=== PATIENT | female | born 1950 | race Caucasian/White ===

== ENCOUNTER 2022-03-20 01:58 | Emergency (ER) | payer MEDICARE, OTHER, SELFPAY ==
[2022-03-20 02:02] VITALS: BP 153/103; PULSE 72; RESP 13; TEMP 37.1; O2SAT 98; BMI 39.9
--- NOTE | 2022-03-20 02:19 | EKG12_ITS ---
Test Reason : CP Blood Pressure : / mmHG Vent. Rate : 069 BPM Atrial Rate : 069 BPM P-R Int : 150 ms QRS Dur : 118 ms QT Int : 412 ms P-R-T Axes : 036 -06 018 degrees QTc Int : 441 ms Sinus rhythm with Premature atrial complexes Inferior infarct , age undetermined Abnormal ECG Confirmed by CHINMAY TAO, ISIS ([id number]), subeditor FRANCISCO ROJO ([id number]) on 03/22/2022 10:51:31 AM Referred By: TL Confirmed By:ISIS MOY MD
--- NOTE | 2022-03-20 02:20 | RAD_ITS ---
EXAM: XR CHEST, 1 VIEW CLINICAL INDICATION: chest pain TECHNIQUE: Frontal view of the chest. This report was created using [employer] report generation technology. COMPARISON: June 05, 2013 showing elevated left hemidiaphragm. FINDINGS: LUNGS AND PLEURAL SPACES: Mildly increased appearance of elevated left hemidiaphragm possibly due to scarring, it is difficult to exclude some adjacent atelectasis or infiltrate. No pneumothorax. No effusion. HEART: Unremarkable. Cardiac silhouette not enlarged. MEDIASTINUM: Central airways and mediastinal contour are unremarkable. BONES/JOINTS: Unremarkable. SOFT TISSUES: Unremarkable. RAD/Chest 1 View (Portable) IMPRESSION: Increased elevation of the left hemidiaphragm and left basilar consolidation. Cannot exclude left diaphragmatic hernia, left basilar atelectasis or infiltrate. This could be better evaluated by CT if it is thought to be indicated. Otherwise stable exam. Electronically Signed: Luann Kidd MD at 3:07 EDT ,
[2022-03-20 02:27] LABS: Absolute Lymphocyte Count 1.73 X10^3/uL (0.83-4.51); Basophil# 0.04 X10^3/uL; Basophil% 0.4 % (0-1); Eosinophil# 0.08 X10^3/uL; Eosinophils% 0.7 % (0-5); Hemoglobin 13.5 g/dL (12.0-15.0); Lymphocyte # 1.73 X10^3/ul (0.83-4.51); Lymphocyte % 15.8 % (19-41); Mean Corp Hgb Conc 32.9 g/dL (32-36); Mean Corpuscular Hgb 29.9 pg (27.0-32.0); Mean Corpuscular Volume 90.9 fL (81-99); Mean Platelet Vol. 9.9 fl (6.2-12.0); Monocyte# 0.99 X10^3/uL; Monocyte% 9.1 % (0-10); NRBC Flagged by Analyzer 0 % (0-5); Neutrophil # 8.02 X10^3/uL (2.7-7.7); Neutrophil % 73.5 % (47-70); Platelet Count 261 K/mm3 (150-450); RBC Distribution Width CV 12.7 % (11.6-14.6); RBC Distribution Width SD 41.6 fl (35.1-43.9); Red Blood Count 4.51 M/mm3 (4.2-5.4); White Blood Count 10.9 K/mm3 (4.4-11.0)
[2022-03-20 02:46] LABS: AST(SGOT) 6 U/L (15-37); Alanine Aminotransfer ALT/SGPT 16 U/L (13-56); Albumin, Serum 3.8 g/dL (3.2-5.0); Alkaline Phosphatase 86 U/L (45-117); Anion Gap 6 (5-15); BUN 34 mg/dL (7-18); BUN/Creat Ratio 34.3 RATIO (10-20); Bilirubin, Direct 0.16 mg/dL (0.00-0.30); Calcium,Total 8.9 mg/dL (8.5-10.1); Chloride 103 mmol/L (98-107); Creatinine, Serum 0.99 mg/dL (0.55-1.02); EST Glomerular Filtration Rate 59 mL/min (>60); Est Glom Filt Rate - Afr Amer 71 mL/min (>60); Estimated Creatinine Clearance 46.22 ml/min; Globulin 3.1 g/dL (2.2-4.2); Glucose 122 mg/dL (74-106); Lipase 169 U/L (73-393); Protein, Total 6.9 g/dL (6.4-8.2); Sodium Level 138 mmol/L (136-145); Troponin-I HS (w/2H Reflex) < 3 pg/mL (3.0-54.0)
--- NOTE | 2022-03-20 02:47 | EDS_ITS ---
HPI History of Present Illness Chief Complaint: Chest Pain Informant: patient and spouse/S.O. Narrative Narrative: Presents by private vehicle with spouse sudden onset midsternal chest pain that is sharp in nature while sitting in front of computer 12:30 AM 2 hours prior to arrival. Pain wraps around both sides and upper jaw. States had nausea. Dyspnea with her COPD history on chronic 2 L of oxygen. Baseline cough. Remote tobacco. She had similar symptoms 3 months ago lasting hour did not get evaluated. No cardiac history. History of paroxysmal atrial fibrillation currently on baby aspirin took it this evening. Currently symptoms subsiding. Denies abdominal pain. Prior Similar Symptoms: Yes CVD Risk Factors: Positive for Hypertension, Diabetes and Smoking [facility] Medical History Atrial fibrillation COPD (chronic obstructive pulmonary disease) Diabetes Hypertension Irregular heart beat Home Medications aspirin 81 mg PO DAILY 03/20/22 [History Last Taken Unknown] baclofen 10 mg PO TID 03/20/22 [History Last Taken Unknown] cyanocobalamin (vitamin B-12) 1,000 mcg PO DAILY 03/20/22 [History Last Taken Unknown] diltiazem HCl 30 mg PO TID 03/20/22 [History Last Taken Unknown] ergocalciferol (vitamin D2) [Vitamin D2] 1,250 mcg PO QWEEK 03/20/22 [History Last Taken Unknown] fluticasone propionate 2 spray INTRANASAL DAILY 03/20/22 [History Last Taken Unknown] furosemide 40 mg PO DAILY 03/20/22 [History Last Taken Unknown] gabapentin 600 mg PO TID 03/20/22 [History Last Taken Unknown] insulin aspart U-100 [Novolog U-100 Insulin aspart] unit SUBCUT TID 03/20/22 [History Last Taken Unknown] insulin glargine [Lantus U-100 Insulin] 36 unit SUBCUT QPM 03/20/22 [History Last Taken Unknown] lisinopril 5 mg PO DAILY 03/20/22 [History Last Taken Unknown] loratadine 10 mg PO DAILY 03/20/22 [History Last Taken Unknown] montelukast 10 mg PO QHS 03/20/22 [History Last Taken Unknown] pantoprazole 20 mg PO DAILY 03/20/22 [History Last Taken Unknown] ropinirole 0.5 mg PO BID 03/20/22 [History Last Taken Unknown] sertraline 100 mg PO DAILY 03/20/22 [History Last Taken Unknown] Allergy/AdvReac Type Severity Reaction Status Date / Time meperidine [From Demerol] Allergy Itching Verified 03/20/22 02:00 Penicillins [PCN] Allergy Hives Verified 03/20/22 02:00 Surgical History H/O: hysterectomy S/P hernia repair Social History Smoking Status: Former smoker ROS ROS ED Constitutional Constitutional ED: Denies chills, fever(s) or sweats Eyes Eyes: Denies change in vision ENT ENT ED: Denies dysphagia or sore throat Cardiovascular Cardiovascular: Reports chest pain; Denies leg edema, palpitations or racing heartbeat Respiratory/Chest Respiratory/Chest: Reports cough and dyspnea; Denies dyspnea on exertion Gastrointestinal Gastrointestinal: Reports nausea; Denies abdominal pain, diarrhea or vomiting Genitourinary Genitourinary ED: Denies dysuria, hematuria or urinary frequency Musculoskeletal Musculoskeletal: Denies back pain, extremity pain or neck pain Integumentary Denies rash or wounds Neurologic Neurologic: Denies headache(s), paresthesias or weakness EXAM Physical Exam Const Vital Signs: 03/20/22 02:02 03/20/22 02:06 03/20/22 03:06 Temperature 98.7 F Temperature Source Temporal Pulse Rate 72 65 Respiratory Rate 13 15 Respiratory Effort Normal Respiratory Pattern Normal Blood Pressure 153/103 H 140/69 H Blood Pressure Mean 119 92 Pulse Ox 98 95 Oxygen Delivery Method Nasal Cannula Room Air Oxygen Flow Rate (L/min) 2 03/20/22 04:14 03/20/22 04:58 Temperature Temperature Source Pulse Rate 86 68 Respiratory Rate 18 20 H Respiratory Effort Respiratory Pattern Blood Pressure 133/66 H 121/67 H Blood Pressure Mean 88 Pulse Ox 98 Oxygen Delivery Method Oxygen Flow Rate (L/min) Positive well nourished and well developed Constitutional Narrative: Stable on 2 L nasal cannula. General Appearance ED: well developed and NAD HEENT Reports moist mucous membranes normocephalic and atraumatic Eyes PERRL, EOMs intact bilaterally and conjunctivae normal General Eye ED: Yes normal appearance of both eyes Neck no lymphadenopathy and supple Neck Narrative: Healed orifice base of anterior neck from previous tracheostomy General: Negative for tenderness Chest Wall Chest: Negative for tenderness Resp normal respiratory effort and normal air movement Effort and Inspection: symmetric chest movement; Negative for respiratory distress Cardio regular rate, regular rhythm and no murmurs Peripheral Pulses: pulses 2+ throughout GI normal to inspection, nondistended, normoactive bowel sounds and non-tender Palpation: Negative for guarding or rebound tenderness present Back/Spine no CVA tenderness and no thoracic nor lumbar tenderness Extremity normal to inspection General Extremety ED: Negative for edema or tenderness General Extremity: Negative for edema Neuro oriented x3 and no sensory deficits noted Sensorium / Orientation: awake and alert Skin no rashes or lesions noted and no wounds Heart Score History: Slightly/Non-Suspicious ECG: Nonspecific Repolarization Age: >/= 65 years Risk Factors: 1 or 2 Risk Factors Troponin: </= Normal Limit Score: 4 MDM MDM MDM Narrative Medical decision making narrative: Patient EKG T wave inversions anterior leads however no old for comparison. Cardiac work-up initiated. She took aspirin at home. I also checked abdominal labs with pain that radiates to her back with nausea symptoms. 0330: Chest x-ray 1 view reviewed by myself and read by radiology left elevated hemidiaphragm chronic from previous. Labs all stable troponin initial less than 3 lipase normal. On reevaluation symptom-free. Awaiting delta troponin. 0415: Review Clinisync, obtain nuclear stress test from February 03, 2021 . Results normal perfusion without any evidence of ischemia. Left wall motion greater than 65%. 0445: Repeat troponin negative, patient remains asymptomatic. Patient will follow-up with her PCP, strict return precautions. All questions were answered. Lab Data Attestation: I reviewed the patient's lab results. Labs: Laboratory Results - last 24 hr 03/20/22 03/20/22 03/20/22 02:07 02:07 04:11 WBC 10.9 RBC 4.51 Hgb 13.5 Hct 41.0 MCV 90.9 MCH 29.9 MCHC 32.9 RDW Std Deviation 41.6 RDW Coeff of Gil 12.7 Plt Count 261 MPV 9.9 Immature Gran % (Auto) 0.500 Neut % (Auto) 73.5 H Lymph % (Auto) 15.8 L [place] % (Auto) 9.1 Eos % (Auto) 0.7 Baso % (Auto) 0.4 Absolute Neuts (auto) 8.0 H Absolute Lymphs (auto) 1.73 Nucleated RBC % 0 Sodium 138 Potassium 4.0 Chloride 103 Carbon Dioxide 29.0 Anion Gap 6 BUN 34 H Creatinine 0.99 Estim Creat Clear Calc 46.22 Est GFR (MDRD) Af Amer 71 Est GFR (MDRD) Non-Af 59 L BUN/Creatinine Ratio 34.3 H Glucose 122 H Calcium 8.9 Total Bilirubin 0.40 Direct Bilirubin 0.16 AST 6 L ALT 16 Alkaline Phosphatase 86 Troponin I High Sens < 3 L 3 Total Protein 6.9 Albumin 3.8 Globulin 3.1 Lipase 169 Radiography Chest X-Ray - ED: 1 View and Read by ED Physician Diagnostic Testing: Clinical Impression(s) from Imaging Studies Chest X-Ray 03/20/22 02:20 IMPRESSION: Increased elevation of the left hemidiaphragm and left basilar consolidation. Cannot exclude left diaphragmatic hernia, left basilar atelectasis or infiltrate. This could be better evaluated by CT if it is thought to be indicated. Otherwise stable exam. Electronically Signed: Luann Kidd MD at 3:07 EDT , EKG Initial EKG: Attestation: I personally reviewed and interpreted this EKG as follows: Comments: Sinus rate of 69, no ST changes there is T wave inversions V1 V2. PAC noted. Discharge Plan Triage Chief Complaint: Chest Pain ED Provider: Hans Pearson Dx/Rx/DC Orders Clinical Impression: Chest pain, History of COPD Instructions: ED Chest Pain, Uncertain Cause Prescriptions: No Action furosemide 40 mg Tablet 40 mg PO DAILY RF: 0 gabapentin 600 mg tablet 600 mg PO TID RF: 0 sertraline 100 mg Tablet 100 mg PO DAILY RF: 0 cyanocobalamin (vitamin B-12) 1,000 mcg tablet 1,000 mcg PO DAILY RF: 0 pantoprazole 20 mg Tablet,Delayed Release (Dr/Ec) 20 mg PO DAILY RF: 0 baclofen 10 mg Tablet 10 mg PO TID RF: 0 ropinirole 0.5 mg tablet 0.5 mg PO BID RF: 0 montelukast 10 mg Tablet 10 mg PO QHS RF: 0 lisinopril 5 mg Tablet 5 mg PO DAILY RF: 0 ergocalciferol (vitamin D2) [Vitamin D2] 1,250 mcg (50,000 unit) Capsule 1,250 mcg PO QWEEK RF: 0 diltiazem HCl 30 mg Tablet 30 mg PO TID RF: 0 fluticasone propionate 50 mcg/actuation [place],Suspension 2 spray INTRANASAL DAILY RF: 0 loratadine 10 mg Capsule 10 mg PO DAILY RF: 0 aspirin 81 mg Capsule 81 mg PO DAILY RF: 0 insulin aspart U-100 [Novolog U-100 Insulin aspart] 100 unit/mL Solution SUBCUT TID RF: 0 Lantus U-100 Insulin 100 unit/mL Cartridge 36 unit SUBCUT QPM RF: 0 Primary Care Provider: Gregg Mccarthy Referrals: Gregg Mccarthy MD [Primary Care Provider] - 3-5 Days Activity Restrictions/Additional Instructions: Chest pain with a negative work-up. Follow-up with your doctor. Return if any worsening symptoms. Disposition Disposition: Home, Self Care Discharge Date/Time: 03/20/22 04:58
[2022-03-20 03:06] VITALS: BP 140/69; PULSE 65; RESP 15; O2SAT 95
[2022-03-20 04:14] VITALS: BP 133/66; PULSE 86; RESP 18
[2022-03-20 04:24] LABS: Reflex Troponin-HS? (from REC) Y
[2022-03-20 04:36] LABS: Troponin-I HS 3 pg/mL (3.0-54.0)
[2022-03-20 04:58] VITALS: BP 121/67; PULSE 68; RESP 20; O2SAT 98
== END 2022-03-20 04:58 | disposition home or self-care (01) ==
PROVIDERS: Emergency Provider Emergency Medicine; PCP Internal Medicine; Visit Provider Emergency Medicine
DX: R07.9 Chest pain, unspecified (principal); J44.9 Chronic obstructive pulmonary disease, unspecified; I48.0 Paroxysmal atrial fibrillation; E11.9 Type 2 diabetes mellitus without complications; Z79.4 Long term (current) use of insulin; R11.0 Nausea; Z87.891 Personal history of nicotine dependence; I10 Essential (primary) hypertension; R68.84 Jaw pain; Z99.81 Dependence on supplemental oxygen; Z79.82 Long term (current) use of aspirin; Z79.899 Other long term (current) drug therapy; I49.1 Atrial premature depolarization
CPT/HCPCS: 36415; 71045; 80048; 80076; 83690; 84484; 85025; 93005; 99285; A4216

== ENCOUNTER → 2022-04-09 | Outpatient (CLI) | payer MEDICARE, OTHER, SELFPAY ==
[2022-04-09 12:40] LABS: Absolute Lymphocyte Count 0.97 X10^3/uL (0.83-4.51); Absolute Neutrophil Count 4.7 X10^3/uL (2.0-7.7); Basophil# 0.02 X10^3/uL; Basophil% 0.3 % (0-1); Eosinophil# 0.16 X10^3/uL; Eosinophils% 2.5 % (0-5); Hematocrit 39.6 % (37-47); Hemoglobin 12.7 g/dL (12.0-15.0); Lymphocyte # 0.97 X10^3/ul (0.83-4.51); Lymphocyte % 14.9 % (19-41); Mean Corp Hgb Conc 32.1 g/dL (32-36); Mean Corpuscular Volume 93.6 fL (81-99); Monocyte# 0.58 X10^3/uL; Monocyte% 8.9 % (0-10); NRBC Flagged by Analyzer 0 % (0-5); Neutrophil # 4.73 X10^3/uL (2.7-7.7); Neutrophil % 72.9 % (47-70); Platelet Count 195 K/mm3 (150-450); RBC Distribution Width CV 13.2 % (11.6-14.6); RBC Distribution Width SD 45.1 fl (35.1-43.9); Red Blood Count 4.23 M/mm3 (4.2-5.4); White Blood Count 6.5 K/mm3 (4.4-11.0)
[2022-04-09 13:08] LABS: Anion Gap 6 (5-15); BUN 21 mg/dL (7-18); BUN/Creat Ratio 28.1 RATIO (10-20); Calcium,Total 9.3 mg/dL (8.5-10.1); Chloride 101 mmol/L (98-107); Creatinine, Serum 0.75 mg/dL (0.55-1.02); EST Glomerular Filtration Rate 81 mL/min (>60); Est Glom Filt Rate - Afr Amer 98 mL/min (>60); Glucose 82 mg/dL (74-106); Potassium 4.1 mmol/L (3.5-5.1); Sodium Level 140 mmol/L (136-145)
== END | disposition home or self-care (01) ==
LOC: LAB 11:53
PROVIDERS: PCP Internal Medicine; Referring Provider Internal Medicine Cardiovascular Disease; Visit Provider Internal Medicine Cardiovascular Disease
DX: R07.9 Chest pain, unspecified (principal); I45.2 Bifascicular block; I10 Essential (primary) hypertension
CPT/HCPCS: 36415; 80048; 85025

== ENCOUNTER 2022-04-23 09:58 | Day surgery (SDC) | payer MEDICARE, OTHER, SELFPAY ==
[2022-04-22 14:32] VITALS: BMI 39.7
--- NOTE | 2022-04-23 12:05 | CL.D_ITS ---
Patient Name: MENA JENKINS Study Date: 04/23/2022 Performing: Domenic Humphries MD Ht: 63 inches 160 cm : 1950 Wt: 238.4 lbs 108 kg Age: 71 Gender: female BSA: 2.08 PROCEDURE(S) PERFORMED [id number])LHC/COR/LV CLINICAL PROFILE AND INDICATIONS Indications: Worsening Angina Heart Failure: None Stress/Imaging Stress/Image Study Performed: No CAD Presentations: Stable angina. CONCLUSIONS Normal coronary arteries Normal LV size, wall motion,and systolic function RECOMMENDATIONS Medical therapy DESCRIPTION OF PROCEDURE The patient arrived to the procedure lab. The risks and benefits of the procedure as well as a full d escription of our services here and current unavailability of surgical backup were fully explained to the patient and/or their significant other prior to the catheterization. The Timeout was completed, verifying the correct patient and procedure. The patient's procedural site was prepped and draped in the usual fashion. Local anesthetic was given subcutaneously to right radial region with Lidocaine 2% . Using a modified Seldinger technique, arterial access was obtained via the right radial artery, a 6 Fr sheath was inserted. Left Coronary Artery selective angiography was performed in multiple views u sing a 5 Fr. 4.0 [place] catheter. Right Coronary Artery selective angiography was then performed in mu ltiple views using a 5 Fr. JR 5 catheter. Right Coronary Artery selective angiography was then perfor med in multiple views using a 5 Fr. JR4 catheter. Left Ventriculography was performed in [place] projection using a 5 Fr. [place] catheter. LV to AO pullback pressures were then recorded. CORONARY ANGIOGRAPHY DOMINANCE: Right Dominant LEFT HEART ASSESSMENT Left Ventricular Ejection Fraction: by LV Gram 60 % Normal LV wall motion Normal Left Ventricular systolic function LEFT MAIN: Dual ostium LEFT ANTERIOR DESCENDING ARTERY: No significant disease noted CIRCUMFLEX ARTERY: No significant disease noted RIGHT CORONARY ARTERY: No significant disease noted COMPLICATIONS PROCEDURE MEDICATIONS Versed 1 mg IV Fentanyl 50 mcg IV Versed 1 mg IV Versed 1 mg IV Versed 1 mg IV Oxygen: 2 L/min via nasal cannula Heparin given IA 04/23/2022 11:34:08 Verapamil 2.5mg, Ntg 100mcgs, 3000 units of Heparin given IA 04/23/2022 11:34:08 SUMMARY OF HEMODYNAMIC DATA Time AIR REST ECG 10:25:37 ECG 11:28:22 AO 98/61 (77) SA 11:39:50 LV 106/19, 28 11:59:31 LV 113/19, 36 11:59:42 LV 105/23, 37 12:00:27 LVp 105/26, 40 12:00:31 AOp 113/69 (91) 12:00:38 Signed By Domenic Humphries MD On 04/23/2022 12:04:50 PM Domenic Humphries MD
[2022-04-23 14:15] LABS: Bedside Glucose 173 mg/dL (74-106)
== END 2022-04-23 13:59 | disposition home or self-care (01) ==
LOC: CLSP 10:01
PROVIDERS: PCP Internal Medicine; Referring Provider Internal Medicine Cardiovascular Disease; Visit Provider Internal Medicine Cardiovascular Disease
DX: I25.118 Atherosclerotic heart disease of native coronary artery with other forms of angina pectoris (principal); J44.9 Chronic obstructive pulmonary disease, unspecified; E11.42 Type 2 diabetes mellitus with diabetic polyneuropathy; I48.0 Paroxysmal atrial fibrillation; Z79.4 Long term (current) use of insulin; F32.A Depression, unspecified; G47.33 Obstructive sleep apnea (adult) (pediatric); E55.9 Vitamin D deficiency, unspecified; I10 Essential (primary) hypertension; E78.5 Hyperlipidemia, unspecified; E66.9 Obesity, unspecified; S09.90XA Unspecified injury of head, initial encounter; Z79.82 Long term (current) use of aspirin; Z79.899 Other long term (current) drug therapy; Z87.891 Personal history of nicotine dependence; W01.0XXA Fall on same level from slipping, tripping and stumbling without subsequent striking against object, initial encounter; Y92.232 Corridor of hospital as the place of occurrence of the external cause
CPT/HCPCS: 70450; 82962; 93458; 99152; 99153; 99282; J7030; Q9967; C1769; C1894

== ENCOUNTER 2022-04-23 13:59 | Emergency (ER) | payer MEDICARE, OTHER, SELFPAY ==
[2022-04-23 14:00] VITALS: BP 131/68; PULSE 68; RESP 19; TEMP 36.4; O2SAT 97; BMI 42.3
--- NOTE | 2022-04-23 14:11 | ED.VIS.FALL ---
HPI <CHRISTIANO Rowland - Last Filed: 04/23/22 15:12> HPI - Fall History of Present Illness Chief Complaint: Fall Narrative Narrative: Just prior to arrival patient was in the Certified Prosthetist/Orthotist and after clean cath was postprocedure and was discharged. She was walking down the [place] with her walker and she fell and hit her head, left shoulder, left knee and right hand on the ground. She states she had tried to catch herself. Her rolling walker sometimes leaned to one side which caused her to fall. She denies any preceding headache, chest pain, shortness of breath, dizziness etc. She now has a mild headache. She only takes baby aspirin, no blood thinners. Denies visual changes nausea or vomiting. PFSH <CHRISTIANO Rowland - Last Filed: 04/23/22 15:12> [facility] Medical History Atrial fibrillation Chronic low back pain Chronic respiratory failure with hypoxia, on home O2 therapy Class 2 obesity with body mass index (BMI) of 39.0 to 39.9 in adult COPD (chronic obstructive pulmonary disease) Cor pulmonale Depression Essential hypertension Essential tremor Fibromyalgia H/O fibromyositis History of rheumatic fever Hyperlipidemia Irregular heart beat Kidney failure Obesity SELENA (obstructive sleep apnea) Osteoarthritis Paroxysmal atrial fibrillation (07/2020) Restless legs syndrome (RLS) 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 Thoracic outlet syndrome TMJ (dislocation of temporomandibular joint) Type 2 diabetes mellitus with diabetic polyneuropathy Vitamin B 12 deficiency Vitamin D deficiency Home Medications baclofen 10 mg tablet 10 mg PO TID 03/20/22 [History Last Taken Unknown] cyanocobalamin (vitamin B-12) 1,000 mcg tablet 1,000 mcg PO DAILY 03/20/22 [History Last Taken Unknown] ergocalciferol (vitamin D2) 1,250 mcg (50,000 unit) capsule (Vitamin D2) 1,250 mcg PO QWEEK 03/20/22 [History Last Taken Unknown] fluticasone propionate 50 mcg/actuation nasal spray,suspension 2 spray intranasal DAILY 03/20/22 [History Last Taken Unknown] lisinopril 5 mg tablet 5 mg PO DAILY 03/20/22 [History Last Taken 04/23/22] loratadine 10 mg capsule 10 mg PO DAILY 03/20/22 [History Last Taken Unknown] montelukast 10 mg tablet 10 mg PO QHS 03/20/22 [History Last Taken Unknown] pantoprazole 20 mg tablet,delayed release 20 mg PO DAILY 03/20/22 [History Last Taken Unknown] ropinirole 0.5 mg tablet 0.5 mg PO BID 03/20/22 [History Last Taken Unknown] acetaminophen 500 mg tablet 1,000 mg PO Q6H 04/02/22 [History Last Taken Unknown] aspirin 81 mg tablet,delayed release (Adult Low Dose Aspirin) 81 mg PO DAILY 04/02/22 [History Last Taken 04/23/22] gabapentin 600 mg tablet 1,200 mg PO TID 04/02/22 [History Last Taken Unknown] insulin aspart U-100 100 unit/mL subcutaneous solution (Novolog U-100 Insulin aspart) 10 unit subcut TID 04/02/22 [History Last Taken Unknown] insulin glargine 100 unit/mL subcutaneous cartridge 50 unit subcut QPM 04/02/22 [History Last Taken Unknown] oxycodone-acetaminophen 7.5 mg-325 mg tablet 1 tab PO BID PRN Chest Pain 04/02/22 [History Last Taken Unknown] potassium chloride 20 mEq tablet,extended release(part/cryst) 20 meq PO DAILY 04/02/22 [History Last Taken 04/23/22] atorvastatin 40 mg tablet (Lipitor) 40 mg PO DAILY #90 tabs 04/09/22 [Rx Last Taken Unknown] furosemide 20 mg tablet 40 mg PO BID 04/09/22 [History Last Taken Unknown] metoprolol succinate 50 mg tablet,extended release 24 hr (Toprol XL) 50 mg PO DAILY #90 tabs 04/09/22 [Rx Last Taken 04/23/22] primidone 50 mg tablet 50 mg PO BID 04/09/22 [History Last Taken Unknown] sertraline 100 mg tablet 100 mg PO DAILY 04/09/22 [History Last Taken Unknown] albuterol sulfate 90 mcg/actuation aerosol inhaler 2 puff inhalation Q6H PRN shortness of breath or wheezing #8.5 grams 04/20/22 [Rx Last Taken Unknown] blood sugar diagnostic (Accu-Chek SmartView Test Strips) #100 ea 04/20/22 [Rx Last Taken Unknown] ipratropium 0.5 mg-albuterol 3 mg (2.5 mg base)/3 mL nebulization soln 3 ml inhalation 4X/DAY #180 mL 04/20/22 [Rx Last Taken Unknown] Allergy/AdvReac Type Severity Reaction Status Date / Time house dust Allergy Nasal Verified 04/20/22 15:02 congestion and watery eyes meperidine [From Demerol] Allergy Itching Verified 04/20/22 15:02 mold Allergy nasal Verified 04/20/22 15:02 congestion and watery eyes Penicillins [PCN] Allergy Hives Verified 04/20/22 15:02 trees Allergy Unknown nasal Uncoded 04/20/22 15:02 congestion and watery eyes Family History Mother COPD (chronic obstructive pulmonary disease) Colon cancer Father COPD (chronic obstructive pulmonary disease) Myocardial infarction Alcoholism Emphysema lung Sister Breast cancer Cancer Lung cancer Brother COPD (chronic obstructive pulmonary disease) Aunt Diabetes Surgical History H/O: hysterectomy History of colonoscopy History of dilatation and curettage History of knee replacement History of radiofrequency ablation (RFA) of nerve of cervical spine History of thumb surgery History of tonsillectomy History of tracheostomy History of umbilical hernia repair Social History household members: spouse current occupational status: retired 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 Eyes: Negative for visual change. ENT: Negative for sore throat, ear pain, rhinorrhea. CVS: Negative for palpitations, chest pain, syncope. Respiratory: Negative for shortness of breath, cough, orthopnea. GI: Negative for abdominal pain, nausea, vomiting, diarrhea, constipation, melena, hematochezia. : Negative for dysuria, hematuria or frequency. Neuro: Positive for headache, negative for motor/sensory dysfunction. Skin: Negative for rash, abscess, or wound. Musc: Negative for joint pain, swelling, trauma. Heme: Negative for easy bruising, bleeding, lymphadenopathy. EXAM <CHRISTIANO Rowland - Last Filed: 04/23/22 15:12> Physical Exam Narrative Exam Narrative: CONST: Patient sitting in no acute distress. EYES: Normal inspection. HEAD: Very small left temporal hematoma, no abrasions or lacerations, no deformity or crepitus. No raccoon eyes or lo sign, no hemotympanum, no nasal septal hematoma, no CSF otorrhea or rhinorrhea. NECK: Normal inspection. No midline spinal tenderness, no step off or crepitus. RESP: No respiratory distress, CTAB. CVS: Regular rate and rhythm, no murmur, no gallop. ABD: Soft and nontender, no guarding or rebound, nondistended. Pelvis: Stable, nontender. Back: Normal inspection, no midline spinal tenderness, no step off or crepitus. SKIN: Color normal, no rash, warm, dry, intact. EXTREMITIES: Normal appearance, no tenderness of upper or lower extremities. 2+ radial and DP pulses. NEURO: Oriented x4. PSYCH: Normal affect. Const Vital Signs: 04/23/22 14:00 04/23/22 14:05 Temperature 97.5 F L Temperature Source Temporal Pulse Rate 68 Respiratory Rate 19 H Respiratory Effort Normal Non-Labored Respiratory Depth Normal Respiratory Pattern Normal Blood Pressure 131/68 H Blood Pressure Mean 89 Pulse Ox 97 Oxygen Delivery Method Nasal Cannula Nasal Cannula Oxygen Flow Rate (L/min) 2 2 <Dr. Jose Nash MD - Last Filed: 04/23/22 15:12> Physical Exam Const Vital Signs: 04/23/22 14:00 04/23/22 14:05 Temperature 97.5 F L Temperature Source Temporal Pulse Rate 68 Respiratory Rate 19 H Respiratory Effort Normal Non-Labored Respiratory Depth Normal Respiratory Pattern Normal Blood Pressure 131/68 H Blood Pressure Mean 89 Pulse Ox 97 Oxygen Delivery Method Nasal Cannula Nasal Cannula Oxygen Flow Rate (L/min) 2 2 MDM <CHRISTIANO Rowland - Last Filed: 04/23/22 15:12> MDM MDM Narrative Medical decision making narrative: Patient had an outpatient heart cath that was clean and had been discharged. She was walking down the hallway with her walker and fell striking her head shoulder and side on the ground. No LOC. She has mild headache but no other symptoms. Not on anticoagulation. She has a very small left temporal hematoma but no deformity or crepitus. No signs of basilar skull fracture. Pupils equal and reactive, extraocular motion intact. No tenderness of the facial bones. No tenderness of chest abdomen back spine or upper or lower extremities. Neurovascularly intact. Records from cath procedure state she got versed, fentanyl, and heparin. Thus I will do a CT scan of her brain with the head injury. CT is negative. Patient was discharged in stable condition. 1. Closed head injury without loss of consciousness Radiography Diagnostic Testing: Clinical Impression(s) from Imaging Studies Brain CT 04/23/22 14:48 IMPRESSION: Normal unenhanced CT scan of the brain. Electronically Signed: Eddie Galindo MD at 15:06 EDT , <Dr. Jose Nash MD - Last Filed: 04/23/22 15:12> [facility] MDM Narrative Medical decision making narrative: Patient had an outpatient heart cath that was clean and had been discharged. She was walking down the hallway with her walker and fell striking her head shoulder and side on the ground. No LOC. She has mild headache but no other symptoms. Not on anticoagulation. She has a very small left temporal hematoma but no deformity or crepitus. No signs of basilar skull fracture. Pupils equal and reactive, extraocular motion intact. No tenderness of the facial bones. No tenderness of chest abdomen back spine or upper or lower extremities. Neurovascularly intact. Records from cath procedure state she got versed, fentanyl, and heparin. Thus I will do a CT scan of her brain with the head injury. CT scan shows no acute process. Patient is doing well. We will get her home at this time. Radiography Diagnostic Testing: Clinical Impression(s) from Imaging Studies Brain CT 04/23/22 14:48 IMPRESSION: Normal unenhanced CT scan of the brain. Electronically Signed: Eddie Galindo MD at 15:06 EDT , Treatment and Re-Evaluation Narrative: I have personally performed a face to face assessment of the patient and have reviewed the AZIZA Note. I performed a substantive portion of the visit including all aspects of the following. My chou findings include: History is consistent with patient following. She had a heart catheterization. This catheterization ended up showing normal coronary arteries. She states she was using her wheeled walker that also doubles as a wheelchair. She states that that was the fourth time that that walker has thrown me. She states it tipped over when she leans on it. Her verifies this. She states she did not pass out. She did hit her head. She has little soreness but that is it. She is not on blood thinners. However, she did get heparin during her procedure just before this. She also got multiple doses of Versed and some fentanyl. Exam shows the patient is wide-awake alert and appropriate. There is small contusion on the side of her head. Neck is not tender. No extremity injury. She really does not want blood work done as she just had blood work done beginning of this month. I think that is reasonable because she was not syncopal. This was a mechanical fall. Medical Decison Making: Patient will have CT of the head done. As long as she is having no further symptoms and that is normal we should be able to get her home. Discharge Plan Triage Chief Complaint: Fall ED Midlevel Provider: Darby Altman ED Provider: Jose Nash Dx/Rx/DC Orders Clinical Impression: Head injury Instructions: ED Head Injury (Adult) Prescriptions: No Action sertraline 100 mg tablet 100 mg PO DAILY furosemide 20 mg tablet 40 mg PO BID primidone 50 mg tablet 50 mg PO BID Label Comments: TAKE 2 TABLETS BY MOUTH TWICE DAILY metoprolol succinate [Toprol XL] 50 mg tablet extended release 24 hr 50 mg PO DAILY Qty: 90 3RF atorvastatin [Lipitor] 40 mg tablet 40 mg PO DAILY Qty: 90 4RF aspirin [Adult Low Dose Aspirin] 81 mg tablet,delayed release (DR/EC) 81 mg PO DAILY oxycodone-acetaminophen 7.5-325 mg tablet 1 tab PO BID PRN (Reason: Chest Pain) Label Comments: TAKE 1 TABLET BY MOUTH TWICE DAILY NEEDED FOR PAIN potassium chloride 20 mEq tablet,ER particles/crystals 20 meq PO DAILY Label Comments: TAKE 1 TABLET BY MOUTH ONCE DAILY acetaminophen 500 mg tablet 1,000 mg PO Q6H (DME) Accu-Chek SmartView Test Strip Strip See Rx Instructions .Route Qty: 100 0RF Rx Instructions: As directed albuterol sulfate 90 mcg/actuation HFA aerosol inhaler 2 puff inhalation Q6H PRN (Reason: shortness of breath or wheezing) Qty: 8.5 1RF ipratropium-albuterol 0.5 mg-3 mg(2.5 mg base)/3 mL solution for nebulization 3 ml inhalation 4X/DAY Qty: 180 0RF cyanocobalamin (vitamin B-12) 1,000 mcg tablet 1,000 mcg PO DAILY Label Comments: TAKE 1 TABLET BY MOUTH ONCE DAILY DIRECTED pantoprazole 20 mg Tablet,Delayed Release (Dr/Ec) 20 mg PO DAILY baclofen 10 mg Tablet 10 mg PO TID ropinirole 0.5 mg tablet 0.5 mg PO BID Label Comments: TAKE 1 TAB BY MOUTH DAILY 1-3 HRS BEFORE BEDTIME montelukast 10 mg Tablet 10 mg PO QHS lisinopril 5 mg Tablet 5 mg PO DAILY ergocalciferol (vitamin D2) [Vitamin D2] 1,250 mcg (50,000 unit) Capsule 1,250 mcg PO QWEEK Rx Instructions: tuesday fluticasone propionate 50 mcg/actuation [place],Suspension 2 spray INTRANASAL DAILY loratadine 10 mg Capsule 10 mg PO DAILY gabapentin 600 mg tablet 1,200 mg PO TID Label Comments: TAKE 2 TABLETS BY MOUTH THREE TIMES DAILY insulin glargine 100 unit/mL cartridge 50 unit SUBCUT QPM insulin aspart U-100 [Novolog U-100 Insulin aspart] 100 unit/mL solution 10 unit SUBCUT TID Rx Instructions: sliding scale Primary Care Provider: Aixa Magdalneo Referrals: Aixa Magdaleno MD [Primary Care Provider] - Activity Restrictions/Additional Instructions: The CT scan of your head looked normal. Take tylenol as needed. Disposition Disposition: Home, Self Care
--- NOTE | 2022-04-23 14:48 | CT_ITS ---
STUDY: CT BRAIN WITHOUT CONTRAST REASON FOR EXAM: Female, 71 years old. Head injury RADIATION DOSAGE (If Supplied By Facility): CTDIvol = ( 44.99 ) mGy, DLP = ( 846.73 ) mGycm TECHNIQUE: Transaxial CT imaging of the brain was performed without administration of intravenous contrast material. Individualized dose optimization techniques were used for this CT. COMPARISON: No relevant priors. FINDINGS: Normal soft tissue structures. There is hyperostosis frontalis internus. Normal size ventricles and extra-axial spaces for the patient''s age. Normal white matter tracts of the cerebral hemispheres. Normal basal ganglia and thalami. Normal brainstem. Normal cerebellum. There is no intracranial hemorrhage. There are no findings of an acute ischemic infarction. Normal visualized paranasal sinuses. CT/Brain/Head without Contrast IMPRESSION: Normal unenhanced CT scan of the brain. Electronically Signed: Eddie Galindo MD at 15:06 EDT ,
[2022-04-23 15:19] VITALS: BP 118/79; PULSE 68; RESP 17; O2SAT 98
== END 2022-04-23 15:19 | disposition home or self-care (01) ==
PROVIDERS: Emergency Provider Emergency Medicine; PCP Internal Medicine; Visit Provider Emergency Medicine
DX: S09.90XA Unspecified injury of head, initial encounter (principal); J44.9 Chronic obstructive pulmonary disease, unspecified; E11.42 Type 2 diabetes mellitus with diabetic polyneuropathy; E78.5 Hyperlipidemia, unspecified; I10 Essential (primary) hypertension; E66.9 Obesity, unspecified; Z87.891 Personal history of nicotine dependence; W01.0XXA Fall on same level from slipping, tripping and stumbling without subsequent striking against object, initial encounter; Y92.232 Corridor of hospital as the place of occurrence of the external cause; Z79.899 Other long term (current) drug therapy
CPT/HCPCS: 99282; 70450

== ENCOUNTER → 2022-05-07 | Outpatient (CLI) | payer MEDICARE, OTHER, SELFPAY ==
--- NOTE | 2022-05-07 09:50 | RAD_ITS ---
STUDY: AIR CONTRAST UPPER GI SERIES and esophagram. REASON FOR EXAM: Female, 71 years old. R13.10 - Dysphagia, unspecified FLUOROSCOPY TIME (if supplied): (36 seconds) minutes/seconds. 32 images were obtained. TECHNIQUE: SINGLE CONTRAST AND AIR CONTRAST FLUOROSCOPIC IMAGES. COMPARISON: None. FINDINGS: The cervical esophagus demonstrates normal motility without aspiration. There is no stricture or extrinsic mass effect. No intraluminal polypoid mass is identified. The patient ingested a 12 mm tablet of barium without any difficulty. The thoracic esophagus distends well without stricture or mucosal fold thickening. No mucosal ulcerations are identified. There is no extrinsic mass effect. There are no diverticula. No hiatal hernia or gastroesophageal reflux was identified. The stomach distends well without mucosal fold thickening or mucosal ulceration. There is no intraluminal mass. The duodenal bulb is freely distensible without deformity or ulceration. The duodenal sweep is normal in position and caliber. There is evidence of a large diverticulum in the third portion of the duodenum. 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 Electronically Signed: Eddie Galindo MD at 11:00 EDT ,
== END | disposition home or self-care (01) ==
LOC: RAD 09:28
PROVIDERS: PCP Internal Medicine; Referring Provider Surgery; Visit Provider Surgery
DX: R13.10 Dysphagia, unspecified (principal); R11.10 Vomiting, unspecified
CPT/HCPCS: 74246

== ENCOUNTER 2022-05-19 08:20 | Day surgery (SDC) | payer MEDICARE, OTHER, SELFPAY ==
[2022-05-19] VITALS (7 sets, daily range): BP systolic 93–116; BP diastolic 52–64; PULSE 59–78; RESP 16; TEMP 36.5–36.6; O2SAT 95–98; BMI 41.1
--- NOTE | 2022-05-19 08:48 | HP.PCM_ITS ---
History and Physical Date of Admission: 05/19/22 Date of Service:? 04/28/22 MR#: [id number] Acct: [id number] Name:? MENA JENKINS : 1950 ? Provider: Dr. Marcela Norman MD Age/Sex:? 71/F ? Location: [facility] Status: Signed Intake Vital Signs ? 04/20/2214:59 04/23/2214:00 04/28/2209:06 Height 5 ft 3 in 5 ft 5 in 5 ft 5 in Weight: ? 254 lb 10.142 oz 248 lb 8 oz BMI ? 42.3 41.3 BP ? 131/68 H 113/69 Blood Pressure Location ? ? Rt radial Position ? ? Sitting Respiration ? 19 H 20 H Pulse ? 68 70 Pulse Source ? ? NIBP Temp ? 97.5 F L 97.7 F L Temp Source ? Temporal Temporal Pulse Oximetry (%) ? 97 97 Oxygen Delivery Method ? ? room air Oxygen Flow Rate (L/min) ? 2 ? 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 Required: No Is patient in pain?: No Allergies house dust Allergy (Verified 04/28/22 09:11) Nasal congestion and watery eyesmeperidine [From Demerol] Allergy (Verified 04/28/22 09:11) Itchingmold Allergy (Verified 04/28/22 09:11) nasal congestion and watery eyesPenicillins [PCN] Allergy (Verified 04/28/22 09:11) Hivestrees Allergy (Unknown, Uncoded 04/28/22 09:11) nasal congestion and watery eyes Is last menstrual period known: No Post menopausal: Yes Patient : No [facility] Medical History?(Updated 04/28/22 @ 09:13 by Tasha Lassiter) Atrial fibrillation Chronic low back pain Chronic respiratory failure with hypoxia, on home O2 therapy Class 2 obesity with body mass index (BMI) of 39.0 to 39.9 in adult COPD (chronic obstructive pulmonary disease) Cor pulmonale Depression Essential hypertension Essential tremor Fibromyalgia H/O fibromyositis History of rheumatic fever Hyperlipidemia Irregular heart beat Kidney failure Obesity SELENA (obstructive sleep apnea) Osteoarthritis Paroxysmal atrial fibrillation (07/2020) Restless legs syndrome (RLS) 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 Mother COPD (chronic obstructive pulmonary disease) Colon cancerFather COPD (chronic obstructive pulmonary disease) Myocardial infarction Alcoholism Emphysema lungSister Breast cancer Cancer ?? ? Lung cancerBrother COPD (chronic obstructive pulmonary disease)Aunt Diabetes Social History? household members:? spouse current occupational status:? retired current occupation:? 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 Former smoker Tobacco: How many years used:? 20 Electronic Cigarette Use:? not used alcohol intake:? never substance use type:? does not use caffeine:? Yes do you feel safe at home:? Yes HPI HPI HPI: MENA JENKINS, is a 71 F who presents to the office today for frequent regurgitation.? Patient states she has previously had barium swallow about 10 years ago and told she had a spastic esophagus.? Patient did have a trach in 2013 due to respiratory failure which was also removed in 2013.? Patient's never had a previous EGD.? Patient states that she has been on the PPI and had that has decreased the burning in the esophagus.? Patient states that daily she will have regurgitation of food and it can be solid and occasionally liquid as well.? Patient states she feels like it goes down but then it comes right back up either sticks in her throat goes back down or comes back into her mouth.? Patient states she may have been told she had a hiatal hernia in the past.? Patient just had a colonoscopy in January 2022 recommended follow-up in 5 years per pt. Exam Const General: cooperative, healthy appearing and no acute distress HENMT Head: normal to inspection Resp Effort & Inspection: normal respiratory effort Cardio Rate: regular rate GI Inspection: non-distended Palpation: soft, no guarding and nontender Skin General: no rashes or lesions noted Neuro General: patient oriented x3 Extrem General: no clubbing, cyanosis or edema Psych Affect: normal affect Assessment and Plan Assessment and Plan (1) Regurgitation and rechewing of food: ?Status:?Acute (2) Dysphagia: ?Status:?Acute ? ? ? Orders: Orders Upper GI w/BA Swallow 04/28/22 R11.10 - Vomiting, unspecified, R13.10 - Dysphagia, unspecified ? Plan We will plan to check an barium swallow.? Discussed with patient that if she does have any evidence of a stricture would plan to have 1 my colleagues who does dilatations to her EGD otherwise we will plan to proceed with an EGD at that time.? Will call patient with barium swallow results. I have discussed the above with the patient. I have offered the patient esophagogastroduodenoscopy for evaluation. I have explained the risks/benefits of the procedure and described the procedure.? I have discussed the risks with the patient, including but not limited to:? infection, bleeding, perforation of the GI tract requiring emergency surgery, inability to complete the procedure, injury to any internal organs, complications of anesthesia, etc. - the patient understands and agrees to proceed. I have answered all the patient's questions to the patient's satisfaction and the patient has no further questions. Marcela Norman M.D. Pager: [phone] [facility] [address] [place] [address], [address] [place] [address] Office: [phone] Coding Level of Care Code Off vis,new,level 3 Diagnoses Regurgitation and rechewing of food? R11.10 Dysphagia? R13.10 04/30/22 1049 <Electronically signed by Marcela Norman MD> Date Marcela Norman MD
[2022-05-19] MEDS: Lactated Ringers 1,000 ML 15 ML IV (09:05)
[2022-05-19 09:25] LABS: Bedside Glucose 135 mg/dL (74-106)
--- NOTE | 2022-05-19 09:45 | EGD_PTH ---
PATIENT: MENA JENKINS LOC: EN U#:[id number] AGE/SX: 72/F ROOM: RE05/19/[address]: Dr. Marcela Norman MD : 1950 BED: DIS: 05/19/2022 SPEC #: [id number] RECD: 05/19/22 11:04 STATUS: CLIFFORD ROGERIO #: [id number] JUNO: 05/19/22 09:[address]: Marcela Norman DEPT: SURGICAL PATHOLOGY RECD BY: Nadira Vargas ENTERED: 05/19/22 11:43 SP TYPE: EGD BIOPSY OT DR: Dr. Aixa Magdaleno MD Tissues: ULCER Procedures: Surgery Specimen Level IV HEADER OPERATION: EGD ([facility]) PRE-OP DIAGNOSIS: Regurgitation and re-chewing of food, dysphagia TISSUE SUBMITTED: Pre-pyloric ulcer biopsy MICROSCOPIC DIAGNOSIS Pre-pyloric ulcer, biopsy: Acute and chronic inflammation with focal denudation of mucosa. AM:willy 05/20/2022 COMMENT The results of immunohistochemistry for Helicobacter pylori will be reported separately ([id number]). MICROSCOPIC DESCRIPTION Slides are reviewed. GROSS DESCRIPTION Received in fixative is one container labeled with the patient's name and designated pre-pyloric ulcer biopsy. The specimen consists of one irregular fragment of light jasmine soft tissue that measures 0.5 x 0.2 x 0.1 cm. The specimen is totally submitted in one cassette. / SJ:willy 05/19/2022 TC:2 CPT: 13540
--- NOTE | 2022-05-19 09:45 | IMM_PTH ---
PATIENT: MENA JENKINS LOC: EN U#:[id number] AGE/SX: 72/F ROOM: RE05/19/[address]: Dr. Marcela Norman MD : 1950 BED: DIS: 05/19/2022 SPEC #: [id number] RECD: 05/19/22 11:40 STATUS: [place] REQ #: [id number] JUNO: 05/19/22 09:[address]: Marcela Norman DEPT: IMMUNOHISTOCHEMISTRY RECD BY: Meme Belcher ENTERED: 05/19/22 11:41 SP TYPE: IMMUNO OTHR DR: Dr. Aixa Magdaleno MD Tissues: Pyloric portion of stomach Procedures: H Pylori (initial) PHYSICIAN & INSTITUTION [place] [id number] SPECIMEN INFORMATION: Tissue Source: Pre-pyloric ulcer biopsy Clinical Info: Regurgitation and re-chewing of foot, dysphagia Specimen Number: [id number] CPT code: 22991 METHODOLOGY: Deparaffinized sections of prefer/formalin-fixed tissue or PAP/DQ stained slides are incubated with monoclonal/polyclonal antibodies/oligonucleotide probes. Localization is made via biotin free immunoperoxidase method. Appropriate controls are performed and reacted as expected. Results on target cell population are indicated in the following table: RESULTS: ANTIBODY / CLONE RESULT H Pylori (polyclonal) negative These tests were developed and their performance characteristics determined by [facility]. They may not have been cleared or approved by the U.S. Food and Drug Administration. The FDA has determined that such clearance or approval is not necessary. The above immunohistochemical/dualISH markers are ordered and reviewed by the Pathologist. INTERPRETATION: Pre-pyloric ulcer, biopsy: Negative for Helicobacter pylori organisms. AM:willy 05/20/2022
--- NOTE | 2022-05-19 10:10 | OP.EGD_ITS ---
Patient Name: Tish Herring Procedure Date: 05/19/2022 9:40 AM Date of : 1950 Age: 72 Procedure: Upper GI endoscopy Indications: Dysphagia Providers: Marcela Norman MD Referring MD: Aixa Magdaleno Md Medicines: Monitored Anesthesia Care Patient Profile: This is a 72 year old female. Complications: No immediate complications. Procedure: Pre-Anesthesia Assessment: - Prior to the procedure, a History and Physical was performed, and patient medications and allergies were reviewed. The patient's tolerance of previous anesthesia was also reviewed. The risks and benefits of the procedure and the sedation options and risks were discussed with the patient. All questions were answered, and informed consent was obtained. Prior Anticoagulants: The patient has taken aspirin [Days Prior to Procedure]. ASA Grade Assessment: Per anesthesia. After reviewing the risks and benefits, the patient was deemed in satisfactory condition to undergo the procedure. After obtaining informed consent, the endoscope was passed under direct vision. Throughout the procedure, the patient's blood pressure, pulse, and oxygen saturations were monitored continuously. The gastroscope was introduced through the mouth, and advanced to the second part of duodenum. The upper GI endoscopy was accomplished without difficulty. The patient tolerated the procedure well. Scope In: 9:53:40 AM Scope Out: 9:57:47 AM Total Procedure Duration Time 0 hours 4 minutes 7 seconds Findings: The Z-line was variable and was found 40 cm from the incisors. One non-bleeding superficial gastric ulcer with no stigmata of bleeding was found in the prepyloric region of the stomach. The lesion was 5 mm in largest dimension. Biopsies were taken with a cold forceps for histology. Biopsies were taken with a cold forceps for Helicobacter pylori cultures. Striped moderately erythematous mucosa without bleeding was found in the prepyloric region of the stomach. The cardia and gastric fundus were normal on retroflexion. No endoscopic abnormality was evident in the esophagus to explain the patient's complaint of dysphagia. Impression: - Z-line variable, 40 cm from the incisors. - Non-bleeding gastric ulcer with no stigmata of bleeding. Biopsied. - Erythematous mucosa in the prepyloric region of the stomach. - No endoscopic esophageal abnormality to explain patient's dysphagia. Recommendation: - Await pathology results. - Discharge patient to home. - Resume previous diet. - Continue present medications. - Use sucralfate tablets 1 gram PO QID for 1 month. - Use Protonix (pantoprazole) 40 mg PO daily. Procedure Code(s): --- Professional --- 01038, Esophagogastroduodenoscopy, flexible, transoral; with biopsy, single or multiple Diagnosis Code(s): --- Professional --- K22.8, Other specified diseases of esophagus K25.9, Gastric ulcer, unspecified as acute or chronic, without hemorrhage or perforation K31.89, Other diseases of stomach and duodenum R13.10, Dysphagia, unspecified CPT copyright 2017 [employer] [place] [employer]. All rights reserved. The codes documented in this report are preliminary and upon inpatient coder review may be revised to meet current compliance requirements. MD Marcela Aldana MD 05/19/2022 10:10:09 AM This report has been signed electronically. Number of Addenda: 0 Note Initiated On: 05/19/2022 9:40 AM
--- NOTE | 2022-05-19 10:10 | OP.CCLET_ITS ---
05/19/2022 Aixa Magdaleno Md Re : Upper GI endoscopy procedure for Tish Herring Dear Sharla This procedure was performed on Thursday, May 19, 2022. My impressions and recommendations are as follows: Impressions : - Z-line variable, 40 cm from the incisors. - Non-bleeding gastric ulcer with no stigmata of bleeding. Biopsied. - Erythematous mucosa in the prepyloric region of the stomach. - No endoscopic esophageal abnormality to explain patient's dysphagia. Recommendations : - Await pathology results. - Discharge patient to home. - Resume previous diet. - Continue present medications. - Use sucralfate tablets 1 gram PO QID for 1 month. - Use Protonix (pantoprazole) 40 mg PO daily. My findings are described in the full procedure note, which is enclosed. If I can be of further assistance, please feel free to contact me at Doctor phone number(s): , Work: . Sincerely, MD Marcela Aldana MD 05/19/2022 10:10:09 AM This report has been signed electronically.
== END 2022-05-19 11:07 | disposition home or self-care (01) ==
LOC: EN 08:22 → AC 08:23
PROVIDERS: PCP Internal Medicine; Referring Provider Internal Medicine; Visit Provider Surgery
PROC: 0DJ08ZZ Inspection of Upper Intestinal Tract, Via Natural or Artificial Opening Endoscopic (ICD-10-PCS; CPT 43235; principal; 2022-05-19 09:40)
DX: K25.3 Acute gastric ulcer without hemorrhage or perforation (principal); J44.9 Chronic obstructive pulmonary disease, unspecified; I48.0 Paroxysmal atrial fibrillation; Z79.4 Long term (current) use of insulin; E11.9 Type 2 diabetes mellitus without complications; K31.89 Other diseases of stomach and duodenum; G47.33 Obstructive sleep apnea (adult) (pediatric); F32.A Depression, unspecified; I10 Essential (primary) hypertension; E78.00 Pure hypercholesterolemia, unspecified; E55.9 Vitamin D deficiency, unspecified; Z99.81 Dependence on supplemental oxygen; Z87.891 Personal history of nicotine dependence; Z79.899 Other long term (current) drug therapy; Z79.82 Long term (current) use of aspirin
CPT/HCPCS: 43239; 82962; 88305; 88342; J7120; J2405

== ENCOUNTER → 2022-06-17 | Outpatient (CLI) | payer MEDICARE, OTHER, SELFPAY | END | disposition home or self-care (01) | LOC: LABSPEC 11:19 | PROVIDERS: PCP Internal Medicine; Referring Provider Internal Medicine; Visit Provider Internal Medicine | DX: R06.02 Shortness of breath (principal); Z20.822 Contact with and (suspected) exposure to COVID-19 | CPT/HCPCS: 87635; U0003; U0005 ==

== ENCOUNTER → 2022-07-12 | Outpatient (CLI) | payer MEDICARE, OTHER, SELFPAY ==
--- NOTE | 2022-07-12 11:20 | RAD_ITS ---
HISTORY: FALL. TECHNIQUE: XR Spine Lumbar 2 or 3 Views. COMPARISON: None. FINDINGS: VERTEBRAE: Vertebral body heights preserved. Degenerative changes of the posterior elements. Incomplete fusion of the S1 posterior elements. ALIGNMENT: Mild retrolisthesis of L1-2, L2-3, L3-4, and L4-5. INTERVERTEBRAL DISCS: Intervertebral disc space narrowing with endplate sclerosis and osteophytes at L1-2, L2-3, and L4-5. RAD/Lumbar Spine 2 or 3 Views IMPRESSION: Multilevel degenerative change with mild retrolisthesis at multiple levels. No acute fracture identified in the lumbar spine. Electronically Signed: Radha Flores MD at 11:46 EDT ,
== END | disposition home or self-care (01) ==
PROVIDERS: PCP Internal Medicine; Referring Provider Anesthesiology Pain Medicine; Visit Provider Anesthesiology Pain Medicine
DX: M47.816 Spondylosis without myelopathy or radiculopathy, lumbar region (principal); M51.36 Other intervertebral disc degeneration, lumbar region
CPT/HCPCS: 72100

== ENCOUNTER 2022-07-15 14:00 | Outpatient (RCR) | payer MEDICARE, OTHER, SELFPAY ==
--- NOTE | 2022-06-08 13:27 | HP.PTEVAL_ITS ---
Patient's Visit Information MENA JENKINS is a 72 year old F referred to Physical Therapy by Dr. Estela Marie MD with a diagnosis of BACK PAIN. Date of Evaluation: 06/08/22 Physical Therapist: Maikol Belcher, PT, Cert MDT, OCS - Visit Plan Frequency: 2x /Week Duration: 4 Weeks Plan: PT INTERVETIONS DLS ,POSTURAL EX'S ,FUNCTIONAL STRENGTHENING ,LUMBAR ROM AND MODALTIES PRN - Subjective This 72 y/o female presents to physical therapy back pain. Patient has had back many years ~ [address] Richards did 2 epidural injections which did not help. MEDS bactofilin and oxycodone. Location of pain symmetrical lumbar and burning in hips. Although ,prior to injection did have radicular symptoms in legs. MRI showed stenosis. Aggravating factors standing < 2mins, walking thus needs rollator, unable lift and difficulty with bending. Alleviating rest. Denies paresthesia /tingling in legs but has neuropathy. Coughing/sneezing +.Bowel/bladder -. Patient affects sleeping. Patient pain affects QOL and function with ADL's and housework tasks. Patient goal is to stand long enough make dinner . Patient zero gravity recliner. Patient has had bilateral TKR, COPD and is on conts 02. SOCAIL: . VOCATION: RETIRED - Pain Bilateral Back Pain Intensity (Out of 10): 5 Pain Intensity Range: 10 - Objective POSTURE: mild forward posture. GAIT: slow braden mild forward posture with rollator and 2L02. NEURO: denies paresthesia/tingling ,reflexes L3-4,L4-5 ,L5 - S1 1/3. PALAPTION: tender L-S region. FLEXABLITY: hams min tight ,piriformis mod tight. LUMBAR ROM: flexion mod loss pain ,extension severe loss pain ,side glides mod loss - Special Tests L/S Slump test left side: Negative L/S Slump test right side: Negative L/S Left Straight Leg Raise: Negative L/S Right Straight Leg Raise: Negative L/S Left Femoral Nerve Tension: Negative L/S Right Femoral Nerve Tension: Negative Lumbar Standing: Flexion - Mechanical Response: No effect Lumbar Standing: Flexion - Symptoms During Testing: Increases Lumbar Standing: Flexion - Symptoms After Testing: No worse Lumbar Standing: Extension - Mechanical Response: No effect Lumbar Standing: Extension - Symptoms During Testing: Increases Lumbar Standing: Extension - Symptoms After Testing: No worse Lumbar Standing: Right Side Glides - Mechanical Response: No effect Lumbar Standing: Right Side [place] - Symptoms During Testing: No effect Lumbar Standing: Right Side [place] - Symptoms After Testing: No effect Lumbar Standing: Left Side [place] - Mechanical Response: No effect Lumbar Standing: Left Side [place] - Symptoms During Testing: No effect Lumbar Standing: Left Side [place] - Symptoms After Testing: No effect Comments:: Seated back flexion increases NW - Balance/Special Test Scores Oswestry Low Back Score: 33 - Goals Goal 1:: Patient to be I with HEP for back Goal Time Frame: 4-6 Weeks Goal 2:: Patient to improve posture for ADLS' 80% of the time Goal Time Frame: 4-6 Weeks Goal 3:: Patient to improve lumbar ROM for function of recovery to tie shoes Goal Time Frame: 4-6 Weeks Goal 4:: Patient to demonstrate 50% improvement with improved function with less pain Goal Time Frame: 4-6 Weeks Goal 5:: Patient to improve back oswestry score by 5 points to improve QOL Goal Time Frame: 4-6 Weeks - Rehabilitation Potential Physical Therapy Diagnosis: This patient has multiple comorbities along with pain lumbar worse with positioning especially standing walking affects ADL's and cooking and motion testing along with deconditioned and uses 02 and rollator for gait thus will benefit from skilled PT Rehabilitation Potential: Fair - Anticipated Interventions Patient/Client Instruction: Educate patient on: Condition, Plan of Care For the Purpose of:: To decrease pain, To increase ROM, To improve muscle performance and motor function, To increase tolerance to activity/condition/position, To improve performance and independence with ADL's, To improve ability of physical actions for home/community/work/leisure, To improve health of tissue, To decrease soft tissue restriction, To increase flexibility/ROM, To reduce risk of recurrence Therapeutic Exercise to Include: Strength training, Endurance training, Balance training, Body mechanics, Postural training, Flexibilty training, Dynamic Lumbar Stabilization Comment: BLE For the Purpose of:: To decrease pain, To increase ROM, To improve muscle performance and motor function, To increase tolerance to activity/condition/position, To improve performance and independence with ADL's, To improve ability of physical actions for home/community/work/leisure, To improve health of tissue, To decrease soft tissue restriction, To increase flexibility/ROM, To improve tolerance to ADL's TENS: Yes IF ES: Yes Cryotherapy (ice pack, ice massage): Yes Thermo therapy (hot pack): Yes Ultrasound (thermal/non thermal): Yes For the Purpose of:: To decrease pain, To increase ROM, To improve nutrient delivery to tissue, To increase oxygenation perfusion, To improve health of t issue, To decrease soft tissue restriction Thank you for the opportunity to evaluate your patient. For Medicare and Medicare HMO plans, please review the plan of care and approve it. It will need to be FAXED BACK to us at [phone] for Medicare purposes. For Medicare only, by signing this I certify the plan of care. Please let me know if there are questions or concerns regarding this plan of care. Physician Signature: Date:
--- NOTE | 2022-07-15 14:28 | HP.PTDCSUM ---
It has been my pleasure to treat MENA JENKINS referred by Dr. Estela Marie MD, with the diagnosis of BACK PAIN for a total of 6 visit(s). Discharge Date: 07/15/22 Please see the following information for a summary of their discharge status. Subjective: Back is worse today .walked without at [facility]raunt Bilateral Back Pain Intensity (Out of 10): 8 % Improvement: 20 Objective/Function: POSTURE: mild forward posture. GAIT: ambulautes with rollator 2 Lo2. NEURO: intact. MMT: 5/5 QUADS/HAMS ,HIP FLEXION 4/5. LUMBAR ROM: flexion mod loss ,extension severe loss Goal 1:: Patient to be I with HEP for back Goal Progress: Goal Met Goal 2:: Patient to improve posture for ADLS' 80% of the time Goal Progress: Progressing Goal 3:: Patient to improve lumbar ROM for function of recovery to tie shoes Goal Progress: Progressing Goal 4:: Patient to demonstrate 50% improvement with improved function with less pain Goal Progress: Progressing Goal 5:: Patient to improve back oswestry score by 5 points to improve QOL Goal Progress: Goal Met Plan: d/c Discharge Comments: hep If there are questions or concerns regarding this patient's physical therapy, please feel free to call me at [phone]. Thank you for the referral of this patient. Sincerely, Maikol Belcher PT, Cert MDT, OCS Balance/Gait/Functional tests - Balance/Special Test Scores Oswestry Low Back Score: 10
== END 2022-07-15 19:00 | disposition home or self-care (01) ==
LOC: PT 14:00
PROVIDERS: PCP Internal Medicine; Referring Provider Anesthesiology Pain Medicine; Visit Provider Anesthesiology Pain Medicine
DX: M54.9 Dorsalgia, unspecified (principal)
CPT/HCPCS: 97110; 97162; 97530

== ENCOUNTER → 2022-12-31 | Outpatient (CLI) | payer MEDICARE, OTHER, SELFPAY ==
[2022-12-31 14:34] LABS: Absolute Lymphocyte Count 2.17 X10^3/uL (0.83-4.51); Absolute Neutrophil Count 6.7 X10^3/uL (2.0-7.7); Basophil# 0.05 X10^3/uL; Basophil% 0.5 % (0-1); Eosinophil# 0.09 X10^3/uL; Eosinophils% 0.9 % (0-5); Lymphocyte # 2.17 X10^3/ul (0.83-4.51); Lymphocyte % 22.1 % (19-41); Mean Corp Hgb Conc 32.6 g/dL (32-36); Mean Corpuscular Volume 92.3 fL (81-99); Mean Platelet Vol. 10.5 fl (6.2-12.0); Monocyte# 0.83 X10^3/uL; Monocyte% 8.4 % (0-10); NRBC Flagged by Analyzer 0 % (0-5); Neutrophil # 6.65 X10^3/uL (2.7-7.7); Neutrophil % 67.6 % (47-70); Platelet Count 259 K/mm3 (150-450); RBC Distribution Width CV 12.8 % (11.6-14.6); RBC Distribution Width SD 43.2 fl (35.1-43.9); Red Blood Count 4.66 M/mm3 (4.2-5.4); White Blood Count 9.8 K/mm3 (4.4-11.0)
[2022-12-31 14:59] LABS: Microalbumin,Random Urine 13.5 mg/L (NO RANGE EST.); Microalbumin:Creatinine Ratio 16.9 mg/g CRE (<30 mg/g CRE)
[2022-12-31 15:00] LABS: ALB/GLOB Ratio 1.2 RATIO (0.9-2.4); AST(SGOT) 7 U/L (15-37); Alanine Aminotransfer ALT/SGPT 18 U/L (13-56); Albumin, Serum 3.5 g/dL (3.2-5.0); Alkaline Phosphatase 67 U/L (45-117); Anion Gap 5 (5-15); BUN 21 mg/dL (7-18); BUN/Creat Ratio 22.8 RATIO (10-20); Calcium,Total 8.4 mg/dL (8.5-10.1); Chloride 103 mmol/L (98-107); Cholesterol 138 mg/dL (200); Creatinine, Serum 0.92 mg/dL (0.55-1.02); EST Glomerular Filtration Rate 63 mL/min (>60); Est Glom Filt Rate - Afr Amer 77 mL/min (>60); Glucose 81 mg/dL (74-106); High Density Lipoprotein 57 mg/dL; Potassium 3.2 mmol/L (3.5-5.1); Protein, Total 6.5 g/dL (6.4-8.2); Sodium Level 140 mmol/L (136-145); Triglycerides 104 mg/dL; Very Low Density Lipoprotein 21 mg/dL (5-40)
== END | disposition home or self-care (01) ==
LOC: LAB 13:09
PROVIDERS: PCP Internal Medicine; Referring Provider Internal Medicine; Visit Provider Internal Medicine
DX: J44.9 Chronic obstructive pulmonary disease, unspecified (principal); E11.9 Type 2 diabetes mellitus without complications; Z79.4 Long term (current) use of insulin
CPT/HCPCS: 36415; 80053; 80061; 82043; 82570; 85025

== ENCOUNTER → 2023-02-01 | Outpatient (CLI) | payer MEDICARE, OTHER, SELFPAY ==
[2023-02-01 18:06] LABS: Amphetamine Urine VISTA NEGATIVE (<1000 ng/mL); Barbiturate Urine VISTA NEGATIVE (< 200 ng/mL); Benzodiazepine Urine VISTA NEGATIVE (< 200 ng/mL); Cocaine Urine VISTA NEGATIVE (< 300 ng/mL); Ecstacy Urine VISTA NEGATIVE (< 500 ng/mL); Methadone Urine VISTA NEGATIVE (< 300 ng/mL); PCP Urine VISTA NEGATIVE (< 25 ng/mL); THC Urine VISTA NEGATIVE (< 50 ng/mL); Vista UDS pH Range 4
== END | disposition home or self-care (01) ==
PROVIDERS: PCP Internal Medicine; Referring Provider Anesthesiology Pain Medicine; Visit Provider Anesthesiology Pain Medicine
DX: F11.20 Opioid dependence, uncomplicated (principal)
CPT/HCPCS: 80307

== ENCOUNTER → 2023-02-28 | Outpatient (CLI) | payer MEDICARE, OTHER, SELFPAY ==
--- NOTE | 2023-02-28 12:45 | RAD_ITS ---
INDICATION: COPD exacerbation EXAMINATION/TECHNIQUE: X-RAY - XR Chest 2 Views COMPARISON: Chest radiograph from March 20, 2022. FINDINGS: Support devices: None. Stable elevated left hemidiaphragm. Stable fibrotic changes and parenchymal scarring in the bilateral lung bases. Stable chronic blunting of the left costophrenic angle. No focal consolidations, effusions, or sizable pneumothorax. Cardiomediastinal silhouette is within normal limits. No acute findings in the bones or soft tissues. RAD/Chest PA and Lateral IMPRESSION: No acute cardiopulmonary process. Stable exam since March 20, 2022. Electronically Signed: Rivera Gallo MD at 13:04 EDT ,
== END | disposition home or self-care (01) ==
LOC: RAD 12:48
PROVIDERS: PCP Internal Medicine; Referring Provider Internal Medicine; Visit Provider Internal Medicine
DX: J44.1 Chronic obstructive pulmonary disease with (acute) exacerbation (principal)
CPT/HCPCS: 71046

== ENCOUNTER 2023-03-24 14:09 | Emergency (ER) | payer MEDICARE, OTHER, SELFPAY ==
[2023-03-24 14:10] VITALS: BP 115/46; PULSE 85; RESP 18; TEMP 35.2; O2SAT 97
--- NOTE | 2023-03-24 14:40 | EKG12_ITS ---
Test Reason : SOB Blood Pressure : / mmHG Vent. Rate : 080 BPM Atrial Rate : 080 BPM P-R Int : 158 ms QRS Dur : 120 ms QT Int : 414 ms P-R-T Axes : 007 005 014 degrees QTc Int : 477 ms Sinus rhythm with Premature atrial complexes Right bundle branch block Inferior infarct , age undetermined Abnormal ECG Confirmed by KYLE TAO, CHRISTY ([id number]), visual effects editor FRANCISCO ROJO ([id number]) on 03/28/2023 10:44:48 A M Referred By: Confirmed By:BRIONNA WRIGHT MD
[2023-03-24 14:53] VITALS: PULSE 78; RESP 16; O2SAT 97
[2023-03-24] MEDS: Ipratropium/Albuterol Sulfate 3 ML AMPUL.NEB INHALATION (14:53)
[2023-03-24] MEDS: Albuterol 2.5 MG/3 ML VIAL.NEB. INHALATION (14:53)
[2023-03-24 15:02] VITALS: BMI 38.4
[2023-03-24 15:15] LABS: Absolute Lymphocyte Count 0.84 X10^3/uL (0.83-4.51); Basophil# 0.05 X10^3/uL; Basophil% 0.5 % (0-1); Eosinophil# 0.09 X10^3/uL; Hematocrit 35.3 % (37-47); Hemoglobin 11.3 g/dL (12.0-15.0); Lymphocyte # 0.84 X10^3/ul (0.83-4.51); Mean Corpuscular Hgb 29.9 pg (27.0-32.0); Mean Corpuscular Volume 93.4 fL (81-99); Mean Platelet Vol. 10.3 fl (6.2-12.0); Monocyte# 1.34 X10^3/uL; Monocyte% 14.3 % (0-10); NRBC Flagged by Analyzer 0 % (0-5); Neutrophil # 6.97 X10^3/uL (2.7-7.7); Neutrophil % 74.6 % (47-70); Platelet Count 168 K/mm3 (150-450); RBC Distribution Width CV 12.5 % (11.6-14.6); Red Blood Count 3.78 M/mm3 (4.2-5.4); White Blood Count 9.4 K/mm3 (4.4-11.0)
--- NOTE | 2023-03-24 15:20 | RAD_ITS ---
STUDY: X-RAY CHEST REASON FOR EXAM: Female, 72 years old. Cough TECHNIQUE: PA and lateral views of the chest. COMPARISON: Comparison is made with prior study dated February 28, 2023. FINDINGS: EKG electrodes are seen. Stable elevation of the left diaphragm. Increased markings at the left lung base suggestive of early left basilar infiltrate. Blunting of the left costophrenic angle. Normal size heart. Normal mediastinum and geraldo. Normal visualized pulmonary arteries. Normal visualized aortic arch and descending thoracic aorta. Normal visualized thoracic spine. Normal visualized ribs, clavicles, and shoulders. There is no demonstrated abnormality of the visualized soft tissue structures of the upper abdomen. RAD/Chest PA and Lateral IMPRESSION: Increased markings at the left lung base with blunting of the left costophrenic angle. Follow-up is recommended. Electronically Signed: Eddie Galindo MD at 15:39 EDT ,
[2023-03-24 15:34] LABS: Anion Gap 8 (5-15); BUN 16 mg/dL (7-18); BUN/Creat Ratio 12.7 RATIO (10-20); Calcium,Total 8.4 mg/dL (8.5-10.1); Chloride 99 mmol/L (98-107); Creatinine, Serum 1.26 mg/dL (0.55-1.02); EST Glomerular Filtration Rate 44 mL/min (>60); Est Glom Filt Rate - Afr Amer 53 mL/min (>60); Estimated Creatinine Clearance 35.78 ml/min; Glucose 148 mg/dL (74-106); Potassium 3.6 mmol/L (3.5-5.1); Sodium Level 133 mmol/L (136-145); Troponin-I HS 4 pg/mL (3.0-54.0)
[2023-03-24 15:37] LABS: BNP,B-Type NATRIURETIC PEPTIDE 91.7 pg/mL (0-100)
[2023-03-24 16:03] VITALS: BP 95/58; PULSE 77; RESP 18; O2SAT 96
--- NOTE | 2023-03-24 16:11 | EX.ED.DYSGE1 ---
HPI <ELISEO Barragan - Last Filed: 03/24/23 19:24> History of Present Illness Chief Complaint: Shortness of Breath Narrative Narrative: Patient is a 72-year-old female with history of COPD, diabetes, A-fib currently not on blood thinners who presents to the emergency department for shortness of breath, increased cough over the last 2 weeks. Patient has been seen by his PCP, checks x-ray was unremarkable. Patient continued to feel weak, has worsening cough and is here for evaluation. Patient states today she got extremely sweaty and lightheaded while she was watching TV and this does not usually happen her. She denies any specific chest pain, jaw pain, radiation to the left arm. PFS <ELISEO Barragan - Last Filed: 03/24/23 19:24> [facility] Medical History Arthritis Atrial fibrillation Cardiology follow-up encounter Chronic cough Chronic low back pain Chronic respiratory failure with hypoxia, on home O2 therapy Class 2 obesity with body mass index (BMI) of 39.0 to 39.9 in adult COPD (chronic obstructive pulmonary disease) Cor pulmonale CPAP (continuous positive airway pressure) dependence Depression Easy bruising Essential hypertension Essential tremor Fibromyalgia Former smoker Gastric reflux H/O fibromyositis High cholesterol History of atrial fibrillation History of diverticulitis History of echocardiogram History of edema History of rheumatic fever History of steroid therapy History of stress test Hyperlipidemia Irregular heart beat Kidney failure Leg cramps Obesity SELENA (obstructive sleep apnea) Osteoarthritis Paroxysmal atrial fibrillation (07/2020) Restless legs syndrome (RLS) 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 Thoracic outlet syndrome TMJ (dislocation of temporomandibular joint) Type 2 diabetes mellitus with diabetic polyneuropathy Vitamin B 12 deficiency Vitamin D deficiency Walker as ambulation aid Wears glasses Home Medications baclofen 10 mg tablet 10 mg PO TID 03/20/22 [History Last Taken Unknown] ergocalciferol (vitamin D2) 1,250 mcg (50,000 unit) capsule (Vitamin D2) 1,250 mcg PO QWEEK 03/20/22 [History Last Taken Unknown] fluticasone propionate 50 mcg/actuation nasal spray,suspension 2 spray intranasal DAILY 03/20/22 [History Last Taken 05/19/22] lisinopril 5 mg tablet 5 mg PO DAILY 03/20/22 [History Last Taken 05/19/22] loratadine 10 mg capsule 10 mg PO DAILY 03/20/22 [History Last Taken Unknown] ropinirole 0.5 mg tablet 0.5 mg PO BID RLS 03/20/22 [History Last Taken Unknown] acetaminophen 500 mg tablet 1,000 mg PO Q6H 04/02/22 [History Last Taken Unknown] aspirin 81 mg tablet,delayed release (Adult Low Dose Aspirin) 81 mg PO DAILY 04/02/22 [History Last Taken 04/23/22] insulin aspart U-100 100 unit/mL subcutaneous solution (Novolog U-100 Insulin aspart) 10 unit subcut .SLIDING SCALE 04/02/22 [History Last Taken Unknown] insulin glargine 100 unit/mL subcutaneous cartridge 36 unit subcut QPM 04/02/22 [History Last Taken Unknown] atorvastatin 40 mg tablet (Lipitor) 40 mg PO DAILY #90 tabs 04/09/22 [Rx Last Taken 05/19/22] furosemide 20 mg tablet 40 mg PO BID 04/09/22 [History Last Taken Unknown] albuterol sulfate 90 mcg/actuation aerosol inhaler 2 puff inhalation Q6H PRN shortness of breath or wheezing #8.5 grams 04/20/22 [Rx Last Taken Unknown] montelukast 10 mg tablet 10 mg PO QHS #90 tabs 06/08/22 [Rx Last Taken Unknown] albuterol sulfate 2.5 mg/3 mL (0.083 %) solution for nebulization 2.5 mg continuous nebulization 09/16/22 [History Last Taken Unknown] fluticasone 250 mcg-salmeterol 50 mcg/dose blistr powdr for inhalation (Wixela Inhub) 1 inh inhalation 09/16/22 [History Last Taken Unknown] tramadol 50 mg tablet 50 mg PO 09/16/22 [History Last Taken Unknown] metoprolol succinate 50 mg tablet,extended release 24 hr (Toprol XL) 50 mg PO DAILY #90 tabs 12/24/22 [Rx Last Taken Unknown] duloxetine 20 mg capsule,delayed release cap PO 12/28/22 [History Last Taken Unknown] esomeprazole magnesium 40 mg capsule,delayed release 40 mg PO BID #180 caps 12/28/22 [Rx Last Taken Unknown] potassium chloride 20 mEq tablet,extended release(part/cryst) 20 meq PO DAILY #90 tabs 12/28/22 [Rx Last Taken Unknown] azelastine 137 mcg (0.1 %) nasal spray aerosol 1 spray intranasal 02/28/23 [History Last Taken Unknown] blood sugar diagnostic (Accu-Chek SmartView Test Strips) #100 ea 02/28/23 [Rx Last Taken Unknown] doxycycline monohydrate 100 mg tablet 100 mg PO BID #10 tabs 02/28/23 [Rx Last Taken Unknown] emollient (Vanicream topical) applic topical 02/28/23 [History Last Taken Unknown] prednisone 20 mg tablet 40 mg PO DAILY #10 tabs 02/28/23 [Rx Last Taken Unknown] sodium chloride-aloe vera nasal gel (Calvin Saline nasal gel) 1 applic topical HS PRN 02/28/23 [History Last Taken Unknown] levofloxacin 750 mg tablet 750 mg PO DAILY #6 tabs 03/24/23 [Rx Last Taken Unknown] prednisone 10 mg tablet 10 mg PO UD #33 tabs 03/24/23 [Rx Last Taken Unknown] Allergy/AdvReac Type Severity Reaction Status Date / Time house dust Allergy Nasal Verified 03/24/23 15:03 congestion and watery eyes meperidine [From Demerol] Allergy Itching Verified 03/24/23 15:03 mold Allergy nasal Verified 03/24/23 15:03 congestion and watery eyes Penicillins [PCN] Allergy Hives Verified 03/24/23 15:03 tree and shrub pollen Allergy Other Verified 03/24/23 15:03 Family History Mother COPD (chronic obstructive pulmonary disease) Colon cancer Father COPD (chronic obstructive pulmonary disease) Myocardial infarction Alcoholism Emphysema lung Sister Breast cancer Cancer Lung cancer Brother COPD (chronic obstructive pulmonary disease) Aunt Diabetes Surgical History H/O esophagogastroduodenoscopy H/O: hysterectomy History of bilateral cataract extraction History of cardiac catheterization History of colonoscopy (~01/2022) History of dilatation and curettage History of knee replacement History of radiofrequency ablation (RFA) of nerve of cervical spine History of thumb surgery History of tonsillectomy History of tracheostomy (~2013) History of umbilical hernia repair Hx of cataract surgery Social History household members: spouse current occupational status: retired 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 Positive generalized weakness Eyes: Negative for vision loss, vision change, double vision ENT: Negative for any sore throat, ear pain, congestion Cardiovascular: Negative for any chest pain, tightness, palpitations Respiratory: Negative for any hemoptysis, dyspnea, dyspnea on exertion, orthopnea. Positive for cough, dyspnea, sputum production Gastrointestinal: Negative for any abdominal pain, nausea, vomiting, diarrhea, constipation, blood in stool, blood in vomit : Negative for any urinary frequency, dysuria, retention, blood in urine Muscle skeletal: Negative for any muscle joint pain, stiffness, myalgias, arthralgias, neck pain, back pain Neurological: Negative for any headache, syncope, numbness or tingling, dizziness Skin: Negative for any rashes, lumps, itching, abrasions, lacerations. Positive for diaphoresis Psychiatric: Negative for any depression, anxiety, stress, suicidal ideation, homicidal ideation Hematologic: Negative for any easy bruising, excessive bruising, easy bleeding Allergies: Negative for any eczema, hives, rash EXAM <ELISEO Barragan - Last Filed: 03/24/23 19:24> Physical Exam Narrative Exam Narrative: Vital signs reviewed. Patient appears generally well, patient appears nontoxic. Patient skin was clammy. HEET: Head normocephalic atraumatic, TMs clear bilaterally. Posterior pharynx is clear, moist mucous membranes. Nares clear bilaterally. Neck: Supple with no lymphadenopathy or tenderness. No signs of meningismus, negative jolt sign. Cardiac: Regular rate and rhythm no murmurs gallops or rubs, equal peripheral pulses bilaterally. Respiratory: Patient did have some decrease breath sounds in the lower lobes, slight expiratory wheeze to the left lower lobe. No chest tenderness. Abdomen: Soft, nontender, nondistended. No abdominal bruit or pulsatile masses. No hepatosplenomegaly Extremities: No peripheral edema, no signs of gross trauma or deformity. Active full range of motion of all extremities. Neuro: Cranial nerves II through XII intact, no focal neurological deficits. Skin: Clean dry and intact with no rash, purpura, petechiae, vesicles or pustules. Backs/flank: No CVA tenderness, no midline spinal tenderness, no deformity. Psych: Normal mood and affect. No SI, HI or acute psychosis. Const Vital Signs: 03/24/23 14:10 03/24/23 14:53 03/24/23 14:53 Temperature 95.4 F L Temperature Source Temporal Pulse Rate 85 78 Respiratory Rate 18 16 Respiratory Effort Respiratory Depth Respiratory Pattern Blood Pressure 115/46 L Blood Pressure Mean 69 Pulse Ox 97 97 Oxygen Delivery Method Nasal Cannula Nasal Cannula Oxygen Flow Rate (L/min) 2.5 2 03/24/23 15:06 03/24/23 16:03 03/24/23 19:50 Temperature Temperature Source Pulse Rate 77 75 Respiratory Rate 18 Respiratory Effort Normal Non-Labored Respiratory Depth Normal Respiratory Pattern Normal Blood Pressure 95/58 L 119/87 H Blood Pressure Mean 70 Pulse Ox 96 96 Oxygen Delivery Method Room Air Oxygen Flow Rate (L/min) Positive well nourished and well developed General Appearance ED: well developed <Dr. Marquez Yu MD - Last Filed: 03/24/23 22:57> Physical Exam Const Vital Signs: 03/24/23 14:10 03/24/23 14:53 03/24/23 14:53 Temperature 95.4 F L Temperature Source Temporal Pulse Rate 85 78 Respiratory Rate 18 16 Respiratory Effort Respiratory Depth Respiratory Pattern Blood Pressure 115/46 L Blood Pressure Mean 69 Pulse Ox 97 97 Oxygen Delivery Method Nasal Cannula Nasal Cannula Oxygen Flow Rate (L/min) 2.5 2 03/24/23 15:06 03/24/23 16:03 03/24/23 19:50 Temperature Temperature Source Pulse Rate 77 75 Respiratory Rate 18 Respiratory Effort Normal Non-Labored Respiratory Depth Normal Respiratory Pattern Normal Blood Pressure 95/58 L 119/87 H Blood Pressure Mean 70 Pulse Ox 96 96 Oxygen Delivery Method Room Air Oxygen Flow Rate (L/min) MDM <ELISEO Barragan - Last Filed: 03/24/23 19:24> [facility] Lab Data Attestation: I reviewed the patient's lab results. Labs: Laboratory Results - last 24 hr 03/24/23 03/24/23 03/24/23 15:05 15:05 15:05 WBC 9.4 RBC 3.78 L Hgb 11.3 L Hct 35.3 L MCV 93.4 MCH 29.9 MCHC 32.0 RDW Std Deviation 43.0 RDW Coeff of Gil 12.5 Plt Count 168 MPV 10.3 Immature Gran % (Auto) 0.600 Neut % (Auto) 74.6 H Lymph % (Auto) 9.0 L [place] % (Auto) 14.3 H Eos % (Auto) 1.0 Baso % (Auto) 0.5 Absolute Neuts (auto) 7.0 Absolute Lymphs (auto) 0.84 Nucleated RBC % 0 D-Dimer Quant (PE/DVT) Sodium 133 L Potassium 3.6 Chloride 99 Carbon Dioxide 26.0 Anion Gap 8 BUN 16 Creatinine 1.26 H Estim Creat Clear Calc 35.78 Est GFR (MDRD) Af Amer 53 L Est GFR (MDRD) Non-Af 44 L BUN/Creatinine Ratio 12.7 Glucose 148 H Calcium 8.4 L Troponin I High Sens 4 B-Natriuretic Peptide 91.7 03/24/23 15:30 WBC RBC Hgb Hct MCV MCH MCHC RDW Std Deviation RDW Coeff of Gil Plt Count MPV Immature Gran % (Auto) Neut % (Auto) Lymph % (Auto) [place] % (Auto) Eos % (Auto) Baso % (Auto) Absolute Neuts (auto) Absolute Lymphs (auto) Nucleated RBC % D-Dimer Quant (PE/DVT) 1.47 H* Sodium Potassium Chloride Carbon Dioxide Anion Gap BUN Creatinine Estim Creat Clear Calc Est GFR (MDRD) Af Amer Est GFR (MDRD) Non-Af BUN/Creatinine Ratio Glucose Calcium Troponin I High Sens B-Natriuretic Peptide Radiography Diagnostic Testing: Clinical Impression(s) from Imaging Studies Chest X-Ray 03/24/23 15:20 IMPRESSION: Increased markings at the left lung base with blunting of the left costophrenic angle. Follow-up is recommended. Electronically Signed: Eddie Galindo MD at 15:39 EDT , Chest CTA 03/24/23 16:48 IMPRESSION: ASHD and findings which may be consistent with focal inflammatory disease in the superior segment of right lower lobe and right upper lobe. Subsegmental atelectasis in left lower lobe No evidence for pulmonary embolus Electronically Signed: Garth Rivera MD at 17:14 EDT , EKG EKG shows normal sinus rhythm: Attestation: I personally reviewed and interpreted this EKG as follows: Comments: EKG shows normal sinus rhythm with rate 84 bpm, VT interval 146 ms, QRS duration 82 ms, no acute ST elevation, no acute infarct noted. Treatment and Re-Evaluation :: All radiologic examinations were read, reviewed by the emergency department attending. From these reads, a plan of care will be put in place. Patient presents to the emergency department with complaints of cough, increased shortness of breath over the last 2 weeks. Patient is on 2 L of nasal cannula oxygen daily. Patient did receive a full cardiac work-up as well as work-up concerning for any pulmonary embolus. Patient's laboratory studies showed a CBC with slight anemia with a hemoglobin 11.3. Patient's D-dimer was elevated at 1.47, patient will need a CTA of the chest. Sodium is 133, creatinine is 1.26 which is slightly elevated, in December it was 0.92. Troponin was negative. BNP was negative. Patient was negative for any COVID or flu. Chest x-ray showed increased markings at the left lung base with blunting of the left costophrenic angle. Patient CTA of the chest showed findings could be consistent with a focal inflammatory disease in the superior segment of the right lower lobe and right upper lobe. Subsegmental atelectasis in the left lower lobe. No evidence of pulmonary embolus. At this time, patient will be diagnosed with mild near syncope. There is no evidence of any ACS or AK. Patient CT of the chest showed no pulmonary embolus. I am concerned for pneumonia especially right lobe. This could be why the patient is increasingly get fatigued with worsening cough. Patient also be placed on a prednisone taper dose secondary to COPD exacerbation. At this time, patient stable for discharge home, she instructed return for any worsening symptoms. <Dr. Marquez Yu MD - Last Filed: 03/24/23 22:57> [facility] History & Record Review Additional record(s) reviewed:: Prior outpatient record (Including echocardiogram) and Prior labs Lab Data Labs: Laboratory Results - last 24 hr 03/24/23 03/24/23 03/24/23 15:05 15:05 15:05 WBC 9.4 RBC 3.78 L Hgb 11.3 L Hct 35.3 L MCV 93.4 MCH 29.9 MCHC 32.0 RDW Std Deviation 43.0 RDW Coeff of Gil 12.5 Plt Count 168 MPV 10.3 Immature Gran % (Auto) 0.600 Neut % (Auto) 74.6 H Lymph % (Auto) 9.0 L [place] % (Auto) 14.3 H Eos % (Auto) 1.0 Baso % (Auto) 0.5 Absolute Neuts (auto) 7.0 Absolute Lymphs (auto) 0.84 Nucleated RBC % 0 D-Dimer Quant (PE/DVT) Sodium 133 L Potassium 3.6 Chloride 99 Carbon Dioxide 26.0 Anion Gap 8 BUN 16 Creatinine 1.26 H Estim Creat Clear Calc 35.78 Est GFR (MDRD) Af Amer 53 L Est GFR (MDRD) Non-Af 44 L BUN/Creatinine Ratio 12.7 Glucose 148 H Calcium 8.4 L Troponin I High Sens 4 B-Natriuretic Peptide 91.7 03/24/23 15:30 WBC RBC Hgb Hct MCV MCH MCHC RDW Std Deviation RDW Coeff of Gil Plt Count MPV Immature Gran % (Auto) Neut % (Auto) Lymph % (Auto) [place] % (Auto) Eos % (Auto) Baso % (Auto) Absolute Neuts (auto) Absolute Lymphs (auto) Nucleated RBC % D-Dimer Quant (PE/DVT) 1.47 H* Sodium Potassium Chloride Carbon Dioxide Anion Gap BUN Creatinine Estim Creat Clear Calc Est GFR (MDRD) Af Amer Est GFR (MDRD) Non-Af BUN/Creatinine Ratio Glucose Calcium Troponin I High Sens B-Natriuretic Peptide Radiography Diagnostic Testing: Clinical Impression(s) from Imaging Studies Chest X-Ray 03/24/23 15:20 IMPRESSION: Increased markings at the left lung base with blunting of the left costophrenic angle. Follow-up is recommended. Electronically Signed: Eddie Galindo MD at 15:39 EDT , Chest CTA 03/24/23 16:48 IMPRESSION: ASHD and findings which may be consistent with focal inflammatory disease in the superior segment of right lower lobe and right upper lobe. Subsegmental atelectasis in left lower lobe No evidence for pulmonary embolus Electronically Signed: Garth Rivera MD at 17:14 EDT , Treatment and Re-Evaluation Comments:: Seen and evaluated independently and in conjunction with nurse practitioner. Agree with notes above unless documented otherwise. Two possibly separate and/or related issues, patient apparently gradually having a COPD exacerbation over the last 2 weeks, and had an unexplained near syncopal episode where she was diaphoretic hypotensive with a heart rate around 80 today with simply sitting at home at rest. Exam: Heart regular no tachycardia, slight expiratory wheezes bilaterally but no respiratory distress, wet sounding cough, neurovascular intact distally all 4 extremities well-appearing in no distress. Will evaluate the patient for cardiac abnormalities, pulmonary embolus, pneumonia, and if negative, her echo showed no history of structural heart disease and she could probably follow-up as an outpatient. We will treat her as a COPD exacerbation as well and have her follow-up with pulmonary, she was scheduled for tomorrow but we will have her reschedule this for after the weekend as I will be more likely worthwhile. She is in agreement. Discharge Plan Triage Chief Complaint: Shortness of Breath ED Midlevel Provider: Surjit Mccrary ED Provider: Marquez Yu Dx/Rx/DC Orders Clinical Impression: Acute exacerbation of chronic obstructive pulmonary disease, Pneumonia, Near syncope Prescriptions: New levofloxacin 750 mg tablet 750 mg PO DAILY Qty: 6 0RF prednisone 10 mg tablet 10 mg PO UD Qty: 33 0RF Rx Instructions: Take 4 tablets daily for 3 days, then 3 daily for 3 days, then 2 daily for 3 days, then 1 a day for 3 days then 1 QOD for 3 doses. No Action furosemide 20 mg tablet 40 mg PO BID atorvastatin [Lipitor] 40 mg tablet 40 mg PO DAILY Qty: 90 4RF aspirin [Adult Low Dose Aspirin] 81 mg tablet,delayed release (DR/EC) 81 mg PO DAILY acetaminophen 500 mg tablet 1,000 mg PO Q6H albuterol sulfate 90 mcg/actuation HFA aerosol inhaler 2 puff inhalation Q6H PRN (Reason: shortness of breath or wheezing) Qty: 8.5 1RF fluticasone propion-salmeterol [Wixela Inhub] 250-50 mcg/dose blister with device 1 inh inhalation albuterol sulfate 2.5 mg /3 mL (0.083 %) solution for nebulization 2.5 mg continuous nebulization Label Comments: USE 1 VIAL IN NEBULIZER EVERY 4 HOURS NEEDED tramadol 50 mg tablet 50 mg PO duloxetine 20 mg capsule,delayed release(DR/EC) PO esomeprazole magnesium 40 mg capsule,delayed release(DR/EC) 40 mg PO BID Qty: 180 1RF potassium chloride 20 mEq tablet,ER particles/crystals 20 meq PO DAILY Qty: 90 1RF azelastine 137 mcg (0.1 %) aerosol,spray 1 spray intranasal emollient [Vanicream] Cream topical Calvin Saline Gel 1 applic topical HS PRN (DME) Accu-Chek SmartView Test Strip Strip See Rx Instructions .Route Qty: 100 1RF Rx Instructions: use three times daily to monitor blood glucose for type 2 DM prednisone 20 mg tablet 40 mg PO DAILY Qty: 10 0RF doxycycline monohydrate 100 mg tablet 100 mg PO BID Qty: 10 0RF baclofen 10 mg Tablet 10 mg PO TID ropinirole 0.5 mg tablet 0.5 mg PO BID Label Comments: TAKE 1 TAB BY MOUTH DAILY 1-3 HRS BEFORE BEDTIME lisinopril 5 mg Tablet 5 mg PO DAILY ergocalciferol (vitamin D2) [Vitamin D2] 1,250 mcg (50,000 unit) Capsule 1,250 mcg PO QWEEK Rx Instructions: tuesday fluticasone propionate 50 mcg/actuation Reynolds,Suspension 2 spray INTRANASAL DAILY loratadine 10 mg Capsule 10 mg PO DAILY insulin glargine 100 unit/mL cartridge 36 unit SUBCUT QPM insulin aspart U-100 [Novolog U-100 Insulin aspart] 100 unit/mL solution 10 unit SUBCUT .SLIDING SCALE Rx Instructions: sliding scale montelukast 10 mg tablet 10 mg PO QHS Qty: 90 0RF metoprolol succinate [Toprol XL] 50 mg tablet extended release 24 hr 50 mg PO DAILY Qty: 90 3RF Primary Care Provider: Aixa Magdaleno Referrals: Aixa Magdaleno MD [Primary Care Provider] - Activity Restrictions/Additional Instructions: Take antibiotics as prescribed. Follow-up outpatient return for any worsening symptoms Disposition Disposition: Home, Self Care Discharge Date/Time: 03/24/23 19:51
[2023-03-24 16:20] LABS: D-Dimer Quantitative (DVT/PE) 1.47 FEU/ug/m (0.27-0.49)
--- NOTE | 2023-03-24 16:48 | CT_ITS ---
STUDY: CTA CHEST REASON FOR EXAM: Female, 72 years old. Shortness of breath RADIATION DOSAGE (If Supplied By Facility): CTDIvol = ( 14.93 ) mGy, DLP = ( 530.76 ) mGycm TECHNIQUE: The examination was performed with the intravenous administration of IV 100mL Isovue-370. Post-processing of the angiographic images was performed, with multiplanar reformation and 3D reconstruction. Individualized dose optimization techniques were used for this CT. COMPARISON: None. FINDINGS: Normal enhancement of the main pulmonary artery and right and left pulmonary arteries. Normal enhancement of the bilateral peripheral pulmonary arteries. There is no demonstrated pulmonary embolism. Minor atherosclerotic changes of the aorta without evidence for aneurysm There is no demonstrated aortic dissection. Heart size is normal. Mild multifocal coronary artery calcification. Normal mediastinum. Tiny right right hilar nodes. Normal visualized trachea and bronchi. The lungs are well expanded. Subsegmental atelectasis in left lower lobe in association with elevated left hemidiaphragm.. Reticulonodular interstitial thickening in the superior segment of right lower lobe and posterior segment of the right upper lobe possibly inflammatory. Tiny calcified granuloma in right upper lobe. Normal pleura. Normal chest wall structures. Dorsal spine demonstrates degenerative changes Normal visualized upper abdomen. CT/CTA Chest W/WO Contrast IMPRESSION: ASHD and findings which may be consistent with focal inflammatory disease in the superior segment of right lower lobe and right upper lobe. Subsegmental atelectasis in left lower lobe No evidence for pulmonary embolus Electronically Signed: Garth Rivera MD at 17:14 EDT ,
[2023-03-24] MEDS: levoFLOXacin 750 MG Tablet PO (19:38)
[2023-03-24 19:50] VITALS: BP 119/87; PULSE 75; O2SAT 96
== END 2023-03-24 19:51 | disposition home or self-care (01) ==
PROVIDERS: Nurse Practitioner; Emergency Provider Emergency Medicine; PCP Internal Medicine; Visit Provider Emergency Medicine
DX: J44.1 Chronic obstructive pulmonary disease with (acute) exacerbation (principal); E11.42 Type 2 diabetes mellitus with diabetic polyneuropathy; I48.91 Unspecified atrial fibrillation; J18.9 Pneumonia, unspecified organism; Z99.81 Dependence on supplemental oxygen; R55 Syncope and collapse; E78.00 Pure hypercholesterolemia, unspecified; I10 Essential (primary) hypertension; Z87.891 Personal history of nicotine dependence; Z79.52 Long term (current) use of systemic steroids
CPT/HCPCS: 71046; 71275; 80048; 83880; 84484; 85025; 85379; 87428; 93005; 94640; 96360; 99285; J7030; Q9967

== ENCOUNTER → 2023-04-27 | Outpatient (CLI) | payer MEDICARE, OTHER, SELFPAY ==
--- NOTE | 2023-04-27 14:00 | RAD_ITS ---
STUDY: X-RAY - CERVICAL SPINE REASON FOR EXAM: Female, 72 years old. NECK PAIN TECHNIQUE: 3 view(s) of the cervical spine were obtained. COMPARISON: None FINDINGS: Normal anterior atlantoaxial articulation. Normal odontoid process. Normal cervical lordosis. No evidence for acute fracture or subluxation.. No lytic or sclerotic bony lesions noted. Multilevel disc space narrowing and endplate spurring. The soft tissue structures are unremarkable. RAD/Cerv Spine 2 or 3 Views IMPRESSION: Moderate to severe osteoarthritic changes. . Electronically Signed: Garth Rivera MD at 22:45 EDT ,
--- NOTE | 2023-04-27 14:05 | RAD_ITS ---
STUDY: X-RAY - LEFT SHOULDER REASON FOR EXAM: Female, 72 years old. BILATERAL SHOULDER PAIN TECHNIQUE: 3 view(s) of the shoulder. COMPARISON: None. FINDINGS: Narrowed glenohumeral articulation. Normal acromioclavicular joint. Normal acromion. Normal humeral head and visualized proximal humerus. The soft tissue structures are unremarkable. Normal visualized pulmonary apex. RAD/Shoulder min 2 Views IMPRESSION: Degenerative change. No acute fracture or other significant bony pathology. Electronically Signed: Garth Rivera MD at 22:43 EDT ,
--- NOTE | 2023-04-27 14:06 | RAD_ITS ---
STUDY: X-RAY - RIGHT SHOULDER REASON FOR EXAM: Female, 72 years old. BILATERAL SHOULDER PAIN TECHNIQUE: 3 view(s) of the shoulder. COMPARISON: None. FINDINGS: Narrowed glenohumeral articulation. Normal acromioclavicular joint. Normal acromion. Normal humeral head and visualized proximal humerus. The soft tissue structures are unremarkable. Normal visualized pulmonary apex. RAD/Shoulder min 2 Views IMPRESSION: Degenerative changes. No acute fracture or other significant bony pathology. Electronically Signed: Garth Rivera MD at 22:44 EDT ,
== END | disposition home or self-care (01) ==
LOC: RAD 13:59
PROVIDERS: PCP Internal Medicine; Referring Provider Anesthesiology Pain Medicine; Visit Provider Anesthesiology Pain Medicine
DX: M54.12 Radiculopathy, cervical region (principal); M54.2 Cervicalgia
CPT/HCPCS: 72040; 73030

== ENCOUNTER → 2023-06-30 | Outpatient (CLI) | payer MEDICARE, OTHER, SELFPAY ==
[2023-06-30 12:20] LABS: Absolute Lymphocyte Count 1.36 X10^3/uL (0.83-4.51); Absolute Neutrophil Count 4.3 X10^3/uL (2.0-7.7); Basophil# 0.04 X10^3/uL; Basophil% 0.6 % (0-1); Eosinophil# 0.17 X10^3/uL; Eosinophils% 2.6 % (0-5); Hemoglobin 12.4 g/dL (12.0-15.0); Lymphocyte # 1.36 X10^3/ul (0.83-4.51); Lymphocyte % 20.6 % (19-41); Mean Corp Hgb Conc 31.8 g/dL (32-36); Mean Corpuscular Hgb 29.5 pg (27.0-32.0); Mean Corpuscular Volume 92.6 fL (81-99); Mean Platelet Vol. 10.7 fl (6.2-12.0); Monocyte# 0.67 X10^3/uL; Monocyte% 10.1 % (0-10); NRBC Flagged by Analyzer 0 % (0-5); Neutrophil # 4.34 X10^3/uL (2.7-7.7); Neutrophil % 65.6 % (47-70); Platelet Count 220 K/mm3 (150-450); RBC Distribution Width CV 13.2 % (11.6-14.6); RBC Distribution Width SD 45.1 fl (35.1-43.9); Red Blood Count 4.21 M/mm3 (4.2-5.4); White Blood Count 6.6 K/mm3 (4.4-11.0)
[2023-06-30 12:37] LABS: Vitamin D,25 Hydroxy 87.4 ng/mL
[2023-06-30 12:41] LABS: Anion Gap 2 (5-15); BUN 15 mg/dL (7-18); BUN/Creat Ratio 16.4 RATIO (10-20); Calcium,Total 8.8 mg/dL (8.5-10.1); Chloride 107 mmol/L (98-107); Creatinine, Serum 0.91 mg/dL (0.55-1.02); EST Glomerular Filtration Rate 64 mL/min (>60); Est Glom Filt Rate - Afr Amer 77 mL/min (>60); Glucose 116 mg/dL (74-106); Potassium 4.7 mmol/L (3.5-5.1); Sodium Level 141 mmol/L (136-145)
== END | disposition home or self-care (01) ==
LOC: BIMLAB 10:45
PROVIDERS: PCP Internal Medicine; Referring Provider Internal Medicine; Visit Provider Internal Medicine
DX: E11.9 Type 2 diabetes mellitus without complications (principal); J44.9 Chronic obstructive pulmonary disease, unspecified; E55.9 Vitamin D deficiency, unspecified
CPT/HCPCS: 36415; 80048; 82306; 85025

== ENCOUNTER → 2024-01-05 | Outpatient (CLI) | payer MEDICARE, SELFPAY ==
[2024-01-05 14:25] LABS: Absolute Neutrophil Count 5.7 X10^3/uL (2.0-7.7); Basophil# 0.05 X10^3/uL; Basophil% 0.6 % (0-1); Eosinophils% 1.1 % (0-5); Hematocrit 39.2 % (37-47); Hemoglobin 12.5 g/dL (12.0-15.0); Lymphocyte % 24.1 % (19-41); Mean Corp Hgb Conc 31.9 g/dL (32-36); Mean Corpuscular Hgb 29.5 pg (27.0-32.0); Mean Corpuscular Volume 92.5 fL (81-99); Mean Platelet Vol. 9.6 fl (6.2-12.0); Monocyte# 0.76 X10^3/uL; Monocyte% 8.7 % (0-10); NRBC Flagged by Analyzer 0 % (0-5); Neutrophil # 5.66 X10^3/uL (2.7-7.7); Platelet Count 229 K/mm3 (150-450); RBC Distribution Width CV 12.9 % (11.6-14.6); RBC Distribution Width SD 43.7 fl (35.1-43.9); Red Blood Count 4.24 M/mm3 (4.2-5.4); White Blood Count 8.7 K/mm3 (4.4-11.0)
[2024-01-05 14:49] LABS: ALB/GLOB Ratio 1.1 RATIO (0.9-2.4); AST(SGOT) 14 U/L (15-37); Alanine Aminotransfer ALT/SGPT 21 U/L (13-56); Albumin, Serum 3.4 g/dL (3.2-5.0); Alkaline Phosphatase 72 U/L (45-117); Anion Gap 3 (5-15); BUN 20 mg/dL (7-18); BUN/Creat Ratio 20.2 RATIO (10-20); Calcium,Total 8.6 mg/dL (8.5-10.1); Chloride 106 mmol/L (98-107); Cholesterol 155 mg/dL (200); Creatinine, Serum 0.99 mg/dL (0.55-1.02); EST Glomerular Filtration Rate 58 mL/min (>60); Est Glom Filt Rate - Afr Amer 70 mL/min (>60); Glucose 82 mg/dL (74-106); High Density Lipoprotein 62 mg/dL; Potassium 3.7 mmol/L (3.5-5.1); Protein, Total 6.4 g/dL (6.4-8.2); Sodium Level 141 mmol/L (136-145); Triglycerides 61 mg/dL; Very Low Density Lipoprotein 12 mg/dL (5-40)
[2024-01-05 14:54] LABS: Amphetamine Urine VISTA NEGATIVE (<1000 ng/mL); Barbiturate Urine VISTA NEGATIVE (< 200 ng/mL); Benzodiazepine Urine VISTA NEGATIVE (< 200 ng/mL); Cocaine Urine VISTA NEGATIVE (< 300 ng/mL); Ecstacy Urine VISTA NEGATIVE (< 500 ng/mL); Methadone Urine VISTA NEGATIVE (< 300 ng/mL); PCP Urine VISTA NEGATIVE (< 25 ng/mL); THC Urine VISTA NEGATIVE (< 50 ng/mL); Vista UDS pH Range 6
[2024-01-05 15:57] LABS: Microalbumin,Random Urine 27.2 mg/L (NO RANGE EST.); Microalbumin:Creatinine Ratio 70.5 mg/g CRE (<30 mg/g CRE)
== END | disposition home or self-care (01) ==
LOC: LAB 13:52
PROVIDERS: PCP Internal Medicine; Referring Provider Anesthesiology Pain Medicine; Visit Provider Anesthesiology Pain Medicine
DX: F11.20 Opioid dependence, uncomplicated (principal); E11.9 Type 2 diabetes mellitus without complications
CPT/HCPCS: 80053; 80061; 80307; 82043; 82570; 85025

== ENCOUNTER → 2024-01-20 | Outpatient (CLI) | payer MEDICARE, SELFPAY ==
--- NOTE | 2024-01-20 10:00 | BI_ITS ---
MAMMOGRAPHY - BILATERAL SCREENING REASON FOR EXAM: Female, 73 years old. Routine annual screening examination. PERTINENT HISTORY: Sister with breast cancer. TECHNIQUE: Digital bilateral breast mary jo (3D mammographic acquisition) in the CC and MLO projections. 2-D mediolateral oblique (MLO) and craniocaudad (CC) views of both breasts were obtained. CAD: Full Field Digital Mammography with Computer Added Detection was performed. COMPARISON: Comparison is made with prior outside examination dated November 18, 2021. FINDINGS: Breast Composition: The breasts are almost entirely fatty. There are no dominant masses or suspicious calcifications. No other significant abnormalities are identified. There has been no significant change since the prior study. BI/SCRN MAMM (CAD)W/MARY JO BILAT IMPRESSION: Stable bilateral screening mammogram. Yearly follow-up mammogram recommended. (A) ASSESSMENT CATEGORY: BIRADS Category 1: Negative. A letter regarding these results will be sent to the patient by the facility within 30 days. Approximately 10% of breast cancers are not detected by mammography. A normal mammogram should not delay biopsy of a clinically suspicious abnormality. [id number] Electronically Signed: Eddie Galindo MD at 13:33 EDT ,
== END | disposition home or self-care (01) ==
PROVIDERS: PCP Internal Medicine; Referring Provider Internal Medicine; Visit Provider Internal Medicine
DX: Z12.31 Encounter for screening mammogram for malignant neoplasm of breast (principal)
CPT/HCPCS: 77063; 77067

== ENCOUNTER → 2024-03-13 | Outpatient (CLI) | payer MEDICARE, SELFPAY | END | disposition home or self-care (01) | PROVIDERS: PCP Internal Medicine; Referring Provider Anesthesiology Pain Medicine; Visit Provider Anesthesiology Pain Medicine | DX: F11.20 Opioid dependence, uncomplicated (principal) ==

== ENCOUNTER → 2024-07-06 | Outpatient (CLI) | payer MEDICARE, SELFPAY ==
[2024-07-06 15:15] LABS: Absolute Lymphocyte Count 1.24 X10^3/uL (0.83-4.51); Basophil# 0.06 X10^3/uL; Basophil% 0.8 % (0-1); Eosinophil# 0.17 X10^3/uL; Eosinophils% 2.4 % (0-5); Hemoglobin 13.7 g/dL (12.0-15.0); Lymphocyte # 1.24 X10^3/ul (0.83-4.51); Lymphocyte % 17.3 % (19-41); Mean Corp Hgb Conc 31.9 g/dL (32-36); Mean Corpuscular Hgb 29.4 pg (27.0-32.0); Mean Corpuscular Volume 92.3 fL (81-99); Mean Platelet Vol. 11.1 fl (6.2-12.0); Monocyte# 0.64 X10^3/uL; Monocyte% 8.9 % (0-10); NRBC Flagged by Analyzer 0 % (0-5); Neutrophil # 5.03 X10^3/uL (2.7-7.7); Neutrophil % 70.2 % (47-70); Platelet Count 230 K/mm3 (150-450); RBC Distribution Width CV 13.1 % (11.6-14.6); RBC Distribution Width SD 44.4 fl (35.1-43.9); Red Blood Count 4.66 M/mm3 (4.2-5.4); White Blood Count 7.2 K/mm3 (4.4-11.0)
[2024-07-06 15:54] LABS: Hemoglobin A1c 6.4 % (3.8-5.6)
[2024-07-06 16:02] LABS: ALB/GLOB Ratio 1.2 RATIO (0.9-2.4); AST(SGOT) 13 U/L (15-37); Alanine Aminotransfer ALT/SGPT 21 U/L (13-56); Albumin, Serum 3.7 g/dL (3.2-5.0); Alkaline Phosphatase 85 U/L (45-117); Anion Gap 5 (5-15); BUN 19 mg/dL (7-18); BUN/Creat Ratio 18.4 RATIO (10-20); Calcium,Total 9.1 mg/dL (8.5-10.1); Chloride 105 mmol/L (98-107); Cholesterol 178 mg/dL (200); Creatinine, Serum 1.03 mg/dL (0.55-1.02); EST Glomerular Filtration Rate 56 mL/min (>60); Est Glom Filt Rate - Afr Amer 67 mL/min (>60); Globulin 3.1 g/dL (2.2-4.2); Glucose 114 mg/dL (74-106); High Density Lipoprotein 63 mg/dL; Potassium 4.6 mmol/L (3.5-5.1); Protein, Total 6.8 g/dL (6.4-8.2); Sodium Level 140 mmol/L (136-145); Triglycerides 114 mg/dL; Very Low Density Lipoprotein 23 mg/dL (5-40)
== END | disposition home or self-care (01) ==
LOC: BIMLAB 11:34
PROVIDERS: PCP Internal Medicine; Referring Provider Physician Assistant; Visit Provider Physician Assistant
DX: I10 Essential (primary) hypertension (principal); E11.9 Type 2 diabetes mellitus without complications; E78.5 Hyperlipidemia, unspecified
CPT/HCPCS: 36415; 80053; 80061; 83036; 84443; 85025

== ENCOUNTER 2025-01-01 17:25 | Inpatient (IN) | payer MEDICARE, SELFPAY ==
[2025-01-01] VITALS (12 sets, daily range): BP systolic 97–148; BP diastolic 53–76; PULSE 74–97; RESP 12–28; TEMP 36.6–36.9; O2SAT 95–98; BMI 37.5; BMI 39.2
--- NOTE | 2025-01-01 17:42 | EKG12_ITS ---
Test Reason : COLD SX Blood Pressure : */* mmHG Vent. Rate : 75 BPM Atrial Rate : * BPM P-R Int : * ms QRS Dur : 118 ms QT Int : 402 ms P-R-T Axes : * 0 14 degrees QTcB Int : 448 ms Normal sinus rhythm Low voltage QRS Incomplete right bundle branch block Abnormal ECG Confirmed by CHINMAY TAO, ISIS ([id number]), field map editor JILLIAN BERRY ([id number]) on 01/02/2025 8:31:09 AM Referred By: Confirmed By: ISIS MOY MD
--- NOTE | 2025-01-01 17:55 | RAD_ITS ---
EXAM: Chest x-ray CLINICAL HISTORY: Cough, shortness of breath. COMPARISON: Chest x-ray dated 03/24/2023. TECHNIQUE: PA and lateral views of the chest. FINDINGS: Stable appearance of the left diaphragm which appears elevated. Streaky changes at the left lung base which were present dating back to 2022. No definite new infiltrate is seen throughout the lungs. The right lung remains clear. No acute osseous abnormality is seen. Degenerative changes seen within the spine. RAD/Chest PA and Lateral IMPRESSION: Stable left diaphragmatic elevation. Pulmonary findings are grossly unchanged when compared to prior examination dating back to 03/24/2023. Reading Location: [id number]
[2025-01-01] MEDS: 0.9% Normal Saline (1000mL) 1,000 ML 999 ML IV ×2 (17:57→21:40)
[2025-01-01 18:06] LABS: Absolute Lymphocyte Count 0.49 X10^3/uL (0.83-4.51); Absolute Neutrophil Count 5.1 X10^3/uL (2.0-7.7); Basophil# 0.04 X10^3/uL; Basophil% 0.6 % (0-1); Eosinophil# 0.01 X10^3/uL; Eosinophils% 0.1 % (0-5); Hematocrit 38.6 % (37-47); Hemoglobin 12.6 g/dL (12.0-15.0); Lymphocyte # 0.49 X10^3/ul (0.83-4.51); Lymphocyte % 7.2 % (19-41); Mean Corp Hgb Conc 32.6 g/dL (32-36); Mean Corpuscular Hgb 30.1 pg (27.0-32.0); Mean Corpuscular Volume 92.1 fL (81-99); Mean Platelet Vol. 10.3 fl (6.2-12.0); Monocyte# 1.17 X10^3/uL; Monocyte% 17.1 % (0-10); NRBC Flagged by Analyzer 0 % (0-5); Neutrophil % 74.6 % (47-70); POSITIVE DIFFERENTIAL YES; Platelet Count 175 K/mm3 (150-450); RBC Distribution Width CV 13.4 % (11.6-14.6); RBC Distribution Width SD 45.6 fl (35.1-43.9); Red Blood Count 4.19 M/mm3 (4.2-5.4); White Blood Count 6.8 K/mm3 (4.4-11.0)
[2025-01-01] MEDS: Acetaminophen 500 MG Tablet 1000 MG PO (18:16)
[2025-01-01] MEDS: predniSONE 20 MG Tablet 60 MG PO (18:16)
[2025-01-01] MEDS: Ipratropium/Albuterol Sulfate 3 ML AMPUL.NEB INHALATION ×3 (18:18)
[2025-01-01 19:23] LABS: International Normalized Ratio 1.2; Prothrombin Time (Protime)PT. 15.1 SECONDS (11.7-14.9)
[2025-01-01 19:24] LABS: Partial Thromboplast Time 30.4 Seconds (24.1-36.2)
--- NOTE | 2025-01-01 19:50 | CPS ---
[1818] 9ml Duoneb given to pt. in ER
[2025-01-01 20:19] LABS: Lactic Acid 1.1 mmol/L (0.0-2.0)
[2025-01-01 20:23] LABS: Anion Gap 13 (5-15); BUN 13 mg/dL (4-19); BUN/Creat Ratio 12.4 RATIO (10-20); Calcium,Total 8.7 mg/dL (7.6-11.0); Carbon Dioxide 22.5 mmol/L (21.0-32.0); Chloride 103 mmol/L (98-108); Creatinine, Serum 1.05 mg/dL (0.70-1.20); EST Glomerular Filtration Rate 55 (>60); Estimated Creatinine Clearance 54.87 ml/min (50-250); Glucose 92 mg/dL (70-99); Potassium 3.8 mmol/L (3.3-5.1); Pro- Brain NATRIURETIC PEPTIDE 732 pg/mL (<=1800); Sodium Level 138 mmol/L (133-145); Troponin T High Sensitivity 19 ng/L (<=14)
--- NOTE | 2025-01-01 20:29 | EX.ED.DYSGE1 ---
HPI History of Present Illness Chief Complaint: Cold Sx Narrative Narrative: Patient is a 74-year-old female with past medical history of GERD, diabetes, hypertension, SELENA, COPD on 2 L nasal cannula chronically who presents to the emergency department with a chief complaint of cough, generalized bodyaches, generalized weakness and not feeling well. Patient states that around Tuesday she started to feel ill and states that chronically got worse prompting her to come here for further evaluation management. Patient states that she was around some family members are ill recently as well. 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 Obesity Chronic respiratory failure with hypoxia, on home O2 therapy History of rheumatic fever Hyperlipidemia SELENA (obstructive sleep apnea) Osteoarthritis Paroxysmal atrial fibrillation (07/2020) Restless legs syndrome (RLS) H/O fibromyositis Fibromyalgia Essential tremor Depression Chronic low back pain Essential hypertension Class 2 obesity with body mass index (BMI) of 39.0 to 39.9 in adult Type 2 diabetes mellitus with diabetic polyneuropathy Vitamin D deficiency Vitamin B 12 deficiency Cor pulmonale Atrial fibrillation Irregular heart beat COPD (chronic obstructive pulmonary disease) Home Medications ?Medication ?Instructions ?Recorded ?Last Taken ?Type fluticasone propionate 50 2 spray intranasal DAILY 03/20/22 05/19/22 History mcg/actuation nasal spray,suspension loratadine 10 mg capsule 10 mg PO DAILY 03/20/22 Unknown History aspirin 81 mg tablet,delayed 81 mg PO DAILY 04/02/22 04/23/22 History release (Adult Low Dose Aspirin) albuterol sulfate 90 mcg/actuation 2 puff inhalation Q6H PRN 04/20/22 Unknown Rx aerosol inhaler shortness of breath or wheezing #8.5 grams albuterol sulfate 2.5 mg/3 mL 2.5 mg continuous nebulization 09/16/22 Unknown History (0.083 %) solution for nebulization emollient (Vanicream topical) applic topical 02/28/23 Unknown History sodium chloride-aloe vera nasal 1 applic topical HS PRN 02/28/23 Unknown History gel (Levant Saline nasal gel) fluticasone fur. 200 mcg-umeclid 1 inh inhalation DAILY 04/11/23 Unknown History 62.5 mcg-vilant 25 mcg inhalat.powder (Trelegy Ellipta) insulin glargine 100 unit/mL 32 unit subcut QPM 11/08/23 Unknown History subcutaneous cartridge blood sugar diagnostic (Accu-Chek #300 ea 01/02/24 Unknown Rx SmartView Test Strips) blood-glucose meter (OneTouch #1 ea 03/19/24 Unknown Rx Verio Flex Meter) azelastine 137 mcg (0.1 %) nasal 1 spray intranasal BID PRN 04/04/24 Unknown Rx spray congestion #30 mL atorvastatin 40 mg tablet (Lipitor) 40 mg PO DAILY #90 tabs 05/02/24 Unknown Rx baclofen 10 mg tablet 10 mg PO TID PRN 05/02/24 Unknown History naproxen sodium 220 mg capsule 220 mg PO Q12H PRN 05/02/24 Unknown History (Aleve) duloxetine 40 mg capsule,delayed 40 mg PO DAILY #90 caps 09/05/24 Unknown Rx release blood sugar diagnostic (OneTouch #100 ea 10/23/24 Unknown Rx Verio test strips) esomeprazole magnesium 40 mg 40 mg PO BID #180 caps 10/23/24 Unknown Rx capsule,delayed release insulin glargine 100 unit/mL (3 32 unit (0.32 mL) subcut QPM #15 mL 10/23/24 Unknown Rx mL) subcutaneous pen lisinopril 5 mg tablet 5 mg PO DAILY #90 tabs 10/23/24 Unknown Rx metoprolol succinate 50 mg 50 mg PO DAILY #90 tabs 10/23/24 Unknown Rx tablet,extended release 24 hr (Toprol XL) montelukast 10 mg tablet 10 mg PO QHS #90 tabs 10/23/24 Unknown Rx potassium chloride 20 mEq 20 meq PO DAILY #90 TABLETS 10/23/24 Unknown Rx tablet,extended release(part/cryst) (Klor-Con M) furosemide 20 mg tablet 40 mg (2 x 20 mg) PO BID #180 tabs 12/20/24 Unknown Rx insulin syringe-needle U-100 0.3 #50 ea 12/20/24 Unknown Rx mL 31 gauge x 5/16 (BD Insulin Syringe Ultra-Fine) Allergy/AdvReac Type Severity Reaction Status Date / Time cat dander Allergy Severe Inflammation Verified 01/01/25 17:28 of lung house dust Allergy Nasal Verified 01/01/25 17:28 congestion and watery eyes meperidine (From Demerol) Allergy Itching Verified 01/01/25 17:28 mold Allergy nasal Verified 01/01/25 17:28 congestion and watery eyes Penicillins (PCN) Allergy Hives Verified 01/01/25 17:28 tree and shrub pollen Allergy Other Verified 01/01/25 17:28 Family History Mother COPD (chronic obstructive pulmonary disease) Colon cancer Father COPD (chronic obstructive pulmonary disease) Myocardial infarction Alcoholism Emphysema lung Sister Breast cancer Cancer Lung cancer Brother COPD (chronic obstructive pulmonary disease) Aunt Diabetes Surgical History Hx of cataract surgery History of bilateral cataract extraction H/O esophagogastroduodenoscopy History of cardiac catheterization History of thumb surgery History of tracheostomy (~2013) History of radiofrequency ablation (RFA) of nerve of cervical spine History of knee replacement History of colonoscopy (~01/2022) History of dilatation and curettage History of tonsillectomy History of umbilical hernia repair H/O: hysterectomy Social History household members: spouse current occupational status: retired 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 Smoking Status: Former smoker quit date: 02/08/80 Tobacco: How many years used: 20 Electronic Cigarette Use: not used alcohol intake: never substance use type: does not use caffeine: Yes do you feel safe at home: Yes ROS ROS ED ROS Narrative Constitutional: Complains of chills diffuse bodyaches, not feeling well overall Eyes: Denies change in vision double vision blurry vision Cardiovascular: Denies chest pain or palpitations Respiratory: Complains of cough as noted above with increased sputum production Abdomen: Denies nausea vomit diarrhea : Denies urinary symptoms Neurological: Denies numbness, weakness, tingling Musculoskeletal: Denies back pain Skin: Denies rashes or lesions EXAM Physical Exam Narrative Exam Narrative: General: Patient lying in bed rest comfortably not appear to be in acute distress Head: Atraumatic, normocephalic Eyes: PERRL bilaterally, EOMI bilateral, no conjunctival injection noted Neck: Soft, supple, trachea midline Cardiovascular: Regular rate and rhythm no murmurs gallops rubs noted Respiratory: Patient has had expiratory wheezing noted bilaterally Abdomen: No tenderness palpation Extremities: +5/5 strength noted in the bilateral upper and lower extremities, radial pulses +2/4 in the bilateral extremities, no pedal edema on exam Neurological: Patient following commands and that she was at [facility] years 2024 Skin: Warm, dry, intact no rashes or lesions noted Const Vital Signs: 01/01/25 17:27 01/01/25 17:57 01/01/25 18:18 Temperature 98.3 F 98.4 F Temperature Source Oral Oral Pulse Rate 90 74 97 Respiratory Rate 24 H 25 H 20 H Respiratory Pattern Normal Blood Pressure 112/68 97/53 L Blood Pressure Mean 82 67 Pulse Ox 97 95 Oxygen Delivery Method Nasal Cannula Nasal Cannula Oxygen Flow Rate (L/min) 2 2 01/01/25 18:24 01/01/25 18:30 01/01/25 19:00 Temperature 98.4 F 98.2 F Temperature Source Oral Oral Pulse Rate 78 83 Respiratory Rate 12 28 H Respiratory Pattern Blood Pressure 105/62 116/59 L Blood Pressure Mean 76 78 Pulse Ox 98 98 95 Oxygen Delivery Method Nasal Cannula Nasal Cannula Nasal Cannula Oxygen Flow Rate (L/min) 2 2 2 01/01/25 20:00 01/01/25 21:00 Temperature 98.3 F 98.2 F Temperature Source Oral Oral Pulse Rate 88 85 Respiratory Rate 23 H 26 H Respiratory Pattern Blood Pressure 103/66 148/76 H Blood Pressure Mean 78 100 Pulse Ox 95 98 Oxygen Delivery Method Nasal Cannula Nasal Cannula Oxygen Flow Rate (L/min) 2 2 MDM MDM MDM Narrative Medical decision making narrative: Patient is a 74-year-old female who presented to the emergency department with a chief complaint of cough and shortness of breath. On the differential diagnose includes but not limited to upper respiratory infection secondary viral etiology, pneumonia, pneumothorax, COPD exacerbation. Once workup is obtained reviewed she will be reevaluated. Patient be given 3 DuoNebs and prednisone. Patient's CBC reviewed and showed evidence of leukocytosis 6.8, he was 12.6, plate count normal at 75. Patient INR 1.2, PT of 15.1. Patient sodium 130, potassium normal 3.8, creatinine normal 1.05. Patient lactic acid normal 0.1, troponin was 19 delta troponin pending EKG showed a sinus rhythm with a rate of 75 beats per minutes with evidence of incomplete right bundle branch block. Patient's proBNP was 732 urinalysis pending. Patient's chest x-ray reviewed by myself and by radiology showed stable left diaphragmatic elevation. The pulmonary findings grossly unchanged when compared to prior examination dating back to 03/24/2023. Patient did test positive for influenza A. Patient ambulated here in the emergency department on her 2 L nasal cannula and she had hypoxia down to 87%. Will discuss case with hospitalist for admission. Discussed case with hospitalist Dr. Gonzalez who accept patient for admission. Patient was notified is agreeable this plan all question concerns were answered at bedside. Lab Data Labs: Laboratory Results - last 24 hr 01/01/25 01/01/25 01/01/25 17:50 18:18 20:23 WBC 6.8 RBC 4.19 L Hgb 12.6 Hct 38.6 MCV 92.1 MCH 30.1 MCHC 32.6 RDW Std Deviation 45.6 H RDW Coeff of Gil 13.4 Plt Count 175 MPV 10.3 Immature Gran % (Auto) 0.400 Neut % (Auto) 74.6 H Lymph % (Auto) 7.2 L [place] % (Auto) 17.1 H Eos % (Auto) 0.1 Baso % (Auto) 0.6 Absolute Neuts (auto) 5.1 Absolute Lymphs (auto) 0.49 L Nucleated RBC % 0 PT 15.1 H INR 1.2 APTT 30.4 Sodium 138 Potassium 3.8 Chloride 103 Carbon Dioxide 22.5 Anion Gap 13 BUN 13 Creatinine 1.05 Estim Creat Clear Calc 54.87 Est GFR (MDRD) Non-Af 55 L BUN/Creatinine Ratio 12.4 Glucose 92 Hemoglobin A1c 6.2 Lactic Acid 1.1 Calcium 8.7 Troponin T High Sens 19 H Troponin T Hi Sens 2 Hr 19 H NT pro BNP II 732 Urine Color Urine Clarity Urine pH Ur Specific [place] Urine Protein Urine Glucose (UA) Urine Ketones Urine Occult Blood Urine Nitrite Urine Bilirubin Urine Urobilinogen Ur Leukocyte Esterase Urine RBC Urine WBC Ur Squamous Epith Cells Urine Bacteria Urine Mucus 01/01/25 21:00 WBC RBC Hgb Hct MCV MCH MCHC RDW Std Deviation RDW Coeff of Gil Plt Count MPV Immature Gran % (Auto) Neut % (Auto) Lymph % (Auto) [place] % (Auto) Eos % (Auto) Baso % (Auto) Absolute Neuts (auto) Absolute Lymphs (auto) Nucleated RBC % PT INR APTT Sodium Potassium Chloride Carbon Dioxide Anion Gap BUN Creatinine Estim Creat Clear Calc Est GFR (MDRD) Non-Af BUN/Creatinine Ratio Glucose Hemoglobin A1c Lactic Acid Calcium Troponin T High Sens Troponin T Hi Sens 2 Hr NT pro BNP II Urine Color Yellow Urine Clarity Sl. Cloudy Urine pH 6.0 Ur Specific [place] 1.020 Urine Protein 30 H Urine Glucose (UA) Normal Urine Ketones Negative Urine Occult Blood 10 H Urine Nitrite Negative Urine Bilirubin Negative Urine Urobilinogen Normal Ur Leukocyte Esterase 25 H Urine RBC 0 SEEN Urine WBC 0-5 SEEN Ur Squamous Epith Cells 0-5 SEEN Urine Bacteria RARE Urine Mucus 0 SEEN Radiography Diagnostic Testing: Clinical Impression(s) from Imaging Studies Chest X-Ray 01/01/25 17:55 IMPRESSION: Stable left diaphragmatic elevation. Pulmonary findings are grossly unchanged when compared to prior examination dating back to 03/24/2023. Reading Location: [id number] Discharge Plan Dx/Rx/DC Orders Clinical Impression: Acute on chronic hypoxic respiratory failure, Influenza A, COPD exacerbation Disposition Disposition: Acute Care [facility] Discharge Date/Time: 01/01/25 22:26
[2025-01-01 21:08] LABS: Mucous, Urine 0 SEEN /hpf (<or=2+)
[2025-01-01 21:11] LABS: Color, Urine Yellow (Yellow); Glucose, Dipstick Normal (Normal); Ketone-Dipstick Negative (Negative); Leukocyte Esterase-Dipstick 25 /ul (Negative); Nitrite-Dipstick Negative (Negative); Occult Blood-Urine 10 /ul (Negative); Protein-Dipstick 30 mg/dl (Negative); Urine Bilirubin Dipstick Negative (Negative); Urine Clarity Sl. Cloudy (Clear); Urine Urobilinogen Normal (Normal)
--- NOTE | 2025-01-01 21:15 | PCM.HP.STD ---
[facility] - General General Date of Admission: 01/01/25 Date of Service: 01/01/25 Chief Complaint: SOB, Cough and Generalized Weakness. [facility] Narrative MENA JENKINS, is a 74 F with a past history of essential hypertension; on lisinopril, metoprolol and furosemide 20 mg p.o. twice daily, hyperlipidemia; on atorvastatin, obesity; with BMI of 37.5 this admission, SELENA; on CPAP, history of tobacco abuse (quit 1979); with subsequent COPD, chronic hypoxic respiratory failure; on 2.5L NC continuous, history of tracheostomy (~2013), DM-2; of unknown control on insulin glargine 32 units sq every PM, history rheumatic fever, history of paroxysmal atrial fibrillation (2019); on baby aspirin daily, history of cor pulmonale, history of RBBB and Left posterior fascicular block, history of thoracic outlet syndrome, history of vitamin D deficiency, history of vitamin B12 deficiency, seasonal allergies; on loratadine plus fluticasone nasal spray, RLS, history of fibromyalgia, depression; on duloxetine, history of TMJ dysfunction, history of hysterectomy, history of diverticulitis, history of umbilical hernia; s/p repair, GERD; on esomeprazole BID and OA; s/p TKR and radiofrequency ablation of a nerve of the cervical spine on naproxen twice daily plus baclofen 3 times daily for muscle spasms with patient using a walker at baseline for ambulation who presents to [facility] ER complaining of shortness of breath, cough and generalized weakness. Mrs. Jenkins reports her symptoms began on Sunday, December 29, 2024 with a gradual-onset of progressively worsening cough productive of yellowish sputum with generalized weakness. She also admits to worsening shortness of breath with chills. He was also sick with a similar viral illness just prior to her apparently catching it from him. She denies associated fever, changes in vision, chest pain, palpitations, heart racing, abdominal pain, nausea, vomiting, diarrhea, constipation, dysuria, hematuria, rash or headache. In the ER she was noted to have a viral assay returned positive for Influenza A complicated by clinical evidence of mild AE COPD with [id number] Respiratory Insufficiency compounded by suspected Acute Bacterial Bronchitis with Generalized Weakness and she was then admitted to the general medical floor for ongoing care for stay that is expected to extend beyond 2 midnights. 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 Obesity Chronic respiratory failure with hypoxia, on home O2 therapy History of rheumatic fever Hyperlipidemia SELENA (obstructive sleep apnea) Osteoarthritis Paroxysmal atrial fibrillation (07/2020) Restless legs syndrome (RLS) H/O fibromyositis Fibromyalgia Essential tremor Depression Chronic low back pain Essential hypertension Class 2 obesity with body mass index (BMI) of 39.0 to 39.9 in adult Type 2 diabetes mellitus with diabetic polyneuropathy Vitamin D deficiency Vitamin B 12 deficiency Cor pulmonale Atrial fibrillation Irregular heart beat COPD (chronic obstructive pulmonary disease) Home Medications ?Medication ?Instructions ?Recorded ?Last Taken ?Type fluticasone propionate 50 2 spray intranasal DAILY 03/20/22 05/19/22 History mcg/actuation nasal spray,suspension loratadine 10 mg capsule 10 mg PO DAILY 03/20/22 Unknown History aspirin 81 mg tablet,delayed 81 mg PO DAILY 04/02/22 04/23/22 History release (Adult Low Dose Aspirin) albuterol sulfate 90 mcg/actuation 2 puff inhalation Q6H PRN 04/20/22 Unknown Rx aerosol inhaler shortness of breath or wheezing #8.5 grams albuterol sulfate 2.5 mg/3 mL 2.5 mg continuous nebulization 09/16/22 Unknown History (0.083 %) solution for nebulization emollient (Vanicream topical) applic topical 02/28/23 Unknown History sodium chloride-aloe vera nasal 1 applic topical HS PRN 02/28/23 Unknown History gel ([place] Saline nasal gel) fluticasone fur. 200 mcg-umeclid 1 inh inhalation DAILY 04/11/23 Unknown History 62.5 mcg-vilant 25 mcg inhalat.powder (Trelegy Ellipta) insulin glargine 100 unit/mL 32 unit subcut QPM 11/08/23 Unknown History subcutaneous cartridge blood sugar diagnostic (Accu-Chek #300 ea 01/02/24 Unknown Rx SmartView Test Strips) blood-glucose meter (OneTouch #1 ea 03/19/24 Unknown Rx Verio Flex Meter) azelastine 137 mcg (0.1 %) nasal 1 spray intranasal BID PRN 04/04/24 Unknown Rx spray congestion #30 mL atorvastatin 40 mg tablet (Lipitor) 40 mg PO DAILY #90 tabs 05/02/24 Unknown Rx baclofen 10 mg tablet 10 mg PO TID PRN 05/02/24 Unknown History naproxen sodium 220 mg capsule 220 mg PO Q12H PRN 05/02/24 Unknown History (Aleve) duloxetine 40 mg capsule,delayed 40 mg PO DAILY #90 caps 09/05/24 Unknown Rx release blood sugar diagnostic (OneTouch #100 ea 10/23/24 Unknown Rx Verio test strips) esomeprazole magnesium 40 mg 40 mg PO BID #180 caps 10/23/24 Unknown Rx capsule,delayed release insulin glargine 100 unit/mL (3 32 unit (0.32 mL) subcut QPM #15 mL 10/23/24 Unknown Rx mL) subcutaneous pen lisinopril 5 mg tablet 5 mg PO DAILY #90 tabs 10/23/24 Unknown Rx metoprolol succinate 50 mg 50 mg PO DAILY #90 tabs 10/23/24 Unknown Rx tablet,extended release 24 hr (Toprol XL) montelukast 10 mg tablet 10 mg PO QHS #90 tabs 10/23/24 Unknown Rx potassium chloride 20 mEq 20 meq PO DAILY #90 TABLETS 10/23/24 Unknown Rx tablet,extended release(part/cryst) (Klor-Con M) furosemide 20 mg tablet 40 mg (2 x 20 mg) PO BID #180 tabs 12/20/24 Unknown Rx insulin syringe-needle U-100 0.3 #50 ea 12/20/24 Unknown Rx mL 31 gauge x 5/16 (BD Insulin Syringe Ultra-Fine) Allergy/AdvReac Type Severity Reaction Status Date / Time cat dander Allergy Severe Inflammation Verified 01/01/25 17:28 of lung house dust Allergy Nasal Verified 01/01/25 17:28 congestion and watery eyes meperidine (From Demerol) Allergy Itching Verified 01/01/25 17:28 mold Allergy nasal Verified 01/01/25 17:28 congestion and watery eyes Penicillins (PCN) Allergy Hives Verified 01/01/25 17:28 tree and shrub pollen Allergy Other Verified 01/01/25 17:28 Family History Mother COPD (chronic obstructive pulmonary disease) Colon cancer Father COPD (chronic obstructive pulmonary disease) Myocardial infarction Alcoholism Emphysema lung Sister Breast cancer Cancer Lung cancer Brother COPD (chronic obstructive pulmonary disease) Aunt Diabetes Surgical History Hx of cataract surgery History of bilateral cataract extraction H/O esophagogastroduodenoscopy History of cardiac catheterization History of thumb surgery History of tracheostomy (~2013) History of radiofrequency ablation (RFA) of nerve of cervical spine History of knee replacement History of colonoscopy (~01/2022) History of dilatation and curettage History of tonsillectomy History of umbilical hernia repair H/O: hysterectomy Social History household members: spouse current occupational status: retired 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 Eyes: Patient denies change in vision or discharge from eyes. ENT: Patient admits to runny nose but she denies sore throat or ear pain. Resp: Patient admits to dyspnea on exertion with cough increasingly productive of yellowish sputum. CV: Patient denies chest pain, palpitations, heart racing or lower extremity edema. GI: Patient denies abdominal pain, nausea, vomiting, diarrhea or constipation. : Patient denies dysuria or hematuria. MSK: Patient admits to diffuse myalgias. Skin: Patient denies rash, abscess, wounds or jaundice. Psych: Patient denies symptoms of uncontrolled depression or anxiety. Neuro: Patient denies headache, paresthesias or focal neurologic deficits. Allergy: Patient denies lip swelling, tongue swelling or urticaria. Hematology: Patient denies easy bleeding or easy bruisability. Endocrinology: Patient denies polyuria, polydipsia, polyphagia or cold/heat intolerance. 14 point ROS otherwise negative except for positives noted above in HPI. Vital Signs Vital Signs Vital Signs: 01/01/25 17:27 01/01/25 17:57 01/01/25 18:18 Temperature 98.3 F 98.4 F Temperature Source Oral Oral Pulse Rate 90 74 97 Respiratory Rate 24 H 25 H 20 H Respiratory Pattern Normal Blood Pressure 112/68 97/53 L Blood Pressure Mean 82 67 Pulse Ox 97 95 Oxygen Delivery Method Nasal Cannula Nasal Cannula Oxygen Flow Rate (L/min) 2 2 01/01/25 18:24 01/01/25 18:30 01/01/25 19:00 Temperature 98.4 F 98.2 F Temperature Source Oral Oral Pulse Rate 78 83 Respiratory Rate 12 28 H Respiratory Pattern Blood Pressure 105/62 116/59 L Blood Pressure Mean 76 78 Pulse Ox 98 98 95 Oxygen Delivery Method Nasal Cannula Nasal Cannula Nasal Cannula Oxygen Flow Rate (L/min) 2 2 2 01/01/25 20:00 01/01/25 21:00 Temperature 98.3 F 98.2 F Temperature Source Oral Oral Pulse Rate 88 85 Respiratory Rate 23 H 26 H Respiratory Pattern Blood Pressure 103/66 148/76 H Blood Pressure Mean 78 100 Pulse Ox 95 98 Oxygen Delivery Method Nasal Cannula Nasal Cannula Oxygen Flow Rate (L/min) 2 2 Weight Weight: 225 lb 4.8 oz Body Mass Index (BMI) 37.5 Physical Exam Const alert, oriented x3 and no apparent distress Constitutional Narrative: Obese with chronically ill appearance. General Appearance: cooperative HEENT normocephalic, head/scalp atraumatic, hearing grossly normal bilaterally and moist oral mucous membranes Eyes PERRL, EOMs intact bilaterally and conjunctivae normal Neck no lymphadenopathy and supple Resp Resp Narrative: Patient has diffuse expiratory wheezing noted throughout all lung cowart. Auscultation: wheezes Cardio regular rate and regular rhythm GI normal to inspection, nondistended, normoactive bowel sounds, soft to palpation, non-tender and non-distended GI Narrative: Obese. Extremity normal to inspection, full ROM and no clubbing, cyanosis or edema Skin Skin Narrative: Patient has evidence of rash, abscess, wounds or jaundice. Neuro oriented x3, CN's II-XII intact bilaterally, moves all extremities and no focal motor deficits Sensorium / Orientation: awake, alert, oriented to person, oriented to place and oriented to time Speech: speech normal Psych affect normal Results Medical Records Data Attestation: I reviewed the patient's medical records Lab / Micro Data Attestation: I reviewed the patient's lab results. 01/01/25 17:50 01/01/25 17:50 Labs: Laboratory Results - last 24 hr 01/01/25 17:50: WBC 6.8, RBC 4.19 L, Hgb 12.6, Hct 38.6, MCV 92.1, MCH 30.1, MCHC 32.6, RDW Std Deviation 45.6 H, RDW Coeff of Gil 13.4, Plt Count 175, MPV 10.3, Immature Gran % (Auto) 0.400, Neut % (Auto) 74.6 H, Lymph % (Auto) 7.2 L, [place] % (Auto) 17.1 H, Eos % (Auto) 0.1, Baso % (Auto) 0.6, Absolute Neuts (auto) 5.1, Absolute Lymphs (auto) 0.49 L, Nucleated RBC % 0, Sodium 138, Potassium 3.8, Chloride 103, Carbon Dioxide 22.5, Anion Gap 13, BUN 13, Creatinine 1.05, Estim Creat Clear Calc 54.87, Est GFR (MDRD) Non-Af 55 L, BUN/Creatinine Ratio 12.4, Glucose 92, Calcium 8.7, Troponin T High Sens 19 H, NT pro BNP II 732 01/01/25 18:18: PT 15.1 H, INR 1.2, APTT 30.4, Lactic Acid 1.1 Micro: Microbiology 01/01/25 17:53 Mucosa - Nose SARS-CoV-2, Influenza & RSV (PCR) - Final Influenzae A Imaging Radiology Impression Chest X-Ray 01/01/25 17:55 IMPRESSION: Stable left diaphragmatic elevation. Pulmonary findings are grossly unchanged when compared to prior examination dating back to 03/24/2023. Reading Location: [id number] Assessment & Plan Assessment/Plan (1) Influenza A: (2) COPD exacerbation: (3) Acute bacterial bronchitis: (4) Respiratory insufficiency: (5) Chronic respiratory failure with hypoxia, on home O2 therapy: (6) Generalized weakness: (7) Myalgia: (8) Malaise: (9) Obesity (BMI 30-39.9): (10) SELENA (obstructive sleep apnea): PLAN: Plan 1. Viral assay returned positive for Influenza A - Admit to general medical floor under contact and droplet precautions. Start oseltamivir 30 mg PO BID x 5 days. Give vitamin D3, vitamin C and zinc to help boost immunity and hopefully speed recovery. Give acetaminophen prn for [id number] (level 1-5/10) pain or fever. Give oxycodone prn for severe (level 6-10/10) pain. 2. AE COPD with [id number]-Qkklfro Respiratory insufficiency due to #1 with suspected evolving Acute Bacterial Bronchitis - Start doxycycline IV plus methylprednisolone IV and wean as tolerated. Wean supplemental oxygen back down to baseline levels as tolerated. Give mucolytics as needed. 3. Generalized Weakness with Diffuse Myalgias and Malaise attributable to #1 & #2 with patient using a walker at baseline for ambulation at baseline - PT/OT and Case Management to consult and treat on rounds in AM for further recommendations with help appreciated in advance. 4. Obesity; with BMI of 37.5 this admission plus SELENA; on CPAP adding to the burden of disease outlined from #1 - #3 - Weight loss will be recommended. Check TSH. Resume nocturnal CPAP as previous. This complicates her case and may hamper recovery. 5. Essential Hypertension; on lisinopril, metoprolol and furosemide 20 mg p.o. twice daily - Continue home regimen plus give prn IV hydralazine for systolic blood pressure > 160 mmHg. 6. Hyperlipidemia; on atorvastatin - Maintain statin and check Lipid Profile. 7. History of tobacco abuse (quit 1979); with subsequent COPD and chronic hypoxic respiratory failure; on 2.5L NC continuous - Treatment plan noted in #2. 8. DM-2; of unknown control on insulin glargine 32 units sq every PM - Resume current treatment plus augment with FSBS q. AC/HS plus medium intensity SSI. Check HgbA1c to objectively assess quality of diabetic control. 9. History of tracheostomy (~2013) - Noted. 10. History rheumatic fever - Stable. 11. History of paroxysmal atrial fibrillation (2019); on baby aspirin daily - Noted with patient currently in NSR. 12. History of cor pulmonale - Noted. 13. History of RBBB and Left posterior fascicular block - Stable. 14. History of thoracic outlet syndrome - Noted. 15. History of vitamin D deficiency - Check vitamin D level this admission. 16. History of vitamin B12 deficiency - Check B12 level this admission. 17. Seasonal allergies; on loratadine plus fluticasone nasal spray - Maintain current regimen. 18. RLS - Stable. 19. History of fibromyalgia - Noted. 20. Depression; on duloxetine - Resume duloxetine as before. 21. History of TMJ dysfunction - Noted with no evidence of recurrence at this time. 22. History of hysterectomy - Noted for the sake of completeness. 23. History of diverticulitis - Noted. 24. History of umbilical hernia; s/p repair - Noted. 25. GERD; on esomeprazole BID - Continue PPI as previous. 26. OA; s/p TKR and radiofrequency ablation of a nerve of the cervical spine on naproxen twice daily plus baclofen 3 times daily for muscle spasms - Give acetaminophen prn as per pain scale outlined in #1. Maintain current baclofen dosing and frequency. 27. DVT prophylaxis - Lovenox 40 mg sq daily plus SCD's. Total time: Approximately (but not less than) 75 minutes. Charges/Coding Visit Charges Inpatient E&M: 57654 Init Hosp L3
[2025-01-01 21:31] LABS: Troponin T High Sens 2 HR 19 ng/L (<=14)
[2025-01-01 21:32] LABS: Bacteria RARE /hpf (None Seen); Red Blood Cells-Urine 0 SEEN /hpf (0-5); Squamous Epithelial Cells - UA 0-5 SEEN /hpf (5-10); White Blood Cells 0-5 SEEN /hpf (0-5)
--- NOTE | 2025-01-01 21:41 | ED.RN ---
Patient does not know her home medications. Family member at bedside states she can go to house and look at her medications and call in to the hospital later tonight. Patient states her has the house keys and that they lock up their medications and that he should have the chou to that as well. is currently admitted to [facility] ICU, patient gives this nurse permission to ask for the keys and give them to the family member.
--- NOTE | 2025-01-01 22:25 | ED.RN ---
Fluids infusing slowly, unable to infuse all of saline ordered in ED prior to admission
[2025-01-01 22:32] LABS: Troponin T High Sens 4 HR 18 ng/L (<=14)
[2025-01-01 23:07] LABS: Magnesium 1.8 mg/dL (1.5-2.2)
[2025-01-01] MEDS: 0.9% Normal Saline (1000mL) 1,000 ML 50 ML IV (23:07)
--- NOTE | 2025-01-01 23:23 | NURSING ---
Lucy Pappas called in and states she doesn't know what medications patient should be taking. We will need to obtain a list from the patients primary care.
[2025-01-01 23:35] LABS: FOLATES,SERUM (FOLIC ACID) 9.11 ng/mL (4.60-34.80)
[2025-01-01 23:36] LABS: Hemoglobin A1c 6.2 % (<=5.6)
--- NOTE | 2025-01-01 23:37 | NURSING ---
primary care Dr Aixa Magdaleno [phone]
[2025-01-01] MEDS: Doxycycline 100 MG in 0.9% Normal Saline (250mL Bag) 250 ML 250 MG IV (23:52)
[2025-01-01] MEDS: MethylPREDNISolone 125 MG/2 ML Vial IV (23:55)
[2025-01-01] MEDS: 0.9% Saline Lock 10 ML Syringe IV (23:55)
[2025-01-01] MEDS: Insulin Lispro 100 UNIT/ML INSULN.PEN SC (23:56)
[2025-01-01 23:58] LABS: Bedside Glucose 155 mg/dL (74-106)
[2025-01-01] MEDS: Montelukast 10 MG Tablet PO (23:58)
[2025-01-01] MEDS: Pantoprazole Sodium 40 MG Tablet PO (23:58)
[2025-01-01] MEDS: Oseltamivir Phosphate 30 MG Capsule PO (23:58)
[2025-01-02] VITALS (14 sets, daily range): BP systolic 109–133; BP diastolic 40–65; PULSE 79–89; RESP 18–22; TEMP 36.3–36.9; O2SAT 93–98; BMI 39.2
[2025-01-02 00:02] LABS: Thyroid Stim Hormone (TSH) 0.725 uIU/mL (0.300-4.200); Vitamin B12 334 pg/mL (180-914)
--- NOTE | 2025-01-02 00:44 | CPS ---
Patient will have home CPAP delivered
[2025-01-02 04:22] LABS: Absolute Lymphocyte Count 0.26 X10^3/uL (0.83-4.51); Absolute Neutrophil Count 4.8 X10^3/uL (2.0-7.7); Basophil# 0.01 X10^3/uL; Basophil% 0.2 % (0-1); Hematocrit 36.2 % (37-47); Hemoglobin 11.9 g/dL (12.0-15.0); Lymphocyte # 0.26 X10^3/ul (0.83-4.51); Mean Corp Hgb Conc 32.9 g/dL (32-36); Mean Corpuscular Hgb 30.8 pg (27.0-32.0); Mean Corpuscular Volume 93.8 fL (81-99); Mean Platelet Vol. 10.4 fl (6.2-12.0); Monocyte# 0.12 X10^3/uL; Monocyte% 2.3 % (0-10); NRBC Flagged by Analyzer 0 % (0-5); Neutrophil # 4.82 X10^3/uL (2.7-7.7); Neutrophil % 92.1 % (47-70); POSITIVE DIFFERENTIAL YES; Platelet Count 166 K/mm3 (150-450); RBC Distribution Width CV 13.5 % (11.6-14.6); RBC Distribution Width SD 45.9 fl (35.1-43.9); Red Blood Count 3.86 M/mm3 (4.2-5.4); White Blood Count 5.2 K/mm3 (4.4-11.0)
[2025-01-02 04:56] LABS: ALB/GLOB Ratio 1.6 RATIO (0.9-2.4); AST(SGOT) 28 U/L (<=31); Alanine Aminotransfer ALT/SGPT 20 U/L (<=34); Albumin, Serum 3.5 g/dL (3.4-4.8); Alkaline Phosphatase 78 U/L (35-104); Anion Gap 10 (5-15); BUN 13 mg/dL (4-19); BUN/Creat Ratio 14.1 RATIO (10-20); Calcium,Total 8.2 mg/dL (7.6-11.0); Carbon Dioxide 21.8 mmol/L (21.0-32.0); Chloride 109 mmol/L (98-108); Cholesterol 132 mg/dL (<=200); EST Glomerular Filtration Rate 67 (>60); Estimated Creatinine Clearance 63.28 ml/min (50-250); Globulin 2.2 g/dL (2.2-4.2); Glucose 200 mg/dL (70-99); High Density Lipoprotein 57 mg/dL; Low Density Lipoprotein Calc. 67 mg/dL; Phosphorus 3.6 mg/dL (2.7-4.5); Potassium 4.5 mmol/L (3.3-5.1); Protein, Total 5.7 g/dL (5.9-8.4); Sodium Level 140 mmol/L (133-145); Total Bilirubin 0.36 mg/dL (0.00-1.30); Triglycerides 39 mg/dL; Very Low Density Lipoprotein 8 mg/dL (5-40); cholesterol:hdl ratio screen 2.31
[2025-01-02] MEDS: Acetaminophen 325 MG Tablet 650 MG PO (06:10)
[2025-01-02] MEDS: Insulin Lispro 100 UNIT/ML INSULN.PEN SC ×2 (06:13→11:48)
[2025-01-02 06:50] LABS: Bedside Glucose 181 mg/dL (74-106)
[2025-01-02] MEDS: Ipratropium/Albuterol Sulfate 3 ML AMPUL.NEB INHALATION (06:56)
--- NOTE | 2025-01-02 09:10 | PCM.PN.HOSP ---
Reason for Visit Reason for Visit: Shortness of breath Subjective Subjective Patient is a 74-year-old female with a history of COPD/asthma overlap syndrome, chronic hypoxemic respiratory failure, tracheal stenosis with previous emergent tracheostomy having granulation tissue requiring intervention and SELENA noncompliant with CPAP who presented to the emergency department at [facility] on 01/01/2025 with chief complaint of shortness of breath. She follows at baseline as an outpatient with Dr. Tara Merino at [facility] for pulmonary medicine. She wears 2 L of supplemental oxygen at her baseline. Upon presentation emergency department she complained of cough, generalized bodyaches, weakness and shortness of breath but no increase in oxygen requirements. She noted that she started to feel poorly on Tuesday and got worse which prompted evaluation emergency department. She also reported that her was ill as well. Vital signs on presentation showed temperature of 98.3, heart rate 90, respiratory 24, blood pressure was 112/68, and pulse ox was 97% on 2 L nasal cannula. She did desat to 87% on her baseline 2 L nasal cannula and therefore was admitted to the hospital. CBC on presentation was unremarkable. She did have a mild left shift with 74.6% neutrophilia. Her chemistry panel was unremarkable. Initial troponin was slightly high at 19 but delta was 19 and third troponin was 18. BNP was normal. Chest x-ray showed stable left diaphragmatic elevation with chronic pulmonary scarring. Objective Data Objective Data Vital Signs: Vital Signs Temp Pulse Resp BP Pulse Ox O2 Del Method O2 Flow Rate 97.8 F 89 22 H 133/63 H 96 Nasal Cannula 2 01/02/25 06:06 01/02/25 07:05 01/02/25 07:05 01/02/25 06:06 01/02/25 07:42 01/02/25 07:42 01/02/25 07:42 Oxygen Flow Rate (L/min) 2 Oxygen Delivery Method Nasal Cannula Weight: 103.5 kg Body Mass Index (BMI) 39.2 Intake & Output: Intake and Output for Last 24 Hours 12/31/24 01/01/25 01/02/25 23:59 23:59 23:59 Intake Total 2038. / 2038. 260 / 260 Balance / 260 / 260 Lab / Micro Data 01/02/25 03:43 01/02/25 03:43 Labs: Laboratory Results - last 24 hr 01/01/25 17:50: WBC 6.8, RBC 4.19 L, Hgb 12.6, Hct 38.6, MCV 92.1, MCH 30.1, MCHC 32.6, RDW Std Deviation 45.6 H, RDW Coeff of Gil 13.4, Plt Count 175, MPV 10.3, Immature Gran % (Auto) 0.400, Neut % (Auto) 74.6 H, Lymph % (Auto) 7.2 L, [place] % (Auto) 17.1 H, Eos % (Auto) 0.1, Baso % (Auto) 0.6, Absolute Neuts (auto) 5.1, Absolute Lymphs (auto) 0.49 L, Nucleated RBC % 0, Sodium 138, Potassium 3.8, Chloride 103, Carbon Dioxide 22.5, Anion Gap 13, BUN 13, Creatinine 1.05, Estim Creat Clear Calc 54.87, Est GFR (MDRD) Non-Af 55 L, BUN/Creatinine Ratio 12.4, Glucose 92, Hemoglobin A1c 6.2, Calcium 8.7, Troponin T High Sens 19 H, NT pro BNP II 732 01/01/25 18:18: PT 15.1 H, INR 1.2, APTT 30.4, Lactic Acid 1.1 01/01/25 20:23: Troponin T Hi Sens 2 Hr 19 H 01/01/25 21:00: Urine Color Yellow, Urine Clarity Sl. Cloudy, Urine pH 6.0, Ur Specific [place] 1.020, Urine Protein 30 H, Urine Glucose (UA) Normal, Urine Ketones Negative, Urine Occult Blood 10 H, Urine Nitrite Negative, Urine Bilirubin Negative, Urine Urobilinogen Normal, Ur Leukocyte Esterase 25 H, Urine RBC 0 SEEN, Urine WBC 0-5 SEEN, Ur Squamous Epith Cells 0-5 SEEN, Urine Bacteria RARE, Urine Mucus 0 SEEN 01/01/25 22:04: Magnesium 1.8, Troponin T Hi Sens 4Hr 18 H, Vitamin B12 334, TSH 0.725 01/01/25 22:44: Serum Folate 9.11 01/01/25 23:40: POC Glucose 155 H 01/02/25 03:43: WBC 5.2, RBC 3.86 L, Hgb 11.9 L, Hct 36.2 L, MCV 93.8, MCH 30.8, MCHC 32.9, RDW Std Deviation 45.9 H, RDW Coeff of Gil 13.5, Plt Count 166, MPV 10.4, Immature Gran % (Auto) 0.400, Neut % (Auto) 92.1 H, Lymph % (Auto) 5.0 L, [place] % (Auto) 2.3, Eos % (Auto) 0.0, Baso % (Auto) 0.2, Absolute Neuts (auto) 4.8, Absolute Lymphs (auto) 0.26 L, Nucleated RBC % 0, Sodium 140, Potassium 4.5, Chloride 109 H, Carbon Dioxide 21.8, Anion Gap 10, BUN 13, Creatinine 0.90, Estim Creat Clear Calc 63.28, Est GFR (MDRD) Non-Af 67, BUN/Creatinine Ratio 14.1, Glucose 200 H, Calcium 8.2, Phosphorus 3.6, Total Bilirubin 0.36, AST 28, ALT 20, Alkaline Phosphatase 78, Total Protein 5.7 L, Albumin 3.5, Globulin 2.2, Albumin/Globulin Ratio 1.6, Triglycerides 39, Cholesterol 132, LDL Cholesterol, Calc 67, VLDL Cholesterol 8, HDL Cholesterol 57, Cholesterol/HDL Ratio 2.31 01/02/25 06:12: POC Glucose 181 H Micro: Microbiology 01/01/25 17:53 Mucosa - Nose SARS-CoV-2, Influenza & RSV (PCR) - Final Influenzae A Radiography Diagnostic Testing: Radiology Impression Chest X-Ray 01/01/25 17:55 IMPRESSION: Stable left diaphragmatic elevation. Pulmonary findings are grossly unchanged when compared to prior examination dating back to 03/24/2023. Reading Location: [id number]
[2025-01-02] MEDS: Glucerna Shake 120 ML LIQUID PO (09:24)
[2025-01-02] MEDS: Aspirin E.C. 81 MG Tablet PO (09:26)
[2025-01-02] MEDS: Pantoprazole Sodium 40 MG Tablet PO (09:26)
[2025-01-02] MEDS: Potassium Chloride Oral Tablet 20 MEQ PO (09:26)
[2025-01-02] MEDS: Loratadine 10 MG Tablet PO (09:26)
[2025-01-02] MEDS: Oseltamivir Phosphate 30 MG Capsule PO (09:26)
[2025-01-02] MEDS: DULoxetine Hcl 20 MG Capsule 40 MG PO (09:27)
[2025-01-02] MEDS: Enoxaparin 40 MG/0.4 ML Syringe SC (09:27)
[2025-01-02] MEDS: Furosemide 40 MG Tablet PO (09:27)
[2025-01-02] MEDS: Lactobacillis Acidophilus 1 CAP PO ×2 (09:27→13:17)
[2025-01-02] MEDS: Lisinopril 5 MG Tablet PO (09:27)
[2025-01-02] MEDS: Metoprolol(XL)Succ 50 MG Tablet PO (09:29)
[2025-01-02] MEDS: Fluticasone 0.05% 1 SPRAY NASAL.SRY 2 SPRAY NASAL (09:34)
[2025-01-02] MEDS: guaiFENesin 1,200 MG Tablet 1200 MG PO (09:45)
[2025-01-02] MEDS: Petrolatum 33% Tube 1 APPLIC TOPICAL (09:50)
--- NOTE | 2025-01-02 11:00 | CASEMGMT ---
RN CM MECHATRONICS ENGINEER CM?to room to meet with patient for initial transition planning/care coordination assessment. RN CM?introduced self and role at [facility]. Pt voices understanding and consents to assessment?at this time. Pt sitting up in chair in room in no distress at this time. Son and friend, Lucy, in room visiting and pt agreeable to them being present during assessment. Pt is A/O at this time and answers all questions appropriately. Care providers, pharmacy, and demographics verified/updated at this time. Strata:?2 PCP: Dr Magdaleno Specialists: Dr Tara Merino-pulmonology, Dr Humphries-cardiology Preferred Pharmacy: [facility] [place]. Otherwise, goes to [facility]. Insurance: [employer] Prescription Benefit: Yes Living Will/HPOA: Has both LW and HCPOA, who is her . LNOK: , Dave. Son Living Arrangements: Lives w/ in mobile home w/ramp entrance. Indep w/ADL's. does most home mgnt tasks. Transportation:?Pt states the state took her drivers' license away d/t tremors. Her drives. He is currently in ICU @ [facility]. She denies having transportation concerns, stating I'll find someone. Son or friend can take pt home @ [place]. DME: States has the following DME: shower chair, rollator, CPAP, nebulizer, pulse ox, functioning glucometer w/supplies, sufficient supply of insulin and needles. Pt has home o2 through [employer] that she wears @ 2 L/M continuously, stating she sometimes increases to 3 L/M if needed, stating her doctor is aware of this. She has a concentrator and a POC which is in her room to go home on, verifying it is charged. Pt states no need for further DME at this time. HHC/SNF: Has been to [facility] in the past and another SNF in [place], but she does not remember the name. She has also had HHC in the past from the [facility]. She declines wanting HHC @ [place]. Made aware to contact PCP if she changes her mind once returning home. Palliative Care: Pt qualifies for Palliative Care referral. Discussed this w/pt. Questions answered. She states may be interested, but wants to talk w/her about it first. Pt provided w/Palliative handout w/phone # and made aware to call or PCP if she decides she would like a referral. Pt wishes to return home and states has no concerns with going home at time of discharge. CM?to follow for any increase in home oxygen needs and any further discharge planning/needs. Pt voices no further concerns/needs at this time. Advised pt to ask for CM?if any further questions/concerns/needs arise. Voices understanding. PLAN: Home. Follow for any increase in home O2. Autumn HERZOGN RN CM
[2025-01-02 12:17] LABS: Bedside Glucose 215 mg/dL (74-106)
[2025-01-02] MEDS: Methylprednisolone Sod Succ 40 MG/ML VIAL IV (13:17)
[2025-01-02] MEDS: oxyCODONE 5 MG Tablet PO (13:19)
[2025-01-02] MEDS: Albuterol 2.5 MG/3 ML VIAL.NEB. INHALATION (13:34)
--- NOTE | 2025-01-02 13:36 | PCM.DC.SUM ---
Providers Date of Admission: 01/01/25 Date of Discharge: 01/02/25 Primary Care Physician: Dr. Aixa Magdaleno MD Reason For Visit: INFLUENZA A WITH AE COPD Diagnosis Discharge Diagnosis (1) Influenza A: Status: Acute Code(s): J10.1 - Influenza due to other identified influenza virus with other respiratory manifestations (2) COPD exacerbation: Status: Chronic Code(s): J44.1 - Chronic obstructive pulmonary disease with (acute) exacerbation (3) Acute bacterial bronchitis: Status: Acute Code(s): J20.8 - Acute bronchitis due to other specified organisms; B96.89 - Other specified bacterial agents as the cause of diseases classified elsewhere (4) Respiratory insufficiency: Status: Acute Code(s): R06.89 - Other abnormalities of breathing (5) Chronic respiratory failure with hypoxia, on home O2 therapy: Status: Chronic Code(s): J96.11 - Chronic respiratory failure with hypoxia; Z99.81 - Dependence on supplemental oxygen (6) Generalized weakness: Status: Acute Code(s): R53.1 - Weakness (7) Myalgia: Status: Acute Code(s): M79.10 - Myalgia, unspecified site (8) Malaise: Status: Acute Code(s): R53.81 - Other malaise (9) Obesity (BMI 30-39.9): Status: Acute Code(s): E66.9 - Obesity, unspecified (10) SELENA (obstructive sleep apnea): Status: Acute Code(s): G47.33 - Obstructive sleep apnea (adult) (pediatric) Medications at Discharge Home Medications fluticasone propionate 50 mcg/actuation nasal spray,suspension 2 spray intranasal DAILY nasal spray 03/20/22 loratadine 10 mg capsule 10 mg PO DAILY blood 03/20/22 aspirin 81 mg tablet,delayed release (Adult Low Dose Aspirin) 81 mg PO DAILY heart health 04/02/22 albuterol sulfate 90 mcg/actuation aerosol inhaler 2 puff inhalation Q6H PRN shortness of breath or wheezing #8.5 grams 04/20/22 albuterol sulfate 2.5 mg/3 mL (0.083 %) solution for nebulization 2.5 mg continuous nebulization Q4H PRN sob 09/16/22 emollient (Vanicream topical) applic topical 02/28/23 sodium chloride-aloe vera nasal gel ([place] Saline nasal gel) 1 applic topical HS PRN nasal gel 02/28/23 fluticasone fur. 200 mcg-umeclid 62.5 mcg-vilant 25 mcg inhalat.powder (Trelegy Ellipta) 1 inh inhalation DAILY breathi 04/11/23 insulin glargine 100 unit/mL subcutaneous cartridge 32 unit subcut QPM 11/08/23 blood sugar diagnostic (Accu-Chek SmartView Test Strips) #300 ea 01/02/24 blood-glucose meter (OneTouch Verio Flex Meter) #1 ea 03/19/24 azelastine 137 mcg (0.1 %) nasal spray 1 spray intranasal BID PRN congestion #30 mL 04/04/24 atorvastatin 40 mg tablet (Lipitor) 40 mg PO DAILY #90 tabs 05/02/24 baclofen 10 mg tablet 10 mg PO TID PRN pain 05/02/24 naproxen sodium 220 mg capsule (Aleve) 220 mg PO Q12H PRN pain 05/02/24 duloxetine 40 mg capsule,delayed release 40 mg PO DAILY #90 caps 09/05/24 blood sugar diagnostic (OneTouch Verio test strips) #100 ea 10/23/24 esomeprazole magnesium 40 mg capsule,delayed release 40 mg PO BID #180 caps 10/23/24 insulin glargine 100 unit/mL (3 mL) subcutaneous pen 32 unit (0.32 mL) subcut QPM #15 mL 10/23/24 lisinopril 5 mg tablet 5 mg PO DAILY #90 tabs 10/23/24 metoprolol succinate 50 mg tablet,extended release 24 hr (Toprol XL) 50 mg PO DAILY #90 tabs 10/23/24 montelukast 10 mg tablet 10 mg PO QHS #90 tabs 10/23/24 potassium chloride 20 mEq tablet,extended release(part/cryst) (Klor-Con M) 20 meq PO DAILY #90 TABLETS 10/23/24 furosemide 20 mg tablet 40 mg (2 x 20 mg) PO BID #180 tabs 12/20/24 insulin syringe-needle U-100 0.3 mL 31 gauge x 5/16 (BD Insulin Syringe Ultra-Fine) #50 ea 12/20/24 prednisone 10 mg tablet 10 mg PO DAILY #30 tabs 01/02/25 Hospital Course Operations None Procedures - (Chest x-ray) Summary of Care Provided Minutes Spent on Discharge: 37 Hospital Course: Patient is a 74-year-old female with a history of COPD/asthma overlap syndrome, chronic hypoxemic respiratory failure, tracheal stenosis with previous emergent tracheostomy having granulation tissue requiring intervention and SELENA noncompliant with CPAP who presented to the emergency department at [facility] on 01/01/2025 with chief complaint of shortness of breath. She follows at baseline as an outpatient with Dr. Tara Merino at [facility] for pulmonary medicine. She wears 2 L of supplemental oxygen at her baseline. Upon presentation emergency department she complained of cough, generalized bodyaches, weakness and shortness of breath but no increase in oxygen requirements. She noted that she started to feel poorly on Tuesday and got worse which prompted evaluation emergency department. She also reported that her was ill as well. Vital signs on presentation showed temperature of 98.3, heart rate 90, respiratory 24, blood pressure was 112/68, and pulse ox was 97% on 2 L nasal cannula. She did desat to 87% on her baseline 2 L nasal cannula and therefore was admitted to the hospital. CBC on presentation was unremarkable. She did have a mild left shift with 74.6% neutrophilia. Her chemistry panel was unremarkable. Initial troponin was slightly high at 19 but delta was 19 and third troponin was 18. BNP was normal. Chest x-ray showed stable left diaphragmatic elevation with chronic pulmonary scarring. Given her desaturation with exertion she was admitted to the medical floor and treated for acute exacerbation of COPD. By the a.m. of 01/02/2025 she was back to her baseline oxygen at rest and exertion. We did an ambulatory pulse ox and on her home oxygen she was 98% at rest and 96% with exertion. Patient states she was not quite back to her baseline but feeling much better. She does have a nebulizer at home and will continue to use this. We encouraged her to use Mucinex, continue her incentive spirometer and Acapella and she was sent home with a prednisone taper. She is able be discharged home in stable condition on 01/02/2025. She is to follow-up with her nurse healthcare manager as previously directed. She was evaluated by therapy services and there was no need for ongoing physical therapy at the time of discharge. Palliative care referral was considered and she was given information for this at the time of discharge. Discharge diagnoses: Acute exacerbation of COPD secondary to influenza A infection Exertional hypoxia-resolved Generalized weakness Obesity Essential hypertension Hyperlipidemia DM-2 History of tracheostomy with tracheal stenosis History of tobacco abuse Paroxysmal atrial fibrillation History of cor pulmonale Chronic RBBB History of thoracic outlet syndrome Seasonal allergies RLS Fibromyalgia GERD Osteoarthritis Depression Physical Exam Const alert, oriented x3, no apparent distress, no limitations and well nourished; Negative for average body habitus Constitutional Narrative: Obese, older, white female, sitting up in chair at the bedside talking on the phone, on her baseline oxygen at 2 L, no conversational dyspnea General Appearance: cooperative, comfortable, well kempt and well developed Exam Limitations: no limitations Nutritional Appearance: obese HEENT normocephalic, head/scalp atraumatic, hearing grossly normal bilaterally and moist oral mucous membranes HEENT Narrative: No thrush present, Mallampati 3 Eyes EOMs intact bilaterally and conjunctivae normal Eyes Narrative: No scleral icterus Neck supple Neck Narrative: Trachea midline, neck is short thick Resp normal respiratory effort, no retractions, no use of accessory muscles and No clear to auscultation bilaterally Resp Narrative: Very few scattered end expiratory wheezes, no signs of extremis, no conversational dyspnea, stable on home oxygen Auscultation: wheezes; Negative for rales or rhonchi Cardio regular rate, regular rhythm, S1 normal heart sound, S2 normal heart sound, no murmurs, no rub, no gallops and no clicks Extremity no clubbing, cyanosis or edema Extremity Narrative: Pedal pulses are 2+ Skin skin turgor normal and no jaundice Neuro oriented x3, moves all extremities and no focal motor deficits Speech: speech normal Psych affect normal Psych Narrative: Extremely pleasant, eye contact is good and patient interacts appropriately Weight / BMI Weight Weight: 103.5 kg Body Mass Index (BMI) 39.2 ABG / Lab / Microbiology Data 01/02/25 03:43 01/02/25 03:43 Laboratory: Laboratory Results - last 24 hr 01/01/25 17:50: WBC 6.8, RBC 4.19 L, Hgb 12.6, Hct 38.6, MCV 92.1, MCH 30.1, MCHC 32.6, RDW Std Deviation 45.6 H, RDW Coeff of Gil 13.4, Plt Count 175, MPV 10.3, Immature Gran % (Auto) 0.400, Neut % (Auto) 74.6 H, Lymph % (Auto) 7.2 L, [place] % (Auto) 17.1 H, Eos % (Auto) 0.1, Baso % (Auto) 0.6, Absolute Neuts (auto) 5.1, Absolute Lymphs (auto) 0.49 L, Nucleated RBC % 0, Sodium 138, Potassium 3.8, Chloride 103, Carbon Dioxide 22.5, Anion Gap 13, BUN 13, Creatinine 1.05, Estim Creat Clear Calc 54.87, Est GFR (MDRD) Non-Af 55 L, BUN/Creatinine Ratio 12.4, Glucose 92, Hemoglobin A1c 6.2, Calcium 8.7, Troponin T High Sens 19 H, NT pro BNP II 732 01/01/25 18:18: PT 15.1 H, INR 1.2, APTT 30.4, Lactic Acid 1.1 01/01/25 20:23: Troponin T Hi Sens 2 Hr 19 H 01/01/25 21:00: Urine Color Yellow, Urine Clarity Sl. Cloudy, Urine pH 6.0, Ur Specific [place] 1.020, Urine Protein 30 H, Urine Glucose (UA) Normal, Urine Ketones Negative, Urine Occult Blood 10 H, Urine Nitrite Negative, Urine Bilirubin Negative, Urine Urobilinogen Normal, Ur Leukocyte Esterase 25 H, Urine RBC 0 SEEN, Urine WBC 0-5 SEEN, Ur Squamous Epith Cells 0-5 SEEN, Urine Bacteria RARE, Urine Mucus 0 SEEN 01/01/25 22:04: Magnesium 1.8, Troponin T Hi Sens 4Hr 18 H, Vitamin B12 334, TSH 0.725 01/01/25 22:44: Serum Folate 9.11 01/01/25 23:40: POC Glucose 155 H 01/02/25 03:43: WBC 5.2, RBC 3.86 L, Hgb 11.9 L, Hct 36.2 L, MCV 93.8, MCH 30.8, MCHC 32.9, RDW Std Deviation 45.9 H, RDW Coeff of Gil 13.5, Plt Count 166, MPV 10.4, Immature Gran % (Auto) 0.400, Neut % (Auto) 92.1 H, Lymph % (Auto) 5.0 L, [place] % (Auto) 2.3, Eos % (Auto) 0.0, Baso % (Auto) 0.2, Absolute Neuts (auto) 4.8, Absolute Lymphs (auto) 0.26 L, Nucleated RBC % 0, Sodium 140, Potassium 4.5, Chloride 109 H, Carbon Dioxide 21.8, Anion Gap 10, BUN 13, Creatinine 0.90, Estim Creat Clear Calc 63.28, Est GFR (MDRD) Non-Af 67, BUN/Creatinine Ratio 14.1, Glucose 200 H, Calcium 8.2, Phosphorus 3.6, Total Bilirubin 0.36, AST 28, ALT 20, Alkaline Phosphatase 78, Total Protein 5.7 L, Albumin 3.5, Globulin 2.2, Albumin/Globulin Ratio 1.6, Triglycerides 39, Cholesterol 132, LDL Cholesterol, Calc 67, VLDL Cholesterol 8, HDL Cholesterol 57, Cholesterol/HDL Ratio 2.31 01/02/25 06:12: POC Glucose 181 H 01/02/25 11:44: POC Glucose 215 H Microbiology: Microbiology 01/01/25 17:53 Mucosa - Nose SARS-CoV-2, Influenza & RSV (PCR) - Final Influenzae A Radiography Diagnostic Testing: Radiology Impression Chest X-Ray 01/01/25 17:55 IMPRESSION: Stable left diaphragmatic elevation. Pulmonary findings are grossly unchanged when compared to prior examination dating back to 03/24/2023. Reading Location: [id number] D/C Instructions Discharge Diet: Low fat / Low cholesterol Discharge Activity: Return to Normal Activity [place] O2, CPAP, BIPAP Needs Home O2 Discharge instructions: Yes Type of respiratory needs?: Oxygen Oxygen frequency: Continuous Continuous oxygen liters per minute: 2 [place] home with Oxygen: Yes Home O2 MD Review: I have reviewed the oxygen testing, and the patient qualifies for home oxygen equipment and portability. The patient is mobile in the home and the community. Meaningful Use Info Meaningful Use Meaningful Use Diagnoses (Choose all that apply): None applicable Ischemic Stroke Statin Dosing Therapy Reference: STATIN DOSE THERAPY REFERENCE: * Patients > 75 years receive moderate or high dose statin therapy. * Patients 75 years or YOUNGER should receive HIGH intensity statin dose unless contraindicated. You will be required to document reason for non-treatment if statin daily dose does not meet guidelines. HIGH DOSE STATIN THERAPY DAILY Atorvastatin > than or = to 40 mg Rosuvastatin > than or = to 20 mg Amlodipine + Atorvastatin > than or = to 2.5/40 mg Ezetimibe + Simvastatin 10/80 mg Simvastatin 80mg Discharge Plan Admission Admit Date/Time: 01/01/25 21:51 Primary Reason for Your Visit: Shortness of breath Attending Provider: Tish Stokes Primary Care Provider: Aixa Magdaleno Consulting Providers: Sunil Muir Instructions Additional Instructions / Restrictions: 1. Please use nebulizer at least 3 times daily for the next 3 to 5 days 2. Continue incentive spirometry and Acapella after discharge 3. Would recommend Mucinex 1200 mg p.o. twice daily for the next 7 days 4. Please follow-up with your nurse healthcare manager as previously directed Discharge Orders/Prescriptions Prescriptions: New prednisone 10 mg tablet 10 mg PO DAILY Qty: 30 0RF Rx Instructions: 4 tablets x 3 days, 3 tablets x 3 days, 2 tablets x 3 days, 1 tablet x 3 days and stop Continued aspirin [Adult Low Dose Aspirin] 81 mg tablet,delayed release (DR/EC) 81 mg PO DAILY albuterol sulfate 90 mcg/actuation HFA aerosol inhaler 2 puff inhalation Q6H PRN (Reason: shortness of breath or wheezing) Qty: 8.5 1RF albuterol sulfate 2.5 mg /3 mL (0.083 %) solution for nebulization 2.5 mg continuous nebulization Q4H PRN (Reason: sob) Patient Comments: USE 1 VIAL IN NEBULIZER EVERY 4 HOURS NEEDED Trelegy Ellipta 200-62.5-25 mcg blister with device 1 inh inhalation DAILY emollient [Vanicream] Cream topical [place] Saline Gel 1 applic topical HS PRN (Reason: nasal gel) (DME) Accu-Chek SmartView Test Strip Strip See Rx Instructions .Route Qty: 300 1RF Rx Instructions: use three times daily to monitor blood glucose for type 2 DM naproxen sodium [Aleve] 220 mg capsule 220 mg PO Q12H PRN (Reason: pain) atorvastatin [Lipitor] 40 mg tablet 40 mg PO DAILY Qty: 90 4RF fluticasone propionate 50 mcg/actuation [place],Suspension 2 spray INTRANASAL DAILY loratadine 10 mg Capsule 10 mg PO DAILY insulin glargine 100 unit/mL cartridge 32 unit SUBCUT QPM baclofen 10 mg tablet 10 mg PO TID PRN (Reason: pain) (DME) blood-glucose meter [OneTouch Verio Flex meter] Misc See Rx Instructions .Route Qty: 1 0RF Rx Instructions: As directed azelastine 137 mcg (0.1 %) spray,non-aerosol 1 spray intranasal BID PRN (Reason: congestion) Qty: 30 0RF duloxetine 40 mg capsule,delayed release(DR/EC) 40 mg PO DAILY Qty: 90 0RF (DME) OneTouch Verio test strips Strip See Rx Instructions .Route Qty: 100 3RF Rx Instructions: 3 times daily esomeprazole magnesium 40 mg capsule,delayed release(DR/EC) 40 mg PO BID Qty: 180 1RF lisinopril 5 mg tablet 5 mg PO DAILY Qty: 90 0RF montelukast 10 mg tablet 10 mg PO QHS Qty: 90 1RF potassium chloride [Klor-Con M20] 20 mEq tablet,ER particles/crystals 20 meq PO DAILY Qty: 90 0RF metoprolol succinate [Toprol XL] 50 mg tablet extended release 24 hr 50 mg PO DAILY Qty: 90 3RF insulin glargine 100 unit/mL (3 mL) insulin pen 32 unit subcut QPM Qty: 15 0RF furosemide 20 mg tablet 40 mg PO BID Qty: 180 0RF (DME) insulin syringe-needle U-100 [BD Insulin Syringe Ultra-Fine] 0.3 mL 31 gauge x 5/16 syringe See Rx Instructions .Route Qty: 50 0RF Rx Instructions: As directed Referrals / Follow Up: Aixa Magdaleno MD [Primary Care Provider] - Disposition Disposition (needs filled in before D/C Order can be placed): Home, Self Care Charges/Coding Visit Charges Inpatient E&M: 97427 Disch Hosp >30min
--- NOTE | 2025-01-02 14:40 | CASEMGMT ---
No therapy recommended, pt does not qualify for increased oxygen rx. TC to [facility] Rx, requested meds to be delivered to the room.
--- NOTE | 2025-01-02 16:11 | CHAPLAIN ---
Type of Pastoral Visit ___ Initial Visit ___ Follow-up Visit ___ On-call Visit ___ General Patient Visit ___ Spiritual Assessment ___ Family Conference ___ Bereavement ___ Rapid Response ___ Code Blue ___ Other (describe below) Pastoral Care Referral From ___ Patient ___ Family ___ Nurse ___ Physician ___ Machine Stone Polisher ___ Jail Keeper ___ Other (describe below) Sacrament/Intervention ___ Active listening ___ Anointing ___ Sabianism ___ Bereavement ___ Communion ___ Rylie exploration ___ ___ Life review ___ Prayer ___ Reconciliation ___ Sacrament of Sick ___ Supportive presence ___ Wedding ___ Other (describe below) Pastoral Comments two attempts to visit this patient were unsuccessful due to other care taking place; later found out that the pt was discharged
== END 2025-01-02 15:24 | disposition home or self-care (01) | DRG 191 ==
LOC: ED 21:18 → MS3 22:29
PROVIDERS: Admitting Provider Internal Medicine; Emergency Provider Emergency Medicine; PCP Internal Medicine; Visit Provider Internal Medicine
DX: J44.1 Chronic obstructive pulmonary disease with (acute) exacerbation (principal); J96.11 Chronic respiratory failure with hypoxia; I27.81 Cor pulmonale (chronic); E11.42 Type 2 diabetes mellitus with diabetic polyneuropathy; I10 Essential (primary) hypertension; E66.9 Obesity, unspecified; J10.1 Influenza due to other identified influenza virus with other respiratory manifestations; G47.33 Obstructive sleep apnea (adult) (pediatric); E78.00 Pure hypercholesterolemia, unspecified; I45.10 Unspecified right bundle-branch block; M79.7 Fibromyalgia; M17.10 Unilateral primary osteoarthritis, unspecified knee; Z79.4 Long term (current) use of insulin; K21.9 Gastro-esophageal reflux disease without esophagitis; E11.65 Type 2 diabetes mellitus with hyperglycemia; J20.8 Acute bronchitis due to other specified organisms; J39.8 Other specified diseases of upper respiratory tract; Z79.51 Long term (current) use of inhaled steroids; Z90.710 Acquired absence of both cervix and uterus; R53.1 Weakness; Z87.891 Personal history of nicotine dependence; Z79.82 Long term (current) use of aspirin; Z68.37 Body mass index [BMI] 37.0-37.9, adult; Z82.49 Family history of ischemic heart disease and other diseases of the circulatory system; Z79.899 Other long term (current) drug therapy; Z88.1 Allergy status to other antibiotic agents; Z79.02 Long term (current) use of antithrombotics/antiplatelets; Z79.52 Long term (current) use of systemic steroids; Z99.81 Dependence on supplemental oxygen; Z91.199 Patient's noncompliance with other medical treatment and regimen due to unspecified reason
CPT/HCPCS: 36415; 71046; 80048; 80053; 80061; 81001; 82607; 82652; 82746; 82962; 83036; 83605; 83735; 83880; 84100; 84443; 84484; 85025; 85610; 85730; 87040; 87086; 87088; 87631; 93005; 94640; 94668; 97161; 97166; 97802; 99252; 99285; A4216; G0463

== ENCOUNTER → 2025-03-15 | Outpatient (CLI) | payer MEDICARE, SELFPAY ==
[2025-03-15 12:20] LABS: Absolute Lymphocyte Count 1.38 X10^3/uL (0.83-4.51); Absolute Neutrophil Count 6.9 X10^3/uL (2.0-7.7); Basophil# 0.03 X10^3/uL; Basophil% 0.3 % (0-1); Eosinophil# 0.24 X10^3/uL; Eosinophils% 2.6 % (0-5); Hematocrit 39.9 % (37-47); Hemoglobin 13.2 g/dL (12.0-15.0); Lymphocyte # 1.38 X10^3/ul (0.83-4.51); Lymphocyte % 14.8 % (19-41); Mean Corp Hgb Conc 33.1 g/dL (32-36); Mean Corpuscular Hgb 29.9 pg (27.0-32.0); Mean Corpuscular Volume 90.3 fL (81-99); Mean Platelet Vol. 9.8 fl (6.2-12.0); Monocyte# 0.73 X10^3/uL; Monocyte% 7.8 % (0-10); NRBC Flagged by Analyzer 0 % (0-5); Neutrophil # 6.89 X10^3/uL (2.7-7.7); Neutrophil % 73.9 % (47-70); Platelet Count 339 K/mm3 (150-450); RBC Distribution Width CV 12.8 % (11.6-14.6); RBC Distribution Width SD 42.8 fl (35.1-43.9); Red Blood Count 4.42 M/mm3 (4.2-5.4); White Blood Count 9.3 K/mm3 (4.4-11.0)
[2025-03-15 12:54] LABS: Hemoglobin A1c 6.5 % (<=5.6)
[2025-03-15 13:13] LABS: ALB/GLOB Ratio 1.4 RATIO (0.9-2.4); AST(SGOT) 14 U/L (<=31); Alanine Aminotransfer ALT/SGPT 9 U/L (<=34); Alkaline Phosphatase 79 U/L (35-104); Anion Gap 13 (5-15); BUN 19 mg/dL (4-19); BUN/Creat Ratio 13.5 RATIO (10-20); Calcium,Total 9.1 mg/dL (7.6-11.0); Carbon Dioxide 23.5 mmol/L (21.0-32.0); Chloride 102 mmol/L (98-108); Cholesterol 287 mg/dL (<=200); Creatinine, Serum 1.41 mg/dL (0.70-1.20); EST Glomerular Filtration Rate 39 (>60); Ferritin 143 ng/mL (22-378); Globulin 2.8 g/dL (2.2-4.2); Glucose 120 mg/dL (70-99); High Density Lipoprotein 50 mg/dL; Low Density Lipoprotein Calc. 199 mg/dL; Potassium 4.3 mmol/L (3.3-5.1); Protein, Total 6.8 g/dL (5.9-8.4); Sodium Level 139 mmol/L (133-145); Total Bilirubin 0.44 mg/dL (0.00-1.30); Triglycerides 194 mg/dL; Very Low Density Lipoprotein 39 mg/dL (5-40)
[2025-03-15 13:34] LABS: Iron 55 ug/dL (50-170); Iron Binding Capacity,Total 243 ug/dL (250-450); Iron Binding Capacity,Unsat 188 ug/dL (228-428)
== END | disposition home or self-care (01) ==
LOC: VSLAB 11:35
PROVIDERS: PCP Nurse Practitioner Family; Visit Provider Nurse Practitioner Family
DX: K62.5 Hemorrhage of anus and rectum (principal); E11.9 Type 2 diabetes mellitus without complications; E78.5 Hyperlipidemia, unspecified
CPT/HCPCS: 36415; 80053; 80061; 82728; 83036; 83540; 83550; 85025

== ENCOUNTER → 2025-03-16 | Outpatient (CLI) | payer MEDICARE, SELFPAY ==
--- OUTSIDE RECORDS SUMMARY | 2025-03-16 10:42 | XMS RPT_ITS | CCD ---
Author Organization [facility] Care Team Providers Care Gill Box Tender Name Role Phone Tavallaee, Gregg Monazzam Unavailable [phone] ALEXANDRU WEINER Attending Unavailable TAVALLAEE, GREGG MONAZZAM Primary Care Unav ailable WEINER, ALEXANDRU KWAN Attending Unavailable TAVALLAEE, GREGG MONAZZAM Primary Care Unav ailable WEINER, ALEXANDRU KWAN Attending Unavailable TAVALLAEE, GREGG MONAZZAM Primary Care Unav ailable WEINER, ALEXANDRU KWAN Attending Unavailable TAVALLAEE, GREGG MONAZZAM Primary Care Unav ailable WEINER, ALEXANDRU KWAN Attending Unavailable TAVALLAEE, GREGG MONAZZAM Primary Care Unav ailable WEINER, ALEXANDRU KWAN Attending Unavailable TAVALLAEE, GREGG MONAZZAM Primary Care Unav ailable Tavallaee, Gregg Monazzam Primary Care Provide r Dennis Tinsley Unavailable Unavailable Tavallaee, Gregg Unavailable Unavailable Tavallaee, Gregg M Unavailable Unavailable Wanda Simpson Unavailable Unavailable Tavallaee, Gregg Monazzam Primary Care Provide r Tavallaee, Gregg M Unavailable [phone] Unavailable Unavailable Unavailable Unavailable Unavailable Unavailable Dr. Gregg Miller Primary Care Provider [phone] Edith Baugh Attending Provider Unavailable Dr. Gregg Miller Referring Provider Dr. Domenic Humphries Attending Provider Dr. Mariola Magdaleno Attending Provider [phone] Unavailable Primary Care Provider Unavailabl e Emerson, Dr. Medrano Attending Provider [phone] Dr. Mariola Magdaleno Primary Care Provider Pao Magdaleno MD Primary Care Provider Dr. Mariola Magdaleno Referring Provider [phone]) Dr. Marcela Norman Other Provider Dr. Mariola Magdaleno Primary Care Provider Dr. aMriola Magdaleno Referring Provider 1(330) Dr. Marcela Norman Attending Provider [phone] Emerson, Dr. Medrano Other Provider Dr. Mariola Magdaleno Attending Provider [phone] Mariola Magdaleno MD Primary Care Provider Unava ilDr. Mariola Jones Primary Care Provider Dr. Mariola Magdaleno Referring Provider 1([phone]) Dr. Kermit Hicks Attending Provider [phone] Dr. Gregg Miller Referring Provider aSmmy REJECTED ITEMS CLERK, REJECTED ITEMS CLERKCaraC Shakira Attending Provider Dr. Mariola Magdaleno Attending Provider [phone] Gregg Miller Primary Care Unavailable WANDA SIMPSON Attending Unava ilWANDA Grajeda Attending Unava ilable Gregg Miller Primary Care Unavailable Khris, Dr. Mello Lyles Referring Unav ailable Khris, Dr. Mello Lyles Attending Unav ailable Khris, Dr. Mello Lyles Admitting Unav ailable Gregg Miller Primary Care Unavailable Dr. Mariola Magdaleno Primary Care Provider Dr. Mariola Magdaleno Referring Provider [phone] Mariola Magdaleno MD Primary Care Provider [phone] Dr. Mariola Magdaleno Primary Care Provider Dr. Mariola Magdaleno Referring Provider [phone] Sammy REJECTED ITEMS CLERK, ELISEO Rosenberg Attending Provider Dr. Mariola Magdaleno Attending Provider [phone] Mariola Magdaleno MD Primary Care Provider [phone] SHARLA MARIOLA G Referring Unavailable SHARLA, MARIOLA G Primary Care Unavailable TARA KHOURY Attending Unavailable SHARLA, MARIOLA G Primary Care Unavailable TARA KHOURY Referring Unavailable SHARLA, MARIOLA G Primary Care Unavailable TARA KHOURY Referring Unavailable TARA KHOURY Attending Unavailable SHARLA, MARIOLA G Primary Care Unavailable TARA KHOURY Referring Unavailable Dr. Mariola Magdaleno MD Primary Care Provider [phone] Dr. Brent Rico DO Emergency Provider de Scott WHEATLEY, Dr. Barber Admit Provider Unavail able Muir DO, Dr. Barber Attending Provider Unav ailable Dr. Mariola Magdaleno MD Primary Care Provider [phone] Dr. Brent Rico DO Emergency Provider de Scott WHEATLEY, Dr. Barber Admit Provider Unavail able Muir DO, Dr. Barber Other Provider Unavail able Dr. Tish Stokes DO Attending Provider Dr. Tish Stokes DO Other Provider [place], Mariola Primary Care Unavailable Rafal Salinas Attending Unavailable Rafal Salinas Referring Unavailable Sammy SMITH, Shakira Attending Unavailable [place], Mariola Primary Care Unavailable [place], Mariola Referring Unavailable Rafal Salinas Attending Unavailable [place], Mariola Primary Care Unavailable Sharla, Mariola Referring Unavailable Sunil Muir Admitting Unavailable Sunil Muir Consulting Unavailable Sunil Muir Attending Unavailable [place], Mariola Primary Care Unavailable Tish Stokes Attending Unavailable Tish Stokes Consulting Unavailable [place], Mariola Attending Unavailable [place], Mariola Referring Unavailable Sharla, Mariola Primary Care Unavailable Sharla, Mariola Primary Care Unavailable Sharla, Mariola Attending Unavailable Sharla, Mariola Referring Unavailable Sharla, Mariola Primary Care Unavailable Tish Stokes Attending Unavailable Sunil Muir Admitting Unavailable Sunil Muir Consulting Unavailable [place], Mariola Primary Care Unavailable Estela Marie Attending Unavailable Estela Marie Referring Unavailable Allergies Allergy Classification Reported Allergen(s) Allergy Type Date of Onset Reaction(s) Facility Mold Extract (3 sources) Mold Extract Drug Allergy Other [facility] Work Phone: Penicillins (antibiotic) (3 sources) Penicillins; Translations: [Penicillins] Drug Allergy Hives [facility] Work Phone: (20 sources) Penicillins; Translations: [PENICILLINS] Propensity to adverse reactions to drug 08-08-20 14 Hives, Unknown [facility] Work Phone: (20 sources) House dust mite Allergy to substance (finding) Other [facility] Work Phone: (20 sources) Mold Extract; Translations: [MOLD] Drug Allergy 04-09-20 22 Unknown [facility] (20 sources) Penicillins; Translations: [Penicillins] Allergy to drug (finding) Hives [facility] [address] Work Phone: (20 sources) Tree Allergy to substance (finding) 04-09-20 22 Other, nasal congestion and watery eyes [facility] [address] Work Phone: (20 sources) Acetaminophen / HYDROcodone; Translations: [Vicodin TABS] Drug Allergy 05-13-20 22 Unknown [facility] (20 sources) Meperidine; Translations: [MEPERIDINE] Drug Allergy 03-20-20 22 Itching [facility] (2 sources) Acetaminophen Drug Allergy 04-09-20 22 Itching [facility] Work Phone: (20 sources) house dust allergenic extract; Translations: [HOUSE DUST] Drug Allergy 04-09-20 Unknown [facility] (2 sources) HYDROcodone Drug Allergy 04-09-20 Itching [facility] Work Phone: (15 sources) Penicillins Propensity to adverse reactions to drug 05-13-20 Unknown [facility] (20 sources) Tree and shrub pollen; Translations: [TREE AND SHRUB POLLEN] Propensity to adverse reactions to drug 05-13-20 Unknown [facility] Comment on above: TREES = nasal conges tion and watery eyes (15 sources) Grass pollen; Translations: [GRASS POLLEN] Drug Allergy 05-14-20 Shortness of Breath [facility] (5 sources) cat dander; Translations: [cat dander] Allergy to substance 01-02-20 Inflammation of lung [facility] (1 source) Acetaminophen / HYDROcodone; Translations: [HYDROCODONE-ACET AMINOPHEN] Drug Allergy 05-13-20 [facility] [place] [facility] (1 source) house dust allergenic extract Drug Allergy 01-02-20 [facility] (1 source) Meperidine Drug Allergy 01-02-20 [facility] (1 source) Penicillins Drug allergy (disorder) 01-02-20 [facility] Medications Current Medications Medication Drug Class(es) Dates Sig (Normalized) Sig (Original) [id number] 200 actuat albuterol 0.09 mg/actuat metered dose inhaler (20 sources) beta2-Adrenergic Agonist Start: 12-17-2024 take 2 puff(s) by inhalation every four hours as needed albuterol HFA (PROVENTIL HFA, VENTOLIN HFA) 90 mcg/actuation inhaler Inhale 2 Puffs as instructed every 4 hours as needed. 3 Each 2 12/17/2024 Active Start: 09-16-2022 Albuterol Sulf ate 2.5 mg /3 mL (0.083 %) solution for nebulization Active 2.5 mg continuous nebulization Q4H as needed for sob September 16, 2022 1:00am Start: 09-16-2022 Albuterol Sulf ate 2.5 mg /3 mL (0.083 %) solution for nebulization Active 2.5 mg continuous nebulization September 16, 2022 1:00am Start: 05-14-2022 take 2.5 mg by inhal ation every four hours as needed for chronic obstructive pulmonary disease and chronic obstructive pulmonary disease albuterol (PROVENTIL) 2.5 mg /3 mL (0.083 %) nebulizer solution Indications: Chronic obstructive pulmonary disease, unspecified COPD type (HCC) Use 3 mL via nebulizer every 4 hours as needed. 120 Vial 5 05/14/2022 Active Start: 04-02-2022 End: 04-20-2022 Albuterol Sulfate 90 mcg/act uation HFA aerosol inhaler Active 2 NMA INHALATION EVERY 6 HOURS as needed for shortness of breath or wheezing 8.April 20, 2022 4:09pm Start: 04-02-2022 End: 04-20-2022 take 1 puff(s) by inhalation every six hours Albuterol Sulfate Active 2 PUFF INHALATION EVERY 6 HOURS 8.April 20, 2022 4:09pm take 2 puff(s) by in halation four times daily Albuterol Sulfate HFA 108 (90 Base) MCG/ACT Inhalation Aerosol Solution INHALE 2 PUFFS FOUR TIMES DAILY DIRECTED. Quantity: 1 Refills: 3 Ordered: 11-Jun-2020 Gregg Miller MD Active End: 05-14-2022 take 2.5 mg by inhalation every six hours as needed albuterol (PROVENTIL) 2.5 mg /3 mL (0.083 %) nebulizer solution Inhale 2.5 mg as instructed every 6 hours as needed. 0 05/14/2022 Discontinued take 2 puff(s) by in halation four times daily Albuterol Sulfate HFA 108 (90 Base) MCG/ACT Inhalation Aerosol Solution INHALE 2 PUFFS FOUR TIMES DAILY DIRECTED. Quantity: 1 Refills: 3 Ordered: 11-Jun-2020 Gregg Miller MD Active take 2 puff(s) by in halation four times daily Albuterol Sulfate HFA 108 (90 Base) MCG/ACT Inhalation Aerosol Solution INHALE 2 PUFFS FOUR TIMES DAILY DIRECTED. Quantity: 1 Refills: 3 Gregg Miller MD Active 8.5 GM Inhaler take 2 puff(s) by in halation four times daily ProAir HFA 108 (90 Base) MCG/ACT Inhalation Aerosol Solution INHALE 2 PUFFS FOUR TIMES DAILY DIRECTED. Refills: 0 Active 8.5 GM Inhaler ALBUTEROL INHL I nhale . 0 Active End: 09-06-2017 albuterol 90 mcg/actuation i nhaler Inhale 2 puffs every 6 (six) hours as needed for wheezing. 09/06/2017 Discontinued Comment on above: Inhale 2.5 mg as ins tructed every 6 hours as needed. Use 3 mL via nebuliz er every 4 hours as needed. aspirin 81 mg delayed release oral tablet (20 sources) Platelet Aggregation Inhibitor, Nonsteroidal Anti-inflammatory Drug Start: 04-02-2022 Aspirin (Adult Low Dose Aspirin) 81 mg tablet,delayed release (DR/EC) Active 81 mg PO DAILY April 02, 2022 12:00am Start: 03-20-2022 End: 04-02-2022 take 1 capsule by mouth once daily Aspirin 81 mg Capsule Discontinued 81 mg PO DAILY March 20, 2022 12:00am April 02, 2022 10:58am Comment on above: Take 81 mg by mouth once daily. azelastine hydrochloride 0.137 mg/actuat metered dose nasal spray (20 sources) Histamine-1 Receptor Antagonist Start: 04-04-2024 Azelastine 137 mcg (0.1 %) spray,non-aerosol Active 1 NMA INTRANASAL TWICE A DAY as needed for congestion April 04, 2024 3:59pm Start: 02-28-2023 End: 04-04-2024 Azelastine 137 mcg (0.1 %) aerosol,spray Discontinued 1 NMA INTRANASAL February 28, 2023 12:00am April 04, 2024 4:00pm Start: 02-28-2023 Azelastine Act james 1 SPRAY INTRANASAL February 28, 2023 12:00am Start: 02-17-2023 End: 09-19-2023 take 1 spray(s) nasal route twice daily azelastine 0.1% nasal spray Indications: Seasonal allergies USE 1 SPRAY(S) IN EACH NOSTRIL TWICE DAILY 30 mL 11 09/19/2023 Active Comment on above: USE 1 SPRAY(S) IN EA CH NOSTRIL TWICE DAILY Blood-Glucose Meter (Accuri Cytometersuch Verio Flex Meter) misc (6 sources) Start: 03-19-2024 Blood-Glucose Meter (Onetouch Verio Flex Meter) misc Active 0 .Route 1 March 19, 2024 12:49pm As directed Start: 01-04-2024 End: 03-19-2024 Blood-Glucose Meter (Onetouc h Verio Flex Meter) misc Discontinued 0 .Route 1 January 04, 2024 12:00am March 19, 2024 12:49pm As directed Start: 01-04-2024 Blood-Glucose Meter (Onetouch Verio Flex Meter) misc Active 0 .Route 1 January 04, 2024 12:00am As directed Budesonide (4 sources) Corticosteroid BUDESONIDE INHL Inhale . 0 Active DULoxetine 40 mg delayed release oral capsule (20 sources) Serotonin and Norepinephrine Reuptake Inhibitor Start: take 1 capsule by mouth once daily Duloxetine 40 mg capsule,delayed release(DR/EC) Active 40 mg PO DAILY September 05, 2024 5:16pm Start: 05-02-2024 End: 09-05-2024 take 2 capsules by mouth once daily Duloxetine 20 mg capsule,delayed release(DR/EC) Discontinued 40 mg PO DAILY May 02, 2024 1:43pm September 05, 2024 5:17pm Start: 12-28-2022 End: 05-02-2024 take 1 capsule by mouth once daily Duloxetine 20 mg capsule,delayed release(DR/EC) Discontinued 20 mg PO DAILY March 19, 2024 12:49pm May 02, 2024 1:44pm Start: 12-28-2022 End: 04-11-2023 Duloxetine 20 mg capsule,del ayed release(DR/EC) Discontinued NMA PO December 28, 2022 12:00am April 11, 2023 10:23am Start: 11-26-2021 take 2 capsules by m outh once daily DULoxetine HCl - 20 MG Oral Capsule Delayed Release Particles take 2 capsules daily Quantity: 180 Refills: 3 Ordered: 12-Oct-2022 Paul TAO, Gregg Start : 26-Nov-2021 Active THIS IS IN PLACE OF DULOXETINE 40MG Start: 02-25-2021 End: 04-09-2022 take 1 capsule by mouth twice daily Duloxetine 40 mg capsule,delayed release(DR/EC) Discontinued 40 mg PO TWICE A DAY April 02, 2022 12:00am April 09, 2022 11:21am Start: 02-25-2021 take 1 capsule by [facility] once daily DULoxetine HCl - 20 MG Oral Capsule Delayed Release Particles TAKE 1 CAPSULE Daily Quantity: 90 Refills: 3 Ordered: 25-Aug-2021 Gregg Miller MD Start : 25-Feb-2021 Active Comment on above: Take 40 mg by mouth once daily. Emollient (Vanicream) cream (6 sources) Start: 02-28-2023 Emollient (Vanicream) cream Active NMA TOPICAL February 28, 2023 12:00am Start: 02-28-2023 Emollient (Van icream) cream Active APPLIC TOPICAL February 28, 2023 12:00am fluticasone propionate 0.05 mg/actuat metered dose nasal spray (20 sources) Corticosteroid Start: 04-01-2023 take 1 spray(s) nasal route once daily fluticasone (FLONASE) 50 mcg/actuation nasal spray Indications: Post-nasal drip Use 1 [place] in each nostril once daily. 1 Each 5 04/01/2023 Active Start: 03-20-2022 End: 04-01-2023 Fluticasone Propionate 50 mc g/actuation [place],Suspension Active 2 NMA INTRANASAL DAILY March 20, 2022 12:00am Start: 03-20-2022 Fluticasone Pr opionate Active 2 SPRAY INTRANASAL DAILY March 20, 2022 12:00am Comment on above: Fluticasone Propiona te Active 2 SPRAY INTRANASAL DAILY March 20, 2022 12:00am Use 1 [place] in each nostril once daily. Fluticasone-Umeclidin -Vilanter (4 sources) Start: 04-11-2023 Oqkwglqwwhv-Nufbkehcy-Z ilanter (Trelegy Ellipta) 200-62.5-25 mcg blister with device Active 1 NMA INHALATION DAILY April 11, 2023 12:00am Start: 04-11-2023 Fluticasone-Um eclidin-Vilanter (Trelegy Ellipta) 200-62.5-25 mcg blister with device Active 1 INH INHALATION DAILY April 11, 2023 12:00am zoyfcudlnyj-fopiuzjyu-hfqvpn er (TRELEGY ELLIPTA) 200-62.5-25 mcg inhalation powder (16 sources) Start: 12-17-2024 End: 12-17-2025 take 1 puff(s) by inhalation once daily wqpcczemjgz-eudpbbqwb-ikwxetec (TRELEGY ELLIPTA) 200-62.5-25 mcg inhalation powder Indications: Asthma-COPD overlap syndrome (HCC) Inhale 1 Puff as instructed once daily. 180 Each 2 12/17/2024 12/17/2025 Active Start: 06-18-2024 End: 12-17-2024 take 1 puff(s) by inhalation once daily bkewlvtaujw-urixbszfu-zwiqzsfo (TRELEGY ELLIPTA) 200-62.5-25 mcg inhalation powder Indications: Asthma-COPD overlap syndrome (HCC) Inhale 1 Puff as instructed once daily. 180 Each 3 06/18/2024 12/17/2024 Discontinued Start: 06-18-2024 End: 06-18-2025 take 1 puff(s) by inhalation once daily roqmtfzydcx-zpqcuumae-ekpzgfgr (TRELEGY ELLIPTA) 200-62.5-25 mcg inhalation powder Indications: Asthma-COPD overlap syndrome (HCC) Inhale 1 Puff as instructed once daily. 180 Each 3 06/18/2024 06/18/2025 Active Start: 12-09-2023 End: 06-18-2024 take 1 puff(s) by inhalation once daily wlmtbhmouso-ofzyuldkw-ucsmvrpm (TRELEGY ELLIPTA) 200-62.5-25 mcg inhalation powder Indications: Asthma-COPD overlap syndrome (HCC) Inhale 1 Puff as instructed once daily. 180 Each 3 12/09/2023 06/18/2024 Discontinued Start: 12-09-2023 End: 12-08-2024 take 1 puff(s) by inhalation once daily nrilbzgayxb-wrvzsmreo-vwdkohhu (TRELEGY ELLIPTA) 200-62.5-25 mcg inhalation powder Indications: Asthma-COPD overlap syndrome (HCC) Inhale 1 Puff as instructed once daily. 180 Each 3 12/09/2023 12/08/2024 Active Start: 09-19-2023 End: 12-09-2023 take 1 puff(s) by inhalation once daily tpcbffkgslg-cycafuyug-judwozyx (TRELEGY ELLIPTA) 200-62.5-25 mcg inhalation powder Indications: Asthma-COPD overlap syndrome (HCC) Inhale 1 Puff as instructed once daily. 1 Each 09/19/2023 12/09/2023 Discontinued Start: 09-19-2023 take 1 puff(s) by inhalation once daily ljqqlzhyanl-bwuarclth-morhuxso (TRELEGY ELLIPTA) 200-62.5-25 mcg inhalation powder Indications: Asthma-COPD overlap syndrome Inhale 1 Puff as instructed once daily. 1 Each 09/19/2023 Active Start: 03-18-2023 End: 09-19-2023 take 1 puff(s) by inhalation once daily xidogzqduxs-gkliyprjy-iqnfsutl (TRELEGY ELLIPTA) 200-62.5-25 mcg inhalation powder Indications: Asthma-COPD overlap syndrome Inhale 1 Puff as instructed once daily. 1 Each 0 03/18/2023 09/19/2023 Discontinued Start: 03-18-2023 take 1 puff(s) by inhalation once daily etytzcjtfwt-vekfrrzaa-slazcsuk (TRELEGY ELLIPTA) 200-62.5-25 mcg inhalation powder Indications: Asthma-COPD overlap syndrome Inhale 1 Puff as instructed once daily. 1 Each 0 03/18/2023 Active Start: 03-18-2023 take 1 puff(s) by inhalation once daily vvfnrbibrcy-dhuqzueij-qhysnwgy (TRELEGY ELLIPTA) 200-62.5-25 mcg inhalation powder Indications: Asthma-COPD overlap syndrome (HCC) Inhale 1 Puff as instructed once daily. 1 Each 0 03/18/2023 Active Comment on above: Inhale 1 Puff as ins tructed once daily. 3 ml insulin glargine 100 unt/ml pen injector (20 sources) Insulin Analogue Start: 10-23-2024 Insulin Glargine 100 unit/mL (3 mL) insulin pen Active 32 U SC EVERY EVENING October 23, 2024 1:00am Start: 11-08-2023 Insulin Glargi ne Active 32 UNIT SC EVERY EVENING November 08, 2023 3:45pm Start: 04-02-2022 inject 34 [IU] by jenkins bcutaneous injection once daily at bedtime insulin glargine (LANTUS) 100 unit/mL injection Inject 34 Units subcutaneously daily at bedtime. 04/02/2022 Active Start: 04-02-2022 insulin glargi ne (LANTUS) 100 unit/mL injection Insulin Glargine Active 50 UNIT SC EVERY EVENING April 02, 2022 11:01am 0 04/02/2022 Active Start: 04-02-2022 End: 11-08-2023 Insulin Glargine Discontinue d 36 UNIT SC EVERY EVENING April 02, 2022 11:01am November 08, 2023 3:45pm Start: 04-02-2022 Insulin Glargi ne Active 36 UNIT SC EVERY EVENING April 02, 2022 10:01am Start: 04-02-2022 Insulin Glargi ne Active 36 UNIT SC EVERY EVENING April 02, 2022 11:01am Start: 04-02-2022 Insulin Glargi ne Active 50 UNIT SC EVERY EVENING April 02, 2022 11:01am Comment on above: Insulin Glargine Act james 50 UNIT SC EVERY EVENING April 02, 2022 11:01am Inject 34 Units subc utaneously daily at bedtime. Insulin Glargine (Lantus U-100 Insulin) 100 unit/mL Cartridge (16 sources) Start: 03-20-2022 Insulin Glargine (Lantus U-100 Insulin) 100 unit/mL Cartridge Active 36 UNIT SC EVERY EVENING March 20, 2022 2:23am Start: 03-20-2022 End: 04-02-2022 Insulin Glargine (Lantus U-1 00 Insulin) 100 unit/mL Cartridge Discontinued 36 U SC EVERY EVENING March 20, 2022 12:00am April 02, 2022 11:07am Start: 03-20-2022 End: 04-02-2022 Insulin Glargine (Lantus U-1 00 Insulin) 100 unit/mL Cartridge Discontinued 36 UNIT SC EVERY EVENING March 19, 2022 11:00pm April 02, 2022 10:07am Start: 03-20-2022 End: 04-02-2022 Insulin Glargine (Lantus U-1 00 Insulin) 100 unit/mL Cartridge Discontinued 36 UNIT SC EVERY EVENING March 20, 2022 12:00am April 02, 2022 11:07am Insulin Glargine 100 unit/mL cartridge (4 sources) Start: 11-08-2023 Insulin Glargi ne 100 unit/mL cartridge Active 32 U SC EVERY EVENING November 08, 2023 3:45pm Start: 04-02-2022 End: 11-08-2023 Insulin Glargine 100 unit/mL cartridge Discontinued 36 U SC EVERY EVENING April 02, 2022 11:01am November 08, 2023 3:45pm 200 actuat ipratropium bromide 0.017 mg/actuat metered dose inhaler (7 sources) Anticholinergic take 2 puff(s) by inhalation four times daily ipratropium (ATROVENT HFA) 17 mcg/actuation inhaler Inhale 2 puffs 4 (four) times a day. 0 Active loratadine 10 mg oral capsule (20 sources) Start: take 1 capsule by mouth once daily Loratadine 10 mg Capsule Active 10 mg PO DAILY March 20, 2022 12:00am take 1 tablet by hanna th once daily Loratadine 10 MG Oral Tablet TAKE 1 TABLET DAILY. Quantity: 0 Refills: 0 Ordered: 01-Nov-2019 DO Active End: 09-06-2017 LORATADINE ORAL Take by mout h. 09/06/2017 Discontinued LORATADINE ORAL Take by mouth. Active Comment on above: Take 10 mg by mouth. Take 10 mg by mouth once daily. lovastatin (7 sources) HMG-CoA Reductase Inhibitor LOVA STATIN ORAL Take by mouth. 0 Active LOVASTATIN ORAL Take by mouth. Active naproxen sodium 220 mg oral capsule (2 sources) Nonsteroidal Anti-inflammatory Drug Start: 05-02-2024 take 1 capsule by mouth every twelve hours as needed for pain Naproxen Sodium (Aleve) 220 mg capsule Active 220 mg PO Q12H as needed for pain May 02, 2024 12:00am OXYGEN, HOME THERAPY, (10 sources) OXYGEN, HOME THERAPY, 2 L/min by Nasal Cannula route continuous. Active OXYGEN, HOME THE RAPY, 2 L/min by Nasal Cannula route continuous. 0 Active Comment on above: 2 L/min by Nasal Can nula route continuous. predniSONE 10 mg oral tablet (20 sources) Start: 01-02-2025 Prednisone 10 mg tablet Active 10 mg PO DAILY January 02, 2025 12:00am 4 tablets x 3 days, 3 tablets x 3 days, 2 tablets x 3 days, 1 tablet x 3 days and stop Start: 01-02-2024 End: 07-06-2024 take 1 tablet by mouth once daily as needed Prednisone 20 mg tablet Discontinued 20 mg PO DAILY as needed May 02, 2024 1:44pm July 06, 2024 11:18am Start: 03-25-2023 End: 06-18-2024 predniSONE (DELTASONE) 10 mg tablet 03/25/2023 06/18/2024 Discontinued Start: 03-24-2023 End: 04-11-2023 take 4 tablets by mouth once daily, then take 3 tablets by mouth once daily, then take 2 tablets by mouth once daily, then take 1 tablet by mouth once daily, then take 1 tablet by mouth every other day Prednisone 10 mg tablet Discontinued 10 mg PO DIRECTED March 24, 2023 12:00am April 11, 2023 10:22am Take 4 tablets daily for 3 days, then 3 daily for 3 days, then 2 daily for 3 days, then 1 a day for 3 days then 1 QOD for 3 doses. Start: 12-28-2022 End: 04-11-2023 take 2 tablets by mouth once daily Prednisone 20 mg tablet Discontinued 40 mg PO DAILY February 28, 2023 12:00am April 11, 2023 10:22am Start: 12-28-2022 End: 04-11-2023 take 40 mg by mouth once daily Prednisone Discontinued 40 MG PO DAILY February 28, 2023 12:00am April 11, 2023 10:22am Start: 06-17-2022 End: 09-16-2022 take 2 tablets by mouth once daily Prednisone 20 mg tablet Discontinued 40 mg PO DAILY June 17, 2022 12:00am September 16, 2022 12:07pm Start: 06-17-2022 End: 09-16-2022 take 40 mg by mouth once daily Prednisone Discontinued 40 MG PO DAILY June 17, 2022 12:00am September 16, 2022 12:07pm Start: 02-09-2022 End: 02-24-2022 take 1 tablet by mouth three times daily predniSONE 10 MG Oral Tablet TAKE 1 TABLET 3 TIMES DAILY. Quantity: 15 Refills: 0 Ordered: 09-Feb-2022 Gregg Miller MD Start : 09-Feb-2022 End : 24-Feb-2022 Complete Start: 08-11-2021 End: 09-15-2021 take 1 tablet by mouth three times daily predniSONE 10 MG Oral Tablet TAKE 1 TABLET 3 TIMES DAILY. Quantity: 15 Refills: 0 Ordered: 08-Sep-2021 Gregg Miller MD Start : 08-Sep-2021 End : 15-Sep-2021 Complete take 1 tablet by hanna th once daily predniSONE (DELTASONE) 10 MG tablet Take 10 mg by mouth daily . 0 Active Sodium Chloride-Aloe Vera (A yr Saline) gel (6 sources) Start: 02-28-2023 Sodium Chlorid e-Aloe Vera ([place] Saline) gel Active 1 NMA TOPICAL BEDTIME as needed for nasal gel February 28, 2023 12:00am Start: 02-28-2023 Sodium Chlorid e-Aloe Vera ([place] Saline) gel Active 1 NMA TOPICAL BEDTIME as needed February 28, 2023 12:00am Start: 02-28-2023 Sodium Chlorid e-Aloe Vera ([place] Saline) gel Active 1 APPLIC TOPICAL BEDTIME February 28, 2023 12:00am Completed/Discontinued Medications Medication Drug Class(es) Dates Sig (Normalized) Sig (Original) Accu-Chek SmartView STRP (5 sources) Accu-Chek SmartV iew STRP TO CHECK BS 4-5 TIMES A DAY Refills: 0 DO Active Accu-Chek SmartV iew STRP TO CHECK BS 4-5 TIMES A DAY Refills: 0 Active acetaminophen 500 mg oral ta blet (20 sources) Start: 04-02-2022 End: 06-18-2024 acetaminophen (TYLENOL) 500 mg tablet Take by mouth. 04/02/2022 06/18/2024 Discontinued Start: 04-02-2022 End: 05-02-2024 take 2 tablets by mouth every six hours Acetaminophen 500 mg tablet Discontinued 1000 mg PO EVERY 6 HOURS April 02, 2022 12:00am May 02, 2024 1:42pm Start: 04-02-2022 take 1000 mg by mout h every six hours Acetaminophen Active 1000 MG PO EVERY 6 HOURS April 02, 2022 12:00am take 2 tablets by mo uth four times daily Tylenol Extra Strength 500 MG Oral Tablet 2 tabs qid Quantity: 0 Refills: 0 Ordered: 01-Nov-2019 DO Active Comment on above: Take by mouth. acetaminophen 325 mg / oxyCODONE hydrochloride 7.5 mg oral tablet (20 sources) Opioid Agonist Start: 04-02-2022 End: 09-16-2022 take 1 tablet by mouth twice daily Oxycodone-Acetaminoph en Discontinued 1 TABLET PO TWICE A DAY April 02, 2022 12:00am September 16, 2022 12:07pm Start: 12-30-2021 End: 09-16-2022 Oxycodone-Acetaminophen 7.5- 325 mg tablet Discontinued 1 {tbl} PO TWICE A DAY as needed for Chest Pain April 02, 2022 12:00am September 16, 2022 12:07pm Start: 12-30-2021 oxyCODONE-acet aminophen (PERCOCET) 7.5-325 mg tablet Take by mouth. 0 12/30/2021 Active Start: 12-30-2021 take 1 tablet by hanna th every twelve hours as needed for pain oxyCODONE-Acetaminophen 5-325 MG Oral Tablet TAKE 1 TABLET EVERY 12 HOURS NEEDED FOR PAIN. Quantity: 14 Refills: 0 Ordered: 30-Dec-2021 Wanda Simpson PA-C Start : 30-Dec-2021 Active PRN pain Comment on above: Take by mouth. albuterol 0.833 mg/ml / ipratropium bromide 0.167 mg/ml inhalation solution (20 sources) Anticholinergic, beta2-Adrenergic Agonist Start: 2 End: take 1 mL by inhalation four times daily Ipratropium-Albuterol 0.5 mg-3 mg(2.5 mg base)/3 mL solution for nebulization Discontinued 3 mL INHALATION 4 TIMES DAILY April 02, 2022 12:00am April 20, 2022 4:11pm Start: 04-02-2022 End: 04-20-2022 take 1 mL by inhalation four times daily Ipratropium-Albuterol Discontinued 3 ML INHALATION 4 TIMES DAILY April 02, 2022 12:00am April 20, 2022 4:11pm take 3 mL by inhalat ion every six hours as needed ipratropium-albuterol (DUONEB) 0.5 mg-3 mg(2.5 mg base)/3 mL nebu Inhale 3 mL as instructed every 6 hours as needed. Active Albuterol-Ipratr opium 2.5-0.5 MG/3ML SOLN ADMINISTER ONE 3 ML VIAL 4 TIMES DAILY VIA NEBULIZATION. Quantity: 0 Refills: 0 Ordered: 01-Nov-2019 DO Active Albuterol-Ipratr opium 2.5-0.5 MG/3ML SOLN ADMINISTER ONE 3 ML VIAL 4 TIMES DAILY VIA NEBULIZATION. Refills: 0 DO Active Albuterol-Ipratr opium 2.5-0.5 MG/3ML SOLN ADMINISTER ONE 3 ML VIAL 4 TIMES DAILY VIA NEBULIZATION. Refills: 0 Active Comment on above: Inhale 3 mL as instr ucted every 6 hours as needed. amitriptyline hydrochloride 100 mg oral tablet (2 sources) Tricyclic Antidepressant End: 09-06-20 take 1 tablet by mouth once amitriptyline (ELAVIL) 100 MG tablet Take 100 mg by mouth nightly. 09/06/2017 Discontinued atorvastatin 40 mg oral tablet (20 sources) HMG-CoA Reductase Inhibitor Start: 04-09-20 End: 05-02-20 24 take 1 tablet by mouth once daily Atorvastatin (Lipitor) 40 mg tablet Discontinued 40 mg PO DAILY May 09, 2023 12:17pm November 08, 2023 3:46pm Comment on above: Take by mouth. Take by mouth once d aily. azithromycin 250 mg oral tablet (16 sources) Macrolide Antimicrobial Start: 02-10-20 End: 02-25-20 Azithromycin 250 MG Oral Tablet TAKE 2 TABLETS ON DAY 1 THEN TAKE 1 TABLET A DAY FOR 4 DAYS. Quantity: 1 Refills: 0 Ordered: 09-Feb-2022 Paul TAO, Gregg Start : 09-Feb-2022 End : 24-Feb-2022 Complete Start: 08-18-2021 End: 09-15-2021 Azithromycin 250 MG Oral Tab let TAKE 2 TABLETS ON DAY 1 THEN TAKE 1 TABLET A DAY FOR 4 DAYS. Quantity: 1 Refills: 0 Ordered: 08-Sep-2021 Gregg Miller MD Start : 08-Sep-2021 End : 15-Sep-2021 Complete Start: 08-11-2021 Azithromycin 2 50 MG Oral Tablet TAKE 2 TABLETS ON DAY 1 THEN TAKE 1 TABLET A DAY FOR 4 DAYS. Quantity: 1 Refills: 0 Ordered: 11-Aug-2021 Gregg Miller MD Start : 11-Aug-2021 Active baclofen 10 mg oral tablet (20 sources) gamma-Aminobutyric Acid-ergic Agonist Start: 09-13-2019 End: 05-02-2024 take 1 tablet by mouth three times daily Baclofen 10 mg Tablet Discontinued 10 mg PO THREE TIMES A DAY March 20, 2022 12:00am May 02, 2024 1:44pm BACLOFEN ORAL Ta ke by mouth. Active Comment on above: Take by mouth. Take 10 mg by mouth three times daily. benzonatate 200 mg oral capsule (12 sources) Non-narcotic Antitussive Start: End: 2 take 1 capsule by mouth three times daily as needed Benzonatate 200 MG Oral Capsule TAKE 1 CAPSULE 3 TIMES DAILY NEEDED. Quantity: 21 Refills: 0 Ordered: 15-Sep-2021 Gregg Miller MD Start : 15-Sep-2021 End : 19-Oct-2021 Complete Start: 07-24-2019 take 1 capsule by [facility] three times daily as needed Benzonatate 100 MG Oral Capsule TAKE 1 CAPSULE 3 TIMES DAILY NEEDED. Quantity: 21 Refills: 0 Gregg Miller MD Start : 24-Jul-2019 Active betamethasone 0.5 mg/ml / clotrimazole 10 mg/ml topical cream (6 sources) Azole Antifungal, Corticosteroid Start: 03-04-2020 Clotrimazole-Betamethasone 1-0.05 % External Cream APPLY AND RUB IN A THIN FILM TO AFFECTED AREAS TWICE DAILY.(AM AND PM). Quantity: 1 Refills: 1 Gregg Miller MD Start : 04-Mar-2020 Active 45 GM Tube dexamethasone 6 mg oral tablet (7 sources) Corticosteroid Start: 09-15-2021 End: 10-19-2021 take 1 tablet by mouth once daily Dexamethasone 6 MG Oral Tablet TAKE 1 TABLET DAILY. Quantity: 5 Refills: 0 Ordered: 15-Sep-2021 Gregg Miller MD Start : 15-Sep-2021 End : 19-Oct-2021 Complete dilTIAZem hydrochloride 30 mg oral tablet (20 sources) Calcium Channel Krupa Start: 08-03-2017 End: 04-15-2022 take 1 tablet by mouth three times daily Diltiazem Hcl 30 mg Tablet Discontinued 30 mg PO THREE TIMES A DAY March 20, 2022 12:00am April 09, 2022 11:36am dilTIAZem HCl TA BS Quantity: 0 Refills: 0 Ordered: 15-Apr-2022 DO Active doxycycline monohydrate 100 mg oral tablet (16 sources) Tetracycline-class Drug Start: 02-28-2023 End: 04-11-2023 take 1 tablet by mouth twice daily Doxycycline Monohydrate 100 mg tablet Discontinued 100 mg PO TWICE A DAY February 28, 2023 12:00am April 11, 2023 10:20am Start: 06-17-2022 End: 07-26-2022 take 1 tablet by mouth twice daily Doxycycline Monohydrate 100 mg tablet Discontinued 100 mg PO TWICE A DAY June 17, 2022 12:00am July 26, 2022 1:12pm ergocalciferol 1.25 mg oral capsule (20 sources) Provitamin D2 Compound Start: 12-02-2021 End: 06-18-2024 Ergocalciferol (Vitamin D2) (Vitamin D2) 1,250 mcg (50,000 unit) Capsule Discontinued 1250 ug PO EVERY WEEK March 20, 2022 12:00am November 08, 2023 3:44pm tuesday Comment on above: Take by mouth. erythromycin 0.005 mg/mg ophthalmic ointment (14 sources) Macrolide, Macrolide Antimicrobial Start: 12-28-2022 End: 01-04-2023 Erythromycin 5 mg/gram (0.5 %) ointment Discontinued 0.5 [in_us] OPHTHALMIC EVERY 6 HOURS 3.5 7 December 28, 2022 11:52am January 03, 2023 12:00am January 04, 2023 12:04am Start: 12-28-2022 End: 01-04-2023 Erythromycin Discontinued 0. 5 INCH OPHTHALMIC EVERY 6 HOURS 3.5 7 December 28, 2022 11:52am January 04, 2023 12:04am esomeprazole 40 mg delayed release oral capsule (20 sources) Proton Pump Inhibitor Start: 07-26-2022 End: 10-23-2024 take 1 capsule by mouth twice daily Esomeprazole Magnesium 40 mg capsule,delayed release(DR/EC) Discontinued 40 mg PO TWICE A DAY 180 May 07, 2024 4:03pm October 23, 2024 1:32pm take 1 capsule by [facility] once daily esomeprazole (NEXIUM) 40 mg capsule Take 40 mg by mouth once daily. Active End: 06-18-2024 take 1 capsule by mouth once daily, then take 6 capsules by mouth in the morning esomeprazole (NEXIUM) 20 mg capsule Take 20 mg by mouth DAILY (6 AM). 06/18/2024 Discontinued Comment on above: Take 20 mg by mouth DAILY (6 AM). Fluticasone Propion-Salmeterol (12 sources) Corticosteroid, beta2-Adrenergic Agonist Start: 09-16-2022 End: 04-11-2023 Fluticasone Propion-Salmeterol (Wixela Inhub) 250-50 mcg/dose blister with device Discontinued 1 NMA INHALATION September 16, 2022 1:00am April 11, 2023 10:20am Start: 09-16-2022 End: 04-11-2023 Fluticasone Propion-Salmeter ol (Wixela Inhub) 250-50 mcg/dose blister with device Discontinued 1 INH INHALATION September 16, 2022 1:00am April 11, 2023 10:20am Start: 09-16-2022 Fluticasone Pr opion-Salmeterol (Wixela Inhub) 250-50 mcg/dose blister with device Active 1 INH INHALATION September 16, 2022 1:00am Start: 05-14-2022 take 1 puff(s) by [facility] twice daily fluticasone-salmeterol (ADVAIR DISKUS) 250-50 mcg/dose inhaler Inhale 1 Puff as instructed twice daily. RINSE AND GARGLE MOUTH WITH WATER AFTER EACH USE. 3 Each 3 05/14/2022 Active fluticasone-salm eterol (ADVAIR DISKUS) 100-50 mcg/dose diskus inhaler Inhale 1 puff 2 (two) times a day. Active Comment on above: Inhale 1 Puff as ins tructed twice daily. RINSE AND GARGLE MOUTH WITH WATER AFTER EACH USE. furosemide 20 mg oral tablet (20 sources) Loop Diuretic Start: 04-09-2022 take 40 mg by mouth twice daily Furosemide Active 40 MG PO TWICE A DAY April 09, 2022 12:00am Start: 04-02-2022 End: 04-09-2022 take 1 tablet by mouth twice daily Furosemide 40 mg tablet Discontinued 40 mg PO TWICE A DAY April 02, 2022 11:00am April 09, 2022 11:19am Start: 03-20-2022 End: 04-02-2022 take 1 tablet by mouth once daily Furosemide 40 mg Tablet Discontinued 40 mg PO DAILY March 20, 2022 12:00am April 02, 2022 11:07am Start: 07-30-2019 End: 12-20-2024 take 2 tablets by mouth twice daily Furosemide 20 mg tablet Discontinued 40 mg PO TWICE A DAY 180 October 23, 2024 1:31pm December 20, 2024 12:34pm furosemide (LASI X) 20 mg tablet Take 20 mg by mouth. Active FUROSEMIDE (LASI X ORAL) Take by mouth. 0 Active FUROSEMIDE (LASI X ORAL) Take by mouth. Active Comment on above: Take 20 mg by mouth. gabapentin 600 mg oral tablet (20 sources) Anti-epileptic Agent Start: 04-02-2022 End: 10-28-2022 take 1200 mg by mouth three times daily Gabapentin Discontinued 1200 MG PO THREE TIMES A DAY April 02, 2022 11:00am October 28, 2022 11:22am Start: 03-20-2022 End: 04-02-2022 take 1 tablet by mouth three times daily Gabapentin 600 mg tablet Discontinued 600 mg PO THREE TIMES A DAY March 20, 2022 12:00am April 02, 2022 11:07am Start: 08-09-2019 End: 10-28-2022 take 2 tablets by mouth three times daily Gabapentin 600 mg tablet Discontinued 1200 mg PO THREE TIMES A DAY April 02, 2022 11:00am October 28, 2022 11:22am GABAPENTIN ORAL Take by mouth. 0 Active GABAPENTIN ORAL Take by mouth. Active Comment on above: Take 600 mg by mouth three times daily. insulin aspart, human 100 unt/ml injectable solution (20 sources) Insulin Analogue Start: 04-02-2022 End: 10-23-2024 Insulin Aspart U-100 (Novolog U-100 Insulin Aspart) 100 unit/mL solution Discontinued 10 U SC .SLIDING SCALE October 23, 2024 1:31pm October 23, 2024 4:53pm sliding scale Start: 04-02-2022 Insulin Aspart U-100 (Novolog U-100 Insulin Aspart) 100 unit/mL solution Active 10 UNIT SC THREE TIMES A DAY April 02, 2022 11:01am sliding scale Start: 03-20-2022 End: 04-02-2022 Insulin Aspart U-100 (Novolo g U-100 Insulin Aspart) 100 unit/mL Solution Discontinued U SC THREE TIMES A DAY March 20, 2022 12:00am April 02, 2022 11:07am sliding scale Start: 03-20-2022 End: 04-02-2022 Insulin Aspart U-100 (Novolo g U-100 Insulin Aspart) 100 unit/mL Solution Discontinued UNIT SC THREE TIMES A DAY March 20, 2022 12:00am April 02, 2022 11:07am sliding scale insulin aspart U -100 (NOVOLOG) 100 unit/mL Inject subcutaneously. Active NovoLOG 100 UNIT /ML SOLN 10 UNITS SUBCUTANEOUS, TIDAC Quantity: 0 Refills: 0 Ordered: 01-Nov-2019 DO Active insulin aspart ( NovoLOG) 100 unit/mL injection Inject under the skin 3 (three) times a day before meals. 0 Active Comment on above: Inject subcutaneousl y. levoFLOXacin 750 mg oral tablet (17 sources) Quinolone Antimicrobial Start: 03-24-20 End: 04-11-20 take 1 tablet by mouth once daily Levofloxacin 750 mg tablet Discontinued 750 mg PO DAILY March 24, 2023 12:00am April 11, 2023 10:21am Start: 02-24-2022 take 1 tablet by hanna th once daily levoFLOXacin 500 MG Oral Tablet TAKE 1 TABLET DAILY DIRECTED. Quantity: 5 Refills: 0 Ordered: 24-Feb-2022 Paul TAO, Gregg Start : 24-Feb-2022 Active Start: 09-15-2021 End: 10-19-2021 take 1 tablet by mouth once daily levoFLOXacin 500 MG Oral Tablet TAKE 1 TABLET DAILY DIRECTED. Quantity: 7 Refills: 0 Ordered: 15-Sep-2021 Gregg Miller MD Start : 15-Sep-2021 End : 19-Oct-2021 Complete lisinopril 5 mg oral tablet (20 sources) Angiotensin Converting Enzyme Inhibitor Start: 03-20-2022 End: 10-23-2024 take 1 tablet by mouth once daily Lisinopril 5 mg tablet Discontinued 5 mg PO DAILY September 05, 2024 5:16pm October 23, 2024 1:32pm LISINOPRIL ORAL Take by mouth . 0 Active Comment on above: Take by mouth. Take 5 mg by mouth o nce daily. meloxicam (2 sources) Nonsteroidal Anti-inflammatory Drug End: 09-06-2017 MELOXICAM (MOBIC ORAL) Take by mouth. 09/06/2017 Discontinued MELOXICAM (MOBIC ORAL) Take by mouth. Active 24 hr metoprolol succinate 50 mg extended release oral tablet (20 sources) beta-Adrenergic Krupa Start: 04-09-2022 take 1 tablet by mouth every twenty-four hours metoprolol succinate ER (TOPROL XL) 50 mg 24 hr tablet Take by mouth. 0 04/09/2022 Active Start: 04-09-2022 End: 10-23-2024 take 1 tablet by mouth once daily Metoprolol Succinate (Toprol Xl) 50 mg tablet extended release 24 hr Discontinued 50 mg PO DAILY December 24, 2022 12:55pm November 08, 2023 3:46pm Metoprolol Tartr ate TABS Quantity: 0 Refills: 0 Ordered: 15-Apr-2022 DO Active Comment on above: Take by mouth. Take 50 mg by mouth once daily. montelukast 10 mg oral tablet (20 sources) Leukotriene Receptor Antagonist Start: End: take 1 tablet by mouth at bedtime Montelukast 10 mg tablet Discontinued 10 mg PO AT BEDTIME March 19, 2024 12:49pm October 23, 2024 1:32pm MONTELUKAST SODI UM (SINGULAIR ORAL) Take by mouth. 0 Active MONTELUKAST SODI UM (SINGULAIR ORAL) Take by mouth. Active Comment on above: Take by mouth. Take 1 tablet by hanna th daily at bedtime. TAKE 1 TABLET BY HANNA TH DAILY AT BEDTIME Mupirocin (7 sources) RNA Synthetase Inhibitor Antibacterial Start: 12-28-2022 End: 12-31-2022 Mupirocin 2 % ointment Discontinued 1 NMA TOPICAL TWICE A DAY 15 December 28, 2022 12:00am December 30, 2022 12:00am December 31, 2022 12:05am Start: 12-28-2022 End: 12-31-2022 Mupirocin Discontinued 1 AZIZA LIC TOPICAL TWICE A DAY 15 December 28, 2022 12:00am December 31, 2022 12:05am oxygen (20 sources) Oxygen 2 L/NC, N COOPER, DAILY Quantity: 0 Refills: 0 Ordered: 01-Nov-2019 DO Active Oxygen 2 L/NC, N COOPER, DAILY Refills: 0 DO Active Oxygen 2 L/NC, N COOPER, DAILY Refills: 0 Active oxygen Inhale Ti trated. 0 Active oxygen Inhale Ti trated. Active pantoprazole 20 mg delayed release oral tablet (20 sources) Proton Pump Inhibitor Start: 06-28-2022 End: 07-26-2022 take 2 tablets by mouth once daily in the morning, then take 1 tablet by mouth once daily Pantoprazole 40 mg tablet,delayed release (DR/EC) Discontinued 40 mg PO DAILY June 28, 2022 1:11pm July 26, 2022 1:26pm Okay to take before bed or in AM, Take 2 tabs PO daily for 2 weeks then take 1 tab daily Start: 05-19-2022 End: 06-28-2022 take 1 tablet by mouth once daily in the morning Pantoprazole 40 mg tablet,delayed release (DR/EC) Discontinued 40 mg PO DAILY June 10, 2022 10:14am June 28, 2022 1:13pm Okay to take before bed or in AM Start: 03-20-2022 End: 06-18-2024 Pantoprazole 20 mg tablet,de layed release (DR/EC) Discontinued 20 mg PO September 16, 2022 1:00am October 28, 2022 11:22am Start: 08-03-2017 End: 09-06-2017 pantoprazole (PROTONIX) 40 M G tablet pantoprazole sod ium (PANTOPRAZOLE ORAL) Take by mouth . 0 Active Comment on above: Take by mouth. Take 20 mg by mouth once daily. microencapsulated potassium chloride 20 meq extended release oral tablet (20 sources) Start: 08-04-2021 End: 10-23-2024 Potassium Chloride (Klor-Con M20) 20 mEq tablet,ER particles/crystals Discontinued 20 meq PO DAILY 90 September 05, 2024 5:17pm October 23, 2024 1:32pm Start: 08-04-2021 take 1 tablet by hanna th once daily Potassium Chloride Mony ER 20 MEQ Oral Tablet Extended Release TAKE 1 TABLET BY MOUTH ONCE DAILY Quantity: 90 Refills: 0 Ordered: 06-Nov-2021 DO Start : 04-Aug-2021 Active take 20 mEq by mouth twice daily potassium chloride (KLOR-CON) 20 mEq packet Take 20 mEq by mouth 2 (two) times a day . 0 Active Comment on above: Take by mouth. Take by mouth once d aily. primidone 50 mg oral tablet (20 sources) Anti-epileptic Agent Start: 08-28-2019 End: 02-24-2022 take 2 tablets by mouth twice daily Primidone 50 MG Oral Tablet TAKE 2 TABLETS TWICE DAILY Quantity: 120 Refills: 0 Ordered: 18-Oct-2021 Gregg Miller MD Start : 28-Aug-2019 End : 24-Feb-2022 Complete Start: 09-27-2018 End: 06-18-2024 take 1 tablet by mouth twice daily Primidone 50 mg tablet Discontinued 50 mg PO TWICE A DAY 180 June 08, 2022 3:40pm October 28, 2022 11:23am rOPINIRole 0.5 mg oral tablet (20 sources) Nonergot Dopamine Agonist Start: 03-20-2022 End: 06-18-2024 take 1 tablet by mouth twice daily Ropinirole 0.5 mg tablet Discontinued 0.5 mg PO TWICE A DAY 180 March 28, 2023 4:04pm April 11, 2023 10:23am take 1 tablet by mouth at bedtim e rOPINIRole HCl - 0.5 MG Oral Tablet TAKE 1 TABLET Bedtime Quantity: 90 Refills: 3 Ordered: 02-Dec-2021 Gregg Miller MD Active Comment on above: Take by mouth. Take 0.5 mg by mouth twice daily. sertraline 100 mg oral tablet (20 sources) Serotonin Reuptake Inhibitor Start: 08-03-20 End: 09-17-20 take 1 tablet by mouth once daily Sertraline 100 mg Tablet Discontinued 100 mg PO DAILY March 20, 2022 12:00am April 02, 2022 11:06am sucralfate 1000 mg oral tablet (20 sources) Aluminum Complex Start: 05-19-20 End: 08-16-20 take 1 tablet by mouth four times daily 1 hour(s) before bedtime Sucralfate 1 gram tablet Discontinued 1 g PO 4 TIMES DAILY August 04, 2022 8:12am August 16, 2022 2:12pm Take 1 hour before meals and at bedtime traMADol hydrochloride 50 mg oral tablet (17 sources) Opioid Agonist Start: 09-16-20 End: 07-06-20 take 1 tablet by mouth three times daily as needed Tramadol 50 mg tablet Discontinued 50 mg PO THREE TIMES A DAY as needed April 11, 2023 10:22am July 06, 2024 11:18am 1 ml triamcinolone acetonide 40 mg/ml injection (3 sources) Corticosteroid Start: 02-01-20 End: 02-01-20 triamcinolone acetonide (KENALOG-40) injection 40 mg Start: 09-06-2017 End: 09-06-2017 triamcinolone acetonide (KATYA ALOG-40) injection 40 mg 40 mg, Intra-articular, Starting 09/06/17 at 1148 Given 09/06/2017 11:48 EST 40 mg Start: 07-21-2017 End: 07-21-2017 triamcinolone acetonide (KATYA ALOG-40) injection 40 mg 40 mg, Intra-articular, Starting Lakshmi 07/21/17 at 1050 Given 07/21/2017 10:50 EDT 40 mg 30 actuat umeclidinium 0.0625 mg/actuat / vilanterol 0.025 mg/actuat dry powder inhaler (4 sources) Anticholinergic, beta2-Adrenergic Agonist Start: 02-25-2021 End: 07-16-2021 take 1 puff(s) by inhalation once daily Anoro Ellipta 62.5-25 MCG/INH Inhalation Aerosol Powder Breath Activated INHALE 1 PUFFS Daily Quantity: 1 Refills: 11 Ordered: 25-Feb-2021 Gregg Miller MD Start : 25-Feb-2021 End : 16-Jul-2021 Complete urea 100 mg/ml topical cream (4 sources) Start: 01-02-2024 End: 01-02-2024 Urea 10 % cream Discontinued 1 NMA TOPICAL THREE TIMES A DAY January 02, 2024 12:00am January 02, 2024 10:13am vitamin b12 1 mg oral tablet (20 sources) Vitamin B12 Start: 08-03-2021 End: 06-18-2024 take 1 tablet by mouth once daily Cyanocobalamin (Vitamin B-12) 1,000 mcg tablet Discontinued 1000 ug PO DAILY March 20, 2022 12:00am October 28, 2022 11:22am Start: 08-03-2021 Cyanocobalamin 1000 MCG/ML Injection Solution inject once today Quantity: 0 Refills: 0 Ordered: 03-Aug-2021 Gregg Miller MD Start : 03-Aug-2021 Complete Comment on above: Take by mouth. Problems Active Problems Problem Classification Problem Date Documented Da te Episodic/Chronic Acute and unspecified renal failure (14 sources) Renal failure syndrome; Translations: [Unspecified kidney failure] 04-20-2022 Chronic Acute bronchitis (5 sources) Acute bacterial bronchitis; Translations: [Acute bronchitis due to other specified organisms] Onset: 5 01-01-2025 Episodic Administrative/social admission (6 sources) Persons encountering health services in other specified circumstances; Translations: [Other reasons for seeking consultation] Episodic Allergic reactions (20 sources) H/O: multiple allergies; Translations: [Other specified conditions influencing health status] 12-28-2022 Episodic Asthma (15 sources) Asthma-chronic obstructive pulmonary disease overlap syndrome; Translations: [Asthma-COPD overlap syndrome] Onset: 2 09-17-2022 Chronic Bacterial infection; unspecified site (20 sources) Rheumatic fever without heart involvement; Translations: [Rheumatic fever without mention of heart involvement] Onset: 5 Episodic Cardiac dysrhythmias (20 sources) Paroxysmal atrial fibrillation; Translations: [Paroxysmal atrial fibrillation with RVR] Onset: 0 Chronic Comment on above: STABLE; Chronic obstructive pulmonary disease and bronchiectasis (20 sources) Chronic obstructive lung disease; Translations: [Acute exacerbation of chronic asthmatic bronchitis] Onset: 2 Chronic Conditions associated with dizziness or vertigo (20 sources) Dizziness; Translations: [Dizziness and giddiness] 04-11-2023 Episodic Conduction disorders (20 sources) Right bundle branch block AND left posterior fascicular block; Translations: [Bifascicular block] Chronic Deficiency and other anemia (20 sources) Anemia of chronic disease; Translations: [Anemia of other chronic disease] Chronic Diabetes mellitus with complications (20 sources) Diabetic neuropathy; Translations: [Diabetes with neurological manifestations, type II or unspecified type, not stated as uncontrolled] Chronic Diabetes mellitus without complication (20 sources) Type 2 diabetes mellitus; Translations: [Diabetes mellitus] Onset: 4 Chronic Disorders of lipid metabolism (20 sources) Primary hypertriglyceridemia; Translations: [Hypercholesterolemia] Onset: 4 Chronic E Codes: Fall (20 sources) Fall; Translations: [Other specified aftercare] 05-01-2022 Episodic Esophageal disorders (9 sources) Gastro-esophageal reflux disease without esophagitis; Translations: [Esophageal reflux] Chronic Essential hypertension (20 sources) Benign essential hypertension; Translations: [Benign essential hypertension] Onset: 4 Chronic Fluid and electrolyte disorders (20 sources) Hypokalemia; Translations: [Hypopotassemia] Episodic Gastroduodenal ulcer (except hemorrhage) (17 sources) Prepyloric ulcer; Translations: [Gastric ulcer, unspecified as acute or chronic, without hemorrhage or perforation] Chronic Genitourinary symptoms and ill-defined conditions (13 sources) Cloudy urine; Translations: [Other nonspecific findings on examination of urine] Episodic Immunizations and screening for infectious disease (6 sources) Encounter for immunization; Translations: [Need for prophylactic vaccination and inoculation against unspecified single disease] Episodic Inflammation; infection of eye (except that caused by tuberculosis or sexually transmitteddisease) (3 sources) Unspecified acute conjunctivitis, left eye; Translations: [Acute conjunctivitis, unspecified] 12-28-2022 Episodic Inflammatory diseases of female pelvic organs (20 sources) Vulval cellulitis; Translations: [Vaginitis and vulvovaginitis, unspecified] Episodic Influenza (5 sources) Influenza due to Influenza A virus; Translations: [Influenza due to other identified influenza virus with other respiratory manifestations] Onset: 5 01-01-2025 Episodic Joint disorders and dislocations; trauma-related (14 sources) Dislocation of temporomandibular joint; Translations: [Dislocation of jaw, unspecified side, initial encounter] 04-20-2022 Episodic Malaise and fatigue (10 sources) Malaise; Translations: [Other malaise] Onset: 5 01-01-2025 Episodic Mood disorders (20 sources) Depressive disorder; Translations: [Depressive disorder, not elsewhere classified] Chronic Mycoses (20 sources) Candidiasis of mouth; Translations: [Candidiasis of mouth] Episodic Nausea and vomiting (16 sources) Rumination disorder; Translations: [Vomiting, unspecified] Episodic Nonspecific chest pain (20 sources) Chest pain; Translations: [Chest pain, unspecified] Episodic Nutritional deficiencies (20 sources) Vitamin D deficiency; Translations: [Unspecified vitamin D deficiency] Chronic Nutritional deficiencies (20 sources) Cobalamin deficiency; Translations: [Other B-complex deficiencies] Episodic Osteoarthritis (20 sources) Osteoarthritis of knee; Translations: [Bilateral primary osteoarthritis of knee] Onset: Chronic Other acquired deformities (1 source) Stenosis of intervertebral foramina; Translations: [Foraminal stenosis of cervical region] Episodic Other and unspecified benign neoplasm (20 sources) History of polyp of colon; Translations: [Personal history of colonic polyps] Episodic Other circulatory disease (20 sources) Nasal discharge; Translations: [Other symptoms involving head and neck] Episodic Other connective tissue disease (3 sources) History of total knee arthroplasty; Translations: [Status post total bilateral knee replacement] Chronic Other connective tissue disease (2 sources) Presence of artificial knee joint, bilateral; Translations: [Presence of artificial knee joint, bilateral] Onset: 9 Chronic Other connective tissue disease (20 sources) Muscle pain; Translations: [Myalgia and myositis, unspecified] 01-01-2025 Episodic Other connective tissue disease (20 sources) Fibromyositis; Translations: [Myalgia and myositis, unspecified] Episodic Other connective tissue disease (20 sources) Trochanteric bursitis; Translations: [Enthesopathy of hip region] Episodic Other connective tissue disease (20 sources) Fibromyalgia; Translations: [Myalgia and myositis, unspecified] 04-20-2022 Episodic Other connective tissue disease (20 sources) Foot pain; Translations: [Pain in limb] Episodic Other connective tissue disease (4 sources) Myalgia, unspecified site; Translations: [Myalgia, unspecified site] Onset: Episodic Other female genital disorders (20 sources) Stenosis of cervix; Translations: [Stricture and stenosis of cervix] Episodic Other gastrointestinal disorders (20 sources) Dysphagia; Translations: [Dysphagia, unspecified] 04-28-2022 Episodic Other gastrointestinal disorders (10 sources) Dysphagia, unspecified; Translations: [Dysphagia, unspecified] Episodic Other hereditary and degenerative nervous system conditions (20 sources) Essential tremor; Translations: [Essential and other specified forms of tremor] 04-20-2022 Chronic Other hereditary and degenerative nervous system conditions (20 sources) Restless legs; Translations: [Restless legs syndrome (RLS)] 04-20-2022 Chronic Other hereditary and degenerative nervous system conditions (9 sources) Essential tremor; Translations: [Essential and other specified forms of tremor] Chronic Other injuries and conditions due to external causes (13 sources) Injury of head; Translations: [Unspecified injury of head, initial encounter] 05-01-2022 Episodic Other lower respiratory disease (20 sources) Hypoxemia; Translations: [Hypoxemia] Episodic Other lower respiratory disease (20 sources) Rib pain; Translations: [Chest pain, unspecified] Episodic Other lower respiratory disease (20 sources) Acute respiratory infections; Translations: [Other diseases of respiratory system, not elsewhere classified] Episodic Other lower respiratory disease (20 sources) Cough; Translations: [Cough] Episodic Other lower respiratory disease (20 sources) Dyspnea on exertion; Translations: [Shortness of breath] Episodic Other lower respiratory disease (16 sources) History of chronic obstructive airway disease; Translations: [Personal history of other diseases of the respiratory system] 03-28-2022 Episodic Other lower respiratory disease (4 sources) Respiratory insufficiency; Translations: [Other abnormalities of breathing] 01-01-2025 Episodic Other lower respiratory disease (1 source) Other abnormalities of breathing; Translations: [Other abnormalities of breathing] Onset: Episodic Other lower respiratory disease (1 source) Shortness of breath; Translations: [Shortness of breath] Onset: 5 Episodic Other nervous system disorders (11 sources) Chronic pain syndrome; Translations: [Chronic pain syndrome] Chronic Other nervous system disorders (1 source) Other chronic pain; Translations: [Other chronic pain] Onset: 2 Chronic Other nervous system disorders (1 source) Chronic pain syndrome; Translations: [Chronic pain syndrome] Onset: 2 Chronic Other nervous system disorders (20 sources) Tremor; Translations: [Abnormal involuntary movements] Episodic Other non-traumatic joint disorders (6 sources) Arthritis of acromioclavicular joint; Translations: [Arthritis of right acromioclavicular joint] Chronic Other non-traumatic joint disorders (20 sources) Shoulder pain; Translations: [Pain in joint, shoulder region] Episodic Other nutritional; endocrine; and metabolic disorders (20 sources) Morbid obesity; Translations: [Morbid obesity] Onset: 2 05-14-2022 Chronic Other nutritional; endocrine; and metabolic disorders (20 sources) Body mass index 40+ - severely obese; Translations: [Body Mass Index 40.0-44.9, adult] Chronic Other nutritional; endocrine; and metabolic disorders (20 sources) Obesity; Translations: [Obesity, unspecified] 04-09-2022 Chronic Other nutritional; endocrine; and metabolic disorders (9 sources) Obese class II; Translations: [Obesity, unspecified] Onset: 4 12-09-2023 Chronic Other nutritional; endocrine; and metabolic disorders (4 sources) Body mass index 30+ - obesity; Translations: [Obesity, unspecified] 01-01-2025 Chronic Other nutritional; endocrine; and metabolic disorders (1 source) Obesity, unspecified; Translations: [Obesity, unspecified] Onset: 5 Chronic Other screening for suspected conditions (not mental disorders or infectious disease) (20 sources) Patient encounter status; Translations: [Breast screening, unspecified] Episodic Other skin disorders (20 sources) Fissure in skin; Translations: [Other specified disorders of skin] Episodic Other upper respiratory disease (20 sources) Allergic rhinitis; Translations: [Allergic rhinitis, cause unspecified] Chronic Other upper respiratory disease (2 sources) Seasonal allergy; Translations: [Other seasonal allergic rhinitis] Chronic Other upper respiratory disease (3 sources) Other specified disorders of nose and nasal sinuses; Translations: [Other disease of nasal cavity and sinuses] 12-28-2022 Episodic Other upper respiratory infections (1 source) Posterior rhinorrhea; Translations: [Postnasal drip] Episodic Pleurisy; pneumothorax; pulmonary collapse (20 sources) Pleural effusion; Translations: [Unspecified pleural effusion] Episodic Pneumonia (except that caused by tuberculosis or sexually transmitted disease) (7 sources) Pneumonia; Translations: [Pneumonia, unspecified organism] 03-24-2023 Episodic Pulmonary heart disease (20 sources) Cor pulmonale; Translations: [Chronic pulmonary heart disease, unspecified] 04-09-2022 Chronic Residual codes; unclassified (20 sources) Obstructive sleep apnea of adult; Translations: [Obstructive sleep apnea (adult)(pediatric)] Chronic Residual codes; unclassified (17 sources) Obstructive sleep apnea syndrome; Translations: [Obstructive sleep apnea (adult) (pediatric)] 04-20-2022 Chronic Residual codes; unclassified (4 sources) Obstructive sleep apnea (adult) (pediatric); Translations: [Obstructive sleep apnea (adult)(pediatric)] Onset: 5 10-28-2022 Chronic Residual codes; unclassified (20 sources) Other specified health status; Translations: [Statin intolerance] Episodic Residual codes; unclassified (20 sources) Edema of lower extremity; Translations: [Edema] Episodic Residual codes; unclassified (20 sources) Chill; Translations: [Chills (without fever)] Episodic Respiratory failure; insufficiency; arrest (adult) (20 sources) Dependence on supplemental oxygen; Translations: [Chronic respiratory failure] Onset: 2 Chronic Comment on above: 2.5L [place] Rheumatoid arthritis and related disease (20 sources) Arthropathy of lumbar facet joint; Translations: [Lumbosacral spondylosis without myelopathy] Chronic Spondylosis; intervertebral disc disorders; other back problems (20 sources) Bilateral arthritis of sacroiliac joint; Translations: [Sacroiliitis, not elsewhere classified] Onset: 2 09-16-2022 Chronic Substance-related disorders (1 source) Opioid dependence, uncomplicated; Translations: [Opioid dependence, uncomplicated] Onset: 4 Chronic Syncope (5 sources) Near syncope; Translations: [Syncope and collapse] 03-24-2023 Episodic Unclassified (2 sources) Pre-op Exam Onset: 8 Unclassified (1 source) Patient will follow up in 4-6 Months, or sooner if needed. Thank you for allowing me to participate in the care of your patient. Please don't hesitate to call if any issues arise. This note was generated using a voice recognition system and there may be incorrect words, spelling, or punctuation that were not noted when reviewing the office note prior to saving. Portions of this documentation were copied and pasted from previous office visit notes to provide a cohesive continuity of the history. The note has been reviewed, edited, and updated, as necessary. 10-28-2022 Unclassified (1 source) Low back pain, unspecified; Translations: [Low back pain, unspecified] Onset: 2 Unclassified (1 source) Contact with and (suspected) exposure to COVID-19; Translations: [Contact with and (suspected) exposure to COVID-19] Onset: 2 Unclassified (1 source) Asthma-COPD overlap syndrome (HCC); Translations: [Asthma-COPD overlap syndrome (HCC)] Onset: 2 Urinary tract infections (13 sources) Urinary tract infectious disease; Translations: [Urinary tract infection, site not specified] Episodic Past or Other Problems Problem Classification Problem Date Documented Da te Episodic/Chronic External cause codes: Fall (1 source) Fall; Translations: [Falls] Other connective tissue disease (1 source) Fibromyalgia; Translations: [Fibromyalgia] Onset: 04-15-2022 Episodic Other non-traumatic joint disorders (6 sources) Bilateral arthritis of sacroiliac joint; Translations: [Bilateral sacroiliitis] Residual codes; unclassified (20 sources) Past history of procedure; Translations: [Other specified personal history presenting hazards to health] Onset: 09-15-2015 Episodic Comment on above: IMPRESSION: Normal d ensity of the forearm with decrease by 5.7% since 09/13/2013.Normal density of the lumbar spine and left hip. No prior studies of the hip or lumbar spine..; Screening and history of mental health and substance abuse codes (20 sources) Ex-cigarette smoker; Translations: [Personal history of nicotine dependence] Onset: 05-14-2022 05-14-2022 Episodic Spondylosis; intervertebral disc disorders; other back problems (20 sources) Chronic low back pain; Translations: [Brachial (cervical) neuritis] Onset: 01-28-2022 Episodic Unclassified (7 sources) Patient encounter status; Translations: [Breast cancer screening] NEGATED: Highlighted row has not occurred!Residual codes; unclassified (20 sources) Disease Episodic Results Test Name Value Interpretation Reference Range Facility Culture, Blood (WB)on 2024 CUB Blood cultures x2, f rom two different sites No growth in 5 days. Normal [facility] Comment on above: Performed By: #### L 500.4050, L500.4100, L100.0100, L501.9985, L501.9520 #### [facility] [address] [place], [place], [id number] Vitamin D 1,25-Dihydroxyon 0 01-05-2025 VIT D 1,25 DIHY 69.4 pg/mL Normal 24.8-81.5 [facility] Comment on above: Result Comment: Perf ormed at: - [facility] [address] [id number] Vat Skimmer: Dasia Flower MD, Phone: [phone] Performed By: #### L 500.4050, L500.4100, L100.0100, L501.9985, L501.9520 #### [facility] [address] [place], [place], [id number] Urine Cultureon 01-03-2025 [facility] Mixed Gram Pos Gram Neg Org [place] Count 11,000-25,000 MIXC Mixed contaminants. Submit a new specimen if indicated. Normal [facility] Comment on above: Performed By: #### L 500.4050, L500.4100, L100.0100, L501.9985, L501.9520 #### [facility] [address] [place], [place], [address] Absolute neutrophil countOrd ered By: Sunil Chavez on 01-02-2025 Neutrophils (Bld) [#/Vol] 4.8 10*3/uL 2.0-7.7 [facility] Anion gap in Serum or Plasma Ordered By: Sunil Chavez on 01-02-2025 Anion gap [Moles/Vol] 10 mmol/L 5-15 [facility] BUN/creatinine ratioOrdered By: Sunil Chavez on 01-02-2025 Urea nitrogen/Creatinine [Mass ratio] 14.1 mg/mg 10-20 [facility] Basophil percentageOrdered B y: Sunil Chavez on 01-02-2025 Basophils/100 WBC (Bld) 0.2 % 0-1 [facility] Bedside Glucoseon 01-02-2025 FINGERSTICK GLU 215 mg/dL High 74-106 [facility] Comment on above: Result Comment: MARGARITO GEMENT OF PATIENT CARE PER NURSING PROTOCOL Performed By: #### L 500.4050, L500.4100, L100.0100, L501.9985, L501.9520 #### [facility] [address] [place], [address] FINGERSTICK GLU 181 mg/dL High 74-106 [facility] Comment on above: Result Comment: MARGARITO GEMENT OF PATIENT CARE PER NURSING PROTOCOL Performed By: #### L 500.4050, L500.4100, L100.0100, L501.9985, L501.9520 #### [facility] [address] [place], [address] Bilirubin, totalOrdered By: Sunil Chavez on 01-02-2025 Bilirubin [Mass/Vol] 0.36 mg/dL 0.00-1.30 [facility] CBC W/Diff, Automatedon 12-09 Absolute Lymph 0.26 X10 3/uL Low 0.83-4.51 [facility] Comment on above: Performed By: #### L 500.4050, L501.2300, L100.0100, L500.4100 #### [facility] [address] [place], [address] Absolute Neut 4.8 X10 3/uL Normal 2.0-7.7 [facility] Comment on above: Performed By: #### L 500.4050, L501.2300, L100.0100, L500.4100 #### [facility] [address] [place], [address] Basophils/100 WBC (Bld) 0.2 % Normal 0-1 [facility] Comment on above: Performed By: #### L 500.4050, L501.2300, L100.0100, L500.4100 #### [facility] [address] [place], [address] Eosinophils/100 WBC (Bld) 0.0 % Normal 0-5 [facility] Comment on above: Performed By: #### L 500.4050, L501.2300, L100.0100, L500.4100 #### [facility] [address] [place], [address] Erythrocyte distribution width (RBC) [Ratio] 13.5 % Normal 11.6-14.6 [facility] Comment on above: Performed By: #### L 500.4050, L501.2300, L100.0100, L500.4100 #### [facility] [address] [place], [address] Hematocrit (Bld) [Volume fraction] 36.2 % Low 37-47 [facility] Comment on above: Performed By: #### L 500.4050, L501.2300, L100.0100, L500.4100 #### [facility] [address] [place], [address] Hemoglobin (Bld) [Mass/Vol] 11.9 g/dL Low 12.0-15.0 [facility] Comment on above: Performed By: #### L 500.4050, L501.2300, L100.0100, L500.4100 #### [facility] [address] [place], [address] IG% 0.400 Normal 0.0-0.9 [facility] Comment on above: Result Comment: IG% - Immature Granulocytes (promyelocytes, myelocytes and metamyelocytes) > 1% indicates that a LEFT SHIFT is Present. Performed By: #### L 500.4050, L501.2300, L100.0100, L500.4100 #### [facility] [address] [place], [address] Lymphocytes/100 WBC (Bld) 5.0 % Low 19-41 [facility] Comment on above: Performed By: #### L 500.4050, L501.2300, L100.0100, L500.4100 #### [facility] [address] [place], [address] MCH (RBC) [Entitic mass] 30.8 pg Normal 27.0-32.0 [facility] Comment on above: Performed By: #### L 500.4050, L501.2300, L100.0100, L500.4100 #### [facility] [address] [place], [address] MCHC (RBC) [Mass/Vol] 32.9 g/dL Normal 32-36 [facility] Comment on above: Performed By: #### L 500.4050, L501.2300, L100.0100, L500.4100 #### [facility] [address] [place], [address] MCV (RBC) [Entitic vol] 93.8 fL Normal 81-99 [facility] Comment on above: Performed By: #### L 500.4050, L501.2300, L100.0100, L500.4100 #### [facility] [address] [place], [address] Monocytes/100 WBC (Bld) 2.3 % Normal 0-10 [facility] Comment on above: Performed By: #### L 500.4050, L501.2300, L100.0100, L500.4100 #### [facility] [address] [place], [address] Neutrophils/100 WBC (Bld) 92.1 % High 47-70 [facility] Comment on above: Performed By: #### L 500.4050, L501.2300, L100.0100, L500.4100 #### [facility] [address] [place], [address] Nucleated RBC (Bld) [#/Vol] 0 10*3/uL Normal 0-5 [facility] Comment on above: Performed By: #### L 500.4050, L501.2300, L100.0100, L500.4100 #### [facility] [address] [place], [address] Platelet mean volume (Bld) [Entitic vol] 10.4 fL Normal 6.2-12.0 [facility] Comment on above: Performed By: #### L 500.4050, L501.2300, L100.0100, L500.4100 #### [facility] [address] [place], [address] Platelets (Bld) [#/Vol] 166 10*3/uL Normal 150-450 [facility] Comment on above: Performed By: #### L 500.4050, L501.2300, L100.0100, L500.4100 #### [facility] [address] [place], [address] RBC (Bld) [#/Vol] 3.86 10*6/uL Low 4.2-5.4 [facility] Comment on above: Performed By: #### L 500.4050, L501.2300, L100.0100, L500.4100 #### [facility] [address] [place], [address] RDW SD 45.9 fl High 35.1-43.9 [facility] Comment on above: Performed By: #### L 500.4050, L501.2300, L100.0100, L500.4100 #### [facility] [address] [place], [address] WBC (Bld) [#/Vol] 5.2 10*3/uL Normal 4.4-11.0 [facility] Comment on above: Performed By: #### L 500.4050, L501.2300, L100.0100, L500.4100 #### [facility] [address] [place], [address] Calculated very low density lipoprotein (VLDL) cholesterol measurementOrdered By: Sunil Chavez on 01-02-2025 VLDL Cholesterol 8 mg/dL 5-40 [facility] Carbon dioxide, total [Moles /volume] in Central venous bloodOrdered By: Sunil Chavez on 01-02-2025 CO2 [Moles/Vol] 21.8 mmol/L 21.0-32.0 [facility] Chloride assayOrdered By: Roshan Chavez on 01-02-2025 Chloride [Moles/Vol] 109 mmol/L High 98-108 [facility] Comprehensive Metabolic Prof ilon 01-02-2025 Albumin [Mass/Vol] 3.5 g/dL Normal 3.4-4.8 [facility] Comment on above: Performed By: #### L 500.4050, L501.2300, L100.0100, L500.4100 #### [facility] [address] [place], [address] Albumin/Globulin [Mass ratio] 1.6 {ratio} Normal 0.9-2.4 [facility] Comment on above: Performed By: #### L 500.4050, L501.2300, L100.0100, L500.4100 #### [facility] [address] [place], [address] ALK PHOS 78 U/L Normal 35-104 [facility] Comment on above: Performed By: #### L 500.4050, L501.2300, L100.0100, L500.4100 #### [facility] [address] [place], [address] ALT [Catalytic activity/Vol] 20 U/L Normal <=34 [facility] Comment on above: Performed By: #### L 500.4050, L501.2300, L100.0100, L500.4100 #### [facility] [address] [place], [address] AST [Catalytic activity/Vol] 28 U/L Normal <=31 [facility] Comment on above: Performed By: #### L 500.4050, L501.2300, L100.0100, L500.4100 #### [facility] [address] [place], [address] Bilirubin [Mass/Vol] 0.36 mg/dL Normal 0.00-1.30 [facility] Comment on above: Performed By: #### L 500.4050, L501.2300, L100.0100, L500.4100 #### [facility] [address] [place], [address] BUN/CRE 14.1 RATIO Normal 10-20 [facility] Comment on above: Performed By: #### L 500.4050, L501.2300, L100.0100, L500.4100 #### [facility] [address] [place], [address] Calcium [Mass/Vol] 8.2 mg/dL Normal 7.6-11.0 [facility] Comment on above: Performed By: #### L 500.4050, L501.2300, L100.0100, L500.4100 #### [facility] [address] [place], [address] Chloride [Moles/Vol] 109 mmol/L High 98-108 [facility] Comment on above: Performed By: #### L 500.4050, L501.2300, L100.0100, L500.4100 #### [facility] [address] [place], [address] CO2 [Moles/Vol] 21.8 mmol/L Normal 21.0-32.0 [facility] Comment on above: Performed By: #### L 500.4050, L501.2300, L100.0100, L500.4100 #### [facility] [address] [place], [address] Creatinine [Mass/Vol] 0.90 mg/dL Normal 0.70-1.20 [facility] Comment on above: Performed By: #### L 500.4050, L501.2300, L100.0100, L500.4100 #### [facility] [address] [place], [address] ECRCL 63.28 ml/min Normal 50-250 [facility] Comment on above: Performed By: #### L 500.4050, L501.2300, L100.0100, L500.4100 #### [facility] [address] [place], [address] GAP 10 Normal 5-15 [facility] Comment on above: Performed By: #### L 500.4050, L501.2300, L100.0100, L500.4100 #### [facility] [address] [place], [address] GFR/1.73 sq M.predicted among non-blacks MDRD (S/P/Bld) [Vol rate/Area] 67 mL/min/{1.73_m2} Normal >60 [facility] Comment on above: Result Comment: mL/m in/1.73m2 CKD-EPI Creatinine Equation (2020) Performed By: #### L 500.4050, L501.2300, L100.0100, L500.4100 #### [facility] [address] [place], [address] Globulin (S) [Mass/Vol] 2.2 g/dL Normal 2.2-4.2 [facility] Comment on above: Performed By: #### L 500.4050, L501.2300, L100.0100, L500.4100 #### [facility] [address] [place], [address] Glucose [Mass/Vol] 200 mg/dL High 70-99 [facility] Comment on above: Performed By: #### L 500.4050, L501.2300, L100.0100, L500.4100 #### [facility] [address] [place], [address] Potassium [Moles/Vol] 4.5 mmol/L Normal 3.3-5.1 [facility] Comment on above: Performed By: #### L 500.4050, L501.2300, L100.0100, L500.4100 #### [facility] [address] [place], [address] Sodium [Moles/Vol] 140 mmol/L Normal 133-145 [facility] Comment on above: Performed By: #### L 500.4050, L501.2300, L100.0100, L500.4100 #### [facility] [address] [place], [address] T PROT 5.7 g/dL Low 5.9-8.4 [facility] Comment on above: Performed By: #### L 500.4050, L501.2300, L100.0100, L500.4100 #### [facility] [address] [place], [address] Urea nitrogen [Mass/Vol] 13 mg/dL Normal 4-19 [facility] Comment on above: Performed By: #### L 500.4050, L501.2300, L100.0100, L500.4100 #### [facility] [address] [place], [address] Electrocardiogram reportOrde red By: Domenic Humphries on 01-02-2025 EKG study [facility] Cardi[facility] Services [address] [place] [address] 12 Lead EKG 01/01/25 1802 MR#: [id number] Acct: [id number] Name: TISH BUTLER YOLI Rep #:[id number] : 1950 74 From: Domenic Humphrise MD Attending Dr: DO Haylee Dozier tatus: ADM IN Ordering Dr: Brent Rico DO Date: Location: [facility] Sex: F C Admitted: 01/01/25 Test Reason : COLD SX Blood Pressure : */* mmHG Vent. Rate : 75 BPM Atrial Rate : * BPM P-R Int : * ms QRS Dur : 118 ms QT Int : 402 ms P-R-T Axes : * 0 14 degrees QTcB Int : 448 ms Normal sinus rhythm Low voltage QRS Incomplete right bundle branch block Abnormal ECG Confirmed by DOMENIC HUMPHRIES MD ([id number]), greeting card editor JILLIAN BERRY ([id number]) on 01/02/2025 8:31:09 AM Referred By: Confirmed By: DOMENIC HUMPHRIES MD 01/02/25 0831 Date _ Domenic Humphries MD CC: Dr. Mariola Magdaleno MD; Dr. Tish Stokes DO; Dr. Brent Rico DO ~ Signed [facility] Work Phone: Eosinophil percentageOrdered By: Sunil Chavez on 01-02-2025 Eosinophils/100 WBC (Bld) 0.0 % 0-5 [facility] Erythrocyte distribution wid th ratioOrdered By: Sunil Chavez on 01-02-2025 Erythrocyte distribution width (RBC) [Ratio] 13.5 % 11.6-14.6 [facility] Erythrocyte distribution wid th standard deviationOrdered By: Sunil Chavez on 01-02-2025 Erythrocyte distribution width (RBC) [Entitic vol] 45.9 fL High 35.1-43.9 [facility] Estimation of creatinine naveen aranceOrdered By: Sunil Chavez on 01-02-2025 Estimated Creatinine Clearance Calc 63.28 ml/min 50-250 [facility] GFR/1.73 sq M.predicted david g non-blacks MDRD (S/P/Bld) [Vol rate/Area]Ordered By: Sunil Chavez on 01-02-2025 Estimated GFR (MDRD) Non-Af Amer 67 >60 [facility] Comment on above: mL/min/1.73m2 CKD-EP I Creatinine Equation (2020) [facility] at [facility] deOrdered By: Tish Stokes on 01-02-2025 Bedside Glucose (Misc Panel) 215 mg/dL High 74-106 [facility] Comment on above: MANAGEMENT OF PATIEN T CARE PER NURSING PROTOCOL Hematocrit Auto (Bld) [Volum e fraction]Ordered By: Sunil Chavez on 01-02-2025 Hematocrit (Bld) [Volume fraction] 36.2 % Low 37-47 [facility] Hemoglobin measurementOrdere d By: Sunil Chavez on 01-02-2025 Hemoglobin (Bld) [Mass/Vol] 11.9 g/dL Low 12.0-15.0 [facility] Immature granulocytes/100 WB C Auto (Bld)Ordered By: Sunil Chavez on 01-02-2025 Immature granulocytes/100 WBC (Bld) 0.400 % 0.0-0.9 [facility] Comment on above: IG% - Immature Granu locytes (promyelocytes, myelocytes and metamyelocytes) > 1% indicates that a LEFT SHIFT is Present. L503.0106on 01-02-2025 Cobalamin (Vitamin B12) [Mass/Vol] 334 pg/mL Normal 180-914 [facility] Comment on above: Performed By: #### L 500.4050, L500.4100, L100.0100, L501.9985, L501.9520 #### [facility] [address] [place], [address] LDL calc ser/plasOrdered By: Sunil Chavez on 01-02-2025 LDL Cholesterol, Calculated 67 mg/dL [facility] Comment on above: Alqtvmbtmg=586-347 m g/dL & Higher Hrqg=686 mg/dL or greater Laboratory - Chemistry and C hemistry - challengeOrdered By: Sunil Chavez on 01-02-2025 AST [Catalytic activity/Vol] 28 U/L <32 [facility] Lipid Profileon 01-02-2025 CHOL:HDL 2.31 Normal [facility] Comment on above: Performed By: #### L 500.4050, L501.2300, L100.0100, L500.4100 #### [facility] [address] [place], [address] Cholesterol [Mass/Vol] 132 mg/dL Normal <=200 [facility] Comment on above: Result Comment: Chol esterol level, Desirable <200 mg/dL Borderline high cholesterol 200-239 mg/dL High cholesterol >=240 mg/dL Recommendations of the NCEP Adult Treatment Panel for the following risk-cutoff thresholds for the [place] population. Performed By: #### L 500.4050, L501.2300, L100.0100, L500.4100 #### [facility] [address] [place], [address] Cholesterol in HDL [Mass/Vol] 57 mg/dL Normal [facility] Comment on above: Result Comment: Naomi onal Cholesterol Education Program (NCEP) guidelines: <40 mg/dL: Low HDL-cholesterol (major risk factor for CHD) >= 60 mg/dL: High HDL-cholesterol (negative risk factor for CHD) HDL-cholesterol is affected by a number of factors, e.g. smoking, exercise, hormones, sex and age. Performed By: #### L 500.4050, L501.2300, L100.0100, L500.4100 #### [facility] [address] [place], [address] Cholesterol in LDL [Mass/Vol] 67 mg/dL Normal [facility] Comment on above: Result Comment: Bord oiqiyq=564-599 mg/dL Higher Ajaq=856 mg/dL or greater Performed By: #### L 500.4050, L501.2300, L100.0100, L500.4100 #### [facility] [address] [place], [address] Cholesterol in VLDL [Mass/Vol] 8 mg/dL Normal 5-40 [facility] Comment on above: Performed By: #### L 500.4050, L501.2300, L100.0100, L500.4100 #### [facility] [address] [place], [address] Triglyceride [Mass/Vol] 39 mg/dL Normal [facility] Comment on above: Result Comment: The drugs N-Acetylcysteine and Metamizole may falsely depress this assay. Normal range: <150 mg/dL Borderline High: 150-199 mg/dL High: 200-499 mg/dL Very High: >500 mg/dL Performed By: #### L 500.4050, L501.2300, L100.0100, L500.4100 #### [facility] [address] [place], [address] Lymphocytes Auto (Unsp spec) [#/Vol]Ordered By: Sunil Chavez on 01-02-2025 Lymphocytes (Bld) [#/Vol] 0.26 10*3/uL Low 0.83-4.51 [facility] Lymphocytes/100 WBC Auto (Un sp spec)Ordered By: Sunil Chavez on 01-02-2025 Lymphocytes/100 WBC (Bld) 5.0 % Low 19-41 [facility] MCV (mean corpuscular volume ) determinationOrdered By: Sunil Chavez on 01-02-2025 MCV (RBC) [Entitic vol] 93.8 fL 81-99 [facility] Mean corpuscular hemoglobin (MCH) determinationOrdered By: Sunil Chavez on 01-02-2025 MCH (RBC) [Entitic mass] 30.8 pg 27.0-32.0 [facility] Mean corpuscular hemoglobin concentration (MCHC) determinationOrdered By: Sunil Chavez on 01-02-2025 MCHC (RBC) [Mass/Vol] 32.9 g/dL 32-36 [facility] Mean platelet volume determi nationOrdered By: Sunil Chavez on 01-02-2025 Platelet mean volume (Bld) [Entitic vol] 10.4 fL 6.2-12.0 [facility] Monocyte percentageOrdered B y: Sunil Chavez on 01-02-2025 Monocytes/100 WBC (Bld) 2.3 % 0-10 [facility] Neutrophil percentageOrdered By: Sunil Chavez on 01-02-2025 Neutrophils/100 WBC (Bld) 92.1 % High 47-70 [facility] Nucleated red blood cell per centageOrdered By: Sunil Chavez on 01-02-2025 Nucleated RBC/100 WBC (Bld) [Ratio] 0 % 0-5 [facility] Phosphoruson 01-02-2025 Phosphate [Mass/Vol] 3.6 mg/dL Normal 2.7-4.5 [facility] Comment on above: Performed By: #### L 500.4050, L501.2300, L100.0100, L500.4100 #### [facility] [address] [place], [place] [address], [address] Platelet countOrdered By: Roshan Chavez on 01-02-2025 Platelets (Bld) [#/Vol] 166 10*3/uL 150-450 [facility] Potassium (Unsp spec) [Mass/ Vol]Ordered By: Sunil Chavez on 01-02-2025 Potassium [Moles/Vol] 4.5 mmol/L 3.3-5.1 [facility] RBC Auto (Bld) [#/Vol]Ordere d By: Sunil Chavez on 01-02-2025 RBC (Bld) [#/Vol] 3.86 10*6/uL Low 4.2-5.4 [facility] Screening total cholesterol/ high density lipoprotein (HDL) cholesterol ratioOrdered By: Sunil Chavez on 01-02-2025 Cholesterol.total/Chol esterol in HDL [Mass ratio] 2.31 {ratio} [facility] Serum creatinine measurement (mass/volume)Ordered By: Sunil Chavez on 01-02-2025 Creatinine [Mass/Vol] 0.90 mg/dL 0.70-1.20 [facility] Serum globulin measurementOr dered By: Sunil Chavez on 01-02-2025 Globulin (S) [Mass/Vol] 2.2 g/dL 2.2-4.2 [facility] Serum glucose measurement (m ass/volume)Ordered By: Sunil Chavez on 01-02-2025 Glucose [Mass/Vol] 200 mg/dL High 70-99 [facility] Serum or plasma alanine mosqueda otransferase (ALT) measurementOrdered By: Sunil Chavez on 01-02-2025 ALT [Catalytic activity/Vol] 20 U/L <35 [facility] Serum or plasma albumin amy urement (mass/volume)Ordered By: Sunil Chavez on 01-02-2025 Albumin [Mass/Vol] 3.5 g/dL 3.4-4.8 [facility] Serum or plasma albumin/glob ulin mass ratioOrdered By: Sunil Chavez on 01-02-2025 Albumin/Globulin [Mass ratio] 1.6 {ratio} 0.9-2.4 [facility] Serum or plasma alkaline mor sphatase measurementOrdered By: Sunil Chavez on 01-02-2025 ALP [Catalytic activity/Vol] 78 U/L 35-104 [facility] Serum or plasma calcium amy urement (mass/volume)Ordered By: Sunil Chavez on 01-02-2025 Calcium [Mass/Vol] 8.2 mg/dL 7.6-11.0 [facility] Serum or plasma cholesterol in HDL measurement (mass/volume)Ordered By: Sunil Chavez on 01-02-2025 Cholesterol in HDL [Mass/Vol] 57 mg/dL >40 [facility] Comment on above: National Cholesterol Education Program (NCEP) guidelines:<40 mg/dL: Low HDL-cholesterol (major risk factor for CHD)>= 60 mg/dL: High HDL-cholesterol (negative risk factor for CHD)HDL-cholesterol is affected by a number of factors, e.g. smoking, exercise, hormones, sex and age. Serum or plasma cholesterol measurement (mass/volume)Ordered By: Sunil Chavez on 01-02-2025 Cholesterol [Mass/Vol] 132 mg/dL <201 [facility] Comment on above: Cholesterol level, D esirable <200 mg/dLBorderline high cholesterol 200-239 mg/dLHigh cholesterol >=240 mg/dLRecommendations of the NCEP Adult Treatment Panel for the following risk-cutoff thresholds for the [place] population. Serum or plasma urea nitroge n measurement (mass/volume)Ordered By: Sunil Chavez on 01-02-2025 Urea nitrogen [Mass/Vol] 13 mg/dL 4-19 [facility] Serum phosphorus measurement Ordered By: Sunil Chavez on 01-02-2025 Phosphorus Level 3.6 mg/dL 2.7-4.5 [facility] Sodium levelOrdered By: Tawanda Chavez on 01-02-2025 Sodium [Moles/Vol] 140 mmol/L 133-145 [facility] Thyroid Stim Hormone (TSH)on 01-02-2025 TSH 0.725 uIU/mL Normal 0.300-4.20 0 [facility] Comment on above: Performed By: #### L 500.4050, L500.4100, L100.0100, L501.9985, L501.9520 #### [facility] [address] [place], [address] Total proteinOrdered By: Marcos Chavez on 01-02-2025 Protein [Mass/Vol] 5.7 g/dL Low 5.9-8.4 [facility] Triglycerides measurementOrd ered By: Sunil Chavez on 01-02-2025 Triglyceride [Mass/Vol] 39 mg/dL <199 [facility] Comment on above: The drugs N-Acetylcy steine and Metamizole may falsely depress this assay. Normal range: <150 mg/dLBorderline High: 150-199 mg/dLHigh: 200-499 mg/dLVery High: >500 mg/dL White blood cell (WBC) count Ordered By: Sunil Chavez on 01-02-2025 WBC (Bld) [#/Vol] 5.2 10*3/uL 4.4-11.0 [facility] 12 Lead EKGon 01-01-2025 12 Lead EKG [facility] Cardi[facility] Services [address] [place] [address] 12 Lead EKG 01/01/25 1802 MR#: [id number] Acct: [id number] Name: TISH BUTLER Rep #: [id number] : 1950 74 From: Domenic Humphries MD Attending Dr: Dr. Tish Stokes DO Status: ADM I N Ordering Dr: Brent Rico DO Date: 01/01/25 Location: [facility] Sex: F C Admitted: 01/01/25 Test Reason : COLD SX Blood Pressure : */* mmHG Vent. Rate : 75 BPM Atrial Rate : * BPM P-R Int : * ms QRS Dur : 118 ms QT Int : 402 ms P-R-T Axes : * 0 14 degrees QTcB Int : 448 ms Normal sinus rhythm Low voltage QRS Incomplete right bundle branch block Abnormal ECG Confirmed by CHINMAY TAO, DOMENIC ([id number]), greeting card editor JILLIAN BERRY ([id number]) on 01/02/2025 8:31:09 AM Referred By: Confirmed By: DOMENIC HUMPHRIES MD 01/02/25 0831 Date Domenic Humphries MD CC: Dr. Mariola Magdaleno MD; Dr. Tish Stokes DO; Dr. Brent Rico DO Signed Normal [facility] Absolute neutrophil countOrd ered By: Brent Rico on 01-01-2025 Neutrophils (Bld) [#/Vol] 5.1 10*3/uL 2.0-7.7 [facility] Anion gap in Serum or Plasma Ordered By: Brent Rico on 01-01-2025 Anion gap [Moles/Vol] 13 mmol/L 5-15 [facility] BUN/creatinine ratioOrdered By: Brent Rico on 01-01-2025 Urea nitrogen/Creatinine [Mass ratio] 12.4 mg/mg - [facility] Bacteria LM.HPF (Urine sed) [#/Area]Ordered By: Brent Rico on 01-01-2025 Urine Bacteria RARE /hpf None Seen [facility] Basic Metabolic Profile (BMP )on 01-01-2025 BUN/CRE 12.4 RATIO Normal - [facility] Comment on above: Performed By: #### L 500.4050, L500.4100, L100.0100, L501.9985, L501.9520 #### [facility] [address] [place], [address] Calcium [Mass/Vol] 8.7 mg/dL Normal 7.6-11.0 [facility] Comment on above: Performed By: #### L 500.4050, L500.4100, L100.0100, L501.9985, L501.9520 #### [facility] [address] [place], [address] Chloride [Moles/Vol] 103 mmol/L Normal 98-108 [facility] Comment on above: Performed By: #### L 500.4050, L500.4100, L100.0100, L501.9985, L501.9520 #### [facility] [address] [place], [address] CO2 [Moles/Vol] 22.5 mmol/L Normal 21.0-32.0 [facility] Comment on above: Performed By: #### L 500.4050, L500.4100, L100.0100, L501.9985, L501.9520 #### [facility] [address] [place], [address] Creatinine [Mass/Vol] 1.05 mg/dL Normal 0.70-1.20 [facility] Comment on above: Performed By: #### L 500.4050, L500.4100, L100.0100, L501.9985, L501.9520 #### [facility] [address] [place], [address] ECRCL 54.87 ml/min Normal 50-250 [facility] Comment on above: Performed By: #### L 500.4050, L500.4100, L100.0100, L501.9985, L501.9520 #### [facility] [address] [place], [address] GAP 13 Normal 5-15 [facility] Comment on above: Performed By: #### L 500.4050, L500.4100, L100.0100, L501.9985, L501.9520 #### [facility] [address] [place], [address] GFR/1.73 sq M.predicted among non-blacks MDRD (S/P/Bld) [Vol rate/Area] 55 mL/min/{1.73_m2} Low >60 [facility] Comment on above: Result Comment: mL/m in/1.73m2 CKD-EPI Creatinine Equation (2020) Performed By: #### L 500.4050, L500.4100, L100.0100, L501.9985, L501.9520 #### [facility] [address] [place], [address] Glucose [Mass/Vol] 92 mg/dL Normal 70-99 [facility] Comment on above: Performed By: #### L 500.4050, L500.4100, L100.0100, L501.9985, L501.9520 #### [facility] [address] [place], [address] Potassium [Moles/Vol] 3.8 mmol/L Normal 3.3-5.1 [facility] Comment on above: Performed By: #### L 500.4050, L500.4100, L100.0100, L501.9985, L501.9520 #### [facility] [address] [place], [address] Sodium [Moles/Vol] 138 mmol/L Normal 133-145 [facility] Comment on above: Performed By: #### L 500.4050, L500.4100, L100.0100, L501.9985, L501.9520 #### [facility] [address] [place], [address] Urea nitrogen [Mass/Vol] 13 mg/dL Normal 4-19 [facility] Comment on above: Performed By: #### L 500.4050, L500.4100, L100.0100, L501.9985, L501.9520 #### [facility] [address] [place], [address] Basophil percentageOrdered B y: Brent Rico on 01-01-2025 Basophils/100 WBC (Bld) 0.6 % 0-1 [facility] Bedside Glucoseon 01-01-2025 FINGERSTICK GLU 155 mg/dL High 74-106 [facility] Comment on above: Result Comment: MARGARITO DELFINENT OF PATIENT CARE PER NURSING PROTOCOL Performed By: #### L 500.4050, L500.4100, L100.0100, L501.9985, L501.9520 #### [facility] [address] [place], [address] Bilirubin Test strip Ql (U)O rdered By: Brent Rico on 01-01-2025 Bilirubin Ql (U) Negative Negative [facility] CBC W/Diff, Automatedon 12-09 Absolute Lymph 0.49 X10 3/uL Low 0.83-4.51 [facility] Comment on above: Performed By: #### L 500.4050, L500.4100, L100.0100, L501.9985, L501.9520 #### [facility] [address] [place], [address] Absolute Neut 5.1 X10 3/uL Normal 2.0-7.7 [facility] Comment on above: Performed By: #### L 500.4050, L500.4100, L100.0100, L501.9985, L501.9520 #### [facility] [address] [place], [address] Basophils/100 WBC (Bld) 0.6 % Normal 0-1 [facility] Comment on above: Performed By: #### L 500.4050, L500.4100, L100.0100, L501.9985, L501.9520 #### [facility] [address] [place], [address] Eosinophils/100 WBC (Bld) 0.1 % Normal 0-5 [facility] Comment on above: Performed By: #### L 500.4050, L500.4100, L100.0100, L501.9985, L501.9520 #### [facility] [address] [place], [address] Erythrocyte distribution width (RBC) [Ratio] 13.4 % Normal 11.6-14.6 [facility] Comment on above: Performed By: #### L 500.4050, L500.4100, L100.0100, L501.9985, L501.9520 #### [facility] [address] [place], [address] Hematocrit (Bld) [Volume fraction] 38.6 % Normal 37-47 [facility] Comment on above: Performed By: #### L 500.4050, L500.4100, L100.0100, L501.9985, L501.9520 #### [facility] [address] [place], [address] Hemoglobin (Bld) [Mass/Vol] 12.6 g/dL Normal 12.0-15.0 [facility] Comment on above: Performed By: #### L 500.4050, L500.4100, L100.0100, L501.9985, L501.9520 #### [facility] [address] [place], [address] IG% 0.400 Normal 0.0-0.9 [facility] Comment on above: Result Comment: IG% - Immature Granulocytes (promyelocytes, myelocytes and metamyelocytes) > 1% indicates that a LEFT SHIFT is Present. Performed By: #### L 500.4050, L500.4100, L100.0100, L501.9985, L501.9520 #### [facility] [address] [place], [address] Lymphocytes/100 WBC (Bld) 7.2 % Low 19-41 [facility] Comment on above: Performed By: #### L 500.4050, L500.4100, L100.0100, L501.9985, L501.9520 #### [facility] [address] [place], [address] MCH (RBC) [Entitic mass] 30.1 pg Normal 27.0-32.0 [facility] Comment on above: Performed By: #### L 500.4050, L500.4100, L100.0100, L501.9985, L501.9520 #### [facility] [address] [place], [address] MCHC (RBC) [Mass/Vol] 32.6 g/dL Normal 32-36 [facility] Comment on above: Performed By: #### L 500.4050, L500.4100, L100.0100, L501.9985, L501.9520 #### [facility] [address] [place], [address] MCV (RBC) [Entitic vol] 92.1 fL Normal 81-99 [facility] Comment on above: Performed By: #### L 500.4050, L500.4100, L100.0100, L501.9985, L501.9520 #### [facility] [address] [place], [address] Monocytes/100 WBC (Bld) 17.1 % High 0-10 [facility] Comment on above: Performed By: #### L 500.4050, L500.4100, L100.0100, L501.9985, L501.9520 #### [facility] [address] [place], [address] Neutrophils/100 WBC (Bld) 74.6 % High 47-70 [facility] Comment on above: Performed By: #### L 500.4050, L500.4100, L100.0100, L501.9985, L501.9520 #### [facility] [address] [place], [address] Nucleated RBC (Bld) [#/Vol] 0 10*3/uL Normal 0-5 [facility] Comment on above: Performed By: #### L 500.4050, L500.4100, L100.0100, L501.9985, L501.9520 #### [facility] [address] [place], [address] Platelet mean volume (Bld) [Entitic vol] 10.3 fL Normal 6.2-12.0 [facility] Comment on above: Performed By: #### L 500.4050, L500.4100, L100.0100, L501.9985, L501.9520 #### [facility] [address] [place], [address] Platelets (Bld) [#/Vol] 175 10*3/uL Normal 150-450 [facility] Comment on above: Performed By: #### L 500.4050, L500.4100, L100.0100, L501.9985, L501.9520 #### [facility] [address] [place], [address] RBC (Bld) [#/Vol] 4.19 10*6/uL Low 4.2-5.4 [facility] Comment on above: Performed By: #### L 500.4050, L500.4100, L100.0100, L501.9985, L501.9520 #### [facility] [address] [place], [address] RDW SD 45.6 fl High 35.1-43.9 [facility] Comment on above: Performed By: #### L 500.4050, L500.4100, L100.0100, L501.9985, L501.9520 #### [facility] [address] [place], [address] WBC (Bld) [#/Vol] 6.8 10*3/uL Normal 4.4-11.0 [facility] Comment on above: Performed By: #### L 500.4050, L500.4100, L100.0100, L501.9985, L501.9520 #### [facility] [address] [place], [address] Carbon dioxide, total [Moles /volume] in Central venous bloodOrdered By: Brent Rico on 01-01-2025 CO2 [Moles/Vol] 22.5 mmol/L 21.0-32.0 [facility] Chest PA and Lateralon 01-01 Chest PA and Lateral [facility] Imaging Services [address] [place] [address] Chest PA and Lateral MR#: [id number] Acct: [id number] Name: TISH BUTLER Rep #: [id number] : 1950 F 74 From: Prince Dsouza i, MD PCP: Dr. Mariola Magdaleno MD Status: PRE ER Study: Chest PA and Lateral Date of Exam: 01/01/25 Exam# [id number] Ordering Dr: Brent Rico DO EXAM: Chest x-ray CLINICAL HISTORY: Cough, shortness of breath. COMPARISON: Chest x-ray dated 03/24/2023. TECHNIQUE: PA and lateral views of the chest. FINDINGS: Stable appearance of the left diaphragm which appears elevated. Streaky changes at the left lung base which were present dating back to 2022. No definite new infiltrate is seen throughout the lungs. The right lung remains clear. No acute osseous abnormality is seen. Degenerative changes seen within the spine. RAD/Chest PA and Lateral IMPRESSION: Stable left diaphragmatic elevation. Pulmonary findings are grossly unchanged when compared to prior examination dating back to 03/24/2023. Reading Location: [id number] CC: Dr. Mariola Magdaleno MD; Dr. Brent Rico DO Exhibit Designer: Signed Normal [facility] Chloride assayOrdered By: Santiago Rico on 01-01-2025 Chloride [Moles/Vol] 103 mmol/L 98-108 [facility] Emergency Department Summary on 01-01-2025 Emergency Department Summary [facility] [facility] [address] [place] [address] Emergency Department Summary 01/01/25 MR#: [id number] Acct: [id number] Name: TISH BUTLER YOLI Rep #: [id number] : 1950 74 From: Brent Rico DO PCP: Dr. Mariola Magdaleno MD Status:ADM IN Location: [facility] [id number] HPI History of Present Illness Chief Complaint: Cold Sx Narrative Narrative: Patient is a 74-year-old female with past medical history of GERD, diabetes, hypertension, SELENA, COPD on 2 L nasal cannula chronically who presents to the emergency department with a chief complaint of cough, generalized bodyaches, generalized weakness and not feeling well. Patient states that around Tuesday she started to feel ill and states that chronically got worse prompting her to come here for further evaluation management. Patient states that she was around some family members are ill recently as well. 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 Obesity Chronic respiratory failure with hypoxia, on home O2 therapy History of rheumatic fever Hyperlipidemia SELENA (obstructive sleep apnea) Osteoarthritis Paroxysmal atrial fibrillation (07/2020) Restless legs syndrome (RLS) H/O fibromyositis Fibromyalgia Essential tremor Depression Chronic low back pain Essential hypertension Class 2 obesity with body mass index (BMI) of 39.0 to 39.9 in adult Type 2 diabetes mellitus with diabetic polyneuropathy Vitamin D deficiency Vitamin B 12 deficiency Cor pulmonale Atrial fibrillation Irregular heart beat COPD (chronic obstructive pulmonary disease) Home Medications ???Medication ???Instructions ???Recorded ???Last Taken ???Type fluticasone propionate 50 2 spray intranasal DAILY 03/20/22 05/19/22 History mcg/actuation nasal spray,suspension loratadine 10 mg capsule 10 mg PO DAILY 03/20/22 Unknown Hi story aspirin 81 mg tablet,delayed 81 mg PO DAILY 04/02/22 04/23/22 H istory release (Adult Low Dose Aspirin) albuterol sulfate 90 mcg/actuation 2 puff inhalation Q6H PRN Unknown Rx aerosol inhaler shortness of breath or wheezing #8.5 grams albuterol sulfate 2.5 mg/3 mL 2.5 mg continuous nebulization 05/31 Unknown History (0.083 %) solution for nebulization emollient (Vanicream topical) applic topical 02/28/23 Unknown Hi story sodium chloride-aloe vera nasal 1 applic topical HS PRN 02/28/23 U nknown History gel ([place] Saline nasal gel) fluticasone fur. 200 mcg-umeclid 1 inh inhalation DAILY 04/11/23 Un known History 62.5 mcg-vilant 25 mcg inhalat.powder (Trelegy Ellipta) insulin glargine 100 unit/mL 32 unit subcut QPM 11/08/23 Unknow n History subcutaneous cartridge blood sugar diagnostic (Accu-Chek #300 ea 01/02/24 Unknown Rx SmartView Test Strips) blood-glucose meter (OneTouch #1 ea 03/19/24 Unknown Rx Verio Flex Meter) azelastine 137 mcg (0.1 %) nasal 1 spray intranasal BID PRN 4 Unknown Rx spray congestion #30 mL atorvastatin 40 mg tablet (Lipitor) 40 mg PO DAILY #90 tabs 4 Unknown Rx baclofen 10 mg tablet 10 mg PO TID PRN 05/02/24 Unknown History naproxen sodium 220 mg capsule 220 mg PO Q12H PRN 05/02/24 Unknow n History (Aleve) duloxetine 40 mg capsule,delayed 40 mg PO DAILY #90 caps 09/05/24 U nknown Rx release blood sugar diagnostic (OneTouch #100 ea 10/23/24 Unknown Rx Verio test strips) esomeprazole magnesium 40 mg 40 mg PO BID #180 caps 10/23/24 Un known Rx capsule,delayed release insulin glargine 100 unit/mL (3 32 unit (0.32 mL) subcut QPM #15 m L 10/23/24 Unknown Rx mL) subcutaneous pen lisinopril 5 mg tablet 5 mg PO DAILY #90 tabs 10/23/24 Un known Rx metoprolol succinate 50 mg 50 mg PO DAILY #90 tabs 10/23/24 U nknown Rx tablet,extended release 24 hr (Toprol XL) montelukast 10 mg tablet 10 mg PO QHS #90 tabs 10/23/24 Unk nown Rx potassium chloride 20 mEq 20 meq PO DAILY #90 TABLETS Unknown Rx tablet,extended release(part/cryst) (Klor-Con M) furosemide 20 mg tablet 40 mg (2 x 20 mg) PO BID #180 tabs 12/20/24 Unknown Rx insulin syringe-needle U-100 0.3 #50 ea 12/20/24 Unknown Rx mL 31 gauge x 5/16 (BD Insulin Syringe Ultra-Fine) (more content not included)... Normal [facility] Eosinophil percentageOrdered By: Brent Rico on 01-01-2025 Eosinophils/100 WBC (Bld) 0.1 % 0-5 [facility] Epithelial cells.squamous LM Ql (Urine sed)Ordered By: Brent Rico on 01-01-2025 Epithelial cells.squamous LM.HPF (Urine sed) [#/Area] 0 /[HPF] 5-10 [facility] Erythrocyte distribution wid th ratioOrdered By: Brent Rico on 01-01-2025 Erythrocyte distribution width (RBC) [Ratio] 13.4 % 11.6-14.6 [facility] Erythrocyte distribution wid th standard deviationOrdered By: Brent Rico on 01-01-2025 Erythrocyte distribution width (RBC) [Entitic vol] 45.6 fL High 35.1-43.9 [facility] Estimation of creatinine naveen aranceOrdered By: Brent Rico on 01-01-2025 Estimated Creatinine Clearance Calc 54.87 ml/min 50-250 [facility] FOLATES,SERUM (FOLIC ACID)on 01-01-2025 FOLATES,SERUM 9.11 ng/mL Normal 4.60-34.80 [facility] Comment on above: Performed By: #### L 500.4050, L500.4100, L100.0100, L501.9985, L501.9520 #### [facility] [employer] [address] [facility] [place], [address] Folate [Moles/Vol]Ordered By : Sunil Chavez on 01-01-2025 Serum Folate 9.11 ng/mL 4.60-34.80 [facility] GFR/1.73 sq M.predicted david g non-blacks MDRD (S/P/Bld) [Vol rate/Area]Ordered By: Brent Rico on 01-01-2025 Estimated GFR (MDRD) Non-Af Amer 55 Low >60 [facility] Comment on above: mL/min/1.73m2 CKD-EP I Creatinine Equation (2020) Glucose Ql (U)Ordered By: Santiago Rico on 01-01-2025 Urine Glucose (UA) Normal mg/dl Normal [facility] H AND P Exam - [facility] 01-01-2025 H&P Exam - Hospitalist [facility] Medical Records Department [address] [place] [address] H P Exam - Hospitalist 01/01/252114 MR#: [id number] Acct: [id number] Name: TISH BUTLER Rep #: [id number] : 1950 74 From: Sunil Muir DO PCP: Dr. Mariola Magdaleno MD Status:ADM IN Location: [facility] [id number] HPI - General General Date of Admission: 01/01/25 Date of Service: 01/01/25 Chief Complaint: SOB, Cough and Generalized Weakness. HPI Narrative TISH BUTLER, is a 74 F with a past history of essential hypertension; on lisinopril, metoprolol and furosemide 20 mg p.o. twice daily, hyperlipidemia; on atorvastatin, obesity; with BMI of 37.5 this admission, SELENA; on CPAP, history of tobacco abuse (quit 1979); with subsequent COPD, chronic hypoxic respiratory failure; on 2.5L NC continuous, history of tracheostomy ( 2013), DM-2; of unknown control on insulin glargine 32 units sq every PM, history rheumatic fever, history of paroxysmal atrial fibrillation (2019); on baby aspirin daily, history of cor pulmonale, history of RBBB and Left posterior fascicular block, history of thoracic outlet syndrome, history of vitamin D deficiency, history of vitamin B12 deficiency, seasonal allergies; on loratadine plus fluticasone nasal spray, RLS, history of fibromyalgia, depression; on duloxetine, history of TMJ dysfunction, history of hysterectomy, history of diverticulitis, history of umbilical hernia; s/p repair, GERD; on esomeprazole BID and OA; s/p TKR and radiofrequency ablation of a nerve of the cervical spine on naproxen twice daily plus baclofen 3 times daily for muscle spasms with patient using a walker at baseline for ambulation who presents to [facility] ER complaining of shortness of breath, cough and generalized weakness. Mrs. Butler reports her symptoms began on Sunday, December 29, 2024 with a gradual-onset of progressively worsening cough productive of yellowish sputum with generalized weakness. She also admits to worsening shortness of breath with chills. He was also sick with a similar viral illness just prior to her apparently catching it from him. She denies associated fever, changes in vision, chest pain, palpitations, heart racing, abdominal pain, nausea, vomiting, diarrhea, constipation, dysuria, hematuria, rash or headache. In the ER she was noted to have a viral assay returned positive for Influenza A complicated by clinical evidence of mild AE COPD with Grzsb-pv-[id number] Respiratory Insufficiency compounded by suspected Acute Bacterial Bronchitis with Generalized Weakness and she was then admitted to the general medical floor for ongoing care for stay that is expected to extend beyond 2 midnights. 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 Obesity Chronic respiratory failure with hypoxia, on home O2 therapy History of rheumatic fever Hyperlipidemia SELENA (obstructive sleep apnea) Osteoarthritis Paroxysmal atrial fibrillation (07/2020) Restless legs syndrome (RLS) H/O fibromyositis Fibromyalgia Essential tremor Depression Chronic low back pain Essential hypertension Class 2 obesity with body mass index (BMI) of 39.0 to 39.9 in adult Type 2 diabetes mellitus with diabetic polyneuropathy Vitamin D deficiency Vitamin B 12 deficiency Cor pulmonale Atrial fibrillation Irregular heart beat COPD (chronic obstructive pulmonary disease) Home Medications ???Medication ???Instructions ???Recorded ???Last Taken ???Type fluticasone propionate 50 2 spray intranasal DAILY 03/20/22 05/19/22 History mcg/actuation nasal spray,suspension loratadine 10 mg capsule 10 mg PO DAILY 03/20/22 Unknown Hi story aspirin 81 mg tablet,delayed 81 mg PO DAILY 04/02/22 04/23/22 H istory release (Adult Low Dose Aspirin) albuterol sulfate 90 mcg/actuation 2 puff inhalation Q6H PRN Unknown Rx aerosol inhaler shortness of breath or wheezing #8.5 grams albuterol sulfate 2.5 mg/3 mL 2.5 mg continuous nebulization 05/31 Unknown History (0.083 %) solution for nebulization emollient (Vanicream topical) applic topical 02/28/23 Unknown Hi story sodium chloride-aloe vera nasal 1 applic topical HS PRN 02/28/23 U nknown History gel ([place] Saline nasal gel) fluticasone fur. 200 (more content not included)... Normal [facility] Hematocrit Auto (Bld) [Volum e fraction]Ordered By: Brent Rico on 01-01-2025 Hematocrit (Bld) [Volume fraction] 38.6 % 37-47 [facility] Hemoglobin A1con 01-01-2025 HbA1c (Bld) [Mass fraction] 6.2 % Normal <=5.6 [facility] Comment on above: Performed By: #### L 500.4050, L500.4100, L100.0100, L501.9985, L501.9520 #### [facility] [address] [place] [address]. [place], [place], [id number] Hemoglobin A1c percentageOrd ered By: Sunil Chavez on 01-01-2025 HbA1c (Bld) [Mass fraction] 6.2 % >5.7 [facility] Hemoglobin measurementOrdere d By: Brent Rico on 01-01-2025 Hemoglobin (Bld) [Mass/Vol] 12.6 g/dL 12.0-15.0 [facility] Immature granulocytes/100 WB C Auto (Bld)Ordered By: Brent Rico on 01-01-2025 Immature granulocytes/100 WBC (Bld) 0.400 % 0.0-0.9 [facility] Comment on above: IG% - Immature Granu locytes (promyelocytes, myelocytes and metamyelocytes) > 1% indicates that a LEFT SHIFT is Present. Influenza virus A and B and SARS-CoV-2 (COVID-19) and Respiratory syncytial virus RNAOrdered By: Brent Rico on 01-01-2025 SARS-CoV-2 (COVID-19) RNA TOMAS+probe Ql (Unsp spec) Influenzae A Abnormal [facility] International normalized rat io (INR) calculationOrdered By: Brent Rico on 03-25-2025 INR Coag (Bld) [Relative time] 1.2 {INR} [facility] Ketones Test strip Ql (U)Ord ered By: Brent Rico on 01-01-2025 Ketones Ql (U) Negative Negative [facility] L499.0042on 01-01-2025 Trop T High Sen 19 ng/L High <=14 [facility] Comment on above: Performed By: #### L 499.0042 #### [facility] [address] [place], [address] L499.0043on 01-01-2025 Trop T High Sen 18 ng/L High <=14 [facility] Comment on above: Performed By: #### L 500.4050, L500.4100, L100.0100, L501.9985, L501.9520 #### [facility] [address] [place], [address] L501.4021on 01-01-2025 Trop T High Sen 19 ng/L High <=14 [facility] Comment on above: Performed By: #### L 500.4050, L500.4100, L100.0100, L501.9985, L501.9520 #### [facility] [address] [place], [address] L503.7505on 01-01-2025 Natriuretic peptide B (Bld) [Mass/Vol] 732 pg/mL Normal <=1800 [facility] Comment on above: Result Comment: Hear t Failure Unlikely: < 300 pg/mL Heart Failure Likely < 50 Years: > 450 pg/mL 50-75 Years: > 900 pg/mL >75 Years: > 1800 pg/mL Performed By: #### L 500.4050, L500.4100, L100.0100, L501.9985, L501.9520 #### [facility] [address] [place], [address] Laboratory - Chemistry and C hemistry - challengeOrdered By: Brent Rico on 01-01-2025 Natriuretic peptide B (Bld) [Mass/Vol] 732 pg/mL <1800 [facility] Comment on above: Heart Failure Unlike ly: < 300 pg/mLHeart Failure Likely< 50 Years: > 450 pg/mL50-75 Years: > 900 pg/mL>75 Years: > 1800 pg/mL Lactic Acidon 01-01-2025 Lactate [Moles/Vol] 1.1 mmol/L Normal 0.0-2.0 [facility] Comment on above: Order Comment: Y Performed By: #### L 500.4050, L500.4100, L100.0100, L501.9985, L501.9520 #### [facility] [address] [place], [address] Lactic acid measurementOrder ed By: Brent Rico on 01-01-2025 Lactate [Moles/Vol] 1.1 mmol/L 0.0-2.0 [facility] Lymphocytes Auto (Unsp spec) [#/Vol]Ordered By: Brent Rico on 01-01-2025 Lymphocytes (Bld) [#/Vol] 0.49 10*3/uL Low 0.83-4.51 [facility] Lymphocytes/100 WBC Auto (Un sp spec)Ordered By: Brent Rico on 01-01-2025 Lymphocytes/100 WBC (Bld) 7.2 % Low 19-41 [facility] M100.678on 01-01-2025 M100.678 RESULTS CALLED TO HOLLY 01/01/25 1859 hSerrie Gatica. REPORT READ BACK BY SAME. Pending SARS-CoV-2 (COVID 19) Negative INFLUENZA A A Positive A INFLUENZA B Negative RSV PCR Negative INFLUENZAE A Normal [facility] Comment on above: Performed By: #### L 500.4050, L500.4100, L100.0100, L501.9985, L501.9520 #### [facility] [address] [place], [place], [id number] MCV (mean corpuscular volume ) determinationOrdered By: Brent Rico on 01-01-2025 MCV (RBC) [Entitic vol] 92.1 fL 81-99 [facility] Magnesiumon 01-01-2025 Magnesium [Mass/Vol] 1.8 mg/dL Normal 1.5-2.2 [facility] Comment on above: Performed By: #### L 500.4050, L500.4100, L100.0100, L501.1762, L501.6060 #### [facility] [address] [place], [address] Magnesium (Unsp spec) [Mass/ Vol]Ordered By: Sunil Chavez on 01-01-2025 Magnesium [Mass/Vol] 1.8 mg/dL 1.5-2.2 [facility] Mean corpuscular hemoglobin (MCH) determinationOrdered By: Brent Rico on 01-01-2025 MCH (RBC) [Entitic mass] 30.1 pg 27.0-32.0 [facility] Mean corpuscular hemoglobin concentration (MCHC) determinationOrdered By: Brent Rico on 01-01-2025 MCHC (RBC) [Mass/Vol] 32.6 g/dL 32-36 [facility] Mean platelet volume determi nationOrdered By: Brent Rico on 01-01-2025 Platelet mean volume (Bld) [Entitic vol] 10.3 fL 6.2-12.0 [facility] Microscopic analysis of urin e for red blood cells (RBC)Ordered By: Brent Rico on 01-01-2025 Urine RBC 0 SEEN /hpf 0-5 [facility] Monocyte percentageOrdered B y: Brent Rico on 01-01-2025 Monocytes/100 WBC (Bld) 17.1 % High 0-10 [facility] Mucus LM Ql (Urine sed)Order ed By: Brent Rico on 01-01-2025 Mucus Ql (Urine sed) 0 SEEN /hpf [facility] Neutrophil percentageOrdered By: Brent Rico on 01-01-2025 Neutrophils/100 WBC (Bld) 74.6 % High 47-70 [facility] Nitrite Test strip Ql (U)Ord ered By: Brent Rico on 01-01-2025 Nitrite Ql (U) Negative Negative [facility] No Panel InformationOrdered By: Brent Rico on 01-01-2025 Troponin T High Sensitivity 19 ng/L High <14 [facility] Nucleated red blood cell per centageOrdered By: Brent Rico on 01-01-2025 Nucleated RBC/100 WBC (Bld) [Ratio] 0 % 0-5 [facility] Partial Thromboplast Timeon 01-01-2025 aPTT Coag (Bld) [Time] 30.4 s Normal 24.1-36.2 [facility] Comment on above: Performed By: #### L 500.4050, L500.4100, L100.0100, L501.9985, L501.9520 #### [facility] [address] [place], [place], [id number] Platelet countOrdered By: Santiago Rico on 01-01-2025 Platelets (Bld) [#/Vol] 175 10*3/uL 150-450 [facility] Potassium (Unsp spec) [Mass/ Vol]Ordered By: Brent Rico on 01-01-2025 Potassium [Moles/Vol] 3.8 mmol/L 3.3-5.1 [facility] Protein Test strip Ql (U)Ord ered By: Brent Rico on 01-01-2025 Protein Ql (U) 30 mg/dl High Negative [facility] Prothrombin Time w/INRon INR Coag (PPP) [Relative time] 1.2 {INR} Normal [facility] Comment on above: Performed By: #### L 500.4050, L500.4100, L100.0100, L501.9985, L501.9520 #### [facility] [address] [place], [address] PT Coag (PPP) [Time] 15.1 s High 11.7-14.9 [facility] Comment on above: Performed By: #### L 500.4050, L500.4100, L100.0100, L501.9985, L501.9520 #### [facility] [address] [place], [address] Prothrombin timeOrdered By: Brent Rico on 01-01-2025 PT Coag (PPP) [Time] 15.1 s High 11.7-14.9 [facility] RBC Auto (Bld) [#/Vol]Ordere d By: Brent Rico on 01-01-2025 RBC (Bld) [#/Vol] 4.19 10*6/uL Low 4.2-5.4 [facility] Serum creatinine measurement (mass/volume)Ordered By: Brent Rico on 01-01-2025 Creatinine [Mass/Vol] 1.05 mg/dL 0.70-1.20 [facility] Serum glucose measurement (m ass/volume)Ordered By: Brent Rico on 01-01-2025 Glucose [Mass/Vol] 92 mg/dL 70-99 [facility] Serum or plasma calcium amy urement (mass/volume)Ordered By: Brent Rico on 01-01-2025 Calcium [Mass/Vol] 8.7 mg/dL 7.6-11.0 [facility] Serum or plasma urea nitroge n measurement (mass/volume)Ordered By: Brent Rico on 01-01-2025 Urea nitrogen [Mass/Vol] 13 mg/dL 4-19 [facility] Sodium levelOrdered By: Carole Rico on 01-01-2025 Sodium [Moles/Vol] 138 mmol/L 133-145 [facility] TSH DL <= 0.005 mIU/L QnOrde red By: Sunil Chavez on 01-01-2025 Thyroid Stimulating Hormone (TSH) 0.725 uIU/mL 0.300-4.20 0 [facility] Troponin T.cardiac High sens itivity method [Mass/Vol]Ordered By: Brent Rico on 01-01-2025 Troponin T High Sensitivity 4 Hour 18 ng/L High <14 [facility] Troponin T High Sensitivity 2 Hour 19 ng/L High <14 [facility] Urinalysis, Completeon 01-01 BACTERIA RARE Normal None Seen [facility] Comment on above: Order Comment: COLLE CTOR TO SPECIFY Performed By: #### L 500.4050, L500.4100, L100.0100, L501.9985, L501.9520 #### [facility] [address] [place], [address] EPI,SQUAMOUS 0-5 SEEN Normal 5-10 [facility] Comment on above: Order Comment: DANIEL CTOR TO SPECIFY Performed By: #### L 500.4050, L500.4100, L100.0100, L501.9985, L501.9520 #### [facility] [address] [place], [address] RBC 0 SEEN Normal 0-5 [facility] Comment on above: Order Comment: DANIEL CTOR TO SPECIFY Performed By: #### L 500.4050, L500.4100, L100.0100, L501.9985, L501.9520 #### [facility] [address] [place], [address] WBC 0-5 SEEN Normal 0-5 [facility] Comment on above: Order Comment: DANIEL CTOR TO SPECIFY Performed By: #### L 500.4050, L500.4100, L100.0100, L501.9985, L501.9520 #### [facility] [address] [place], [address] Mucus Ql (Urine sed) 0 SEEN Normal [facility] Comment on above: Order Comment: DANIEL CTOR TO SPECIFY Performed By: #### L 500.4050, L500.4100, L100.0100, L501.9985, L501.9520 #### [facility] [address] [place], [address] Urine blood detectionOrdered By: Brent Rico on 01-01-2025 Urine Occult Blood 10 /ul High Negative [facility] Urine clarityOrdered By: Alexandra Rico on 01-01-2025 Clarity (U) Sl. Cloudy Clear [facility] Urine color determinationOrd ered By: Brent Rico on 01-01-2025 Color (U) Yellow Yellow [facility] Urine leukocyte esterase det ection by dipstickOrdered By: Brent Rico on 01-01-2025 Leukocyte esterase Test strip Ql (U) 25 /ul High Negative [facility] Urine pHOrdered By: Brent caro on 01-01-2025 pH (U) 6.0 [pH] 5.0 - 8.0 [facility] Urine specific gravity measu rementOrdered By: Brent Rico on 01-01-2025 Specific gravity (U) [Rel density] 1.020 1.002-1.03 0 [facility] Urobilinogen Ql (U)Ordered B y: Brent Rico on 01-01-2025 Urine Urobilinogen Normal mg/dl Normal [facility] Vitamin B12 ser/plasOrdered By: Sunil Chavez on 01-01-2025 Cobalamin (Vitamin B12) [Mass/Vol] 334 pg/mL 180-914 [facility] White blood cell (WBC) count Ordered By: Brent Rico on 01-01-2025 WBC (Bld) [#/Vol] 6.8 10*3/uL 4.4-11.0 [facility] White blood cell countOrdere d By: Brent Rico on 01-01-2025 Urine WBC 0-5 SEEN /hpf 0-5 [facility] aPTT Coag (PPP) [Time]Ordere d By: Brent Rico on 01-01-2025 aPTT Coag (Bld) [Time] 30.4 s 24.1-36.2 [facility] CNOVon 12-17-2024 CNOV Office Visit (PULMWS ) ----- TISH BUTLER ([id number]) 1950 F Date Time Provider Department 12/17/24 11:45 AM TARA KHOURY PULMWS During your visit today, we recorded the following information about you: Pulse Respiration Blood pressure Weight 76/minute 17/minute 133/81 103 kg Tara Khoury MD 12/17/2024 7:55 PM Signed . 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 Inhaled therapy with Trelegy and albuterol. No recent URI or hospitalization. She denies any chronic cough, mucus production, wheezing or chest pain. Main symptom is dyspnea on exertion. She is compliant with use of her supplemental oxygen. DME: [employer] 2 L PAST MEDICAL HISTORY Diagnosis Date Allergies Asthma Atrial fibrillation (HCC) B12 deficiency Chronic low back pain Chronic respiratory failure with hypoxia (HCC) CKD (chronic kidney disease) COPD (chronic obstructive pulmonary disease) (HCC) Cor pulmonale (HCC) Depression Diabetes mellitus (HCC) Fibromyalgia GERD (gastroesophageal reflux disease) H/O fibromyositis HTN (hypertension) Mixed hyperlipidemia Morbid obesity (HCC) SELENA (obstructive sleep apnea) Osteoarthritis of multiple joints Rheumatic fever RLS (restless legs syndrome) Thoracic outlet syndrome Tracheal stenosis following tracheostomy (HCC) Vitamin D deficiency ALLERGIES Allergen Reactions Demerol [Meperidine] Itching Grass Pollen Shortness of Breath House Dust Unknown Mold Unknown Penicillins Unknown Tree And Shrub Poll* Unknown Vicodin [Hydrocodon* Unknown esomeprazole (NEXIUM) 40 mg capsule Take 40 mg by mouth once daily. montelukast (SINGULAIR) 10 mg tablet Take 1 tablet by mouth daily at bedtime. azelastine 0.1% nasal spray USE 1 SPRAY(S) IN EACH NOSTRIL TWICE DAILY OXYGEN, HOME THERAPY, 2 L/min by Nasal Cannula route continuous. fluticasone (FLONASE) 50 mcg/actuation nasal spray Use 1 [place] in each nostril once daily. duloxetine HCl (DULOXETINE ORAL) Take 40 mg by mouth once daily. albuterol (PROVENTIL) 2.5 mg /3 mL (0.083 %) nebulizer solution Use 3 mL via nebulizer every 4 hours as needed. baclofen (LIORESAL) 10 mg tablet Take 10 mg by mouth three times daily. lisinopril (ZESTRIL, PRINIVIL) 5 mg tablet Take 5 mg by mouth once daily. loratadine 10 mg cap Take 10 mg by mouth once daily. insulin aspart U-100 (NOVOLOG) 100 unit/mL Inject subcutaneously. insulin glargine (LANTUS) 100 unit/mL injection Inject 34 Units subcutaneously daily at bedtime. ipratropium-albuterol (DUONEB) 0.5 mg-3 mg(2.5 mg base)/3 mL nebu Inhale 3 mL as instructed every 6 hours as needed. potassium chloride ER (K-DUR, KLOR-CON) 20 mEq tablet Take by mouth once daily. atorvastatin (LIPITOR) 40 mg tablet Take by mouth once daily. furosemide (LASIX) 20 mg tablet Take 20 mg by mouth. metoprolol succinate ER (TOPROL XL) 50 mg 24 hr tablet Take 50 mg by mouth once daily. aspirin, enteric coated (ASPIRIN, ENTERIC COATED) 81 mg EC tablet Take 81 mg by mouth once daily. zaifkcwloqx-mchahhlot-rif anter (TRELEGY ELLIPTA) 200-62.5-25 mcg inhalation powder Inhale 1 Puff as instructed once daily. albuterol HFA (PROVENTIL HFA, VENTOLIN HFA) 90 mcg/actuation inhaler Inhale 2 Puffs as instructed every 4 hours as needed. Social History Tobacco Use Smoking status: Former Current packs/day: 0.00 Average packs/day: 1 pack/day for 25.0 years (25.0 ttl pk-yrs) Types: Cigarettes Start date: 02/07/1955 Quit date: 02/08/1980 Years since quittin.8 Smokeless tobacco: Never Vaping Use Vaping status: Never Used Substance Use Topics Alcohol use: Not Currently Drug use: Never PMH, Social history, family history and surgical history reviewed and updated in EMR REVIEW OF SYSTEMS: CONSTITUTIONAL: No fevers, chills, nightsweats, unintended weight loss HEENT: Denies current nasal congestion/sinus symptoms, allergy problems. CARDIOVASCULAR: No chest pain, palpitations, orthopnea, edema. PULM: See HPI. No nocturnal awakenings, no need for albuterol GI: No dysphagia/odynophagia, problematic reflux INTEGUMENTARY: No new skin changes PHYSICAL EXAMINATION: BP 133/81 Pulse 76 Resp 17 Wt 227 lb (103.0kg) SpO2 95% General Appearance: Obese female, NAD. Skin: Skin color, texture, turgor normal, no suspicious rashes or lesions. Head: Normocephalic, no masses, lesions, tenderness or abnormalities. Oropharynx: No oral lesions or thrush. Neck: Old tracheostomy scar. No stridor Lungs: Not labored, norm (more content not included)... [facility] ----- TISH BUTLER ([id number]) 1950 F Date Time Provider Department 10/23/24 TARA KHOURY During your visit today, we recorded the following information about you: Edda Frances LPN 10/23/2024 10:18 AM Signed Patient would like a POC order sent to [facility]. Her POC has broken as of July and she currently is using E cylinders and carts for portability. Order pended. DME [facility] Should [facility] not be able to provide, patient plans to inquire with [employer]. CAM Peterson Christine M, APRN.[facility] 10/26/2024 3:30 PM Signed Order placed Edda Frances LPN 10/26/2024 3:46 PM Signed Faxed to [facility] Edda Frances LPN Allergies As of Date: 10/23/2024 Noted Allergy Reaction DEMEROL (MEPERIDINE) 05/13/2022 9 - Itching GRASS POLLEN 05/14/2022 12 - Shortness of Breath HOUSE DUST 05/13/2022 16 - Unknown MOLD 05/13/2022 16 - Unknown PENICILLINS 05/13/2022 16 - Unknown TREE AND SHRUB POLLEN 05/13/2022 16 - Unknown VICODIN (HYDROCODONE-ACETAMINOPHE *05/13/2022 16 - Unknown Date Reviewed: 06/18/2024 Reviewed by: Daniel Rubio RPFT - Fully Assessed Reason for Visit: Orders [681] Primary Visit Diagnosis:Acute and chronic respiratory failure with hypoxia (HCC) [J96.21] Order(s):PORTABLE OXYGEN CONCENTRATOR [[id number]] Order #: [id number] Prescriptions as of 10/26/2024 - esomeprazole (NEXIUM) 40 mg capsule Take 40 mg by mouth once daily. - montelukast (SINGULAIR) 10 mg tablet Take 1 tablet by mouth daily at bedtime. - ewewswseege-zkvwzenzm-oxi anter (TRELEGY ELLIPTA) 200-62.5-25 mcg inhalation powder Inhale 1 Puff as instructed once daily. - azelastine 0.1% nasal spray USE 1 SPRAY(S) IN EACH NOSTRIL TWICE DAILY - OXYGEN, HOME THERAPY, 2 L/min by Nasal Cannula route continuous. - fluticasone (FLONASE) 50 mcg/actuation nasal spray Use 1 [place] in each nostril once daily. - duloxetine HCl (DULOXETINE ORAL) Take 40 mg by mouth once daily. - albuterol (PROVENTIL) 2.5 mg /3 mL (0.083 %) nebulizer solution Use 3 mL via nebulizer every 4 hours as needed. - baclofen (LIORESAL) 10 mg tablet Take 10 mg by mouth three times daily. - lisinopril (ZESTRIL, PRINIVIL) 5 mg tablet Take 5 mg by mouth once daily. - loratadine 10 mg cap Take 10 mg by mouth once daily. - insulin aspart U-100 (NOVOLOG) 100 unit/mL Inject subcutaneously. - insulin glargine (LANTUS) 100 unit/mL injection Inject 34 Units subcutaneously daily at bedtime. - ipratropium-albuterol (DUONEB) 0.5 mg-3 mg(2.5 mg base)/3 mL nebu Inhale 3 mL as instructed every 6 hours as needed. - potassium chloride ER (K-DUR, KLOR-CON) 20 mEq tablet Take by mouth once daily. - atorvastatin (LIPITOR) 40 mg tablet Take by mouth once daily. - furosemide (LASIX) 20 mg tablet Take 20 mg by mouth. - metoprolol succinate ER (TOPROL XL) 50 mg 24 hr tablet Take 50 mg by mouth once daily. - aspirin, enteric coated (ASPIRIN, ENTERIC COATED) 81 mg EC tablet Take 81 mg by mouth once daily. Problem List As Of Date 10/23/2024 Noted Resolved Asthma-COPD overlap syndrome (HCC) [J44.89] 05/14/2022 Chronic hypoxemic respiratory failure (HCC) [J9*05/14/2022 History of tracheostomy [Z98.890] 05/14/2022 Former cigarette smoker [Z87.891] 05/14/2022 Morbid obesity (HCC) [E66.01] 05/14/2022 Obesity, Class II, BMI 35-39.9 [E66.812] 12/09/2023 Encounter Status:Closed by CLICK, CHERRY Rodriguez on 10/26/24 Normal [facility] CBC W/Diff, Automatedon - Absolute Lymph 1.24 X10 3/uL Normal 0.83-4.51 [facility] Comment on above: Performed By: #### L 500.4050, L500.4100, L100.0100, L501.9985, L501.9520 #### [facility] [address] [place], [address] Absolute Neut 5.0 X10 3/uL Normal 2.0-7.7 [facility] Comment on above: Performed By: #### L 500.4050, L500.4100, L100.0100, L501.9985, L501.9520 #### [facility] [address] [place], [address] Basophils/100 WBC (Bld) 0.8 % Normal 0-1 [facility] Comment on above: Performed By: #### L 500.4050, L500.4100, L100.0100, L501.9985, L501.9520 #### [facility] [address] [place], [address] Eosinophils/100 WBC (Bld) 2.4 % Normal 0-5 [facility] Comment on above: Performed By: #### L 500.4050, L500.4100, L100.0100, L501.9985, L501.9520 #### [facility] [address] [place], [address] Erythrocyte distribution width (RBC) [Ratio] 13.1 % Normal 11.6-14.6 [facility] Comment on above: Performed By: #### L 500.4050, L500.4100, L100.0100, L501.9985, L501.9520 #### [facility] [address] [place], [address] Hematocrit (Bld) [Volume fraction] 43.0 % Normal 37-47 [facility] Comment on above: Performed By: #### L 500.4050, L500.4100, L100.0100, L501.9985, L501.9520 #### [facility] [address] [place], [address] Hemoglobin (Bld) [Mass/Vol] 13.7 g/dL Normal 12.0-15.0 [facility] Comment on above: Performed By: #### L 500.4050, L500.4100, L100.0100, L501.9985, L501.9520 #### [facility] [address] [place], [address] IG% 0.400 Normal 0.0-0.9 [facility] Comment on above: Result Comment: IG% - Immature Granulocytes (promyelocytes, myelocytes and metamyelocytes) > 1% indicates that a LEFT SHIFT is Present. Performed By: #### L 500.4050, L500.4100, L100.0100, L501.9985, L501.9520 #### [facility] [address] [place], [address] Lymphocytes/100 WBC (Bld) 17.3 % Low 19-41 [facility] Comment on above: Performed By: #### L 500.4050, L500.4100, L100.0100, L501.9985, L501.9520 #### [facility] [address] [place], [address] MCH (RBC) [Entitic mass] 29.4 pg Normal 27.0-32.0 [facility] Comment on above: Performed By: #### L 500.4050, L500.4100, L100.0100, L501.9985, L501.9520 #### [facility] [address] [place], [address] MCHC (RBC) [Mass/Vol] 31.9 g/dL Low 32-36 [facility] Comment on above: Performed By: #### L 500.4050, L500.4100, L100.0100, L501.9985, L501.9520 #### [facility] [address] [place], [address] MCV (RBC) [Entitic vol] 92.3 fL Normal 81-99 [facility] Comment on above: Performed By: #### L 500.4050, L500.4100, L100.0100, L501.9985, L501.9520 #### [facility] [address] [place], [address] Monocytes/100 WBC (Bld) 8.9 % Normal 0-10 [facility] Comment on above: Performed By: #### L 500.4050, L500.4100, L100.0100, L501.9985, L501.9520 #### [facility] [address] [place], [address] Neutrophils/100 WBC (Bld) 70.2 % High 47-70 [facility] Comment on above: Performed By: #### L 500.4050, L500.4100, L100.0100, L501.9985, L501.9520 #### [facility] [address] [place], [address] Nucleated RBC (Bld) [#/Vol] 0 10*3/uL Normal 0-5 [facility] Comment on above: Performed By: #### L 500.4050, L500.4100, L100.0100, L501.9985, L501.9520 #### [facility] [address] [place], [address] Platelet mean volume (Bld) [Entitic vol] 11.1 fL Normal 6.2-12.0 [facility] Comment on above: Performed By: #### L 500.4050, L500.4100, L100.0100, L501.9985, L501.9520 #### [facility] [address] [place], [address] Platelets (Bld) [#/Vol] 230 10*3/uL Normal 150-450 [facility] Comment on above: Performed By: #### L 500.4050, L500.4100, L100.0100, L501.9985, L501.9520 #### [facility] [address] [place], [address] RBC (Bld) [#/Vol] 4.66 10*6/uL Normal 4.2-5.4 [facility] Comment on above: Performed By: #### L 500.4050, L500.4100, L100.0100, L501.9985, L501.9520 #### [facility] [address] [place], [address] RDW SD 44.4 fl High 35.1-43.9 [facility] Comment on above: Performed By: #### L 500.4050, L500.4100, L100.0100, L501.9985, L501.9520 #### [facility] [address] [place], [address] WBC (Bld) [#/Vol] 7.2 10*3/uL Normal 4.4-11.0 [facility] Comment on above: Performed By: #### L 500.4050, L500.4100, L100.0100, L501.9985, L501.9520 #### [facility] [address] [place], [address] Comprehensive Metabolic Prof ilon 07-06-2024 Albumin [Mass/Vol] 3.7 g/dL Normal 3.2-5.0 [facility] Comment on above: Performed By: #### L 500.4050, L500.4100, L100.0100, L501.9985, L501.9520 #### [facility] [address] [place], [address] Albumin/Globulin [Mass ratio] 1.2 {ratio} Normal 0.9-2.4 [facility] Comment on above: Performed By: #### L 500.4050, L500.4100, L100.0100, L501.9985, L501.9520 #### [facility] [address] [place], [address] ALK P 85 U/L Normal 45-117 [facility] Comment on above: Performed By: #### L 500.4050, L500.4100, L100.0100, L501.9985, L501.9520 #### [facility] [address] [place], [address] ALT [Catalytic activity/Vol] 21 U/L Normal 13-56 [facility] Comment on above: Performed By: #### L 500.4050, L500.4100, L100.0100, L501.9985, L501.9520 #### [facility] [address] [place], [address] AST [Catalytic activity/Vol] 13 U/L Low 15-37 [facility] Comment on above: Performed By: #### L 500.4050, L500.4100, L100.0100, L501.9985, L501.9520 #### [facility] [address] [place], [address] Bilirubin [Mass/Vol] 0.70 mg/dL Normal 0.20-1.00 [facility] Comment on above: Result Comment: For patients on eltrombopag therapy, use of Dimension [place] TBIL is not recommended. Performed By: #### L 500.4050, L500.4100, L100.0100, L501.9985, L501.9520 #### [facility] [address] [place], [address] BUN/CRE 18.4 RATIO Normal 10-20 [facility] Comment on above: Performed By: #### L 500.4050, L500.4100, L100.0100, L501.9985, L501.9520 #### [facility] [address] [place], [address] CA,Total 9.1 mg/dL Normal 8.5-10.1 [facility] Comment on above: Performed By: #### L 500.4050, L500.4100, L100.0100, L501.9985, L501.9520 #### [facility] [address] [place], [address] Chloride [Moles/Vol] 105 mmol/L Normal 98-107 [facility] Comment on above: Performed By: #### L 500.4050, L500.4100, L100.0100, L501.9985, L501.9520 #### [facility] [address] [place], [address] CO2 [Moles/Vol] 30.0 mmol/L Normal 21.0-32.0 [facility] Comment on above: Performed By: #### L 500.4050, L500.4100, L100.0100, L501.9985, L501.9520 #### [facility] [address] [place], [address] Creatinine [Mass/Vol] 1.03 mg/dL High 0.55-1.02 [facility] Comment on above: Result Comment: The validity of the calculated GFR GFRAA in patients over 70 years has not been determined. Clinical correlation is essential. Performed By: #### L 500.4050, L500.4100, L100.0100, L501.9985, L501.9520 #### [facility] [address] [place], [address] EST GFR - AA 67 mL/min Normal >60 [facility] Comment on above: Result Comment: Afri can [place] GFR Calc Performed By: #### L 500.4050, L500.4100, L100.0100, L501.9985, L501.9520 #### [facility] [address] [place], [address] GAP 5 Normal 5-15 [facility] Comment on above: Performed By: #### L 500.4050, L500.4100, L100.0100, L501.9985, L501.9520 #### [facility] [address] [place], [address] GFR/1.73 sq M.predicted among non-blacks MDRD (S/P/Bld) [Vol rate/Area] 56 mL/min/{1.73_m2} Low >60 [facility] Comment on above: Result Comment: Non- GFR Calc Performed By: #### L 500.4050, L500.4100, L100.0100, L501.9985, L501.9520 #### [facility] [address] [place], [address] Globulin (S) [Mass/Vol] 3.1 g/dL Normal 2.2-4.2 [facility] Comment on above: Performed By: #### L 500.4050, L500.4100, L100.0100, L501.9985, L501.9520 #### [facility] [address] [place], [address] Glucose [Mass/Vol] 114 mg/dL High 74-106 [facility] Comment on above: Result Comment: Fast ing Glucose result from 100 to 125 mg/dL suggests IMPAIRED HOMEOSTASIS per A.D.A. criteria. Performed By: #### L 500.4050, L500.4100, L100.0100, L501.9985, L501.9520 #### [facility] [address] [place], [address] Potassium [Moles/Vol] 4.6 mmol/L Normal 3.5-5.1 [facility] Comment on above: Performed By: #### L 500.4050, L500.4100, L100.0100, L501.9985, L501.9520 #### [facility] [address] [place], [address] Sodium [Moles/Vol] 140 mmol/L Normal 136-145 [facility] Comment on above: Performed By: #### L 500.4050, L500.4100, L100.0100, L501.9985, L501.9520 #### [facility] [address] [place], [address] T PROT 6.8 g/dL Normal 6.4-8.2 [facility] Comment on above: Performed By: #### L 500.4050, L500.4100, L100.0100, L501.9985, L501.9520 #### [facility] [address] [place], [address] Urea nitrogen [Mass/Vol] 19 mg/dL High 7-18 [facility] Comment on above: Performed By: #### L 500.4050, L500.4100, L100.0100, L501.9985, L501.9520 #### [facility] [address] [place], [address] Hemoglobin A1con 07-06-2024 HbA1c (Bld) [Mass fraction] 6.4 % High 3.8-5.6 [facility] Comment on above: Result Comment: Norm al < 5.7 % Prediabetic 5.7 - 6.4 % Diabetic >or= 6.5 % Please note range changes. Performed By: #### L 500.4050, L500.4100, L100.0100, L501.9985, L501.9520 #### [facility] [address] [place], [address] Internal Medicine Office Vis iton 07-06-2024 Internal Medicine Office Visit [facility] [address] [place] [address] [place] [address] OFFICE VISIT Date of Service: 07/06/24 MR#: [id number] Acct: [id number] Name: TISH BUTLER Rep #: [id number] : 1950 Provider: CHRISTIANO Burgos Age/Sex: 74/F Location: [facility] [place] Status: Signed Intake Vital Signs 01/02/24 10:07 05/02/24 13:40 07/06/24 10:39 Height 5 ft 5 in 5 ft 5 in 5 ft 5 in Weight: 226 lb 224 lb 4 oz BMI 37.5 37.3 BP 109/67 122/82 H Blood Pressure Location Lt brachial Lt brachial Position Sitting Sitting Respiration 18 16 Pulse 83 70 Pulse Source Monitor Monitor Temp 97.2 F L Temp Source Temporal Pulse Oximetry (%) 96 99 Oxygen Delivery Method nasal canula room air Oxygen Flow Rate (L/min) 2 Intake Visit Reasons: 6 M FU 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 [employer] Testing Required: No Accompanied by: Is patient in pain?: No Allergies cat dander Allergy (Severe, Verified 07/06/24 10:35) Inflammation of lung house dust Allergy (Verified 07/06/24 10:35) Nasal congestion and watery eyes meperidine (From Demerol) Allergy (Verified 07/06/24 10:35) Itching mold Allergy (Verified 07/06/24 10:35) nasal congestion and watery eyes Penicillins (PCN) Allergy (Verified 07/06/24 10:35) Hives tree and shrub pollen Allergy (Verified 07/06/24 10:35) Other Medications ???Medication ???Instructions ???Recorded ???Confirmed ???Type fluticasone propionate 50 2 spray intranasal DAILY 03/20/22 07/06/24 History mcg/actuation nasal spray,suspension loratadine 10 mg capsule 10 mg PO DAILY 03/20/22 07/06/24 History aspirin 81 mg tablet,delayed 81 mg PO DAILY 04/02/22 07/06/24 History release (Adult Low Dose Aspirin) insulin aspart U-100 100 unit/mL 10 unit subcut .SLIDING SCALE 04/02/22 07/06/24 History subcutaneous solution (Novolog U-100 Insulin aspart) furosemide 20 mg tablet 40 mg PO BID 04/09/22 07/06/24 History albuterol sulfate 90 mcg/actuation 2 puff inhalation Q6H PRN 04/20/22 07/06/24 Rx aerosol inhaler shortness of breath or wheezing #8.5 grams albuterol sulfate 2.5 mg/3 mL 2.5 mg continuous nebulization 09/16/22 07/06/24 History (0.083 %) solution for nebulization emollient (Vanicream topical) applic topical 02/28/23 07/06/24 History sodium chloride-aloe vera nasal 1 applic topical HS PRN 02/28/23 07/06/24 History gel ([place] Saline nasal gel) fluticasone fur. 200 mcg-umeclid 1 inh inhalation DAILY 04/11/23 07/06/24 History 62.5 mcg-vilant 25 mcg inhalat.powder (Trelegy Ellipta) insulin glargine 100 unit/mL 32 unit subcut QPM 11/08/23 07/06/24 History subcutaneous cartridge blood sugar diagnostic (Accu-Chek #300 ea 01/02/24 07/06/24 Rx SmartView Test Strips) blood-glucose meter (OneTouch #1 ea 03/19/24 07/06/24 Rx Verio Flex Meter) montelukast 10 mg tablet 10 mg PO QHS #90 tabs 03/19/24 07/06/24 Rx azelastine 137 mcg (0.1 %) nasal 1 spray intranasal BID PRN 04/04/24 07/06/24 Rx spray congestion #30 mL atorvastatin 40 mg tablet (Lipitor) 40 mg PO DAILY #90 tabs 05/02/24 07/06/24 Rx baclofen 10 mg tablet 10 mg PO TID PRN 05/02/24 07/06/24 History duloxetine 20 mg capsule,delayed 40 mg PO DAILY 05/02/24 07/06/24 History release metoprolol succinate 50 mg 50 mg PO DAILY #90 tabs 05/02/24 07/06/24 Rx tablet,extended release 24 hr (Toprol XL) naproxen sodium 220 mg capsule 220 mg PO Q12H PRN 05/02/24 07/06/24 History (Aleve) blood sugar diagnostic (OneTouch #100 ea 05/07/24 07/06/24 Rx Verio test strips) esomeprazole magnesium 40 mg 40 mg PO BID #180 caps 05/07/24 07/06/24 Rx capsule,delayed release insulin syringe-needle U-100 0.3 #100 ea 05/07/24 07/06/24 Rx mL 31 gauge x 5/16 (BD Insulin Syringe Ultra-Fine) lisinopril 5 mg tablet 5 mg PO DAILY #90 tabs 06/04/24 07/06/24 Rx potassium chloride 20 mEq 20 meq PO DAILY #90 TABLETS 06/13/24 07/06/24 Rx tablet,extended release(part/cryst) (Klor-Con M) Have you fallen in the past year?: No PFSH Medical History Wears glasses History of steroid therapy CPAP (continuous positive airway pressure) dependence Walker as ambulation aid Arthritis High cholesterol Easy bruising History of diverticulitis Gastric reflux Former smoker Chronic cough Leg cramps History of edema History of atrial fibrillation History of echocardiogram History of stress test Cardiology follow-up encounter Thoracic outlet syndrome TMJ (dislocation of temporomandibular joint) Kidney failure 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 Normal [facility] Lipid Profileon 07-06-2024 Cholesterol [Mass/Vol] 178 mg/dL Normal 200 [facility] Comment on above: Result Comment: <200 mg/dL Desirable 200-240 mg/dL Borderline >240 mg/dL High Risk Performed By: #### L 500.4050, L500.4100, L100.0100, L501.9985, L501.9520 #### [facility] [address] [facility] [address], [address] Cholesterol in HDL [Mass/Vol] 63 mg/dL Normal [facility] Comment on above: Result Comment: The drugs N-Acetylcysteine and Metamizole may falsely depress this assay. Reference Range HDL <40 mg/dL Low HDL Cholesterol HDL >or= 60 mg/dL High HDL Cholesterol Performed By: #### L 500.4050, L500.4100, L100.0100, L501.9985, L501.9520 #### [facility] [address] [place], [address] Cholesterol in LDL [Mass/Vol] 92 mg/dL Normal 0-130 [facility] Comment on above: Performed By: #### L 500.4050, L500.4100, L100.0100, L501.9985, L501.9520 #### [facility] [address] [place], [address] Cholesterol in VLDL [Mass/Vol] 23 mg/dL Normal 5-40 [facility] Comment on above: Performed By: #### L 500.4050, L500.4100, L100.0100, L501.9985, L501.9520 #### [facility] [address] [place], [address] Triglyceride [Mass/Vol] 114 mg/dL Normal [facility] [facility] Comment on above: Result Comment: The drugs N-Acetylcysteine and Metamizole may falsely depress this assay. Serum Triglycerides Reference Interval Normal <150 mg/dL Borderline high 150 - 199 mg/dL High 200 - 499 mg/dL Very High > or = 500 mg/dL Performed By: #### L 500.4050, L500.4100, L100.0100, L501.9985, L501.9520 #### [facility] [address] [place], [place], [address] Thyroid Stim Hormone (TSH)on 07-06-2024 TSH 1.880 uIU/mL Normal 0.358-3.74 0 [facility] Comment on above: Performed By: #### L 500.4050, L500.4100, L100.0100, L501.9985, L501.9520 #### [facility] [address] [place], [address] CNOVon 06-18-2024 CNOV Office Visit (PULMWS ) ----- TISH BUTLER ([id number]) 1950 F Date Time Provider Department 06/18/24 11:45 AM TARA KHOURY PULKIRSTEN During your visit today, we recorded the following information about you: Pulse Respiration Blood pressure Weight 89/minute 14/minute 126/78 103 kg Height 1.619 m Edda Frances LPN 06/18/2024 11:22 AM Signed Intake information documented in the prior visit with BROWN Bentley today. Tara Khoury MD 06/18/2024 12:13 PM Signed . 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 Current inhaled therapy consists of Trelegy Ellipta with as needed albuterol. Today she states she has been doing well from a respiratory standpoint. She has not had any recent upper respiratory infections nor required hospitalization for her obstructive lung disease. Her main symptom is dyspnea on exertion which has been stable. No current cough, sputum production or wheezing. Her pulmonary function test today show improvement in her airflow obstruction since changing her inhaled therapy to Trelegy Ellipta. DME: [employer] 2 L DATA: SERVICE DATE: 06/18/2024 SERVICE TIME: 11:22 AM Oral Exhaled Nitric Oxide measurement: 9.0 (ppb) PFT: Pulmonary function test show possible restriction and small airways obstruction Flow-volume loop not indicative of tracheal stenosis PAST MEDICAL HISTORY No date: Allergies No date: Atrial fibrillation ([facility]) No date: B12 deficiency No date: Chronic low back pain No date: Chronic respiratory failure with hypoxia ([facility]) No date: CKD (chronic kidney disease) No date: COPD (chronic obstructive pulmonary disease) ([facility]) No date: Cor pulmonale ([facility]) No date: Depression No date: Diabetes mellitus ([facility]) No date: Fibromyalgia No date: GERD (gastroesophageal reflux disease) No date: H/O fibromyositis No date: HTN (hypertension) No date: Mixed hyperlipidemia No date: Morbid obesity ([facility]) No date: SELENA (obstructive sleep apnea) No date: Osteoarthritis of multiple joints No date: Rheumatic fever No date: RLS (restless legs syndrome) No date: Thoracic outlet syndrome No date: Tracheal stenosis following tracheostomy ([facility]) No date: Vitamin D deficiency ALLERGIES Allergen Reactions Demerol [Meperidine] Itching Grass Pollen Shortness of Breath House Dust Unknown Mold Unknown Penicillins Unknown Tree And Shrub Poll* Unknown Vicodin [Hydrocodon* Unknown esomeprazole (NEXIUM) 40 mg capsule Take 40 mg by mouth once daily. montelukast (SINGULAIR) 10 mg tablet Take 1 tablet by mouth daily at bedtime. mdyserbkafw-dklkgvzfm-uir anter (TRELEGY ELLIPTA) 200-62.5-25 mcg inhalation powder Inhale 1 Puff as instructed once daily. azelastine 0.1% nasal spray USE 1 SPRAY(S) IN EACH NOSTRIL TWICE DAILY OXYGEN, HOME THERAPY, 2 L/min by Nasal Cannula route continuous. fluticasone (FLONASE) 50 mcg/actuation nasal spray Use 1 [place] in each nostril once daily. duloxetine HCl (DULOXETINE ORAL) Take 40 mg by mouth once daily. albuterol (PROVENTIL) 2.5 mg /3 mL (0.083 %) nebulizer solution Use 3 mL via nebulizer every 4 hours as needed. baclofen (LIORESAL) 10 mg tablet Take 10 mg by mouth three times daily. lisinopril (ZESTRIL, PRINIVIL) 5 mg tablet Take 5 mg by mouth once daily. loratadine 10 mg cap Take 10 mg by mouth once daily. insulin aspart U-100 (NOVOLOG) 100 unit/mL Inject subcutaneously. insulin glargine (LANTUS) 100 unit/mL injection Inject 34 Units subcutaneously daily at bedtime. ipratropium-albuterol (DUONEB) 0.5 mg-3 mg(2.5 mg base)/3 mL nebu Inhale 3 mL as instructed every 6 hours as needed. potassium chloride ER (K-DUR, KLOR-CON) 20 mEq tablet Take by mouth once daily. atorvastatin (LIPITOR) 40 mg tablet Take by mouth once daily. furosemide (LASIX) 20 mg tablet Take 20 mg by mouth. metoprolol succinate ER (TOPROL XL) 50 mg 24 hr tablet Take 50 mg by mouth once daily. aspirin, enteric coated (ASPIRIN, ENTERIC COATED) 81 mg EC tablet Take 81 mg by mouth once daily. Social History Tobacco Use Smoking status: Former Current packs/day: 0.00 Average packs/day: 1 pack/day for 25.0 years (25.0 ttl pk-yrs) Types: Cigarettes Start date: 02/07/1955 Quit date: 02/08/1980 Years since quittin.3 Smokeless tobacco: Never Vaping Use Vaping status: Never Used Substance Use Topics Alcohol use: Not Currently Drug use: Never PMH, (more content not included)... Normal [facility] NITRIC OXIDE, EXHALEDon 09-0 RamiroDaniel RPF T 06/18/2024 11:22 AM RESPIRATORY THERAPY ORAL EXHALED NITRIC OXIDE SERVICE DATE: 06/18/2024 SERVICE TIME: 11:22 AM Oral Exhaled Nitric Oxide measurement: 9.0 (ppb) Normal: Adult <25 ppb, pediatric (<12 years) <20 ppb High Normal / Increased: Adult 25-50 ppb, pediatric (<12 years) 20-35 ppb Moderately raised exhaled Nitric Oxide may indicate underlying inflammation, but note that: Cold and influenza can raise exhaled Nitric Oxide and some patients have higher baseline exhaled Nitric Oxide levels than others. High: Adult >50 ppb, pediatric (<12 years) >35 ppb Indicative of ongoing eosinophilic inflammation. Symptomatic patient likely to respond to steroids. Possible causes (if already on steroids): Poor compliance, recent allergen exposure, steroid dose inadequate, and steroid resistance. Note that not all patients with high exhaled nitric oxide levels display symptoms. Oral Exhaled Nitric Oxide measurement (Previous Encounters) Test Date Oral Exhaled Nitric Oxide (ppb) 06/18/2024 9.0 NAME: BROWN Bentley PATIENT NAME: Tish Butler DATE: June 18, 2024 TIME: 11:22 AM [facility] Cardiology Visit Reporton Cardiology Visit Report [facility] [address] [place], [place] [address] OFFICE VISIT Date of Service: 05/02/24 MR#: [id number] Acct: [id number] Name: TISH BUTLER Rep #: [id number] : 1950 Provider: ELISEO deshpande Age/Sex: 73/F Location: [facility] Status: Signed [facility] History of Present Illness Details: This is a pleasant 73-year-old lady who presents to the office today for a cardiovascular follow-up visit. She has a history of hypertension, hyperlipidemia, previous cor pulmonale and diabetes mellitus who has been noted to be having recent chest discomfort described as a midsternal chest episode. She sometimes describes this as sharp and occasionally dull. It radiates to the back of her arm and recently radiated up to her jaw. She had presented to the emergency room was evaluated and troponins were negative and she was discharged. A previous echocardiogram performed in January 2021 demonstrated an ejection fraction of 57%. Stress test did not demonstrate any evidence of ischemia. She had previously had a event monitor put on which demonstrated 1 episode of atrial fibrillation but she has not been on anticoagulation. Her electrocardiogram demonstrates normal sinus rhythm with a right bundle branch block pattern. She is oxygen dependent. She underwent a cardiac catheterization on 04/23/2022 which demonstrated normal coronary arteries. From a cardiac standpoint, the patient is doing well. She denies any palpitations. She does have occasional chest pain. She states this is right sided, will radiate to her right neck, and back. She states this will last for a few minutes and then dissipate. She states this is very occasional. She does have SOB with exertion-this is nothing new or worsening. She is currently on 2L of Oxygen via NC. She denies Orthopnea, and PND. She does not have bleeding issues; no blood in urine, stool or nosebleeds. She denies any decrease in energy level, myalgias, or claudication. She does not have edema, or sudden weight gain. She does have occasional lightheadedness with quick positional changes. She denies dizziness, syncopal or near syncopal episodes, and headaches. Intake Vital Signs 11/08/23 14:35 01/02/24 10:07 05/02/24 13:40 Height 5 ft 5 in 5 ft 5 in 5 ft 5 in Weight: 226 lb BMI 37.5 BP 109/67 Blood Pressure Location Lt brachial Position Sitting Respiration 18 Pulse 83 Pulse Source Monitor Pulse Oximetry (%) 96 Oxygen Delivery Method nasal canula Oxygen Flow Rate (L/min) 2 Intake Visit Reasons: 6 M FU Accompanied by: Self Is patient in pain?: Yes (Low back) Pain scale (1-10): 4 Allergies cat dander Allergy (Severe, Verified 05/02/24 13:53) Inflammation of lung house dust Allergy (Verified 05/02/24 13:53) Nasal congestion and watery eyes meperidine (From Demerol) Allergy (Verified 05/02/24 13:53) Itching mold Allergy (Verified 05/02/24 13:53) nasal congestion and watery eyes Penicillins (PCN) Allergy (Verified 05/02/24 13:53) Hives tree and shrub pollen Allergy (Verified 05/02/24 13:53) Other Medications ???Medication ???Instructions ???Recorded ???Confirmed ???Type fluticasone propionate 50 2 spray intranasal DAILY 03/20/22 05/02/24 History mcg/actuation nasal spray,suspension lisinopril 5 mg tablet 5 mg PO DAILY 03/20/22 05/02/24 History loratadine 10 mg capsule 10 mg PO DAILY 03/20/22 05/02/24 History aspirin 81 mg tablet,delayed 81 mg PO DAILY 04/02/22 05/02/24 History release (Adult Low Dose Aspirin) insulin aspart U-100 100 unit/mL 10 unit subcut .SLIDING SCALE 04/02/22 05/02/24 History subcutaneous solution (Novolog U-100 Insulin aspart) furosemide 20 mg tablet 40 mg PO BID 04/09/22 05/02/24 History albuterol sulfate 90 mcg/actuation 2 puff inhalation Q6H PRN 04/20/22 05/02/24 Rx aerosol inhaler shortness of breath or wheezing #8.5 grams albuterol sulfate 2.5 mg/3 mL 2.5 mg continuous nebulization 09/16/22 05/02/24 History (0.083 %) solution for nebulization emollient (Vanicream topical) applic topical 02/28/23 05/02/24 History sodium chloride-aloe vera nasal 1 applic topical HS PRN 02/28/23 05/02/24 History gel ([place] Saline nasal gel) fluticasone fur. 200 mcg-umeclid 1 inh inhalation DAILY 04/11/23 05/02/24 History 62.5 mcg-vilant 25 mcg inhalat.powder (Trelegy Ellipta) tramadol 50 mg tablet 50 mg PO TID PRN 04/11/23 05/02/24 History insulin glargine 100 unit/mL 32 unit subcut QPM 11/08/23 05/02/24 History subcutaneous cartridge blood sugar diagnostic (Accu-Chek #300 ea 01/02/24 05/02/24 Rx SmartView Test Strips) potassium chloride 20 mEq 20 meq PO DAILY #90 tabs 01/02/24 05/02/24 Rx tablet,extended release(part/cryst) blood sugar diagnostic (OneTouch #100 ea 01/04/24 05/02/24 Rx Verio test stri (more content not included)... Normal [facility] Miscellaneous Lab Procedureo n 03-19-2024 [facility] [place] [facility] [place] [facility] Comment on above: Order Comment: [id number] URINE [id number] URINE TOX Result Comment: [id number] 6+OXYCODONE-BUND (ng/mL) DRUG RESULT SCREEN CUTOFF ____ Amphetamines,Urine Negative ng/mL 1000 Amphetamine test includes Amphetamine and Methamphetamine. Barbiturates Negative ng/mL 200 Benzodiazepines Negative ng/mL 200 Cannabinoid Negative ng/mL 20 Cocaine (Metab) Negative ng/mL 300 Opiates Negative ng/mL 300 Opiates test includes Codeine, Morphine, Hydromorphone, Hydrocodone. Oxycodone/Oxymorphone,Urine Negative ng/mL 300 Test includes Oxycodone and Oxymorphone. TESTING PERFORMED AT [facility]. ORIGINAL REPORT ON FILE IN LAB CONTAINS ADDITIONAL TEST SITE INFORMATION. Performed By: #### L 500.4050, L500.4100, L100.0100, L501.9985, L501.9520 #### [facility] [address] [place], [address] Miscellaneous Lab Procedure 2on 03-19-2024 [facility] [place] [facility] [place] 2 Normal [facility] Comment on above: Order Comment: [id number] TRAMADOL Result Comment: TEST RESULTS LIMITS Tramadol, Urine Tramadol Positive Klnntw=607 Tramadol Conf, [place], UR >[address] ng/mL Nflxwk=928 Tramadol detected; this finding can be consistent with use of medications that include Ultram, Topalgic, Tradol, Zydol, or generic formulations. Drugs listed are entry level sales representative of common sources of the compound detected and are not intended to include all possible sources. Please Note: Drug test results should be interpreted in the context of clinical information. Patient metabolic variables, specific drug chemistry, and specimen characteristics can affect test outcome. Technical consultation is available if a test result is inconsistent with an expected outcome. Email: [email or web address] TESTING PERFORMED AT [facility]. ORIGINAL REPORT ON FILE IN LAB CONTAINS ADDITIONAL TEST SITE INFORMATION. Performed By: #### L 500.4050, L500.4100, L100.0100, L501.9985, L501.9520 #### [facility] [address] [place], [place], [address] Absolute lymphocyte countOrd ered By: Mariola Magdaleno on 01-05-2024 Lymphocytes Auto (Unsp spec) [#/Vol] 2.10 10*3/uL 0.83-4.51 [facility] Automated lymphocyte count a s percentage of total leukocytesOrdered By: Mariola Magdaleno on 01-05-2024 Lymphocytes/100 WBC Auto (Unsp spec) 24.1 % 19-41 [facility] Basophil percentageOrdered B y: Mariola Magdaleno on 01-05-2024 Basophils/100 WBC (Bld) 0.6 % 0-1 [facility] Bilirubin [Mass/Vol] 0.40 mg/dL 0.20-1.00 [facility] Comment on above: For patients on eltr ombopag therapy, use of Dimension [place] TBIL is not recommended. Chloride [Moles/Vol] 106 mmol/L 98-107 [facility] Cholesterol [Mass/Vol] 155 mg/dL <200 [facility] Comment on above: <200 mg/dL Desirable 200-240 mg/dL Borderline >240 mg/dL High Risk Eosinophils/100 WBC (Bld) 1.1 % 0-5 [facility] Glucose [Mass/Vol] 82 mg/dL 74-106 [facility] Hemoglobin (Bld) [Mass/Vol] 12.5 g/dL 12.0-15.0 [facility] Monocytes/100 WBC (Bld) 8.7 % 0-10 [facility] Neutrophils (Bld) [#/Vol] 5.7 10*3/uL 2.0-7.7 [facility] Neutrophils/100 WBC (Bld) 65.0 % 47-70 [facility] Potassium [Moles/Vol] 3.7 mmol/L 3.5-5.1 [facility] Protein [Mass/Vol] 6.4 g/dL 6.4-8.2 [facility] Sodium [Moles/Vol] 141 mmol/L 136-145 [facility] Triglyceride [Mass/Vol] 61 mg/dL <199 [facility] Comment on above: The drugs N-Acetylcy steine and Metamizole may falsely depress this assay.Serum Triglycerides Reference Interval Normal <150 mg/dL Borderline high 150 - 199 mg/dL High 200 - 499 mg/dL Very High > or = 500 mg/dL WBC (Bld) [#/Vol] 8.7 10*3/uL 4.4-11.0 [facility] Determination of erythrocyte mean corpuscular volume (MCV)Ordered By: Mariola Magdaleno on 01-05-2024 MCV (RBC) [Entitic vol] 92.5 fL 81-99 [facility] Erythrocyte distribution wid th ratioOrdered By: Mariola Magdaleno on 01-05-2024 Erythrocyte distribution width (RBC) [Ratio] 12.9 % 11.6-14.6 [facility] Erythrocyte distribution wid th standard deviationOrdered By: Mariola Magdaleno on 01-05-2024 Erythrocyte distribution width (RBC) [Entitic vol] 43.7 fL 35.1-43.9 [facility] Hematocrit Auto (Bld) [Volum e fraction]Ordered By: Mariola Magdaleno on 01-05-2024 Hematocrit (Bld) [Volume fraction] 39.2 % 37-47 [facility] Immature granulocytes/100 WB C Auto (Bld)Ordered By: Mariola Magdaleno on 01-05-2024 Immature granulocytes/100 WBC (Bld) 0.500 % 0.0-0.9 [facility] Comment on above: IG% - Immature Granu locytes (promyelocytes, myelocytes and metamyelocytes) > 1% indicates that a LEFT SHIFT is Present. Laboratory - Chemistry and C hemistry - challengeOrdered By: Mariola Magdaleno on 01-05-2024 Albumin/Globulin [Mass ratio] 1.1 {ratio} 0.9-2.4 [facility] ALP [Catalytic activity/Vol] 72 U/L 45-117 [facility] ALT [Catalytic activity/Vol] 21 U/L 13-56 [facility] Cholesterol in HDL [Mass/Vol] 62 mg/dL >40 [facility] Comment on above: The drugs N-Acetylcy steine and Metamizole may falsely depress this assay. Reference Range HDL <40 mg/dL Low HDL Cholesterol HDL >or= 60 mg/dL High HDL Cholesterol Cholesterol in LDL [Mass/Vol] 81 mg/dL 0-130 [facility] CO2 [Moles/Vol] 32.0 mmol/L 21.0-32.0 [facility] Globulin (S) [Mass/Vol] 3.0 g/dL 2.2-4.2 [facility] Urea nitrogen/Creatinine [Mass ratio] 20.2 mg/mg 10-20 [facility] - Drug toxicology Ordered By: Mariola Magdaleno on 01-05-2024 Amphetamines Ql (U) Negative <1000 ng/mL [facility] Benzodiazepines Ql (U) Negative < 200 ng/mL [facility] Cannabinoids Screen Ql (U) Negative < 50 ng/mL [facility] Cocaine Ql (U) Negative < 300 ng/mL [facility] Opiates Ql (U) Negative < 300 ng/mL [facility] - Hematology and Cell countsOrdered By: Mariola Magdaleno on 01-05-2024 MCH (RBC) [Entitic mass] 29.5 pg 27.0-32.0 [facility] MCHC (RBC) [Mass/Vol] 31.9 g/dL 32-36 [facility] Nucleated RBC/100 WBC (Bld) [Ratio] 0 % 0-5 [facility] Platelet mean volume (Bld) [Entitic vol] 9.6 fL 6.2-12.0 [facility] Platelets (Bld) [#/Vol] 229 10*3/uL 150-450 [facility] No Panel InformationOrdered By: Mariola Magdaleno on 01-05-2024 Estimated GFR (MDRD) Amer 70 mL/min >60 [facility] Comment on above: GFR Calc Estimated GFR (MDRD) Non-Af Amer 58 mL/min >60 [facility] Comment on above: Non- GFR Calc MDMA (Ecstasy) Screen Negative < 500 ng/mL [facility] Miscellaneous Test See comment [facility] Comment on above: [id number] 6+OXYCODONE-B UND (ng/mL) DRUG RESULT SCREEN CUTOFF____ Amphetamines,Urine Negative ng/mL 1000 Amphetamine test includes Amphetamine and Methamphetamine.Barbiturates Negative ng/mL 200Benzodiazepines Negative ng/mL 200Cannabinoid Negative ng/mL 20Cocaine (Metab) Negative ng/mL 300Opiates Negative ng/mL 300 Opiates test includes Codeine, Morphine, Hydromorphone, Hydrocodone. Oxycodone/Oxymorphone,Urine Negative ng/mL 300 Test includes Oxycodone and Oxymorphone. TESTING PERFORMED AT [facility]. ORIGINAL REPORT ON FILE IN LAB CONTAINS ADDITIONAL TEST SITE INFORMATION. Urine Barbiturates Screen Negative < 200 ng/mL [facility] Urine Drug Screen Comment [facility] Comment on above: CONFIRMATORY TESTING FOR ALL POSITIVE URINE DRUG SCREENRESULTS WILL ONLY BE SENT OUT UPON PHYSICIAN ORDER. VISTA Urine Drug Screen methods provide only preliminaryanalytical test results. A more specific alternate chemicalmethod must be used in order to obtain a confirmedanalytical result. Gas chromatography/mass spectrometery(GC/MS) is the preferred confirmatory method. Clinicalconsideration and professional judgement should be appliedto any drug of abuse test result, particularly whenpreliminary positive results are used. URINE TCA TESTING MUST BE ORDERED SEPARATELY. USE TESTMNEMONIC: [facility] Urine Methadone Screen Negative < 300 ng/mL [facility] Urine Microalbumin/Creatinin e Ratio 70.5 mg/g CRE <30 [facility] VLDL Cholesterol 12 mg/dL 5-40 [facility] RBC Auto (Bld) [#/Vol]Ordere d By: Mariola Magdaleno on 01-05-2024 RBC (Bld) [#/Vol] 4.24 10*6/uL 4.2-5.4 [facility] Serum or plasma calcium amy urement (mass/volume)Ordered By: Mariola Magdaleno on 01-05-2024 Calcium [Mass/Vol] 8.6 mg/dL 8.5-10.1 [facility] Serum or plasma creatinine m easurement (mass/volume)Ordered By: Mariola Magdaleno on 01-05-2024 Creatinine [Mass/Vol] 0.99 mg/dL 0.55-1.02 [facility] Comment on above: The validity of the calculated GFR & GFRAA in patients over 70 years has not been determined. Clinical correlation is essential. Serum or plasma urea nitroge n measurement (mass/volume)Ordered By: Mariola Magdaleno on 01-05-2024 Urea nitrogen [Mass/Vol] 20 mg/dL 7-18 [facility] Thin prep Papanicolaou smear with manual screeningOrdered By: Mariola Magdaleno on 01-05-2024 Thin prep Papanicolaou smear with manual screening 3.4 g/dL 3.2-5.0 [facility] Thin prep Papanicolaou smear with manual screening 14 U/L 15-37 [facility] Thin prep Papanicolaou smear with manual screening 3 5-15 [facility] Thin prep Papanicolaou smear with manual screening 27.2 mg/L NO RANGE EST. [facility] Urine creatinine measurement (mass/volume)Ordered By: Mariola Magdaleno on 01-05-2024 Creatinine (U) [Mass/Vol] 38.60 mg/dL NO RANGE EST. [facility] Urine phencyclidine (PCP) de tectionOrdered By: Mariola Magdaleno on 01-05-2024 Phencyclidine Ql (U) Negative < 25 ng/mL [facility] - Hematology and Cell countson 01-02-2024 HbA1c (Bld) [Mass fraction] 6.3 % 4.2-6.3 [facility] Eosinophils Auto (Bld) [#/Vo l]on 04-01-2023 Eosinophils (Bld) [#/Vol] 0.09 10*3/uL <0.46 k/uL [facility] Absolute lymphocyte countOrd ered By: Surjit Mccrary on 03-24-2023 Lymphocytes Auto (Unsp spec) [#/Vol] 0.84 10*3/uL 0.83-4.51 [facility] Basophil percentageOrdered B y: Surjit Mccrary on 03-24-2023 Basophils/100 WBC (Bld) 0.5 % 0-1 [facility] Chloride [Moles/Vol] 99 mmol/L 98-107 [facility] Eosinophils/100 WBC (Bld) 1.0 % 0-5 [facility] Glucose [Mass/Vol] 148 mg/dL 74-106 [facility] Comment on above: Fasting Glucose resu lt greater than or equal to 126 mg/dL suggests DIABETES MELLITUS per A.D.A. criteria. Neutrophils (Bld) [#/Vol] 7.0 10*3/uL 2.0-7.7 [facility] Neutrophils/100 WBC (Bld) 74.6 % 47-70 [facility] Potassium [Moles/Vol] 3.6 mmol/L 3.5-5.1 [facility] Sodium [Moles/Vol] 133 mmol/L 136-145 [facility] WBC (Bld) [#/Vol] 9.4 10*3/uL 4.4-11.0 [facility] Blood erythrocytes count (nu mber/volume)Ordered By: Surjit Mccrary on 03-24-2023 RBC (Bld) [#/Vol] 3.78 10*6/uL 4.2-5.4 [facility] Blood hemoglobin measurement (mass/volume)Ordered By: Surjit Mccrary on 03-24-2023 Hemoglobin (Bld) [Mass/Vol] 11.3 g/dL 12.0-15.0 [facility] Blood lymphocytes/100 leukoc ytesOrdered By: Surjit Mccrary on 03-24-2023 Lymphocytes/100 WBC (Bld) 9.0 % 19-41 [facility] Blood monocytes/100 leukocyt esOrdered By: Surjit Mccrary on 03-24-2023 Monocytes/100 WBC (Bld) 14.3 % 0-10 [facility] Blood platelet mean volumeOr dered By: Surjit Mccrary on 03-24-2023 Platelet mean volume (Bld) [Entitic vol] 10.3 fL 6.2-12.0 [facility] Determination of erythrocyte mean corpuscular volume (MCV)Ordered By: Surjit Mccrary on 03-24-2023 MCV (RBC) [Entitic vol] 93.4 fL 81-99 [facility] Hematocrit Auto (Bld) [Volum e fraction]Ordered By: Surjit Mccrary on 03-24-2023 Hematocrit (Bld) [Volume fraction] 35.3 % 37-47 [facility] Influenza virus A and B and SARS-CoV-2 (COVID-19) Ag panel - Upper respiratory specimOrdered By: Surjit Mccrary on 03-24-2023 SARS-CoV-2 (COVID-19) RNA TOMAS+probe Ql (Resp) [facility] Laboratory - Chemistry and C hemistry - challengeOrdered By: Surjit Mccrary on 03-24-2023 CO2 [Moles/Vol] 26.0 mmol/L 21.0-32.0 [facility] Natriuretic peptide B (Bld) [Mass/Vol] 91.7 pg/mL 0-100 [facility] Urea nitrogen/Creatinine [Mass ratio] 12.7 mg/mg 10-20 [facility] - Hematology and Cell countsOrdered By: Surjit Mccrary on 03-24-2023 Erythrocyte distribution width (RBC) [Entitic vol] 43.0 fL 35.1-43.9 [facility] Erythrocyte distribution width (RBC) [Ratio] 12.5 % 11.6-14.6 [facility] Immature granulocytes/100 WBC (Bld) 0.600 % 0.0-0.9 [facility] Comment on above: IG% - Immature Granu locytes (promyelocytes, myelocytes and metamyelocytes) > 1% indicates that a LEFT SHIFT is Present. MCH (RBC) [Entitic mass] 29.9 pg 27.0-32.0 [facility] Nucleated RBC/100 WBC (Bld) [Ratio] 0 % 0-5 [facility] MCHC Auto (RBC) [Mass/Vol]Or dered By: Surjit Mccrary on 03-24-2023 MCHC (RBC) [Mass/Vol] 32.0 g/dL 32-36 [facility] [place] No Panel InformationOrdered By: Surjit Mccrary on 03-24-2023 D-Dimer Quantitative (PE/DVT) 1.47 FEU/ug/m 0.27-0.49 [facility] Comment on above: D-Dimer ELEVATED (>0 .49): Additional studies and clinicalassessments are indicated to conclude diagnosis of:Deep Vein Thrombosis (DVT) or Pulmonary Embolism (PE)CRITICAL VALUE VERIFIED. CALLED TO MESERET MOE03/24/23 1620 Selene Jeffers.RESULTS READ BACK BY SAME . Estimated Creatinine Clearance Calc 35.78 ml/min [facility] Estimated GFR (MDRD) Amer 53 mL/min >60 [facility] Comment on above: GFR Calc Estimated GFR (MDRD) Non-Af Amer 44 mL/min >60 [facility] Comment on above: Non- GFR Calc Troponin I High Sensitivity 4 pg/mL 3.0-54.0 [facility] Comment on above: Please Note: New Yesy t Units and Gender Specific Reference Ranges. For more information see Policy Stat Procedure [place] High Sensitivity Troponin (TNIH) and attachments. Platelets bldOrdered By: Sally Mccrary on 03-24-2023 Platelets (Bld) [#/Vol] 168 10*3/uL 150-450 [facility] Serum or plasma calcium amy urement (mass/volume)Ordered By: Surjit Mccrary on 03-24-2023 Calcium [Mass/Vol] 8.4 mg/dL 8.5-10.1 [facility] Serum or plasma creatinine m easurement (mass/volume)Ordered By: Surjit Mccrary on 03-24-2023 Creatinine [Mass/Vol] 1.26 mg/dL 0.55-1.02 [facility] [place] Comment on above: The validity of the calculated GFR & GFRAA in patients over 70 years has not been determined. Clinical correlation is essential. Serum or plasma urea nitroge n measurement (mass/volume)Ordered By: Surjit Mccrary on 03-24-2023 Urea nitrogen [Mass/Vol] 16 mg/dL 7-18 [facility] Thin prep Papanicolaou smear with manual screeningOrdered By: Surjit Mccrary on 03-24-2023 Thin prep Papanicolaou smear with manual screening 8 5-15 [facility] No Panel Informationon 02-28 POC SARS CoV-2 Antigen Negative [facility] Laboratory - Drug toxicology Ordered By: Dr. Marie on 02-01-2023 Amphetamines Ql (U) Negative <1000 ng/mL [facility] Benzodiazepines Ql (U) Negative < 200 ng/mL [facility] Cannabinoids Screen Ql (U) Negative < 50 ng/mL [facility] Cocaine Ql (U) Negative < 300 ng/mL [facility] Opiates Ql (U) Negative < 300 ng/mL [facility] No Panel InformationOrdered By: Dr. Marie on 02-01-2023 MDMA (Ecstasy) Screen Negative < 500 ng/mL [facility] Miscellaneous Test See comment [facility] Comment on above: TEST RESULTS LIMITST ramadol Positive [id number] Tramadol Conf, [place], [place] >[id number] TESTING PERFORMED AT [facility]. ORIGINAL REPORT ON FILE IN LAB CONTAINS ADDITIONAL TEST SITE INFORMATION. Urine Barbiturates Screen Negative < 200 ng/mL [facility] Urine Drug Screen Comment [facility] Comment on above: CONFIRMATORY TESTING FOR ALL POSITIVE URINE DRUG SCREENRESULTS WILL ONLY BE SENT OUT UPON PHYSICIAN ORDER. VISTA Urine Drug Screen methods provide only preliminaryanalytical test results. A more specific alternate chemicalmethod must be used in order to obtain a confirmedanalytical result. Gas chromatography/mass spectrometery(GC/MS) is the preferred confirmatory method. Clinicalconsideration and professional judgement should be appliedto any drug of abuse test result, particularly whenpreliminary positive results are used. URINE TCA TESTING MUST BE ORDERED SEPARATELY. USE TESTMNEMONIC: [facility] Urine Methadone Screen Negative < 300 ng/mL [facility] Urine phencyclidine (PCP) de tectionOrdered By: Dr. Marie on 02-01-2023 Phencyclidine Ql (U) Negative < 25 ng/mL [facility] Absolute lymphocyte countOrd ered By: Dr. Magdaleno on 12-31-2022 Lymphocytes Auto (Unsp spec) [#/Vol] 2.17 10*3/uL 0.83-4.51 [facility] Basophil percentageOrdered B y: Dr. Magdaleno on 12-31-2022 Basophils/100 WBC (Bld) 0.5 % 0-1 [facility] Bilirubin [Mass/Vol] 0.70 mg/dL 0.20-1.00 [facility] Comment on above: For patients on eltr ombopag therapy, use of Dimension [place] TBIL is not recommended. Chloride [Moles/Vol] 103 mmol/L 98-107 [facility] Cholesterol [Mass/Vol] 138 mg/dL <200 [facility] Comment on above: <200 mg/dL Desirable 200-240 mg/dL Borderline >240 mg/dL High Risk Eosinophils/100 WBC (Bld) 0.9 % 0-5 [facility] Glucose [Mass/Vol] 81 mg/dL 74-106 [facility] Neutrophils (Bld) [#/Vol] 6.7 10*3/uL 2.0-7.7 [facility] Neutrophils/100 WBC (Bld) 67.6 % 47-70 [facility] Potassium [Moles/Vol] 3.2 mmol/L 3.5-5.1 [facility] Protein [Mass/Vol] 6.5 g/dL 6.4-8.2 [facility] Sodium [Moles/Vol] 140 mmol/L 136-145 [facility] Triglyceride [Mass/Vol] 104 mg/dL <199 [facility] Comment on above: The drugs N-Acetylcy steine and Metamizole may falsely depress this assay.Serum Triglycerides Reference Interval Normal <150 mg/dL Borderline high 150 - 199 mg/dL High 200 - 499 mg/dL Very High > or = 500 mg/dL WBC (Bld) [#/Vol] 9.8 10*3/uL 4.4-11.0 [facility] Blood erythrocytes count (nu mber/volume)Ordered By: Dr. Magdaleno on 12-31-2022 RBC (Bld) [#/Vol] 4.66 10*6/uL 4.2-5.4 [facility] Blood hemoglobin measurement (mass/volume)Ordered By: Dr. Magdaleno on 12-31-2022 Hemoglobin (Bld) [Mass/Vol] 14.0 g/dL 12.0-15.0 [facility] Blood lymphocytes/100 leukoc ytesOrdered By: Dr. Magdaleno on 12-31-2022 Lymphocytes/100 WBC (Bld) 22.1 % 19-41 [facility] Blood monocytes/100 leukocyt esOrdered By: Dr. Magdaleno on 12-31-2022 Monocytes/100 WBC (Bld) 8.4 % 0-10 [facility] Blood platelet mean volumeOr dered By: Dr. Magdaleno on 12-31-2022 Platelet mean volume (Bld) [Entitic vol] 10.5 fL 6.2-12.0 [facility] Determination of erythrocyte mean corpuscular volume (MCV)Ordered By: Dr. Magdaleno on 12-31-2022 MCV (RBC) [Entitic vol] 92.3 fL 81-99 [facility] Hematocrit Auto (Bld) [Volum e fraction]Ordered By: Dr. Magdaleno on 12-31-2022 Hematocrit (Bld) [Volume fraction] 43.0 % 37-47 [facility] Laboratory - Chemistry and C hemistry - challengeOrdered By: Dr. Magdaleno on 12-31-2022 ALP [Catalytic activity/Vol] 67 U/L 45-117 [facility] ALT [Catalytic activity/Vol] 18 U/L 13-56 [facility] CO2 [Moles/Vol] 32.0 mmol/L 21.0-32.0 [facility] Globulin (S) [Mass/Vol] 3.0 g/dL 2.2-4.2 [facility] Urea nitrogen/Creatinine [Mass ratio] 22.8 mg/mg 10-20 [facility] Laboratory - Hematology and Cell countsOrdered By: Dr. Magdaleno on 12-31-2022 Erythrocyte distribution width (RBC) [Entitic vol] 43.2 fL 35.1-43.9 [facility] Erythrocyte distribution width (RBC) [Ratio] 12.8 % 11.6-14.6 [facility] Immature granulocytes/100 WBC (Bld) 0.500 % 0.0-0.9 [facility] Comment on above: IG% - Immature Granu locytes (promyelocytes, myelocytes and metamyelocytes) > 1% indicates that a LEFT SHIFT is Present. MCH (RBC) [Entitic mass] 30.0 pg 27.0-32.0 [facility] Nucleated RBC/100 WBC (Bld) [Ratio] 0 % 0-5 [facility] MCHC Auto (RBC) [Mass/Vol]Or dered By: Dr. Magdaleno on 12-31-2022 MCHC (RBC) [Mass/Vol] 32.6 g/dL 32-36 [facility] No Panel InformationOrdered By: Dr. Magdaleno on 12-31-2022 Estimated GFR (MDRD) Amer 77 mL/min >60 [facility] Comment on above: GFR Calc Estimated GFR (MDRD) Non-Af Amer 63 mL/min >60 [facility] Comment on above: Non- GFR Calc Urine Microalbumin/Creatinin e Ratio 16.9 mg/g CRE <30 [facility] Platelets bldOrdered By: Dr. Magdaleno on 12-31-2022 Platelets (Bld) [#/Vol] 259 10*3/uL 150-450 [facility] Serum or plasma albumin amy urement (mass/volume)Ordered By: Dr. Magdaleno on 12-31-2022 Albumin [Mass/Vol] 3.5 g/dL 3.2-5.0 [facility] Serum or plasma albumin/glob ulin mass ratioOrdered By: Dr. Magdaleno on 12-31-2022 Albumin/Globulin [Mass ratio] 1.2 {ratio} 0.9-2.4 [facility] Serum or plasma calcium amy urement (mass/volume)Ordered By: Dr. Magdaleno on 12-31-2022 Calcium [Mass/Vol] 8.4 mg/dL 8.5-10.1 [facility] Serum or plasma cholesterol in HDL measurement (mass/volume)Ordered By: Dr. Magdaleno on 12-31-2022 Cholesterol in HDL [Mass/Vol] 57 mg/dL >40 [facility] Comment on above: The drugs N-Acetylcy steine and Metamizole may falsely depress this assay. Reference Range HDL <40 mg/dL Low HDL Cholesterol HDL >or= 60 mg/dL High HDL Cholesterol Serum or plasma cholesterol in VLDL measurement (mass/volume)Ordered By: Dr. Magdaleno on 12-31-2022 Cholesterol in VLDL [Mass/Vol] 21 mg/dL 5-40 [facility] Serum or plasma creatinine m easurement (mass/volume)Ordered By: Dr. Magdaleno on 12-31-2022 Creatinine [Mass/Vol] 0.92 mg/dL 0.55-1.02 [facility] Comment on above: The validity of the calculated GFR & GFRAA in patients over 70 years has not been determined. Clinical correlation is essential. Serum or plasma low density lipoprotein (LDL) cholesterol measurement (mass/volume)Ordered By: Dr. Magdaleno on 12-31-2022 Cholesterol in LDL [Mass/Vol] 60 mg/dL 0-130 [facility] Serum or plasma urea nitroge n measurement (mass/volume)Ordered By: Dr. Magdaleno on 12-31-2022 Urea nitrogen [Mass/Vol] 21 mg/dL 7-18 [facility] Thin prep Papanicolaou smear with manual screeningOrdered By: Dr. Magdaleno on 12-31-2022 Thin prep Papanicolaou smear with manual screening 7 U/L 15-37 [facility] Thin prep Papanicolaou smear with manual screening 5 5-15 [facility] Thin prep Papanicolaou smear with manual screening 13.5 mg/L NO RANGE EST. [facility] Urine creatinine measurement (mass/volume)Ordered By: Dr. Magdaleno on 12-31-2022 Creatinine (U) [Mass/Vol] 80.10 mg/dL NO RANGE EST. [facility] Laboratory - Hematology and Cell countson 12-28-2022 HbA1c (Bld) [Mass fraction] 6.3 % 4.2-6.3 [facility] - Microbiology an d Antimicrobial susceptibilityon 06-17-2022 SARS-CoV-2 (COVID-19) RNA TOMAS+probe Ql (Unsp spec) Not detected Not Detect [facility] Work Phone: Comment on above: Normal Reference Ran ge: Not DetectedMethod:(RT-PCR) real-time reverse transcriptase PCRLuminex SHIRA Instrument*The Food and Drug Administration (FDA) has issued an Emergency Use Authorization (EAU) for the SHIRA SARS-CoV-2 Assay for the rapid detection of the virus that causes COVID-19. This test has been validated, but the FDAs independent review of this validation is pending.*Negative results do not preclude infection and should not be used as the sole basis for treatment or patient management. Optimum specimen types and timing for peak viral levels during infections caused by SARS-CoV-2 have not been determined. Collection of multiple specimens from the same patient may be necessary to detect the virus. The possibility of a false negative result should be considered if the patient has clinical presentation or has had recent exposure. Glucose Glucometer (BldC) [M ass/Vol]on 05-19-2022 Glucose [Mass/Vol] 135 mg/dL 74-106 [facility] Work Phone: Comment on above: MANAGEMENT OF PATIEN T CARE PER NURSING PROTOCOL SPIROMETRY WITH DILATOR IF O BSTRUCTEDon 05-14-2022 BAO52-45% POST (L/S) 1.01 L/S [facility] VCN80-40% PRE (L/S) 0.72 L/S [facility] land [facility] FEV1 PRE (L) 1.36 L [facility] FEV1/FVC POST (%) 0.70 % [facility] nd [facility] FEV1/FVC PRE (%) 0.68 % [facility] d [facility] FEV1_POST (L) 1.46 L [facility] FVC POST (L) 2.10 L [facility] FVC PRE (L) 2.00 L [facility] PEF POST (L/S) 4.28 L/S [facility] PEF PRE (L/S) 4.88 L/S [facility] Glucose Glucometer (BldC) [M ass/Vol]on 04-23-2022 Glucose [Mass/Vol] 173 mg/dL 74-106 [facility] Work Phone: Comment on above: MANAGEMENT OF PATIEN T CARE PER NURSING PROTOCOL Established Visit (Pain Medi cine)on 04-15-2022 Established Visit (Pain Medicine) Diagnoses/Problems History of Intra-articular corticosteroid injection Bilat SIJ AND Rt Trapezius TPI, 0% relief for SIJ. 80% releif from Trapezius TPI. Chronic low back pain (724.2,338.29) (M54.50,G89.29) Cervical neuritis (723.4) (M54.12) Chronic lumbar radiculopathy (724.4) (M54.16) Chronic pain disorder (338.4) (G89.4) Fibromyalgia (729.1) (M79.7) Orders Facet arthropathy, lumbar, Myalgia, Trochanteric bursitis of right hip Renew: Gabapentin 600 MG Oral Tablet; TAKE 2 TABLET 3 times daily Myalgia Renew: Baclofen 10 MG Oral Tablet; TAKE 1 TABLET 3 TIMES DAILY Provider Impressions Patient is a 71year-old female with a past medical history significant for lumbar spondylosis, myalgia, chronic pain, right shoulder pain/AC joint arthritis, sacroiliitis, fibromyalgia, myalgia, lumbar stenosis, lumbar neuritis, and cervical neuritis. She continues on the baclofen 10 mg up to 3 times a day as needed. She also continues on gabapentin 1200 mg 3 times a day. She tolerates these well. No side effects. She takes them as prescribed. She is requesting refills of gabapentin and baclofen be sent to her mail order pharmacy that way she has some time to get herself set up with a new pain management physician that is local to her. She once again apologized and states that she wants us to know that we did not do anything wrong she just needs to find somebody closer to her home. She states that driving here is too much and in the winter gets even worse. I am going to send her refills to her mail order pharmacy of the baclofen and the gabapentin. We did discuss the possibility of future injection options versus obtaining updated imaging but at this time she does not want to have to drive back here. She will call us should she decide to come back. Otherwise she will follow-up as needed. OARRS reviewed Chief Complaint Patient following up from Bilat SIJ injection that she had on 03/12/22. Patient reports 0% relief. Patient states she still has pain in her middle and left lower back and radiating down her leg to her ankle. Patient states she has bilateral back pain just above her lower back as well. Patient rates this pain a 7/10. Patient also complains of right shoulder pain. She reports 80% relief but states now it is starting to tighten up again. Patient rates this pain a 4/10. Patient states she has trouble get comfortable because she moves to comfort her lower back and her upper back starts to hurt. Patient is having a heart cath next Tuesday due to recent chest pain. Adult Risk Screening Living Will. Living Will: Living will on file. Healthcare POA: Health care proxy on file. Declaration of Mental Health Treatment: No mental health treatment on file. Reference Documentation See scanned note Review of Systems. History of Present Illness On a scale of 0 to 10, the patient rates the pain at 7. Pain Location: Low Back Pain. Pain Quality: Aching. Pain Radiation: Radiates down left leg to ankle. Sensory/ Motor: None. Timing/Duration: Constant and > 12 weeks duration. Patient is a 71-year-old female with a past medical history significant for tremors, lumbar spondylosis, chronic pain, myalgia, lumbar stenosis, lumbar neuritis, cervical neuritis, cervical stenosis, myalgia, fibromyalgia and sacroiliitis. She also has a past medical history significant for COPD. She is on continuous oxygen. Patient states they live in [place]. It is becoming a lot for her to drive all the way here. She states that the car ride is excruciating to her. She then also has to come here for any treatments and things. She wonders about releasing herself from our care and finding somebody local to her. She states that she hates to do this and she does not want to leave but she needs to find somebody closer to her home. Patient underwent recent bilateral sacroiliac joint injection that she states did not help but then she states that her right leg is better. She has some back pain that she rates a -04/2010. It is still going down the left leg. She underwent previous L4?5 and L5-S1 facet RFA. This was done on 12/07/2021 and did not get any significant relief. Patient also underwent previous C7-T1 cervical epidural steroid injection done on 07/31/2021 and she states that she had 90% relief for 2 months. She continues on gabapentin 1200 mg 3 times a day as well as baclofen 10 mg up to 3 times. She tolerates these well. They help her. She is still using them. At this time, her main concern is her left buttock and leg pain but she does not want to have anything else done here because she does not want to have to drive back. She states that it is just too far for her. She is sad to go but she states that the traveling is just too much on her. Review of Systems 13 systems all normal except noted in HP. Active Problems Allergic rhinitis (477.9) (J30.9) Anemia of chronic disorder (285.29) (D63.8) Arthritis of right acromioclavicular joint (716.91) (M19.011) Atrial fibril (more content not included)... Normal [facility] Absolute lymphocyte counton 04-09-2022 Lymphocytes Auto (Unsp spec) [#/Vol] 0.97 10*3/uL 0.83-4.51 [facility] Work Phone: Basophil percentageon 2021 Basophils/100 WBC (Bld) 0.3 % 0-1 [facility] Work Phone: Chloride [Moles/Vol] 101 mmol/L 98-107 [facility] Work Phone: Eosinophils/100 WBC (Bld) 2.5 % 0-5 [facility] Work Phone: Glucose [Mass/Vol] 82 mg/dL 74-106 [facility] Work Phone: Neutrophils (Bld) [#/Vol] 4.7 10*3/uL 2.0-7.7 [facility] Work Phone: Neutrophils/100 WBC (Bld) 72.9 % 47-70 [facility] Work Phone: Potassium [Moles/Vol] 4.1 mmol/L 3.5-5.1 [facility] Work Phone: Sodium [Moles/Vol] 140 mmol/L 136-145 [facility] Work Phone: WBC (Bld) [#/Vol] 6.5 10*3/uL 4.4-11.0 [facility] Work Phone: Blood erythrocytes count (nu mber/volume)on 04-09-2022 RBC (Bld) [#/Vol] 4.23 10*6/uL 4.2-5.4 [facility] Work Phone: Blood hemoglobin measurement (mass/volume)on 04-09-2022 Hemoglobin (Bld) [Mass/Vol] 12.7 g/dL 12.0-15.0 [facility] Work Phone: Blood lymphocytes/100 leukoc yteson 04-09-2022 Lymphocytes/100 WBC (Bld) 14.9 % 19-41 [facility] Work Phone: Blood monocytes/100 leukocyt eson 04-09-2022 Monocytes/100 WBC (Bld) 8.9 % 0-10 [facility] Work Phone: Blood platelet mean volumeon 04-09-2022 Platelet mean volume (Bld) [Entitic vol] 10.0 fL 6.2-12.0 [facility] Work Phone: [phone] Determination of erythrocyte mean corpuscular volume (MCV)on 04-09-2022 MCV (RBC) [Entitic vol] 93.6 fL 81-99 [facility] Work Phone: [phone] Hematocrit Auto (Bld) [Volum e fraction]on 04-09-2022 Hematocrit (Bld) [Volume fraction] 39.6 % 37-47 [facility] Work Phone: [phone] Laboratory - Chemistry and C hemistry - challengeon 04-09-2022 CO2 [Moles/Vol] 33.0 mmol/L 21.0-32.0 [facility] Work Phone: [phone] Urea nitrogen/Creatinine [Mass ratio] 28.1 mg/mg 10-20 [facility] Work Phone: [phone] Laboratory - Hematology and Cell countson 04-09-2022 Erythrocyte distribution width (RBC) [Entitic vol] 45.1 fL 35.1-43.9 [facility] Work Phone: [phone] Erythrocyte distribution width (RBC) [Ratio] 13.2 % 11.6-14.6 [facility] Work Phone: [phone] Immature granulocytes/100 WBC (Bld) 0.500 % 0.0-0.9 [facility] Work Phone: [phone] Comment on above: IG% - Immature Granu locytes (promyelocytes, myelocytes and metamyelocytes) > 1% indicates that a LEFT SHIFT is Present. MCH (RBC) [Entitic mass] 30.0 pg 27.0-32.0 [facility] Work Phone: [phone] Nucleated RBC/100 WBC (Bld) [Ratio] 0 % 0-5 [facility] Work Phone: [phone] MCHC Auto (RBC) [Mass/Vol]on 04-09-2022 MCHC (RBC) [Mass/Vol] 32.1 g/dL 32-36 [facility]: No Panel Informationon 04-09 Estimated GFR (MDRD) Amer 98 mL/min >60 [facility] Work Phone: Comment on above: GFR Calc Estimated GFR (MDRD) Non-Af Amer 81 mL/min >60 [facility] Work Phone: Comment on above: Non- GFR Calc Platelets bldon 04-09-2022 Platelets (Bld) [#/Vol] 195 10*3/uL 150-450 [facility] Work Phone: Serum or plasma calcium amy urement (mass/volume)on 04-09-2022 Calcium [Mass/Vol] 9.3 mg/dL 8.5-10.1 [facility] Work Phone: Serum or plasma creatinine m easurement (mass/volume)on 04-09-2022 Creatinine [Mass/Vol] 0.75 mg/dL 0.55-1.02 [facility] Work Phone: Comment on above: The validity of the calculated GFR & GFRAA in patients over 70 years has not been determined. Clinical correlation is essential. Serum or plasma urea nitroge n measurement (mass/volume)on 04-09-2022 Urea nitrogen [Mass/Vol] 21 mg/dL 7-18 [facility] Work Phone: Thin prep Papanicolaou smear with manual screeningon 04-09-2022 Thin prep Papanicolaou smear with manual screening 6 5-15 [facility] Work Phone: Office Visit (Internal Medic ine)on 03-30-2022 Follow-up visit Diagnoses/Problems Assessed Chronic obstructive lung disease (496) (J44.9) Cor pulmonale (416.9) (I27.81) Diabetes (250.00) (E11.9) Type 2 diabetes mellitus with peripheral neuropathy (250.60,357.2) (E11.42) Vitamin B12 deficiency (266.2) (E53.8) Vitamin D deficiency (268.9) (E55.9) Chest pain (786.50) (R07.9) Class 2 obesity with body mass index (BMI) of 39.0 to 39.9 in adult (278.00,V85.39) (E66.9,Z68.39) Benign essential hypertension (401.1) (I10) Atrial fibrillation (427.31) (I48.91) Orders Vitamin D deficiency Cardiology - General Referral Evaluation and Treatment Evaluate AND Treat Status: Hold For - Scheduling Requested for: 30Mar2022 Ordered;For: Vitamin D deficiency; Ordered By: Gregg Miller Performed: Due: 28Jun2022 Patient Discussion/Summary F/U 4 MO CMP HGA1C VIT D 25 OH B12 LIPID Provider Impressions 1800 RON ADA HGA1C GOAL LESS THAN 7 LOSE WT EXERCISE DAILY Chief Complaint 4 MONTH F/U LABS AND F/U ER VISIT ([facility]) 03/20/2022. DISCUSS TEST STRIPS History of Present IllnessHERE FOR F/U WITH LABS ER F/U, HAD CP, WORK UP IN ER NEGATIVE, FEELS FINE NOW Review of Systems Constitutional: not feeling poorly, no fever, no recent weight gain and no recent weight loss. Eyes: no blurred vision and no diplopia. ENT: no hearing loss, no tinnitus, no earache, no sore throat, no hoarseness and no swollen glands in the neck. Cardiovascular: no chest pain, no tightness or heavy pressure, no shortness of breath, no palpitations and no lower extremity edema. Respiratory: no cough, not coughing up sputum and no wheezing that is consistent with asthma. Gastrointestinal: no change in bowel habits, no diarrhea, no constipation, no bloody stools, no nausea, no vomiting, no abdominal pain, no signs and symptoms of ulcer disease, no bernard colored stools and no intolerance to fatty foods. Genitourinary: no urinary frequency, no dysuria, no burning sensation during urination and no hematuria. Musculoskeletal: no arthralgias, no joint stiffness, no muscle weakness, no back pain and no difficulty walking. Skin: no rashes, no change in skin color and pigmentation, no skin lesions and no skin lumps. Neurological: no headaches, no dizziness, no seizures, no tingling, no numbness, no signs and symptoms of stroke and no limb weakness. Psychiatric: no confusion, no memory lapses or loss, no depression and no sleep disturbances. Endocrine: no goiter, no thyroid disorder, no diabetes mellitus, no excessive thirst, no dry skin, no cold intolerance, no heat intolerance and no increased urinary frequency. Hematologic/Lymphatic: is not slow to heal, does not bleed easily, does not bruise easily, no thrombophlebitis, no anemia and no history of blood transfusion. All other systems have been reviewed and are negative for complaint. Active Problems Problems Allergic rhinitis (477.9) (J30.9) Anemia of chronic disorder (285.29) (D63.8) Arthritis of right acromioclavicular joint (716.91) (M19.011) Atrial fibrillation (427.31) (I48.91) Benign essential hypertension (401.1) (I10) Bilateral sacroiliitis (720.2) (M46.1) Body mass index (BMI) of 40.0 to 44.9 in adult (V85.41) (Z68.41) Breast cancer screening (V76.10) (Z12.39) Cellulitis of labia majora (616.10) (N76.2) Cervical neuritis (723.4) (M54.12) Cervical os stenosis (622.4) (N88.2) Chills (780.64) (R68.83) Chronic asthmatic bronchitis with acute exacerbation (466.0,493.92) (J44.1) Chronic low back pain (724.2,338.29) (M54.50,G89.29) Chronic lumbar radiculopathy (724.4) (M54.16) Chronic obstructive lung disease (496) (J44.9) Chronic pain disorder (338.4) (G89.4) Chronic respiratory failure (518.83) (J96.10) Chronic sacroiliac joint pain (724.6,338.29) (M53.3,G89.29) Cloudy urine (791.9) (R82.90) COPD exacerbation (491.21) (J44.1) Cor pulmonale (416.9) (I27.81) Cough (786.2) (R05.9) Dependence on supplemental oxygen (V46.2) (Z99.81) Depression (311) (F32.A) Depression, major, 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) Diabetes (250.00) (E11.9) Diabetic neuropathy (250.60,357.2) (E11.40) Dizziness (780.4) (R42) 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) Dysphagia (787.20) (R13.10) Edema of lower extremity (782.3) (R60.0) Essential tremor (333.1) (G25.0) Facet arthropathy, lumbar (721.3) (M47.816) Falls (E888.9) (W19.XXXA) Falls, subsequent encounter (V58.89,E888.9) (W19.XXXD) Fibromyalgia (729.1) (M79.7) Fibromyositis (729.1) (M79.7) Fissure in skin (709.8) (R23.4) 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) History of colonic polyps (V12.72) (Z86.010) Hypercholesterolemia (272.0) (E78.00) Hypokalemia (276.8) (E87.6) Hypoxemia (799.02) (R09.02) Left foot pain (729.5) (M79.672) Morbid obesity (278.01) (E66.01) Morbid obesity with BMI of 40.0-44.9, adult (278.01,V85.41) (E66.01,Z68.41) Myalgia (729.1) (M79.10) Neurogenic claudication due to lumbar spinal stenosis (724.03) (M48.062) (more content not included)... Normal [facility] Tobacco Screening.on 022 Fall risk assessment b) One or more fall s in the last year [facility] Work Phone: Tobacco use status CP b) No [facility] Work Phone: Absolute lymphocyte counton 03-20-2022 Lymphocytes Auto (Unsp spec) [#/Vol] 1.73 10*3/uL 0.83-4.51 [facility] Work Phone: Basophil percentageon 2021 Basophils/100 WBC (Bld) 0.4 % 0-1 [facility] Work Phone: Bilirubin [Mass/Vol] 0.40 mg/dL 0.20-1.00 [facility] Work Phone: Comment on above: For patients on eltr ombopag therapy, use of Dimension [place] TBIL is not recommended. Chloride [Moles/Vol] 103 mmol/L 98-107 [facility] Work Phone: Eosinophils/100 WBC (Bld) 0.7 % 0-5 [facility] Work Phone: Glucose [Mass/Vol] 122 mg/dL 74-106 [facility] Work Phone: Comment on above: Fasting Glucose resu lt from 100 to 125 mg/dL suggests IMPAIRED HOMEOSTASIS per A.D.A. criteria. Neutrophils (Bld) [#/Vol] 8.0 10*3/uL 2.0-7.7 [facility] Work Phone: Neutrophils/100 WBC (Bld) 73.5 % 47-70 [facility] Work Phone: Potassium [Moles/Vol] 4.0 mmol/L 3.5-5.1 [facility] Work Phone: Protein [Mass/Vol] 6.9 g/dL 6.4-8.2 [facility] Work Phone: Sodium [Moles/Vol] 138 mmol/L 136-145 [facility] Work Phone: WBC (Bld) [#/Vol] 10.9 10*3/uL 4.4-11.0 [facility] Work Phone: Blood erythrocytes count (nu mber/volume)on 03-20-2022 RBC (Bld) [#/Vol] 4.51 10*6/uL 4.2-5.4 [facility] Work Phone: Blood hemoglobin measurement (mass/volume)on 03-20-2022 Hemoglobin (Bld) [Mass/Vol] 13.5 g/dL 12.0-15.0 [facility] Work Phone: Blood lymphocytes/100 leukoc yteson 03-20-2022 Lymphocytes/100 WBC (Bld) 15.8 % 19-41 [facility] Work Phone: [phone] Blood monocytes/100 leukocyt eson 03-20-2022 Monocytes/100 WBC (Bld) 9.1 % 0-10 [facility] Work Phone: [phone] Blood platelet mean volumeon 03-20-2022 Platelet mean volume (Bld) [Entitic vol] 9.9 fL 6.2-12.0 [facility] Work Phone: [phone] Determination of erythrocyte mean corpuscular volume (MCV)on 03-20-2022 MCV (RBC) [Entitic vol] 90.9 fL 81-99 [facility] Work Phone: Direct bilirubinon Bilirubin.direct [Mass/Vol] 0.16 mg/dL 0.00-0.30 [facility] Work Phone: [phone] Hematocrit Auto (Bld) [Volum e fraction]on 03-20-2022 Hematocrit (Bld) [Volume fraction] 41.0 % 37-47 [facility] Work Phone: Laboratory - Chemistry and C hemistry - challengeon 03-20-2022 ALP [Catalytic activity/Vol] 86 U/L 45-117 [facility] Work Phone: [phone] ALT [Catalytic activity/Vol] 16 U/L 13-56 [facility] Work Phone: [phone] CO2 [Moles/Vol] 29.0 mmol/L 21.0-32.0 [facility] Work Phone: [phone] Globulin (S) [Mass/Vol] 3.1 g/dL 2.2-4.2 [facility] Work Phone: Lipase [Catalytic activity/Vol] 169 U/L 73-393 [facility] Work Phone: [phone] Urea nitrogen/Creatinine [Mass ratio] 34.3 mg/mg 10-20 [facility] Work Phone: [phone] Laboratory - Hematology and Cell countson 03-20-2022 Erythrocyte distribution width (RBC) [Entitic vol] 41.6 fL 35.1-43.9 [facility] Work Phone: [phone] Erythrocyte distribution width (RBC) [Ratio] 12.7 % 11.6-14.6 [facility] Work Phone: [phone] Immature granulocytes/100 WBC (Bld) 0.500 % 0.0-0.9 [facility] Work Phone: [phone] Comment on above: IG% - Immature Granu locytes (promyelocytes, myelocytes and metamyelocytes) > 1% indicates that a LEFT SHIFT is Present. MCH (RBC) [Entitic mass] 29.9 pg 27.0-32.0 [facility] Work Phone: [phone] Nucleated RBC/100 WBC (Bld) [Ratio] 0 % 0-5 [facility] Work Phone: [phone] MCHC Auto (RBC) [Mass/Vol]on 03-20-2022 MCHC (RBC) [Mass/Vol] 32.9 g/dL 32-36 [facility] Work Phone: [phone] No Panel Informationon 03-20 Troponin I High Sensitivity 3 pg/mL 3.0-54.0 [facility] Work Phone: [phone] Comment on above: Please Note: New Yesy t Units and Gender Specific Reference Ranges. For more information see Policy Stat Procedure [place] High Sensitivity Troponin (TNIH) and attachments. Estimated Creatinine Clearance Calc 46.22 ml/min [facility] Work Phone: [phone] Estimated GFR (MDRD) Amer 71 mL/min >60 [facility] Work Phone: [phone] Comment on above: GFR Calc Estimated GFR (MDRD) Non-Af Amer 59 mL/min >60 [facility] Work Phone: [phone] Comment on above: Non- GFR Calc Platelets bldon 03-20-2022 Platelets (Bld) [#/Vol] 261 10*3/uL 150-450 [facility] Work Phone: Serum or plasma albumin amy urement (mass/volume)on 03-20-2022 Albumin [Mass/Vol] 3.8 g/dL 3.2-5.0 [facility] Work Phone: Serum or plasma calcium amy urement (mass/volume)on 03-20-2022 Calcium [Mass/Vol] 8.9 mg/dL 8.5-10.1 [facility] Work Phone: Serum or plasma creatinine m easurement (mass/volume)on 03-20-2022 Creatinine [Mass/Vol] 0.99 mg/dL 0.55-1.02 [facility] Work Phone: Comment on above: The validity of the calculated GFR & GFRAA in patients over 70 years has not been determined. Clinical correlation is essential. Serum or plasma urea nitroge n measurement (mass/volume)on 03-20-2022 Urea nitrogen [Mass/Vol] 34 mg/dL 7-18 [facility] Work Phone: Thin prep Papanicolaou smear with manual screeningon 03-20-2022 Thin prep Papanicolaou smear with manual screening 6 U/L 15-37 [facility] Work Phone: Thin prep Papanicolaou smear with manual screening 6 5-15 [facility] Work Phone: CBC AND DIFFERENTIALon 03-18 Basophils (Bld) [#/Vol] 0.10 10*3/uL Normal 0.00 - 0.10 [facility] Comment on above: Performed By: #### C OV19 #### [facility] [address] [place] [address] Basophils/100 WBC (Bld) 0.5 % Normal 0.0 - 2.0 [facility] Comment on above: Performed By: #### C OV19 #### [facility] [address] [place] [address] Eosinophils (Bld) [#/Vol] 0.10 10*3/uL Normal 0.00 - 0.40 [facility] Comment on above: Performed By: #### C OV19 #### [facility] [address] [place] [address] Eosinophils/100 WBC (Bld) 0.6 % Normal 0.0 - 6.0 [facility] Comment on above: Performed By: #### C OV19 #### [facility] [address] [place] [address] Erythrocyte distribution width (RBC) [Ratio] 13.2 % Normal 11.5 - 14.5 [facility] Comment on above: Performed By: #### C OV19 #### [facility] [address] [place] [address] Hematocrit (Bld) [Volume fraction] 41.7 % Normal 36.0 - 46.0 [facility] Comment on above: Performed By: #### C OV19 #### [facility] [address] [place] [address] Hemoglobin (Bld) [Mass/Vol] 13.8 g/dL Normal 12.0 - 16.0 [facility] Comment on above: Performed By: #### C OV19 #### [facility] [address] [place] [address] Lymphocytes (Bld) [#/Vol] 1.00 10*3/uL Normal 0.80 - 3.00 [facility] Comment on above: Performed By: #### C OV19 #### [facility] [address] [place] [address] Lymphocytes/100 WBC (Bld) 10.6 % Normal 13.0 - 44.0 [facility] Comment on above: Performed By: #### C OV19 #### [facility] [address] [place] [address] MCHC (RBC) [Mass/Vol] 33.1 g/dL Normal 32.0 - 36.0 [facility] Comment on above: Performed By: #### C OV19 #### [facility] [address] [place] [address] MCV (RBC) [Entitic vol] 89 fL Normal 80 - 100 [facility] Comment on above: Performed By: #### C OV19 #### [facility] [address] [place] [address] Monocytes (Bld) [#/Vol] 0.70 10*3/uL Normal 0.05 - 0.80 [facility] Comment on above: Performed By: #### C OV19 #### [facility] [address] [place] [address] Monocytes/100 WBC (Bld) 7.6 % Normal 2.0 - 10.0 [facility] Comment on above: Performed By: #### C OV19 #### [facility] [address] [place] [address] Neutrophils (Bld) [#/Vol] 7.90 10*3/uL High 1.60 - 5.50 [facility] Comment on above: Result Comment: Perc ent differential counts (%) should be interpreted in the context of the absolute cell counts (cells/L). Performed By: #### C OV19 #### [facility] [address] [place] [address] Neutrophils/100 WBC (Bld) 80.7 % Normal 40.0 - 80.0 [facility] Comment on above: Performed By: #### C OV19 #### [facility] [address] [place] [address] NUCLEATED RBC 0.1 /100 WBC Normal [facility] Comment on above: Performed By: #### C OV19 #### [facility] [address] [place] [address] Platelets (Bld) [#/Vol] 285 10*3/uL Normal 150 - 450 [facility] Comment on above: Performed By: #### C OV19 #### [facility] [address] [place] [address] RBC 4.71 x10E12/L Normal 4.00 - 5.20 [facility] Comment on above: Performed By: #### C OV19 #### [facility] [address] [place] [address] WBC (Bld) [#/Vol] 9.8 10*3/uL Normal 4.4 - 11.3 [facility] Comment on above: Performed By: #### C OV19 #### [facility] [address] [place] [address] COMPREHENSIVE PANELon 2021 Albumin [Mass/Vol] 4.3 g/dL Normal 3.4 - 5.0 [facility] Comment on above: Performed By: #### C MP #### [address] [address] ALP [Catalytic activity/Vol] 75 U/L Normal 33 - 136 [facility] Comment on above: Performed By: #### C MP #### [address] [address] ALT [Catalytic activity/Vol] 9 U/L Normal 7 - 45 [facility] Comment on above: Result Comment: Abiola ents treated with Sulfasalazine may generate falsely decreased results for ALT. Performed By: #### C MP #### [address] [address] Anion gap [Moles/Vol] 11 mmol/L Normal 10 - 20 [facility] Comment on above: Performed By: #### C MP #### [address] [address] AST [Catalytic activity/Vol] 9 U/L Normal 9 - 39 [facility] Comment on above: Performed By: #### C MP #### [address] [address] Bilirubin [Mass/Vol] 0.8 mg/dL Normal 0.0 - 1.2 [facility] Comment on above: Performed By: #### C MP #### [address] [address] Calcium [Mass/Vol] 9.3 mg/dL Normal 8.6 - 10.3 [facility] Comment on above: Performed By: #### C MP #### [address] [address] Chloride [Moles/Vol] 102 mmol/L Normal 98 - 107 [facility] Comment on above: Performed By: #### C MP #### [address] [address] Creatinine [Mass/Vol] 0.90 mg/dL Normal 0.50 - 1.05 [facility] Comment on above: Performed By: #### C MP #### [address] [address] GFR/1.73 sq M.predicted among non-blacks MDRD (S/P/Bld) [Vol rate/Area] 68 mL/min/{1.73_m2} Normal >90 [facility] Comment on above: Result Comment: CALC ULATIONS OF ESTIMATED GFR ARE PERFORMED USING THE 2020 CKD-EPI STUDY REFIT EQUATION WITHOUT THE RACE VARIABLE FOR THE IDMS-TRACEABLE CREATININE METHODS. https://jasn.asnjournals.org/content//ASN.69822 04857 Performed By: #### C MP #### [address] [address] Glucose [Mass/Vol] 109 mg/dL High 74 - 99 [facility] Comment on above: Performed By: #### C MP #### [address] [address] HCO3 (Bld) [Moles/Vol] 31 mmol/L Normal 21 - 32 [facility] Comment on above: Performed By: #### C MP #### [address] [address] Potassium [Moles/Vol] 4.4 mmol/L Normal 3.5 - 5.3 [facility] Comment on above: Performed By: #### C MP #### [address] [address] Protein [Mass/Vol] 7.0 g/dL Normal 6.4 - 8.2 [facility] Comment on above: Performed By: #### C MP #### [address] [address] Sodium [Moles/Vol] 140 mmol/L Normal 136 - 145 [facility] Comment on above: Performed By: #### C MP #### [facility] [address] [place] [address] Urea nitrogen [Mass/Vol] 16 mg/dL Normal 6 - 23 [facility] Comment on above: Performed By: #### C MP #### [facility] [address] [place] [address] Complete Blood Count + Diffe gina 03-18-2022 Basophils/100 WBC (Bld) 0.5 % 0.0 - 2.0 [facility] Work Phone: [phone] Erythrocyte distribution width (RBC) [Ratio] 13.2 % See Below [facility] Work Phone: [phone] Comment on above: Reference Range: 11. 5 - 14.5 Hematocrit (Bld) [Volume fraction] 41.7 % See Below [facility] Work Phone: [phone] Comment on above: Reference Range: 36. 0 - 46.0 Hemoglobin (Bld) [Mass/Vol] 13.8 g/dL See Below [facility] Work Phone: [phone] Comment on above: Reference Range: 12. 0 - 16.0 Lymphocytes/100 WBC (Bld) 10.6 % See Below [facility] Work Phone: [phone] Comment on above: Reference Range: 13. 0 - 44.0 MCHC (RBC) [Mass/Vol] 33.1 g/dL See Below [facility] Work Phone: [phone] Comment on above: Reference Range: 32. 0 - 36.0 MCV (RBC) [Entitic vol] 89 fL 80 - 100 [facility] Work Phone: [phone] Monocytes/100 WBC (Bld) 7.6 % 2.0 - 10.0 [facility] Work Phone: [phone] Neutrophils/100 WBC (Bld) 80.7 % See Below [facility] Work Phone: [phone] Comment on above: Reference Range: 40. 0 - 80.0 Platelets (Bld) [#/Vol] 285 10*3/uL 150 - 450 [facility] Work Phone: [phone] RBC (Bld) [#/Vol] 4.71 {x10E12/L} See Below [facility] Work Phone: [phone] Comment on above: Reference Range: 4.0 0 - 5.20 WBC (Bld) [#/Vol] 9.8 10*3/uL 4.4 - 11.3 [facility] Work Phone: [phone] Complete Blood Count + Differential 0.10 {x10E9/L} See Below [facility] Work Phone: [phone] Comment on above: Reference Range: 0.0 0 - 0.10 Reference Range: 0.0 0 - 0.40 Complete Blood Count + Differential 0.70 {x10E9/L} See Below [facility] Work Phone: [phone] Comment on above: Reference Range: 0.0 5 - 0.80 Complete Blood Count + Differential 1.00 {x10E9/L} See Below [facility] Work Phone: [phone] Comment on above: Reference Range: 0.8 0 - 3.00 Complete Blood Count + Differential 7.90 {x10E9/L} above high threshold See Below [facility] Work Phone: [phone] Comment on above: Reference Range: 1.6 0 - 5.50 Percent differential counts (%) should be interpreted in the context of the absolute cell counts (cells/L). Complete Blood Count + Differential 0.6 % 0.0 - 6.0 [facility] Work Phone: [phone] Complete Blood Count + Differential 0.1 {/100_WBC} [facility] Work Phone: [phone] HEMOGLOBIN A1Con 03-18-2022 Glucose [Mass/Vol] 137 mg/dL Normal [facility] Comment on above: Performed By: #### H BA1E #### [place] [address] [place] [address] HbA1c (Bld) [Mass fraction] 6.4 % Abnormal [facility] Comment on above: Result Comment: Diag nosis of Diabetes-Adults Non-Diabetic: < or = 5.6% Increased risk for developing diabetes: 5.7-6.4% Diagnostic of diabetes: > or = 6.5% . Monitoring of Diabetes Age (y) Therapeutic Goal (%) Adults: >18 <7.0 Pediatrics: 13-18 <7.5 7-12 <8.0 0- 6 7.5-8.5 [place] [employer]. Diabetes Care 33(S1), Oct 2009. Performed By: #### H BA1E #### [address] [address] Hemoglobin A1Con 03-18-2022 Glucose [Mass/Vol] 137 mg/dL [facility] Work Phone: [phone] HbA1c (Bld) [Mass fraction] 6.4 % Abnormal [facility] Work Phone: [phone] Comment on above: Diagnosis of Diabete s-Adults Non-Diabetic: < or = 5.6% Increased risk for developing diabetes: 5.7-6.4% Diagnostic of diabetes: > or = 6.5%. Monitoring of Diabetes Age (y) Therapeutic Goal (%) Adults: >18 <7.0 Pediatrics: 13-18 <7.5 7-12 <8.0 0- 6 7.5-8.5 [place] [employer]. Diabetes Care 33(S1), Oct 2009. Laboratory - Chemistry and C hemistry - challengeon 03-18-2022 Albumin BCP dye [Mass/Vol] 4.3 g/dL 3.4 - 5.0 [facility] Work Phone: [phone] ALP [Catalytic activity/Vol] 75 U/L 33 - 136 [facility] Work Phone: [phone] ALT With P-5'-P [Catalytic activity/Vol] 9 U/L 7 - 45 [facility] Work Phone: [phone] Comment on above: Patients treated wit h Sulfasalazine may generate falsely decreased results for ALT. Anion gap [Moles/Vol] 11 mmol/L 10 - 20 [facility] Work Phone: [phone] AST With P-5'-P [Catalytic activity/Vol] 9 U/L 9 - 39 [facility] Work Phone: [phone] Bilirubin [Mass/Vol] 0.8 mg/dL 0.0 - 1.2 [facility] Work Phone: [phone] Calcium [Mass/Vol] 9.3 mg/dL 8.6 - 10.3 [facility] Work Phone: [phone] Chloride [Moles/Vol] 102 mmol/L 98 - 107 [facility] Work Phone: [phone] CO2 [Moles/Vol] 31 mmol/L 21 - 32 [facility] Work Phone: [phone] Creatinine [Mass/Vol] 0.90 mg/dL See Below [facility] Work Phone: [phone] Comment on above: Reference Range: 0.5 0 - 1.05 Glucose [Mass/Vol] 109 mg/dL above high threshold 74 - 99 [facility] Work Phone: [phone] Potassium [Moles/Vol] 4.4 mmol/L 3.5 - 5.3 [facility] Work Phone: [phone] Protein [Mass/Vol] 7.0 g/dL 6.4 - 8.2 [facility] Work Phone: [phone] Sodium [Moles/Vol] 140 mmol/L 136 - 145 [facility] Work Phone: [phone] Urea nitrogen [Mass/Vol] 16 mg/dL 6 - 23 [facility] Work Phone: [phone] No Panel Informationon 03-18 68 {mL/min/1.73m2} >90 [facility] Work Phone: [phone] Comment on above: CALCULATIONS OF BEBETO MATED GFR ARE PERFORMED USING THE 2020 CKD-EPI STUDY REFIT EQUATION WITHOUT THE RACE VARIABLE FOR THE IDMS-TRACEABLE CREATININE METHODS.https://jasn.asnjournals.org/content//A SN.1215886459 VITAMIN D, 25-HYDROXYon VITAMIN D, 25-HYDROXY 41 ng/mL Normal [facility] Comment on above: Result Comment: . DEFICIENCY: < 20 NG/ML INSUFFICIENCY: 20-29 NG/ML SUFFICIENCY: 30-100 NG/ML THIS ASSAY ACCURATELY QUANTIFIES THE SUM OF VITAMIN D3, 25-HYDROXY AND VIT D2,25-HYDROXY. Performed By: #### C OV19 #### [place] [address] [place] [address] Vitamin D 25-Hydroxyon 03-18 25-hydroxyvitamin D3 [Mass/Vol] 41 ng/mL [facility] Work Phone: [phone] Comment on above: .DEFICIENCY: < 20 NG /MLINSUFFICIENCY: 20-29 NG/MLSUFFICIENCY: 30-100 NG/MLTHIS ASSAY ACCURATELY QUANTIFIES THE SUM OFVITAMIN D3, 25-HYDROXY AND VIT D2,25-HYDROXY. No Panel Informationon 03-12 Please click on the link to view the study images Normal [facility] Work Phone: OPIATE/OPIOID/BENZO EXTENDED PRESCRIPTION COMPLIANCEon 03-10-2022 6-ACETYLMORPHINE <25 Normal Cutoff <25 [facility] Comment on above: Performed By: #### C OV19 #### [facility] [address] [place] [address] 7-AMINOCLONAZEPAM <25 Normal Cutoff <25 [facility] Comment on above: Performed By: #### C OV19 #### [facility] [address] [place] [address] ALPHA-HYDROXYALPRAZOLA M <25 Normal Cutoff <25 [facility] Comment on above: Performed By: #### C OV19 #### [facility] [address] [place] [address] ALPHA-HYDROXYMIDAZOLAM <25 Normal Cutoff <25 [facility] Comment on above: Performed By: #### C OV19 #### [facility] [address] [place] [address] ALPRAZOLAM <25 Normal Cutoff <25 [facility] Comment on above: Performed By: #### C OV19 #### [facility] [address] [place] [address] CHLORDIAZEPOXIDE <25 Normal Cutoff <25 [facility] Comment on above: Performed By: #### C OV19 #### [facility] [address] [place] [address] CLONAZEPAM <25 Normal Cutoff <25 [facility] Comment on above: Performed By: #### C OV19 #### [facility] [address] [place] [id number] CODEINE <50 Normal Cutoff <50 [facility] Comment on above: Performed By: #### C OV19 #### [facility] [address] [place] [address] DIAZEPAM <25 Normal Cutoff <25 [facility] Comment on above: Performed By: #### C OV19 #### [facility] [address] [place] [address] EDDP,U <25 Normal Cutoff <25 [facility] Comment on above: Result Comment: The performance characteristics of the Methadone Confirmation, Urine has been validated by the individual laboratory site where testing is performed. It has not been cleared or approved by the FDA. However the FDA has determined that such clearance or approval is not necessary. Our Laboratory is certified under the Clinical Laboratory Improvement Amendments of 1988 (CLIA) as qualified to perform high complexity clinical laboratory testing. Performed By: #### C OV19 #### [facility] [address] [place] [address] FENTANYL CONFIRM,U <2.5 Normal Cutoff<2.5 [facility] Comment on above: Performed By: #### C OV19 #### [facility] [address] [place] [address] HYDROCODONE <25 Normal Cutoff <25 [facility] Comment on above: Performed By: #### C OV19 #### [facility] [address] [place] [address] HYDROMORPHONE <25 Normal Cutoff <25 [facility] Comment on above: Performed By: #### C OV19 #### [facility] [address] [place] [address] LORAZEPAM <25 Normal Cutoff <25 [facility] Comment on above: Performed By: #### C OV19 #### [facility] [address] [place] [id number] METHADONE,U <25 Normal Cutoff <25 [facility] Comment on above: Performed By: #### C OV19 #### [facility] [address] [place] [address] MIDAZOLAM <25 Normal Cutoff <25 [facility] Comment on above: Performed By: #### C OV19 #### [facility] [address] [place] [id number] MORPHINE <50 Normal Cutoff <50 [facility] Comment on above: Performed By: #### C OV19 #### [facility] [address] [place] [id number] NORDIAZEPAM <25 Normal Cutoff <25 [facility] Comment on above: Performed By: #### C OV19 #### [facility] [address] [place] [id number] NORFENTANYL CONFIRM,U <2.5 Normal Cutoff<2.5 [facility] Comment on above: Result Comment: The performance characteristics of the Fentanyl Confirmation, Urine has been validated by the individual laboratory site where testing is performed. It has not been cleared or approved by the FDA. However the FDA has determined that such clearance or approval is not necessary. Our Laboratory is certified under the Clinical Laboratory Improvement Amendments of 1988 (CLIA) as qualified to perform high complexity clinical laboratory testing. Performed By: #### C OV19 #### [facility] [address] [place] [id number] NORHYDROCODONE <25 Normal Cutoff <25 [facility] Comment on above: Performed By: #### C OV19 #### [facility] [address] [place] [address] NOROXYCODONE 677 ng/mL Abnormal Cutoff <25 [facility] Comment on above: Result Comment: Noro xycodone is a metabolite of oxycodone; consistent with use of a drug containing oxycodone. Performed By: #### C OV19 #### [facility] [address] [place] [address] O-DESMETHYLTRAMADOL,U <50 Normal Cutoff <50 [facility] Comment on above: Result Comment: The performance characteristics of the Tramadol Confirmation, Urine has been validated by the individual laboratory site where testing is performed. It has not been cleared or approved by the FDA. However the FDA has determined that such clearance or approval is not necessary. Our Laboratory is certified under the Clinical Laboratory Improvement Amendments of 1988 (CLIA) as qualified to perform high complexity clinical laboratory testing. Performed By: #### C OV19 #### [facility] [address] [place] [address] OXAZEPAM <25 Normal Cutoff <25 [facility] Comment on above: Performed By: #### C OV19 #### [facility] [address] [place] [address] OXYCODONE 200 ng/mL Abnormal Cutoff <25 [facility] Comment on above: Result Comment: Cons istent with use of drug containing oxycodone. Performed By: #### C OV19 #### [facility] [address] [place] [address] OXYMORPHONE 109 ng/mL Abnormal Cutoff <25 [facility] Comment on above: Result Comment: Cons istent with metabolism of oxycodone. May also reflect independent use of oxymorphone. The performance characteristics of the Opiate Confirmation, Urine has been validated by the individual laboratory site where testing is performed. It has not been cleared or approved by the FDA. However the FDA has determined that such clearance or approval is not necessary. Our Laboratory is certified under the Clinical Laboratory Improvement Amendments of 1988 (CLIA) as qualified to perform high complexity clinical laboratory testing. Performed By: #### C OV19 #### [facility] [address] [place] [address] TEMAZEPAM <25 Normal Cutoff <25 [facility] Comment on above: Result Comment: The performance characteristics of the Benzodiazepine Confirmation, Urine has been validated by the individual laboratory site where testing is performed. It has not been cleared or approved by the FDA. However the FDA has determined that such clearance or approval is not necessary. Our Laboratory is certified under the Clinical Laboratory Improvement Amendments of 1988 (CLIA) as qualified to perform high complexity clinical laboratory testing. Performed By: #### C OV19 #### [facility] [address] [place] [address] TRAMADOL CONFIRM,U <50 Normal Cutoff <50 [facility] Comment on above: Performed By: #### C OV19 #### [facility] [address] [place] [address] ZOLPIDEM METABOLITE[ZCA] ,U <25 Normal Cutoff <25 [facility] Comment on above: Result Comment: The performance characteristics of the Zolpidem Confirmation, Urine has been validated by the individual laboratory site where testing is performed. It has not been cleared or approved by the FDA. However the FDA has determined that such clearance or approval is not necessary. Our Laboratory is certified under the Clinical Laboratory Improvement Amendments of 1988 (CLIA) as qualified to perform high complexity clinical laboratory testing. Performed By: #### C OV19 #### [facility] [address] [place] [address] ZOLPIDEM,URINE <25 Normal Cutoff <25 [facility] Comment on above: Performed By: #### C OV19 #### [facility] [address] [place] [address] OPIATE/OPIOID/BENZO EXTENDED PRESCRIPTION COMPLIANCEon 03-05-2022 AMPHETAMINE SCREEN,U Negative Normal NEGATIVE [facility] Comment on above: Result Comment: CUTO FF LEVEL: 500 NG/ML Cross-reactivity has been reported with high concentrations of the following drugs: buproprion, chloroquine, chlorpromazine, ephedrine, mephentermine, fenfluramine, phentermine, phenylpropanolamine, pseudoephedrine, and propranolol. Performed By: #### C OV19 #### [facility] [address] [place] [id number] BARBITURATES SCREEN,U Negative Normal NEGATIVE [facility] Comment on above: Result Comment: CUTO FF LEVEL: 200 NG/ML Performed By: #### C OV19 #### [facility] [address] [place] [id number] CANNABINOIDS SCREEN,U Negative Normal NEGATIVE [facility] Comment on above: Result Comment: CUTO FF LEVEL: 50 NG/ML Performed By: #### C OV19 #### [facility] [address] [place] [id number] COCAINE METABOLITE SCREEN,U Negative Normal NEGATIVE [facility] Comment on above: Result Comment: CUTO FF LEVEL: 150 NG/ML Performed By: #### C OV19 #### [facility] [address] [place] [address] Creatinine [Mass/Vol] 53.5 mg/dL Normal [facility] Comment on above: Result Comment: A ur ine creatinine result >= 20 mg/dL is considered valid without suspicion of dilution. Samples with results below this range will automatically reflex to specific gravity testing to verify specimen integrity. Performed By: #### C OV19 #### [facility] [address] [place] [address] DRUG SCREEN COMMENT. SEE BELOW Normal [facility] Comment on above: Result Comment: Drug screen results are presumptive and should not be used to assess compliance with prescribed medication. Definitive confirmatory drug testing has been added to this sample for any positive screen result and will be reported separately. . Toxicology screening results are reported qualitatively. The concentration must be greater than or equal to the cutoff to be reported as positive. The concentration at which the screening test can detect an individual drug or metabolite varies. The absence of expected drug(s) and/or drug metabolite(s) may indicate non-compliance, inappropriate timing of specimen collection relative to drug administration, poor drug absorption, diluted/adulterated urine, or limitations of testing. For medical purposes only; not valid for forensic use. . Interpretive questions should be directed to the laboratory medical directors. Performed By: #### C OV19 #### [facility] [address] [place] [address] PCP SCREEN,U Negative Normal NEGATIVE [facility] Comment on above: Result Comment: CUTO FF LEVEL: 25 NG/ML Cross-reactivity has been reported with dextromethorphan. Performed By: #### C OV19 #### [facility] [address] [place] [address] Laboratory - Chemistry and C hemistry - challengeon 03-04-2022 Creatinine (Body fld) [Mass/Vol] 53.5 mg/dL [facility] Work Phone: [phone] Comment on above: A urine creatinine r esult >= 20 mg/dL is considered valid without suspicion of dilution. Samples with results below this range will automatically reflex to specific gravity testing to verify specimen integrity. Laboratory - Drug toxicology on 03-04-2022 1-Hydroxymidazolam Confirm (U) [Mass/Vol] <25 Cutoff <25 [facility] Work Phone: 3-Meqqlqvvdo-1,5-Dimet hyl-3,3-Diphenylpyrrol idine (EDDP) Confirm (U) [Mass/Vol] <25 Cutoff <25 [facility] Work Phone: Comment on above: The performance malika acteristics of the Methadone Confirmation, Urine has been validated by the individual laboratory site where testing is performed. It has not been cleared or approved by the FDA. However the FDA has determined that such clearance or approval is not necessary. Our Laboratory is certified under the Clinical Laboratory Improvement Amendments of 1988 (CLIA) as qualified to perform high complexity clinical laboratory testing. 6-Monoacetylmorphine (6-JULIA) Confirm (U) [Mass/Vol] <25 Cutoff <25 [facility] Work Phone: 7-Aminoclonazepam Confirm (U) [Mass/Vol] <25 Cutoff <25 [facility] Work Phone: Alpha hydroxyalprazolam Confirm (U) [Mass/Vol] <25 Cutoff <25 [facility] Work Phone: [phone] ALPRAZolam Confirm (U) [Mass/Vol] <25 Cutoff <25 [facility] Work Phone: [phone] Amphetamines Screen Ql (U) Negative NEGATIVE [facility] Work Phone: [phone] Comment on above: CUTOFF LEVEL: 500 NG /ML Cross-reactivity has been reported with high concentrations of the following drugs: buproprion, chloroquine, chlorpromazine, ephedrine, mephentermine, fenfluramine, phentermine, phenylpropanolamine, pseudoephedrine, and propranolol. Barbiturates Screen Ql (U) Negative NEGATIVE [facility] Work Phone: [phone] Comment on above: CUTOFF LEVEL: 200 NG /ML Benzoylecgonine Screen Ql (U) Negative NEGATIVE [facility] Work Phone: [phone] Comment on above: CUTOFF LEVEL: 150 NG /ML Cannabinoids Screen Ql (U) Negative NEGATIVE [facility] Work Phone: [phone] Comment on above: CUTOFF LEVEL: 50 NG/ ML chlordiazePOXIDE Confirm (U) [Mass/Vol] <25 Cutoff <25 [facility] Work Phone: [phone] clonazePAM Confirm (U) [Mass/Vol] <25 Cutoff <25 [facility] Work Phone: [phone] Codeine Confirm (U) [Mass/Vol] <50 Cutoff <50 [facility] Work Phone: [phone] diazePAM Confirm (U) [Mass/Vol] <25 Cutoff <25 [facility] Work Phone: [phone] fentaNYL Confirm (U) [Mass/Vol] <2.5 Cutoff<2.5 [facility] Work Phone: [phone] HYDROcodone Confirm (U) [Mass/Vol] <25 Cutoff <25 [facility] Work Phone: [phone] HYDROmorphone Confirm (U) [Mass/Vol] <25 Cutoff <25 [facility] Work Phone: [phone] LORazepam Confirm (U) [Mass/Vol] <25 Cutoff <25 [facility] Work Phone: Methadone Confirm (U) [Mass/Vol] <25 Cutoff <25 [facility] Work Phone: [phone] Midazolam Confirm (U) [Mass/Vol] <25 Cutoff <25 [facility] Work Phone: [phone] Morphine Confirm (U) [Mass/Vol] <50 Cutoff <50 [facility] Work Phone: [phone] Nordiazepam Confirm (U) [Mass/Vol] <25 Cutoff <25 [facility] Work Phone: [phone] Norfentanyl Confirm (U) [Mass/Vol] <2.5 Cutoff<2.5 [facility] Work Phone: [phone] Comment on above: The performance malika acteristics of the Fentanyl Confirmation, Urine has been validated by the individual laboratory site where testing is performed. It has not been cleared or approved by the FDA. However the FDA has determined that such clearance or approval is not necessary. Our Laboratory is certified under the Clinical Laboratory Improvement Amendments of 1988 (CLIA) as qualified to perform high complexity clinical laboratory testing. Norhydrocodone Confirm (U) [Mass/Vol] <25 Cutoff <25 [facility] Work Phone: [phone] Noroxycodone Confirm (U) [Mass/Vol] 677 ng/mL Abnormal Cutoff <25 [facility] Work Phone: [phone] Comment on above: Noroxycodone is a me tabolite of oxycodone; consistent with use of a drug containing oxycodone. Nortramadol (U) [Mass/Vol] <50 Cutoff <50 [facility] Work Phone: [phone] Comment on above: The performance malika acteristics of the Tramadol Confirmation, Urine has been validated by the individual laboratory site where testing is performed. It has not been cleared or approved by the FDA. However the FDA has determined that such clearance or approval is not necessary. Our Laboratory is certified under the Clinical Laboratory Improvement Amendments of 1988 (CLIA) as qualified to perform high complexity clinical laboratory testing. Oxazepam Confirm (U) [Mass/Vol] <25 Cutoff <25 [facility] Work Phone: oxyCODONE Confirm (U) [Mass/Vol] 200 ng/mL Abnormal Cutoff <25 [facility] Work Phone: [phone] Comment on above: Consistent with use of drug containing oxycodone. oxyMORphone Confirm (U) [Mass/Vol] 109 ng/mL Abnormal Cutoff <25 [facility] Work Phone: Comment on above: Consistent with meta bolism of oxycodone. May also reflect independent use of oxymorphone. The performance characteristics of the Opiate Confirmation, Urine has been validated by the individual laboratory site where testing is performed. It has not been cleared or approved by the FDA. However the FDA has determined that such clearance or approval is not necessary. Our Laboratory is certified under the Clinical Laboratory Improvement Amendments of 1988 (CLIA) as qualified to perform high complexity clinical laboratory testing. Phencyclidine Ql (U) Negative NEGATIVE [facility] Work Phone: Comment on above: CUTOFF LEVEL: 25 NG/ ML Cross-reactivity has been reported with dextromethorphan. Temazepam Confirm (U) [Mass/Vol] <25 Cutoff <25 [facility] Work Phone: Comment on above: The performance malika acteristics of the Benzodiazepine Confirmation, Urine has been validated by the individual laboratory site where testing is performed. It has not been cleared or approved by the FDA. However the FDA has determined that such clearance or approval is not necessary. Our Laboratory is certified under the Clinical Laboratory Improvement Amendments of 1988 (CLIA) as qualified to perform high complexity clinical laboratory testing. traMADol Confirm (U) [Mass/Vol] <50 Cutoff <50 [facility] Work Phone: [phone] Zolpidem (U) [Mass/Vol] <25 Cutoff <25 [facility] Work Phone: [phone] No Panel Informationon 03-04 <25 Cutoff <25 [facility] Work Phone: [phone] Comment on above: The performance malika acteristics of the Zolpidem Confirmation, Urine has been validated by the individual laboratory site where testing is performed. It has not been cleared or approved by the FDA. However the FDA has determined that such clearance or approval is not necessary. Our Laboratory is certified under the Clinical Laboratory Improvement Amendments of 1988 (CLIA) as qualified to perform high complexity clinical laboratory testing. SEE BELOW [facility] Work Phone: Comment on above: Drug screen results are presumptive and should not be used to assess compliance with prescribed medication. Definitive confirmatory drug testing has been added to this sample for any positive screen result and will be reported separately. .Toxicology screening results are reported qualitatively. The concentration must be greater than or equal to the cutoff to be reported as positive. The concentration at which the screening test can detect an individual drug or metabolite varies. The absence of expected drug(s) and/or drug metabolite(s) may indicate non-compliance, inappropriate timing of specimen collection relative to drug administration, poor drug absorption, diluted/adulterated urine, or limitations of testing. For medical purposes only; not valid for forensic use. .Interpretive questions should be directed to the laboratory medical directors. Cult, Urineon 02-24-2022 Bacteria identified Cx Nom (U) [facility] Work Phone: IO UA (automated w/o microsc opy)on 02-24-2022 Protein (U) [Mass/Vol] Negative [facility] Work Phone: IO UA (automated w/o microscopy) (++)moderate - 40 [facility] Work Phone: IO UA (automated w/o microscopy) Negative [facility] Work Phone: IO UA (automated w/o microscopy) Normal (0.2-1.0 mg/dl) [facility] Work Phone: IO UA (automated w/o microscopy) 7.0 1 [facility] Work Phone: [phone] IO UA (automated w/o microscopy) Hemolyzed trace [facility] Work Phone: [phone] IO UA (automated w/o microscopy) 1.020 1 [facility] Work Phone: IO UA (automated w/o microscopy) Cloudy [facility] Work Phone: IO UA (automated w/o microscopy) Yellow [facility] Work Phone: Office Visit (Internal Medic ine)on 02-24-2022 Follow-up visit Diagnoses/Problems Assessed UTI (urinary tract infection) (599.0) (N39.0) Chronic obstructive lung disease (496) (J44.9) Chronic respiratory failure (518.83) (J96.10) Cloudy urine (791.9) (R82.90) Orders Cloudy urine IO UA (automated w/o microscopy); Status:Resulted - Requires Verification,Retrospectiv e By Protocol Authorization; Done: 24Feb2022 02:29PM Performed:In Office; Due:[id number]; Last Updated By:Braxton Abebe; 02/24/2022 2:30:33 PM;Ordered; For:Cloudy urine; Ordered By:Gregg Miller; UTI (urinary tract infection) Start: levoFLOXacin 500 MG Oral Tablet; TAKE 1 TABLET DAILY DIRECTED Rx By: Gregg Miller; Dispense: 5 Days ; #:5 Tablet; Refill: 0;For: UTI (urinary tract infection); ALY = N; Verified Transmission to [facility]; Last Updated By: Korin Jackson; 02/24/2022 1:17:56 PM Cult, Urine; Status:In Progress - Specimen/Data Collected; Done: 24Feb2022 Perform:Lab Services - Lab To Draw (Non-Blood Test); Due:[id number];Ordered; For:UTI (urinary tract infection); Ordered By:Gregg Miller; Patient Discussion/Summary F/U BEFORE Chief Complaint 1 WEEK F/U - COUGH HAD RESOLVED UP UNTIL 3 DAYS AGO WHEN COUGH RETURNED. C/O CLOUDY URINE + BLADDER DISCOMFORT FOR THE LAST COUPLE DAYS. History of Present IllnessHERE FOR F/U COUGH IS BETTER BUT HAS RETURNED C/O CLOUDY URINE NO DYSURIA C/O URGENCY AND FREQUENCY Review of Systems Constitutional: not feeling poorly, no fever, no recent weight gain and no recent weight loss. Eyes: no blurred vision and no diplopia. ENT: no hearing loss, no tinnitus, no earache, no sore throat, no hoarseness and no swollen glands in the neck. Cardiovascular: no chest pain, no tightness or heavy pressure, no shortness of breath, no palpitations and no lower extremity edema. Respiratory: cough and shortness of breath during exertion, but not coughing up sputum and no wheezing that is consistent with asthma. Gastrointestinal: no change in bowel habits, no diarrhea, no constipation, no bloody stools, no nausea, no vomiting, no abdominal pain, no signs and symptoms of ulcer disease, no bernard colored stools and no intolerance to fatty foods. Genitourinary: urinary frequency, but no burning sensation during urination and no hematuria. Musculoskeletal: no arthralgias, no joint stiffness, no muscle weakness, no back pain and no difficulty walking. Skin: no rashes, no change in skin color and pigmentation, no skin lesions and no skin lumps. Neurological: no headaches, no dizziness, no seizures, no tingling, no numbness, no signs and symptoms of stroke and no limb weakness. Psychiatric: no confusion, no memory lapses or loss, no depression and no sleep disturbances. Endocrine: no goiter, no thyroid disorder, no diabetes mellitus, no excessive thirst, no dry skin, no cold intolerance, no heat intolerance and no increased urinary frequency. Hematologic/Lymphatic: is not slow to heal, does not bleed easily, does not bruise easily, no thrombophlebitis, no anemia and no history of blood transfusion. All other systems have been reviewed and are negative for complaint. Active Problems Problems Allergic rhinitis (477.9) (J30.9) Anemia of chronic disorder (285.29) (D63.8) Arthritis of right acromioclavicular joint (716.91) (M19.011) Atrial fibrillation (427.31) (I48.91) Benign essential hypertension (401.1) (I10) Bilateral sacroiliitis (720.2) (M46.1) Body mass index (BMI) of 40.0 to 44.9 in adult (V85.41) (Z68.41) Breast cancer screening (V76.10) (Z12.39) Cellulitis of labia majora (616.10) (N76.2) Cervical neuritis (723.4) (M54.12) Cervical os stenosis (622.4) (N88.2) Chills (780.64) (R68.83) Chronic asthmatic bronchitis with acute exacerbation (466.0,493.92) (J44.1) Chronic low back pain (724.2,338.29) (M54.50,G89.29) Chronic lumbar radiculopathy (724.4) (M54.16) Chronic obstructive lung disease (496) (J44.9) Chronic respiratory failure (518.83) (J96.10) Chronic sacroiliac joint pain (724.6,338.29) (M53.3,G89.29) COPD exacerbation (491.21) (J44.1) Cor pulmonale (416.9) (I27.81) Cough (786.2) (R05.9) Dependence on supplemental oxygen (V46.2) (Z99.81) Depression (311) (F32.A) Depression, major, 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) Diabetes (250.00) (E11.9) Diabetic neuropathy (250.60,357.2) (E11.40) Dizziness (780.4) (R42) 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 Normal [facility] Tobacco Screening.on 022 Fall risk assessment b) One or more fall s in the last year [facility] Work Phone: Tobacco use status [facility] b) No [facility] Work Phone: URINE CULTURE,BACTERIALon URINE CULTURE,BACTERIAL PATIENT: TISH BUTLER [place] [facility] [place] [id number] : 48 AGE: SEX: F ORDERED BY: GREGG MILLER SOURCE: URINE COLLECTED: 02/24/22 14:08 ANTIBIOTICS AT JUNO.: RECEIVED : 02/24/22 23:25 SITE: Clean Catch/Voided R E S U L T S URINE CULTURE,BACTERIAL FINAL 02/25/22 20:18 NO SIGNIFICANT GROWTH. Normal [facility] Comment on above: Performed By: #### [facility] #### [facility] [address] [place] [address] Office Visit (Internal Medic ine)on 02-17-2022 Follow-up visit Diagnoses/Problems Assessed Chronic obstructive lung disease (496) (J44.9) RLS (restless legs syndrome) (333.94) (G25.81) Orders RLS (restless legs syndrome) Renew: rOPINIRole HCl - 0.5 MG Oral Tablet; Take 1 tablet twice daily Rx By: Gregg Miller; Dispense: 90 Days ; #:180 Tablet; Refill: 3;For: RLS (restless legs syndrome); ALY = N; Verified Transmission to [facility]; Last Updated By: Korin Jackson; 02/17/2022 9:42:18 AM Patient Discussion/Summary F/U 1 WEEK IN OFFICE Provider Impressions PT. WAS INSTRUCTED TO INCREASE FLUID INTAKE ,TAKE TYLENOL 650 MG PO Q6H/PRN FOR PAIN OR FEVER AND TAKE ROBITUSSIN OTC 2 TSP Q 6H/PRN FOR COUGH. MDM 1) COMPLEXITY: 1 OR MORE CHRONIC CONDITION WITH EXACERBATION, OR PROGRESSION OR SIDE EFFECT OF TREATMENT ADDRESSED 2)DATA: TESTS INTERPRETED AND OR ORDERED, TOOK INDEPENDENT HISTORY OR RECORDS REVIEWED 3)RISK: MODERATE RISK DUE TO NATURE OF MEDICAL CONDITIONS/COMORBIDITY OR MEDICATIONS ORDERED OR SURGICAL OR PROCEDURE REFERRAL, . Chief Complaint An interactive audio and video telecommunication system which permits real time communications between the patient (at the originating site) and provider (at the distant site) was utilized to provide this telehealth service. Verbal consent was requested and obtained from TISH BUTLER on this date, 02/17/2022 09:15 AM , for a telehealth visit. [employer] [phone] 1 WK F/U History of Present IllnessF/U , FEELS BETTER, STILL HAS SOME COUGH, HAS SOME JOE C/O INCREASED RESTLESS LEGS Review of Systems Constitutional: not feeling poorly, no fever, no recent weight gain and no recent weight loss. Eyes: no blurred vision and no diplopia. ENT: no hearing loss, no tinnitus, no earache, no sore throat, no hoarseness and no swollen glands in the neck. Cardiovascular: no chest pain, no tightness or heavy pressure, no shortness of breath, no palpitations and no lower extremity edema. Respiratory: cough and shortness of breath during exertion, but not coughing up sputum and no wheezing that is consistent with asthma. Gastrointestinal: no change in bowel habits, no diarrhea, no constipation, no bloody stools, no nausea, no vomiting, no abdominal pain, no signs and symptoms of ulcer disease, no bernard colored stools and no intolerance to fatty foods. Genitourinary: no urinary frequency, no dysuria, no burning sensation during urination and no hematuria. Musculoskeletal: no arthralgias, no joint stiffness, no muscle weakness, no back pain and no difficulty walking. Skin: no rashes, no change in skin color and pigmentation, no skin lesions and no skin lumps. Neurological: no headaches, no dizziness, no seizures, no tingling, no numbness, no signs and symptoms of stroke and no limb weakness. Psychiatric: no confusion, no memory lapses or loss, no depression and no sleep disturbances. Endocrine: no goiter, no thyroid disorder, no diabetes mellitus, no excessive thirst, no dry skin, no cold intolerance, no heat intolerance and no increased urinary frequency. Hematologic/Lymphatic: is not slow to heal, does not bleed easily, does not bruise easily, no thrombophlebitis, no anemia and no history of blood transfusion. All other systems have been reviewed and are negative for complaint. Active Problems Problems Allergic rhinitis (477.9) (J30.9) Anemia of chronic disorder (285.29) (D63.8) Arthritis of right acromioclavicular joint (716.91) (M19.011) Atrial fibrillation (427.31) (I48.91) Benign essential hypertension (401.1) (I10) Bilateral sacroiliitis (720.2) (M46.1) Body mass index (BMI) of 40.0 to 44.9 in adult (V85.41) (Z68.41) Breast cancer screening (V76.10) (Z12.39) Cellulitis of labia majora (616.10) (N76.2) Cervical neuritis (723.4) (M54.12) Cervical os stenosis (622.4) (N88.2) Chills (780.64) (R68.83) Chronic asthmatic bronchitis with acute exacerbation (466.0,493.92) (J44.1) Chronic low back pain (724.2,338.29) (M54.50,G89.29) Chronic lumbar radiculopathy (724.4) (M54.16) Chronic obstructive lung disease (496) (J44.9) Chronic respiratory failure (518.83) (J96.10) Chronic sacroiliac joint pain (724.6,338.29) (M53.3,G89.29) COPD exacerbation (491.21) (J44.1) Cor pulmonale (416.9) (I27.81) Cough (786.2) (R05.9) Dependence on supplemental oxygen (V46.2) (Z99.81) Depression (311) (F32.A) Depression, major, 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 Normal [facility] Tobacco Screening.on 022 Fall risk assessment b) One or more fall s in the last year [facility] Work Phone: Tobacco use status [facility] b) No [facility] Work Phone: Covid 19 Resultson 2 SARS-CoV-2 (COVID-19) RNA TOMAS+probe Ql (Unsp spec) NEGATIVE COVID-19 Test Coronaviruses are common world-wide and are the cause of many common colds. SARS-COV2 is a new coronavirus that began circulating worldwide in 2019 so we are calling it COVID-19. It has been estimated that four out of five patients with COVID-19 will recover at home without the need for medical attention. Symptoms of COVID-19 may include cough, fever, shortness of breath, loss of taste or smell and other flu-like symptoms including chills, sore muscles, sore throat, and headache. Severe illness is more common in older people and people with other health problems such as high blood pressure, obesity, and immune system problems. If the test is positive, you have COVID-19. You will be contacted by the ordering physicians office and instructed to remain on home isolation, in accordance with CDC guidelines. You may also be contacted by the [facility] to see if any of your close contacts may have been exposed to the virus and need to quarantine. If the test is negative, you likely do not have COVID-19 at this time, but you still may have a different illness that can spread to other people (like Influenza, or the Flu) and could still be at risk for getting COVID-19. We recommend that you stay away from other people to limit the spread of illness until your symptoms are improving and you are fever-free for 24 hours without the use of fever lowering medications such as acetaminophen or ibuprofen. No test is 100% accurate so if you are still concerned you may have COVID-19, talk to your doctor about the need to continue to stay away from others. Medicines Unless your provider told you not to use the following: Acetaminophen (Tylenol and others) is generally safe. Anti-inflammatory medications, such as Ibuprofen (Advil or Motrin) or Naproxen (Aleve) can also be used. Itjc-szw-cxzesuo cough and cold medicines can be used according to the instructions on the package. Some rbvh-ilz-ggfktmg medicines also contain acetaminophen. Make sure you are not taking more than your recommended dose. For those not hospitalized, there is no specific treatment available for this illness. Antibiotics do not treat Coronaviruses. Follow-Up Follow up with your doctor by scheduling a virtual visit or consider follow-up at one of our urgent care fever clinics. If you are having difficulty breathing, or are very weak and having difficulty standing, this is a medical emergency. Call 911 or have someone take you to the nearest emergency room immediately. If possible, wear a facemask. Additional guidance from the CDC for patients who tested POSITIVE for COVID-19 How to isolate: Isolate yourself in a specific room at home and limit your contact with others. Use a separate bathroom from other members of the household, when possible. Leave home only to get essential medical care. Do not go to work, school or public areas. Avoid using public transportation, ride-sharing, or taxis. Restrict contact with pets and other animals. If you must care for your pet or be around animals while you are sick, wash your hands before and after your interaction and wear a facemask. Make sure that shared spaces in the home have good airflow, such as by an air conditioner or an opened window, weather permitting. Personal Hygiene Procedures: Wear a face mask when in the same room as other people or pets. If a face mask interferes with your breathing, others should wear a mask when sharing space with you. Frequent hand-washing: wash your hands with soap and water for at least 20 seconds. If soap and water are not available, use alcohol-based hand ruffling machine operator. Avoid touching your eyes, nose, and mouth with unwashed hands. Household Hygiene Procedures: Avoid sharing personal household items such as dishes, glassware, cups, eating utensils, towels or bedding with other people or pets in your home. After use, these items should be washed with soap and hot water. Disinfect all high-touch surfaces every day with antibacterial cleaning solutions such as Lysol wipes, bleach, cleansers, etc. High-touch surfaces include tabletops, doorknobs, bathroom fixtures, toilets, phones, keyboards, tablets and bedside tables. Immediately clean any surfaces that may have blood, poop or body fluids on them, using antibacterial cleaning solutions such as Lysol wipes, bleach, cleansers, etc. If clothing or bedding come into contact with blood, poop or body fluids, they should be washed immediately. Follow the directions on the laundry detergent and clothing labels but hot water is recommended when possible. Stopping home isolation precautions: If possible, consult your doctor before stopping home isolation precautions. According to the CDC, you can discontinue home isolation precautions when you have met both of these criteria: Your fever and respiratory symptoms have been gone for 24 yaa (more content not included)... Normal [facility] INFLUENZA A/B, COVID 2019 PC R,SYMPTOMATICon 02-11-2022 INFLUENZA A, PCR Not detected Normal Not Detected [facility] Comment on above: Result Comment: Resp iratory virus testing is performed routinely by PCR for Influenza A/B and RSV. If Influenza and RSV PCR are negative, testing for parainfluenza 1,2,3 viruses and adenovirus is routinely performed for oncology inpatients and intensive care unit patients at [facility] and is available on request on other patients by calling Laboratory Client Services at [phone]. Not Detected results do not preclude Influenza A/B or RSV infections since the adequacy of sample collection or low viral burden may impact the clinical sensitivity of this test method. Performed By: #### C [facility] #### [facility] [address] [place] [address] INFLUENZA B, PCR Not detected Normal Not Detected [facility] Comment on above: Result Comment: Resp iratory virus testing is performed routinely by PCR for Influenza A/B and RSV. If Influenza and RSV PCR are negative, testing for parainfluenza 1,2,3 viruses and adenovirus is routinely performed for oncology inpatients and intensive care unit patients at [facility] and is available on request on other patients by calling Laboratory Client Services at [phone] Not Detected results do not preclude Influenza A/B or RSV infections since the adequacy of sample collection or low viral burden may impact the clinical sensitivity of this test method. . The TaqManTM SARS-CoV-2, Flu A, Flu B Multiplex Assay is a multiplex, real-time RT-PCR assay for the detection of RNA from the SARS-CoV-2, Influenza A, and Influenza B viruses. A negative result does not preclude the possibility of SARS-CoV-2, Influenza A, or Influenza B infections, and should not be used as the sole basis for patient management decision as a negative result may be caused by very low levels of infection, collection errors, or testing errors. . This test was developed and its performance characteristics were determined by the Microbiology Laboratory, Department of Pathology, [facility], [place], [place]. It has not been cleared or approved by the US Food and Drug Administration; however, FDA clearance or approval is not currently required for clinical use. This test should not be regarded as investigational or for research purposes. Performed By: #### C OINP #### [facility] [address] [place] [address] SARS-CoV-2 (COVID-19) RNA TOMAS+probe Ql (Unsp spec) Not detected Normal Not Detected [facility] Comment on above: Result Comment: . This assay is designed to detect the N, ORF1ab and/or S genes of SARS-CoV-2 via nucleic acid amplification. A Negative (NOT DETECTED) result does not preclude 2019-nCoV infection since the adequacy of sample collection and/or low viral burden may result in presence of viral nucleic acids below the clinical sensitivity of this test method. Negative (NOT DETECTED) result should not be used as the sole basis for treatment or other patient management decisions. Rather negative results should be combined with clinical observations, patient history, and epidemiological information to make patient management decisions. Fact sheet for providers: https://www.fda.gov/media/434518/download Fact sheet for patients: https://www.fda.gov/media/542924/download This test has received FDA Emergency Use Authorization (EUA) and has been verified by [facility] ([facility]). This test is only authorized for the duration of time that circumstances exist to justify the authorization of the emergency use of in vitro diagnostic tests for the detection of SARS-CoV-2 virus and/or diagnosis of COVID-19 infection under section 564(b)(1) of the Act, 21 U.S.C. 360bbb-3(b)(1), unless the authorization is terminated or revoked sooner. [facility] is certified under CLIA-88 as qualified to perform high complexity testing. Testing is performed in the [facility] laboratories located at [address] [place] [address]. Performed By: #### C OINP #### [address] [place] [address] INFLUENZA A/B, COVID 2019 PC R,SYMPTOMATICon 02-10-2022 Lab Specimen Source Nasal, Nasopharyngeal Normal [facility] Comment on above: Performed By: #### C OINP #### [address] [place] [address] INFLUENZA A/B, COVID 2019 PCR,SYMPTOMATIC Not detected See Below -[facility] Work Phone: Comment on above: Reference Range: Not Detected.This assay is designed to detect the N, ORF1ab and/or S genes of SARS-CoV-2 via nucleic acid amplification. A Negative (NOT DETECTED) result does not preclude 2019-nCoV infection since the adequacy of sample collection and/or low viral burden may result in presence of viral nucleic acids below the clinical sensitivity of this test method. Negative (NOT DETECTED) result should not be used as the sole basis for treatment or other patient management decisions. Rather negative results should be combined with clinical observations, patient history, and epidemiological information to make patient management decisions.Fact sheet for providers: https://www.fda.gov/media/967518/downloadFact sheet for patients: https://www.fda.gov/media/107292/downloadThis test has received FDA Emergency Use Authorization (EUA) and has been verified by [facility] ([facility]). This test is only authorized for the duration of time that circumstances exist to justify the authorization of the emergency use of in vitro diagnostic tests for the detection of SARS-CoV-2 virus and/or diagnosis of COVID-19 infection under section 564(b)(1) of the Act, 21 U.S.C. 360bbb-3(b)(1), unless the authorization is terminated or revoked sooner. [facility] is certified under CLIA-88 as qualified to perform high complexity testing. Testing is performed in the [facility] laboratories located at [address] [place] [address]. Reference Range: Not Detected Respiratory virus testing is performed routinely by PCR for Influenza A/B and RSV. If Influenza and RSV PCR are negative, testing for parainfluenza 1,2,3 viruses and adenovirus is routinely performed for oncology inpatients and intensive care unit patients at [facility] and is available on request on other patients by calling Laboratory Client Services at [phone] Not Detected results do not preclude Influenza A/B or RSV infections since the adequacy of sample collection or low viral burden may impact the clinical sensitivity of this test method..The TaqManTM SARS-CoV-2, Flu A, Flu B Multiplex Assay is a multiplex, real-time RT-PCR assay for the detection of RNA from the SARS-CoV-2, Influenza A, and Influenza B viruses. A negative result does not preclude the possibility of SARS-CoV-2, Influenza A, or Influenza B infections, and should not be used as the sole basis for patient management decision as a negative result may be caused by very low levels of infection, collection errors, or testing errors. .This test was developed and its performance characteristics were determined by the Microbiology Laboratory, Department of Pathology, [facility], [place], [place]. It has not been cleared or approved by the US Food and Drug Administration; however, FDA clearance or approval is not currently required for clinical use. This test should not be regarded as investigational or for research purposes. SOURCE: Nasal, Nasop haryngealReference Range: Not Detected Respiratory virus testing is performed routinely by PCR for Influenza A/B and RSV. If Influenza and RSV PCR are negative, testing for parainfluenza 1,2,3 viruses and adenovirus is routinely performed for oncology inpatients and intensive care unit patients at [facility] and is available on request on other patients by calling Laboratory Client Services at [phone]. Not Detected results do not preclude Influenza A/B or RSV infections since the adequacy of sample collection or low viral burden may impact the clinical sensitivity of this test method. Office Visit (Internal Medic ine)on 02-09-2022 Follow-up visit Diagnoses/Problems Assessed COPD exacerbation (491.21) (J44.1) Orders COPD exacerbation Start: Azithromycin 250 MG Oral Tablet (Zithromax Z-Kong); TAKE 2 TABLETS ON DAY 1 THEN TAKE 1 TABLET A DAY FOR 4 DAYS Rx By: Gregg Miller; Dispense: 0 Days ; #:1 X 6 Tablet Pack; Refill: 0;For: COPD exacerbation; ALY = N; Sent To: [facility] Start: predniSONE 10 MG Oral Tablet; TAKE 1 TABLET 3 TIMES DAILY Rx By: Gregg Miller; Dispense: 5 Days ; #:15 Tablet; Refill: 0;For: COPD exacerbation; ALY = N; Sent To: [facility] Patient Discussion/Summary F/U 1 WEEK COVID FLU AB Provider Impressions PT. WAS INSTRUCTED TO INCREASE FLUID INTAKE ,TAKE TYLENOL 650 MG PO Q6H/PRN FOR PAIN OR FEVER AND TAKE ROBITUSSIN OTC 2 TSP Q 6H/PRN FOR COUGH. SELF Q. MDM 1) COMPLEXITY: 1 OR MORE CHRONIC CONDITION WITH EXACERBATION, OR PROGRESSION OR SIDE EFFECT OF TREATMENT ADDRESSED 2)DATA: TESTS INTERPRETED AND OR ORDERED, TOOK INDEPENDENT HISTORY OR RECORDS REVIEWED 3)RISK: MODERATE RISK DUE TO NATURE OF MEDICAL CONDITIONS/COMORBIDITY OR MEDICATIONS ORDERED OR SURGICAL OR PROCEDURE REFERRAL, . Chief Complaint An interactive audio and video telecommunication system which permits real time communications between the patient (at the originating site) and provider (at the distant site) was utilized to provide this telehealth service. Verbal consent was requested and obtained from TISH BUTLER on this date, 02/09/2022 09:15 AM , for a telehealth visit. PT CO BEING SICK X 1 WK OTC MEDS NOT HELPING COUGHING UP A LOT YELLOW PHLEGM AND HAS MADE HER VERY FATIGUE LOW GRADE FEVER SOB ON EXERTION O2 IS SET AT 3 History of Present IllnessPT C/O COUGH JOE FOR 1 WEEK SEVERITY: MODERATE CHARACTERISTIC: ACUTE EXACERBATION FACTOR: NONE RELIEVING FACTOR: NONE ASSOCIATED SYMPTOMS: HAD FEVER AND CHILLS, NO LOSS OF TASTE OR SMELL, NEEDS MORE O2 PRIOR TX: MUCINEX NEBULIZTERS TESSALON YESSI FULLY VACCINATED FOR COVID Review of Systems ALL OTHER SYSTEMS HAVE BEEN REVIEWED AND ARE NEGATIVE Active Problems Problems Allergic rhinitis (477.9) (J30.9) Anemia of chronic disorder (285.29) (D63.8) Arthritis of right acromioclavicular joint (716.91) (M19.011) Atrial fibrillation (427.31) (I48.91) Benign essential hypertension (401.1) (I10) Bilateral sacroiliitis (720.2) (M46.1) Body mass index (BMI) of 40.0 to 44.9 in adult (V85.41) (Z68.41) Breast cancer screening (V76.10) (Z12.39) Cellulitis of labia majora (616.10) (N76.2) Cervical neuritis (723.4) (M54.12) Cervical os stenosis (622.4) (N88.2) Chills (780.64) (R68.83) Chronic asthmatic bronchitis with acute exacerbation (466.0,493.92) (J44.1) Chronic low back pain (724.2,338.29) (M54.50,G89.29) Chronic lumbar radiculopathy (724.4) (M54.16) Chronic obstructive lung disease (496) (J44.9) Chronic respiratory failure (518.83) (J96.10) Chronic sacroiliac joint pain (724.6,338.29) (M53.3,G89.29) COPD exacerbation (491.21) (J44.1) Cor pulmonale (416.9) (I27.81) Cough (786.2) (R05.9) Dependence on supplemental oxygen (V46.2) (Z99.81) Depression (311) (F32.A) Depression, major, 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) Diabetes (250.00) (E11.9) Diabetic neuropathy (250.60,357.2) (E11.40) Dizziness (780.4) (R42) 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) Dysphagia (787.20) (R13.10) Edema of lower extremity (782.3) (R60.0) Essential tremor (333.1) (G25.0) Facet arthropathy, lumbar (721.3) (M47.816) Falls (E888.9) (W19.XXXA) Falls, subsequent encounter (V58.89,E888.9) (W19.XXXD) Fibromyalgia (729.1) (M79.7) Fibromyositis (729.1) (M79.7) Fissure in skin (709.8) (R23.4) 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) History of colonic polyps (V12.72) (Z86.010) Hypercholesterolemia (272.0) (E78.00) Hypokalemia (276.8) (E87.6) Hypoxemia (799.02) (R09.02) Left foot pain (729.5) (M79.672) Morbid obesity (278.01) (E66.01) Morbid obesity with BMI of 40.0-44.9, adult (278.01,V85.41) (E66.01,Z68.41) Myalgia (729.1) (M79.10) Neurogenic claudication due to lumbar spinal stenosis (724.03) (M48.062) Obstructive sleep apnea syndrome in adult (327.23) (G47.33) Osteoarthritis (715.90) (M19.90) Osteoporosis screening (V82.81) (Z13.820) Paroxysmal atrial fibrillation with RVR (427.31) (I48.0) STABLE Pleural effusion (511.9) (J90) Pre-op exam (V72.84) (Z01.818) Primary hypertriglyceridemia (272.1) (E78.1) Recurrent major depressive disorder, remission status unspecified (296.30) (F33.9) Rib pain on right side (786.50) (R07.81) Right shoulder pain, unspecified chronicity (719.41) (M25.511) RLS (restless legs syndrome) (333.94) (G25.81) Runny nose (784.99) (R09.89) Sacroiliitis (720.2) (M46.1) Screen for colon cancer (V76.51) (Z12.11) SOB (shortness of breath) on exertion (786.05) (R06.02) Statin intolerance (995.27) (Z78.9) Thrush (112.0) (B37.0) Tremor (781.0) (R25.1) Trochanteric bursitis of rig (more content not included)... Normal [facility] Tobacco Screening.on 022 Fall risk assessment a) No falls within the last year [facility] Work Phone: Tobacco use status [facility] b) No [facility] Work Phone: Established Visit (Pain Medi cine)on 01-28-2022 Established Visit (Pain Medicine) Diagnoses/Problems Chronic low back pain (724.2,338.29) (M54.50,G89.29) Fibromyalgia (729.1) (M79.7) Chronic sacroiliac joint pain (724.6,338.29) (M53.3,G89.29) Sacroiliitis (720.2) (M46.1) Myalgia (729.1) (M79.10) Provider Impressions Patient is a 71year-old female with a past medical history significant for lumbar spondylosis, myalgia, chronic pain, right shoulder pain/AC joint arthritis, sacroiliitis, fibromyalgia, myalgia, lumbar stenosis, lumbar neuritis, and cervical neuritis. She continues on the baclofen 10 mg up to 3 times a day as needed. She also continues on gabapentin 1200 mg 3 times a day. She tolerates these well. No side effects. She takes them as prescribed. She does not require any refills. She will call when she does. She underwent previous facet RFA and unfortunate, did not get the relief she was looking for. She still continues to have bilateral buttock pain that upon physical examination appears to be related to her bilateral sacroiliac joints. I recommended to patient a bilateral sacroiliac joint checking for both diagnostic and therapeutic purposes. Procedure was discussed. Risks and benefits were discussed. Patient is agreeable to proceeding with this. She is also having some pain along the right scapular border and we discussed trigger point injections to be done at the same time. Procedure for this was discussed. Risks and benefits were discussed. We are going to pursue the above-noted injections and follow-up 2 weeks after. She will call the clinic sooner if necessary. Chief Complaint FUV Amb to room 3 with a rollator walker reports having pain in her rt shoulder throbbing, bilat lower back sharp burning and Lt foot/ankle sharp rates 7/10. She is sparingly taking the percocet for pain but is in so much pain it is hard to stand and walk. She would like a RF on GPN send to [facility]. MMA AND ORT done score =5 Adult Risk Screening Living Will. Living Will: Living will on file. Healthcare POA: Health care proxy on file. Domestic Violence Screen: Does not feel threatened or abused physically, emotionally or sexually. Do you feel UNSAFE? The patient feels safe in the home. Depression/Suicide Screening: She does not have a risk of suicide. She has not had thoughts of harming others. Reference Documentation See scanned note Review of systems . History of Present Illness On a scale of 0 to 10, the patient rates the pain at 7. Pain Location: Low Back Pain and rt shoulder, lt foot /ankle. Pain Quality: Burning and Sharp. Pain Radiation: into bilat hips. Timing/Duration: Constant and > 12 weeks duration. Exacerbating Factors: motion, standing, stairs, walking and weightbearing. Alleviating Factors: None. Patient Education:1 Inj. education completed written and verbally.1 . Patient is a 71-year-old female with a past medical history significant for tremors, lumbar spondylosis, chronic pain, myalgia, lumbar stenosis, lumbar neuritis, cervical neuritis, cervical stenosis, myalgia, fibromyalgia and sacroiliitis. She also has a past medical history significant for COPD. She is on continuous oxygen. At this time, unfortunate, she is still noticing the same amount of pain that she had last time. Patient underwent previous L4?5 and L5-S1 facet RFA. This was done on 12/07/2021 and she states at this time she has not had any relief. She mainly has bilateral buttock pain left side greater than right side. She rates it a 7/10. She states that it is in the lower back and buttock. She has a hard time discerning which area of pain bothers her the most. Patient also underwent previous C7-T1 cervical epidural steroid injection done on 07/31/2021 and she states that she had 90% relief for 2 months. At this time, her neck and arm symptoms are still controlled. She is noticing some right-sided shoulder blade pain along the scapular border. She continues on gabapentin 1200 mg 3 times a day as well as baclofen 10 mg up to 3 times. She tolerates these well. They help her. She is still using them. She does not require any refills. She will call when she does. She wonders what else can be done for her bilateral buttock pain and her right scapular border pain. 1 Amended By: Shayna Malloy; Jan 28 2022 1:29 PM ESTReview of Systems 13 systems all normal except noted in HP. Active Problems Allergic rhinitis (477.9) (J30.9) Anemia of chronic disorder (285.29) (D63.8) Arthritis of right acromioclavicular joint (716.91) (M19.011) Atrial fibrillation (427.31) (I48.91) Benign essential hypertension (401.1) (I10) Bilateral sacroiliitis (720.2) (M46.1) Body mass index (BMI) of 40.0 to 44.9 in adult (V85.41) (Z68.41) Breast cancer screening (V76.10) (Z12.39) Cellulitis of labia majora (616.10) (N76.2) Cervical neuritis (723.4) (M54.12) Cervical os stenosis (622.4) (N88.2) Chills (780.64) (R68.83) Chronic asthmatic bronchitis with acute exacerbation (466.0,493.92) (J44.1) Chronic low back pain (724.2,338.29) (M54.50 (more content not included)... Normal [facility] Established Visit (Pain Medi cine)on 12-30-2021 Established Visit (Pain Medicine) Diagnoses/Problems Facet arthropathy, lumbar (721.3) (M47.816) Fibromyalgia (729.1) (M79.7) Neurogenic claudication due to lumbar spinal stenosis (724.03) (M48.062) Chronic low back pain (724.2,338.29) (M54.50,G89.29) Cervical neuritis (723.4) (M54.12) Orders Facet arthropathy, lumbar, Fibromyalgia, Neurogenic claudication due to lumbar spinal stenosis Start: oxyCODONE-Acetaminophen 5-325 MG Oral Tablet (Percocet); TAKE 1 TABLET EVERY 12 HOURS NEEDED FOR PAIN Formulary Override Reason: No Formulary Equivalent Exists Provider Impressions Patient is a 71year-old female with a past medical history significant for lumbar spondylosis, myalgia, chronic pain, right shoulder pain/AC joint arthritis, sacroiliitis, fibromyalgia, myalgia, lumbar stenosis, lumbar neuritis, and cervical neuritis. She continues on the baclofen 10 mg up to 3 times a day as needed. She also continues on gabapentin 1200 mg 3 times a day. She tolerates these well. No side effects. She takes them as prescribed. She does not require any refills. She will call when she does. Unfortunately, they only minimally help this pain. She states that she is just miserable. She underwent recent bilateral L4-5 and L5-S1 facet RFA done on 12/07/2021 that she states has not given her any relief at this time. She states in fact, she feels worse. She states that she cannot stand to take a shower. She cannot do anything. She states that she is just miserable. We had a long discussion with the RFA process. She voiced understanding. I would recommend her to give it some more time. She voiced understanding. Questions and concerns were all answered and discussed. I did discuss with patient I can give her a small prescription for pain medicine to use very sparingly. She is no longer using the medical marijuana. She states that she got sick and she never started using it again. She will not use it while she is using this pain medicine. She is aware that I will not refill this prescription. It is a one-time thing. She should use it sparingly. She is going to follow-up in 1 month. She will call the clinic sooner if necessary. Since it is a one-time thing I do not plan to do a UDS. OARRS was reviewed. Narcan was offered and declined. It should be noted that patient is treated on a nonnarcotic basis due to her medical marijuana use but since she is not using the medical marijuana I was willing to give her this one-time prescription. Chief Complaint Patient following up from Bilat L5-S1 RFA that she had on 12/07/21. Patient reports she's had 0% relief. Patient states she's has pain in her lower back and it's starting to radiate down her left upper leg. Patient rates her pain a 9/10. She feels like nothing is helping. She walked in today using a rollator walker. Adult Risk Screening Living Will. Living Will: Living will on file. Healthcare POA: Health care proxy on file. Declaration of Mental Health Treatment: No mental health treatment on file. Reference Documentation See scanned note . History of Present Illness On a scale of 0 to 10, the patient rates the pain at 9. Pain Location: Low Back Pain. Pain Quality: Burning and Sharp. Pain Radiation: Radiates down left upper leg. Sensory/ Motor: Pins and [place] and Once in a while. Timing/Duration: Constant and > 12 weeks duration. Patient is a 71-year-old female with a past medical history significant for tremors, lumbar spondylosis, chronic pain, myalgia, lumbar stenosis, lumbar neuritis, cervical neuritis, cervical stenosis, myalgia, fibromyalgia. and sacroiliitis. She also has a past medical history significant for COPD. She is on continuous oxygen. Patient underwent recent 4?5 and L5-S1 facet RFA. This was done on 12/07/2021 and she states at this time she has not had any relief. She states 0%. In fact, she feels worse. Prior to that she underwent L5-S1 epidural steroid injection done on 11/20/2021 that she states gave her 100% relief for 4 days and then her pain returned but upon discussing her pain her leg symptoms is still better. Her leg symptoms are still better. It is back pain. She states that she is just miserable. She states that she cannot stand to take a shower. She cannot do anything. Patient also underwent previous C7-T1 cervical epidural steroid injection done on 07/31/2021 and she states that she had 90% relief for 2 months. At this time, her neck and arm symptoms are still controlled She continues on gabapentin 1200 mg 3 times a day as well as baclofen 10 mg up to 3 times. She tolerates these well. They help her. She recently got sick. She stopped using her medical marijuana at that time. She states that at this time she is still not using it. Review of Systems 13 systems all normal except noted in HP. Active Problems Allergic rhinitis (477.9) (J30.9) Anemia of chronic disorder (285.29) (D63.8) Arthritis of right acromioclavicular joint (716.91) (M19.011) Atrial fibrillation (427.31) (I48.91) Benign essential (more content not included)... Normal [facility] - Chemistry and C hemistry - challengeon 12-07-2021 Glucose [Mass/Vol] 82 mg/dL 74 - 99 [facility] Work Phone: [phone] Panel Informationon 12-07 Please click on the link to view the study images Normal -[facility] Work Phone: [phone] Established Visit (Pain Medi cine)on 12-02-2021 Established Visit (Pain Medicine) Diagnoses/Problems Chronic low back pain (724.2,338.29) (M54.50,G89.29) Facet arthropathy, lumbar (721.3) (M47.816) Fibromyalgia (729.1) (M79.7) Myalgia (729.1) (M79.10) Neurogenic claudication due to lumbar spinal stenosis (724.03) (M48.062) Cellulitis of labia majora (616.10) (N76.2) Provider Impressions Patient is a 71year-old female with a past medical history significant for lumbar spondylosis, myalgia, chronic pain, right shoulder pain/AC joint arthritis, sacroiliitis, fibromyalgia, myalgia, lumbar stenosis, lumbar neuritis, and cervical neuritis. She continues on the baclofen 10 mg up to 3 times a day as needed. She also continues on gabapentin 1200 mg 3 times a day. She tolerates these well. No side effects. She takes them as prescribed. She does not require any refills. She will call when she does. Patient underwent recent L5-S1 epidural steroid injection done on 11/20/2021 that gave her 100% relief for 4 days and then unfortunate, her back pain returned after lifting her walker. Her leg symptoms still are better. Patient underwent previous lumbar facet RFA done August 2020 and she did well until recently when the back pain has returned. It is affecting her quality of life and activities of daily. Is affecting her ability to do things throughout the day. Upon physical examination a lot of her pain appears facet mediated. I recommended to patient repeating the RFA. We discussed pursuing bilateral L4-5 and L5-S1 facet RFA. Procedure was discussed. Risk and benefits were discussed. Patient is agreeable. She will follow up 3 to 4 weeks after the RFA. Call clinic sooner if necessary. Chief Complaint Patient following up from an injection that she had on 11/20/21. She had a L5-S1 JENNIFER. Patient states she got 100% relief for 4 days. She states that she went to lift her walker up a step and felt a sharp pain in her back and it has hurt ever since. Patient rates her pain a 9/10. Patient also complains of left foot pain. She recently had a x ray. Alcohol screen completed, negative. Adult Risk Screening Living Will. Living Will: Living will on file. Healthcare POA: Health care proxy on file. Declaration of Mental Health Treatment: No mental health treatment on file. Domestic Violence Screen: Does not feel threatened or abused physically, emotionally or sexually. Do you feel UNSAFE? The patient feels safe in the home. Single alcohol screening question: In the past year the patient has had 5 or more drinks (men) or 4 or more drinks (women)? 0 time(s). Reference Documentation See scanned note Review of Systems. History of Present Illness On a scale of 0 to 10, the patient rates the pain at 9. Pain Location: Low Back Pain. Pain Quality: Sharp. Pain Radiation: None. Sensory/ Motor: None. Timing/Duration: Constant. Patient Education:1 Inj. education completed written and verbally.1 . Patient is a 71-year-old female with a past medical history significant for tremors, lumbar spondylosis, chronic pain, myalgia, lumbar stenosis, lumbar neuritis, cervical neuritis, cervical stenosis, myalgia, fibromyalgia. and sacroiliitis. She also has a past medical history significant for COPD. She is on continuous oxygen. Patient underwent recent L5-S1 epidural steroid injection done on 11/20/2021 that she states gave her 100% relief for 4 days and then her pain returned but upon discussing her pain her leg symptoms is still better. It is her back pain. Patient also underwent previous C7-T1 cervical epidural steroid injection done on 07/31/2021 and she states that she had 90% relief for 2 months. At this time, her neck and arm symptoms are still controlled She underwent previous bilateral L3-S1 facet RFA done on 08/13/20 and had 80% relief of the back pain until recently. She lifted her walker. Since then the back pain has gotten worse. She rates it a 9/10. She continues on gabapentin 1200 mg 3 times a day as well as baclofen 10 mg up to 3 times a she also uses medical marijuana. She tolerates these all fairly well. They do help her. Unfortunate, not quite enough. 1 Amended By: Shayna Malloy; Dec 02 2021 2:36 PM ESTReview of Systems 13 systems all normal except noted in HP. Active Problems Allergic rhinitis (477.9) (J30.9) Anemia of chronic disorder (285.29) (D63.8) Arthritis of right acromioclavicular joint (716.91) (M19.011) Atrial fibrillation (427.31) (I48.91) Benign essential hypertension (401.1) (I10) Bilateral sacroiliitis (720.2) (M46.1) Body mass index (BMI) of 40.0 to 44.9 in adult (V85.41) (Z68.41) Breast cancer screening (V76.10) (Z12.39) Cellulitis of labia majora (616.10) (N76.2) Cervical neuritis (723.4) (M54.12) Cervical os stenosis (622.4) (N88.2) Chills (780.64) (R68.83) Chronic asthmatic bronchitis with acute exacerbation (466.0,493.92) (J44.1) Chronic low back pain (724.2,338.29) (M54.50,G89.29) Chronic lumbar radiculopathy (724.4) (M54.16) Chronic obstructive lung disease (496) (J44.9) Chron (more content not included)... Normal [employer] Office Visit (Internal Medic ine)on 12-02-2021 Follow-up visit Diagnoses/Problems Assessed Vitamin D deficiency (268.9) (E55.9) RLS (restless legs syndrome) (333.94) (G25.81) Type 2 diabetes mellitus with peripheral neuropathy (250.60,357.2) (E11.42) Depression, major, 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) Orders Benign essential hypertension, Hypercholesterolemia, Hypokalemia, Type 2 diabetes mellitus with peripheral neuropathy Comprehensive Metabolic Panel; Status:Canceled; Perform:Lab Services - Lab To Draw (Blood Test); Due:24Mar2021; Last Updated By:Jacqui Huang; 12/02/2021 3:02:42 PM;Ordered; For:Benign essential hypertension, Hypercholesterolemia, Hypokalemia, Type 2 diabetes mellitus with peripheral neuropathy; Ordered By:Gregg Miller; Diabetes Complete Blood Count + Differential; Status:Active - Retrospective By Protocol Authorization; Requested for:01Apr2022; Perform:Lab Services - Lab To Draw (Blood Test); Due:30Jun2022; Last Updated By:Jacqui Huang; 12/02/2021 3:02:42 PM;Ordered; For:Diabetes; Ordered By:Gregg Miller; Comprehensive Metabolic Panel; Status:Active - Retrospective Authorization; Requested for:01Apr2022; Perform:Lab Services - Lab To Draw (Blood Test); Due:30Jun2022; Last Updated By:Jacqui Huang; 12/02/2021 3:02:42 PM;Ordered; For:Diabetes; Ordered By:Gregg Miller; Hemoglobin A1C; Status:Active - Retrospective By Protocol Authorization; Requested for:01Apr2022; Perform:Lab Services - Lab To Draw (Blood Test); Due:30Jun2022; Last Updated By:Jacqui Huang; 12/02/2021 3:02:42 PM;Ordered; For:Diabetes; Ordered By:Gregg Miller; Hypercholesterolemia Lipid Panel; Status:Canceled; Perform:Lab Services - Lab To Draw (Blood Test); Due:24Mar2021; Last Updated By:Jacqui Huang; 12/02/2021 3:02:42 PM;Ordered; For:Hypercholesterolemia; Ordered By:Gregg Miller; Paroxysmal atrial fibrillation with RVR Echocardiogram; Status:Canceled; Perform:[facility] ([facility]); Order Comments:01/06/21 @ ARRIVAL TIME OF 5:45 AM DUE TO THE STRESS FIRSTDR. PAUL TO READ; Due:24Mar2021; Last Updated By:Jacqui Huang; 12/02/2021 3:02:42 PM;Ordered; For:Paroxysmal atrial fibrillation with RVR; Ordered By:Gregg Miller; RLS (restless legs syndrome) Renew: rOPINIRole HCl - 0.5 MG Oral Tablet; TAKE 1 TABLET Bedtime Rx By: Gregg Miller; Dispense: 90 Days ; #:90 Tablet; Refill: 3;For: RLS (restless legs syndrome); ALY = N; Verified Transmission to [facility]; Last Updated By: Korin Jackson; 12/02/2021 11:39:12 AM Type 2 diabetes mellitus with peripheral neuropathy Hemoglobin A1C; Status:Canceled; Perform:Lab Services - Lab To Draw (Blood Test); Due:24Mar2021; Last Updated By:Jacqui Huang; 12/02/2021 3:02:42 PM;Ordered; For:Type 2 diabetes mellitus with peripheral neuropathy; Ordered By:Gregg Miller; Vitamin D deficiency Start: Vitamin D (Ergocalciferol) 1.25 MG (03170 UT) Oral Capsule; TAKE 1 CAPSULE WEEKLY Rx By: Gregg Miller; Dispense: 84 Days ; #:12 Capsule; Refill: 3;For: Vitamin D deficiency; ALY = N; Verified Transmission to [facility]; Last Updated By: Renetta [employer]; 12/02/2021 11:39:10 AM Vitamin D 25-Hydroxy; Status:Active - Retrospective By Protocol Authorization; Requested for:01Apr2022; Perform:Lab Services - Lab To Draw (Blood Test); Due:[id number]; Last Updated By:Jacqui Huang; 12/02/2021 3:02:42 PM;Ordered; For:Vitamin D deficiency; Ordered By:Gregg Miller; Patient Discussion/Summary F/U 4 MO CMP HGA1C VIT D 25 OH CBC Provider Impressions 1800 RON ADA HGA1C GOAL LESS THAN 7 LOSE WT EXERCISE DAILY MONITOR BP GOAL BP LOWER THAN 130/80 LOW SALT EXERCISE DAILY MDM 1) COMPLEXITY: MORE THAN 1 STABLE CHRONIC CONDITION ADDRESSED 2)DATA: TESTS INTERPRETED AND OR ORDERED, TOOK INDEPENDENT HISTORY OR RECORDS REVIEWED 3)RISK: MODERATE RISK DUE TO NATURE OF MEDICAL CONDITIONS/COMORBIDITY OR MEDICATIONS ORDERED OR SURGICAL OR PROCEDURE REFERRAL, . Chief Complaint 4 MO FU WITH LABS; NO CONCERNS TODAY History of Present IllnessHERE FOR F/U NO COMPLAINT Review of Systems Constitutional: not feeling poorly, no fever, no recent weight gain and no recent weight loss. Eyes: no blurred vision and no diplopia. ENT: no hearing loss, no tinnitus, no earache, no sore throat, no hoarseness and no swollen glands in the neck. Cardiovascular: no chest pain, no tightness or heavy pressure, no shortness of breath, no palpitations and no lower extremity edema. Respiratory: no cough, not coughing up sputum and no wheezing that is consistent with asthma. Gastrointestinal: no change in bowel habits, no diarrhea, no constipation, no bloody stools, no nausea, no vomiting, no abdominal pain, no signs and symptoms of ulcer disease, no bernard colored stools and no intolerance to fatty foods. Genitourinary: no urinary frequency, no dysuria, no burning sensation during urination and no hematuria. Musculoskeletal: no arthralgias, no joint stiffness, no muscle weakness, no isaak (more content not included)... Normal [facility] Tobacco Screening.on 022 Fall risk assessment a) No falls within the last year -[facility] Work Phone: Tobacco use status [facility] b) No [facility] Work Phone: No Panel Informationon 11-20 Please click on the link to view the study images Normal -[facility] Work Phone: COMPREHENSIVE PANELon 2021 Albumin [Mass/Vol] 4.0 g/dL Normal 3.4 - 5.0 [facility] Comment on above: Performed By: #### C MP #### [address] [address] ALP [Catalytic activity/Vol] 72 U/L Normal 33 - 136 [facility] Comment on above: Performed By: #### C MP #### [address] [address] ALT [Catalytic activity/Vol] 10 U/L Normal 7 - 45 [facility] Comment on above: Result Comment: Abiola ents treated with Sulfasalazine may generate falsely decreased results for ALT. Performed By: #### C MP #### [address] [address] Anion gap [Moles/Vol] 11 mmol/L Normal 10 - 20 [facility] Comment on above: Performed By: #### C MP #### [address] [address] AST [Catalytic activity/Vol] 12 U/L Normal 9 - 39 [facility] Comment on above: Performed By: #### C MP #### [address] [address] Bilirubin [Mass/Vol] 0.5 mg/dL Normal 0.0 - 1.2 [facility] Comment on above: Performed By: #### C MP #### [address] [address] Calcium [Mass/Vol] 8.8 mg/dL Normal 8.6 - 10.3 [facility] Comment on above: Performed By: #### C MP #### [address] [address] Chloride [Moles/Vol] 104 mmol/L Normal 98 - 107 [facility] Comment on above: Performed By: #### C MP #### [address] [address] Creatinine [Mass/Vol] 0.72 mg/dL Normal 0.50 - 1.05 [facility] Comment on above: Performed By: #### C MP #### [address] [address] GFR/1.73 sq M.predicted among non-blacks MDRD (S/P/Bld) [Vol rate/Area] 88 mL/min/{1.73_m2} Normal >90 [facility] Comment on above: Result Comment: CALC ULATIONS OF ESTIMATED GFR ARE PERFORMED USING THE 2020 CKD-EPI STUDY REFIT EQUATION WITHOUT THE RACE VARIABLE FOR THE IDMS-TRACEABLE CREATININE METHODS. https://jasn.asnjournals.org/content//ASN.44837 24286 Performed By: #### C MP #### [address] [address] Glucose [Mass/Vol] 107 mg/dL High 74 - 99 [facility] Comment on above: Performed By: #### C MP #### [address] [address] HCO3 (Bld) [Moles/Vol] 29 mmol/L Normal 21 - 32 [facility] Comment on above: Performed By: #### C MP #### [address] [address] Potassium [Moles/Vol] 4.2 mmol/L Normal 3.5 - 5.3 [facility] Comment on above: Performed By: #### C MP #### [address] [address] Protein [Mass/Vol] 6.5 g/dL Normal 6.4 - 8.2 [facility] Comment on above: Performed By: #### C MP #### [address] [address] Sodium [Moles/Vol] 140 mmol/L Normal 136 - 145 [facility] Comment on above: Performed By: #### C MP #### [address] [address] Urea nitrogen [Mass/Vol] 8 mg/dL Normal 6 - 23 [facility] Comment on above: Performed By: #### C MP #### [address] [address] HEMOGLOBIN A1Con 11-18-2021 Glucose [Mass/Vol] 140 mg/dL Normal [facility] Comment on above: Performed By: #### H BA1E #### [address] [address] HbA1c (Bld) [Mass fraction] 6.5 % Abnormal [facility] Comment on above: Result Comment: Diag nosis of Diabetes-Adults Non-Diabetic: < or = 5.6% Increased risk for developing diabetes: 5.7-6.4% Diagnostic of diabetes: > or = 6.5% . Monitoring of Diabetes Age (y) Therapeutic Goal (%) Adults: >18 <7.0 Pediatrics: 13-18 <7.5 7-12 <8.0 0- 6 7.5-8.5 [employer]. Diabetes Care 33(S1), Oct 2009. Performed By: #### H BA1E #### [address] [address] Hemoglobin A1Con 11-18-2021 Glucose [Mass/Vol] 140 mg/dL [facility] Work Phone: [phone] HbA1c (Bld) [Mass fraction] 6.5 % Abnormal [facility] Work Phone: [phone] Comment on above: Diagnosis of Diabete s-Adults Non-Diabetic: < or = 5.6% Increased risk for developing diabetes: 5.7-6.4% Diagnostic of diabetes: > or = 6.5%. Monitoring of Diabetes Age (y) Therapeutic Goal (%) Adults: >18 <7.0 Pediatrics: 13-18 <7.5 7-12 <8.0 0- 6 7.5-8.5 [employer]. Diabetes Care 33(S1), Oct 2009. Laboratory - Chemistry and C hemistry - challengeon 11-18-2021 Albumin BCP dye [Mass/Vol] 4.0 g/dL 3.4 - 5.0 [facility] Work Phone: [phone] ALP [Catalytic activity/Vol] 72 U/L 33 - 136 [facility] Work Phone: [phone] ALT With P-5'-P [Catalytic activity/Vol] 10 U/L 7 - 45 [facility] Work Phone: [phone] Comment on above: Patients treated wit h Sulfasalazine may generate falsely decreased results for ALT. Anion gap [Moles/Vol] 11 mmol/L 10 - 20 [facility] Work Phone: [phone] AST With P-5'-P [Catalytic activity/Vol] 12 U/L 9 - 39 [facility] Work Phone: [phone] Bilirubin [Mass/Vol] 0.5 mg/dL 0.0 - 1.2 [facility] Work Phone: [phone] Calcium [Mass/Vol] 8.8 mg/dL 8.6 - 10.3 [facility] Work Phone: [phone] Chloride [Moles/Vol] 104 mmol/L 98 - 107 [facility] Work Phone: [phone] CO2 [Moles/Vol] 29 mmol/L 21 - 32 [facility] Work Phone: [phone] Creatinine [Mass/Vol] 0.72 mg/dL See Below [facility] Work Phone: [phone] Comment on above: Reference Range: 0.5 0 - 1.05 Glucose [Mass/Vol] 107 mg/dL above high threshold 74 - 99 [facility] Work Phone: [phone] Potassium [Moles/Vol] 4.2 mmol/L 3.5 - 5.3 [facility] Work Phone: [phone] Protein [Mass/Vol] 6.5 g/dL 6.4 - 8.2 [facility] Work Phone: [phone] Sodium [Moles/Vol] 140 mmol/L 136 - 145 [facility] Work Phone: [phone] Urea nitrogen [Mass/Vol] 8 mg/dL 6 - 23 [facility] Work Phone: [phone] Mamm - Screening Mammogram w / Tomosynthesison 11-18-2021 MG Breast Screening Normal [facility] Work Phone: [phone] Panel Informationon 11-18 88 {mL/min/1.73m2} >90 [facility] Work Phone: [phone] Comment on above: CALCULATIONS OF BEBETO MATED GFR ARE PERFORMED USING THE 2020 CKD-EPI STUDY REFIT EQUATION WITHOUT THE RACE VARIABLE FOR THE IDMS-TRACEABLE CREATININE METHODS.https://jasn.asnjournals.org/content/early//A SN.5428589789 Radiologyon 11-18-2021 XR Foot 2 Views Normal [facility] Work Phone: [phone] VITAMIN B12on 11-18-2021 Cobalamin (Vitamin B12) [Mass/Vol] 1000 pg/mL High 211 - 911 [facility] Comment on above: Performed By: #### V TB12 #### [address] [place] [address] VITAMIN D, 25-HYDROXYon VITAMIN D, 25-HYDROXY 22 ng/mL Abnormal [facility] Comment on above: Result Comment: . DEFICIENCY: < 20 NG/ML INSUFFICIENCY: 20-29 NG/ML SUFFICIENCY: 30-100 NG/ML THIS ASSAY ACCURATELY QUANTIFIES THE SUM OF VITAMIN D3, 25-HYDROXY AND VIT D2,25-HYDROXY. Performed By: #### C OV19 #### [facility] [address] [place] [address] Vitamin B12, Serumon 022 Cobalamin (Vitamin B12) [Mass/Vol] 1000 pg/mL above high threshold 211 - 911 [facility] Work Phone: [phone] Vitamin D 25-Hydroxyon 11-18 25-hydroxyvitamin D3 [Mass/Vol] 22 ng/mL Abnormal [facility] Work Phone: [phone] Comment on above: .DEFICIENCY: < 20 NG /MLINSUFFICIENCY: 20-29 NG/MLSUFFICIENCY: 30-100 NG/MLTHIS ASSAY ACCURATELY QUANTIFIES THE SUM OFVITAMIN D3, 25-HYDROXY AND VIT D2,25-HYDROXY. Established Visit (Pain Medi cine)on 11-04-2021 Established Visit (Pain Medicine) Diagnoses/Problems Chronic low back pain (724.2,338.29) (M54.50,G89.29) Cervical neuritis (723.4) (M54.12) Chronic lumbar radiculopathy (724.4) (M54.16) Fibromyalgia (729.1) (M79.7) 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) Neurogenic claudication due to lumbar spinal stenosis (724.03) (M48.062) Left foot pain (729.5) (M79.672) Orders Fibromyalgia, Foraminal stenosis of cervical region Xray Foot 2 View; Status:Hold For - Scheduling; Requested for:04Nov2021; Laterality : Left Radiologist to Determine Optimal Study : Y What are the patient's signs and symptoms? : left foot pain Provider Impressions Patient is a 71year-old female with a past medical history significant for lumbar spondylosis, myalgia, chronic pain, right shoulder pain/AC joint arthritis, sacroiliitis, fibromyalgia, myalgia, lumbar stenosis, lumbar neuritis, and cervical neuritis. She continues on the baclofen 10 mg up to 3 times a day as needed. She also continues on gabapentin 1200 mg 3 times a day. She tolerates these well. No side effects. She takes them as prescribed. She does not require any refills. She underwent recent C7-T1 epidural steroid injection done on 07/31/2021 that she states gave her 90% relief for 2 months. Unfortunate, some of her pain has begun to return and she does feel that she needs to have another injection in the future but at this time her lower back and leg symptoms are still much more bothersome. This affects her ambulatory status. This affects her quality of life and activities of daily. Affects her ability to get comfortable. She had a lumbar MRI that we reviewed today. I recommended to patient an L5-S1 epidural steroid injection for both diagnostic and therapeutic purposes. Procedure was discussed. Risks and benefits were discussed. Patient is agreeable. She will follow up 2 weeks after the injection for reevaluation. Call clinic sooner if necessary. Patient also inquired about possibly doing something to her left foot. She states that she dropped a book on it while they were moving and it never got better. We will obtain an x-ray and discuss options at her follow-up visit after her epidural. Chief Complaint FUV for MRI results today having pain in bilat lower back radiating into bilat gluteal and down the back of her legs stopping at the ankles, intermittently into rt foot.rates pain 8/10 now and 10/10 with ADLs. describes the pain as a deep ache with sitting and sharp stabbing and like a marcela being shoved u her back when she is sitting up in bed. Baclofen is not helping her back much with he back but is helping the stinging in her feet. Screenings Depression, Smoking negative, BMI 40 N/A due to age Adult Risk Screening Living Will. Living Will: Living will on file. Healthcare POA: Health care proxy on file. Domestic Violence Screen: Does not feel threatened or abused physically, emotionally or sexually. Do you feel UNSAFE? The patient feels safe in the home. Depression/Suicide Screening: During the past 2 weeks, the patient has not felt down, depressed or hopeless. During the past 2 weeks, the patient has not felt little interest or pleasure in doing things. She does not have a risk of suicide. She has not had thoughts of harming others. Reference Documentation See scanned note Review of systems . History of Present Illness On a scale of 0 to 10, the patient rates the pain at 8. now and 10/10 with standing, sitting and ADLs. Pain Location: Low Back Pain and bilat sides. Pain Quality: Aching and with sitting and gets sharp with standing at times feels like a marcela is being shoved up her back. Pain Radiation: nto bilat gluteal and down the back of her legs stopping at the ankles, intermittently into rt foot. Sensory/ Motor: Numbness, Pins and [place] and bilat feet. Timing/Duration: Constant and > 12 weeks duration. Exacerbating Factors: motion, sitting, standing, walking and weightbearing. Alleviating Factors: None. Patient Education:1 Inj. education completed written and verbally.1 . Patient is a 71-year-old female with a past medical history significant for tremors, lumbar spondylosis, chronic pain, myalgia, lumbar stenosis, lumbar neuritis, cervical neuritis, cervical stenosis, myalgia, fibromyalgia. and sacroiliitis. She also has a past medical history significant for COPD. She is on continuous oxygen. She had an injection back in July but she failed to follow-up afterwards because she became very ill. She is just now starting to feel better. Patient underwent C7-T1 cervical epidural steroid injection done on 07/31/2021 and she states that she had 90% relief for 2 months. Unfortunate, over the last few weeks she has noticed that her neck and arm symptoms are beginning to return but her lower back and leg symptoms are still much more bothersome. She underwent bilateral L3-S1 facet RFA done on 08/13/20 and had 80% relief of the back pain she continues to have back pain with bilateral leg pain that (more content not included)... Normal [facility] MRI L Spine without Contrast on 10-22-2021 MR Lumbar spine WO contrast Normal [facility] Work Phone: Office Visit (Internal Medic ine)on 10-19-2021 Follow-up visit Diagnoses/Problems Assessed Diabetic neuropathy (250.60,357.2) (E11.40) Diabetes (250.00) (E11.9) Chronic obstructive lung disease (496) (J44.9) Morbid obesity with BMI of 40.0-44.9, adult (278.01,V85.41) (E66.01,Z68.41) Benign essential hypertension (401.1) (I10) Recurrent major depressive disorder, remission status unspecified (296.30) (F33.9) Chronic respiratory failure (518.83) (J96.10) Cor pulmonale (416.9) (I27.81) Atrial fibrillation (427.31) (I48.91) Orders Diabetic neuropathy Renew: DULoxetine HCl - 40 MG Oral Capsule Delayed Release Particles; 1 CAP BID Rx By: Gregg Miller; Dispense: 0 Days ; #:30 Capsule; Refill: 11;For: Diabetic neuropathy; ALY = N; Verified Transmission to [facility]; Last Updated By: Korin Jackson; 10/19/2021 11:48:10 AM Obstructive sleep apnea syndrome in adult Renew: rOPINIRole HCl - 0.5 MG Oral Tablet; take 1 tab PO daily 1-3 hrs before bedtime Rx By: Gregg Miller; Dispense: 0 Days ; #:30 Tablet; Refill: 5;For: Obstructive sleep apnea syndrome in adult; ALY = N; Sent To: [facility]; Last Updated By: Jacqui Huang; 10/19/2021 11:27:23 AM Patient Discussion/Summary F/U BEFORE Provider Impressions TYLENOL OTC/PRN 1800 RON ADA HGA1C GOAL LESS THAN 7 LOSE WT EXERCISE DAILY WILL ADJUST CYMBLTA WHICH HELPS HER DEPRESSION AND BODYACHE ALL OTHER ASSESSED CHRONIC CONDITIONS ARE STABLE. MDM 1) COMPLEXITY: 1 OR MORE CHRONIC CONDITION WITH EXACERBATION, OR PROGRESSION OR SIDE EFFECT OF TREATMENT ADDRESSED 2)DATA: TESTS INTERPRETED AND OR ORDERED, TOOK INDEPENDENT HISTORY OR RECORDS REVIEWED 3)RISK: MODERATE RISK DUE TO NATURE OF MEDICAL CONDITIONS/COMORBIDITY OR MEDICATIONS ORDERED OR SURGICAL OR PROCEDURE REFERRAL, . Chief Complaint An interactive audio and video telecommunication system which permits real time communications between the patient (at the originating site) and provider (at the distant site) was utilized to provide this telehealth service. Verbal consent was requested and obtained from TISH BUTLER on this date, 10/19/2021 11:45 AM , for a telehealth visit. F/U WITH COLON AND CT. C/O BODY PAIN/ACHES History of Present IllnessF/U AFTER TESTS C/O BODY ACHE, HAS BEEN MORE DEPRESSED NO ABDOMINAL PAIN NO DIARRHEA RE[PRTS THE BS HAS BEEN GOOD AT HOME Review of Systems Constitutional: not feeling poorly, no fever, no recent weight gain and no recent weight loss. Eyes: no blurred vision and no diplopia. ENT: no hearing loss, no tinnitus, no earache, no sore throat, no hoarseness and no swollen glands in the neck. Cardiovascular: no chest pain, no tightness or heavy pressure, no shortness of breath, no palpitations and no lower extremity edema. Respiratory: no cough, not coughing up sputum and no wheezing that is consistent with asthma. Gastrointestinal: no change in bowel habits, no diarrhea, no constipation, no bloody stools, no nausea, no vomiting, no abdominal pain, no signs and symptoms of ulcer disease, no bernard colored stools and no intolerance to fatty foods. Genitourinary: no urinary frequency, no dysuria, no burning sensation during urination and no hematuria. Musculoskeletal: no arthralgias, no joint stiffness, no muscle weakness, no back pain and no difficulty walking. Skin: no rashes, no change in skin color and pigmentation, no skin lesions and no skin lumps. Neurological: no headaches, no dizziness, no seizures, no tingling, no numbness, no signs and symptoms of stroke and no limb weakness. Psychiatric: depression, but no confusion, no memory lapses or loss and no sleep disturbances. Endocrine: no goiter, no thyroid disorder, no diabetes mellitus, no excessive thirst, no dry skin, no cold intolerance, no heat intolerance and no increased urinary frequency. Hematologic/Lymphatic: is not slow to heal, does not bleed easily, does not bruise easily, no thrombophlebitis, no anemia and no history of blood transfusion. All other systems have been reviewed and are negative for complaint. Active Problems Problems Allergic rhinitis (477.9) (J30.9) Anemia of chronic disorder (285.29) (D63.8) Arthritis of right acromioclavicular joint (716.91) (M19.011) Atrial fibrillation (427.31) (I48.91) Benign essential hypertension (401.1) (I10) Bilateral sacroiliitis (720.2) (M46.1) Body mass index (BMI) of 40.0 to 44.9 in adult (V85.41) (Z68.41) Breast cancer screening (V76.10) (Z12.39) Cellulitis of labia majora (616.10) (N76.2) Cervical neuritis (723.4) (M54.12) Cervical os stenosis (622.4) (N88.2) Chills (780.64) (R68.83) Chronic asthmatic bronchitis with acute exacerbation (466.0,493.92) (J44.1) Chronic low back pain (724.2,338.29) (M54.50,G89.29) Chronic lumbar radiculopathy (724.4) (M54.16) Chronic obstructive lung disease (496) (J44.9) Chronic respiratory failure (518.83) (J96.10) COPD exacerbation (491.21) (J44.1) Cor pulmonale (416.9) (I27.81) Cough (786.2) (R05.9) Dependen (more content not included)... Normal [facility] Tobacco Screening.on 022 Fall risk assessment a) No falls within the last year [facility] Work Phone: Tobacco use status [facility] b) No [facility] Work Phone: Laboratory - Chemistry and C hemistry - challengeon 10-15-2021 Glucose [Mass/Vol] 84 mg/dL 74 - 99 [facility] Work Phone: No Panel Informationon 10-15 [facility] Work Phone: [email or web address] [facility] Work Phone: [facility] Surgical Pathology Depar tmenton 10-15-2021 [facility] Surgical Pathology Department Name TISH BUTLER Pathologist: YOU PELLETIER MD Date of Procedure: 10/15/2021 Date Received: 10/15/2021 Date Reported 10/16/2021 Submitting Physician: GREGG MILLER M.D. Location: [facility] Other External # Procedures/Addenda Present FINAL DIAGNOSIS A. TRANSVERSE COLON POLYP: --PLANT/FOOD MATERIAL, AND SCANT SUPERFICIAL FRAGMENTS OF COLONIC MUCOSA, NEGATIVE FOR POLYP PATHOLOGY B. RECTAL BIOPSY: --FOCAL ACTIVE PROCTITIS, SEE COMMENT Comment: Leading dIfferential considerations would include infectious etiologies, and medication injury among others. No definitive chronicity features seen. No organisms seen on routine staining. The gross and/or microscopic findings were reviewed in conjunction with surgical pathology fellow, Dylan Guerin M.D. Electronically Signed Out By YOU PELLETIER MD/[facility] By the signature on this report, the individual or group listed as making the Final Interpretation/Diagnosis certifies that they have reviewed this case. Addendum/Procedures: Addendum Date Ordered: 10/19/2021 Status: Signed Out Date Complete: 10/19/2021 Date Reported: 10/19/2021 Addendum Diagnosis A. TRANSVERSE COLON POLYP: Deeper sections reveal minimal colonic tissue with features suggestive of tubular adenoma. By the signature on this report, the individual or group listed as making the Final Interpretation/Diagnosis certifies that they have reviewed this case. Clinical History: Physician Contact Number: [phone] Fixative (A): Formalin Fixative (B): Formalin Clinical Diagnosis History: screening Specimens Submitted As: A: TRANSVERSE COLON POLYP B: RECTAL BIOPSY Gross Description: A: Received in formalin, labeled with the patient's name and hospital number and transverse colon polyp, are multiple fragments of jasmine, organic material aggregating to 0.3 x 0.2 x 0.1 cm. No soft tissue identified. The specimen is submitted in toto in one cassette. DPG B: Received in formalin, labeled with the patient's name and hospital number and rectal biopsy, are 2 fragments of jasmine, soft tissue aggregating to 0.5 x 0.2 x 0.1 cm. The specimen is submitted in toto in one cassette. DPG dpg/10/16/2021 [facility] Department of Pathology [address] [place] [address] Normal [facility] Comment on above: Performed By: #### C OV19 #### [place] [address] CORONAVIRUS 2019, SCREEN ASY MPTOMATICon 10-12-2021 SARS-CoV-2 (COVID-19) RNA TOMAS+probe Ql (Unsp spec) Not detected Normal Not Detected [facility] Comment on above: Result Comment: . This assay is designed to detect the N, ORF1ab and/or S genes of SARS-CoV-2 via nucleic acid amplification. A Negative (NOT DETECTED) result does not preclude 2019-nCoV infection since the adequacy of sample collection and/or low viral burden may result in presence of viral nucleic acids below the clinical sensitivity of this test method. Negative (NOT DETECTED) result should not be used as the sole basis for treatment or other patient management decisions. Rather negative results should be combined with clinical observations, patient history, and epidemiological information to make patient management decisions. Fact sheet for providers: https://www.fda.gov/media/158847/download Fact sheet for patients: https://www.fda.gov/media/605359/download This test has received FDA Emergency Use Authorization (EUA) and has been verified by [facility] ([facility]). This test is only authorized for the duration of time that circumstances exist to justify the authorization of the emergency use of in vitro diagnostic tests for the detection of SARS-CoV-2 virus and/or diagnosis of COVID-19 infection under section 564(b)(1) of the Act, 21 U.S.C. 360bbb-3(b)(1), unless the authorization is terminated or revoked sooner. [facility] is certified under CLIA-88 as qualified to perform high complexity testing. Testing is performed in the [facility] laboratories located at [address] [place] [address]. Performed By: #### C OVSC #### [place] [address] Lab Specimen Source Nasal, Nasopharyngeal Normal [facility] Comment on above: Performed By: #### C OVSC #### [place] [address] Coronavirus 2019 RNA by PCR, Screening Asymptomticon 10-12-2021 Coronavirus 2019 RNA by PCR, Screening Asymptomtic Not detected Normal See Below -[facility] Work Phone: Comment on above: SOURCE: Nasal, Nasop haryngealReference Range: Not Detected.This assay is designed to detect the N, ORF1ab and/or S genes of SARS-CoV-2 via nucleic acid amplification. A Negative (NOT DETECTED) result does not preclude 2019-nCoV infection since the adequacy of sample collection and/or low viral burden may result in presence of viral nucleic acids below the clinical sensitivity of this test method. Negative (NOT DETECTED) result should not be used as the sole basis for treatment or other patient management decisions. Rather negative results should be combined with clinical observations, patient history, and epidemiological information to make patient management decisions.Fact sheet for providers: https://www.fda.gov/media/892753/downloadFact sheet for patients: https://www.fda.gov/media/952090/downloadThis test has received FDA Emergency Use Authorization (EUA) and has been verified by [facility] ([facility]). This test is only authorized for the duration of time that circumstances exist to justify the authorization of the emergency use of in vitro diagnostic tests for the detection of SARS-CoV-2 virus and/or diagnosis of COVID-19 infection under section 564(b)(1) of the Act, 21 U.S.C. 360bbb-3(b)(1), unless the authorization is terminated or revoked sooner. [facility] is certified under CLIA-88 as qualified to perform high complexity testing. Testing is performed in the [facility] laboratories located at [address] [place] [address]. Covid 19 Resultson 2 SARS-CoV-2 (COVID-19) RNA TOMAS+probe Ql (Unsp spec) NEGATIVE COVID-19 Test Coronaviruses are common world-wide and are the cause of many common colds. SARS-COV2 is a new coronavirus that began circulating worldwide in 2019 so we are calling it COVID-19. It has been estimated that four out of five patients with COVID-19 will recover at home without the need for medical attention. Symptoms of COVID-19 may include cough, fever, shortness of breath, loss of taste or smell and other flu-like symptoms including chills, sore muscles, sore throat, and headache. Severe illness is more common in older people and people with other health problems such as high blood pressure, obesity, and immune system problems. If the test is positive, you have COVID-19. You will be contacted by the ordering physicians office and instructed to remain on home isolation, in accordance with CDC guidelines. You may also be contacted by the [facility] to see if any of your close contacts may have been exposed to the virus and need to quarantine. If the test is negative, you likely do not have COVID-19 at this time, but you still may have a different illness that can spread to other people (like Influenza, or the Flu) and could still be at risk for getting COVID-19. We recommend that you stay away from other people to limit the spread of illness until your symptoms are improving and you are fever-free for 24 hours without the use of fever lowering medications such as acetaminophen or ibuprofen. No test is 100% accurate so if you are still concerned you may have COVID-19, talk to your doctor about the need to continue to stay away from others. Medicines Unless your provider told you not to use the following: Acetaminophen (Tylenol and others) is generally safe. Anti-inflammatory medications, such as Ibuprofen (Advil or Motrin) or Naproxen (Aleve) can also be used. Wcun-pox-mohqpfd cough and cold medicines can be used according to the instructions on the package. Some ihny-lxt-hrekcdv medicines also contain acetaminophen. Make sure you are not taking more than your recommended dose. For those not hospitalized, there is no specific treatment available for this illness. Antibiotics do not treat Coronaviruses. Follow-Up Follow up with your doctor by scheduling a virtual visit or consider follow-up at one of our urgent care fever clinics. If you are having difficulty breathing, or are very weak and having difficulty standing, this is a medical emergency. Call 911 or have someone take you to the nearest emergency room immediately. If possible, wear a facemask. Additional guidance from the CDC for patients who tested POSITIVE for COVID-19 How to isolate: Isolate yourself in a specific room at home and limit your contact with others. Use a separate bathroom from other members of the household, when possible. Leave home only to get essential medical care. Do not go to work, school or public areas. Avoid using public transportation, ride-sharing, or taxis. Restrict contact with pets and other animals. If you must care for your pet or be around animals while you are sick, wash your hands before and after your interaction and wear a facemask. Make sure that shared spaces in the home have good airflow, such as by an air conditioner or an opened window, weather permitting. Personal Hygiene Procedures: Wear a face mask when in the same room as other people or pets. If a face mask interferes with your breathing, others should wear a mask when sharing space with you. Frequent hand-washing: wash your hands with soap and water for at least 20 seconds. If soap and water are not available, use alcohol-based hand ruffling machine operator. Avoid touching your eyes, nose, and mouth with unwashed hands. Household Hygiene Procedures: Avoid sharing personal household items such as dishes, glassware, cups, eating utensils, towels or bedding with other people or pets in your home. After use, these items should be washed with soap and hot water. Disinfect all high-touch surfaces every day with antibacterial cleaning solutions such as Lysol wipes, bleach, cleansers, etc. High-touch surfaces include tabletops, doorknobs, bathroom fixtures, toilets, phones, keyboards, tablets and bedside tables. Immediately clean any surfaces that may have blood, poop or body fluids on them, using antibacterial cleaning solutions such as Lysol wipes, bleach, cleansers, etc. If clothing or bedding come into contact with blood, poop or body fluids, they should be washed immediately. Follow the directions on the laundry detergent and clothing labels but hot water is recommended when possible. Stopping home isolation precautions: If possible, consult your doctor before stopping home isolation precautions. According to the CDC, you can discontinue home isolation precautions when you have met both of these criteria: Your fever and respiratory symptoms have been gone for 24 yaa (more content not included)... Normal [facility] CT Chest with Contraston CT Chest W contrast IV Normal [facility] Internal Medicine Work Phone: Blood Urea Nitrogen, Serumon 09-16-2021 Urea nitrogen [Mass/Vol] 16 mg/dL 6 - 23 [facility] Internal Medicine Work Phone: CREATININEon 09-16-2021 Creatinine [Mass/Vol] 0.81 mg/dL Normal 0.50 - 1.05 [facility] Comment on above: Performed By: #### C OV19 #### [facility] [address] [place] [address] GFR- AM. >60 Normal >60 [facility] Comment on above: Result Comment: CALC ULATIONS OF ESTIMATED GFR ARE PERFORMED USING THE MDRD STUDY EQUATION FOR THE IDMS-TRACEABLE CREATININE METHODS. CLIN CHEM 2007;53:766-89 Performed By: #### C OV19 #### [facility] [address] [place] [address] GFR-NON AM. >60 Normal >60 [facility] Comment on above: Performed By: #### C OV19 #### [facility] [address] [place] [address] Creatinine, Serumon 09-16-20 Creatinine [Mass/Vol] 0.81 mg/dL See Below [facility] Internal Medicine Work Phone: Comment on above: Reference Range: 0.5 0 - 1.05 Creatinine, Serum >60 >60 [facility] Internal Medicine Work Phone: Comment on above: CALCULATIONS OF BEBETO MATED GFR ARE PERFORMED USING THE MDRD STUDY EQUATION FOR THE IDMS-TRACEABLE CREATININE METHODS. CLIN CHEM 2007;53:766-72 UREA NITROGENon 09-16-2021 Urea nitrogen [Mass/Vol] 16 mg/dL Normal 6 - 23 [facility] Comment on above: Performed By: #### U SHO #### [address] [place] [address] Office Visit (Internal Medic ine)on 09-15-2021 Follow-up visit Diagnoses/Problems Assessed COPD exacerbation (491.21) (J44.1) Chronic respiratory failure (518.83) (J96.10) Cor pulmonale (416.9) (I27.81) Dependence on supplemental oxygen (V46.2) (Z99.81) Orders COPD exacerbation Start: Benzonatate 200 MG Oral Capsule; TAKE 1 CAPSULE 3 TIMES DAILY NEEDED Rx By: Gregg Miller; Dispense: 7 Days ; #:21 Capsule; Refill: 0;For: COPD exacerbation; ALY = N; Sent To: [facility]; Last Updated By: Sociocast; 09/15/2021 1:21:59 PM Start: Dexamethasone 6 MG Oral Tablet; TAKE 1 TABLET DAILY Rx By: Gregg Miller; Dispense: 5 Days ; #:5 Tablet; Refill: 0;For: COPD exacerbation; ALY = N; Sent To: [facility]; Last Updated By: Sociocast; 09/15/2021 1:22:00 PM Start: levoFLOXacin 500 MG Oral Tablet; TAKE 1 TABLET DAILY DIRECTED Rx By: Gregg Miller; Dispense: 7 Days ; #:7 Tablet; Refill: 0;For: COPD exacerbation; ALY = N; Sent To: [facility]; Last Updated By: Sociocast; 09/15/2021 1:21:59 PM Patient Discussion/Summary CT CHEST WITH CONTRAST F/U 1 MO Provider Impressions PT. WAS INSTRUCTED TO INCREASE FLUID INTAKE ,TAKE TYLENOL 650 MG PO Q6H/PRN FOR PAIN OR FEVER AND TAKE ROBITUSSIN OTC 2 TSP Q 6H/PRN FOR COUGH. MDM 1) COMPLEXITY: 1 OR MORE CHRONIC CONDITION WITH EXACERBATION, OR PROGRESSION OR SIDE EFFECT OF TREATMENT ADDRESSED 2)DATA: TESTS INTERPRETED AND OR ORDERED, TOOK INDEPENDENT HISTORY OR RECORDS REVIEWED 3)RISK: MODERATE RISK DUE TO NATURE OF MEDICAL CONDITIONS/COMORBIDITY OR MEDICATIONS ORDERED OR SURGICAL OR PROCEDURE REFERRAL, . Chief Complaint An interactive audio and video telecommunication system which permits real time communications between the patient (at the originating site) and provider (at the distant site) was utilized to provide this telehealth service. Verbal consent was requested and obtained from TISH BUTLER on this date, 09/15/2021 02:00 PM , for a telehealth visit. 1 WK COVID F/U. C/O PRODUCTIVE COUGH, FATIGUE, VERY LOW ENERGY History of Present IllnessPT C/O PRODUCTIVE COUGH, JOE FOR 6 WEEKS SEVERITY: MODERATE CHARACTERISTIC: ACUTE ON CHRONIC EXACERBATION FACTOR: EXERTION RELIEVING FACTOR: REST ASSOCIATED SYMPTOMS: FATIGUE TIRED PRIOR TX: Z PAC , PREDNISONE Review of Systems ALL OTHER SYSTEMS HAVE BEEN REVIEWED AND ARE NEGATIVE Active Problems Problems Allergic rhinitis (477.9) (J30.9) Anemia of chronic disorder (285.29) (D63.8) Arthritis of right acromioclavicular joint (716.91) (M19.011) Atrial fibrillation (427.31) (I48.91) Benign essential hypertension (401.1) (I10) Bilateral sacroiliitis (720.2) (M46.1) Body mass index (BMI) of 40.0 to 44.9 in adult (V85.41) (Z68.41) Breast cancer screening (V76.10) (Z12.39) Cellulitis of labia majora (616.10) (N76.2) Cervical neuritis (723.4) (M54.12) Cervical os stenosis (622.4) (N88.2) Chills (780.64) (R68.83) Chronic asthmatic bronchitis with acute exacerbation (466.0,493.92) (J44.1) Chronic low back pain (724.2,338.29) (M54.50,G89.29) Chronic lumbar radiculopathy (724.4) (M54.16) Chronic obstructive lung disease (496) (J44.9) Chronic respiratory failure (518.83) (J96.10) COPD exacerbation (491.21) (J44.1) Cor pulmonale (416.9) (I27.81) Cough (786.2) (R05.9) Dependence on supplemental oxygen (V46.2) (Z99.81) Depression (311) (F32.A) Diabetes (250.00) (E11.9) Diabetic neuropathy (250.60,357.2) (E11.40) Dizziness (780.4) (R42) 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) Dysphagia (787.20) (R13.10) Edema of lower extremity (782.3) (R60.0) Essential tremor (333.1) (G25.0) Facet arthropathy, lumbar (721.3) (M47.816) Falls (E888.9) (W19.XXXA) Falls, subsequent encounter (V58.89,E888.9) (W19.XXXD) Fibromyalgia (729.1) (M79.7) Fibromyositis (729.1) (M79.7) Fissure in skin (709.8) (R23.4) 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) History of colonic polyps (V12.72) (Z86.010) Hypercholesterolemia (272.0) (E78.00) Hypokalemia (276.8) (E87.6) Hypoxemia (799.02) (R09.02) Morbid obesity (278.01) (E66.01) Morbid obesity with BMI of 40.0-44.9, adult (278.01,V85.41) (E66.01,Z68.41) Myalgia (729.1) (M79.10) Obstructive sleep apnea syndrome in adult (327.23) (G47.33) Osteoarthritis (715.90) (M19.90) Osteoporosis screening (V82.81) (Z13.820) Paroxysmal atrial fibrillation with RVR (427.31) (I48.0) STABLE Pleural effusion (511.9) (J90) Primary hypertriglyceridemia (272.1) (E78.1) Rib pain on right side (786.50) (R07.81) Right shoulder pain, unspecified chronicity (719.41) (M25.511) Runny nose (784.99) (R09.89) Screen for colon cancer (V76.51) (Z12.11) SOB (shortness of breath) on exertion (786.05) (R06.02) Statin intolerance (995.27) (Z78.9) Thrush (112.0) (B37.0) Tremor (781.0) (R25.1) Trochanteric bursitis of right hip (726.5) (M70.61) Type 2 diabetes mellitus with peripheral neuropathy (250.60,357.2) (E11.42) (more content not included)... Normal [facility] Covid 19 Resultson 1 SARS-CoV-2 (COVID-19) RNA TOMAS+probe Ql (Unsp spec) NEGATIVE COVID-19 Test Coronaviruses are common world-wide and are the cause of many common colds. SARS-COV2 is a new coronavirus that began circulating worldwide in 2019 so we are calling it COVID-19. It has been estimated that four out of five patients with COVID-19 will recover at home without the need for medical attention. Symptoms of COVID-19 may include cough, fever, shortness of breath, loss of taste or smell and other flu-like symptoms including chills, sore muscles, sore throat, and headache. Severe illness is more common in older people and people with other health problems such as high blood pressure, obesity, and immune system problems. If the test is positive, you have COVID-19. You will be contacted by the ordering physicians office and instructed to remain on home isolation, in accordance with CDC guidelines. You may also be contacted by the [facility] to see if any of your close contacts may have been exposed to the virus and need to quarantine. If the test is negative, you likely do not have COVID-19 at this time, but you still may have a different illness that can spread to other people (like Influenza, or the Flu) and could still be at risk for getting COVID-19. We recommend that you stay away from other people to limit the spread of illness until your symptoms are improving and you are fever-free for 24 hours without the use of fever lowering medications such as acetaminophen or ibuprofen. No test is 100% accurate so if you are still concerned you may have COVID-19, talk to your doctor about the need to continue to stay away from others. Medicines Unless your provider told you not to use the following: Acetaminophen (Tylenol and others) is generally safe. Anti-inflammatory medications, such as Ibuprofen (Advil or Motrin) or Naproxen (Aleve) can also be used. Oovx-zkx-vorijup cough and cold medicines can be used according to the instructions on the package. Some ekac-xkp-kedojhr medicines also contain acetaminophen. Make sure you are not taking more than your recommended dose. For those not hospitalized, there is no specific treatment available for this illness. Antibiotics do not treat Coronaviruses. Follow-Up Follow up with your doctor by scheduling a virtual visit or consider follow-up at one of our urgent care fever clinics. If you are having difficulty breathing, or are very weak and having difficulty standing, this is a medical emergency. Call 911 or have someone take you to the nearest emergency room immediately. If possible, wear a facemask. Additional guidance from the CDC for patients who tested POSITIVE for COVID-19 How to isolate: Isolate yourself in a specific room at home and limit your contact with others. Use a separate bathroom from other members of the household, when possible. Leave home only to get essential medical care. Do not go to work, school or public areas. Avoid using public transportation, ride-sharing, or taxis. Restrict contact with pets and other animals. If you must care for your pet or be around animals while you are sick, wash your hands before and after your interaction and wear a facemask. Make sure that shared spaces in the home have good airflow, such as by an air conditioner or an opened window, weather permitting. Personal Hygiene Procedures: Wear a face mask when in the same room as other people or pets. If a face mask interferes with your breathing, others should wear a mask when sharing space with you. Frequent hand-washing: wash your hands with soap and water for at least 20 seconds. If soap and water are not available, use alcohol-based hand ruffling machine operator. Avoid touching your eyes, nose, and mouth with unwashed hands. Household Hygiene Procedures: Avoid sharing personal household items such as dishes, glassware, cups, eating utensils, towels or bedding with other people or pets in your home. After use, these items should be washed with soap and hot water. Disinfect all high-touch surfaces every day with antibacterial cleaning solutions such as Lysol wipes, bleach, cleansers, etc. High-touch surfaces include tabletops, doorknobs, bathroom fixtures, toilets, phones, keyboards, tablets and bedside tables. Immediately clean any surfaces that may have blood, poop or body fluids on them, using antibacterial cleaning solutions such as Lysol wipes, bleach, cleansers, etc. If clothing or bedding come into contact with blood, poop or body fluids, they should be washed immediately. Follow the directions on the laundry detergent and clothing labels but hot water is recommended when possible. Stopping home isolation precautions: If possible, consult your doctor before stopping home isolation precautions. According to the CDC, you can discontinue home isolation precautions when you have met both of these criteria: Your fever and respiratory symptoms have been gone for 24 yaa (more content not included)... Normal [facility] INFLUENZA A/B, COVID 2019 PC R,SYMPTOMATICon 09-10-2021 INFLUENZA A, PCR Not detected Normal Not Detected [facility] Comment on above: Result Comment: Resp iratory virus testing is performed routinely by PCR for Influenza A/B and RSV. If Influenza and RSV PCR are negative, testing for parainfluenza 1,2,3 viruses and adenovirus is routinely performed for oncology inpatients and intensive care unit patients at [facility] and is available on request on other patients by calling Laboratory Client Services at [phone]. Not Detected results do not preclude Influenza A/B or RSV infections since the adequacy of sample collection or low viral burden may impact the clinical sensitivity of this test method. Performed By: #### C OINP #### [facility] [address] [place] [address] INFLUENZA B, PCR Not detected Normal Not Detected [facility] Comment on above: Result Comment: Resp iratory virus testing is performed routinely by PCR for Influenza A/B and RSV. If Influenza and RSV PCR are negative, testing for parainfluenza 1,2,3 viruses and adenovirus is routinely performed for oncology inpatients and intensive care unit patients at [facility] and is available on request on other patients by calling Laboratory Client Services at [phone] Not Detected results do not preclude Influenza A/B or RSV infections since the adequacy of sample collection or low viral burden may impact the clinical sensitivity of this test method. . The TaqManTM SARS-CoV-2, Flu A, Flu B Multiplex Assay is a multiplex, real-time RT-PCR assay for the detection of RNA from the SARS-CoV-2, Influenza A, and Influenza B viruses. A negative result does not preclude the possibility of SARS-CoV-2, Influenza A, or Influenza B infections, and should not be used as the sole basis for patient management decision as a negative result may be caused by very low levels of infection, collection errors, or testing errors. . This test was developed and its performance characteristics were determined by the Microbiology Laboratory, Department of Pathology, [facility], [place], [place]. It has not been cleared or approved by the US Food and Drug Administration; however, FDA clearance or approval is not currently required for clinical use. This test should not be regarded as investigational or for research purposes. Performed By: #### C OINP #### [place] [address] SARS-CoV-2 (COVID-19) RNA TOMAS+probe Ql (Unsp spec) Not detected Normal Not Detected [facility] Comment on above: Result Comment: . This assay is designed to detect the N, ORF1ab and/or S genes of SARS-CoV-2 via nucleic acid amplification. A Negative (NOT DETECTED) result does not preclude 2019-nCoV infection since the adequacy of sample collection and/or low viral burden may result in presence of viral nucleic acids below the clinical sensitivity of this test method. Negative (NOT DETECTED) result should not be used as the sole basis for treatment or other patient management decisions. Rather negative results should be combined with clinical observations, patient history, and epidemiological information to make patient management decisions. Fact sheet for providers: https://www.fda.gov/media/151406/download Fact sheet for patients: https://www.fda.gov/media/997345/download This test has received FDA Emergency Use Authorization (EUA) and has been verified by [facility] ([facility]). This test is only authorized for the duration of time that circumstances exist to justify the authorization of the emergency use of in vitro diagnostic tests for the detection of SARS-CoV-2 virus and/or diagnosis of COVID-19 infection under section 564(b)(1) of the Act, 21 U.S.C. 360bbb-3(b)(1), unless the authorization is terminated or revoked sooner. [facility] is certified under CLIA-88 as qualified to perform high complexity testing. Testing is performed in the [facility] laboratories located at [address] [place] [address]. Performed By: #### C OINP #### [facility] [address] [place] [address] INFLUENZA A/B, COVID 2019 PC R,SYMPTOMATICon 09-09-2021 DATE OF SYMPTOM ONSET [[id number]]? [id number] Normal [facility] Comment on above: Performed By: #### C OINP #### [facility] [address] [place] [address] Lab Specimen Source Nasal, Nasopharyngeal Normal [facility] Comment on above: Performed By: #### C OINP #### [facility] [address] [place] [address] Date and time of symptom onset [id number] [facility] Internal Medicine Work Phone: INFLUENZA A/B, COVID 2019 PCR,SYMPTOMATIC Not detected See Below [facility] Internal Medicine Work Phone: Comment on above: Reference Range: Not Detected.This assay is designed to detect the N, ORF1ab and/or S genes of SARS-CoV-2 via nucleic acid amplification. A Negative (NOT DETECTED) result does not preclude 2019-nCoV infection since the adequacy of sample collection and/or low viral burden may result in presence of viral nucleic acids below the clinical sensitivity of this test method. Negative (NOT DETECTED) result should not be used as the sole basis for treatment or other patient management decisions. Rather negative results should be combined with clinical observations, patient history, and epidemiological information to make patient management decisions.Fact sheet for providers: https://www.fda.gov/media/268585/downloadFact sheet for patients: https://www.fda.gov/media/014426/downloadThis test has received FDA Emergency Use Authorization (EUA) and has been verified by [facility] ([facility]). This test is only authorized for the duration of time that circumstances exist to justify the authorization of the emergency use of in vitro diagnostic tests for the detection of SARS-CoV-2 virus and/or diagnosis of COVID-19 infection under section 564(b)(1) of the Act, 21 U.S.C. 360bbb-3(b)(1), unless the authorization is terminated or revoked sooner. [facility] is certified under CLIA-88 as qualified to perform high complexity testing. Testing is performed in the [facility] laboratories located at [address] [place], [place] [id number]. Reference Range: Not Detected Respiratory virus testing is performed routinely by PCR for Influenza A/B and RSV. If Influenza and RSV PCR are negative, testing for parainfluenza 1,2,3 viruses and adenovirus is routinely performed for oncology inpatients and intensive care unit patients at [facility] and is available on request on other patients by calling Laboratory Client Services at [phone] Not Detected results do not preclude Influenza A/B or RSV infections since the adequacy of sample collection or low viral burden may impact the clinical sensitivity of this test method..The TaqManTM SARS-CoV-2, Flu A, Flu B Multiplex Assay is a multiplex, real-time RT-PCR assay for the detection of RNA from the SARS-CoV-2, Influenza A, and Influenza B viruses. A negative result does not preclude the possibility of SARS-CoV-2, Influenza A, or Influenza B infections, and should not be used as the sole basis for patient management decision as a negative result may be caused by very low levels of infection, collection errors, or testing errors. .This test was developed and its performance characteristics were determined by the Microbiology Laboratory, Department of Pathology, [facility], [place], [place]. It has not been cleared or approved by the US Food and Drug Administration; however, FDA clearance or approval is not currently required for clinical use. This test should not be regarded as investigational or for research purposes. SOURCE: Nasal, Nasop haryngealReference Range: Not Detected Respiratory virus testing is performed routinely by PCR for Influenza A/B and RSV. If Influenza and RSV PCR are negative, testing for parainfluenza 1,2,3 viruses and adenovirus is routinely performed for oncology inpatients and intensive care unit patients at [facility] and is available on request on other patients by calling Laboratory Client Services at [phone]. Not Detected results do not preclude Influenza A/B or RSV infections since the adequacy of sample collection or low viral burden may impact the clinical sensitivity of this test method. Office Visit (Internal Medic ine)on 09-08-2021 Follow-up visit Diagnoses/Problems Assessed COPD exacerbation (491.21) (J44.1) Orders COPD exacerbation Start: Azithromycin 250 MG Oral Tablet (Zithromax Z-Kong); TAKE 2 TABLETS ON DAY 1 THEN TAKE 1 TABLET A DAY FOR 4 DAYS Rx By: Gregg Miller; Dispense: 0 Days ; #:1 X 6 Tablet Pack; Refill: 0;For: COPD exacerbation; ALY = N; Sent To: [facility] Start: predniSONE 10 MG Oral Tablet; TAKE 1 TABLET 3 TIMES DAILY Rx By: Gregg Miller; Dispense: 5 Days ; #:15 Tablet; Refill: 0;For: COPD exacerbation; ALY = N; Sent To: [facility] Patient Discussion/Summary F/U 1 WEEK COVID , FLU A,B TEST Provider Impressions PT. WAS INSTRUCTED TO INCREASE FLUID INTAKE ,TAKE TYLENOL 650 MG PO Q6H/PRN FOR PAIN OR FEVER AND TAKE ROBITUSSIN OTC 2 TSP Q 6H/PRN FOR COUGH. SELF Q. MDM 1) COMPLEXITY: ACUTE CONDITION WITH SYSTEMIC SYMPTOMS 2)DATA: TESTS INTERPRETED AND OR ORDERED, PERSONALLY TOOK THE HISTORY OR RECORDS REVIEWED 3)RISK : MODERATE RISK DUE TO THE NATURE OF THE DISEASE/COMORBIDITIES, MEDICATIONS ORDERED, OR PROCEDURE REFERRAL OR SURGICAL REFERRAL, Chief Complaint An interactive audio and video telecommunication system which permits real time communications between the patient (at the originating site) and provider (at the distant site) was utilized to provide this telehealth service. Verbal consent was requested and obtained from TISH BUTLER on this date, 09/08/2021 10:00 AM , for a telehealth visit. VIRTUAL VISIT - C/O ILLNESS SINCE TUESDAY - PRODUCTIVE COUGH, SOB, JUNIOR, RUNNY NOSE. NO KNOWN FEVER. OTC ROBITUSSIN AND LOZENGES TX. History of Present IllnessPT C/O PRODUCTIVE COUGH SINUS CONGESTION MILD SOB FOR 4 DAYS SEVERITY: MODERATE CHARACTERISTIC: ACUTE EXACERBATION FACTOR: NONE RELIEVING FACTOR: NONE ASSOCIATED SYMPTOMS: HAD CHILLS BUT NO FEVER, NO LOSS OF TASTE OR SMELL PRIOR TX: ROBITUSSIN TYLENOL COUGH DROPS Review of Systems ALL OTHER SYSTEMS HAVE BEEN REVIEWED AND ARE NEGATIVE Active Problems Problems Allergic rhinitis (477.9) (J30.9) Anemia of chronic disorder (285.29) (D63.8) Arthritis of right acromioclavicular joint (716.91) (M19.011) Atrial fibrillation (427.31) (I48.91) Benign essential hypertension (401.1) (I10) Bilateral sacroiliitis (720.2) (M46.1) Body mass index (BMI) of 40.0 to 44.9 in adult (V85.41) (Z68.41) Breast cancer screening (V76.10) (Z12.39) Cellulitis of labia majora (616.10) (N76.2) Cervical neuritis (723.4) (M54.12) Cervical os stenosis (622.4) (N88.2) Chills (780.64) (R68.83) Chronic asthmatic bronchitis with acute exacerbation (466.0,493.92) (J44.1) Chronic low back pain (724.2,338.29) (M54.50,G89.29) Chronic lumbar radiculopathy (724.4) (M54.16) Chronic obstructive lung disease (496) (J44.9) Chronic respiratory failure (518.83) (J96.10) COPD exacerbation (491.21) (J44.1) Cor pulmonale (416.9) (I27.81) Cough (786.2) (R05.9) Dependence on supplemental oxygen (V46.2) (Z99.81) Depression (311) (F32.A) Diabetes (250.00) (E11.9) Diabetic neuropathy (250.60,357.2) (E11.40) Dizziness (780.4) (R42) 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) Dysphagia (787.20) (R13.10) Edema of lower extremity (782.3) (R60.0) Essential tremor (333.1) (G25.0) Facet arthropathy, lumbar (721.3) (M47.816) Falls (E888.9) (W19.XXXA) Falls, subsequent encounter (V58.89,E888.9) (W19.XXXD) Fibromyalgia (729.1) (M79.7) Fibromyositis (729.1) (M79.7) Fissure in skin (709.8) (R23.4) 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) History of colonic polyps (V12.72) (Z86.010) Hypercholesterolemia (272.0) (E78.00) Hypokalemia (276.8) (E87.6) Hypoxemia (799.02) (R09.02) Morbid obesity (278.01) (E66.01) Morbid obesity with BMI of 40.0-44.9, adult (278.01,V85.41) (E66.01,Z68.41) Myalgia (729.1) (M79.10) Obstructive sleep apnea syndrome in adult (327.23) (G47.33) Osteoarthritis (715.90) (M19.90) Osteoporosis screening (V82.81) (Z13.820) Paroxysmal atrial fibrillation with RVR (427.31) (I48.0) STABLE Pleural effusion (511.9) (J90) Primary hypertriglyceridemia (272.1) (E78.1) Rib pain on right side (786.50) (R07.81) Right shoulder pain, unspecified chronicity (719.41) (M25.511) Screen for colon cancer (V76.51) (Z12.11) SOB (shortness of breath) on exertion (786.05) (R06.02) Statin intolerance (995.27) (Z78.9) Thrush (112.0) (B37.0) Tremor (781.0) (R25.1) Trochanteric bursitis of right hip (726.5) (M70.61) Type 2 diabetes mellitus with peripheral neuropathy (250.60,357.2) (E11.42) Vitamin B12 deficiency (266.2) (E53.8) Past Medical History Problems History of Acute respiratory infection (519.8) (J22) H/O bone density study (V15.89) (Z92.89) IMPRESSION: Normal density of the forearm with decrease by 5.7% since 09/13/2013. Normal density of the lumbar spine and left hip. No prior studies of the hip or lumbar spine.. History of multiple allergies (V49.89) (Z91.89) History of Rheu (more content not included)... Normal [facility] Tobacco Screening.on 021 Fall risk assessment a) No falls within the last year [facility] Work Phone: Tobacco use status [facility] b) No [facility] Work Phone: Radiologyon 08-28-2021 US Chest Normal [facility] Work Phone: Office Visit (Internal Medic ine)on 08-25-2021 Follow-up visit Diagnoses/Problems Assessed Morbid obesity with BMI of 40.0-44.9, adult (278.01,V85.41) (E66.01,Z68.41) Chronic obstructive lung disease (496) (J44.9) Chronic respiratory failure (518.83) (J96.10) Pleural effusion (511.9) (J90) Diabetes (250.00) (E11.9) Orders Benign essential hypertension Renew: Lisinopril 5 MG Oral Tablet; Take 1 tablet daily Rx By: Gregg Miller; Dispense: 90 Days ; #:90 Tablet; Refill: 3;For: Benign essential hypertension; ALY = N; Sent To: [facility]; Last Updated By: Jacqui Huang; 08/25/2021 12:46:40 PM Diabetic neuropathy Renew: DULoxetine HCl - 20 MG Oral Capsule Delayed Release Particles; TAKE 1 CAPSULE Daily Rx By: Gregg Miller; Dispense: 0 Days ; #:90 Capsule; Refill: 3;For: Diabetic neuropathy; ALY = N; Sent To: [facility]; Last Updated By: Jacqui Huang; 08/25/2021 12:46:40 PM Patient Discussion/Summary US GUIDED THORACENTESIS F/U 3 WEEKS POSTPONE COLONOSCOPY X 1 MO Provider Impressions HAS BEEN ON LANTUS 38 UNITS DAILY AND HAS BEEN TAKING THE NOVOLG COVERAGE 1800 RON ADA HGA1C GOAL LESS THAN 7 LOSE WT EXERCISE DAILY MONITOR BP GOAL BP LOWER THAN 130/80 LOW SALT EXERCISE DAILY MDM 1) COMPLEXITY: 1 OR MORE CHRONIC CONDITION WITH EXACERBATION, OR PROGRESSION OR SIDE EFFECT OF TREATMENT ADDRESSED 2)DATA: TESTS INTERPRETED AND OR ORDERED, TOOK INDEPENDENT HISTORY OR RECORDS REVIEWED 3)RISK: MODERATE RISK DUE TO NATURE OF MEDICAL CONDITIONS/COMORBIDITY OR MEDICATIONS ORDERED OR SURGICAL OR PROCEDURE REFERRAL, . Chief Complaint 1 WK F/U WITH CXR STILL HAS COUGH AND CONGESTION WITH LOW GLUCOSE History of Present IllnessHERE FOR F/U AFTER CXR STILL HAS SOME RESIDUAL COUGH AND CONGESTION A FEW LOW BS Review of Systems Constitutional: not feeling poorly, no fever, no recent weight gain and no recent weight loss. Eyes: no blurred vision and no diplopia. ENT: no hearing loss, no tinnitus, no earache, no sore throat, no hoarseness and no swollen glands in the neck. Cardiovascular: no chest pain, no tightness or heavy pressure, no shortness of breath, no palpitations and no lower extremity edema. Respiratory: cough and shortness of breath during exertion, but not coughing up sputum and no wheezing that is consistent with asthma. Gastrointestinal: no change in bowel habits, no diarrhea, no constipation, no bloody stools, no nausea, no vomiting, no abdominal pain, no signs and symptoms of ulcer disease, no bernard colored stools and no intolerance to fatty foods. Genitourinary: no urinary frequency, no dysuria, no burning sensation during urination and no hematuria. Musculoskeletal: no arthralgias, no joint stiffness, no muscle weakness, no back pain and no difficulty walking. Skin: no rashes, no change in skin color and pigmentation, no skin lesions and no skin lumps. Neurological: no headaches, no dizziness, no seizures, no tingling, no numbness, no signs and symptoms of stroke and no limb weakness. Psychiatric: no confusion, no memory lapses or loss, no depression and no sleep disturbances. Endocrine: no goiter, no thyroid disorder, no diabetes mellitus, no excessive thirst, no dry skin, no cold intolerance, no heat intolerance and no increased urinary frequency. Hematologic/Lymphatic: is not slow to heal, does not bleed easily, does not bruise easily, no thrombophlebitis, no anemia and no history of blood transfusion. All other systems have been reviewed and are negative for complaint. Active Problems Problems Allergic rhinitis (477.9) (J30.9) Anemia of chronic disorder (285.29) (D63.8) Arthritis of right acromioclavicular joint (716.91) (M19.011) Atrial fibrillation (427.31) (I48.91) Benign essential hypertension (401.1) (I10) Bilateral sacroiliitis (720.2) (M46.1) Body mass index (BMI) of 40.0 to 44.9 in adult (V85.41) (Z68.41) Breast cancer screening (V76.10) (Z12.39) Cellulitis of labia majora (616.10) (N76.2) Cervical neuritis (723.4) (M54.12) Cervical os stenosis (622.4) (N88.2) Chills (780.64) (R68.83) Chronic asthmatic bronchitis with acute exacerbation (466.0,493.92) (J44.1) Chronic low back pain (724.2,338.29) (M54.50,G89.29) Chronic lumbar radiculopathy (724.4) (M54.16) Chronic obstructive lung disease (496) (J44.9) Chronic respiratory failure (518.83) (J96.10) COPD exacerbation (491.21) (J44.1) Cor pulmonale (416.9) (I27.81) Cough (786.2) (R05.9) Dependence on supplemental oxygen (V46.2) (Z99.81) Depression (311) (F32.A) Diabetes (250.00) (E11.9) Diabetic neuropathy (250.60,357.2) (E11.40) Dizziness (780.4) (R42) 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 Normal [facility] Tobacco Screening.on 021 Fall risk assessment a) No falls within the last year [facility] Work Phone: Tobacco use status [facility] b) No [facility] Work Phone: Radiologyon 08-22-2021 XR Chest 2 Views Normal [facility] Work Phone: XR Chest 2 Views Please click on the link to view the study images [facility] Work Phone: Office Visit (Internal Medic ine)on 08-18-2021 Follow-up visit Diagnoses/Problems Assessed COPD exacerbation (491.21) (J44.1) Orders COPD exacerbation Start: Azithromycin 250 MG Oral Tablet (Zithromax Z-Kong); TAKE 2 TABLETS ON DAY 1 THEN TAKE 1 TABLET A DAY FOR 4 DAYS Rx By: Gregg Miller; Dispense: 0 Days ; #:1 X 6 Tablet Pack; Refill: 0;For: COPD exacerbation; ALY = N; Sent To: [id number]; Last Updated By: Sociocast; 08/18/2021 2:38:48 PM Start: predniSONE 10 MG Oral Tablet; TAKE 1 TABLET 3 TIMES DAILY Rx By: Gregg Miller; Dispense: 3 Days ; #:9 Tablet; Refill: 0;For: COPD exacerbation; ALY = N; Sent To: [id number]; Last Updated By: Sociocast; 08/18/2021 2:38:47 PM Patient Discussion/Summary F/U 1 WEEK WITH CXR IN OFFICE Provider Impressions MDM 1) COMPLEXITY: 1 OR MORE CHRONIC CONDITION WITH EXACERBATION, OR PROGRESSION OR SIDE EFFECT OF TREATMENT ADDRESSED 2)DATA: TESTS INTERPRETED AND OR ORDERED, TOOK INDEPENDENT HISTORY OR RECORDS REVIEWED 3)RISK: MODERATE RISK DUE TO NATURE OF MEDICAL CONDITIONS/COMORBIDITY OR MEDICATIONS ORDERED OR SURGICAL OR PROCEDURE REFERRAL, . Chief Complaint An interactive audio and video telecommunication system which permits real time communications between the patient (at the originating site) and provider (at the distant site) was utilized to provide this telehealth service. Verbal consent was requested and obtained from TISH BUTLER on this date, 08/18/2021 04:45 PM , for a telehealth visit. VIRTUAL; 1 WK F/U ILLNESS; NEG FOR COVID; C/O COUGH AND CONGESTION REMAIN-SHE DID HAVE A FALL AT HOME AND TROUBLE GETTING UP-NO KNOWN INJURY History of Present IllnessF/U AFTER COVID TEST C/O SOB WITH EXERTION, MODERATE IN INTENSITY GOING ON ABOUT 2 WEEKS OFF AND ON JUNIOR ASSOCIATED FACTOR FINISHED THE ANX. AND FINISHING TH PREDNISONE EXERTION MAKES IT WORSE REST MAKES IT BETTER Review of Systems Constitutional: feeling tired, but not feeling poorly, no fever, no recent weight gain and no recent weight loss. Eyes: no blurred vision and no diplopia. ENT: no hearing loss, no tinnitus, no earache, no sore throat, no hoarseness and no swollen glands in the neck. Cardiovascular: no chest pain, no tightness or heavy pressure, no shortness of breath, no palpitations and no lower extremity edema. Respiratory: cough, wheezing that is consistent with asthma and shortness of breath during exertion, but not coughing up sputum. Gastrointestinal: no change in bowel habits, no diarrhea, no constipation, no bloody stools, no nausea, no vomiting, no abdominal pain, no signs and symptoms of ulcer disease, no bernard colored stools and no intolerance to fatty foods. Genitourinary: no urinary frequency, no dysuria, no burning sensation during urination and no hematuria. Musculoskeletal: no arthralgias, no joint stiffness, no muscle weakness, no back pain and no difficulty walking. Skin: no rashes, no change in skin color and pigmentation, no skin lesions and no skin lumps. Neurological: no headaches, no dizziness, no seizures, no tingling, no numbness, no signs and symptoms of stroke and no limb weakness. Psychiatric: no confusion, no memory lapses or loss, no depression and no sleep disturbances. Endocrine: no goiter, no thyroid disorder, no diabetes mellitus, no excessive thirst, no dry skin, no cold intolerance, no heat intolerance and no increased urinary frequency. Hematologic/Lymphatic: is not slow to heal, does not bleed easily, does not bruise easily, no thrombophlebitis, no anemia and no history of blood transfusion. All other systems have been reviewed and are negative for complaint. Active Problems Problems Allergic rhinitis (477.9) (J30.9) Anemia of chronic disorder (285.29) (D63.8) Arthritis of right acromioclavicular joint (716.91) (M19.011) Atrial fibrillation (427.31) (I48.91) Benign essential hypertension (401.1) (I10) Bilateral sacroiliitis (720.2) (M46.1) Body mass index (BMI) of 40.0 to 44.9 in adult (V85.41) (Z68.41) Breast cancer screening (V76.10) (Z12.39) Cellulitis of labia majora (616.10) (N76.2) Cervical neuritis (723.4) (M54.12) Cervical os stenosis (622.4) (N88.2) Chills (780.64) (R68.83) Chronic asthmatic bronchitis with acute exacerbation (466.0,493.92) (J44.1) Chronic low back pain (724.2,338.29) (M54.50,G89.29) Chronic lumbar radiculopathy (724.4) (M54.16) Chronic obstructive lung disease (496) (J44.9) Chronic respiratory failure (518.83) (J96.10) COPD exacerbation (491.21) (J44.1) Cor pulmonale (416.9) (I27.81) Cough (786.2) (R05.9) Dependence on supplemental oxygen (V46.2) (Z99.81) Depression (311) (F32.A) Diabetes (250.00) (E11.9) Diabetic neuropathy (250.60,357.2) (E11.40) Dizziness (780.4) (R42) 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 Normal [facility] Tobacco Screening.on 021 Fall risk assessment b) One or more fall s in the last year [facility] Work Phone: Tobacco use status [facility] b) No [facility] Work Phone: CORONAVIRUS 2019 BY PCRon SARS-CoV-2 (COVID-19) RNA TOMAS+probe Ql (Unsp spec) Not detected Normal Not Detected [facility] Comment on above: Result Comment: . This assay is designed to detect the N, ORF1ab and/or S genes of SARS-CoV-2 via nucleic acid amplification. A Negative (NOT DETECTED) result does not preclude 2019-nCoV infection since the adequacy of sample collection and/or low viral burden may result in presence of viral nucleic acids below the clinical sensitivity of this test method. Negative (NOT DETECTED) result should not be used as the sole basis for treatment or other patient management decisions. Rather negative results should be combined with clinical observations, patient history, and epidemiological information to make patient management decisions. Fact sheet for providers: https://www.fda.gov/media/863526/download Fact sheet for patients: https://www.fda.gov/media/270471/download This test has received FDA Emergency Use Authorization (EUA) and has been verified by [facility] ([facility]). This test is only authorized for the duration of time that circumstances exist to justify the authorization of the emergency use of in vitro diagnostic tests for the detection of SARS-CoV-2 virus and/or diagnosis of COVID-19 infection under section 564(b)(1) of the Act, 21 U.S.C. 360bbb-3(b)(1), unless the authorization is terminated or revoked sooner. [facility] is certified under CLIA-88 as qualified to perform high complexity testing. Testing is performed in the [facility] laboratories located at [address] [place] [address]. Performed By: #### C OV19 #### [place] [address] Covid 19 Resultson SARS-CoV-2 (COVID-19) RNA TOMAS+probe Ql (Unsp spec) NEGATIVE COVID-19 Test Coronaviruses are common world-wide and are the cause of many common colds. SARS-COV2 is a new coronavirus that began circulating worldwide in 2019 so we are calling it COVID-19. It has been estimated that four out of five patients with COVID-19 will recover at home without the need for medical attention. Symptoms of COVID-19 may include cough, fever, shortness of breath, loss of taste or smell and other flu-like symptoms including chills, sore muscles, sore throat, and headache. Severe illness is more common in older people and people with other health problems such as high blood pressure, obesity, and immune system problems. If the test is positive, you have COVID-19. You will be contacted by the ordering physicians office and instructed to remain on home isolation, in accordance with CDC guidelines. You may also be contacted by the [facility] to see if any of your close contacts may have been exposed to the virus and need to quarantine. If the test is negative, you likely do not have COVID-19 at this time, but you still may have a different illness that can spread to other people (like Influenza, or the Flu) and could still be at risk for getting COVID-19. We recommend that you stay away from other people to limit the spread of illness until your symptoms are improving and you are fever-free for 24 hours without the use of fever lowering medications such as acetaminophen or ibuprofen. No test is 100% accurate so if you are still concerned you may have COVID-19, talk to your doctor about the need to continue to stay away from others. Medicines Unless your provider told you not to use the following: Acetaminophen (Tylenol and others) is generally safe. Anti-inflammatory medications, such as Ibuprofen (Advil or Motrin) or Naproxen (Aleve) can also be used. Dxdu-kue-tmfnojt cough and cold medicines can be used according to the instructions on the package. Some tsyz-xtl-dhccpgo medicines also contain acetaminophen. Make sure you are not taking more than your recommended dose. For those not hospitalized, there is no specific treatment available for this illness. Antibiotics do not treat Coronaviruses. Follow-Up Follow up with your doctor by scheduling a virtual visit or consider follow-up at one of our urgent care fever clinics. If you are having difficulty breathing, or are very weak and having difficulty standing, this is a medical emergency. Call 911 or have someone take you to the nearest emergency room immediately. If possible, wear a facemask. Additional guidance from the CDC for patients who tested POSITIVE for COVID-19 How to isolate: Isolate yourself in a specific room at home and limit your contact with others. Use a separate bathroom from other members of the household, when possible. Leave home only to get essential medical care. Do not go to work, school or public areas. Avoid using public transportation, ride-sharing, or taxis. Restrict contact with pets and other animals. If you must care for your pet or be around animals while you are sick, wash your hands before and after your interaction and wear a facemask. Make sure that shared spaces in the home have good airflow, such as by an air conditioner or an opened window, weather permitting. Personal Hygiene Procedures: Wear a face mask when in the same room as other people or pets. If a face mask interferes with your breathing, others should wear a mask when sharing space with you. Frequent hand-washing: wash your hands with soap and water for at least 20 seconds. If soap and water are not available, use alcohol-based hand ruffling machine operator. Avoid touching your eyes, nose, and mouth with unwashed hands. Household Hygiene Procedures: Avoid sharing personal household items such as dishes, glassware, cups, eating utensils, towels or bedding with other people or pets in your home. After use, these items should be washed with soap and hot water. Disinfect all high-touch surfaces every day with antibacterial cleaning solutions such as Lysol wipes, bleach, cleansers, etc. High-touch surfaces include tabletops, doorknobs, bathroom fixtures, toilets, phones, keyboards, tablets and bedside tables. Immediately clean any surfaces that may have blood, poop or body fluids on them, using antibacterial cleaning solutions such as Lysol wipes, bleach, cleansers, etc. If clothing or bedding come into contact with blood, poop or body fluids, they should be washed immediately. Follow the directions on the laundry detergent and clothing labels but hot water is recommended when possible. Stopping home isolation precautions: If possible, consult your doctor before stopping home isolation precautions. According to the CDC, you can discontinue home isolation precautions when you have met both of these criteria: Your fever and respiratory symptoms have been gone for 24 yaa (more content not included)... Normal [facility] CORONAVIRUS 2019 BY PCRon Lab Specimen Source Nasal, Nasopharyngeal Normal [facility] Comment on above: Performed By: #### C OV19 #### [facility] [address] [place] [address] DATE OF SYMPTOM ONSET [[id number]]? [id number] Normal [facility] Comment on above: Performed By: #### C OV19 #### [facility] [address] [place] [address] Coronavirus 2019 RNA by PCR, Symptomaticon 08-12-2021 Date and time of symptom onset [id number] 1 [facility] Work Phone: Coronavirus 2019 RNA by PCR, Symptomatic Not detected Normal See Below [facility] Work Phone: Comment on above: SOURCE: Nasal, Nasop haryngealReference Range: Not Detected.This assay is designed to detect the N, ORF1ab and/or S genes of SARS-CoV-2 via nucleic acid amplification. A Negative (NOT DETECTED) result does not preclude 2019-nCoV infection since the adequacy of sample collection and/or low viral burden may result in presence of viral nucleic acids below the clinical sensitivity of this test method. Negative (NOT DETECTED) result should not be used as the sole basis for treatment or other patient management decisions. Rather negative results should be combined with clinical observations, patient history, and epidemiological information to make patient management decisions.Fact sheet for providers: https://www.fda.gov/media/415211/downloadFact sheet for patients: https://www.fda.gov/media/933274/downloadThis test has received FDA Emergency Use Authorization (EUA) and has been verified by [facility] ([facility]). This test is only authorized for the duration of time that circumstances exist to justify the authorization of the emergency use of in vitro diagnostic tests for the detection of SARS-CoV-2 virus and/or diagnosis of COVID-19 infection under section 564(b)(1) of the Act, 21 U.S.C. 360bbb-3(b)(1), unless the authorization is terminated or revoked sooner. [facility] is certified under CLIA-88 as qualified to perform high complexity testing. Testing is performed in the [facility] laboratories located at [address] [place] [address]. Office Visit (Internal Medic ine)on 08-11-2021 Follow-up visit Diagnoses/Problems Assessed COPD exacerbation (491.21) (J44.1) Chills (780.64) (R68.83) Cough (786.2) (R05.9) SOB (shortness of breath) on exertion (786.05) (R06.02) Orders Chills, Cough, SOB (shortness of breath) on exertion Coronavirus 2019 RNA by PCR, Symptomatic; Status:Active - Retrospective Authorization; Requested for:11Aug2021; Perform:Lab Services - Lab To Draw (Non-Blood Test); Due:09Nov2021; Last Updated By:Mita Schwab; 08/11/2021 3:03:12 PM;Ordered; For:Chills, Cough, SOB (shortness of breath) on exertion; Ordered By:Gregg Miller; RESIDENT IN CONGREGATE CARE SETTING? : No ICU? : No HOSPITALIZED (OR PLANNED TO BE ADMITTED)? : No EMPLOYED IN HEALTHCARE? : No FIRST COVID NASAL SWAB TEST? : Unknown Symptom 1 : Cough DATE OF SYMPTOM ONSET? : 09Aug2021 IS THE PATIENT SYMPTOMATIC DEFINED BY THE CDC (FEVER>100, NEW WORSENING COUGH OR SHORTNESS OF BREATH, NEW LOSS OF TASTE OR SMELL, SORE THROAT, DIARRHEA, BODY ACHES/MALAISE, HEADACHE, NAUSEA/VOMITING, OR RUNNY NOSE/CONGESTION)? : Yes COPD exacerbation Start: Azithromycin 250 MG Oral Tablet (Zithromax Z-Kong); TAKE 2 TABLETS ON DAY 1 THEN TAKE 1 TABLET A DAY FOR 4 DAYS Rx By: Gregg Miller; Dispense: 0 Days ; #:1 X 6 Tablet Pack; Refill: 0;For: COPD exacerbation; ALY = N; Sent To: [id number]; Last Updated By: [employer]; 08/11/2021 2:35:32 PM Start: predniSONE 10 MG Oral Tablet; TAKE 1 TABLET 3 TIMES DAILY Rx By: Gregg Miller; Dispense: 5 Days ; #:15 Tablet; Refill: 0;For: COPD exacerbation; ALY = N; Sent To: [facility] #[id number]; Last Updated By: System, [employer]; 08/11/2021 2:35:32 PM Patient Discussion/Summary F/U 1 WEEK COVID TEST Provider Impressions PT. WAS INSTRUCTED TO INCREASE FLUID INTAKE ,TAKE TYLENOL 650 MG PO Q6H/PRN FOR PAIN OR FEVER AND TAKE ROBITUSSIN OTC 2 TSP Q 6H/PRN FOR COUGH. SELF Q. Chief Complaint A telephone visit (audio only) between the patient (at the originating site) and the provider (at the distant site) was utilized to provide this telehealth service. Verbal consent was requested and obtained from TISH BUTLER on this date, 08/11/2021 03:15 PM , for a telehealth visit. CO PRODUCTIVE COUGH SINCE TUESDAY SORE THROAT ON/OFF History of Present IllnessCOUGH , CHILLS, SOB, X 1WEEK NO LOSS OF TASTE OR SMELL NEBULIZER ROBITUSSIN MUCINEX FULLY VACCINATED FOR COVID Active Problems Problems Allergic rhinitis (477.9) (J30.9) Anemia of chronic disorder (285.29) (D63.8) Arthritis of right acromioclavicular joint (716.91) (M19.011) Atrial fibrillation (427.31) (I48.91) Benign essential hypertension (401.1) (I10) Bilateral sacroiliitis (720.2) (M46.1) Body mass index (BMI) of 40.0 to 44.9 in adult (V85.41) (Z68.41) Breast cancer screening (V76.10) (Z12.39) Cellulitis of labia majora (616.10) (N76.2) Cervical neuritis (723.4) (M54.12) Cervical os stenosis (622.4) (N88.2) Chronic asthmatic bronchitis with acute exacerbation (466.0,493.92) (J44.1) Chronic low back pain (724.2,338.29) (M54.50,G89.29) Chronic lumbar radiculopathy (724.4) (M54.16) Chronic obstructive lung disease (496) (J44.9) Chronic respiratory failure (518.83) (J96.10) Cor pulmonale (416.9) (I27.81) Cough (786.2) (R05.9) Dependence on supplemental oxygen (V46.2) (Z99.81) Depression (311) (F32.A) Diabetes (250.00) (E11.9) Diabetic neuropathy (250.60,357.2) (E11.40) Dizziness (780.4) (R42) 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) Dysphagia (787.20) (R13.10) Edema of lower extremity (782.3) (R60.0) Essential tremor (333.1) (G25.0) Facet arthropathy, lumbar (721.3) (M47.816) Falls (E888.9) (W19.XXXA) Falls, subsequent encounter (V58.89,E888.9) (W19.XXXD) Fibromyalgia (729.1) (M79.7) Fibromyositis (729.1) (M79.7) Fissure in skin (709.8) (R23.4) 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) History of colonic polyps (V12.72) (Z86.010) Hypercholesterolemia (272.0) (E78.00) Hypokalemia (276.8) (E87.6) Hypoxemia (799.02) (R09.02) Morbid obesity (278.01) (E66.01) Myalgia (729.1) (M79.10) Obstructive sleep apnea syndrome in adult (327.23) (G47.33) Osteoarthritis (715.90) (M19.90) Osteoporosis screening (V82.81) (Z13.820) Paroxysmal atrial fibrillation with RVR (427.31) (I48.0) STABLE Primary hypertriglyceridemia (272.1) (E78.1) Rib pain on right side (786.50) (R07.81) Right shoulder pain, unspecified chronicity (719.41) (M25.511) Screen for colon cancer (V76.51) (Z12.11) Statin intolerance (995.27) (Z78.9) Thrush (112.0) (B37.0) Tremor (781.0) (R25.1) Trochanteric bursitis of right hip (726.5) (M70.61) Type 2 diabetes mellitus with peripheral neuropathy (250.60,357.2) (E11.42) Vitamin B12 deficiency (266.2) (E53.8) Past Medical History Problems History of Acute respiratory infection (519.8) (J22) H/O bone density study (V15.89) (Z92.89) IMPRESSION: Normal density of the forearm with decrease by 5.7% sinc (more content not included)... Normal [facility] Medicare Annual Wellness Vis iton 08-03-2021 Medicare Annual Wellness Visit *Chief Complaint MEDICARE WELLNESS WITH LABS History of Present Illness The patient is being seen for the subsequent annual wellness visit. Past Medical, Surgical and Family History: reviewed and updated in chart. Medications and Supplements: Medications and supplements, including calcium and vitamins reviewed and updated in chart. No, the patient is not using opioids. Patient Self Assessment of Health Status: fair. Tobacco use: Non-User Alcohol use: Non-User Illicit drug use: Non-User Current diet: unhealthy diet. Exercise Frequency: the patient does not exercise. Depression/Suicide Screening: Patient has a current diagnosis of depression. Hearing Impairment: none. Cognitive Impairment: No cognitive impairment observed. Bathing: performs independently. Dressing: performs independently. Walking: performs independently. Managing Finances: needs assistance. Shopping: needs assistance. Managing Medications: performs independently. Housework / Basic Home Maintenance: needs assistance. Falls Risk Screening:. TISH has fallen in the last 6 months. Her fall resulted in the following injury: HURT HER LEFT THUMB. Care Plan High Risk: In addition to the low/moderate risk interventions: Low/Moderate Risk: Regular physical activity such as walking, water aerobics or dani chi to improve strength, balance, coordination and flexibility. Wear appropriate, sensible shoe wear. Remove fall hazards at home such as loose rugs, obstacles, use non-slip surface in bath or shower. Keep living space well lit. Use assistive devices such as cane or walker if recommended and at home use handrails on stairs, grab bars for shower or tub, raised toilet seat and seat in the shower or tub. Home safety risk factors: none. HERE FOR F/U NO COMPLAINT WELLNESS EXAM Review of Systems Constitutional: not feeling poorly, no fever, no recent weight gain and no recent weight loss. Eyes: no blurred vision and no diplopia. ENT: no hearing loss, no tinnitus, no earache, no sore throat, no hoarseness and no swollen glands in the neck. Cardiovascular: no chest pain, no tightness or heavy pressure, no shortness of breath, no palpitations and no lower extremity edema. Respiratory: no cough, not coughing up sputum and no wheezing that is consistent with asthma. Gastrointestinal: no change in bowel habits, no diarrhea, no constipation, no bloody stools, no nausea, no vomiting, no abdominal pain, no signs and symptoms of ulcer disease, no bernard colored stools and no intolerance to fatty foods. Genitourinary: no urinary frequency, no dysuria, no burning sensation during urination and no hematuria. Musculoskeletal: no arthralgias, no joint stiffness, no muscle weakness, no back pain and no difficulty walking. Skin: no rashes, no change in skin color and pigmentation, no skin lesions and no skin lumps. Neurological: no headaches, no dizziness, no seizures, no tingling, no numbness, no signs and symptoms of stroke and no limb weakness. Psychiatric: no confusion, no memory lapses or loss, no depression and no sleep disturbances. Endocrine: no goiter, no thyroid disorder, no diabetes mellitus, no excessive thirst, no dry skin, no cold intolerance, no heat intolerance and no increased urinary frequency. Hematologic/Lymphatic: is not slow to heal, does not bleed easily, does not bruise easily, no thrombophlebitis, no anemia and no history of blood transfusion. All other systems have been reviewed and are negative for complaint. *Active Problems Allergic rhinitis (477.9) (J30.9) Anemia of chronic disorder (285.29) (D63.8) Arthritis of right acromioclavicular joint (716.91) (M19.011) Atrial fibrillation (427.31) (I48.91) Benign essential hypertension (401.1) (I10) Bilateral sacroiliitis (720.2) (M46.1) Body mass index (BMI) of 40.0 to 44.9 in adult (V85.41) (Z68.41) Breast cancer screening (V76.10) (Z12.39) Cellulitis of labia majora (616.10) (N76.2) Cervical neuritis (723.4) (M54.12) Cervical os stenosis (622.4) (N88.2) Chronic asthmatic bronchitis with acute exacerbation (466.0,493.92) (J44.1) Chronic low back pain (724.2,338.29) (M54.50,G89.29) Chronic lumbar radiculopathy (724.4) (M54.16) Chronic obstructive lung disease (496) (J44.9) Chronic respiratory failure (518.83) (J96.10) Cor pulmonale (416.9) (I27.81) Cough (786.2) (R05.9) Dependence on supplemental oxygen (V46.2) (Z99.81) Depression (311) (F32.A) Diabetes (250.00) (E11.9) Diabetic neuropathy (250.60,357.2) (E11.40) Dizziness (780.4) (R42) 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) Dysphagia (787.20) (R13.10) Edema of lower extremity (782.3) (R60.0) Essential tremor (333.1) (G25.0) Facet arthropathy, lumbar (721.3) (M47.816) Falls (E888.9) (W19.XXXA) Falls, subsequent encounter (V58.89,E888.9) (W19.XXXD) Fibromyalgia (729.1) (M79.7) Fibromyositis (729.1) (M79.7) Fissure in skin (709.8) (R23.4) Foraminal stenosis of cervical region ( (more content not included)... Normal [facility] Tobacco Screening.on 021 Fall risk assessment a) No falls within the last year [facility] Work Phone: Tobacco use status [facility] b) No [facility] Work Phone: Laboratory - Chemistry and C hemistry - challengeon 07-31-2021 Glucose [Mass/Vol] 105 mg/dL above high threshold 74 - 99 [facility] Work Phone: No Panel Informationon 07-31 Please click on the link to view the study images Normal [facility] Work Phone: Established Visit (Pain Medi cine)on 07-16-2021 Established Visit (Pain Medicine) Diagnoses/Problems History of Radiofrequency ablation Bilat L3-S1 RFA Chronic lumbar radiculopathy (724.4) (M54.16) Chronic low back pain (724.2,338.29) (M54.5,G89.29) Cervical neuritis (723.4) (M54.12) Facet arthropathy, lumbar (721.3) (M47.816) Fibromyalgia (729.1) (M79.7) Orders Chronic low back pain, Chronic lumbar radiculopathy MRI L Spine without Contrast; Status:Hold For - Scheduling; Requested for:16Jul2021; Radiologist to Determine Optimal Study : Y Does the patient have a Cochlear Implant, Pacemaker, Defibrilator, Pacing Wire, Brain Aneurysm Clip, Implanted Nerve or Bone Graft Simulator, Implanted Breast Tissue Saw Tailer, Glucose Monitor, or Neulasta Device? : No Is the patient or breast feeding? : No What are the patient's signs and symptoms? : lower back and leg pain Facet arthropathy, lumbar, Myalgia, Trochanteric bursitis of right hip Renew: Gabapentin 600 MG Oral Tablet; TAKE 2 TABLET 3 times daily Provider Impressions Patient is a 70-year-old female with a past medical history significant for lumbar spondylosis, myalgia, chronic pain, right shoulder pain/AC joint arthritis, sacroiliitis, fibromyalgia, myalgia, lumbar neuritis, and cervical neuritis. She continues on the baclofen 10 mg up to 3 times a day as needed. She also continues on gabapentin 1200 mg 3 times a day. She tolerates these well. No side effects. She takes them as prescribed. She is requesting a refill of the gabapentin. This will be sent to her pharmacy. She is continued to have neck pain with bilateral radiating arm pain. She underwent previous cervical epidural steroid injection over a year ago with relief. We reviewed the cervical MRI scan. I recommended C7-T1 epidural steroid injection for both diagnostic and therapeutic purposes. Procedure was discussed. Risk and benefits were discussed. Patient is agreeable. In regards to her lower back pain with bilateral radiating leg pain I discussed with patient different options. She underwent previous facet treatments without any significant long-term relief. I recommended to patient obtaining updated lumbar MRI for possible injection therapy versus surgical consultation depending on results. Patient is agreeable. She will follow up 2 weeks after the injection for reevaluation and we can review the MRI at that time. OARRS reviewed Chief Complaint Patient complains of lower back pain that radiates down her bilateral lower legs to her feet. Patient also complains of neck pain that radiates down her bilateral arms to her hands. Patient states she fell on her left thumb about 3 weeks ago and has had pain in it since. Patient also complains of left foot pain. Patient rates all of her pain a 9/10 today. Patient states her lower back is most bothersome at this time. She states she is really bothered by it when standing long periods like while cooking. Patient states she no longer gets relief from her low back pain when she sits down. BP screen 130/79 Adult Risk Screening Advance directives: Living Will: Living will on file. Healthcare POA: Health care proxy on file. Declaration of Mental Health Treatment: No mental health treatment on file. Single alcohol screening question: In the past year the patient has had 5 or more drinks (men) or 4 or more drinks (women)? 0 time(s). Reference Documentation See scanned note Review of Systems. History of Present Illness On a scale of 0 to 10, the patient rates the pain at 9. Pain Location: Low Back Pain. Pain Quality: Aching and Burning. Pain Radiation: Radiates down bilateral legs. Timing/Duration: Intermittent. Patient is a 71-year-old female with a past medical history significant for tremors, lumbar spondylosis, chronic pain, myalgia, lumbar neuritis, cervical neuritis, cervical stenosis, myalgia, fibromyalgia. and sacroiliitis. She also has a past medical history significant for COPD. She is on continuous oxygen. She presents today for a delayed follow-up. She has still been busy moving. She states that she is still not done. She can only do small amounts at a time because of all of her pain. She has neck pain with bilateral radiating arm pain as well as lower back pain with bilateral radiating leg pain. She rates the discomfort a 9/10. It is an aching and stabbing type pain. Is worse with any sort of physical activity or moving. She underwent bilateral L3-S1 facet RFA done on 08/13/20 and had 80% relief for maybe 3 months. She continues on gabapentin 1200 mg 3 times a day as well as baclofen 10 mg up to 3 times a she also uses medical marijuana. She tolerates these all fairly well. They do help her. Unfortunate, not quite enough. She wonders if there is something else she can do to try to get some relief. Review of Systems 13 systems all normal except noted in HP. Active Problems Allergic rhinitis (477.9) (J30.9) Anemia of chronic disorder (285.29) (D63.8) Arthritis of right acromioclavicular joint (716.91) (M19.011) Atrial fibri (more content not included)... [facility], Serumon 07-16-2021 Folate [Mass/Vol] 17.5 ng/mL >5.0 [facility] Work Phone: Comment on above: Low <3.4Borderline 3 .4-5.0Normal >5.0. Patients receiving more than 5 mg/day of biotin may have interference in test results. A sample should be taken no sooner than eight hours after previous dose. Contact the testing laboratory for additional information. Hemoglobin A1Con 07-16-2021 Glucose [Mass/Vol] 131 mg/dL [facility] Work Phone: HbA1c (Bld) [Mass fraction] 6.2 % Abnormal [facility] Work Phone: Comment on above: Diagnosis of Diabete s-Adults Non-Diabetic: < or = 5.6% Increased risk for developing diabetes: 5.7-6.4% Diagnostic of diabetes: > or = 6.5%. Monitoring of Diabetes Age (y) Therapeutic Goal (%) Adults: >18 <7.0 Pediatrics: 13-18 <7.5 7-12 <8.0 0- 6 7.5-8.5 [place] [employer]. Diabetes Care 33(S1), Oct 2009. Laboratory - Chemistry and C hemistry - challengeon 07-16-2021 Albumin BCP dye [Mass/Vol] 4.1 g/dL 3.4 - 5.0 [facility] Work Phone: ALP [Catalytic activity/Vol] 68 U/L 33 - 136 [facility] Work Phone: ALT With P-5'-P [Catalytic activity/Vol] 11 U/L 7 - 45 [facility] Work Phone: Comment on above: Patients treated wit h Sulfasalazine may generate falsely decreased results for ALT. Anion gap [Moles/Vol] 10 mmol/L 10 - 20 [facility] Work Phone: AST With P-5'-P [Catalytic activity/Vol] 13 U/L 9 - 39 [facility] Work Phone: Bilirubin [Mass/Vol] 0.6 mg/dL 0.0 - 1.2 [facility] Work Phone: Calcium [Mass/Vol] 9.2 mg/dL 8.6 - 10.3 [facility] Work Phone: Chloride [Moles/Vol] 104 mmol/L 98 - 107 [facility] Work Phone: CO2 [Moles/Vol] 32 mmol/L 21 - 32 [facility] Work Phone: Creatinine [Mass/Vol] 0.95 mg/dL See Below [facility] Work Phone: Comment on above: Reference Range: 0.5 0 - 1.05 Glucose [Mass/Vol] 86 mg/dL 74 - 99 [facility] Work Phone: Potassium [Moles/Vol] 4.1 mmol/L 3.5 - 5.3 [facility] Work Phone: Protein [Mass/Vol] 6.6 g/dL 6.4 - 8.2 [facility] Work Phone: Sodium [Moles/Vol] 142 mmol/L 136 - 145 [facility] Work Phone: Urea nitrogen [Mass/Vol] 18 mg/dL 6 - 23 [facility] Work Phone: Lipid Panelon 07-16-2021 Cholesterol [Mass/Vol] 262 mg/dL above hig h threshold 0 - 199 [facility] Work Phone: Comment on above: . AGE DESIRABLE BORD RANDI HIGH HIGH 0-19 Y 0 - 169 170 - 199 >/= 200 20-24 Y 0 - 189 190 - 224 >/= 225 >24 Y 0 - 199 200 - 239 >/= 240 All ranges are based on fasting samples. Specific therapeutic targets will vary based on patient-specific cardiac risk.. Pediatric guidelines reference:Pediatrics 2011, 128(S5). Adult guidelines reference: NCEP ATPIII Guidelines, NAYAN 2001, 258:2486-97. Venipuncture immediately after or during the administration of Metamizole may lead to falsely low results. Testing should be performed immediately prior to Metamizole dosing. Cholesterol in HDL [Mass/Vol] 58.0 mg/dL [facility] Work Phone: Comment on above: . AGE VERY LOW LOW N ORMAL HIGH 0-19 Y < 35 < 40 40-45 ---- 20-24 Y ---- < 40 >45 ---- >24 Y ---- < 40 40-60 >60. Cholesterol in LDL [Mass/Vol] 176 mg/dL above high threshold 0 - 99 [facility] Work Phone: Comment on above: . NEAR BORD AGE LAWRENCE RABLE OPTIMAL HIGH HIGH VERY HIGH 0-19 Y 0 - 109 --- 110-129 >/= 130 ---- 20-24 Y 0 - 119 --- 120-159 >/= 160 ---- >24 Y 0 - 99 100-129 130-159 160-189 >/=190. Cholesterol.total/Chol esterol in HDL [Mass ratio] 4.5 {ratio} [facility] Work Phone: Comment on above: REF VALUESDESIRABLE < 3.4HIGH RISK > 5.0 Triglyceride [Mass/Vol] 142 mg/dL 0 - 149 [facility] Work Phone: Comment on above: . AGE DESIRABLE BORD RANDI HIGH HIGH VERY HIGH 0 D-90 D 19 - 174 ---- ---- ----91 D- 9 Y 0 - 74 75 - 99 >/= 100 ---- 10-19 Y 0 - 89 90 - 129 >/= 130 ---- 20-24 Y 0 - 114 115 - 149 >/= 150 ---- >24 Y 0 - 149 150 - 199 200- 499 >/= 500. Venipuncture immediately after or during the administration of Metamizole may lead to falsely low results. Testing should be performed immediately prior to Metamizole dosing. Lipid Panel 28 mg/dL 0 - 40 [facility] Work Phone: No Panel Informationon 07-16 70 {mL/min/1.73m2} >60 [facility] Work Phone: Comment on above: CALCULATIONS OF BEBETO MATED GFR ARE PERFORMED USING THE MDRD STUDY EQUATION FOR THE IDMS-TRACEABLE CREATININE METHODS. CLIN CHEM 2007;53:766-72 58 {mL/min/1.73m2} Abnormal >60 [facility] Work Phone: Vitamin B12, Serumon 021 Cobalamin (Vitamin B12) [Mass/Vol] 173 pg/mL below low threshold 211 - 911 [facility] Work Phone: Tobacco Screening.on 021 Fall risk assessment b) One or more fall s in the last year [facility] Work Phone: Tobacco use status [facility] b) No [facility] Work Phone: Tobacco Screening. b) No [facility] Work Phone: No Panel Informationon 02-03 Normal [facility] Work Phone: [facility] Work Phone: Radiologyon 02-03-2021 XR Chest 2 Views Normal [facility] Work Phone: IO EKG Electrocardiogram- 12 Leadon 07-28-2020 IO EKG Electrocardiogram- 12 Lead See Scanned Document [facility] Work Phone: Hemoglobin A1Con 07-14-2020 HbA1c (Bld) [Mass fraction] 6.2 % [facility] Work Phone: Comment on above: Diagnosis of Diabete s-Adults Non-Diabetic: < or = 5.6% Increased risk for developing diabetes: 5.7-6.4% Diagnostic of diabetes: > or = 6.5%. Monitoring of Diabetes Age (y) Therapeutic Goal (%) Adults: >18 <7.0 Pediatrics: 13-18 <7.5 7-12 <8.0 0- 6 7.5-8.5 [place] [employer]. Diabetes Care 33(S1), Oct 2009. HbA1c (Bld) [Mass fraction] 131 {MG/DL} [facility] Work Phone: Metabolic Panelon 07-14-2020 ALP [Catalytic activity/Vol] 62 U/L 33 - 136 [facility] Work Phone: Anion gap [Moles/Vol] 13 mmol/L 10 - 20 [facility] Work Phone: [phone] Bilirubin [Mass/Vol] 0.5 mg/dL 0.0 - 1.2 [facility] Work Phone: Calcium [Mass/Vol] 7.8 mg/dL below low threshold 8.6 - 10.3 [facility] Work Phone: [phone] Chloride [Moles/Vol] 102 mmol/L 98 - 107 [facility] Work Phone: CO2 [Moles/Vol] 29 mmol/L 21 - 32 [facility] Work Phone: Creatinine [Mass/Vol] 0.83 mg/dL See Below [facility] Work Phone: Comment on above: Reference Range: 0.5 0 - 1.05 Glucose [Mass/Vol] 77 mg/dL 74 - 99 [facility] Work Phone: Potassium [Moles/Vol] 4.2 mmol/L 3.5 - 5.3 [facility] Work Phone: Protein [Mass/Vol] 6.4 g/dL 6.4 - 8.2 [facility] Work Phone: Sodium [Moles/Vol] 140 mmol/L 136 - 145 [facility] Work Phone: Urea nitrogen [Mass/Vol] 15 mg/dL 6 - 23 [facility] Work Phone: Otheron 07-14-2020 Albumin Ql (U) <7.0 See Below [facility] Work Phone: Comment on above: Reference Range: Not Established Albumin BCP dye [Mass/Vol] 3.8 g/dL 3.4 - 5.0 [facility] Work Phone: ALT With P-5'-P [Catalytic activity/Vol] 13 U/L 7 - 45 [facility] Work Phone: Comment on above: Patients treated wit h Sulfasalazine may generate falsely decreased results for ALT. AST With P-5'-P [Catalytic activity/Vol] 12 U/L 9 - 39 [facility] Work Phone: >60 >60 [facility] Work Phone: Comment on above: CALCULATIONS OF BEBETO MATED GFR ARE PERFORMED USING THE MDRD STUDY EQUATION FOR THE IDMS-TRACEABLE CREATININE METHODS. CLIN CHEM 2007;53:766-72 Urinalysison 07-14-2020 Albumin/Creatinine DL <= 20 mg/L (U) [Mass ratio] SEE COMMENT 0.0 - 30.0 [facility] Work Phone: Comment on above: One or more analytes used in this calculation is outside of the analytical measurement range.Calculation cannot be performed. Creatinine (U) [Mass/Vol] 13.0 mg/dL below low threshold See Below [facility] Work Phone: Comment on above: Reference Range: 20. 0 - 320.0 Metabolic Panelon 04-09-2020 Glucose [Mass/Vol] 100 mg/dL above high threshold 74 - 99 [facility] Work Phone: Complete Blood Count + Diffe rentialon 03-17-2020 Basophils (Bld) [#/Vol] 0.00 {x10E9/L} See Below [facility] 300 Work Phone: [phone] Comment on above: Reference Range: 0.0 0 - 0.10 Basophils/100 WBC (Bld) 0.5 % 0.0 - 2.0 [facility] 300 Work Phone: [phone] Eosinophils (Bld) [#/Vol] 0.20 {x10E9/L} See Below [facility] 300 Work Phone: [phone] Comment on above: Reference Range: 0.0 0 - 0.70 Eosinophils/100 WBC (Bld) 3.6 % 0.0 - 6.0 [facility] 300 Work Phone: [phone] Erythrocyte distribution width (RBC) [Ratio] 14.0 % See Below [facility] 300 Work Phone: [phone] Comment on above: Reference Range: 11. 5 - 14.5 Hematocrit (Bld) [Volume fraction] 39.2 % See Below [facility] 300 Work Phone: [phone] Comment on above: Reference Range: 36. 0 - 46.0 Hemoglobin (Bld) [Mass/Vol] 12.9 g/dL See Below [facility] 300 Work Phone: [phone] Comment on above: Reference Range: 12. 0 - 16.0 Lymphocytes (Bld) [#/Vol] 1.40 {x10E9/L} See Below [facility] 300 Work Phone: [phone] Comment on above: Reference Range: 1.2 0 - 4.80 Lymphocytes/100 WBC (Bld) 26.7 % See Below [facility] 300 Work Phone: [phone] Comment on above: Reference Range: 13. 0 - 44.0 MCHC (RBC) [Mass/Vol] 33.0 g/dL See Below [facility] 300 Work Phone: [phone] Comment on above: Reference Range: 32. 0 - 36.0 MCV (RBC) [Entitic vol] 91 fL 80 - 100 [facility] 300 Work Phone: [phone] Monocytes (Bld) [#/Vol] 0.50 {x10E9/L} See Below [facility] 300 Work Phone: [phone] Comment on above: Reference Range: 0.1 0 - 1.00 Monocytes/100 WBC (Bld) 8.9 % 2.0 - 10.0 [facility] 300 Work Phone: [phone] Neutrophils (Bld) [#/Vol] 3.10 {x10E9/L} See Below [facility] 300 Work Phone: [phone] Comment on above: Reference Range: 1.2 0 - 7.70 Percent differential counts (%) should be interpreted in the context of the absolute cell counts (cells/L). Neutrophils/100 WBC (Bld) 60.3 % See Below [facility] 300 Work Phone: [phone] Comment on above: Reference Range: 40. 0 - 80.0 Platelets (Bld) [#/Vol] 222 {x10E9/L} 150 - 450 [facility] 300 Work Phone: [phone] RBC (Bld) [#/Vol] 4.30 {x10E12/L} See Below [facility] 300 Work Phone: [phone] Comment on above: Reference Range: 4.0 0 - 5.20 WBC (Bld) [#/Vol] 5.1 {x10E9/L} 4.4 - 11.3 [facility] 300 Work Phone: [phone] Hemoglobin A1Con 03-17-2020 HbA1c (Bld) [Mass fraction] 6.2 % [facility] 300 Work Phone: [phone] Comment on above: Diagnosis of Diabete s-Adults Non-Diabetic: < or = 5.6% Increased risk for developing diabetes: 5.7-6.4% Diagnostic of diabetes: > or = 6.5%. Monitoring of Diabetes Age (y) Therapeutic Goal (%) Adults: >18 <7.0 Pediatrics: 13-18 <7.5 7-12 <8.0 0- 6 7.5-8.5 [employer] [employer]. Diabetes Care 33(S1), Oct 2009. HbA1c (Bld) [Mass fraction] 131 {MG/DL} [facility] 300 Work Phone: [phone] Metabolic Panelon 03-17-2020 ALP [Catalytic activity/Vol] 73 U/L 33 - 136 [facility] 300 Work Phone: [phone] Anion gap [Moles/Vol] 10 mmol/L 10 - 20 [facility] 300 Work Phone: [phone] Bilirubin [Mass/Vol] 0.5 mg/dL 0.0 - 1.2 [facility] 300 Work Phone: [phone] Calcium [Mass/Vol] 9.2 mg/dL 8.6 - 10.3 [facility] 300 Work Phone: [phone] Chloride [Moles/Vol] 101 mmol/L 98 - 107 [facility] Work Phone: [phone] CO2 [Moles/Vol] 33 mmol/L above high threshold 21 - 32 [facility] 300 Work Phone: [phone] Creatinine [Mass/Vol] 0.85 mg/dL See Below [facility] 300 Work Phone: [phone] Comment on above: Reference Range: 0.5 0 - 1.05 Glucose [Mass/Vol] 99 mg/dL 74 - 99 [facility] 300 Work Phone: [phone] Potassium [Moles/Vol] 3.9 mmol/L 3.5 - 5.3 [facility] 300 Work Phone: [phone] Protein [Mass/Vol] 6.3 g/dL below low threshold 6.4 - 8.2 [facility] 300 Work Phone: [phone] Sodium [Moles/Vol] 140 mmol/L 136 - 145 [facility] 300 Work Phone: [phone] Urea nitrogen [Mass/Vol] 22 mg/dL 6 - 23 [facility] 300 Work Phone: [phone] Otheron 03-17-2020 XR Shoulder 2 views Interpreted by: CHARLEY MOLINA03/18/20 14:57MRN: [id number] Name: TISH BUTLER STUDY:SHOULDER, CMPLT, MIN 2 VIEWS;Right; 03/17/2020 9:35 am INDICATION:right shoulder pain. COMPARISON:05/03/2019 ORDERING CLINICIAN:WANDA SIMPSON FINDINGS:RIGHT SHOULDER-AP, Y, AXILLARY AND OBLIQUE VIEWSNo change is seen from the last examination of 05/03/2019. Nofracture. The glenohumeral joint is normal in width. No periarticularcalcificatio n.Degenerative changes are present at the AC joint with osteophyteformation. A small spur is seen from the undersurface of acromion. IMPRESSION:No acute disease. Degenerative changes at the AC joint. Nosignificant change from the last examination of 05/03/2019.Electronically signed by: MONTSE MOLINA 03/18/20 14:57 Normal [facility] Work Phone: Albumin BCP dye [Mass/Vol] 4.1 g/dL 3.4 - 5.0 [facility] 300 Work Phone: ALT With P-5'-P [Catalytic activity/Vol] 10 U/L 7 - 45 [facility] 300 Work Phone: [phone] Comment on above: Patients treated wit h Sulfasalazine may generate falsely decreased results for ALT. AST With P-5'-P [Catalytic activity/Vol] 12 U/L 9 - 39 [facility] 300 Work Phone: [phone] >60 >60 [facility] 300 Work Phone: [phone] Comment on above: CALCULATIONS OF BEBETO MATED GFR ARE PERFORMED USING THE MDRD STUDY EQUATION FOR THE IDMS-TRACEABLE CREATININE METHODS. CLIN CHEM 2007;53:766-72 Glucose POCon 06-27-2019 Glucose [Mass/Vol] 73 mg/dL Normal 70-99 [facility] Comment on above: Performed By: #### 2 [id number] #### [facility] [address] [place] [address] XR Shoulder Complete Righton 05-04-2019 XR Shoulder Complete Right Exam Date/Time: 05/03/2019 11:42 EDT Reason for Exam: pain Report STUDY: XR Shoulder Complete Right; 05/03/2019 11:42 am INDICATION: pain. COMPARISON: None. ACCESSION NUMBER(S): [id number] ORDERING CLINICIAN: Wanda Simpson TECHNIQUE: 6 views of the right shoulder including AP, AP internal rotation , Grashey, axillary and scapular Y-views were obtained. FINDINGS: There is no radiographic evidence of acute fracture or dislocation identified. Minimal marginal osteophyte formation is seen in the right glenohumeral and acromioclavicular joints. IMPRESSION: 1. No evidence of acute fracture or dislocation. 2. Degenerative changes, as described above. FINAL REPORT Dictated: 05/04/2019 10:16 am Kike Hargrove MD Signed (Electronic Signature): 05/04/2019 10:16 am Signed by: Kike Hargrove MD Technologist: YARELY Normal [facility] CMPon 03-12-2019 Albumin [Mass/Vol] 3.9 g/dL Normal 3.4-5.0 [facility] Comment on above: Performed By: #### 2 [id number] #### [facility] [address] [place] [address] Albumin/Globulin [Mass ratio] 1.6 {ratio} Normal 1.1-1.9 [facility] Comment on above: Performed By: #### 2 [id number] #### [facility]her[facility] [address] [place] [address] Alk Phos 84 Int._Unit/L Normal 33-136 [facility] Comment on above: Performed By: #### 2 [id number] #### [facility] [address] [place] [address] ALT [Catalytic activity/Vol] 10 Int._Unit/L Normal 7-45 [facility] Comment on above: Performed By: #### 2 [id number] #### [facility] [address] [place] [address] Anion gap [Moles/Vol] 9 mmol/L Low 10-20 [facility] Comment on above: Performed By: #### 2 [id number] #### [facility] [address] [place] [address] AST [Catalytic activity/Vol] 11 Int._Unit/L Normal 9-39 [facility] Comment on above: Performed By: #### 2 [id number] #### [facility] [address] [place] [address] Bili Total 0.37 mg/dL Normal 0.00-1.20 [facility] Comment on above: Performed By: #### 2 [id number] #### [facility] [address] [place] [address] Calcium [Mass/Vol] 8.7 mg/dL Normal 8.6-10.3 [facility] Comment on above: Performed By: #### 2 149286 #### [facility] [address] [place] [address] Chloride [Moles/Vol] 104 mmol/L Normal 98-107 [facility] Comment on above: Performed By: #### 2 362305 #### [facility] [address] [place] [address] CO2 [Moles/Vol] 32.0 mmol/L Normal 21.0-32.0 [facility] Comment on above: Performed By: #### 2 098587 #### [facility] [address] [place] [address] Creatinine [Mass/Vol] 0.8 mg/dL Normal 0.5-1.1 [facility] Comment on above: Performed By: #### 2 333197 #### [facility] [address] [place] [address] Globulin (S) [Mass/Vol] 2.0 g/dL Normal 2.0-4.0 [facility] Comment on above: Performed By: #### 2 672546 #### [facility] [address] [place] [address] Glucose [Mass/Vol] 69 mg/dL Low 70-99 [facility] Comment on above: Performed By: #### 2 [id number] #### [facility] [address] [place] [address] Potassium [Moles/Vol] 4.2 mmol/L Normal 3.5-5.3 [facility] Comment on above: Performed By: #### 2 072876 #### [facility] [address] [place] [address] Protein [Mass/Vol] 6.3 g/dL Low 6.4-8.2 [facility] Comment on above: Performed By: #### 2 234793 #### [facility] [address] [place] [address] Sodium [Moles/Vol] 141 mmol/L Normal 136-145 [facility] Comment on above: Performed By: #### 2 936434 #### [facility] [address] [place] [address] Urea nitrogen [Mass/Vol] 19 mg/dL Normal 6-23 [facility] Comment on above: Performed By: #### 2 255259 #### [facility] [address] [place] [address] Urea nitrogen/Creatinine [Mass ratio] 23.8 ratio Normal 5.4-30.0 [facility] Comment on above: Performed By: #### 2 [id number] #### [facility] [address] [place] [address] [id number] 03-12-2019 HbA1c (Bld) [Mass fraction] 5.8 % Normal 4.0-6.3 [facility] Comment on above: Performed By: #### 2 764016 #### [facility] [address] [place] [address] eGFRon 03-12-2019 GFR/1.73 sq M predicted among non-blacks MDRD (S/P/Bld) [Vol rate/Area] mL/min/{1.73_m2} Normal [facility] Comment on above: Order Comment: Order Added by Discern Expert. Performed By: #### 2 [id number] #### [facility] [address] [place] [address] U Drug Screenon 02-05-2019 U Amph Scr Negative Normal Negative [facility] Comment on above: Performed By: #### 2 [id number] #### [facility] [address] [place] [address] U María Scr Positive Abnormal Negative [facility] Comment on above: Performed By: #### 2 [id number] #### [facility] [address] [place] [address] U Benzodia Scr Negative Normal Negative [facility] Comment on above: Performed By: #### 2 442654 #### [facility] [address] [place] [address] U Cannab Scr Negative Normal Negative [facility] Comment on above: Performed By: #### 2 560640 #### [facility] [address] [place] [address] U Cocaine Scr Negative Normal Negative [facility] Comment on above: Performed By: #### 2 249878 #### [facility] [address] [place] [address] U Opiate Scr Negative Normal Negative [facility] Comment on above: Performed By: #### 2 [id number] #### [facility] [address] [place] [address] U PCP Scr Negative Normal Negative [facility] Comment on above: Performed By: #### 2 [id number] #### [facility] [address] [place] [address] Glucose POCon 01-10-2019 Glucose [Mass/Vol] 82 mg/dL Normal 70-99 [facility] Comment on above: Performed By: #### 2 423562 #### [facility] [address] [place] [address] Glucose POCon 12-13-2018 Glucose [Mass/Vol] 58 mg/dL Low 70-99 [facility] Comment on above: Performed By: #### 2 [id number] #### [facility] [address] [place] [address] MRI Spine Cervical w/o Contr ti 11-30-2018 MRI Spine Cervical w/o Contrast Exam Date/Time: 11/30/2018 15:52 EST Reason for Exam: LUMBAR RADICULOPATHY CERVICAL RADICULOPATHY Report STUDY: MRI Spine Cervical w/o Contrast; 11/30/2018 3:52 pm INDICATION: LUMBAR RADICULOPATHY CERVICAL RADICULOPATHY. COMPARISON: None. ACCESSION NUMBER(S): [id number] ORDERING CLINICIAN: Dennis Tinsley TECHNIQUE: The cervical spine was studied in the sagittal and axial planes utilizing T1 and T2 weighted images. FINDINGS: The craniovertebral junction is normal. The cord is normal in size and signal. The marrow signal is normal. Serial axial images reveal the following: C2/C3 Thickening of the posterior longitudinal ligament in the midline without canal or foraminal narrowing C3/C4 Mild bilateral uncovertebral joint hypertrophy and facet hypertrophy without canal stenosis. Mild bilateral foraminal narrowing. C4/C5 Marginal osteophyte formation and uncovertebral joint hypertrophy asymmetrical to the right. Focal right-sided foraminal narrowing. No measurable canal stenosis. C5/C6 Bilateral uncovertebral joint hypertrophy and facet hypertrophy without canal stenosis. Bilateral foraminal narrowing worse on the left than the right C6/C7 Marginal osteophyte formation and bilateral uncovertebral joint hypertrophy. No measurable canal stenosis. Bilateral foraminal narrowing. C7/T1 There is normal alignment and vertebral body height. The disc space is normal. There is no evidence of canal or foraminal narrowing. There is no evidence of bulging or herniated disc. IMPRESSION: *Spondylosis with foraminal narrowing as described *No measurable canal stenosis or cord compression. *Focal foraminal narrowing at C4/C5 on the right. Exam Date/Time: 11/30/2018 15:52 EST Report THIS EXAMINATION WAS INTERPRETED AT [facility] FINAL REPORT Dictated: 11/30/2018 4:51 pm Bridger Martin MD Signed (Electronic Signature): 11/30/2018 4:51 pm Signed by: Bridger Martin MD Technologist: HE Carranza [facility] MRI Spine Lumbar w/o Contras ton 11-30-2018 MRI Spine Lumbar w/o Contrast Exam Date/Time: 11/30/2018 15:52 EST Reason for Exam: LUMBAR RADICULOPATHY CERVICAL RADICULOPATHY Report STUDY: MRI Spine Lumbar w/o Contrast; 11/30/2018 3:52 pm INDICATION: LUMBAR RADICULOPATHY CERVICAL RADICULOPATHY. COMPARISON: None. ACCESSION NUMBER(S): [id number] ORDERING CLINICIAN: Dennis Tinsley TECHNIQUE: The lumbar spine was studied in the sagital, axial and coronal planes utiliing T1 and T2 weighted images. FINDINGS: The marrow signal and vertebral body height are normal. The conus and sacrum are normal. Images at each interspace reveal the following: L1/L2 There is normal alignment and vertebral body height. The disc space is normal. There is no evidence of canal or foraminal narrowing. There is no evidence of bulging or herniated disc. L2/L3 Trace retrolisthesis and bulging of the intervertebral disc. Mild bilateral facet hypertrophy and foraminal narrowing. No measurable canal stenosis. L3/L4 Circumferential bulging intervertebral disc. Bilateral facet hypertrophy. Flattening of the thecal sac which measures 7 mm in AP dimension in the midline. Bilateral foraminal narrowing worse on the left than the right. Incidental horseshoe kidney L4/L5 Circumferential bulging intervertebral disc and bilateral facet hypertrophy. Suspected right paracentral disc herniation measuring 1 cm in size. Flattening of the thecal sac which measures approximately 6 mm in AP dimension in the midline. Bilateral foraminal narrowing L5/S1 Asymmetrical bulging of the intervertebral disc to the left. Bilateral facet hypertrophy worse on the left than the right. No measurable canal stenosis. Focal left-sided foraminal narrowing. IMPRESSION: *Lumbar spondylosis with canal and foraminal narrowing as described Exam Date/Time: 11/30/2018 15:52 EST Report The examination was interpreted [facility] FINAL REPORT Dictated: 11/30/2018 4:53 pm Bridger Martin MD Signed (Electronic Signature): 11/30/2018 4:53 pm Signed by: Bridger Martin MD Technologist: HE Normal [facility] XR Knees Bilateral 4+ Views (Specify Views in Comments)on 11-21-2018 4 views each knee re veals excellent position of total knee prosthesis and the patella tracks well [facility] Auto Diffon 11-14-2018 Basophils (Bld) [#/Vol] 0.0 E3/mcL Normal 0.0-0.2 [facility] Comment on above: Order Comment: Order Added by Discern Expert. Performed By: #### 2 [id number] #### [facility] [place] [address] Basophils/100 WBC (Bld) 0.8 % Normal 0.0-2.0 [facility] Comment on above: Order Comment: Order Added by Discern Expert. Performed By: #### 2 [id number] #### [facility] [place] [address] Eos Absolute 0.1 E3/mcL Normal 0.0-0.7 [facility] Comment on above: Order Comment: Order Added by Discern Expert. Performed By: #### 2 [id number] #### [facility] [place] [address] Eosinophils/100 WBC (Bld) 2.7 % Normal 0.0-11.0 [facility] Comment on above: Order Comment: Order Added by Discern Expert. Performed By: #### 2 249406 #### [facility] [place] [address] Lymphocytes (Bld) [#/Vol] 0.9 E3/mcL Low 1.2-3.4 [facility] Comment on above: Order Comment: Order Added by Discern Expert. Performed By: #### 2 721870 #### [facility] [address] [place] [address] Lymphocytes/100 WBC (Bld) 18.7 % Low 20.0-55.0 [facility] Comment on above: Order Comment: Order Added by Discern Expert. Performed By: #### 2 749172 #### [facility] [address] [place] [address] [place] Absolute 0.5 E3/mcL Normal 0.0-0.7 [facility] Comment on above: Order Comment: Order Added by Discern Expert. Performed By: #### 2 449327 #### [facility] [address] [place] [address] Monocytes/100 WBC (Bld) 9.5 % Normal 0.0-10.0 [facility] Comment on above: Order Comment: Order Added by Discern Expert. Performed By: #### 2 944147 #### [facility] [address] [place] [address] Neutro Absolute 3.5 E3/mcL Normal 1.4-6.5 [facility] Comment on above: Order Comment: Order Added by Discern Expert. Performed By: #### 2 676842 #### [facility] [address] [place] [address] Neutro Auto 68.3 % Normal 37.0-75.0 [facility] Comment on above: Order Comment: Order Added by Discern Expert. Performed By: #### 2 599121 #### [facility] [address] [place] [address] CBC w/ Auto Diffon 9 Erythrocyte distribution width (RBC) [Ratio] 14.9 % High 11.5-14.5 [facility] Comment on above: Performed By: #### 2 [id number] #### [facility]her[facility] [place] [address] Hematocrit (Bld) [Volume fraction] 39.3 % Normal 36.0-48.0 [facility] Comment on above: Performed By: #### 2 203605 #### [facility] [address] [place] [address] Hemoglobin (Bld) [Mass/Vol] 12.6 g/dL Normal 12.0-16.0 [facility] Comment on above: Performed By: #### 2 717593 #### [facility] [address] [place] [address] MCH (RBC) [Entitic mass] 29.0 pg Normal 27.0-31.0 [facility] Comment on above: Performed By: #### 2 405614 #### [facility] [address] [place] [address] MCHC (RBC) [Mass/Vol] 32.0 g/dL Low 33.0-37.0 [facility] Comment on above: Performed By: #### 2 187898 #### [facility] [place] [address] MCV (RBC) [Entitic vol] 90.6 fL Normal 78.0-100.0 [facility] Comment on above: Performed By: #### 2 180536 #### [facility] [address] [place] [address] Platelet mean volume (Bld) [Entitic vol] 8.3 fL Normal 7.4-11.0 [facility] Comment on above: Performed By: #### 2 [id number] #### [facility] [address] [place] [address] Platelets (Bld) [#/Vol] 282 E3/mcL Normal 130-400 [facility] Comment on above: Performed By: #### 2 418315 #### [facility] [address] [place] [address] RBC (Bld) [#/Vol] 4.34 E6/mcL Normal 3.90-5.40 [facility] Comment on above: Performed By: #### 2 703161 #### [facility] [address] [place] [address] WBC (Bld) [#/Vol] 5.1 E3/mcL Normal 3.6-11.0 [facility] Comment on above: Performed By: #### 2 [id number] #### [facility] [address] [place] [address] CMPon 11-14-2018 Albumin [Mass/Vol] 4.1 g/dL Normal 3.4-5.0 [facility] Comment on above: Performed By: #### 2 404020 #### [facility] [place] [address] Albumin/Globulin [Mass ratio] 1.5 {ratio} Normal 1.1-1.9 [facility] Comment on above: Performed By: #### 2 268065 #### [facility] [address] [place] [address] Alk Phos 94 Int._Unit/L Normal 33-136 [facility] Comment on above: Performed By: #### 2 442466 #### [facility]her[facility] [place] [address] ALT [Catalytic activity/Vol] 7 Int._Unit/L Normal 7-45 [facility] Comment on above: Performed By: #### 2 496996 #### [facility] [address] [place] [address] Anion gap [Moles/Vol] 9 mmol/L Low 10-20 [facility] Comment on above: Performed By: #### 2 507862 #### [facility] [address] [place] [address] AST [Catalytic activity/Vol] 11 Int._Unit/L Normal 9-39 [facility] Comment on above: Performed By: #### 2 [id number] #### [facility] [address] [place] [address] Bili Total 0.48 mg/dL Normal 0.00-1.20 [facility] Comment on above: Performed By: #### 2 589605 #### [facility] [address] [place] [address] Calcium [Mass/Vol] 9.3 mg/dL Normal 8.6-10.3 [facility] Comment on above: Performed By: #### 2 956427 #### [facility] [address] [place] [address] Chloride [Moles/Vol] 104 mmol/L Normal 98-107 [facility] Comment on above: Performed By: #### 2 570476 #### [facility] [address] [place] [address] CO2 [Moles/Vol] 30.0 mmol/L Normal 21.0-32.0 [facility] Comment on above: Performed By: #### 2 916559 #### [facility] [address] [place] [address] Creatinine [Mass/Vol] 0.8 mg/dL Normal 0.5-1.1 [facility] Comment on above: Performed By: #### 2 542249 #### [facility]her[facility] [address] [place] [address] Globulin (S) [Mass/Vol] 3.0 g/dL Normal 2.0-4.0 [facility] Comment on above: Performed By: #### 2 [id number] #### [facility] [address] [place] [address] Glucose [Mass/Vol] 93 mg/dL Normal 70-99 [facility] Comment on above: Performed By: #### 2 280337 #### [facility] [address] [place] [address] Potassium [Moles/Vol] 4.3 mmol/L Normal 3.5-5.3 [facility] Comment on above: Performed By: #### 2 027916 #### [facility] [address] [place] [address] Protein [Mass/Vol] 6.8 g/dL Normal 6.4-8.2 [facility] Comment on above: Performed By: #### 2 044379 #### [facility] [address] [place] [address] Sodium [Moles/Vol] 139 mmol/L Normal 136-145 [facility] Comment on above: Performed By: #### 2 711417 #### [facility] [address] [place] [address] Urea nitrogen [Mass/Vol] 13 mg/dL Normal 6-23 [facility] Comment on above: Performed By: #### 2 [id number] #### [facility] [address] [place] [address] Urea nitrogen/Creatinine [Mass ratio] 16.2 ratio Normal 5.4-30.0 [facility] Comment on above: Performed By: #### 2 [id number] #### [facility] [address] [place] [address] Sed Rate Automatedon 019 Sed Rate Automated 33 mm/hr Normal [facility] Comment on above: Result Comment: AGE- SPECIFIC REFERENCE RANGES FOR SEDIMENTATION RATE AUTOMATED REFERENCE RANGE - MM/HR AGE MEN WOMEN 0-2 0-2 - PUBERTY 3-13 3-13 PUBERTY - 50 YRS 0-15 0-20 > 50 YRS 0-20 0-30 Performed By: #### 2 [id number] #### [facility] RemHemo [address] [place] [address] eGFRon 11-14-2018 GFR/1.73 sq M predicted among non-blacks MDRD (S/P/Bld) [Vol rate/Area] mL/min/{1.73_m2} Normal [facility] Comment on above: Order Comment: Order added by Discern Expert. Performed By: #### 2 [id number] #### [facility] Rem[facility]emo [address] [place] [address] XR KNEE LEFT 2 VIEWS (STANDA RD)on 10-24-2018 2 views left knee re veals total knee replacement in excellent position without complications [facility] XR KNEE LEFT 2 VIEWS (STANDARD) 2 views left knee reveals total knee replacement in excellent position without complications Dictated by: ALEXANDRU WEINER on TueOct 24, 2018 5:37:38 PM EST Transcribed by: ALEXANDRU WEINER on TueOct 24, 2018 5:37:38 PM EST Finalized by: ALEXANDRU WEINER on TueOct 24, 2018 5:37:38 PM EST Normal [facility] XR KNEE RIGHT 2 VIEWS (STAND EL)on 10-24-2018 XR KNEE RIGHT 2 VIEWS (STANDARD) 2 views right knee reveals total knee replacement in excellent position without complications Dictated by: ALEXANDRU WEINER on TueOct 24, 2018 5:38:18 PM EST Transcribed by: ALEXANDRU WEINER on TueOct 24, 2018 5:38:18 PM EST Finalized by: ALEXANDRU WEINER on TueOct 24, 2018 5:38:18 PM EST Normal [facility] XR Knee Right 2 Views (Stand el)on 10-24-2018 2 views right knee reveals total knee replacement in excellent position without complications [facility] Glucose POCon 10-12-2018 Glucose [Mass/Vol] 86 mg/dL Normal 70-99 [facility] Comment on above: Performed By: #### 2 [id number] #### [facility] [address] [place] [address] Glucose [Mass/Vol] 80 mg/dL Normal 70-99 [facility] Comment on above: Performed By: #### 2 [id number] #### [facility] Rem[facility]emo [address] [place] [address] Glucose [Mass/Vol] 50 mg/dL Low 70-99 [facility] Comment on above: Result Comment: Resu lts verified Performed By: #### 2 [id number] #### [facility] Rem[facility]emo [address] [place] [address] Glucose POCon 10-11-2018 Glucose [Mass/Vol] 94 mg/dL Normal 70-99 [facility] Comment on above: Performed By: #### 1 [id number] #### [facility] RemChem [address] [place] [address] Glucose [Mass/Vol] 118 mg/dL High 70-99 [facility] Comment on above: Performed By: #### 1 [id number] #### [facility] [address] [place] [address] Glucose [Mass/Vol] 92 mg/dL Normal 70-99 [facility] Comment on above: Performed By: #### 1 [id number] #### [facility] [address] [place] [address] Glucose [Mass/Vol] 112 mg/dL High 70-99 [facility] Comment on above: Performed By: #### 1 [id number] #### [facility] [address] [place] [address] Hct & Hgbon 10-11-2018 Hematocrit (Bld) [Volume fraction] 27.7 % Low 36.0-48.0 [facility] Comment on above: Performed By: #### 1 [id number] #### [facility] [address] [place] [address] Hemoglobin (Bld) [Mass/Vol] 9.2 g/dL Low 12.0-16.0 [facility] Comment on above: Performed By: #### 1 [id number] #### [facility] [address] [place] [address] BMPon 10-10-2018 Anion gap [Moles/Vol] 9 mmol/L Low 10-20 [facility] Comment on above: Performed By: #### 2 [id number] #### [facility] D[employer]ink [address] [place] [address] Calcium [Mass/Vol] 8.6 mg/dL Normal 8.6-10.3 [facility] Comment on above: Performed By: #### 2 [id number] #### [facility] D[employer]ink [address] [place] [address] Chloride [Moles/Vol] 105 mmol/L Normal 98-107 [facility] Comment on above: Performed By: #### 2 [id number] #### [facility] [employer] [address] [place] [address] CO2 [Moles/Vol] 28.0 mmol/L Normal 21.0-32.0 [facility] Comment on above: Performed By: #### 2 [id number] #### [facility] [employer]ink [address] [place] [address] Creatinine [Mass/Vol] 0.9 mg/dL Normal 0.5-1.1 [facility] Comment on above: Performed By: #### 2 [id number] #### [facility] [employer] [address] [place] [address] Glucose [Mass/Vol] 68 mg/dL Low 70-99 [facility] Comment on above: Performed By: #### 2 [id number] #### [facility] [employer] [address] [place] [address] Potassium [Moles/Vol] 3.5 mmol/L Normal 3.5-5.3 [facility] Comment on above: Performed By: #### 2 [id number] #### [facility] [employer] [address] [place] [address] 31773 Sodium [Moles/Vol] 138 mmol/L Normal 136-145 [facility] Comment on above: Performed By: #### 2 [id number] #### [facility] Datalink [address] [place] [address] Urea nitrogen [Mass/Vol] 19 mg/dL Normal 6-23 [facility] Comment on above: Performed By: #### 2 [id number] #### [facility] D[employer]ink [address] [place] [address] Urea nitrogen/Creatinine [Mass ratio] 21.1 ratio Normal 5.4-30.0 [facility] Comment on above: Performed By: #### 2 [id number] #### [facility] D[employer]ink [address] [place] [address] Glucose POCon 10-10-2018 Glucose [Mass/Vol] 199 mg/dL High 70-99 [facility] Comment on above: Performed By: #### 1 [id number] #### [facility] [address] [place] [address] Glucose [Mass/Vol] 102 mg/dL High 70-99 [facility] Comment on above: Performed By: #### 1 [id number] #### [facility] [address] [place] [address]108 Glucose [Mass/Vol] 83 mg/dL Normal 70-99 [facility] Comment on above: Performed By: #### 1 [id number] #### [facility] [address] [place] [address] Glucose [Mass/Vol] 63 mg/dL Low 70-99 [facility] Comment on above: Result Comment: Foll ow Hypoglycemia Protocol Performed By: #### 1 [id number] #### [facility] [address] [place] [address] Glucose [Mass/Vol] 66 mg/dL Low 70-99 [facility] Comment on above: Result Comment: Foll ow Hypoglycemia Protocol Performed By: #### 1 [id number] #### [facility] [address] [place] [address] Glucose [Mass/Vol] 122 mg/dL High 70-99 [facility] Comment on above: Performed By: #### 2 [id number] #### [facility] D[employer]ink [address] [place] [address] Hct & Hgbon 10-10-2018 Hematocrit (Bld) [Volume fraction] 29.5 % Low 36.0-48.0 [facility] Comment on above: Performed By: #### 2 [id number] #### [facility] [employer] [address] [place] [address] Hemoglobin (Bld) [Mass/Vol] 9.8 g/dL Low 12.0-16.0 [facility] Comment on above: Performed By: #### 2 [id number] #### [facility] [employer] [address] [place] [address] eGFRon 10-10-2018 GFR/1.73 sq M predicted among non-blacks MDRD (S/P/Bld) [Vol rate/Area] 59 mL/min/1.73 m2 Normal [facility] Comment on above: Order Comment: Order added by Discern Expert. Performed By: #### 2 [id number] #### [facility] [employer] [address] [place] [address]65[address] GFR/1.73 sq M predicted among non-blacks MDRD (S/P/Bld) [Vol rate/Area] mL/min/{1.73_m2} Normal [facility] Comment on above: Order Comment: Order added by Discern Expert. Performed By: #### 2 [id number] #### [facility] [employer] [address] [place] [address] Glucose POCon 10-09-2018 Glucose [Mass/Vol] 229 mg/dL High 70-99 [facility] Comment on above: Performed By: #### 2 [id number] #### [facility] [employer] [address] [place] [address] Glucose [Mass/Vol] 295 mg/dL High 70-99 [facility] Comment on above: Performed By: #### 2 [id number] #### [facility] [employer] [address] [place] [address] 34965 Glucose [Mass/Vol] 174 mg/dL High 70-99 [facility] Comment on above: Performed By: #### 2 [id number] #### [facility] [employer] [address] [place] [address]89 Glucose [Mass/Vol] 138 mg/dL High 70-99 [facility] Comment on above: Performed By: #### 8 [id number] #### [facility] Urinalysis Automated Subsection [address] [place] [address]60 Glucose [Mass/Vol] 113 mg/dL High 70-99 [facility] Comment on above: Performed By: #### 8 [id number] #### [facility] Urinalysis Automated Subsection [address] [place] [address] Glucose [Mass/Vol] 105 mg/dL High 70-99 [facility] Comment on above: Performed By: #### 8 [id number] #### [facility] Urinalysis Automated Subsection [address] [place] [address] Glucose [Mass/Vol] 117 mg/dL High 70-99 [facility] Comment on above: Performed By: #### 8 [id number] #### [facility] Urinalysis Automated Subsection [address] [place] [address] 42891 Glucose [Mass/Vol] 70 mg/dL Normal 70-99 [facility] Comment on above: Performed By: #### 8 [id number] #### [facility] Urinalysis Automated Subsection [address] [place] [address] [id number] 10-09-2018 HbA1c (Bld) [Mass fraction] 5.6 % Normal 4.0-6.3 [facility] Comment on above: Performed By: #### 2 [id number] #### [facility] [employer] [address] [place], [place] [address] XR Knee 1 or 2 Views Lefton 10-09-2018 XR Knee 1 or 2 Views Left Exam Date/Time: 10/09/2018 11:40 EST Reason for Exam: Post-op total knee;Post Op Report STUDY: XR Knee 1 or 2 Views Left; 10/09/2018 11:40 am INDICATION: Post Op. COMPARISON: Pre-surgical films from 06/28/2017.. ACCESSION NUMBER(S): [id number] ORDERING CLINICIAN: Alexandru Weiner TECHNIQUE: 2 portable postoperative views of the left knee were obtained. FINDINGS: Immediately status post left knee arthroplasty. Femoral and tibial components appear well seated and in good alignment. Patellar component is radiolucent. There is postsurgical edema and subcutaneous emphysema anteriorly. There are midline skin oc anteriorly. No lytic or blastic destructive bone lesion. No acute fracture or dislocation. IMPRESSION: Immediately status post left knee arthroplasty. No acute fracture. FINAL REPORT Dictated: 10/09/2018 12:01 pm Jose Carlos García MD Signed (Electronic Signature): 10/09/2018 12:01 pm Signed by: Jose Carlos García MD Technologist: GEOVANY [facility] XR Knee 1 or 2 Views Righton 10-09-2018 XR Knee 1 or 2 Views Right Exam Date/Time: 10/09/2018 11:40 EST Reason for Exam: Post-op total knee;Post Op Report STUDY: XR Knee 1 or 2 Views Right; 10/09/2018 11:40 am INDICATION: Post Op. COMPARISON: Pre-surgical films from 01/25/2011 ACCESSION NUMBER(S): [id number] ORDERING CLINICIAN: Alexandru Weiner TECHNIQUE: AP and lateral portable postoperative views of the right knee were obtained. FINDINGS: Immediately status post right knee arthroplasty. Femoral and tibial components appear well seated and in good alignment. Patellar component is radiolucent. There are anterior midline skin oc. There is anterior soft tissue postsurgical gas and edema. No acute fracture or dislocation. No destructive bone lesion. There is an incidental smoothly marginated 23 x 12 mm rounded bone density partially overlapping the distal medial femoral metaphysis. This was not present previously and is most likely a calcified loose body, and not an exostosis. IMPRESSION: Immediately status post right knee arthroplasty. No acute fracture or dislocation. FINAL REPORT Dictated: 10/09/2018 12:03 pm Jose Carlos García MD Signed (Electronic Signature): 10/09/2018 12:03 pm Signed by: Jose Carlos García MD Technologist: GEOVANY [facility] C Urineon 09-21-2018 C Urine Final Report: 10,000 cfu/ml Escherichia coli 5,000 cfu/ml Group C Streptococcus noted. No known resistance to Penicillin or Vancomycin, sensitivity available upon request only. ORGANISM: EC SUSCEPTIBILITY RESULTS Antibiotic BILLY Dilutn BILLY Interp ORGANISM: EC Amox/Cla : <=8/4 S Amp : <=8 S Amp/Sul : <=8/4 S Cefaz : <=8 S Cefo : <=2 S Cipro : <=1 S Gent : <=4 S Levo : <=2 S Terry : <=1 S Nitro : <=32 S Pip/Sidney : <=16 S Tetra : <=4 S Tobra : <=4 S SXT : <=2/38 S Normal [facility] Comment on above: Performed By: #### 8 [id number] #### [facility] Urinalysis Automated Subsection [address] [place], [place] [id number] CMPon 09-19-2018 Albumin [Mass/Vol] 4.0 g/dL Normal 3.4-5.0 [facility] Comment on above: Performed By: #### 8 [id number] #### [facility] Urinalysis Automated Subsection [address] [place], [place] [address] Albumin/Globulin [Mass ratio] 1.6 {ratio} Normal 1.1-1.9 [facility] Comment on above: Performed By: #### 8 [id number] #### [facility] Urinalysis Automated Subsection [address] [place] [address] Alk Phos 72 Int._Unit/L Normal 33-136 [facility] Comment on above: Performed By: #### 8 [id number] #### [facility] Urinalysis Automated Subsection [address] [place], [place] [address] ALT [Catalytic activity/Vol] 12 Int._Unit/L Normal 7-45 [facility] Comment on above: Performed By: #### 8 [id number] #### [facility] Urinalysis Automated Subsection [address] [place], [place] [address] Anion gap [Moles/Vol] 9 mmol/L Low 10-20 [facility] Comment on above: Performed By: #### 8 [id number] #### [facility] Urinalysis Automated Subsection [address] [place], [place] [address] AST [Catalytic activity/Vol] 12 Int._Unit/L Normal 9-39 [facility] Comment on above: Performed By: #### 8 [id number] #### [facility] Urinalysis Automated Subsection [address] [place], [place] [address] Bili Total 0.44 mg/dL Normal 0.00-1.20 [facility] Comment on above: Performed By: #### 8 [id number] #### [facility] Urinalysis Automated Subsection [address] [place] [address] Calcium [Mass/Vol] 9.2 mg/dL Normal 8.6-10.3 [facility] Comment on above: Performed By: #### 8 [id number] #### [facility] Urinalysis Automated Subsection [facility] [place] [address] Chloride [Moles/Vol] 103 mmol/L Normal 98-107 [facility] Comment on above: Performed By: #### 8 [id number] #### [facility] Urinalysis Automated Subsection [facility] [place] [address] CO2 [Moles/Vol] 31.0 mmol/L Normal 21.0-32.0 [facility] Comment on above: Performed By: #### 8 [id number] #### [facility] Urinalysis Automated Subsection [address] [place] [address] 10278 Creatinine [Mass/Vol] 1.0 mg/dL Normal 0.5-1.1 [facility] Comment on above: Performed By: #### 8 [id number] #### [facility] Urinalysis Automated Subsection [address] [place] [address] 11222 Globulin (S) [Mass/Vol] 3.0 g/dL Normal 2.0-4.0 [facility] Comment on above: Performed By: #### 8 [id number] #### [facility] Urinalysis Automated Subsection [address] [place] [address] 95738 Glucose [Mass/Vol] 123 mg/dL High 70-99 [facility] Comment on above: Performed By: #### 8 [id number] #### [facility] Urinalysis Automated Subsection [address] [place] [address] 22734 Potassium [Moles/Vol] 3.8 mmol/L Normal 3.5-5.3 [facility] Comment on above: Performed By: #### 8 [id number] #### [facility] Urinalysis Automated Subsection [address] [place] [address] 31327 Protein [Mass/Vol] 6.5 g/dL Normal 6.4-8.2 [facility] Comment on above: Performed By: #### 8 [id number] #### [facility] Urinalysis Automated Subsection [address] [place] [address] 46934 Sodium [Moles/Vol] 139 mmol/L Normal 136-145 [facility] Comment on above: Performed By: #### 8 [id number] #### [facility] Urinalysis Automated Subsection [address] [place] [address] Urea nitrogen [Mass/Vol] 16 mg/dL Normal 6-23 [facility] Comment on above: Performed By: #### 8 [id number] #### [facility] Urinalysis Automated Subsection [address] [place] [address] Urea nitrogen/Creatinine [Mass ratio] 16.0 ratio Normal 5.4-30.0 [facility] Comment on above: Performed By: #### 8 [id number] #### [facility] Urinalysis Automated Subsection [address] [place] [id number] NM Myocardial Spect Multi Re st/Stresson 09-19-2018 NM Myocardial Spect Multi Rest/Stress Exam Date/Time: 09/19/2018 09:29 EST Reason for Exam: ABNORMAL EKG TAVALLAEE ORD GREGORY Report STUDY: NM Myocardial Spect Multi Rest/Stress; 09/19/2018 9:29 am INDICATION: ABNORMAL EKG TAVALLAEE ORD GREGORY. COMPARISON: None. ACCESSION NUMBER(S): [id number] ORDERING CLINICIAN: Gregg Miller TECHNIQUE: DIVISION OF NUCLEAR MEDICINE PHARMACOLOGIC STRESS MYOCARDIAL PERFUSION SCAN, ONE DAY PROTOCOL The patient received an intravenous dose of 10.4 mCi of Tc-99m sestamibi and resting emission tomographic (SPECT) images of the myocardium were acquired. The patient then received an intravenous infusion of 0.4 mg regadenoson (Lexiscan) followed by an additional dose of 32.4 mCi of Tc-99m sestamibi. Stress phase SPECT images of the myocardium were then acquired. These included ECG-gated images to assess and quantify ventricular function. FINDINGS: Stress and rest images both demonstrate a normal distribution of perfusion throughout all LV segments with no sign of ischemia. ECG-gated images demonstrate normal LV size and myocardial contractility with an LV ejection fraction of greater than 65 % (normal above 45 percent). IMPRESSION: 1. Normal stress myocardial perfusion imaging in response to pharmacologic stress. 2. Well-maintained left ventricular function. Images were interpreted at [facility]. FINAL REPORT Dictated: 09/19/2018 10:30 am Wai Farr MD Signed (Electronic Signature): 09/19/2018 10:30 am Signed by: Wai Farr MD Technologist: CAM Normal [facility] UA Completeon 09-19-2018 Color (U) Yellow Normal Yellow [facility] Comment on above: Performed By: #### 8 [id number] #### [facility] Urinalysis Automated Subsection [facility] [place] [address] Glucose (U) [Mass/Vol] Negative Normal Negative [facility] Comment on above: Performed By: #### 8 [id number] #### [facility] Urinalysis Automated Subsection [facility] [place] [address] Ketones Ql (U) Negative Normal Negative [facility] Comment on above: Performed By: #### 8 [id number] #### [facility] Urinalysis Automated Subsection [address] [place] [address] RBC (U) [#/Vol] 10-20 Abnormal 0-3 [facility] Comment on above: Performed By: #### 8 [id number] #### [facility] Urinalysis Automated Subsection [facility] [place] [address] UA Blood 2+ Abnormal Negative [facility] Comment on above: Performed By: #### 8 [id number] #### [facility] Urinalysis Automated Subsection [facility] [place] [address] UA Bacteria Trace Abnormal None [facility] Comment on above: Performed By: #### 8 [id number] #### [facility] Urinalysis Automated Subsection [facility] [place] [address] UA Clarity Clear Normal Clear [facility] Comment on above: Performed By: #### 8 [id number] #### [facility] Urinalysis Automated Subsection [facility] [place] [address] UA Leuk Est 2+ Abnormal Negative [facility] Comment on above: Performed By: #### 8 [id number] #### [facility] Urinalysis Automated Subsection [facility] [place] [address] UA Mucous Trace Abnormal Trace [facility] Comment on above: Performed By: #### 8 [id number] #### [facility] Urinalysis Automated Subsection [facility] [place] [address] UA Nitrite Negative Normal Negative [facility] Comment on above: Performed By: #### 8 [id number] #### [facility] Urinalysis Automated Subsection [address] [place] [address] 04335 UA pH 5.0 Normal 4.6-8.0 [facility] Comment on above: Performed By: #### 8 [id number] #### [facility] Urinalysis Automated Subsection [address] [place] [address] 20279 UA Protein Negative Normal Negative [facility] Comment on above: Performed By: #### 8 [id number] #### [facility] Urinalysis Automated Subsection [address] [place] [address] 01047 UA Spec Grav 1.020 Normal 1.003-1.03 0 [facility] Comment on above: Performed By: #### 8 [id number] #### [facility] Urinalysis Automated Subsection [address] [place] [address] 74395 UA Squam Epithelial 0-5 Normal 0-5 [facility] Comment on above: Performed By: #### 8 [id number] #### [facility] Urinalysis Automated Subsection [address] [place] [address] 66166 UA Transitional Epithelial 0-2 Normal 0-2 [facility] Comment on above: Performed By: #### 8 [id number] #### [facility] Urinalysis Automated Subsection [address] [place] [address] 66737 UA Urobilinogen 2.0 mg/dL Abnormal [facility] Comment on above: Result Comment: Due to a manufacturing issue, low positive urobilinogen results may be fasely positive. Correlate with urine bilirubin and additional clinical/laboratory findings to assess the risk of hemolytic anemia or liver disease. If clinically indicated, repeat testing with an alternate method is available by contacting the laboratory within 24 hours. Performed By: #### 8 [id number] #### [facility] Urinalysis Automated Subsection [address] [place] [address] 49715 UA WBC 10-20 Abnormal 0-5 [facility] Comment on above: Performed By: #### 8 [id number] #### [facility] Urinalysis Automated Subsection [address] [place] [address] 90453 Urobilinogen Qn (U) Negative Normal Negative [facility] Comment on above: Performed By: #### 8 [id number] #### [facility] Urinalysis Automated Subsection [address] [place] [address] XR Chest 2 Viewson 8 XR Chest 2 Views Exam Date/Time: 09/19/2018 06:35 EST Reason for Exam: COPD Report STUDY: XR Chest 2 Views; 09/19/2018 6:35 am INDICATION: COPD. COMPARISON: 07/30/2016 ACCESSION NUMBER(S): [id number] ORDERING CLINICIAN: Gregg Miller FINDINGS: PA and lateral views of the chest were obtained. Left basilar airspace consolidation is seen, is similar to the prior study, and may represent atelectasis and/or pneumonia. No pneumothorax is identified. The cardiac silhouette is within normal limits for size. Minimal discogenic degenerative changes are seen throughout the thoracic spine. IMPRESSION: Left basilar airspace consolidation, as described above. Clinical correlation and continued follow-up until clearing is recommended. FINAL REPORT Dictated: 09/19/2018 9:35 am Kike Hargrove MD Signed (Electronic Signature): 09/19/2018 9:35 am Signed by: Kike Hargrove MD Technologist: MEREDITH [facility] eGFRon 09-19-2018 GFR/1.73 sq M predicted among non-blacks MDRD (S/P/Bld) [Vol rate/Area] mL/min/{1.73_m2} [facility] Comment on above: Order Comment: Order added by Discern Expert. Performed By: #### 8 [id number] #### [facility] Urinalysis Automated Subsection [address] [place] [address] GFR/1.73 sq M predicted among non-blacks MDRD (S/P/Bld) [Vol rate/Area] 58 mL/min/1.73 m2 [facility] Comment on above: Order Comment: Order added by Discern Expert. Performed By: #### 8 [id number] #### [facility] Urinalysis Automated Subsection [address] [place] [address] MRSA by PCRon 09-13-2018 MRSA by PCR Negative [facility] Comment on above: Result Comment: A ne gative result does not preclude MRSA/SA nasal colonization. The performance characteristics were not established for patients =< 21 years of age. Performed By: #### 2 [id number] #### DIMA Misc Micro SubSection , SA by PCR Positive Abnormal [facility] Comment on above: Result Comment: A ne gative result does not preclude MRSA/SA nasal colonization. The performance characteristics were not established for patients =< 21 years of age. Performed By: #### 2 [id number] #### D[facility]A Misc Micro SubSection , ABO/Rh Echoon 09-12-2018 ABO/Rh E Interp... Positive Normal [facility] Comment on above: Performed By: #### 8 [id number] #### [facility] Blood Bank Subsection [address] [place] [address] 89068 Antibody Screen Cap...on Screen Interp... Negative Normal [facility] Comment on above: Performed By: #### 8 [id number] #### [facility] Blood Bank Subsection [address] [place] [address] 12236 Auto Diffon 09-12-2018 Basophils (Bld) [#/Vol] 0.0 E3/mcL Normal 0.0-0.2 [facility] Comment on above: Order Comment: Order Added by Discern Expert. Performed By: #### 2 [id number] #### [facility] Rem[employer]emo [address] [place] [address]6499 Basophils/100 WBC (Bld) 0.7 % Normal 0.0-2.0 [facility] Comment on above: Order Comment: Order Added by Discern Expert. Performed By: #### 2 [id number] #### [facility] RemHemo [address] [place] [address] 35197 Eos Absolute 0.2 E3/mcL Normal 0.0-0.7 [facility] [place] Comment on above: Order Comment: Order Added by Discern Expert. Performed By: #### 2 [id number] #### [facility] [employer] [address] [place] [address] Eosinophils/100 WBC (Bld) 3.1 % Normal 0.0-11.0 [facility] [place] Comment on above: Order Comment: Order Added by Discern Expert. Performed By: #### 2 [id number] #### DIMA [employer] [address] [place] [address] Lymphocytes (Bld) [#/Vol] 1.1 E3/mcL Low 1.2-3.4 [facility] [place] Comment on above: Order Comment: Order Added by Discern Expert. Performed By: #### 2 [id number] #### DIMA [employer] [address] [place] [address] Lymphocytes/100 WBC (Bld) 20.7 % Normal 20.0-55.0 [facility] [place] Comment on above: Order Comment: Order Added by Discern Expert. Performed By: #### 2 [id number] #### [facility] [employer] [address] [place] [address] [place] Absolute 0.5 E3/mcL Normal 0.0-0.7 [facility] [place] Comment on above: Order Comment: Order Added by Discern Expert. Performed By: #### 2 [id number] #### [facility] [employer] [address] [place] [address] Monocytes/100 WBC (Bld) 9.3 % Normal 0.0-10.0 [facility] [place] Comment on above: Order Comment: Order Added by Discern Expert. Performed By: #### 2 [id number] #### [facility] [employer] [address] [place] [address] Neutro Absolute 3.7 E3/mcL Normal 1.4-6.5 [facility] [place] Comment on above: Order Comment: Order Added by Discern Expert. Performed By: #### 2 [id number] #### [facility] [employer] [address] [place], [place] [id number] Neutro Auto 66.2 % Normal 37.0-75.0 [facility] [place] Comment on above: Order Comment: Order Added by Discern Expert. Performed By: #### 2 [id number] #### [facility] [employer] [address] [place] [address] BMPon 09-12-2018 Anion gap [Moles/Vol] 9 mmol/L Low 10-20 [facility] Comment on above: Performed By: #### 2 [id number] #### [employer] [address] [place] [address]21 Calcium [Mass/Vol] 8.7 mg/dL Normal 8.6-10.3 [facility] Comment on above: Performed By: #### 2 [id number] #### [employer] [address] [place] [address] Chloride [Moles/Vol] 106 mmol/L Normal 98-107 [facility] Comment on above: Performed By: #### 2 [id number] #### [employer] [address] [place] [address] 15180 CO2 [Moles/Vol] 31.0 mmol/L Normal 21.0-32.0 [facility] Comment on above: Performed By: #### 2 [id number] #### [employer] [address] [place] [address]267 Creatinine [Mass/Vol] 0.9 mg/dL Normal 0.5-1.1 [facility] Comment on above: Performed By: #### 2 [id number] #### [employer] [address] [place] [address] Glucose [Mass/Vol] 82 mg/dL Normal 70-99 [facility] Comment on above: Performed By: #### 2 [id number] #### [employer] [address] [place] [address]647 Potassium [Moles/Vol] 4.2 mmol/L Normal 3.5-5.3 [facility] Comment on above: Performed By: #### 2 [id number] #### [employer] [address] [place] [address] 33050 Sodium [Moles/Vol] 142 mmol/L Normal 136-145 [facility] Comment on above: Performed By: #### 2 [id number] #### [employer] [address] [place] [address] 75771 Urea nitrogen [Mass/Vol] 12 mg/dL Normal 6-23 [facility] [place] Comment on above: Performed By: #### 2 [id number] #### [employer] [address] [place] [address] 11149 Urea nitrogen/Creatinine [Mass ratio] 13.3 ratio Normal 5.4-30.0 [facility] [place] Comment on above: Performed By: #### 2 [id number] #### [employer] [address] [place] [address] CBC w/ Auto Diffon 8 Erythrocyte distribution width (RBC) [Ratio] 13.6 % Normal 11.5-14.5 [facility] [place] Comment on above: Performed By: #### 2 [id number] #### DIMA [employer]her[employer]emo [address] [place] [address] Hematocrit (Bld) [Volume fraction] 39.6 % Normal 36.0-48.0 [facility] [place] Comment on above: Performed By: #### 2 [id number] #### [facility] [place] [address] Hemoglobin (Bld) [Mass/Vol] 13.2 g/dL Normal 12.0-16.0 [facility] [place] Comment on above: Performed By: #### 2 [id number] #### [facility]A MosherHemo [address] [place] [address]05 MCH (RBC) [Entitic mass] 30.2 pg Normal 27.0-31.0 [facility] [place] Comment on above: Performed By: #### 2 [id number] #### [facility] [address] [place] [address]75 MCHC (RBC) [Mass/Vol] 33.3 g/dL Normal 33.0-37.0 [facility] Comment on above: Performed By: #### 2 [id number] #### [facility] Mosher[employer] [address] [place] [address]2498 MCV (RBC) [Entitic vol] 90.6 fL Normal 78.0-100.0 [facility] [place] Comment on above: Performed By: #### 2 [id number] #### [facility] [employer] [place] [address] Platelet mean volume (Bld) [Entitic vol] 9.5 fL Normal 7.4-11.0 [facility] [place] Comment on above: Performed By: #### 2 [id number] #### [facility] [employer] [address] [place] [address] Platelets (Bld) [#/Vol] 205 E3/mcL Normal 130-400 [facility] [place] Comment on above: Performed By: #### 2 [id number] #### [facility] [employer] [address] [place] [address] RBC (Bld) [#/Vol] 4.37 E6/mcL Normal 3.90-5.40 [facility] Comment on above: Performed By: #### 2 [id number] #### [facility] [employer] [facility] [place] [address] WBC (Bld) [#/Vol] 5.5 E3/mcL Normal 3.6-11.0 [facility] Comment on above: Performed By: #### 2 [id number] #### [facility] [employer] [address] [place] [address] UA Completeon 09-12-2018 Color (U) Yellow Normal Yellow [facility] [place] Comment on above: Performed By: #### 8 [id number] #### [facility] Urinal[facility] [employer] [address] [place] [address] Glucose (U) [Mass/Vol] Negative Normal Negative [facility] Comment on above: Performed By: #### 8 [id number] #### [facility] [employer] [facility] [address] [place] [address] Ketones Ql (U) Negative Normal Negative [facility] [place] Comment on above: Performed By: #### 8 [id number] #### [facility] [address] [place] [address] RBC (U) [#/Vol] 0-3 Normal 0-3 [facility] [place] Comment on above: Performed By: #### 8 [id number] #### [facility]inal[facility] [address] [place] [address] UA Blood Negative Normal Negative [facility] [place] Comment on above: Performed By: #### 8 [id number] #### [facility] [employer] [facility] [address] [place], [place] [id number] UA Amorph Mony Trace Abnormal [facility] Comment on above: Performed By: #### 8 [id number] #### [facility] [employer] [facility] [address] [place] [address] UA Bacteria Trace Abnormal None [facility] [place] Comment on above: Performed By: #### 8 [id number] #### [facility]inal[facility] [employer] [address] [place] [address] UA Clarity Clear Normal Clear [facility] [place] Comment on above: Performed By: #### 8 [id number] #### [facility] Urinalysis Automated Subsection [facility] [place] [address] UA Hyal Cast 0-2 Normal 0-2 [facility] [place] Comment on above: Performed By: #### 8 [id number] #### [facility] Urinalysis Automated Subsection [facility] [place] [address] UA Leuk Est 2+ Abnormal Negative [facility] [place] Comment on above: Performed By: #### 8 [id number] #### [facility] Urinalysis Automated Subsection [facility] [place] [address] UA Mucous Trace Abnormal Trace [facility] [place] Comment on above: Performed By: #### 8 [id number] #### [facility] Urinalysis Autom[employer] [facility]section [address] [place] [address] UA Nitrite Negative Normal Negative [facility] [place] Comment on above: Performed By: #### 8 [id number] #### [facility] Urinalysis Autom[employer] [facility]section [address] [place] [address] UA pH 5.0 Normal 4.6-8.0 [facility] [place] Comment on above: Performed By: #### 8 [id number] #### [facility] Urinalysis [employer] [facility] [address] [place] [address] 26427 UA Protein Negative Normal Negative [facility] [place] Comment on above: Performed By: #### 8 [id number] #### [facility] Urinalysis [employer] [facility] [address] [place], [place] [id number] UA Spec Grav 1.017 Normal 1.003-1.03 0 [facility] [place] Comment on above: Performed By: #### 8 [id number] #### [facility] Urinalysis Automated Subsection [facility] [place] [address] UA Squam Epithelial 10-20 Abnormal 0-5 [facility] Comment on above: Performed By: #### 8 [id number] #### [facility] Urinalysis [employer] [facility]section [address] [place] [address] UA Transitional Epithelial 0-2 Normal 0-2 [facility] [place] Comment on above: Performed By: #### 8 [id number] #### [facility] Urinal[facility] [employer] [address] [place] [address] UA Urobilinogen 2.0 mg/dL Abnormal [facility] [place] Comment on above: Result Comment: Due to a manufacturing issue, low positive urobilinogen results may be fasely positive. Correlate with urine bilirubin and additional clinical/laboratory findings to assess the risk of hemolytic anemia or liver disease. If clinically indicated, repeat testing with an alternate method is available by contacting the laboratory within 24 hours. Performed By: #### 8 [id number] #### [facility] Urinalysis [facility] [address] [place] [address] UA WBC 20-50 Abnormal 0-5 [facility] [place] Comment on above: Performed By: #### 8 [id number] #### [facility] Urinalysis Autom[employer] [facility] [address] [place] [address] Urobilinogen Qn (U) Negative Normal Negative [facility] Comment on above: Performed By: #### 8 [id number] #### [facility] Urinal[facility] [address] [place] [address] XR KNEES BILATERAL 4+ VIEWS (SPECIFY VIEWS IN COMMENTS)on 09-12-2018 XR KNEES BILATERAL 4+ VIEWS (SPECIFY VIEWS IN COMMENTS) 4 views each knee reveals severe tricompartmental degenerative arthritis with osteophytes and bone against bone in all compartments Dictated by: ALEXANDRU WEINER on TueSep 12, 2018 4:35:41 PM EST Transcribed by: ALEXANDRU WEINER on TueSep 12, 2018 4:35:41 PM EST Finalized by: ALEXANDRU WEINER on TueSep 12, 2018 4:35:41 PM EST Normal [facility] eGFRon 09-12-2018 GFR/1.73 sq M predicted among non-blacks MDRD (S/P/Bld) [Vol rate/Area] 60 mL/min/1.73 m2 Normal [facility] [place] Comment on above: Order Comment: Order added by Discern Expert. Performed By: #### 1 [id number] #### [facility] [employer] [address] [place] [address] GFR/1.73 sq M predicted among non-blacks MDRD (S/P/Bld) [Vol rate/Area] mL/min/{1.73_m2} Normal [facility] Comment on above: Order Comment: Order added by Discern Expert. Performed By: #### 1 [id number] #### [facility] [employer] [address] [place] [address] [place] Mamm Screen w/CAD if perf and 3D Bilon 07-18-2018 Bilirubin.direct [Mass/Vol] Exam Date/Time: 07/18/2018 11:07 EDT Reason for Exam: SCREENING 3D/MARY JO;Screening Report STUDY: Digital mammography screening with mary jo; 07/18/2018 11:07 am ACCESSION NUMBER(S): [id number] ORDERING CLINICIAN: Gregg Miller INDICATION: Screening. COMPARISON: Comparison is made to prior digital mammograms dated06/22/2016 and 06/18/2015 FINDINGS: CC and MLO 2D digital mammograms and digital breast tomosynthesis images were obtained of the bilateral breasts. 3-D volume images were reconstructed in 4 views at an independent workstation as 1 mm slices through the breasts in both the CC and MLO projections. The breast tissue is almost entirely fatty. No discrete mass or focal asymmetry is identified. No suspicious microcalcifications or foci of architectural distortion are seen. There has been no significant change. This study was interpreted with CAD. IMPRESSION: No mammographic evidence of malignancy. BI-RADS CATEGORY: Category: 1 - Negative. Recommendation: Normal Interval Follow-up, Over Age 40. Recall Interval: 12 Months. Breast Density: Fatty. FINAL REPORT Dictated: 07/18/2018 12:58 pm Kike Hargrove MD Signed (Electronic Signature): 07/18/2018 12:58 pm Signed by: Kike Hargrove MD Technologist: BERTRAND Assessment: BI-RADS Category 1-Negative Recommendation: Normal interval follow-up Normal [facility] [place] Vital Signs Date Time Vital Sign Value Performing Clinician Facility 01-02-2025 15:15-0400 Body temperature 98.2 [degF] Dr. Mariola Magdaleno MD Work Phone: [facility] 01-02-2025 15:15-0400 Diastolic blood pressure 40 mm[Hg] Dr. Mariola Magdaleno MD Work Phone: [facility] 01-02-2025 15:15-0400 Heart rate 79 /min Dr. Mariola Magdaleno MD Work Phone: [facility] 01-02-2025 15:15-0400 Inhaled oxygen flow rate 2 L/min Dr. Mariola Magdaleno MD Work Phone: [facility] 01-02-2025 15:15-0400 Respiratory rate 18 /min Dr. Mariola Magdaleno MD Work Phone: [facility] 01-02-2025 15:15-0400 SaO2% (BldA) [Mass fraction] 98 % Dr. Mariola Magdaleno MD Work Phone: [facility] 01-02-2025 15:15-0400 Systolic blood pressure 119 mm[Hg] Dr. Mariola Magdaleno MD Work Phone: [facility] 01-02-2025 10:50-0400 Body height 162.[address] Mariola Magdalneo MD Work Phone: [facility] 01-02-2025 10:50-0400 Body weight 103.[address] Mariola Magdaleno MD Work Phone: [facility] 01-02-2025 03:03-0400 Body mass index (BMI) [Ratio] 39.2 kg/m2 Dr. Mariola Magdaleno MD Work Phone: [facility] 01-01-2025 22:13-0400 Body temperature 98.2 [degF] Dr. Mariola Magdaleno MD Work Phone: [facility] 01-01-2025 22:13-0400 Diastolic blood pressure 68 mm[Hg] Dr. Mariola Magdaleno MD Work Phone: [facility] 01-01-2025 22:13-0400 Heart rate 79 /min Dr. Mariola Magdaleno MD Work Phone: [facility] 01-01-2025 22:13-0400 Respiratory rate 19 /min Dr. Mariola Magdaleno MD Work Phone: [facility] 01-01-2025 22:13-0400 SaO2% (BldA) [Mass fraction] 98 % Dr. Mariola Magdaleno MD Work Phone: [facility] 01-01-2025 22:13-0400 Systolic blood pressure 127 mm[Hg] Dr. Mariola Magdaleno MD Work Phone: [facility] 01-01-2025 22:00-0400 Inhaled oxygen flow rate 2 L/min Dr. Mariola Magdaleno MD Work Phone: [facility] 01-01-2025 17:27-0400 Body height 165.[address] Mariola Magdaleno MD Work Phone: [facility] 01-01-2025 17:27-0400 Body mass index (BMI) [Ratio] 37.5 kg/m2 Dr. Mariola Magdaleno MD Work Phone: [facility] 01-01-2025 17:27-0400 Body weight 102.[address] Mariola Magdaleno MD Work Phone: [facility] 12-17-2024 11:31-0400 Body mass index (BMI) [Ratio] 39.27 kg/m2 Tara Khoury MD Work Phone: [facility] 12-17-2024 11:31-0400 Body weight 102.97 kg Tara Khoury MD Work Phone: [facility] 12-17-2024 11:31-0400 Diastolic blood pressure 81 mm[Hg] Tara Khoury MD Work Phone: [facility] 12-17-2024 11:31-0400 Heart rate 76 /min Tara Khoury MD Work Phone: [facility] 12-17-2024 11:31-0400 Respiratory rate 17 /min Tara Khoury MD Work Phone: [facility] 12-17-2024 11:31-0400 SaO2% (BldA) [Mass fraction] 95 % Tara Khoury MD Work Phone: [facility] 12-17-2024 11:31-0400 Systolic blood pressure 133 mm[Hg] Tara Khoury MD Work Phone: [facility] 06-18-2024 11:21-0400 Body height 161.9 cm Tara Khoury MD Work Phone: [facility] 06-18-2024 11:21-0400 Body mass index (BMI) [Ratio] 39.27 kg/m2 Tara Khoury MD Work Phone: [facility] 06-18-2024 11:21-0400 Body weight 102.97 kg Tara Khoury MD Work Phone: [facility] 06-18-2024 11:21-0400 Diastolic blood pressure 78 mm[Hg] Tara Khoury MD Work Phone: [facility] 06-18-2024 11:21-0400 Heart rate 89 /min Tara Khoury MD Work Phone: [facility] 06-18-2024 11:21-0400 Respiratory rate 14 /min Tara Khoury MD Work Phone: [facility] 06-18-2024 11:21-0400 SaO2% (BldA) [Mass fraction] 98 % Tara Khoury MD Work Phone: [facility] 06-18-2024 11:21-0400 Systolic blood pressure 126 mm[Hg] Tara Khoury MD Work Phone: [facility] 06-18-2024 11:190400 Body height 161.9 cm Pulm Wstr Work Phone: [facility] 06-18-2024 11:19-0400 Body mass index (BMI) [Ratio] 39.27 kg/m2 Pulm Wstr Work Phone: [facility] 06-18-2024 11:19-0400 Body weight 102.97 kg Pulm Wstr Work Phone: [facility] 06-18-2024 11:19-0400 Heart rate 89 /min Pulm Wstr Work Phone: [facility] 06-18-2024 11:19-0400 Respiratory rate 14 /min Pulm Wstr Work Phone: [facility] 06-18-2024 11:19-0400 SaO2% (BldA) [Mass fraction] 98 % Pulm Wstr Work Phone: [facility] 01-02-2024 10:07-0400 Body height 165.[address] Mariola Magdaleno Work Phone: [facility] 01-02-2024 10:07-0400 Body mass index (BMI) [Ratio] 37.5 kg/m2 Dr. Mariola Magdaleno Work Phone: [facility] 01-02-2024 10:07-0400 Body temperature 97.3 [degF] Dr. Mariola Magdaleno Work Phone: [facility] 01-02-2024 10:07-0400 Body weight 102.[address] Mariola Magdaleno Work Phone: [facility] 01-02-2024 10:07-0400 Diastolic blood pressure 80 mm[Hg] Dr. Mariola Magdaleno Work Phone: [facility] 01-02-2024 10:07-0400 Heart rate 79 /min Dr. Mariola Magdaleno Work Phone: [facility] 01-02-2024 10:07-0400 Inhaled oxygen flow rate 2 L/min Dr. Mariola Magdaleno Work Phone: [facility] 01-02-2024 10:07-0400 Respiratory rate 18 /min Dr. Mariola Magdaleno Work Phone: [facility] 01-02-2024 10:07-0400 SaO2% (BldA) [Mass fraction] 96 % Dr. Mariola Magdaleno Work Phone: [facility] 01-02-2024 10:07-0400 Systolic blood pressure 120 mm[Hg] Dr. Mariola Magdaleno Work Phone: [facility] 12-09-2023 10:26-0500 Body weight 105.23 kg Tara Khoury MD Work Phone: [facility] 12-09-2023 10:26-0500 Diastolic blood pressure 82 mm[Hg] Tara Khoury MD Work Phone: [facility] 12-09-2023 10:26-0500 Heart rate 74 /min Tara Khoury MD Work Phone: [facility] 12-09-2023 10:26-0500 Respiratory rate 20 /min Tara Khoury MD Work Phone: [facility] 12-09-2023 10:26-0500 SaO2% (BldA) [Mass fraction] 95 % Tara Khoury MD Work Phone: [facility] 12-09-2023 10:26-0500 Systolic blood pressure 122 mm[Hg] Tara Khoury MD Work Phone: [facility] 11-08-2023 14:35-0500 Body mass index (BMI) [Ratio] 37.9 kg/m2 Dr. Mariola Magdaleno Work Phone: [facility] 11-08-2023 14:35-0500 Body weight 103.[address] Mariola Magdaleno Work Phone: [facility] 11-08-2023 14:35-0500 Diastolic blood pressure 82 mm[Hg] Dr. Mariola Magdaleno Work Phone: [facility] 11-08-2023 14:35-0500 Heart rate 81 /min Dr. Mariola Magdaleno Work Phone: [facility] 11-08-2023 14:35-0500 Inhaled oxygen flow rate 2 L/min Dr. Mariola Magdaleno Work Phone: [facility] 11-08-2023 14:35-0500 Respiratory rate 20 /min Dr. Mariola Magdaleno Work Phone: [facility] 11-08-2023 14:35-0500 SaO2% (BldA) [Mass fraction] 95 % Dr. Mariola Magdaleno Work Phone: [facility] 11-08-2023 14:35-0500 Systolic blood pressure 130 mm[Hg] Dr. Mariola Magdaleno Work Phone: [facility] 06-01-2023 14:53-0400 Body height 165.1 cm Amy Aimee PA-C Work Phone: [facility] 06-01-2023 14:53-0400 Body weight 103.33 kg Amy Aimee PA-C Work Phone: [facility] 06-01-2023 14:53-0400 Diastolic blood pressure 84 mm[Hg] Amy Aimee PA-C Work Phone: [facility] 06-01-2023 14:53-0400 Heart rate 80 /min Amy Aimee PA-C Work Phone: [facility] 06-01-2023 14:53-0400 Respiratory rate 16 /min Amy Aimee PA-C Work Phone: [facility] 06-01-2023 14:53-0400 SaO2% (BldA) [Mass fraction] 95 % Amy Aimee PA-C Work Phone: [facility] 06-01-2023 14:53-0400 Systolic blood pressure 122 mm[Hg] Amy Aimee PA-C Work Phone: [facility] 04-01-2023 13:29-0400 Body weight 103.42 kg Amy Aimee PA-C Work Phone: [facility] 04-01-2023 13:29-0400 Diastolic blood pressure 78 mm[Hg] Amy Aimee PA-C Work Phone: [facility] 04-01-2023 13:29-0400 Heart rate 59 /min Amy Bernardoone PA-C Work Phone: [facility] 04-01-2023 13:29-0400 Respiratory rate 17 /min Amy Bernardoone PA-C Work Phone: [facility] 04-01-2023 13:29-0400 SaO2% (BldA) [Mass fraction] 97 % Amy Bernardoone PA-C Work Phone: [facility] 04-01-2023 13:29-0400 Systolic blood pressure 118 mm[Hg] Amy Bernardoone PA-C Work Phone: [facility] 03-24-2023 19:50-0400 Diastolic blood pressure 87 mm[Hg] Dr. Mariola Magdaleno Work Phone: [facility] 03-24-2023 19:50-0400 Heart rate 75 /min Dr. Mariola Magdaleno Work Phone: [facility] 03-24-2023 19:50-0400 SaO2% (BldA) [Mass fraction] 96 % Dr. Mariola Magdaleno Work Phone: [facility] 03-24-2023 19:50-0400 Systolic blood pressure 119 mm[Hg] Dr. Mariola Magdaleno Work Phone: [facility] 03-24-2023 16:03-0400 Respiratory rate 18 /min Dr. Mariola Magdaleno Work Phone: [facility] 03-24-2023 15:02-0400 Body mass index (BMI) [Ratio] 38.4 kg/m2 Dr. Mariola Magdaleno Work Phone: [facility] 03-24-2023 15:02-0400 Body weight 104.[address] Mariola Magdaleno Work Phone: [facility] 03-24-2023 14:53-0400 Inhaled oxygen flow rate 2 L/min Dr. Mariola Magdaleon Work Phone: [facility] 03-24-2023 14:10-0400 Body height 165.[address] Mariola Magdaleno Work Phone: [facility] 03-24-2023 14:10-0400 Body temperature 95.4 [degF] Dr. Mariola Magdaleno Work Phone: [facility] 02-28-2023 11:11-0400 Body height 165.[address] Mariola Magdaleno Work Phone: [facility] 02-28-2023 11:11-0400 Body mass index (BMI) [Ratio] 38.2 kg/m2 Dr. Mariola Magdaleno Work Phone: [facility] 02-28-2023 11:11-0400 Body temperature 97.9 [degF] Dr. Mariola Magdaleno Work Phone: [facility] 02-28-2023 11:11-0400 Body weight 104.[address] Mariola Magdaleno Work Phone: [facility] 02-28-2023 11:11-0400 Diastolic blood pressure 78 mm[Hg] Dr. Mariola Magdaleno Work Phone: [facility] 02-28-2023 11:11-0400 Heart rate 63 /min Dr. Mariola Magdaleno Work Phone: [facility] 02-28-2023 11:11-0400 Respiratory rate 14 /min Dr. Mariola Magdaleno Work Phone: [facility] 02-28-2023 11:11-0400 SaO2% (BldA) [Mass fraction] 95 % Dr. Mariola Magdaleno Work Phone: [facility] 02-28-2023 11:11-0400 Systolic blood pressure 120 mm[Hg] Dr. Mariola Magdaleno Work Phone: [facility] 12-28-2022 10:58-0400 Body height 165.[address] Mariola Magdaleno Work Phone: [facility] 12-28-2022 10:58-0400 Body mass index (BMI) [Ratio] 37.8 kg/m2 Dr. Mariola Magdaleno Work Phone: [facility] 12-28-2022 10:58-0400 Body temperature 95.6 [degF] Dr. Mariola Magdaleno Work Phone: [facility] 12-28-2022 10:58-0400 Body weight 103.[address] Mariola Magdaleno Work Phone: [facility] 12-28-2022 10:58-0400 Diastolic blood pressure 76 mm[Hg] Dr. Mariola Magdaleno Work Phone: [facility] 12-28-2022 10:58-0400 Heart rate 83 /min Dr. Mariola Magdaleno Work Phone: [facility] 12-28-2022 10:58-0400 Inhaled oxygen flow rate 2 L/min Dr. Mariola Magdaleno Work Phone: [facility] 12-28-2022 10:58-0400 Respiratory rate 18 /min Dr. Mariola Magdaleno Work Phone: [facility] 12-28-2022 10:58-0400 SaO2% (BldA) [Mass fraction] 96 % Dr. Mariola Magdaleno Work Phone: [facility] 12-28-2022 10:58-0400 Systolic blood pressure 114 mm[Hg] Dr. Mariola Magdaleno Work Phone: [facility] 10-28-2022 10:31-0500 Body mass index (BMI) [Ratio] 40.5 kg/m2 Dr. Mariola Magdaleno Work Phone: [facility] 10-28-2022 10:31-0500 Body weight 103.[address] Mariola Magdaleno Work Phone: [facility] 10-28-2022 10:31-0500 Diastolic blood pressure 70 mm[Hg] Dr. Mariola Magdaleno Work Phone: [facility] 10-28-2022 10:31-0500 Heart rate 73 /min Dr. Mariola Magdaleno Work Phone: [facility] 10-28-2022 10:31-0500 Inhaled oxygen flow rate 2 L/min Dr. Mariola Magdaleno Work Phone: [facility] 10-28-2022 10:31-0500 Respiratory rate 18 /min Dr. Mariola Magdaleno Work Phone: [facility] 10-28-2022 10:31-0500 SaO2% (BldA) [Mass fraction] 97 % Dr. Mariola Magdaleno Work Phone: [facility] 10-28-2022 10:31-0500 Systolic blood pressure 101 mm[Hg] Dr. Mariola Magdaleno Work Phone: [facility] 09-17-2022 14:17-0500 Body weight 113.4 kg Tara Khoury MD Work Phone: [facility] 09-17-2022 14:17-0500 SaO2% (BldA) [Mass fraction] 94 % Tara Khoruy MD Work Phone: [facility] 06-17-2022 11:01-0400 Body height 165.[address] Gregg Miller Work Phone: [facility] Work Phone: 06-17-2022 11:01-0400 Body mass index (BMI) [Ratio] 42.4 kg/m2 Dr. Gregg Miller Work Phone: [facility] Work Phone: 06-17-2022 11:01-0400 Body temperature 97.3 [degF] Dr. Gregg Miller Work Phone: [facility] Work Phone: 06-17-2022 11:01-0400 Body weight 115.[address] Gregg Miller Work Phone: [facility] Work Phone: 06-17-2022 11:01-0400 Diastolic blood pressure 64 mm[Hg] Dr. Gregg Miller Work Phone: [facility] Work Phone: 06-17-2022 11:01-0400 Heart rate 67 /min Dr. Gregg Miller Work Phone: [facility] Work Phone: 06-17-2022 11:01-0400 Inhaled oxygen flow rate 2 L/min Dr. Gregg Miller Work Phone: [facility] Work Phone: 06-17-2022 11:01-0400 Respiratory rate 22 /min Dr. Gregg Miller Work Phone: [facility] Work Phone: 06-17-2022 11:01-0400 SaO2% (BldA) [Mass fraction] 94 % Dr. Gregg Miller Work Phone: [facility] Work Phone: 06-17-2022 11:01-0400 Systolic blood pressure 98 mm[Hg] Dr. Gregg Miller Work Phone: [facility] Work Phone: 05-19-2022 10:25-0400 Body temperature 98 [degF] Dr. Gregg Miller Work Phone: [facility] Work Phone: 05-19-2022 10:25-0400 Diastolic blood pressure 56 mm[Hg] Dr. Gregg Miller Work Phone: [facility] Work Phone: 05-19-2022 10:25-0400 Heart rate 64 /min Dr. Gregg Miller Work Phone: [facility] Work Phone: 05-19-2022 10:25-0400 Inhaled oxygen flow rate 2 L/min Dr. Gregg Miller Work Phone: [facility] Work Phone: 05-19-2022 10:25-0400 Respiratory rate 16 /min Dr. Gregg Miller Work Phone: [facility] Work Phone: 05-19-2022 10:25-0400 SaO2% (BldA) [Mass fraction] 97 % Dr. Gregg Miller Work Phone: [facility] Work Phone: 05-19-2022 10:25-0400 Systolic blood pressure 108 mm[Hg] Dr. Gregg Miller Work Phone: [facility] Work Phone: 05-19-2022 08:54-0400 Body height 165.[address] Gregg Miller Work Phone: [facility] Work Phone: 05-19-2022 08:54-0400 Body mass index (BMI) [Ratio] 41.1 kg/m2 Dr. Gregg Miller Work Phone: [facility] Work Phone: 05-19-2022 08:54-0400 Body weight [address] Gregg Miller Work Phone: [facility] Work Phone: 05-14-2022 13:07-0400 Body weight 110.68 kg Tara Khoury MD Work Phone: [facility] 05-14-2022 13:07-0400 Diastolic blood pressure 57 mm[Hg] Tara Khoury MD Work Phone: [facility] 05-14-2022 13:07-0400 Heart rate 82 /min Tara Khoury MD Work Phone: [facility] 05-14-2022 13:07-0400 Respiratory rate 14 /min Tara Khoury MD Work Phone: [facility] 05-14-2022 13:07-0400 SaO2% (BldA) [Mass fraction] 95 % Tara Khoury MD Work Phone: [facility] 05-14-2022 13:07-0400 Systolic blood pressure 102 mm[Hg] Tara Khoury MD Work Phone: [facility] 05-14-2022 12:48-0400 Body height 161.9 cm Respiratory Wstr Work Phone: [facility] 05-14-2022 12:48-0400 Body weight 110.95 kg Respiratory Wstr Work Phone: [facility] 05-14-2022 12:48-0400 Heart rate 82 /min Respiratory Wstr Work Phone: [facility] 05-14-2022 12:48-0400 Respiratory rate 14 /min Respiratory Wstr Work Phone: [facility] 05-14-2022 12:48-0400 SaO2% (BldA) [Mass fraction] 95 % Respiratory Wstr Work Phone: [facility] 04-28-2022 09:06-0400 Body height 165.[address] Gregg Miller Work Phone: [facility] Work Phone: 04-28-2022 09:06-0400 Body mass index (BMI) [Ratio] 41.3 kg/m2 Dr. Gregg Miller Work Phone: [facility] Work Phone: 04-28-2022 09:06-0400 Body temperature 97.7 [degF] Dr. Gregg Miller Work Phone: [facility] Work Phone: 04-28-2022 09:06-0400 Body weight 112.[address] Gregg Miller Work Phone: [facility] Work Phone: 04-28-2022 09:06-0400 Diastolic blood pressure 69 mm[Hg] Dr. Gregg Miller Work Phone: [facility] Work Phone: 04-28-2022 09:06-0400 Heart rate 70 /min Dr. Gregg Miller Work Phone: [facility] Work Phone: 04-28-2022 09:06-0400 Respiratory rate 20 /min Dr. Gregg Miller Work Phone: [facility] Work Phone: 04-28-2022 09:06-0400 SaO2% (BldA) [Mass fraction] 97 % Dr. Gregg Miller Work Phone: [facility] Work Phone: 04-28-2022 09:06-0400 Systolic blood pressure 113 mm[Hg] Dr. Gregg Miller Work Phone: [facility] Work Phone: 04-23-2022 15:19-0400 Diastolic blood pressure 79 mm[Hg] Dr. Gregg Miller Work Phone: [facility] Work Phone: 04-23-2022 15:19-0400 Heart rate 68 /min Dr. Gregg Miller Work Phone: [facility] Work Phone: 04-23-2022 15:19-0400 Respiratory rate 17 /min Dr. Gregg Miller Work Phone: [facility] Work Phone: 04-23-2022 15:19-0400 SaO2% (BldA) [Mass fraction] 98 % Dr. Gregg Miller Work Phone: [facility] Work Phone: 04-23-2022 15:19-0400 Systolic blood pressure 118 mm[Hg] Dr. Gregg Miller Work Phone: [facility] Work Phone: 04-23-2022 14:05-0400 Inhaled oxygen flow rate 2 L/min Dr. Gregg Miller Work Phone: [facility] Work Phone: 04-23-2022 14:00-0400 Body mass index (BMI) [Ratio] 42.3 kg/m2 Dr. Gregg Miller Work Phone: [facility] Work Phone: 04-23-2022 14:00-0400 Body temperature 97.5 [degF] Dr. Gregg Miller Work Phone: [facility] Work Phone: 04-23-2022 14:00-0400 Body weight 115.[address] Gregg Miller Work Phone: [facility] Work Phone: 04-23-2022 10:26-0400 Body height 165.[address] Gregg Miller Work Phone: [facility] Work Phone: 04-23-2022 10:26-0400 Body weight 108.[address] Gregg Miller Work Phone: [facility] Work Phone: 04-22-2022 14:32-0400 Body mass index (BMI) [Ratio] 39.7 kg/m2 Dr. Gregg Miller Work Phone: [facility] Work Phone: 04-20-2022 14:59-0400 Body mass index (BMI) [Ratio] 43.9 kg/m2 Dr. Gregg Miller Work Phone: [facility] Work Phone: 04-20-2022 14:59-0400 Body temperature 97.5 [degF] Dr. Gregg Miller Work Phone: [facility] Work Phone: 04-20-2022 14:59-0400 Body weight 112.[address] Gregg Miller Work Phone: [facility] Work Phone: 04-20-2022 14:59-0400 Diastolic blood pressure 66 mm[Hg] Dr. Gregg Miller Work Phone: [facility] Work Phone: 04-20-2022 14:59-0400 Heart rate 67 /min Dr. Gregg Miller Work Phone: [facility] Work Phone: 04-20-2022 14:59-0400 Respiratory rate 18 /min Dr. Gregg Miller Work Phone: [facility] Work Phone: 04-20-2022 14:59-0400 SaO2% (BldA) [Mass fraction] 98 % Dr. Gregg Miller Work Phone: [facility] Work Phone: 07-12-2022 14:59-0400 Systolic blood pressure 112 mm[Hg] Dr. Gregg Miller Work Phone: [facility] Work Phone: 04-15-2022 09:32-0400 Body height 165.1 cm Gregg Valladarese Work Phone: [facility] Work Phone: 04-15-2022 09:32-0400 Body mass index (BMI) [Ratio] 40.94 kg/m2 Gregg Griffinaee Work Phone: [facility] Work Phone: 04-15-2022 09:32-0400 Body surface area Derived from formula 2.16 m2 Gregg Griffinaee Work Phone: [facility] Work Phone: 04-15-2022 09:32-0400 Body weight 111.59 kg Greggkory Griffinaee Work Phone: [facility] Work Phone: 04-15-2022 09:32-0400 Diastolic blood pressure 73 mm[Hg] Gregg Villaallaee Work Phone: [facility] Work Phone: 04-15-2022 09:32-0400 Heart rate 79 /min Gregg M Tavallaee Work Phone: [facility] Work Phone: 04-15-2022 09:32-0400 Respiratory rate 16 /min Gregg Jennifer Tavallaee Work Phone: [facility] Work Phone: 04-15-2022 09:32-0400 Systolic blood pressure 117 mm[Hg] Gregg M Tavallaee Work Phone: [facility] Work Phone: 04-09-2022 08:36-0400 Body height 165.[address] Gregg Miller Work Phone: [facility] Work Phone: 04-09-2022 08:36-0400 Body mass index (BMI) [Ratio] 39.7 kg/m2 Dr. Gregg Miller Work Phone: [facility] Work Phone: 04-09-2022 08:36-0400 Body weight 108.[address] Gregg Miller Work Phone: [facility] Work Phone: 04-09-2022 08:36-0400 Diastolic blood pressure 90 mm[Hg] Dr. Gregg Miller Work Phone: [facility] Work Phone: 04-09-2022 08:36-0400 Heart rate 76 /min Dr. Gregg Miller Work Phone: [facility] Work Phone: 04-09-2022 08:36-0400 Inhaled oxygen flow rate 2 L/min Dr. Gregg Miller Work Phone: [facility] Work Phone: 04-09-2022 08:36-0400 Respiratory rate 16 /min Dr. Gregg Miller Work Phone: [facility] Work Phone: 04-09-2022 08:36-0400 Systolic blood pressure 128 mm[Hg] Dr. Gregg Miller Work Phone: [facility] Work Phone: 03-30-2022 12:56-0400 Body height 165.1 cm Gregg Miller Work Phone: [facility] Work Phone: 03-30-2022 12:56-0400 Body mass index (BMI) [Ratio] 39.44 kg/m2 Greggkory Villaallaee Work Phone: [facility] Work Phone: 03-30-2022 12:56-0400 Body surface area Derived from formula 2.13 m2 Greggkory Griffinaee Work Phone: [facility] Work Phone: 03-30-2022 12:56-0400 Body weight 107.5 kg Greggkory Griffinaee Work Phone: [facility] Work Phone: 03-30-2022 12:56-0400 Diastolic blood pressure 80 mm[Hg] Gregg Griffinaee Work Phone: [facility] Work Phone: 03-30-2022 12:56-0400 Heart rate 78 /min Greggkory Griffinaee Work Phone: [facility] Work Phone: 03-30-2022 12:56-0400 SaO2% (BldA) [Mass fraction] 97 % Gregg Griffinaee Work Phone: [facility] Work Phone: 03-30-2022 12:56-0400 Systolic blood pressure 118 mm[Hg] Gregg Jennifer Tavallaee Work Phone: [facility] Work Phone: 03-20-2022 04:58-0400 Diastolic blood pressure 67 mm[Hg] [facility] Work Phone: 03-20-2022 04:58-0400 Heart rate 68 /min [facility] Work Phone: 03-20-2022 04:58-0400 Respiratory rate 20 /min [facility] Work Phone: 03-20-2022 04:58-0400 SaO2% (BldA) [Mass fraction] 98 % [facility] Work Phone: 03-20-2022 04:58-0400 Systolic blood pressure 121 mm[Hg] [facility] Work Phone: 03-20-2022 02:02-0400 Body height 165.1 cm [facility] Work Phone: 03-20-2022 02:02-0400 Body mass index (BMI) [Ratio] 39.9 kg/m2 [facility] Work Phone: 03-20-2022 02:02-0400 Body temperature 98.7 [degF] [facility] Work Phone: 03-20-2022 02:02-0400 Body weight 108.86 kg [facility] Work Phone: 03-20-2022 02:02-0400 Inhaled oxygen flow rate 2 L/min Dr. Gregg Miller Work Phone: [facility] Work Phone: 02-24-2022 12:51-0400 Body height 165.1 cm Gregg Miller Work Phone: [facility] Work Phone: 02-24-2022 12:51-0400 Body mass index (BMI) [Ratio] 39.94 kg/m2 Gregg Miller Work Phone: [facility] Work Phone: 02-24-2022 12:51-0400 Body surface area Derived from formula 2.14 m2 Gregg Miller Work Phone: [facility] Work Phone: 02-24-2022 12:51-0400 Body weight 108.86 kg Gregg Jennifer Tavallaee Work Phone: [facility] Work Phone: 02-24-2022 12:51-0400 Diastolic blood pressure 64 mm[Hg] Gregg Jennifer Tavallaee Work Phone: [facility] Work Phone: 02-24-2022 12:51-0400 Heart rate 80 /min Gregg Jennifer Tavallaee Work Phone: [facility] Work Phone: 02-24-2022 12:51-0400 Systolic blood pressure 106 mm[Hg] Gregg Jennifer Tavallaee Work Phone: [facility] Work Phone: 01-28-2022 12:01-0400 Body mass index (BMI) [Ratio] 39.94 kg/m2 Gregg Jennifer Tavallaee Work Phone: [facility] Work Phone: 01-28-2022 12:01-0400 Body surface area Derived from formula 2.14 m2 Gregg Jennifer Tavallaee Work Phone: [facility] Work Phone: 01-28-2022 12:01-0400 Body weight 108.86 kg Gregg Jennifer Tavallaee Work Phone: [facility] Work Phone: 01-28-2022 12:01-0400 Diastolic blood pressure 81 mm[Hg] Gregg Jennifer Tavallaee Work Phone: [facility] Work Phone: 01-28-2022 12:01-0400 Heart rate 72 /min Gregg M Tavallaee Work Phone: [facility] Work Phone: 01-28-2022 12:01-0400 Respiratory rate 18 /min Gregg Rodriguez Tavallaee Work Phone: [facility] Work Phone: 01-28-2022 12:01-0400 Systolic blood pressure 123 mm[Hg] Gregg Rodriguez Tavallaee Work Phone: [facility] Work Phone: 12-30-2021 11:20-0400 Body height 165.1 cm Gregg Rodriguez Tavallaee Work Phone: [facility] Work Phone: 12-30-2021 11:20-0400 Body mass index (BMI) [Ratio] 39.27 kg/m2 Gregg Rodriguez Tavallaee Work Phone: [facility] Work Phone: 12-30-2021 11:20-0400 Body surface area Derived from formula 2.12 m2 Gregg Rodriguez Tavallaee Work Phone: [facility] Work Phone: 12-30-2021 11:20-0400 Body weight 107.05 kg Gregg Rodriguez Tavallaee Work Phone: [facility] Work Phone: 12-30-2021 11:20-0400 Diastolic blood pressure 77 mm[Hg] Gregg Jennifer Tavallaee Work Phone: [facility] Work Phone: 12-30-2021 11:20-0400 Heart rate 87 /min Gregg Rodriguez Tavallaee Work Phone: [facility] Work Phone: 12-30-2021 11:20-0400 Respiratory rate 22 /min Gregg Jennifer Tavallaee Work Phone: [facility] Work Phone: 12-30-2021 11:20-0400 Systolic blood pressure 168 mm[Hg] Gregg Jennifer Tavallaee Work Phone: [facility] Work Phone: 12-02-2021 14:10-0500 Body height 165.1 cm Gregg Jennifer Tavallaee Work Phone: [facility] Work Phone: 12-02-2021 14:10-0500 Body mass index (BMI) [Ratio] 39.27 kg/m2 Gregg Jennifer Tavallaee Work Phone: [facility] Work Phone: 12-02-2021 14:10-0500 Body surface area Derived from formula 2.12 m2 Gregg Jennifer Tavallaee Work Phone: [facility] Work Phone: 12-02-2021 14:10-0500 Body temperature 96.9 [degF] Gregg Jennifer Villaallaee Work Phone: [facility] Work Phone: 12-02-2021 14:10-0500 Body weight 107.05 kg Gregg Jennifer Tavallaee Work Phone: [facility] Work Phone: 12-02-2021 14:10-0500 Diastolic blood pressure 72 mm[Hg] Gregg Jennifer Tavallaee Work Phone: [facility] Work Phone: 12-02-2021 14:10-0500 Heart rate 82 /min Gregg M Tavallaee Work Phone: [facility] Work Phone: 12-02-2021 14:10-0500 Respiratory rate 22 /min Gregg Jennifer Tavallaee Work Phone: [facility] Work Phone: 12-02-2021 14:10-0500 Systolic blood pressure 132 mm[Hg] Gregg Jennifer Tavallaee Work Phone: [facility] Work Phone: 12-02-2021 11:12-0500 Body height 165.1 cm Gregg Jennifer Tavallaee Work Phone: [facility] Work Phone: 12-02-2021 11:12-0500 Body mass index (BMI) [Ratio] 38.77 kg/m2 Gregg Jennifer Tavallaee Work Phone: [facility] Work Phone: 12-02-2021 11:12-0500 Body surface area Derived from formula 2.11 m2 Gregg Jennifer Tavallaee Work Phone: [facility] Work Phone: 12-02-2021 11:12-0500 Body weight 105.68 kg Gregg Jennifer Tavallaee Work Phone: [facility] Work Phone: 12-02-2021 11:12-0500 Diastolic blood pressure 78 mm[Hg] Gregg Jennifer Tavallaee Work Phone: [facility] Work Phone: 12-02-2021 11:12-0500 Heart rate 78 /min Gregg M Tavallaee Work Phone: [facility] Work Phone: 12-02-2021 11:12-0500 Systolic blood pressure 122 mm[Hg] Gregg M Tavallaee Work Phone: [facility] Work Phone: 11-04-2021 10:42-0500 Body height 165.1 cm Greggkory Griffinaee Work Phone: [facility] Work Phone: 11-04-2021 10:42-0500 Body mass index (BMI) [Ratio] 40.44 kg/m2 Greggkory Griffinaee Work Phone: [facility] Work Phone: 11-04-2021 10:42-0500 Body surface area Derived from formula 2.15 m2 Gregg Griffinaee Work Phone: [facility] Work Phone: 11-04-2021 10:42-0500 Body temperature 96.4 [degF] Greggkory Griffinaee Work Phone: [facility] Work Phone: 11-04-2021 10:42-0500 Body weight 110.22 kg Gregg Griffinaee Work Phone: [facility] Work Phone: 11-04-2021 10:42-0500 Diastolic blood pressure 66 mm[Hg] Gregg Griffinaee Work Phone: [facility] Work Phone: 11-04-2021 10:42-0500 Heart rate 77 /min Gregg Jennifer Villaallaee Work Phone: [facility] Work Phone: 11-04-2021 10:42-0500 Respiratory rate 16 /min Greggkory Griffinaee Work Phone: [facility] Work Phone: 11-04-2021 10:42-0500 Systolic blood pressure 124 mm[Hg] Gregg M Tavallaee Work Phone: [facility] Work Phone: 08-25-2021 12:38-0500 Body height 165.1 cm Gregg M Tavallaee Work Phone: [facility] Work Phone: 08-25-2021 12:38-0500 Body mass index (BMI) [Ratio] 43.77 kg/m2 Gregg M Tavallaee Work Phone: [facility] Work Phone: 08-25-2021 12:38-0500 Body surface area Derived from formula 2.22 m2 Gregg M Tavallaee Work Phone: [facility] Work Phone: 08-25-2021 12:38-0500 Body weight 119.3 kg Gregg M Tavallaee Work Phone: [facility] Work Phone: 08-25-2021 12:38-0500 Diastolic blood pressure 82 mm[Hg] Gregg M Tavallaee Work Phone: [facility] Work Phone: 08-25-2021 12:38-0500 Heart rate 80 /min Gregg M Tavallaee Work Phone: [facility] Work Phone: 08-25-2021 12:38-0500 Systolic blood pressure 124 mm[Hg] Gregg M Tavallaee Work Phone: [facility] Work Phone: 08-03-2021 10:29-0400 Body height 165.1 cm Gregg M Tavallaee Work Phone: [facility] Work Phone: 08-03-2021 10:29-0400 Body mass index (BMI) [Ratio] 39.27 kg/m2 Gregg Jennifer Griffinaee Work Phone: [facility] Work Phone: 08-03-2021 10:29-0400 Body surface area Derived from formula 2.12 m2 Gregg Jennifer Griffinaee Work Phone: [facility] Work Phone: 08-03-2021 10:29-0400 Body weight 107.05 kg Greggkory Griffinaee Work Phone: [facility] Work Phone: 08-03-2021 10:29-0400 Diastolic blood pressure 82 mm[Hg] Greggrandy Griffinaee Work Phone: [facility] Work Phone: 08-03-2021 10:29-0400 Heart rate 72 /min Greggkory Valladarese Work Phone: [facility] Work Phone: 08-03-2021 10:29-0400 Systolic blood pressure 132 mm[Hg] Greggpaulo Griffinaee Work Phone: [facility] Work Phone: 07-16-2021 13:28-0400 Body height 165.1 cm Gregg Jennifer Villaallaee Work Phone: [facility] Work Phone: 07-16-2021 13:28-0400 Body mass index (BMI) [Ratio] 39.27 kg/m2 Gregg Jennifer Tavallaee Work Phone: [facility] Work Phone: 07-16-2021 13:28-0400 Body surface area Derived from formula 2.12 m2 Gregg M Tavallaee Work Phone: [facility] Work Phone: 07-16-2021 13:28-0400 Body temperature 97.3 [degF] Gregg M Tavallaee Work Phone: [facility] Work Phone: 07-16-2021 13:28-0400 Body weight 107.05 kg Gregg M Tavallaee Work Phone: [facility] Work Phone: 07-16-2021 13:28-0400 Diastolic blood pressure 79 mm[Hg] Gregg M Tavallaee Work Phone: [facility] Work Phone: 07-16-2021 13:28-0400 Heart rate 80 /min Gregg M Tavallaee Work Phone: [facility] Work Phone: 07-16-2021 13:28-0400 Respiratory rate 20 /min Gregg M Tavallaee Work Phone: [facility] Work Phone: 07-16-2021 13:28-0400 Systolic blood pressure 130 mm[Hg] Gregg M Tavallaee Work Phone: [facility] Work Phone: 02-25-2021 11:02-0400 Body height 165.1 cm Gregg M Tavallaee Work Phone: [facility] Work Phone: 02-25-2021 11:02-0400 Body mass index (BMI) [Ratio] 39.11 kg/m2 Gregg M Tavallaee Work Phone: [facility] Work Phone: 02-25-2021 11:02-0400 Body surface area Derived from formula 2.12 m2 Gregg Griffinaee Work Phone: [facility] Work Phone: 02-25-2021 11:02-0400 Body weight 106.6 kg Gregg Griffinaee Work Phone: [facility] Work Phone: 02-25-2021 11:02-0400 Diastolic blood pressure 70 mm[Hg] Gregg Griffinaee Work Phone: [facility] Work Phone: 02-25-2021 11:02-0400 Heart rate 76 /min Gregg Griffinaee Work Phone: [facility] Work Phone: 02-25-2021 11:02-0400 Systolic blood pressure 128 mm[Hg] Gregg Griffinaee Work Phone: [facility] Work Phone: 07-28-2020 16:03-0400 BMI (Body Mass Index) 40.94 kg/m2 Wanda [facility] Work Phone: 07-28-2020 16:03-0400 Body weight 111.58 kg Wanda [facility] Work Phone: 07-28-2020 16:03-0400 BP Diastolic 84 mm[Hg] Wanda [facility] Work Phone: 07-28-2020 16:03-0400 BP Systolic 126 mm[Hg] Wanda [facility] Work Phone: 07-28-2020 16:03-0400 BSA (Body Surface Area) 2.16 m2 Wanda [facility] Work Phone: 07-28-2020 16:03-0400 Height 165.1 cm Wanda [facility] Work Phone: 07-28-2020 16:03-0400 Pulse (Heart Rate) 76 /min Wanda [facility] Work Phone: 07-02-2020 12:03-0400 BMI (Body Mass Index) 41.1 kg/m2 [facility] [facility] Work Phone: 07-02-2020 12:03-0400 Body Temperature 97.5 [degF] Wanda [facility] Work Phone: 07-02-2020 12:03-0400 Body weight 112.04 kg Wanda [facility] Work Phone: 07-02-2020 12:03-0400 BP Diastolic 78 mm[Hg] Wanda [facility] Work Phone: Comment on above: Location: RUE; Position: Sitting 07-02-2020 12:03-0400 BP Systolic 138 mm[Hg] Wanda [facility] Work Phone: Comment on above: Location: [place]UE; Position: Sitting 07-02-2020 12:03-0400 BSA (Body Surface Area) 2.16 m2 Wanda [facility] Work Phone: 07-02-2020 12:03-0400 Height 165.1 cm Wanda [facility] Work Phone: 07-02-2020 12:03-0400 Pulse (Heart Rate) 70 /min Wanda [facility] Work Phone: 07-02-2020 12:03-0400 Respiratory Rate 16 /min Wanda [facility] Work Phone: 05-29-2020 13:02-0400 BMI (Body Mass Index) 41.1 kg/m2 Dennis Tinsley [facility] [facility] Work Phone: 05-29-2020 13:02-0400 Body Temperature 97.7 [degF] Dennis [facility] Work Phone: 05-29-2020 13:02-0400 Body weight 112.04 kg Dennis Tinsley [facility] Work Phone: 05-29-2020 13:02-0400 BP Diastolic 75 mm[Hg] Dennis [facility] Work Phone: 05-29-2020 13:02-0400 BP Systolic 110 mm[Hg] Dennis [facility]ley [facility] Work Phone: 05-29-2020 13:02-0400 BSA (Body Surface Area) 2.16 m2 Dennis Tinsley [facility] Work Phone: 05-29-2020 13:02-0400 Height 165.1 cm Dennis Tinsley [facility] Work Phone: 05-29-2020 13:02-0400 Pulse (Heart Rate) 72 /min Dennis Tinsley [facility] Work Phone: 05-29-2020 13:02-0400 Respiratory Rate 16 /min Dennis Tinsley [facility] Work Phone: 05-01-2020 11:42-0400 BMI (Body Mass Index) 40.94 kg/m2 Dennis Tinsley [facility] Work Phone: 05-01-2020 11:42-0400 Body Temperature 97.6 [degF] Dennis Tinsley [facility] Work Phone: 05-01-2020 11:42-0400 Body weight 111.6 kg Dennis Tinsley [facility] Work Phone: 05-01-2020 11:42-0400 BP Diastolic 70 mm[Hg] Dennis Tinsley [facility] Work Phone: 05-01-2020 11:42-0400 BP Systolic 112 mm[Hg] Dennis [facility] Work Phone: 05-01-2020 11:42-0400 BSA (Body Surface Area) 2.16 m2 Dennis Tinsley [facility] Work Phone: 05-01-2020 11:42-0400 Height 165.1 cm Dennis Tinsley [facility] Work Phone: 05-01-2020 11:42-0400 Pulse (Heart Rate) 75 /min Dennis Tinsley [facility] Work Phone: 05-01-2020 11:42-0400 Respiratory Rate 16 /min Dennis Tinsley [facility] Work Phone: 03-26-2020 15:01-0400 BMI (Body Mass Index) 40.5 kg/m2 Dennis Tinsley [facility] 300 Work Phone: 03-26-2020 15:01-0400 Body Temperature 97.5 [degF] Dennis Tinsley [facility] 300 Work Phone: 03-26-2020 15:01-0400 Body weight 110.39 kg Dennis Tinsley [facility] 300 Work Phone: 03-26-2020 15:01-0400 BP Diastolic 72 mm[Hg] Dennis Tinsley [facility] 300 Work Phone: 03-26-2020 15:01-0400 BP Systolic 120 mm[Hg] Dennis Tinsley [facility] 300 Work Phone: 03-26-2020 15:01-0400 BSA (Body Surface Area) 2.15 m2 Dennis Tinsley [facility] 300 Work Phone: 03-26-2020 15:01-0400 Height 165.1 cm Dennis Tinsley [facility] 300 Work Phone: 03-26-2020 15:01-0400 Pulse (Heart Rate) 72 /min Dennis Tinsley [facility] 300 Work Phone: 03-26-2020 15:01-0400 Pulse Oximetry 97 % Dennis Tinsley [facility] 300 Work Phone: 03-26-2020 15:01-0400 Respiratory Rate 16 /min Dennis Tinsley [facility] 300 Work Phone: 03-26-2020 11:55-0400 BMI (Body Mass Index) 40.54 kg/m2 Dennisgarret Tinsley [facility] 300 Work Phone: 03-26-2020 11:55-0400 Body Temperature 98.4 [degF] [facility] 300 Work Phone: 03-26-2020 11:55-0400 Body weight 110.5 kg Dennis Tinsley [facility] 300 Work Phone: 03-26-2020 11:55-0400 BP Diastolic 73 mm[Hg] Dennis Tinsley [facility] 300 Work Phone: 03-26-2020 11:55-0400 BP Systolic 142 mm[Hg] Dennisagrret Tinsley [facility] 300 Work Phone: 03-26-2020 11:55-0400 BSA (Body Surface Area) 2.15 m2 Dennis Tinsley [facility] 300 Work Phone: 03-26-2020 11:55-0400 Height 165.1 cm Dennis Tinsley [facility] 300 Work Phone: 03-26-2020 11:55-0400 Pulse (Heart Rate) 73 /min Dennis Tinsley [facility] 300 Work Phone: 03-26-2020 11:55-0400 Respiratory Rate 18 /min Dennis Tinsley [facility] 300 Work Phone: 03-04-2020 13:59-0400 BMI (Body Mass Index) 40.44 kg/m2 Dennis Tinsley [facility] 300 Work Phone: 03-04-2020 13:59-0400 Body weight 110.22 kg Dennis Tinsley [facility] 300 Work Phone: 03-04-2020 13:59-0400 BP Diastolic 74 mm[Hg] Dennis Tinsley [facility] 300 Work Phone: 03-04-2020 13:59-0400 BP Systolic 118 mm[Hg] Dennis Tinsley [facility] 300 Work Phone: 03-04-2020 13:59-0400 BSA (Body Surface Area) 2.15 m2 Dennis Tinsley [facility] 300 Work Phone: 03-04-2020 13:59-0400 Height 165.1 cm Dennis Tinsley [facility] 300 Work Phone: 03-04-2020 13:59-0400 Pulse (Heart Rate) 68 /min Dennis Tinsley [facility] 300 Work Phone: 09-06-2017 10:06-0500 BMI (Body Mass Index) 44.6 kg/m2 [facility] Work Phone: 09-06-2017 10:06-0500 Height 165.1 cm [facility] Work Phone: 09-06-2017 10:06-0500 Weight 121.56 kg Alexandru Weiner [facility] Work Phone: 07-21-2017 09:58-0400 BMI (Body Mass Index) 44.6 kg/m2 Alexandru Weiner [facility] Work Phone: 07-21-2017 09:58-0400 BP Diastolic 74 mm[Hg] Alexandru Weiner [facility] Work Phone: 07-21-2017 09:58-0400 BP Systolic 113 mm[Hg] Alexandru Weiner [facility] Work Phone: 07-21-2017 09:58-0400 Height 165.1 cm Alexandru Weiner [facility] Work Phone: 07-21-2017 09:58-0400 Pulse (Heart Rate) 77 /min Alexandru Weiner [facility] Work Phone: 07-21-2017 09:58-0400 Weight 121.56 kg Alexandru Weiner [facility] Work Phone: Encounters Encounter Date Encounter Type Care Provider Facility Start: 02-05-2025 ambulatory Mariolaiona Streeterlay Facility :[facility] Start: 01-03-2025 ambulatory Mariola Bluffton Facility :[facility] Start: 01-02-2025 Non-patient / Non-visit Dr. Tish Morales [facility] Work Phone: Start: 01-01-2025 ambulatory Sunil Mckeon ty:[facility] Start: 01-01-2025 End: 01-02-2025 Evaluation and management of inpatient Dr. Sunil Muir DO -Medical Surgical 3 Work Phone: Start: 12-17-2024 End: 12-17-2024 ambulatory MARIOLA G SHARLA Facility:[facility] Start: 12-17-2024 End: 12-17-2024 Patient encounter procedure Tara Khoury MD Work Phone: Pulmonary Medicine Comment on above: Asthma-COPD overlap syndrome (HCC) (Primary Dx); History of tracheostomy; Chronic hypoxemic respiratory failure (HCC); Class 2 obesity Start: 10-23-2024 End: 10-26-2024 Telephone encounter Tara Khoury MD Work Phone: Pulmonary Medicine Comment on above: Orders Start: 07-06-2024 End: 07-06-2024 ambulatory Rafal ALVARADO Facility:[facility] Start: 07-06-2024 End: 07-06-2024 ambulatory Mariola Magdaleno Facility:[facility] Start: 06-18-2024 End: 06-18-2024 ambulatory Pulm Lab [facility] Work Phone: PULM [facility] Comment on above: Spirometry Start: 06-18-2024 End: 06-18-2024 Patient encounter procedure [facility] Work Phone: [facility] Comment on above: Asthma-COPD overlap syndrome (HCC) (Primary Dx); Chronic hypoxemic respiratory failure (HCC); History of tracheostomy; Class 2 obesity; Former cigarette smoker Start: 05-02-2024 End: 05-02-2024 ambulatory Shakira Christianson NP Facility:[facility] Start: 03-13-2024 End: 03-13-2024 ambulatory Mariola Magdaleno Facility:[facility] Start: 01-20-2024 End: 01-20-[address] Mariola Magdaleno Work Phone: [facility] Work Phone: Start: 01-20-2024 End: 01-20-[address] Mariola Magdaleno Work Phone: [facility]-Outpatient Breast Imaging Work Phone: Start: 01-05-2024 End: 01-05-[address] Mariola Magdaleno Work Phone: [facility] Work Phone: Start: 01-05-2024 End: 01-05-[address] Mariola Magdaleno Work Phone: [facility]-Laboratory Work Phone: Start: 01-02-2024 End: 01-02-[address] Mariola Magdaleno Work Phone: [facility] Work Phone: Start: 12-09-2023 End: 12-09-2023 Patient encounter procedure Tara Khoury MD Work Phone: Pulmonary Medicine Comment on above: Asthma-COPD overlap syndrome (HCC) (Primary Dx); Chronic hypoxemic respiratory failure (HCC); Obesity, Class II, BMI 35-39.9; Former cigarette smoker Start: 11-08-2023 End: 11-08-[address] Mariola Magdaleno Work Phone: [facility] Work Phone: Start: 09-19-2023 Telephone encounter Rachel Thompson Start: 09-19-2023 End: 09-19-2023 Office outpatient visit 25 minutes Amy Yu PA-C Work Phone: Pulmonary Medicine Comment on above: Asthma-COPD overlap syndrome (Primary Dx); Morbid obesity (HCC); Former cigarette smoker; History of tracheostomy; Seasonal allergies; Chronic hypoxemic respiratory failure (HCC) Start: 08-14-2023 Refill Tara Khoury MD Work Phone: Pulmonary Medicine Comment on above: Refill Request Start: 06-01-2023 End: 06-01-2023 Patient encounter procedure Amy Yu PA-C Work Phone: Pulmonary Medicine Comment on above: Pneumonia of both [place] ngs due to infectious organism, unspecified part of lung (Primary Dx); Asthma-COPD overlap syndrome (HCC); Morbid obesity (HCC); Former cigarette smoker; History of tracheostomy; Chronic hypoxemic respiratory failure (HCC) Start: 04-01-2023 End: 04-01-2023 Patient encounter procedure Amy Yu PA-C Work Phone: Pulmonary Medicine Comment on above: Pneumonia of both [place] ngs due to infectious organism, unspecified part of lung (Primary Dx); Asthma-COPD overlap syndrome (HCC); Post-nasal drip; Seasonal allergies Start: 03-24-2023 End: 03-24-2023 Emergency department patient visit Dr. Mariola Magdaleno Work Phone: [facility]-Emergency Department Start: 03-24-2023 Telephone encounter Amy Yu PA-C Work Phone: Pulmonary Medicine Comment on above: Patient Question (Lo w BP) Start: 02-28-2023 End: 02-28-[address] Mariola Magdaleno Work Phone: [facility] Work Phone: Start: 02-28-2023 End: 02-28-[address] Mariola Magdaleno Work Phone: [facility]-Radiology, [facility] Start: 02-28-2023 End: 02-28-[address] Mariola Magdaleno Work Phone: [facility] Start: 02-01-2023 End: 02-01-[address] Mariola Magdaleno Work Phone: [facility]Laboratory Start: 12-31-2022 End: 12-31-[address] Mariola Magdaleno Work Phone: [facility] Work Phone: Start: 12-31-2022 End: 12-31-[address] Mariola Magdaelno Work Phone: [facility]-Laboratory Start: 12-28-2022 End: 12-28-[address] Mariola Magdaleno Work Phone: [facility] Internal Medicine Start: 11-30-2022 AUDIT Gregg galloway Work Phone: [facility] Work Phone: Start: 01-25-[address] Mariola Magdaleno Work Phone: [facility]-Cardiovascula r Services Start: 10-28-2022 End: 10-28-[address] Mariola Magdaleno Work Phone: [facility] Start: 10-12-2022 AUDIT Gregg galloway Work Phone: [facility] Work Phone: Start: 09-17-2022 End: 09-17-2022 Patient encounter procedure Tara Khoury MD Work Phone: Pulmonary Medicine Comment on above: Asthma-COPD overlap syndrome (HCC) (Primary Dx); Chronic hypoxemic respiratory failure (HCC); Former cigarette smoker; Morbid obesity (HCC) Start: 09-16-2022 End: 09-16-[address] Mariola Magdaleno Work Phone: [facility]opa[facility] Start: 09-06-2022 AUDIT Gregg galloway Work Phone: [facility] Work Phone: Start: 08-16-2022 End: 08-16-[address] Mariola Magdaleno Work Phone: [facility] Start: 07-26-2022 End: 07-26-[address] Mariola Magdaleno Work Phone: [facility] Start: 07-15-2022 End: 07-15-[address] Mariola Magdaleno Work Phone: [facility] Work Phone: Start: 07-15-2022 End: 07-15-[address] Mariola Magdaleno Work Phone: [facility]-Physical Therapy Start: 07-13-[address] Lian Miller Work Phone: [facility]Physical Therapy Start: 07-12-2022 End: 07-12-[address] Gregg Miller Work Phone: [facility] Work Phone: Start: 07-12-2022 End: 07-12-[address] Gregg Miller Work Phone: [facility] Start: 06-28-2022 End: 06-28-[address] Gregg Miller Work Phone: [facility] Start: 06-23-2022 AUDIT Gregg galloway Work Phone: [facility] Work Phone: Start: 06-17-2022 End: 06-17-[address] Gregg Miller Work Phone: [facility] Work Phone: Start: 06-17-2022 End: 06-17-[address] Gregg Miller Work Phone: [facility] Start: 06-15-2022 AUDIT Gregg galloway Work Phone: [facility] Work Phone: Start: 06-10-2022 End: 06-10-[address] Gregg Miller Work Phone: [facility] Start: 06-08-[address] [facility] Start: 05-19-2022 Non-patient / Non-visit Dr. Me kory Miller Work Phone: [facility] Start: 05-19-2022 End: 05-19-2022 Admission to same day surgery center Dr. Gregg Miller Work Phone: [facility]-Endoscopy Start: 05-14-2022 End: 05-14-2022 ambulatory Respiratory Therapist [facility] Work Phone: Pulmonary Medicine Comment on above: Spirometry Start: 05-14-2022 End: 05-14-2022 Patient encounter procedure Respiratory Therapist [facility] Work Phone: [facility] Comment on above: Chronic obstructive pulmonary disease, unspecified COPD type (HCC) (Primary Dx); Chronic hypoxemic respiratory failure (HCC); History of tracheostomy; Former cigarette smoker; Morbid obesity (HCC) Start: 05-13-2022 Chart abstracting Nurse Carter Cheung [facility] Work Phone: Pulmonary Medicine Start: 05-07-2022 End: 05-07-[address] [facility] Start: 04-28-2022 End: 04-28-[address] Gregg Miller Work Phone: [facility] Start: 04-23-2022 End: 04-23-2022 Emergency department patient visit Dr. Gregg Miller Work Phone: [facility]-Emergency Department Start: 04-23-2022 End: 04-23-2022 Admission to same day surgery center Dr. Gregg Miller Work Phone: [facility]-Social Media Sr Strategy Manager/Special Procedures Start: 04-20-2022 End: 04-20-[address] Gregg Miller Work Phone: [facility] Start: 04-15-2022 Patient encounter procedure Gregg Miller Work Phone: [facility] Work Phone: Start: 04-15-2022 ambulatory Gregg Miller Facil [id number] Start: 04-09-2022 End: 04-09-[address] Gregg Miller Work Phone: [facility] Start: 04-02-2022 Non-patient / Non-visit Dr. Me kory Miller Work Phone: [facility] Start: 03-31-2022 AUDIT Gregg Galvan llemree Work Phone: [facility] Work Phone: Start: 03-30-2022 Office outpatient vi sit 25 minutes Gregg Miller Work Phone: [facility] Work Phone: Start: 03-20-2022 End: 03-20-2022 Emergency department patient visit [facility] Start: 03-18-2022 AUDIT Gregg galloway Work Phone: [facility] Work Phone: Start: 03-12-2022 [facility], Provider: Mello Pinedo, Status: Pen, Time: 2:15 PM Gregg Miller Work Phone: [facility] Work Phone: Start: 03-12-2022 End: 03-12-[address] Mello Pinedo Facility:[id number] Start: 03-11-2022 Chart Update Gregg galloway Work Phone: [facility] Work Phone: Start: 03-04-2022 AUDIT Gregg Galvan llaee Work Phone: [facility] Work Phone: Start: 03-02-2022 Chart Update Gregg Jennifer Tava llaee Work Phone: [facility] Work Phone: Start: 02-24-2022 Office outpatient vi sit 15 minutes Gregg M Tavallaee Work Phone: [facility] Work Phone: Start: 02-17-2022 Office outpatient vi sit 25 minutes Gregg M Tavallaee Work Phone: [facility] Work Phone: Start: 02-11-2022 Chart Update Gregg Jennifer Tava llaee Work Phone: [facility] Work Phone: Start: 02-09-2022 Office outpatient vi sit 25 minutes Gregg M Tavallaee Work Phone: [facility] Work Phone: Start: 01-28-2022 ambulatory WANDA JOVEL [facility] Facility:[id number] Start: 01-28-2022 Patient encounter procedure Gregg M Tavallaee Work Phone: [facility] Work Phone: Start: 12-30-2021 Patient encounter procedure Gregg M Tavallaee Work Phone: [facility] Work Phone: Start: 12-04-2021 [facility], Provider: Mello Pinedo, Status: Pen, Time: 1:15 PM Gregg M Tavallaee Work Phone: [facility] Work Phone: Start: 12-02-2021 Office outpatient vi sit 25 minutes Gregg M Tavallaee Work Phone: [facility] Work Phone: Start: 12-02-2021 Patient encounter procedure Gregg M Tavallaee Work Phone: [facility] Work Phone: Start: 11-26-2021 Chart Update Gregg M Tava llaee Work Phone: [facility] Work Phone: Start: 11-06-2021 AUDIT Gregg Jennifer Tava llaee Work Phone: [facility] Work Phone: Start: 11-04-2021 FUV, Provider: Wanda Simpson, Status: Pen, Time: 10:15 AM Gregg Jennifer Tavallaee Work Phone: [facility] Medicine Work Phone: Start: 11-04-2021 Patient encounter procedure Gregg Jennifer Tavallaee Work Phone: [facility] Work Phone: Start: 11-03-2021 AUDIT Gregg Jennifer Tava llaee Work Phone: [facility] Work Phone: Start: 10-29-2021 Chart Update Gregg Jennifer Tava llaee Work Phone: [facility] Work Phone: Start: 10-19-2021 Office outpatient vi sit 25 minutes Gregg M Tavallaee Work Phone: [facility] Work Phone: Start: 10-19-2021 [facility]IR[facility], Provider : Gregg Miller, Status: Pen, Time: 11:45 AM Gregg Villaallaee Work Phone: [facility] Work Phone: Start: 10-15-2021 COLON, Provider: Gregg Miller, Status: Pen, Time: 11:30 AM Gregg M Tavallaee Work Phone: [facility] Work Phone: Start: 10-13-2021 AUDIT Gregg Jennifer Tava llaee Work Phone: [facility] Work Phone: Start: 10-13-2021 Chart Update Gregg Jennifer Tava llaee Work Phone: [facility] Work Phone: Start: 09-21-2021 Chart Update Gregg Jennifer Tava llaee Work Phone: [facility] Work Phone: Start: 09-16-2021 Chart Update Gregg Jennifer Tava llaee Work Phone: [facility] Work Phone: Start: 09-16-2021 AUDIT Gregg Jennifer Tava llaee Work Phone: [facility] Work Phone: Start: 09-15-2021 Office outpatient vi sit 25 minutes Gregg Jennifer Tavallaee Work Phone: [facility] Work Phone: Start: 09-10-2021 Chart Update Gregg Jennifer Tava llaee Work Phone: [facility] Work Phone: Start: 09-08-2021 Office outpatient vi sit 25 minutes Gregg Jennifer Tavallaee Work Phone: [facility] Work Phone: Start: 08-30-2021 Chart Update Gregg Jennifer Tava llaee Work Phone: [facility] Work Phone: Start: 08-26-2021 AUDIT Gregg Jennifer Tava llaee Work Phone: [facility] Work Phone: Start: 08-25-2021 Chart Update Gregg Jennifer Tava llaee Work Phone: [facility] Work Phone: Start: 08-25-2021 Office outpatient vi sit 25 minutes Gregg Jennifer Tavallaee Work Phone: [facility] Work Phone: Start: 08-13-2021 Chart Update Gregg Jennifer Tava llaee Work Phone: [facility] Work Phone: Start: 08-11-2021 Phys/qhp telephone evaluation 11-20 min Gregg Jennifer Villaallaee Work Phone: [facility] Work Phone: Start: 08-03-2021 Office outpatient vi sit 25 minutes Gregg Jennifer Tavallaee Work Phone: [facility] Work Phone: Start: 08-03-2021 Patient encounter procedure Gregg Jennifer Tavallaee Work Phone: [facility] Work Phone: Start: 07-16-2021 Chart Update Gregg Jennifer Tava llaee Work Phone: [facility] Work Phone: Start: 07-16-2021 Patient encounter procedure Gregg Jennifer Tavallaee Work Phone: [facility] Work Phone: Start: 04-23-2021 AUDIT Gregg Jennifer Tava llaee Work Phone: [facility] Work Phone: Start: 03-26-2021 AUDIT Gregg Jennifer Tava llaee Work Phone: [facility] [facility] Work Phone: Start: 02-25-2021 Office outpatient vi sit 25 minutes Gregg Miller Work Phone: [facility] Work Phone: Start: 11-15-2020 End: 11-15-2020 Orders Only Mari Anna Work Phone: [facility] Start: 07-28-2020 Patient encounter procedure Wanda Simpson [facility] Work Phone: Start: 07-02-2020 Patient encounter procedure Wanda Simpson [facility] Work Phone: Start: 06-04-2020 Patient encounter procedure Wanda Simpson [facility] Work Phone: Start: 05-29-2020 Patient encounter procedure Dennis Tinsley [facility] Work Phone: Start: 05-01-2020 Patient encounter procedure Dennis Tinsley [facility] Work Phone: Start: 03-26-2020 Patient encounter procedure Dennis Tinsley [facility] Work Phone: Start: 03-04-2020 Patient encounter procedure Dennis Tinsley [facility] Work Phone: Start: 02-25-2020 Patient encounter procedure Dennis Tinsley [facility] 300 Work Phone: Start: 01-03-2020 Patient encounter procedure Dennis Tinsley [facility] 300 Work Phone: Start: 12-20-2019 Patient encounter procedure Dennis Tinsley [facility] 300 Work Phone: Start: 11-26-2019 Patient encounter procedure Dennis Tinsley [facility] 300 Work Phone: Start: 11-01-2019 Patient encounter procedure Dennis Tinsley [facility] 300 Work Phone: Start: 09-13-2019 [facility] Work Phone: Start: 09-04-2019 Patient encounter procedure [facility] Work Phone: Start: 07-24-2019 [facility] Work Phone: Start: 03-21-2019 End: 03-21-2019 Office outpatient visit 10 minutes Alexandruadam Weiner Work Phone: [facility] Comment on above: Status post total bi lateral knee replacement (Primary Dx) Start: 11-21-2018 End: 11-21-2018 Postop follow up visit related to original px Alexandru Weiner Work Phone: [facility] Comment on above: Status post total bi lateral knee replacement (Primary Dx) Start: 10-24-2018 End: 10-24-2018 Patient encounter procedure ALEXANDRU WEINER [facility] Start: 10-24-2018 End: 10-24-2018 Postop follow up visit related to original px Alexandru Weiner Work Phone: [facility] Comment on above: Status post total bi lateral knee replacement (Primary Dx) Start: 10-11-2018 Patient encounter procedure ALEXANDRU WEINER [facility] Start: 10-09-2018 End: 10-13-2018 Patient encounter procedure ALEXANDRU WEINER [facility] Start: 10-05-2018 End: 10-05-2018 Patient encounter procedure ALEXANDRU WEINER [facility] Start: 09-12-2018 End: 09-12-2018 Patient encounter procedure ALEXANDRU WEINER [facility] Start: 01-31-2018 End: 01-31-2018 Patient encounter procedure ALEXANDRU WEINER [facility] Start: 01-31-2018 End: 01-31-2018 Patient encounter Alexandru Weiner Work Phone: [facility] Start: 09-06-2017 Patient encounter Alexandru Weiner Work Phone: [facility] Start: 07-21-2017 Office outpatient ne w 30 minutes Gregg Miller Work Phone: [facility] Patient encounter status Gregg Miller Work Phone: [facility] Work Phone: Procedures Date Procedure Procedure Detail Performing Clinician Start: 01-01-2025 X-ray of chest, PA and lateral views Dr. Mariola Magdaleno MD Work Phone: Start: 01-01-2025 SARS-CoV-2, Influenza & RSV (PCR) Dr. Cecilia TAO Work Phone: Start: 06-18-2024 Nitric oxide gas determination Tara Khoury MD Work Phone: Start: 06-18-2024 Brncdilat rspse spmtry pre&post-brncdilat admn Tara Khoury MD Work Phone: Start: 01-20-[address] Mariola Magdaleno Work Phone: Start: 03-24-2023 CT angiography of chest with contrast Dr. Mariola Magdaleno Work Phone: Start: 03-24-2023 Plain chest X-ray Dr. Mariola Magdaleno Work Phone: Start: 02-28-2023 Plain chest X-ray Dr. Mariola Magdaleno Work Phone: Start: 07-12-2022 X-ray of lumbar spine, two or three views Dr. Gregg Miller Work Phone: Start: 05-19-[address] Gregg Miller Work Phone: Start: 05-14-2022 End: 12-17-2024 H/O: tracheostomy History of tracheostomy Tara Khoury MD Work Phone: Start: 05-14-2022 Brncdilat rspse spmtry pre&post-brncdilat admn Tara Khoury MD Work Phone: Start: 05-07-[address] Gregg Miller Work Phone: Start: 04-23-2022 CT of head without contrast Dr. Gregg Miller Work Phone: Start: 03-20-2022 Plain chest X-ray Start: 03-12-2022 Injection of steroid into joint Gregg Miller Work Phone: Comment on above: Bilat SIJ & Rt Trapezius TPI; Bilat SIJ & Rt Trape zius TPI, 0% relief for SIJ. 80% releif from Trapezius TPI.; Start: 12-07-2021 Destructive procedure Gregg Valladarese Work Phone: Comment on above: Bilat L4-S1 RFA; Start: 11-20-2021 Epidural steroid injection Gregg Griffinaee Work Phone: Comment on above: L5-S1 JENNIFER; Start: 10-15-2021 End: 10-15-2021 Colonoscopy Gregg Griffinaee Work Phone: Start: 10-15-2021 Colonoscopy Gregg Griffinaee Work Phone: Start: 07-31-2021 Epidural steroid injection Gregg Griffinaee Work Phone: Comment on above: C7-T1 JENNIFER; C7-T1 JENNIFER 90% relief ; Start: 07-16-2021 Lipid 1996 panel - Serum or Plasma Pulm Wstr Work Phone: Start: 02-03-2021 Echocardiography Gregg Griffinaee Work Phone: Start: 08-13-2020 Destructive procedure Gregg Griffinaee Work Phone: Comment on above: Bilat L3-S1 Facet RFA; Start: 07-28-2020 Assay of folic acid serum Wanda Patrizia cohen Start: 07-28-2020 Blood count complete auto&auto difrntl wbc Wanda Simpson Start: 07-28-2020 Cyanocobalamin vitamin b-12 Wanda adams Start: 07-28-2020 Holter Monitor 3-14 Days Wanda Simpson Start: 07-28-2020 Xray Bone Density, Dexa 1 or More Sites Wanda Simpson Start: 06-11-2020 Epidural steroid injection Gregg Miller Work Phone: Comment on above: C6-7 JENNIFER, 40% relief; Start: 05-29-2020 Mri spinal canal cervical w/o contrast matrl Dennis Tinsley Start: 03-27-2020 Albumin, Urine Spot Dennis Tinsley Start: 03-27-2020 Comprehensive metabolic 2000 panel Frederick Tinsley Start: 03-27-2020 Hemoglobin glycosylated a1c Dennis Zimmer er Start: 03-20-2020 Intra-articular injection Gregg Miller Work Phone: Comment on above: Right Acromioclavicular Joint inj with u ltrasound; Start: 12-26-2019 Intra-articular injection Gregg Miller Work Phone: Comment on above: Bilat SIJ injection, 95% relief x1 week; Start: 08-15-2019 Destructive procedure Gregg Miller Work Phone: Comment on above: Bilat L3-S1 RFA; Start: 11-21-2018 Radiologic exam knee complete 4/more views Alexandru Weiner Work Phone: Start: 10-24-2018 End: 10-24-2018 X-ray of left knee Alexandru Stef Weiner Work Phone: Arthroplasty of knee Dennis Tinsley Closure of tracheostomy Donato Tinsley Colonoscopy Dennis Tinsley End: 08-15-2019 Destructive procedure Dennis Tinsley Dilation and curettage Frederick Tinsley End: 06-11-2020 Epidural steroid injection Wanda Frances edwards H/O: surgery History of thumb surgery Dr. Gregg Miller Work Phone: H/O: tracheostomy History of tracheostomy Amy Yu PA-C Work Phone: H/O: tracheostomy History of tracheostomy Amy Yu PA-C Work Phone: H/O: tracheostomy History of tracheostomy Tara Khoury MD Work Phone: H/O: tracheostomy History of tracheostomy Tara Khoury MD Work Phone: Hysterectomy Dennis Tinsley Incision of trachea Dennis villareal End: 12-26-2019 Intra-articular injection Dennis Tinsley End: 03-20-2020 Intra-articular injection Dennis Tinsley Repair of umbilical hernia Thor Tinsley SARS-CoV-2 & FLU Antigen (Rapid) Dr. Mariola Magdaleno Work Phone: Tonsillectomy Dennis Tinsley Plan of Treatment Date Care Activity Detail Author Start: 04-20-2032 Urine microalbumin profile DTaP,Tdap,Td Vaccine (2 - Td or Tdap) [facility] Start: 07-16-2026 Lipid panel Lipid Screening [facility] Start: 06-25-2025 End: 06-25-2025 Patient encounter procedure 06/25/2025 11:45 AM EDT Office Visit Pulmonary Medicine [address] [place] [address] Tara Khoury MD [address] [place] [address] 6 month f/u Pulmonary Medicine Comment on above: 6 month f/u Start: 01-03-2025 Serum inorganic phosphate measurement [facility] Start: 01-02-2025 [facility] Start: 01-02-2025 Speech therapy assessment [facility] Start: 01-02-2025 Patient discharge [facility] Start: 01-02-2025 Bacteria identified in Sputum by Culture [facility] Start: 01-02-2025 Physiotherapy of chest [facility] Start: 01-02-2025 Inhalation therapy procedure [facility] Start: 01-01-2025 Application of intermittent pneumatic compression device [facility] Start: 01-01-2025 Vitamin D, 1,25-dihydroxy measurement [facility] Start: 01-01-2025 Assessment of risk o f venous thromboembolism [facility] Start: 01-01-2025 Care regimes management [facility] Start: 01-01-2025 Continuous positive airway pressure ventilation treatment [facility] Start: 01-01-2025 Incentive spirometry [facility] Start: 01-01-2025 Insertion of cathete r into peripheral vein [facility] Start: 01-01-2025 Measuring intake and output [facility] Start: 01-01-2025 Notification of physician [facility] Start: 01-01-2025 Oxygen therapy [facility] Start: 01-01-2025 Providing care accor ding to standard [facility] Start: 01-01-2025 Provision of activit y privileges [facility] Start: 01-01-2025 Referral to occupati onal therapist [facility] Start: 01-01-2025 Referral to service [facility] Start: 01-01-2025 Respiratory secretio n precautions [facility] Start: 01-01-2025 End: 01-01-2025 [facility] Start: 01-01-2025 Following clinical pathway protocol [facility] Start: 01-01-2025 Verification routine [facility] Start: 01-01-2025 Admission procedure [facility] Start: 01-01-2025 Hospital admission, emergency, from emergency room, medical nature [facility] Start: 01-01-2025 End: 01-01-2025 [facility] Start: 01-01-2025 Bacteria identified in Blood by Culture Blood Culture [facility] Start: 01-01-2025 Bacteria identified in Urine by Culture Urine Culture [facility] Start: 01-01-2025 Consultation [facility] Start: 01-01-2025 Patient referral to dietitian [facility] Start: 12-17-2024 End: 12-17-2024 Patient encounter procedure 12/17/2024 11:45 AM EDT Office Visit Pulmonary Medicine [address] [place] [address] Tara Khoury MD [address] [place] [address] 6 month follow up Pulmonary Medicine Comment on above: 6 month follow up Start: 10-10-2024 Advance Directive Discussion Advance Directive Discussion [facility] Start: 06-10-2024 Covid-19 Vaccine () Covid-19 Vaccine () [facility] Start: 06-10-2024 Covid-19 Vaccine () Covid-19 Vaccine () [facility] Start: 06-10-2024 Influenza vaccination Influenza Vacc ine (#1) [facility] Start: 2024 RSV Vaccine (1 - 1-d ose 75+ series) RSV Vaccine (1 - 1-dose 75+ series) [facility] Start: 10-10-2023 Advance Directive Discussion Advance Directive Discussion [facility] Start: 10-10-2023 Depression Assessment Depression Ass essment [facility] Start: 06-10-2023 Covid-19 Vaccine () Covid-19 Vaccine () [facility] Start: 06-10-2023 Influenza vaccination [facility] Start: 05-24-2023 End: 04-30-2024 Ct thorax w/o contrast material CT CHEST WO IVCON Radiology Routine Pneumonia of both lungs due to infectious organism, unspecified part of lung Expected: 05/24/2023, Expires: 04/30/2024 [facility] Work Phone: Comment on above: Expected: 05/24/2023 , Expires: 04/30/2024 Start: 04-01-2023 End: 06-01-2023 IgE [Units/volume] in Serum or Plasma [facility] Work Phone: Comment on above: Expected: 04/01/2023 , Expires: 06/01/2023 Start: 03-27-2023 DIABETES SCREEN DIABETES SCREEN [facility] Start: 03-27-2023 Diabetes Screening Diabetes Screenin g [facility] Start: 12-28-2022 Patient referral [facility] Work Phone: Start: 12-08-2022 COVID-19 VACCINE (3 - Additional dose for Carlos Manuel series) COVID-19 VACCINE (3 - Additional dose for Carlos Manuel series) [facility] Start: 10-15-2022 Screening for malign ant neoplasm of colon [facility] Start: 10-10-2022 ADVANCE DIRECTIVE DISCUSSION ADVANCE DIRECTIVE DISCUSSION [facility] Start: 10-10-2022 DEPRESSION ASSESSMENT DEPRESSION ASS ESSMENT [facility] Start: 09-17-2022 Patient referral [facility] Work Phone: Start: 06-10-2022 Influenza vaccination INFLUENZA (#1) [facility] Start: 05-19-2022 Egd transoral biopsy single/multiple EGD BIOPSY SINGLE/MULTIPLE [facility] Work Phone: Start: 05-19-2022 Patient discharge [facility] Work Phone: Start: 04-23-2022 Emergency department visit low/moder severity EMERGENCY DEPT VISIT [facility] Work Phone: Start: 04-20-2022 Patient referral [facility] Work Phone: Start: 04-15-2022 FUV, Provider: Wanda Simpson, Status: Pen, Time: 9:15 AM V, Provider: Wanda Simpson, Status: Pen, Time: 9:15 AM [facility] Work Phone: Start: 03-30-2022 FUV, Provider: Gregg Miller, Status: Pen, Time: 12:45 PM FUV, Provider: Gregg Miller, Status: Pen, Time: 12:45 PM [facility] Work Phone: Start: 03-20-2022 [facility] Work Phone: Start: 03-19-2022 [facility] Provider: Mello Pinedo, Status: Pen, Time: 8:15 AM [facility], Provider: Mello Pinedo, Status: Pen, Time: 8:15 AM [facility] Work Phone: Start: 02-25-2022 FUV, Provider: Wanda Simpson, Status: Pen, Time: 11:45 AM FUV, Provider: Wanda Simpson, Status: Pen, Time: 11:45 AM [facility] Work Phone: Start: 02-24-2022 FUV, Provider: Gregg Miller, Status: Pen, Time: 12:30 PM FUV, Provider: Gregg Miller, Status: Pen, Time: 12:30 PM [facility] Work Phone: Start: 02-17-2022 [facility], Provider : Gregg Miller, Status: Pen, Time: 9:15 AM [facility], Provider: Gregg Miller, Status: Pen, Time: 9:15 AM [facility] Work Phone: Start: 01-28-2022 FUV, Provider: Wanda Simpson, Status: Pen, Time: 11:45 AM FUV, Provider: Wanda Simpson, Status: Pen, Time: 11:45 AM [facility] Work Phone: Start: 12-30-2021 FUV, Provider: Wanda Simpson, Status: Pen, Time: 11:30 AM FUV, Provider: Wanda Simpson, Status: Pen, Time: 11:30 AM [facility] Work Phone: Start: 12-07-2021 [facility], Provider: Mello Pinedo, Status: Pen, Time: 1:15 PM [facility], Provider: Mello Pinedo, Status: Pen, Time: 1:15 PM [facility] Work Phone: Start: 12-02-2021 FUV, Provider: Wanda Simpson, Status: Pen, Time: 1:45 PM FUV, Provider: Wanda Simpson, Status: Pen, Time: 1:45 PM [facility] Work Phone: Start: 12-02-2021 FUV, Provider: Gregg Miller, Status: Pen, Time: 11:00 AM FUV, Provider: Gregg Miller, Status: Pen, Time: 11:00 AM [facility] Work Phone: Start: 11-20-2021 [facility], Provider: Mello Pinedo, Status: Pen, Time: 11:00 AM [facility], Provider: Mello Pinedo, Status: Pen, Time: 11:00 AM [facility] Work Phone: Start: 11-04-2021 FUV, Provider: Wanda Simpson, Status: Pen, Time: 10:15 AM [facility]UV, Provider: Wanda Simpson, Status: Pen, Time: 10:15 AM [facility] Work Phone: Start: 10-19-2021 FUV, Provider: Gregg Miller, Status: Pen, Time: 11:45 AM FUV, Provider: Gregg Miller, Status: Pen, Time: 11:45 AM [facility] Work Phone: Start: 10-15-2021 COLON, Provider: Gregg Miller, Status: Pen, Time: 11:30 AM COLON, Provider: Gregg Miller, Status: Pen, Time: 11:30 AM [facility] Work Phone: Start: 10-10-2021 ADVANCE DIRECTIVE DISCUSSION ADVANCE DIRECTIVE DISCUSSION [facility] Start: 10-10-2021 DEPRESSION ASSESSMENT DEPRESSION ASS ESSMENT [facility] Start: 09-15-2021 FUV, Provider: Gregg Miller, Status: Pen, Time: 2:00 PM FUV, Provider: Gregg Miller, Status: Pen, Time: 2:00 PM [facility] Work Phone: Start: 09-15-2021 [facility], Provider : Gregg Miller, Status: Pen, Time: 2:00 PM [facility], Provider: Gregg Miller, Status: Pen, Time: 2:00 PM [facility] Work Phone: Start: 09-10-2021 COLON, Provider: Gregg Miller, Status: Pen, Time: 11:30 AM COLON, Provider: Gregg Miller, Status: Pen, Time: 11:30 AM [facility] Work Phone: Start: 08-25-2021 FUV, Provider: Gregg Miller, Status: Pen, Time: 12:30 PM FUV, Provider: Gregg Miller, Status: Pen, Time: 12:30 PM [facility] Work Phone: Start: 08-18-2021 [facility], Provider : Gregg Miller, Status: Pen, Time: 4:45 PM [facility], Provider: Gregg Miller, Status: Pen, Time: 4:45 PM [facility] Work Phone: Start: 08-13-2021 FUV, Provider: Wanda Simpson, Status: Pen, Time: 1:15 PM FUV, Provider: Wanda Simpson, Status: Pen, Time: 1:15 PM [facility] Work Phone: Start: 08-03-2021 Patient encounter procedure MCRANNUAL, Provider: Gregg Miller, Status: Pen, Time: 10:30 AM [facility] Work Phone: Start: 07-02-2021 FUV, Provider: Wanda Simpson, Status: Pen, Time: 9:00 AM FUV, Provider: Wanda Simpson, Status: Pen, Time: 9:00 AM [facility] Work Phone: Start: 02-09-2021 COVID-19 VACCINE (2 - Booster for Carlos Manuel series) COVID-19 VACCINE (2 - Booster for Carlos Manuel series) [facility] Start: 08-28-2020 Blood count complete auto&auto difrntl wbc Complete Blood Count + Differential [facility] Work Phone: Start: 08-14-2020 Xray Bone Dens ity, Dexa 1 or More Sites [facility] Work Phone: Start: 06-10-2020 Influenza vaccinatio n given Sequential Influenza Vaccine (#1) [facility] Start: 05-30-2020 Mri spinal canal cervical w/o contrast matrl MRI Cervical without Contrast [facility] Work Phone: Start: 06-10-2019 Influenza vaccinatio n given SEQUENTIAL INFLUENZA VACCINE (Season Ended) [facility] Start: 03-21-2019 End: 03-21-2019 Office Visit 03/21/2019 Office Visit Sports Medicine [place] [address] [phone] [facility] Start: 11-21-2018 End: 11-21-2018 Follow-Up 11/21/2018 Follow-Up Sports Medicine [place] [address] [phone] [facility] Start: 06-10-2018 Influenza vaccinatio n given SEQUENTIAL INFLUENZA VACCINE (#1) [facility] Start: 08-05-2017 Ambulatory 08/05/2017 Off ice Visit Sports Medicine Alexandru Weiner MD [address] [place] [address] [phone] [facility] Start: 06-10-2017 Influenza vaccination SEQUENTI AL INFLUENZA VACCINE (#1) [facility] Work Phone: Start: 2014 BONE DENSITY BONE DENSITY [facility] Start: 2014 Bone Density Screening Bone Density Screening [facility] Start: 2014 Fall risk assessment Steadi Fa ll Risk Assessment [facility] Start: 2014 Pneumococcal vaccination PNEUM OCOCCAL VACCINE AGE 65+ (1 of 2 - PCV13) [facility] Work Phone: Start: 2014 PNEUMOCOCCAL: 65+ (1 - PCV) PNEUMOCOCCAL: 65+ (1 - PCV) [facility] Start: 2014 Screening for osteoporosis Bone Density Screening [facility] Start: 2009 RSV Vaccine (1 - 1-d ose 60+ series) RSV Vaccine (1 - 1-dose 60+ series) [facility] Start: 2009 Zoster vacc, sc [facility] VACCINE [facility] Work Phone: Start: 1999 Administration of he rpes zoster vaccine ZOSTER VACCINES (1 of 2) [facility] Start: 1999 Screening for malign ant neoplasm of colon [facility] Start: 1999 SHINGRIX VACCINE (1 of 2) SHINGRIX VACCINE (1 of 2) [facility] Start: 1994 COLOGUARD (FIT-DNA) COLOGUARD (FIT-D NA) [facility] Start: 1994 Colonoscopy COLONOSCOPY [facility] Start: 1994 COLORECTAL CANCER SCREENING COLORECTAL CANCER SCREENING [facility] Start: [address] [facility] Start: 1994 FECAL OCCULT BLOOD FECAL OCCULT BLOO D [facility] Start: 1994 Lipid 1996 panel - S naldo or Plasma Lipid Screening [facility] Start: 1994 Lipid panel Lipid Screening [facility] Start: 1994 LIPID SCREEN LIPID SCREEN [facility] Start: 1994 Screening for malign ant neoplasm of colon [facility] Start: 1994 SIGMOIDOSCOPY SIGMOIDOSCOPY [facility] Start: 1989 Mammography [facility] Start: 1989 Screening for malign ant neoplasm of breast Mammogram Screening [facility] Start: 1979 Zoledronic acid therapy ALPHA- 1 ANTITRYPSIN DEFICIENCY SCREENING [facility] Start: 1968 Urine microalbumin profile DTAP,TDAP,TD (1 - Tdap) [facility] Start: 1967 ANNUAL PCP TEAM OVERLOCK HEMMER ANETTE DISEASE VISIT ANNUAL PCP TEAM CHRONIC DISEASE VISIT [facility] Start: 1967 Anxiety Screening Anxiety Screening [facility] Start: 1967 Depression Screening Depression Scre ening [facility] Start: 1967 Hepatitis C antibody , confirmatory test Hepatitis C Screening [facility] Start: 1967 HEPATITIS C SCREENING HEPATITIS C [facility] Start: 1967 Hepatitis C screening Hepatitis C [facility] Start: 1965 COVID-19 Vaccine (1 of 2) COVID-19 Vaccine (1 of 2) [facility] Start: 1961 Adolescent depressio n screening assessment [facility] Start: 1955 PNEUMOCOCCAL: 65+ (1 - PCV) PNEUMOCOCCAL: 65+ (1 - PCV) [facility] Start: 1952 History and physical examination, annual for health maintenance Wellness Visit [facility] Start: 1950 Colonoscopy COLONOSCOPY [facility] Start: 1950 Fall risk assessment Falls Risk Asse ssment [facility] Start: 1950 Hepatitis C antibody , confirmatory test HEPATITIS C SCREENING [facility] Start: 1949 Protein mass conc [facility] Start: 1949 Screening for malign ant neoplasm of colon Colorectal Cancer Screening: Colonoscopy [facility] Start: 1950 Screening mammography Mammogram O [facility] Start: 1949 HEPATITIS C SCREENING HEPATITIS C [facility] Work Phone: Start: 1950 Screening colonoscopy COLONOSCOPY O [facility] Work Phone: Start: 1949 End: 1949 Screening for osteoporosis DEXA SCAN [facility] Work Phone: Start: 1950 End: 1949 Tetanus vaccination [facility] Work Phone: Catheterization of l eft heart [facility] Work Phone: Folate [Moles/volume ] in Serum or Plasma [facility] Joint Injection/Arthrocentesis [facility] Work Phone: Magnesium measurement [facility] MG Breast - bilatera l Screening [facility] End: 01-07-2025 NITRIC OXIDE, EXHALED NITRIC OXIDE, EXHALED PFT Routine Asthma-COPD overlap syndrome (HCC) 1 Occurrences starting 12/09/2023 until 01/07/2025 [facility] Work Phone: Comment on above: 1 Occurrences starti ng 12/09/2023 until 01/07/2025 Patient Education [facility] Work Phone: Patient referral [facility] Work Phone: SPIROMETRY WITH DILA TOR IF OBSTRUCTED SPIROMETRY WITH DILATOR IF OBSTRUCTED PFT Routine Chronic obstructive pulmonary disease, unspecified COPD type ([facility]) 05/14/2022 12:51 PM EDT [facility] Work Phone: End: 01-07-2025 SPIROMETRY WITH DILATOR IF OBSTRUCTED SPIROMETRY WITH DILATOR IF OBSTRUCTED PFT Routine Asthma-COPD overlap syndrome (HCC) 1 Occurrences starting 12/09/2023 until 01/07/2025 [facility] Work Phone: Comment on above: 1 Occurrences starti ng 12/09/2023 until 01/07/2025 SPIROMETRY WITH DILA TOR IF OBSTRUCTED SPIROMETRY WITH DILATOR IF OBSTRUCTED PFT Routine Asthma-COPD overlap syndrome ([facility]) 06/18/2024 11:12 AM EDT [facility] Work Phone: Troponin T.cardiac [Mass/volume] in Serum or Plasma by High sensitivity method [facility] Urine culture [facility] NEGATED: Highlighted row has been ruled out! Planned Goals not documented [facility] 300 Work Phone: Immunizations Immunization Date Immunization Notes Care Provider Nya christiansen 07-06-2024 Seasonal trivalent influenza vaccine, adjuvanted, preservative free Dr. Mariola Magdaleno MD Work Phone: [facility] 06-30-2023 influenza, injectabl e, quadrivalent, preservative free Amy Yu PA-C Work Phone: [facility] Work Phone: 06-30-2023 influenza virus vacc ine, unspecified formulation Pulm Wstr Work Phone: [facility] 03-18-2023 pneumococcal (PCV20) vaccine, 20 valent (PREVNAR 20) Amy Yu PA-C Work Phone: [facility] 08-10-2022 Covid Pfizer Bivalen t Booster Dr. Mariola Magdaleno Work Phone: [facility] 08-10-2022 influenza (aIIV4) vaccine, age 65+ yr, quadrivalent, PF (FLUAD QUAD) Amy Yu PA-C Work Phone: [facility] Work Phone: 08-10-2022 Influenza, high dose seasonal Dr. Marioal Magdaleno MD Work Phone: [facility] 08-10-2022 influenza, high dose seasonal, preservative-free Dr. Mariola Magdaleno Work Phone: [facility] 08-10-2022 influenza, injectabl e, quadrivalent, preservative free Dr. Mariola Magdaleno Work Phone: [facility] 08-10-2022 influenza virus vacc ine, unspecified formulation Tara Khoury MD Work Phone: [facility] 04-20-2022 tetanus toxoid, redu manuel diphtheria toxoid, and acellular pertussis vaccine, adsorbed Dr. Gregg Miller Work Phone: [facility] 06-10-2021 influenza, injectabl e, quadrivalent, preservative free Dr. Mariola Magdaleno Work Phone: [facility] 06-10-2021 influenza, seasonal, injectable Gregg Miller Work Phone: [facility] Comment on above: Series: 12-15-2020 Carlos Manuel COVID-19 Vac cine 0.5 ML Intramuscular Suspension Gregg Miller Work Phone: [facility] Comment on above: Series: 07-14-2020 Influenza, high dose seasonal Dr. Mariola Magdaleno MD Work Phone: [facility] 07-14-2020 influenza, high dose seasonal, preservative-free Dr. Gregg Miller Work Phone: [facility] 07-12-2020 influenza, seasonal, injectable Gregg Valladarese Work Phone: [facility] Work Phone: Comment on above: Series: 07-12-2020 influenza, seasonal, injectable Wanda Simpson [facility] Work Phone: 06-27-2019 influenza, injectabl e, quadrivalent, preservative free Gregg Miller Work Phone: [facility] Work Phone: 06-27-2019 influenza, seasonal, injectable Dr. Gregg Miller Work Phone: [facility] 07-05-2018 Influenza, high dose seasonal Dr. Mariola Magdaleno MD Work Phone: [facility] 07-05-2018 influenza, high dose seasonal, preservative-free Gregg Miller Work Phone: [facility] 07-05-2017 influenza, injectabl e, quadrivalent, preservative free Gregg Miller Work Phone: [facility] Work Phone: 07-05-2017 influenza, seasonal, injectable Dr. Gregg Miller Work Phone: [facility] 10-10-2014 pneumococcal polysaccharide vaccine, 23 valent Dennis Tinsley [facility] Comment on above: Series: 09-29-2009 novel influenza-H1N1 -09, preservative-free, injectable Gregg Miller Work Phone: [facility] 08-05-2009 influenza virus vacc ine, whole virus Gregg Miller Work Phone: [facility] Work Phone: 08-05-2009 influenza, injectabl e, quadrivalent, preservative free Dr. Mariola Magdaleno Work Phone: [facility] 08-05-2009 influenza, seasonal, injectable Dr. Gregg Miller Work Phone: [facility] 08-28-2008 influenza virus vacc ine, whole virus Gregg Miller Work Phone: [facility] Work Phone: 08-28-2008 influenza, injectabl e, quadrivalent, preservative free Dr. Mariola Magdaleno Work Phone: [facility] 08-28-2008 influenza, seasonal, injectable Dr. Gregg Miller Work Phone: [facility] 09-06-2007 influenza virus vacc ine, whole virus Gregg Miller Work Phone: [facility] Work Phone: 09-06-2007 influenza, injectabl e, quadrivalent, preservative free Dr. Mariola Magdaleno Work Phone: [facility] 09-06-2007 influenza, seasonal, injectable Dr. Gregg Miller Work Phone: [facility] 01-09-2001 hepatitis B vaccine, pediatric or pediatric/adolescent dosage Greggkory Villaallaee Work Phone: [facility] 08-09-2000 hepatitis B vaccine, pediatric or pediatric/adolescent dosage Gregg Jennifer Tavallaee Work Phone: [facility] 07-05-2000 hepatitis B vaccine, pediatric or pediatric/adolescent dosage Gregg Jennifer Tavallaee Work Phone: [facility] 07-05-2000 TD(adult) unspecifie d formulation Gregg Miller Work Phone: [facility] Payers Date Payer Category Payer Medicare (Managed Care) [employer] [id number] 2024 Medicare [id number] 2024 Self-pay [id number] 2023 Private Health Insurance [id number] 2021 Private Health Insurance [facility] AARP SUPPLEMENT [id number] 2021-Present [phone] [address] [place] [address] Indemnity [id number] 2016 Unknown [id number] 2016 Unknown [id number] 2016 Unknown [id number] [id number]. [id number] 2012 Medicare [id number] 2.16.840.1.036959.3.249.13 2012 Medicare [id number]. [id number] 2012 Medicare [id number] 2012 Medicare [id number] [id number]. [id number] 2012 Medicare [id number] 1.13.159.2. [id number] 1949 Unknown [id number] 2.16840.1.801677.3.579.2. 903 1949 Unknown [id number] 2.840.1.746826.3.579.2. 90 1949 Unknown [id number] 2.840.1.885477.3.579.2. 1949 Unknown [id number] 2.0.1.926510.3.579.2. 90 1949 Unknown [id number] 2.840.1.653558.3.579.2. 903 1949 Unknown [id number] 2.840.1.046453.3.579.2. 903 1949 Unknown [id number] 2.0.1.887113.3.579.2. 1068 1949 Unknown [id number] 2.840.1.468413.3.579.2. 1068 1949 Unknown [id number] 2.840.1.653557.3.579.2. 1069 Unknown Unknown [id number] 2.16840.1.174309.3.579.2. 462 Unknown [id number] 2.16840.1.329658.3.579.2. 462 Unknown [id number] 2.840.1.871824.3.579.2. 462 Unknown [id number] 2.16.840.1.867699.3.579.2. 462 Unknown [id number] 2.16.840.1.736998.3.579.2. 462 Unknown [id number] 2.16.840.1.315667.3.579.2. 462 Unknown [id number] 2.16.840.1.814987.3.579.2. 462 Unknown [id number] 2.16.840.1.229218.3.579.2. 462 Unknown [id number] 2.16.840.1.448024.3.579.2. 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 Unknown if ever smoked [facility] Start: 1950 Sex Assigned At Female W [facility] Start: 05-12-2022 Tobacco smoking status MDIS Smokes tobacco daily [facility] Work Phone: Start: 02-07-1955 End: 02-08-1980 History of tobacco use Cigarette Smoker [facility] Work Phone: Start: [birth year]07-1955 End: 02-08-1980 History of tobacco use Current smoker [facility] Start: 05-14-2022 End: 04-01-2023 Alcohol intake Lifetime non-drinker (finding) [facility] Start: 05-14-2022 History SDOH Alcohol Frequency 1 [facility] Start: 05-04-2022 End: 05-14-2022 Exposure to SARS-CoV-2 (event) Not sure [facility] Start: 06-01-2023 End: 12-17-2024 Alcohol intake Ex-drinker (finding) [facility] Start: 03-18-2023 End: 06-01-2023 Tobacco use panel [facility] National Score (1-100), lower number is lower risk 52 [facility] Start: 01-01-2025 End: 01-02-2025 Sex Female (finding) [facility] NEGATED: Highlighted row - - [facility] 300 Work Phone: Medical Equipment Procedure Code Equipment Code Equipment Origin al Text Equipment Identifier Dates Accu-Chek Alisia Plus In Vitro Strip TEST 4 TIMES DAILY. Quantity: 120 Refills: 11 Paul TAO, Gregg Active Blood Sugar Diagnostic (Accu-Chek Smartview Test Strip) strip Start: 04-20-2022 Blood Sugar Diagnostic (Accu-Chek Smartview Test Strip) strip Start: 04-20-2022 Blood Sugar Diagnostic (Accu-Chek Smartview Test Strip) strip Start: 04-20-2022 Blood Sugar Diagnostic (Accu-Chek Smartview Test Strip) strip Start: 04-20-2022 Blood Sugar Diagnostic (Accu-Chek Smartview Test Strip) strip Start: 04-20-2022 Blood Sugar Diagnostic (Accu-Chek Smartview Test Strip) strip Start: 04-20-2022 Blood Sugar Diagnostic (Accu-Chek Smartview Test Strip) strip Start: 04-20-2022 Blood Sugar Diagnostic (Accu-Chek Smartview Test Strip) strip Start: 01-05-2023 Blood Sugar Diagnostic (Accu-Chek Smartview Test Strip) strip Start: 04-20-2022 End: 12-21-2022 Blood Sugar Diagnostic (Accu-Chek Smartview Test Strip) strip Start: 12-21-2022 End: 12-22-2022 Blood Sugar Diagnostic (Accu-Chek Smartview Test Strip) strip Start: 12-22-2022 End: 12-22-2022 Blood Sugar Diagnostic (Accu-Chek Smartview Test Strip) strip Start: 12-22-2022 End: 01-05-2023 Blood Sugar Diagnostic (Accu-Chek Smartview Test Strip) strip Start: 02-28-2023 Blood Sugar Diagnostic (Accu-Chek Smartview Test Strip) strip Start: 04-20-2022 End: 12-21-2022 Blood Sugar Diagnostic (Accu-Chek Smartview Test Strip) strip Start: 12-21-2022 End: 12-22-2022 Blood Sugar Diagnostic (Accu-Chek Smartview Test Strip) strip Start: 12-22-2022 End: 12-22-2022 Blood Sugar Diagnostic (Accu-Chek Smartview Test Strip) strip Start: 12-22-2022 End: 01-05-2023 Blood Sugar Diagnostic (Accu-Chek Smartview Test Strip) strip Start: 01-05-2023 End: 02-28-2023 Blood Sugar Diagnostic (Accu-Chek Smartview Test Strip) strip Start: 02-28-2023 Blood Sugar Diagnostic (Accu-Chek Smartview Test Strip) strip Start: 04-20-2022 End: 12-21-2022 Blood Sugar Diagnostic (Accu-Chek Smartview Test Strip) strip Start: 12-21-2022 End: 12-22-2022 Blood Sugar Diagnostic (Accu-Chek Smartview Test Strip) strip Start: 12-22-2022 End: 12-22-2022 Blood Sugar Diagnostic (Accu-Chek Smartview Test Strip) strip Start: 12-22-2022 End: 01-05-2023 Blood Sugar Diagnostic (Accu-Chek Smartview Test Strip) strip Start: 01-05-2023 End: 02-28-2023 Blood Sugar Diagnostic (Accu-Chek Smartview Test Strip) strip Start: 01-02-2024 Blood Sugar Diagnostic (Onetouch Verio Test Strips) strip Start: 01-04-2024 Insulin Syringe-Needle U-100 (Bd Insulin Syringe Ultra-Fine) 0.3 mL 31 gauge x 5/16 syringe Start: 01-06-2024 Blood Sugar Diagnostic (Accu-Chek Smartview Test Strip) strip Start: 04-20-2022 End: 12-21-2022 Blood Sugar Diagnostic (Accu-Chek Smartview Test Strip) strip Start: 06-30-2023 End: 09-26-2023 Blood Sugar Diagnostic (Accu-Chek Smartview Test Strip) strip Start: 02-28-2023 End: 05-23-2023 Blood Sugar Diagnostic (Accu-Chek Smartview Test Strip) strip Start: 01-02-2024 End: 01-02-2024 Blood Sugar Diagnostic (Accu-Chek Smartview Test Strip) strip Start: 12-21-2022 End: 12-22-2022 Blood Sugar Diagnostic (Accu-Chek Smartview Test Strip) strip Start: 12-22-2022 End: 12-22-2022 Blood Sugar Diagnostic (Accu-Chek Smartview Test Strip) strip Start: 12-22-2022 End: 01-05-2023 Blood Sugar Diagnostic (Accu-Chek Smartview Test Strip) strip Start: 01-05-2023 End: 02-28-2023 Blood Sugar Diagnostic (Accu-Chek Smartview Test Strip) strip Start: 05-23-2023 End: 06-30-2023 Blood Sugar Diagnostic (Accu-Chek Smartview Test Strip) strip Start: 09-26-2023 End: 01-02-2024 Insulin Syringe-Needle U-100 (Bd Insulin Syringe Ultra-Fine) 0.3 mL 31 gauge x 5/16 syringe Start: 10-07-2023 End: 01-06-2024 Blood Sugar Diagnostic (Accu-Chek Smartview Test Strip) strip Start: 01-02-2024 Blood Sugar Diagnostic (Onetouch Verio Test Strips) strip Start: 01-04-2024 Insulin Syringe-Needle U-100 (Bd Insulin Syringe Ultra-Fine) 0.3 mL 31 gauge x 5/16 syringe Start: 01-06-2024 Blood Sugar Diagnostic (Accu-Chek Smartview Test Strip) strip Start: 04-20-2022 End: 12-21-2022 Blood Sugar Diagnostic (Accu-Chek Smartview Test Strip) strip Start: 06-30-2023 End: 09-26-2023 Blood Sugar Diagnostic (Accu-Chek Smartview Test Strip) strip Start: 02-28-2023 End: 05-23-2023 Blood Sugar Diagnostic (Accu-Chek Smartview Test Strip) strip Start: 01-02-2024 End: 01-02-2024 Blood Sugar Diagnostic (Accu-Chek Smartview Test Strip) strip Start: 12-21-2022 End: 12-22-2022 Blood Sugar Diagnostic (Accu-Chek Smartview Test Strip) strip Start: 12-22-2022 End: 12-22-2022 Blood Sugar Diagnostic (Accu-Chek Smartview Test Strip) strip Start: 12-22-2022 End: 01-05-2023 Blood Sugar Diagnostic (Accu-Chek Smartview Test Strip) strip Start: 01-05-2023 End: 02-28-2023 Blood Sugar Diagnostic (Accu-Chek Smartview Test Strip) strip Start: 05-23-2023 End: 06-30-2023 Blood Sugar Diagnostic (Accu-Chek Smartview Test Strip) strip Start: 09-26-2023 End: 01-02-2024 Insulin Syringe-Needle U-100 (Bd Insulin Syringe Ultra-Fine) 0.3 mL 31 gauge x 5/16 syringe Start: 10-07-2023 End: 01-06-2024 Blood Sugar Diagnostic (Accu-Chek Smartview Test Strip) strip Start: 01-02-2024 Blood Sugar Diagnostic (Onetouch Verio Test Strips) strip Start: 10-23-2024 Insulin Syringe-Needle U-100 (Bd Insulin Syringe Ultra-Fine) 0.3 mL 31 gauge x 5/16 syringe Start: 12-20-2024 Blood Sugar Diagnostic (Accu-Chek Smartview Test Strip) strip Start: 04-20-2022 End: 12-21-2022 Blood Sugar Diagnostic (Accu-Chek Smartview Test Strip) strip Start: 06-30-2023 End: 09-26-2023 Blood Sugar Diagnostic (Accu-Chek Smartview Test Strip) strip Start: 02-28-2023 End: 05-23-2023 Blood Sugar Diagnostic (Accu-Chek Smartview Test Strip) strip Start: 01-02-2024 End: 01-02-2024 Blood Sugar Diagnostic (Accu-Chek Smartview Test Strip) strip Start: 12-21-2022 End: 12-22-2022 Blood Sugar Diagnostic (Accu-Chek Smartview Test Strip) strip Start: 12-22-2022 End: 12-22-2022 Blood Sugar Diagnostic (Accu-Chek Smartview Test Strip) strip Start: 12-22-2022 End: 01-05-2023 Blood Sugar Diagnostic (Accu-Chek Smartview Test Strip) strip Start: 01-05-2023 End: 02-28-2023 Blood Sugar Diagnostic (Accu-Chek Smartview Test Strip) strip Start: 05-23-2023 End: 06-30-2023 Blood Sugar Diagnostic (Accu-Chek Smartview Test Strip) strip Start: 09-26-2023 End: 01-02-2024 Blood Sugar Diagnostic (Onetouch Verio Test Strips) strip Start: 01-04-2024 End: 05-07-2024 Blood Sugar Diagnostic (Onetouch Verio Test Strips) strip Start: 05-07-2024 End: 10-23-2024 Insulin Syringe-Needle U-100 (Bd Insulin Syringe Ultra-Fine) 0.3 mL 31 gauge x 5/16 syringe Start: 10-07-2023 End: 01-06-2024 Insulin Syringe-Needle U-100 (Bd Insulin Syringe Ultra-Fine) 0.3 mL 31 gauge x 5/16 syringe Start: 01-06-2024 End: 05-07-2024 Insulin Syringe-Needle U-100 (Bd Insulin Syringe Ultra-Fine) 0.3 mL 31 gauge x 5/16 syringe Start: 05-07-2024 End: 08-13-2024 Insulin Syringe-Needle U-100 (Bd Insulin Syringe Ultra-Fine) 0.3 mL 31 gauge x 5/16 syringe Start: 08-13-2024 End: 08-16-2024 Insulin Syringe-Needle U-100 (Bd Insulin Syringe Ultra-Fine) 0.3 mL 31 gauge x 5/16 syringe Start: 08-16-2024 End: 12-20-2024 Blood Sugar Diagnostic (Accu-Chek Smartview Test Strip) strip Start: 01-02-2024 Blood Sugar Diagnostic (Onetouch Verio Test Strips) strip Start: 10-23-2024 Insulin Syringe-Needle U-100 (Bd Insulin Syringe Ultra-Fine) 0.3 mL 31 gauge x 5/16 syringe Start: 12-20-2024 Blood Sugar Diagnostic (Accu-Chek Smartview Test Strip) strip Start: 04-20-2022 End: 12-21-2022 Blood Sugar Diagnostic (Accu-Chek Smartview Test Strip) strip Start: 06-30-2023 End: 09-26-2023 Blood Sugar Diagnostic (Accu-Chek Smartview Test Strip) strip Start: 02-28-2023 End: 05-23-2023 Blood Sugar Diagnostic (Accu-Chek Smartview Test Strip) strip Start: 01-02-2024 End: 01-02-2024 Blood Sugar Diagnostic (Accu-Chek Smartview Test Strip) strip Start: 12-21-2022 End: 12-22-2022 Blood Sugar Diagnostic (Accu-Chek Smartview Test Strip) strip Start: 12-22-2022 End: 12-22-2022 Blood Sugar Diagnostic (Accu-Chek Smartview Test Strip) strip Start: 12-22-2022 End: 01-05-2023 Blood Sugar Diagnostic (Accu-Chek Smartview Test Strip) strip Start: 01-05-2023 End: 02-28-2023 Blood Sugar Diagnostic (Accu-Chek Smartview Test Strip) strip Start: 05-23-2023 End: 06-30-2023 Blood Sugar Diagnostic (Accu-Chek Smartview Test Strip) strip Start: 09-26-2023 End: 01-02-2024 Blood Sugar Diagnostic (Onetouch Verio Test Strips) strip Start: 01-04-2024 End: 05-07-2024 Blood Sugar Diagnostic (Onetouch Verio Test Strips) strip Start: 05-07-2024 End: 10-23-2024 Insulin Syringe-Needle U-100 (Bd Insulin Syringe Ultra-Fine) 0.3 mL 31 gauge x 5/16 syringe Start: 10-07-2023 End: 01-06-2024 Insulin Syringe-Needle U-100 (Bd Insulin Syringe Ultra-Fine) 0.3 mL 31 gauge x 5/16 syringe Start: 01-06-2024 End: 05-07-2024 Insulin Syringe-Needle U-100 (Bd Insulin Syringe Ultra-Fine) 0.3 mL 31 gauge x 5/16 syringe Start: 05-07-2024 End: 08-13-2024 Insulin Syringe-Needle U-100 (Bd Insulin Syringe Ultra-Fine) 0.3 mL 31 gauge x 5/16 syringe Start: 08-13-2024 End: 08-16-2024 Insulin Syringe-Needle U-100 (Bd Insulin Syringe Ultra-Fine) 0.3 mL 31 gauge x 5/16 syringe Start: 08-16-2024 End: 12-20-2024 Goals Date Patient Goal Desired Activity /State Functional Status Date Assessment Result Facility 01-02-2025 Functional status Ambulates [facility] Work Phone: NEGATED: Highlighted row Functional performance Functional status health issues are not documented Disease [facility] 300 Work Phone: Mental Status Date Assessment Result Facility 01-02-2025 Cognitive function Appropriate;C ooperati ve [facility] Work Phone: 05-19-2022 Cognitive function Voice/Name [place] Work Phone: 03-20-2022 Cognitive function Voice/Name [place] Work Phone: NEGATED: Highlighted row Cognitive function [Interpretation] Cognitive status health issues are not documented Disease [facility] 300 Work Phone: Clinical Notes 07-10-2020 to 01-02-2025 Note Date & Type Note Facility 01-02-2025 Discharge summary [facility] 01-02-2025 Note [facility] Medical Records Department [address] [place] [id number] Discharge Summary 01/02/25 1336 MR#: [id number] Acct: [id number] Name: TISH BUTLER YOLI Rep #: [id number] : 1950 74 From: Tish Stokes DO PCP: Dr. Mariola Magdaleno MD Status:ADM IN Location: [facility] [id number] Providers Date of Admission: 01/01/25 Date of Discharge: 01/02/25 Primary Care Physician: Dr. Mariola Magdaleno MD Reason For Visit: INFLUENZA A WITH AE COPD Diagnosis Discharge Diagnosis (1) Influenza A: Status: Acute Code(s): J10.1 - Influenza due to other identified influenza virus with other respiratory manifestations (2) COPD exacerbation: Status: Chronic Code(s): J44.1 - Chronic obstructive pulmonary disease with (acute) exacerbation (3) Acute bacterial bronchitis: Status: Acute Code(s): J20.8 - Acute bronchitis due to other specified organisms; B96.89 - Other specified bacterial agents as the cause of diseases classified elsewhere (4) Respiratory insufficiency: Status: Acute Code(s): R06.89 - Other abnormalities of breathing (5) Chronic respiratory failure with hypoxia, on home O2 therapy: Status: Chronic Code(s): J96.11 - Chronic respiratory failure with hypoxia; Z99.81 - Dependence on supplemental oxygen (6) Generalized weakness: Status: Acute Code(s): R53.1 - Weakness (7) Myalgia: Status: Acute Code(s): M79.10 - Myalgia, unspecified site (8) Malaise: Status: Acute Code(s): R53.81 - Other malaise (9) Obesity (BMI 30-39.9): Status: Acute Code(s): E66.9 - Obesity, unspecified (10) SELENA (obstructive sleep apnea): Status: Acute Code(s): G47.33 - Obstructive sleep apnea (adult) (pediatric) Medications at Discharge Home Medications fluticasone propionate 50 mcg/actuation nasal spray,suspension 2 spray intranasal DAILY nasal spray 03/20/22 loratadine 10 mg capsule 10 mg PO DAILY blood 03/20/22 aspirin 81 mg tablet,delayed release (Adult Low Dose Aspirin) 81 mg PO DAILY heart health 04/02/22 albuterol sulfate 90 mcg/actuation aerosol inhaler 2 puff inhalation Q6H PRN shortness of breath or wheezing #8.5 grams 04/20/22 albuterol sulfate 2.5 mg/3 mL (0.083 %) solution for nebulization 2.5 mg continuous nebulization Q4H PRN sob 09/16/22 emollient (Vanicream topical) applic topical 02/28/23 sodium chloride-aloe vera nasal gel ([place] Saline nasal gel) 1 applic topical HS PRN nasal gel 02/28/23 fluticasone fur. 200 mcg-umeclid 62.5 mcg-vilant 25 mcg inhalat.powder (Trelegy Ellipta) 1 inh inhalation DAILY breathi 04/11/23 insulin glargine 100 unit/mL subcutaneous cartridge 32 unit subcut QPM 11/08/23 blood sugar diagnostic (Accu-Chek SmartView Test Strips) #300 ea 01/02/24 blood-glucose meter (OneTouch Verio Flex Meter) #1 ea 03/19/24 azelastine 137 mcg (0.1 %) nasal spray 1 spray intranasal BID PRN congestion #30 mL 04/04/24 atorvastatin 40 mg tablet (Lipitor) 40 mg PO DAILY #90 tabs 05/02/24 baclofen 10 mg tablet 10 mg PO TID PRN pain 05/02/24 naproxen sodium 220 mg capsule (Aleve) 220 mg PO Q12H PRN pain 05/02/24 duloxetine 40 mg capsule,delayed release 40 mg PO DAILY #90 caps 09/05/24 blood sugar diagnostic (OneTouch Verio test strips) #100 ea 10/23/24 esomeprazole magnesium 40 mg capsule,delayed release 40 mg PO BID #180 caps 10/23/24 insulin glargine 100 unit/mL (3 mL) subcutaneous pen 32 unit (0.32 mL) subcut QPM #15 mL 10/23/24 lisinopril 5 mg tablet 5 mg PO DAILY #90 tabs 10/23/24 metoprolol succinate 50 mg tablet,extended release 24 hr (Toprol XL) 50 mg PO DAILY #90 tabs 10/23/24 montelukast 10 mg tablet 10 mg PO QHS #90 tabs 10/23/24 potassium chloride 20 mEq tablet,extended release(part/cryst) (Klor-Con M) 20 meq PO DAILY #90 TABLETS 10/23/24 furosemide 20 mg tablet 40 mg (2 x 20 mg) PO BID #180 tabs 12/20/24 insulin syringe-needle U-100 0.3 mL 31 gauge x 5/16 (BD Insulin Syringe Ultra-Fine) #50 ea 12/20/24 prednisone 10 mg tablet 10 mg PO DAILY #30 tabs 01/02/25 Hospital Course Operations None Procedures - (Chest x-ray) Summary of Care Provided Minutes Spent on Discharge: 37 Hospital Course: Patient is a 74-year-old female with a history of COPD/asthma overlap syndrome, chronic hypoxemic respiratory failure, tracheal stenosis with previous emergent tracheostomy having granulation tissue requiring intervention and SELENA noncompliant with CPAP who presented to the emergency department at [facility] on 01/01/2025 with chief complaint of shortness of breath. She follows at baseline as an outpatient with Dr. Tara Khoury at [facility] for pulmonary medicine. She wears 2 L of supplemental oxygen at her baseline. Upon presentation emergency department she complained of cough, generalized bodyaches, weakness and shortness of breath but no increase in oxygen requirements. She noted that she started to feel poorly on Tuesday and got worse which prompted (more content not included)... [facility] 01-02-2025 History and physical note Note Date/Time January 02, 2025 6:43am [facility] Medical Records Department [address] [place] [address] H&P Exam - Hospitalist 01/01/252114 MR#: [id number] Acct: [id number] Name: TISH BUTLER YOLI Rep #:[id number] : 1950 74 From: Sunil Duran DO PCP: Dr. Mariola Magdaleno MD Status:ADM IN Location: [facility] [id number] HPI - General General Date of Admission: 01/01/25 Date of Service: 01/01/25 Chief Complaint: SOB, Cough and Generalized Weakness. HPI Narrative TISH BUTLER, is a 74 F with a past history of essential hypertension; on lisinopril, metoprolol and furosemide 20 mg p.o. twice daily, hyperlipidemia; onatorvastatin, obesity; with BMI of 37.5 this admission, SELENA; on CPAP, history oftobacco abuse (quit 1979); with subsequent COPD, chronic hypoxic respiratory failure; on 2.5L NC continuous, history of tracheostomy (~2013), DM-2; of unknown control on insulin glargine 32 units sq every PM, history rheumatic fever, history of paroxysmal atrial fibrillation (2019); on baby aspirin daily, history of cor pulmonale, history of RBBB and Left posterior fascicular block, history of thoracic outlet syndrome, history of vitamin D deficiency, history ofvitamin B12 deficiency, seasonal allergies; on loratadine plus fluticasone nasalspray, RLS, history of fibromyalgia, depression; on duloxetine, history of TMJ dysfunction, history of hysterectomy, history of diverticulitis, history of umbilical hernia; s/p repair, GERD; on esomeprazole BID and OA; s/p TKR and radiofrequency ablation of a nerve of the cervical spine on naproxen twice dailyplus baclofen 3 times daily for muscle spasms with patient using a walker at baseline for ambulation who presents to [facility] ER complaining of shortness of breath, cough and generalized weakness. Mrs. Butler reports her symptoms began on Sunday, December 29, 2024 with a gradual-onset of progressively worsening cough productive of yellowish sputum with generalized weakness. She also admits to worsening shortness of breath with chills. He was also sick with a similar viral illness just prior to her apparently catching it from him. She denies associated fever, changes invision, chest pain, palpitations, heart racing, abdominal pain, nausea, vomiting, diarrhea, constipation, dysuria, hematuria, rash or headache. In the ER she was noted to have a viral assay returned positive for Influenza A complicated by clinical evidence of mild AE COPD with Jieox-da-Gxtlocb Respiratory Insufficiency compounded by suspected Acute Bacterial Bronchitis with Generalized Weakness and she was then admitted to the general medical floorfor ongoing care for stay that is expected to extend beyond 2 midnights. 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 Obesity Chronic respiratory failure with hypoxia, on home O2 therapy History of rheumatic fever Hyperlipidemia SELENA (obstructive sleep apnea) Osteoarthritis Paroxysmal atrial fibrillation (07/2020) Restless legs syndrome (RLS) H/O fibromyositis Fibromyalgia Essential tremor Depression Chronic low back pain Essential hypertension Class 2 obesity with body mass index (BMI) of 39.0 to 39.9 in adult Type 2 diabetes mellitus with diabetic polyneuropathy Vitamin D deficiency Vitamin B 12 deficiency Cor pulmonale Atrial fibrillation Irregular heart beat COPD (chronic obstructive pulmonary disease) Home Medications ?Medication ?Instructions ?Recorded ?Last Taken ?Type fluticasone propionate 50 2 spray intranasal DAILY 08/3105/19/22 History mcg/actuation nasal spray,suspension loratadine 10 mg capsule 10 mg PO DAILY 03/20/22 Unkn own History aspirin 81 mg tablet,delayed 81 mg PO DAILY 04/02/22 0 04/23/22 History release (Adult Low Dose Aspirin) albuterol sulfate 90 mcg/actuation 2 puff inhalation Q 6H PRN 04/20/22 Unknown Rx aerosol inhaler shortness of breath or wheez ing #8.5 grams albuterol sulfate 2.5 mg/3 mL 2.5 mg continuous nebuli zation 09/16/22 Unknown History (0.083 %) solution for nebulization emollient (Vanicream topical) applic topical 02/28/23 Unknown History sodium chloride-aloe vera nasal 1 applic topical HS WA N 02/28/23 Unknown History gel ([place] Saline nasal gel) fluticasone fur. 200 mcg-umeclid 1 inh inhalation TEREZA Y 04/11/23 Unknown History 62.5 mcg-vilant 25 mcg inhalat.powder (Trelegy Ellipta) insulin glargine 100 unit/mL 32 unit subcut QPM Unknown History subcutaneous cartridge blood sugar diagnostic (Accu-Chek #300 ea 01/02/24 Unk nown Rx SmartView Test Strips) blood-glucose meter (OneTouch #1 ea 03/19/24 Unknown R x Verio Flex Meter) azelastine 137 mcg (0.1 %) nasal 1 spray intranasal BI D PRN 04/04/24 Unknown Rx spray congestion #30 mL atorvastatin 40 mg tablet (Lipitor) 40 mg PO DAILY #90 tabs 05/02/24 Unknown Rx baclofen 10 mg tablet 10 mg PO TID PRN 05/02/24 Un known History naproxen sodium 220 mg capsule 220 mg PO Q12H PRN 04/10 01/31 Unknown History (Aleve) duloxetine 40 mg capsule,delayed 40 mg PO DAILY #90 ca ps 09/05/24 Unknown Rx release blood sugar diagnostic (OneTouch #100 ea 10/23/24 Unkn own Rx Verio test strips) esomeprazole magnesium 40 mg 40 mg PO BID #180 caps Unknown Rx capsule,delayed release insulin glargine 100 unit/mL (3 32 unit (0.32 mL) subc ut QPM #15 mL 10/23/24 Unknown Rx mL) subcutaneous pen lisinopril 5 mg tablet 5 mg PO DAILY #90 tabs 10/23 Unknown Rx metoprolol succinate 50 mg 50 mg PO DAILY #90 tabs Unknown Rx tablet,extended release 24 hr (Toprol XL) montelukast 10 mg tablet 10 mg PO QHS #90 tabs Unknown Rx potassium chloride 20 mEq 20 meq PO DAILY #90 TABLETS 10/23/24 Unknown Rx tablet,extended release(part/cryst) (Klor-Con M) furosemide 20 mg tablet 40 mg (2 x 20 mg) PO BID #18 0 tabs 12/20/24 Unknown Rx insulin syringe-needle U-100 0.3 #50 ea 12/20/24 Unkno wn Rx mL 31 gauge x 5/16 (BD Insulin Syringe Ultra-Fine) Allergy/AdvReac Type Severity Reaction Status Date / Time cat dander Allergy Severe Inflammation Verified 01/01/25 17:28 of lung house dust Allergy Nasal Verified 01/01/25 17:28 congestion and watery eyes meperidine (From Demerol) Allergy Itching Verified 01/01/25 17:28 mold Allergy nasal Verified 01/01/25 17:28 congestion and watery eyes Penicillins (PCN) Allergy Hives Verified 01/01/25 17:28 tree and shrub pollen Allergy Other Verified 01/01/25 17:28 Family History Mother COPD (chronic obstructive pulmonary disease) Colon cancer Father COPD (chronic obstructive pulmonary disease) Myocardial infarction Alcoholism Emphysema lung Sister Breast cancer Cancer Lung cancer Brother COPD (chronic obstructive pulmonary disease) Aunt Diabetes Surgical History Hx of cataract surgery History of bilateral cataract extraction H/O esophagogastroduodenoscopy History of cardiac catheterization History of thumb surgery History of tracheostomy (~2013) History of radiofrequency ablation (RFA) of nerve of cervical spine History of knee replacement History of colonoscopy (~01/2022) History of dilatation and curettage History of tonsillectomy History of umbilical hernia repair H/O: hysterectomy Social History household members: spouse current occupational status: retired 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 Eyes: Patient denies change in vision or discharge from eyes. ENT: Patient admits to runny nose but she denies sore throat or ear pain. Resp: Patient admits to dyspnea on exertion with cough increasingly productive of yellowish sputum. CV: Patient denies chest pain, palpitations, heart racing or lower extremity edema. GI: Patient denies abdominal pain, nausea, vomiting, diarrhea or constipation. : Patient denies dysuria or hematuria. MSK: Patient admits to diffuse myalgias. Skin: Patient denies rash, abscess, wounds or jaundice. Psych: Patient denies symptoms of uncontrolled depression or anxiety. Neuro: Patient denies headache, paresthesias or focal neurologic deficits. Allergy: Patient denies lip swelling, tongue swelling or urticaria. Hematology: Patient denies easy bleeding or easy bruisability. Endocrinology: Patient denies polyuria, polydipsia, polyphagia or cold/heat intolerance. 14 point ROS otherwise negative except for positives noted above in HPI. Vital Signs Vital Signs Vital Signs: 01/01/25 17:27 01/01/25 17:57 01/01/25 18:18 Temperature 98.3 F 98.4 F Temperature Source Oral Oral Pulse Rate 90 74 97 Respiratory Rate 24 H 25 H 20 H Respiratory Pattern Normal Blood Pressure 112/68 97/53 L Blood Pressure Mean 82 67 Pulse Ox 97 95 Oxygen Delivery Method Nasal Cannula Nasal Cannula Oxygen Flow Rate (L/min) 2 2 01/01/25 18:24 01/01/25 18:30 01/01/25 19:00 Temperature 98.4 F 98.2 F Temperature Source Oral Oral Pulse Rate 78 83 Respiratory Rate 12 28 H Respiratory Pattern Blood Pressure 105/62 116/59 L Blood Pressure Mean 76 78 Pulse Ox 98 98 95 Oxygen Delivery Method Nasal Cannula Nasal Cannula Nasal Cannula Oxygen Flow Rate (L/min) 2 2 2 01/01/25 20:00 01/01/25 21:00 Temperature 98.3 F 98.2 F Temperature Source Oral Oral Pulse Rate 88 85 Respiratory Rate 23 H 26 H Respiratory Pattern Blood Pressure 103/66 148/76 H Blood Pressure Mean 78 100 Pulse Ox 95 98 Oxygen Delivery Method Nasal Cannula Nasal Cannula Oxygen Flow Rate (L/min) 2 2 Weight Weight: 225 lb 4.8 oz Body Mass Index (BMI) 37.5 Physical Exam Const alert, oriented x3 and no apparent distress Constitutional Narrative: Obese with chronically ill appearance. General Appearance: cooperative HEENT normocephalic, head/scalp atraumatic, hearing grossly normal bilaterally and moist oral mucous membranes Eyes PERRL, EOMs intact bilaterally and conjunctivae normal Neck no lymphadenopathy and supple Resp Resp Narrative: Patient has diffuse expiratory wheezing noted throughout all lung cowart. Auscultation: wheezes Cardio regular rate and regular rhythm GI normal to inspection, nondistended, normoactive bowel sounds, soft to palpation,non-tender and non-distended GI Narrative: Obese. Extremity normal to inspection, full ROM and no clubbing, cyanosis or edema Skin Skin Narrative: Patient has evidence of rash, abscess, wounds or jaundice. Neuro oriented x3, CN's II-XII intact bilaterally, moves all extremities and no focal motor deficits Sensorium / Orientation: awake, alert, oriented to person, oriented to place andoriented to time Speech: speech normal Psych affect normal Results Medical Records Data Attestation: I reviewed the patient's medical records Lab / Micro Data Attestation: I reviewed the patient's lab results. 01/01/25 17:50 01/01/25 17:50 Labs: Laboratory Results - last 24 hr 01/01/25 17:50: WBC 6.8, RBC 4.19 L, Hgb 12.6, Hct 38.6, MCV 92.1, MCH 30.1, MCHC 32.6, RDW Std Deviation 45.6 H, RDW Coeff of Gil 13.4, Plt Count 175, MPV 10.3, Immature Gran % (Auto) 0.400, Neut % (Auto) 74.6 H, Lymph % (Auto) 7.2 L, [place] % (Auto) 17.1 H, Eos % (Auto) 0.1, Baso % (Auto) 0.6, Absolute Neuts (auto)5.1, Absolute Lymphs (auto) 0.49 L, Nucleated RBC % 0, Sodium 138, Potassium 3.8, Chloride 103, Carbon Dioxide 22.5, Anion Gap 13, BUN 13, Creatinine 1.05, Estim Creat Clear Calc 54.87, Est GFR (MDRD) Non-Af 55 L, BUN/Creatinine Ratio 12.4, Glucose 92, Calcium 8.7, Troponin T High Sens 19 H, NT pro BNP II 732 01/01/25 18:18: PT 15.1 H, INR 1.2, APTT 30.4, Lactic Acid 1.1 Micro: Microbiology 01/01/25 17:53 Mucosa - Nose SARS-CoV-2, Influenza & RSV (PCR) - Final Influenzae A Imaging Radiology Impression Chest X-Ray 01/01/25 17:55 IMPRESSION: Stable left diaphragmatic elevation. Pulmonary findings are grossly unchanged when compared to prior examination dating back to 03/24/2023. Reading Location: [id number] Assessment & Plan Assessment/Plan (1) Influenza A: (2) COPD exacerbation: (3) Acute bacterial bronchitis: (4) Respiratory insufficiency: (5) Chronic respiratory failure with hypoxia, on home O2 therapy: (6) Generalized weakness: (7) Myalgia: (8) Malaise: (9) Obesity (BMI 30-39.9): (10) SELENA (obstructive sleep apnea): PLAN: Plan 1. Viral assay returned positive for Influenza A - Admit to general medical floor under contact and droplet precautions. Start oseltamivir 30 mg PO BID x 5days. Give vitamin D3, vitamin C and zinc to help boost immunity and hopefully speed recovery. Give acetaminophen prn for iwye-dm-nglhcchq (level 1-5/10) painor fever. Give oxycodone prn for severe (level 6-10/10) pain. 2. AE COPD with Oloek-gf-Sxzkcgp Respiratory insufficiency due to #1 with suspected evolving Acute Bacterial Bronchitis - Start doxycycline IV plus methylprednisolone IV and wean as tolerated. Wean supplemental oxygen back downto baseline levels as tolerated. Give mucolytics as needed. 3. Generalized Weakness with Diffuse Myalgias and Malaise attributable to #1 & #2 with patient using a walker at baseline for ambulation at baseline - PT/OT and Case Management to consult and treat on rounds in AM for further recommendations with help appreciated in advance. 4. Obesity; with BMI of 37.5 this admission plus SELENA; on CPAP adding to the burden of disease outlined from #1 - #3 - Weight loss will be recommended. Check TSH. Resume nocturnal CPAP as previous. This complicates her case and may hamper recovery. 5. Essential Hypertension; on lisinopril, metoprolol and furosemide 20 mg p.o. twice daily - Continue home regimen plus give prn IV hydralazine for systolic blood pressure > 160 mmHg. 6. Hyperlipidemia; on atorvastatin - Maintain statin and check Lipid Profile. 7. History of tobacco abuse (quit 1979); with subsequent COPD and chronic hypoxic respiratory failure; on 2.5L NC continuous - Treatment plan noted in #2. 8. DM-2; of unknown control on insulin glargine 32 units sq every PM - Resume current treatment plus augment with FSBS q. AC/HS plus medium intensity SSI. Check HgbA1c to objectively assess quality of diabetic control. 9. History of tracheostomy (~2013) - Noted. 10. History rheumatic fever - Stable. 11. History of paroxysmal atrial fibrillation (2019); on baby aspirin daily - Noted with patient currently in NSR. 12. History of cor pulmonale - Noted. 13. History of RBBB and Left posterior fascicular block - Stable. 14. History of thoracic outlet syndrome - Noted. 15. History of vitamin D deficiency - Check vitamin D level this admission. 16. History of vitamin B12 deficiency - Check B12 level this admission. 17. Seasonal allergies; on loratadine plus fluticasone nasal spray - Maintain current regimen. 18. RLS - Stable. 19. History of fibromyalgia - Noted. 20. Depression; on duloxetine - Resume duloxetine as before. 21. History of TMJ dysfunction - Noted with no evidence of recurrence at this time. 22. History of hysterectomy - Noted for the sake of completeness. 23. History of diverticulitis - Noted. 24. History of umbilical hernia; s/p repair - Noted. 25. GERD; on esomeprazole BID - Continue PPI as previous. 26. OA; s/p TKR and radiofrequency ablation of a nerve of the cervical spine onnaproxen twice daily plus baclofen 3 times daily for muscle spasms - Give acetaminophen prn as per pain scale outlined in #1. Maintain current baclofen dosing and frequency. 27. DVT prophylaxis - Lovenox 40 mg sq daily plus SCD's. Total time: Approximately (but not less than) 75 minutes. Charges/Coding Visit Charges Inpatient E&M: 12734 Init Hosp L3 01/02/25 0643 <Electronically signed by Sunil Muir DO> Cosigner Signature (if applicable): CC: Dr. Mariola Magdaleno MD; Dr. Sunil Muir DO~ Signed [facility] Work Phone: [phone] History and physical note [facility] Medical Records Department [address] [place] [address] H&P Exam - Hospitalist 01/01/252114 MR#: [id number] Acct: [id number] Name: TISH BUTLER YOLI Rep #:[id number] : 1950 74 From: Sunil Duran DO PCP: Dr. Mariola Magdaleno MD Status:ADM IN [id number] - General General Date of Admission: 01/01/25 Date of Service: 01/01/25 Chief Complaint: SOB, Cough and Generalized Weakness. HPI Narrative TISH BUTLER, is a 74 F with a past history of essential hypertension; on lisinopril, metoprololand furosemide 20 mg p.o. twice daily, hyperlipidemia; onatorvastatin, obesity; with BMI of 37.5 this admission, SELENA; on CPAP, history oftobacco abuse (quit 1979); with subsequent COPD, chronic hypoxic respiratory failure; on 2.5L NC continuous, history of tracheostomy (~2013), DM-2; of unknown control on insulin glargine 32 units sq every PM, history rheumatic fever, history of paroxysmal atrialfibrillation (2019); on baby aspirin daily, history of cor pulmonale, history of RBBB and Left posterior fascicular block, history of thoracic outlet syndrome, history of vitamin D deficiency, history ofvitamin B12 deficiency, seasonal allergies; on loratadine plus fluticasone nasalspray, RLS, history of fibromyalgia, depression; on duloxetine, history of TMJ dysfunction, history of hysterectomy,history of diverticulitis, history of umbilical hernia; s/p repair, GERD; on esomeprazole BID and OA; s/p TKR and radiofrequency ablation of a nerve of the cervical spine on naproxen twice dailyplus baclofen 3 times daily for muscle spasms with patient using a walker at baseline for ambulation who presents to [facility] ER complaining of shortness of breath, cough and generalized weakness. Mrs. Butler reports her symptoms began on Tuesday, December 29, 2024 with a gradual-onset of progressively worsening cough productive of yellowish sputum with generalized weakness. She also admits to worsening shortness of breath with chills. He was also sick with a similar viral illness just prior to her apparently catching it from him. She denies associated fever, changes invision, chestpain, palpitations, heart racing, abdominal pain, nausea, vomiting, diarrhea, constipation, dysuria, hematuria, rash or headache. In the ER she was noted to have a viral assay returned positive for Influenza A complicated by clinical evidence of mild AE COPD with Nfnur-nh-Rhivcio Respiratory Insuffi ciency compounded by suspected Acute Bacterial Bronchitis with Generalized Weakness and she was then admitted to the general medical floorfor ongoing care for stay that is expected to extend beyond 2midnights. 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 Obesity Chronic respiratory failure with hypoxia, on home O2 therapy History of rheumatic fever Hyperlipidemia SELENA (obstructive sleep apnea) Osteoarthritis Paroxysmal atrial fibrillation (07/2020) Restless legs syndrome (RLS) H/O fibromyositis Fibromyalgia Essential tremor Depression Chronic low back pain Essential hypertension Class 2 obesity with body mass index (BMI) of 39.0 to 39.9 in adult Type 2 diabetes mellitus with diabetic polyneuropathy Vitamin D deficiency Vitamin B 12 deficiency Cor pulmonale Atrial fibrillation Irregular heart beat COPD (chronic obstructive pulmonary disease) Home Medications ?Medication ?Instructions ?Recorded ?Last Taken ?Type fluticasone propionate 50 2 spray intranasal DAILY 08/3105/19/22 History mcg/actuation nasal spray,suspension loratadine 10 mg capsule 10 mg PO DAILY 03/20/22 Unkn own History aspirin 81 mg tablet,delayed 81 mg PO DAILY 04/02/22 0 04/23/22 History release (Adult Low Dose Aspirin) albuterol sulfate 90 mcg/actuation 2 puff inhalation Q 6H PRN 04/20/22 Unknown Rx aerosol inhaler shortness of breath or wheez ing #8.5 grams albuterol sulfate 2.5 mg/3 mL 2.5 mg continuous nebuli zation 09/16/22 Unknown History (0.083 %) solution for nebulization emollient (Vanicream topical) applic topical 02/28/23 Unknown History sodium chloride-aloe vera nasal 1 applic topical HS WA N 02/28/23 Unknown History gel ([place] Saline nasal gel) fluticasone fur. 200 mcg-umeclid 1 inh inhalation TEREZA Y 04/11/23 Unknown History 62.5 mcg-vilant 25 mcg inhalat.powder (Trelegy Ellipta) insulin glargine 100 unit/mL 32 unit subcut QPM Unknown History subcutaneous cartridge blood sugar diagnostic (Accu-Chek #300 ea 01/02/24 Unk nown Rx SmartView Test Strips) blood-glucose meter (OneTouch #1 ea 03/19/24 Unknown R x Verio Flex Meter) azelastine 137 mcg (0.1 %) nasal 1 spray intranasal BI D PRN 04/04/24 Unknown Rx spray congestion #30 mL atorvastatin 40 mg tablet (Lipitor) 40 mg PO DAILY #90 tabs 05/02/24 Unknown Rx baclofen 10 mg tablet 10 mg PO TID PRN 05/02/24 Un known History naproxen sodium 220 mg capsule 220 mg PO Q12H PRN 04/10 01/31 Unknown History (Aleve) duloxetine 40 mg capsule,delayed 40 mg PO DAILY #90 ca ps 09/05/24 Unknown Rx release blood sugar diagnostic (OneTouch #100 ea 10/23/24 Unkn own Rx Verio test strips) esomeprazole magnesium 40 mg 40 mg PO BID #180 caps Unknown Rx capsule,delayed release insulin glargine 100 unit/mL (3 32 unit (0.32 mL) subc ut QPM #15 mL 10/23/24 Unknown Rx mL) subcutaneous pen lisinopril 5 mg tablet 5 mg PO DAILY #90 tabs 10/23 Unknown Rx metoprolol succinate 50 mg 50 mg PO DAILY #90 tabs Unknown Rx tablet,extended release 24 hr (Toprol XL) montelukast 10 mg tablet 10 mg PO QHS #90 tabs Unknown Rx potassium chloride 20 mEq 20 meq PO DAILY #90 TABLETS 10/23/24 Unknown Rx tablet,extended release(part/cryst) (Klor-Con M) furosemide 20 mg tablet 40 mg (2 x 20 mg) PO BID #18 0 tabs 12/20/24 Unknown Rx insulin syringe-needle U-100 0.3 #50 ea 12/20/24 Unkno wn Rx mL 31 gauge x 5/16 (BD Insulin Syringe Ultra-Fine) Allergy/AdvReac Type Severity Reaction Status Date / Time cat dander Allergy Severe Inflammation Verified 01/01/25 17:28 of lung house dust Allergy Nasal Verified 01/01/25 17:28 congestion and watery eyes meperidine (From Demerol) Allergy Itching Verified 01/01/25 17:28 mold Allergy nasal Verified 01/01/25 17:28 congestion and watery eyes Penicillins (PCN) Allergy Hives Verified 01/01/25 17:28 tree and shrub pollen Allergy Other Verified 01/01/25 17:28 Family History Mother COPD (chronic obstructive pulmonary disease) Colon cancer Father COPD (chronic obstructive pulmonary disease) Myocardial infarction Alcoholism Emphysema lung Sister Breast cancer Cancer Lung cancer Brother COPD (chronic obstructive pulmonary disease) Aunt Diabetes Surgical History Hx of cataract surgery History of bilateral cataract extraction H/O esophagogastroduodenoscopy History of cardiac catheterization History of thumb surgery History of tracheostomy (~2013) History of radiofrequency ablation (RFA) of nerve of cervical spine History of knee replacement History of colonoscopy (~01/2022) History of dilatation and curettage History of tonsillectomy History of umbilical hernia repair H/O: hysterectomy Social History household members: spouse current occupational status: retired 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 Eyes: Patient denies change in vision or discharge from eyes. ENT: Patient admits to runny nose but she denies sore throat or ear pain. Resp: Patient admits to dyspnea on exertion with cough increasingly productive of yellowish sputum. CV: Patient denies chest pain, palpitations, heart racing or lower extremity edema. GI: Patient denies abdominal pain, nausea, vomiting, diarrhea or constipation. : Patient denies dysuria or hematuria. MSK: Patient admits to diffuse myalgias. Skin: Patient denies rash, abscess, wounds or jaundice. Psych: Patient denies symptoms of uncontrolled depression or anxiety. Neuro: Patient denies headache, paresthesias or focal neurologic deficits. Allergy: Patient denies lip swelling, tongue swelling or urticaria. Hematology: Patient denies easy bleeding or easy bruisability. Endocrinology: Patient denies polyuria, polydipsia, polyphagia or cold/heat intolerance. 14 point ROS otherwise negative except for positives noted above in HPI. Vital Signs Vital Signs Vital Signs: 01/01/25 17:27 01/01/25 17:57 01/01/25 18:18 Temperature 98.3 F 98.4 F Temperature Source Oral Oral Pulse Rate 90 74 97 Respiratory Rate 24 H 25 H 20 H Respiratory Pattern Normal Blood Pressure 112/68 97/53 L Blood Pressure Mean 82 67 Pulse Ox 97 95 Oxygen Delivery Method Nasal Cannula Nasal Cannula Oxygen Flow Rate (L/min) 2 2 01/01/25 18:24 01/01/25 18:30 01/01/25 19:00 Temperature 98.4 F 98.2 F Temperature Source Oral Oral Pulse Rate 78 83 Respiratory Rate 12 28 H Respiratory Pattern Blood Pressure 105/62 116/59 L Blood Pressure Mean 76 78 Pulse Ox 98 98 95 Oxygen Delivery Method Nasal Cannula Nasal Cannula Nasal Cannula Oxygen Flow Rate (L/min) 2 2 2 01/01/25 20:00 01/01/25 21:00 Temperature 98.3 F 98.2 F Temperature Source Oral Oral Pulse Rate 88 85 Respiratory Rate 23 H 26 H Respiratory Pattern Blood Pressure 103/66 148/76 H Blood Pressure Mean 78 100 Pulse Ox 95 98 Oxygen Delivery Method Nasal Cannula Nasal Cannula Oxygen Flow Rate (L/min) 2 2 Weight Weight: 225 lb 4.8 oz Body Mass Index (BMI) 37.5 Physical Exam Const alert, oriented x3 and no apparent distress Constitutional Narrative: Obese with chronically ill appearance. General Appearance: cooperative HEENT normocephalic, head/scalp atraumatic, hearing grossly normal bilaterally and moist oral mucous membranes Eyes PERRL, EOMs intact bilaterally and conjunctivae normal Neck no lymphadenopathy and supple Resp Resp Narrative: Patient has diffuse expiratory wheezing noted throughout all lung cowart. Auscultation: wheezes Cardio regular rate and regular rhythm GI normal to inspection, nondistended, normoactive bowel sounds, soft to palpation,non-tender and non-distended GI Narrative: Obese. Extremity normal to inspection, full ROM and no clubbing, cyanosis or edema Skin Skin Narrative: Patient has evidence of rash, abscess, wounds or jaundice. Neuro oriented x3, CN's II-XII intact bilaterally, moves all extremities and no focal motor deficits Sensorium / Orientation: awake, alert, oriented to person, oriented to place andoriented to time Speech: speech normal Psych affect normal Results Medical Records Data Attestation: I reviewed the patient's medical records Lab / Micro Data Attestation: I reviewed the patient's lab results. 01/01/25 17:50 01/01/25 17:50 Labs: Laboratory Results - last 24 hr 01/01/25 17:50: WBC 6.8, RBC 4.19 L, Hgb 12.6, Hct 38.6, MCV 92.1, MCH 30.1, MCHC 32.6, RDW Std Deviation 45.6 H, RDW Coeff of Gil 13.4, Plt Count 175, MPV 10.3, Immature Gran % (Auto) 0.400, Neut % (Auto) 74.6 H, Lymph % (Auto) 7.2 L, [place] % (Auto) 17.1 H, Eos % (Auto) 0.1, Baso % (Auto) 0.6, Absolute Neuts (auto)5.1, Absolute Lymphs (auto) 0.49 L, Nucleated RBC % 0, Sodium 138, Potassium 3.8, Chloride 103, Carbon Dioxide 22.5, Anion Gap 13, BUN 13, Creatinine 1.05, Estim Creat Clear Calc 54.87, Est GFR (MDRD) Non-Af 55 L, BUN/Creatinine Ratio 12.4, Glucose 92, Calcium 8.7, Troponin T High Sens 19 H, NT pro BNP II 732 01/01/25 18:18: PT 15.1 H, INR 1.2, APTT 30.4, Lactic Acid 1.1 Micro: Microbiology 01/01/25 17:53 Mucosa - Nose SARS-CoV-2, Influenza & RSV (PCR) - Final Influenzae A Imaging Radiology Impression Chest X-Ray 01/01/25 17:55 IMPRESSION: Stable left diaphragmatic elevation. Pulmonary findings are grossly unchanged when compared to prior examination dating back to 03/24/2023. Reading Location: [id number] Assessment & Plan Assessment/Plan (1) Influenza A: (2) COPD exacerbation: (3) Acute bacterial bronchitis: (4) Respiratory insufficiency: (5) Chronic respiratory failure with hypoxia, on home O2 therapy: (6) Generalized weakness: (7) Myalgia: (8) Malaise: (9) Obesity (BMI 30-39.9): (10) SELENA (obstructive sleep apnea): PLAN: Plan 1. Viral assay returned positive for Influenza A - Admit to general medical floor under contact anddroplet precautions. Start oseltamivir 30 mg PO BID x 5days. Give vitamin D3, vitamin C and zinc tohelp boost immunity and hopefully speed recovery. Give acetaminophen prn for [id number] (level 1-5/10) painor fever. Give oxycodone prn for severe (level 6-10/10) pain. 2. AE COPD with [id number] Respiratory insufficiency due to #1 with suspected evolving Acute Bacterial Bronchitis - Start doxycycline IV plus methylprednisolone IV and wean as tolerated. Wean supplemental oxygen back downto baseline levels as tolerated. Give mucolytics as needed. 3. Generalized Weakness with Diffuse Myalgias and Malaise attributable to #1 & #2 with patient using a walker at baseline for ambulation at baseline - PT/OT and Case Management to consult and treat on rounds in AM for further recommendations with help appreciated in advance. 4. Obesity; with BMI of 37.5 this admission plus SELENA; on CPAP adding to the burden of disease outlined from #1 - #3 - Weight loss will be recommended. Check TSH. Resume nocturnal CPAP as previous. This complicates her case and may hamper recovery. 5. Essential Hypertension; on lisinopril, metoprolol and furosemide 20 mg p.o. twice daily - Continue home regimen plus give prn IV hydralazine for systolic blood pressure > 160 mmHg. 6. Hyperlipidemia; on atorvastatin - Maintain statin and check Lipid Profile. 7. History of tobacco abuse (quit 1979); with subsequent COPD and chronic hypoxic respiratory failure; on 2.5L NC continuous - Treatment plan noted in #2. 8. DM-2; of unknown control on insulin glargine 32 units sq every PM - Resume current treatment plus augment with FSBS q. AC/HS plus medium intensity SSI. Check HgbA1c to objectively assess quality of diabetic control. 9. History of tracheostomy (~2013) - Noted. 10. History rheumatic fever - Stable. 11. History of paroxysmal atrial fibrillation (2019); on baby aspirin daily - Noted with patient currently in NSR. 12. History of cor pulmonale - Noted. 13. History of RBBB and Left posterior fascicular block - Stable. 14. History of thoracic outlet syndrome - Noted. 15. History of vitamin D deficiency - Check vitamin D level this admission. 16. History of vitamin B12 deficiency - Check B12 level this admission. 17. Seasonal allergies; on loratadine plus fluticasone nasal spray - Maintain current regimen. 18. RLS - Stable. 19. History of fibromyalgia - Noted. 20. Depression; on duloxetine - Resume duloxetine as before. 21. History of TMJ dysfunction - Noted with no evidence of recurrence at this time. 22. History of hysterectomy - Noted for the sake of completeness. 23. History of diverticulitis - Noted. 24. History of umbilical hernia; s/p repair - Noted. 25. GERD; on esomeprazole BID - Continue PPI as previous. 26. OA; s/p TKR and radiofrequency ablation of a nerve of the cervical spine onnaproxen twice dailyplus baclofen 3 times daily for muscle spasms - Give acetaminophen prn as per pain scale outlined in #1. Maintain current baclofen dosing and frequency. 27. DVT prophylaxis - Lovenox 40 mg sq daily plus SCD's. Total time: Approximately (but not less than) 75 minutes. Charges/Coding Visit Charges Inpatient E&M: 78450 Init Hosp L3 01/02/25 0643 Cosigner Signature (if applicable): CC: Dr. Mariola Magdaleno MD; Dr. Sunil Muir DO~ Signed [facility]03-26-2025 Discharge summary Author Brent Rico [facility] Note Date/Time January 02, 2025 12: 41am [facility] Medical Records Department [address] [place] [address] Emergency Department Summary 01/01/25 MR#: [id number] Acct: [id number] Name: TISH BUTLER YOLI Rep #:[id number] : 1950 74 From: Brent Rico DO PCP: Dr. Mariola Magdaleno MD Status:ADM IN [id number] History of Present Illness Chief Complaint: Cold Sx Narrative Narrative: Patient is a 74-year-old female with past medical history of GERD, diabetes, hypertension, SELENA, COPD on 2 L nasal cannula chronically who presents to the emergency department with a chief complaint of cough, generalized bodyaches, generalized weakness and not feeling well. Patient states that around Tuesday she started to feel ill and states that chronically got worse prompting her to come here for further evaluation management. Patient states that she was aroundsome family members are ill recently as well. 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 Obesity Chronic respiratory failure with hypoxia, on home O2 therapy History of rheumatic fever Hyperlipidemia SELENA (obstructive sleep apnea) Osteoarthritis Paroxysmal atrial fibrillation (07/2020) Restless legs syndrome (RLS) H/O fibromyositis Fibromyalgia Essential tremor Depression Chronic low back pain Essential hypertension Class 2 obesity with body mass index (BMI) of 39.0 to 39.9 in adult Type 2 diabetes mellitus with diabetic polyneuropathy Vitamin D deficiency Vitamin B 12 deficiency Cor pulmonale Atrial fibrillation Irregular heart beat COPD (chronic obstructive pulmonary disease) Home Medications ?Medication ?Instructions ?Recorded ?Last Taken ?Type fluticasone propionate 50 2 spray intranasal DAILY 08/3105/19/22 History mcg/actuation nasal spray,suspension loratadine 10 mg capsule 10 mg PO DAILY 03/20/22 Unkn own History aspirin 81 mg tablet,delayed 81 mg PO DAILY 04/02/22 0 04/23/22 History release (Adult Low Dose Aspirin) albuterol sulfate 90 mcg/actuation 2 puff inhalation Q 6H PRN 04/20/22 Unknown Rx aerosol inhaler shortness of breath or wheez ing #8.5 grams albuterol sulfate 2.5 mg/3 mL 2.5 mg continuous nebuli zation 09/16/22 Unknown History (0.083 %) solution for nebulization emollient (Vanicream topical) applic topical 02/28/23 Unknown History sodium chloride-aloe vera nasal 1 applic topical HS WA N 02/28/23 Unknown History gel ([place] Saline nasal gel) fluticasone fur. 200 mcg-umeclid 1 inh inhalation TEREZA Y 04/11/23 Unknown History 62.5 mcg-vilant 25 mcg inhalat.powder (Trelegy Ellipta) insulin glargine 100 unit/mL 32 unit subcut QPM Unknown History subcutaneous cartridge blood sugar diagnostic (Accu-Chek #300 ea 01/02/24 Unk nown Rx SmartView Test Strips) blood-glucose meter (OneTouch #1 ea 03/19/24 Unknown R x Verio Flex Meter) azelastine 137 mcg (0.1 %) nasal 1 spray intranasal BI D PRN 04/04/24 Unknown Rx spray congestion #30 mL atorvastatin 40 mg tablet (Lipitor) 40 mg PO DAILY #90 tabs 05/02/24 Unknown Rx baclofen 10 mg tablet 10 mg PO TID PRN 07/24/24 Un known History naproxen sodium 220 mg capsule 220 mg PO Q12H PRN 04/10 01/31 Unknown History (Aleve) duloxetine 40 mg capsule,delayed 40 mg PO DAILY #90 ca ps 09/05/24 Unknown Rx release blood sugar diagnostic (OneTouch #100 ea 10/23/24 Unkn own Rx Verio test strips) esomeprazole magnesium 40 mg 40 mg PO BID #180 caps Unknown Rx capsule,delayed release insulin glargine 100 unit/mL (3 32 unit (0.32 mL) subc ut QPM #15 mL 10/23/24 Unknown Rx mL) subcutaneous pen lisinopril 5 mg tablet 5 mg PO DAILY #90 tabs 10/23 Unknown Rx metoprolol succinate 50 mg 50 mg PO DAILY #90 tabs Unknown Rx tablet,extended release 24 hr (Toprol XL) montelukast 10 mg tablet 10 mg PO QHS #90 tabs Unknown Rx potassium chloride 20 mEq 20 meq PO DAILY #90 TABLETS 10/23/24 Unknown Rx tablet,extended release(part/cryst) (Klor-Con M) furosemide 20 mg tablet 40 mg (2 x 20 mg) PO BID #18 0 tabs 12/20/24 Unknown Rx insulin syringe-needle U-100 0.3 #50 ea 12/20/24 Unkno wn Rx mL 31 gauge x 5/16 (BD Insulin Syringe Ultra-Fine) Allergy/AdvReac Type Severity Reaction Status Date / Time cat dander Allergy Severe Inflammation Verified 01/01/25 17:28 of lung house dust Allergy Nasal Verified 01/01/25 17:28 congestion and watery eyes meperidine (From Demerol) Allergy Itching Verified 01/01/25 17:28 mold Allergy nasal Verified 01/01/25 17:28 congestion and watery eyes Penicillins (PCN) Allergy Hives Verified 01/01/25 17:28 tree and shrub pollen Allergy Other Verified 01/01/25 17:28 Family History Mother COPD (chronic obstructive pulmonary disease) Colon cancer Father COPD (chronic obstructive pulmonary disease) Myocardial infarction Alcoholism Emphysema lung Sister Breast cancer Cancer Lung cancer Brother COPD (chronic obstructive pulmonary disease) Aunt Diabetes Surgical History Hx of cataract surgery History of bilateral cataract extraction H/O esophagogastroduodenoscopy History of cardiac catheterization History of thumb surgery History of tracheostomy (~2013) History of radiofrequency ablation (RFA) of nerve of cervical spine History of knee replacement History of colonoscopy (~01/2022) History of dilatation and curettage History of tonsillectomy History of umbilical hernia repair H/O: hysterectomy Social History household members: spouse current occupational status: retired 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 Smoking Status: Former smoker quit date: 02/08/80 Tobacco: How many years used: 20 Electronic Cigarette Use: not used alcohol intake: never substance use type: does not use caffeine: Yes do you feel safe at home: Yes ROS ROS ED ROS Narrative Constitutional: Complains of chills diffuse bodyaches, not feeling well overall Eyes: Denies change in vision double vision blurry vision Cardiovascular: Denies chest pain or palpitations Respiratory: Complains of cough as noted above with increased sputum production Abdomen: Denies nausea vomit diarrhea : Denies urinary symptoms Neurological: Denies numbness, weakness, tingling Musculoskeletal: Denies back pain Skin: Denies rashes or lesions EXAM Physical Exam Narrative Exam Narrative: General: Patient lying in bed rest comfortably not appear to be in acute distress Head: Atraumatic, normocephalic Eyes: PERRL bilaterally, EOMI bilateral, no conjunctival injection noted Neck: Soft, supple, trachea midline Cardiovascular: Regular rate and rhythm no murmurs gallops rubs noted Respiratory: Patient has had expiratory wheezing noted bilaterally Abdomen: No tenderness palpation Extremities: +5/5 strength noted in the bilateral upper and lower extremities, radial pulses +2/4 in the bilateral extremities, no pedal edema on exam Neurological: Patient following commands and that she was at [facility] years 2024 Skin: Warm, dry, intact no rashes or lesions noted Const Vital Signs: 01/01/25 17:27 01/01/25 17:57 01/01/25 18:18 Temperature 98.3 F 98.4 F Temperature Source Oral Oral Pulse Rate 90 74 97 Respiratory Rate 24 H 25 H 20 H Respiratory Pattern Normal Blood Pressure 112/68 97/53 L Blood Pressure Mean 82 67 Pulse Ox 97 95 Oxygen Delivery Method Nasal Cannula Nasal Cannula Oxygen Flow Rate (L/min) 2 2 01/01/25 18:24 01/01/25 18:30 01/01/25 19:00 Temperature 98.4 F 98.2 F Temperature Source Oral Oral Pulse Rate 78 83 Respiratory Rate 12 28 H Respiratory Pattern Blood Pressure 105/62 116/59 L Blood Pressure Mean 76 78 Pulse Ox 98 98 95 Oxygen Delivery Method Nasal Cannula Nasal Cannula Nasal Cannula Oxygen Flow Rate (L/min) 2 2 2 01/01/25 20:00 01/01/25 21:00 Temperature 98.3 F 98.2 F Temperature Source Oral Oral Pulse Rate 88 85 Respiratory Rate 23 H 26 H Respiratory Pattern Blood Pressure 103/66 148/76 H Blood Pressure Mean 78 100 Pulse Ox 95 98 Oxygen Delivery Method Nasal Cannula Nasal Cannula Oxygen Flow Rate (L/min) 2 2 MDM MDM MDM Narrative Medical decision making narrative: Patient is a 74-year-old female who presented to the emergency department with achief complaint of cough and shortness of breath. On the differential diagnose includes but not limited to upper respiratory infection secondary viral etiology, pneumonia, pneumothorax, COPD exacerbation. Once workup is obtained reviewed she will be reevaluated. Patient be given 3 DuoNebs and prednisone. Patient's CBC reviewed and showed evidence of leukocytosis 6.8, he was 12.6, plate count normal at 75. Patient INR 1.2, PT of 15.1. Patient sodium 130, potassium normal 3.8, creatinine normal 1.05. Patient lactic acid normal 0.1, troponin was 19 delta troponin pending EKG showed a sinus rhythm with a rate of 75 beats per minutes with evidence of incomplete right bundle branch block. Patient's proBNP was 732 urinalysis pending. Patient's chest x-ray reviewed by myself and by radiology showed stable left diaphragmatic elevation. The pulmonary findings grossly unchanged when compared to prior examination dating back to 03/24/2023. Patient did test positive for influenza A. Patient ambulated here in the emergency department on her 2 L nasal cannula and she had hypoxia down to 87%. Will discuss case with hospitalist for admission. Discussed case with hospitalist Dr. Gonzalez who accept patient for admission. Patient was notified is agreeable this plan all question concerns were answered at bedside. Lab Data Labs: Laboratory Results - last 24 hr 01/01/25 01/01/25 01/01/25 17:50 18:18 20:23 WBC 6.8 RBC 4.19 L Hgb 12.6 Hct 38.6 MCV 92.1 MCH 30.1 MCHC 32.6 RDW Std Deviation 45.6 H RDW Coeff of Gil 13.4 Plt Count 175 MPV 10.3 Immature Gran % (Auto) 0.400 Neut % (Auto) 74.6 H Lymph % (Auto) 7.2 L [place] % (Auto) 17.1 H Eos % (Auto) 0.1 Baso % (Auto) 0.6 Absolute Neuts (auto) 5.1 Absolute Lymphs (auto) 0.49 L Nucleated RBC % 0 PT 15.1 H INR 1.2 APTT 30.4 Sodium 138 Potassium 3.8 Chloride 103 Carbon Dioxide 22.5 Anion Gap 13 BUN 13 Creatinine 1.05 Estim Creat Clear Calc 54.87 Est GFR (MDRD) Non-Af 55 L BUN/Creatinine Ratio 12.4 Glucose 92 Hemoglobin A1c 6.2 Lactic Acid 1.1 Calcium 8.7 Troponin T High Sens 19 H Troponin T Hi Sens 2 Hr 19 H NT pro BNP II 732 Urine Color Urine Clarity Urine pH Ur Specific [place] Urine Protein Urine Glucose (UA) Urine Ketones Urine Occult Blood Urine Nitrite Urine Bilirubin Urine Urobilinogen Ur Leukocyte Esterase Urine RBC Urine WBC Ur Squamous Epith Cells Urine Bacteria Urine Mucus 01/01/25 21:00 WBC RBC Hgb Hct MCV MCH MCHC RDW Std Deviation RDW Coeff of Gil Plt Count MPV Immature Gran % (Auto) Neut % (Auto) Lymph % (Auto) [place] % (Auto) Eos % (Auto) Baso % (Auto) Absolute Neuts (auto) Absolute Lymphs (auto) Nucleated RBC % PT INR APTT Sodium Potassium Chloride Carbon Dioxide Anion Gap BUN Creatinine Estim Creat Clear Calc Est GFR (MDRD) Non-Af BUN/Creatinine Ratio Glucose Hemoglobin A1c Lactic Acid Calcium Troponin T High Sens Troponin T Hi Sens 2 Hr NT pro BNP II Urine Color Yellow Urine Clarity Sl. Cloudy Urine pH 6.0 Ur Specific [place] 1.020 Urine Protein 30 H Urine Glucose (UA) Normal Urine Ketones Negative Urine Occult Blood 10 H Urine Nitrite Negative Urine Bilirubin Negative Urine Urobilinogen Normal Ur Leukocyte Esterase 25 H Urine RBC 0 SEEN Urine WBC 0-5 SEEN Ur Squamous Epith Cells 0-5 SEEN Urine Bacteria RARE Urine Mucus 0 SEEN Radiography Diagnostic Testing: Clinical Impression(s) from Imaging Studies Chest X-Ray 01/01/25 17:55 IMPRESSION: Stable left diaphragmatic elevation. Pulmonary findings are grossly unchanged when compared to prior examination dating back to 03/24/2023. Reading Location: [id number] Discharge Plan Dx/Rx/DC Orders Clinical Impression: Acute on chronic hypoxic respiratory failure, Influenza A, COPD exacerbation Disposition Disposition: Acute Care Hospital [facility] Discharge Date/Time: 01/01/25 22:26 What to do if you have Problems For any increased pain, shortness of breath, bleeding, nausea or vomiting, chestpain, or any unexpected problems, contact your Primary Care Provider. Call [facility] ([phone]) or report to the closest Emergency Room. Call 911 if necessary. 01/02/25 0041 <Electronically signed by Brent Rico DO> Cosigner Signature (if applicable): CC: Dr. Mariola Magdaleno MD ~ Signed [facility] Work Phone: [phone] [facility] Medical Records Department [address] [place] [id number] Emergency Department Summary 01/01/25 MR#: [id number] Acct: [id number] Name: TISH BUTLER Rep #:[id number] : 1950 74 From: Brent Rico DO PCP: Dr. Mariola Magdaleno MD Status:ADM IN Location: [facility] AZ702-5 HPI History of Present Illness Chief Complaint: Cold Sx Narrative Narrative: Patient is a 74-year-old female with past medical history of GERD, diabetes, hypertension, SELENA, COPD on 2 L nasal cannula chronically who presents to the emergency department with a chief complaint of cough, generalized bodyaches, generalized weakness and not feeling well. Patient states that around Tuesday she started to feel ill and states that chronically got worse prompting her to come here for further evaluation management. Patient states that she was aroundsome family members are ill recently as well. 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 Obesity Chronic respiratory failure with hypoxia, on home O2 therapy History of rheumatic fever Hyperlipidemia SELENA (obstructive sleep apnea) Osteoarthritis Paroxysmal atrial fibrillation (07/2020) Restless legs syndrome (RLS) H/O fibromyositis Fibromyalgia Essential tremor Depression Chronic low back pain Essential hypertension Class 2 obesity with body mass index (BMI) of 39.0 to 39.9 in adult Type 2 diabetes mellitus with diabetic polyneuropathy Vitamin D deficiency Vitamin B 12 deficiency Cor pulmonale Atrial fibrillation Irregular heart beat COPD (chronic obstructive pulmonary disease) Home Medications ?Medication ?Instructions ?Recorded ?Last Taken ?Type fluticasone propionate 50 2 spray intranasal DAILY 08/3105/19/22 History mcg/actuation nasal spray,suspension loratadine 10 mg capsule 10 mg PO DAILY 03/20/22 Unkn own History aspirin 81 mg tablet,delayed 81 mg PO DAILY 04/02/22 0 04/23/22 History release (Adult Low Dose Aspirin) albuterol sulfate 90 mcg/actuation 2 puff inhalation Q 6H PRN 04/20/22 Unknown Rx aerosol inhaler shortness of breath or wheez ing #8.5 grams albuterol sulfate 2.5 mg/3 mL 2.5 mg continuous nebuli zation 09/16/22 Unknown History (0.083 %) solution for nebulization emollient (Vanicream topical) applic topical 02/28/23 Unknown History sodium chloride-aloe vera nasal 1 applic topical HS WA N 02/28/23 Unknown History gel ([place] Saline nasal gel) fluticasone fur. 200 mcg-umeclid 1 inh inhalation TEREZA Y 04/11/23 Unknown History 62.5 mcg-vilant 25 mcg inhalat.powder (Trelegy Ellipta) insulin glargine 100 unit/mL 32 unit subcut QPM Unknown History subcutaneous cartridge blood sugar diagnostic (Accu-Chek #300 ea 01/02/24 Unk nown Rx SmartView Test Strips) blood-glucose meter (OneTouch #1 ea 03/19/24 Unknown R x Verio Flex Meter) azelastine 137 mcg (0.1 %) nasal 1 spray intranasal BI D PRN 04/04/24 Unknown Rx spray congestion #30 mL atorvastatin 40 mg tablet (Lipitor) 40 mg PO DAILY #90 tabs 05/02/24 Unknown Rx baclofen 10 mg tablet 10 mg PO TID PRN 05/02/24 Un known History naproxen sodium 220 mg capsule 220 mg PO Q12H PRN 04/10 01/31 Unknown History (Aleve) duloxetine 40 mg capsule,delayed 40 mg PO DAILY #90 ca ps 09/05/24 Unknown Rx release blood sugar diagnostic (OneTouch #100 ea 10/23/24 Unkn own Rx Verio test strips) esomeprazole magnesium 40 mg 40 mg PO BID #180 caps Unknown Rx capsule,delayed release insulin glargine 100 unit/mL (3 32 unit (0.32 mL) subc ut QPM #15 mL 10/23/24 Unknown Rx mL) subcutaneous pen lisinopril 5 mg tablet 5 mg PO DAILY #90 tabs 10/23 Unknown Rx metoprolol succinate 50 mg 50 mg PO DAILY #90 tabs Unknown Rx tablet,extended release 24 hr (Toprol XL) montelukast 10 mg tablet 10 mg PO QHS #90 tabs Unknown Rx potassium chloride 20 mEq 20 meq PO DAILY #90 TABLETS 10/23/24 Unknown Rx tablet,extended release(part/cryst) (Klor-Con M) furosemide 20 mg tablet 40 mg (2 x 20 mg) PO BID #18 0 tabs 12/20/24 Unknown Rx insulin syringe-needle U-100 0.3 #50 ea 12/20/24 Unkno wn Rx mL 31 gauge x 5/16 (BD Insulin Syringe Ultra-Fine) Allergy/AdvReac Type Severity Reaction Status Date / Time cat dander Allergy Severe Inflammation Verified 01/01/25 17:28 of lung house dust Allergy Nasal Verified 01/01/25 17:28 congestion and watery eyes meperidine (From Demerol) Allergy Itching Verified 01/01/25 17:28 mold Allergy nasal Verified 01/01/25 17:28 congestion and watery eyes Penicillins (PCN) Allergy Hives Verified 01/01/25 17:28 tree and shrub pollen Allergy Other Verified 01/01/25 17:28 Family History Mother COPD (chronic obstructive pulmonary disease) Colon cancer Father COPD (chronic obstructive pulmonary disease) Myocardial infarction Alcoholism Emphysema lung Sister Breast cancer Cancer Lung cancer Brother COPD (chronic obstructive pulmonary disease) Aunt Diabetes Surgical History Hx of cataract surgery History of bilateral cataract extraction H/O esophagogastroduodenoscopy History of cardiac catheterization History of thumb surgery History of tracheostomy (~2013) History of radiofrequency ablation (RFA) of nerve of cervical spine History of knee replacement History of colonoscopy (~01/2022) History of dilatation and curettage History of tonsillectomy History of umbilical hernia repair H/O: hysterectomy Social History household members: spouse current occupational status: retired 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 Smoking Status: Former smoker quit date: 02/08/80 Tobacco: How many years used: 20 Electronic Cigarette Use: not used alcohol intake: never substance use type: does not use caffeine: Yes do you feel safe at home: Yes ROS ROS ED ROS Narrative Constitutional: Complains of chills diffuse bodyaches, not feeling well overall Eyes: Denies change in vision double vision blurry vision Cardiovascular: Denies chest pain or palpitations Respiratory: Complains of cough as noted above with increased sputum production Abdomen: Denies nausea vomit diarrhea : Denies urinary symptoms Neurological: Denies numbness, weakness, tingling Musculoskeletal: Denies back pain Skin: Denies rashes or lesions EXAM Physical Exam Narrative Exam Narrative: General: Patient lying in bed rest comfortably not appear to be in acute distress Head: Atraumatic, normocephalic Eyes: PERRL bilaterally, EOMI bilateral, no conjunctival injection noted Neck: Soft, supple, trachea midline Cardiovascular: Regular rate and rhythm no murmurs gallops rubs noted Respiratory: Patient has had expiratory wheezing noted bilaterally Abdomen: No tenderness palpation Extremities: +5/5 strength noted in the bilateral upper and lower extremities, radial pulses +2/4 in the bilateral extremities, no pedal edema on exam Neurological: Patient following commands and that she was at [facility] years 2024 Skin: Warm, dry, intact no rashes or lesions noted Const Vital Signs: 01/01/25 17:27 01/01/25 17:57 01/01/25 18:18 Temperature 98.3 F 98.4 F Temperature Source Oral Oral Pulse Rate 90 74 97 Respiratory Rate 24 H 25 H 20 H Respiratory Pattern Normal Blood Pressure 112/68 97/53 L Blood Pressure Mean 82 67 Pulse Ox 97 95 Oxygen Delivery Method Nasal Cannula Nasal Cannula Oxygen Flow Rate (L/min) 2 2 01/01/25 18:24 01/01/25 18:30 01/01/25 19:00 Temperature 98.4 F 98.2 F Temperature Source Oral Oral Pulse Rate 78 83 Respiratory Rate 12 28 H Respiratory Pattern Blood Pressure 105/62 116/59 L Blood Pressure Mean 76 78 Pulse Ox 98 98 95 Oxygen Delivery Method Nasal Cannula Nasal Cannula Nasal Cannula Oxygen Flow Rate (L/min) 2 2 2 01/01/25 20:00 01/01/25 21:00 Temperature 98.3 F 98.2 F Temperature Source Oral Oral Pulse Rate 88 85 Respiratory Rate 23 H 26 H Respiratory Pattern Blood Pressure 103/66 148/76 H Blood Pressure Mean 78 100 Pulse Ox 95 98 Oxygen Delivery Method Nasal Cannula Nasal Cannula Oxygen Flow Rate (L/min) 2 2 MDM MDM MDM Narrative Medical decision making narrative: Patient is a 74-year-old female who presented to the emergency department with achief complaint of cough and shortness of breath. On the differential diagnose includes but not limited to upper respiratory infection secondary viral etiology, pneumonia, pneumothorax, COPD exacerbation. Once workup isobtained reviewed she will be reevaluated. Patient be given 3 DuoNebs and prednisone. Patient's CBC reviewed and showed evidence of leukocytosis 6.8, he was 12.6, plate count normal at 75. Patient INR 1.2, PT of 15.1. Patient sodium 130, potassium normal 3.8, creatinine normal 1.05. Patient lactic acid normal 0.1, troponin was 19 delta troponin pending EKG showed a sinus rhythm witha rate of 75 beats per minutes with evidence of incomplete right bundle branch block. Patient's proBNP was 732 urinalysis pending. Patient's chest x-ray reviewed by myself and by radiology showed stable left diaphragmatic elevation. The pulmonary findings grossly unchanged when compared to prior examination dating back to 03/24/2023. Patient did test positive for influenza A. Patient ambulated here in the emergency department on her 2 L nasal cannula and she had hypoxia down to 87%. Will discuss case with hospitalist for admission. Discussed case with hospitalist Dr. Gonzalez who accept patient for admission. Patient was notified is agreeable this plan all question concerns were answered at bedside. Lab Data Labs: Laboratory Results - last 24 hr 01/01/25 01/01/25 01/01/25 17:50 18:18 20:23 WBC 6.8 RBC 4.19 L Hgb 12.6 Hct 38.6 MCV 92.1 MCH 30.1 MCHC 32.6 RDW Std Deviation 45.6 H RDW Coeff of Gil 13.4 Plt Count 175 MPV 10.3 Immature Gran % (Auto) 0.400 Neut % (Auto) 74.6 H Lymph % (Auto) 7.2 L [place] % (Auto) 17.1 H Eos % (Auto) 0.1 Baso % (Auto) 0.6 Absolute Neuts (auto) 5.1 Absolute Lymphs (auto) 0.49 L Nucleated RBC % 0 PT 15.1 H INR 1.2 APTT 30.4 Sodium 138 Potassium 3.8 Chloride 103 Carbon Dioxide 22.5 Anion Gap 13 BUN 13 Creatinine 1.05 Estim Creat Clear Calc 54.87 Est GFR (MDRD) Non-Af 55 L BUN/Creatinine Ratio 12.4 Glucose 92 Hemoglobin A1c 6.2 Lactic Acid 1.1 Calcium 8.7 Troponin T High Sens 19 H Troponin T Hi Sens 2 Hr 19 H NT pro BNP II 732 Urine Color Urine Clarity Urine pH Ur Specific [place] Urine Protein Urine Glucose (UA) Urine Ketones Urine Occult Blood Urine Nitrite Urine Bilirubin Urine Urobilinogen Ur Leukocyte Esterase Urine RBC Urine WBC Ur Squamous Epith Cells Urine Bacteria Urine Mucus 01/01/25 21:00 WBC RBC Hgb Hct MCV MCH MCHC RDW Std Deviation RDW Coeff of Gil Plt Count MPV Immature Gran % (Auto) Neut % (Auto) Lymph % (Auto) [place] % (Auto) Eos % (Auto) Baso % (Auto) Absolute Neuts (auto) Absolute Lymphs (auto) Nucleated RBC % PT INR APTT Sodium Potassium Chloride Carbon Dioxide Anion Gap BUN Creatinine Estim Creat Clear Calc Est GFR (MDRD) Non-Af BUN/Creatinine Ratio Glucose Hemoglobin A1c Lactic Acid Calcium Troponin T High Sens Troponin T Hi Sens 2 Hr NT pro BNP II Urine Color Yellow Urine Clarity Sl. Cloudy Urine pH 6.0 Ur Specific [place] 1.020 Urine Protein 30 H Urine Glucose (UA) Normal Urine Ketones Negative Urine Occult Blood 10 H Urine Nitrite Negative Urine Bilirubin Negative Urine Urobilinogen Normal Ur Leukocyte Esterase 25 H Urine RBC 0 SEEN Urine WBC 0-5 SEEN Ur Squamous Epith Cells 0-5 SEEN Urine Bacteria RARE Urine Mucus 0 SEEN Radiography Diagnostic Testing: Clinical Impression(s) from Imaging Studies Chest X-Ray 01/01/25 17:55 IMPRESSION: Stable left diaphragmatic elevation. Pulmonary findings are grossly unchanged when compared to prior examination dating back to 03/24/2023. Reading Location: [id number] Discharge Plan Dx/Rx/DC Orders Clinical Impression: Acute on chronic hypoxic respiratory failure, Influenza A, COPD exacerbation Disposition Disposition: Acute Care Hospital [facility] Discharge Date/Time: 01/01/25 22:26 What to do if you have Problems For any increased pain, shortness of breath, bleeding, nausea or vomiting, chestpain, or any unexpected problems, contact your Primary Care Provider. Call [facility] ([phone]) or report tothe closest Emergency Room. Call 911 if necessary. 01/02/25 0041 Cosigner Signature (if applicable): CC: Dr. Mariola Magdaleno MD ~ Signed [facility]03-25-2025 Evaluation note* Diagnosis Onset Date Resolution Status Admit Date Acute bacterial bronchitis acute January 01, 2025 9:51pm Generalized weakness acute 2024 9:51pm Influenza A acute January 01, 025 9:51pm Malaise acute January 01 9:51pm Myalgia acute January 01 9:51pm Obesity (BMI 30-39.9) acute Dec 9:51pm SELENA (obstructive sleep apnea) acute January 01, 2025 9:51pm Respiratory insufficiency acute January 01, 2025 9:51pm Acute on chronic hypoxic respiratory failure chronic January 01, 2025 9:51pm Chronic respiratory failure with hypoxia, on home O2 therapy chronic [place] h 2024 9:51pm COPD exacerbation chronic December 092024 9:51pm [facility] Work Phone: 1(380) 286-396603-25-2025 Radiology Diagnostic study note [facility] Imaging Services [address] [address] Chest PA and Lateral MR#: [id number] Acct: [id number] Name: TISH BUTLER Rep #: [id number] : 1950 F 74 From: Billy Suh MD PCP: Dr. Mariola Magdaleno MD Status: PRE ER Study:Chest PA and Lateral Date of Exam: 01/01/25 Exam# [id number] Ordering Dr: Will Rico DO EXAM: Chest x-ray CLINICAL HISTORY: Cough, shortness of breath. COMPARISON: Chest x-ray dated 03/24/2023. TECHNIQUE: PA and lateral views of the chest. FINDINGS: Stable appearance of the left diaphragm which appears elevated. Streaky changesat the left lung base which were present dating back to 2022. No definite new infiltrate is seen throughout the lungs. The right lung remains clear. No acute osseous abnormality is seen. Degenerative changes seen within the spine. RAD/Chest PA and Lateral IMPRESSION: Stable left diaphragmatic elevation. Pulmonary findings are grossly unchanged when compared to prior examination dating back to 03/24/2023. Reading Location: [id number] CC: Dr. Mariola Magdaleno MD; Dr. Brent Rico DO ~ Exhibit Designer: Signed [facility]03-25-2025 Evaluation note* Diagnosis Onset Date Resolution Status Admit Date Acute bacterial bronchitis acute January 01, 2025 9:27pm Generalized weakness acute [place] h 2024 9:27pm Influenza A acute January 01, 2 025 9:27pm Malaise acute January 01 9:27pm Myalgia acute January 01 9:27pm Obesity (BMI 30-39.9) acute Mar 2024 9:27pm SELENA (obstructive sleep apnea) acute January 01, 2025 9:27pm Respiratory insufficiency acute January 01, 2025 9:27pm Acute on chronic hypoxic respiratory failure chronic January 01, 2025 9:27pm Chronic respiratory failure with hypoxia, on home O2 therapy chronic 2024 9:27pm COPD exacerbation chronic December 092024 9:27pm [facility] Work Phone: 1(133) 249-351703-10-2025 History of Present illness Narrative* Tara Khoury MD - 12/17/2024 11:45 AM EDT Images from the original note were not included. . [facility] [place] Note Patient name: Tish Butler PCP: Mariola Magdaleno MD CC: Asthma COPD HPI: Tish Butler 74 year old female former 25 pack year smoker, quitting in 1979 with PMH significant for obesity, asthma with COPD, chronic hypoxemic respiratory failure, tracheal stenosis dueto emergent tracheostomy in 2013 (granulation tissue requiring intervention), SELENA not using CPAP, CKD. Inhaled therapy with Trelegy and albuterol. No recent URI or hospitalization. She denies any chronic cough, mucus production, wheezing or chest pain. Main symptom is dyspnea on exertion. She is compliant with use of her supplemental oxygen. DME: [employer] 2 L PAST MEDICAL HISTORY Diagnosis Date Allergies Asthma Atrial fibrillation (HCC) B12 deficiency Chronic low back pain Chronic respiratory failure with hypoxia (HCC) CKD (chronic kidney disease) COPD (chronic obstructive pulmonary disease) (HCC) Cor pulmonale (HCC) Depression Diabetes mellitus (HCC) Fibromyalgia GERD (gastroesophageal reflux disease) H/O fibromyositis HTN (hypertension) Mixed hyperlipidemia Morbid obesity (HCC) SELENA (obstructive sleep apnea) Osteoarthritis of multiple joints Rheumatic fever RLS (restless legs syndrome) Thoracic outlet syndrome Tracheal stenosis following tracheostomy (HCC) Vitamin D deficiency ALLERGIES Allergen Reactions Demerol [Meperidine] Itching Grass Pollen Shortness of Breath House Dust Unknown Mold Unknown Penicillins Unknown Tree And Shrub Poll* Unknown Vicodin [Hydrocodon* Unknown esomeprazole (NEXIUM) 40 mg capsule Take 40 mg by mouth once daily. montelukast (SINGULAIR) 10 mg tablet Take 1 tablet by mouth daily at bedtime. azelastine 0.1% nasal spray USE 1 SPRAY(S) IN EACH NOSTRIL TWICE DAILY OXYGEN, HOME THERAPY, 2 L/min by Nasal Cannula route continuous. fluticasone (FLONASE) 50 mcg/actuation nasal spray Use 1 [place] in each nostril once daily. duloxetine HCl (DULOXETINE ORAL) Take 40 mg by mouth once daily. albuterol (PROVENTIL) 2.5 mg /3 mL (0.083 %) nebulizer solution Use 3 mL via nebulizer every 4 hours as needed. baclofen (LIORESAL) 10 mg tablet Take 10 mg by mouth three times daily. lisinopril (ZESTRIL, PRINIVIL) 5 mg tablet Take 5 mg by mouth once daily. loratadine 10 mg cap Take 10 mg by mouth once daily. insulin aspart U-100 (NOVOLOG) 100 unit/mL Inject subcutaneously. insulin glargine (LANTUS) 100 unit/mL injection Inject 34 Units subcutaneously daily at bedtime. ipratropium-albuterol (DUONEB) 0.5 mg-3 mg(2.5 mg base)/3 mL nebu Inhale 3 mL as instructed every 6hours as needed. potassium chloride ER (K-DUR, KLOR-CON) 20 mEq tablet Take by mouth once daily. atorvastatin (LIPITOR) 40 mg tablet Take by mouth once daily. furosemide (LASIX) 20 mg tablet Take 20 mg by mouth. metoprolol succinate ER (TOPROL XL) 50 mg 24 hr tablet Take 50 mg by mouth once daily. aspirin, enteric coated (ASPIRIN, ENTERIC COATED) 81 mg EC tablet Take 81 mg by mouth once daily. sbctbnyqauk-zzluvtxnj-wumquest (TRELEGY ELLIPTA) 200-62.5-25 mcg inhalation powder Inhale 1 Puff asinstructed once daily. albuterol HFA (PROVENTIL HFA, VENTOLIN HFA) 90 mcg/actuation inhaler Inhale 2 Puffs as instructed every 4 hours as needed. Social History Tobacco Use Smoking status: Former Current packs/day: 0.00 Average packs/day: 1 pack/day for 25.0 years (25.0 ttl pk-yrs) Types: Cigarettes Start date: 02/07/1955 Quit date: 02/08/1980 Years since quittin.8 Smokeless tobacco: Never Vaping Use Vaping status: Never Used Substance Use Topics Alcohol use: Not Currently Drug use: Never PMH, Social history, family history and surgical history reviewed and updated in EMR REVIEW OF SYSTEMS: CONSTITUTIONAL: No fevers, chills, nightsweats, unintended weight loss HEENT: Denies current nasal congestion/sinus symptoms, allergy problems. CARDIOVASCULAR: No chest pain, palpitations, orthopnea, edema. PULM: See HPI. No nocturnal awakenings, no need for albuterol GI: No dysphagia/odynophagia, problematic reflux INTEGUMENTARY: No new skin changes PHYSICAL EXAMINATION: BP 133/81 Pulse 76 Resp 17 Wt 227 lb (103.0kg) SpO2 95% General Appearance: Obese female, NAD. Skin: Skin color, texture, turgor normal, no suspicious rashes or lesions. Head: Normocephalic, no masses, lesions, tenderness or abnormalities. Oropharynx: No oral lesions or thrush. Neck: Old tracheostomy scar. No stridor Lungs: Not labored, normal to percussion, no wheezes or crackles. Heart: Regular rate and rhythm, no murmurs or gallops. Extremities: No edema or clubbing. Assessment/Plan: 1. Asthma COPD overlap -Asthma with COPD overlap clinically stable -She will continue on high-dose Trelegy Ellipta with as needed albuterol -Refilled prescriptions 2. History of tracheostomy -No obvious tracheal stenosis 3. Chronic hypoxemic respiratory failure -Patient compliant with and benefits from supplemental oxygen 4. Class 2 obesity -BMI 39 -Weight loss advised as obesity portends poor control of asthma Tara Khoury MD [facility] NoteHNO ID: [id number] Author: TARA KHOURY MD Service: ? Author Type: Physician Type: Progress Notes Filed: 12/17/2024 19:55 Note Text: . 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 Inhaled therapy with Trelegy and albuterol. No recent URI or hospitalization. She denies any chronic cough, mucus production, wheezing or chest pain. Main symptom is dyspnea on exertion. She is compliant with use of her supplemental oxygen. DME: [employer] 2 L PAST MEDICAL HISTORY Diagnosis Date Allergies Asthma Atrial fibrillation ([facility]) B12 deficiency Chronic low back pain Chronic respiratory failure with hypoxia (HCC) CKD (chronic kidney disease) COPD (chronic obstructive pulmonary disease) ([facility]) Cor pulmonale (HCC) Depression Diabetes mellitus (HCC) Fibromyalgia GERD (gastroesophageal reflux disease) H/O fibromyositis HTN (hypertension) Mixed hyperlipidemia Morbid obesity ([facility]) SELENA (obstructive sleep apnea) Osteoarthritis of multiple joints Rheumatic fever RLS (restless legs syndrome) Thoracic outlet syndrome Tracheal stenosis following tracheostomy ([facility]) Vitamin D deficiency ALLERGIES Allergen Reactions Demerol [Meperidine] Itching Grass Pollen Shortness of Breath House Dust Unknown Mold Unknown Penicillins Unknown Tree And Shrub Poll* Unknown Vicodin [Hydrocodon* Unknown esomeprazole (NEXIUM) 40 mg capsule Take 40 mg by mouth once daily. montelukast (SINGULAIR) 10 mg tablet Take 1 tablet by mouth daily at bedtime. azelastine 0.1% nasal spray USE 1 SPRAY(S) IN EACH NOSTRIL TWICE DAILY OXYGEN, HOME THERAPY, 2 L/min by Nasal Cannula route continuous. fluticasone (FLONASE) 50 mcg/actuation nasal spray Use 1 [place] in each nostril once daily. duloxetine HCl (DULOXETINE ORAL) Take 40 mg by mouth once daily. albuterol (PROVENTIL) 2.5 mg /3 mL (0.083 %) nebulizer solution Use 3 mL via nebulizer every 4 hours as needed. baclofen (LIORESAL) 10 mg tablet Take 10 mg by mouth three times daily. lisinopril (ZESTRIL, PRINIVIL) 5 mg tablet Take 5 mg by mouth once daily. loratadine 10 mg cap Take 10 mg by mouth once daily. insulin aspart U-100 (NOVOLOG) 100 unit/mL Inject subcutaneously. insulin glargine (LANTUS) 100 unit/mL injection Inject 34 Units subcutaneously daily at bedtime. ipratropium-albuterol (DUONEB) 0.5 mg-3 mg(2.5 mg base)/3 mL nebu Inhale 3 mL as instructed every 6 hours as needed. potassium chloride ER (K-DUR, KLOR-CON) 20 mEq tablet Take by mouth once daily. atorvastatin (LIPITOR) 40 mg tablet Take by mouth once daily. furosemide (LASIX) 20 mg tablet Take 20 mg by mouth. metoprolol succinate ER (TOPROL XL) 50 mg 24 hr tablet Take 50 mg by mouth once daily. aspirin, enteric coated (ASPIRIN, ENTERIC COATED) 81 mg EC tablet Take 81 mg by mouth once daily. hlamskgqcsx-kncongarg-vjcwnbde (TRELEGY ELLIPTA) 200-62.5-25 mcg inhalation powder Inhale 1 Puff as instructed once daily. albuterol HFA (PROVENTIL HFA, VENTOLIN HFA) 90 mcg/actuation inhaler Inhale 2 Puffs as instructed every 4 hours as needed. Social History Tobacco Use Smoking status: Former Current packs/day: 0.00 Average packs/day: 1 pack/day for 25.0 years (25.0 ttl pk-yrs) Types: Cigarettes Start date: 02/07/1955 Quit date: 02/08/1980 Years since quittin.8 Smokeless tobacco: Never Vaping Use Vaping status: Never Used Substance Use Topics Alcohol use: Not Currently Drug use: Never PMH, Social history, family history and surgical history reviewed and updated in EMR REVIEW OF SYSTEMS: CONSTITUTIONAL: No fevers, chills, nightsweats, unintended weight loss HEENT: Denies current nasal congestion/sinus symptoms, allergy problems. CARDIOVASCULAR: No chest pain, palpitations, orthopnea, edema. PULM: See HPI. No nocturnal awakenings, no need for albuterol GI: No dysphagia/odynophagia, problematic reflux INTEGUMENTARY: No new skin changes PHYSICAL EXAMINATION: BP 133/81 Pulse 76 Resp 17 Wt 227 lb (103.0kg) SpO2 95% General Appearance: Obese female, NAD. Skin: Skin color, texture, turgor normal, no suspicious rashes or lesions. Head: Normocephalic, no masses, lesions, tenderness or abnormalities. Oropharynx: No oral lesions or thrush. Neck: Old tracheostomy scar. No stridor Lungs: Not labored, normal to percussion, no wheezes or crackles. Heart: Regular rate and rhythm, no murmurs or gallops. Extremities: No edema or clubbing. Assessment/Plan: 1. Asthma COPD overlap -Asthma with COPD overlap clinically stable -She will continue on high-dose Trelegy Ellipta with as n (more content not included)...[facility]01-17-2025 Telephone encounter Note* Telephone Encounter - Edda Frances LPN - 10/26/2024 3:46 PM EST Faxed to [facility] [place] Edda Frances LPN [facility]01-17-2025 Miscellaneous Notes* Telephone Encounter - Edda Frances LPN - 10/26/2024 3:46 PM EST Faxed to [facility] [place] Edda Frances LPN * Telephone Encounter - Cherry Sagastume APRN.DELVIS - 10/26/2024 3:30 PM EST Order placed * Telephone Encounter - Edda Frances LPN - 10/23/2024 10:11 AM EST Patient would like a POC order sent to [facility] [place]. Her POC has broken as of July and she currently isusing E cylinders and carts for portability. Order pended. DME [facility] [place] Should [facility] [place] [facility] not be able to provide, patient plans to inquire with [employer]. Edda Frances LPN documented in [facility] encounter[facility] Telephone encounter Note * Telephone Encounter - Cherry Sagastume APRN.DELVIS - 10/26/2024 3:30 PM EST Order placed [facility] Work Phone: [phone] 143-146301-14-2025 Telephone encounter Note* Telephone Encounter - Edda Frances LPN - 10/23/2024 10:11 AM EST Patient would like a POC order sent to [facility]. Her POC has broken as of July and she currently isusing E cylinders and carts for portability. Order pended. DME [facility] Should [facility] not be able to provide, patient plans to inquire with [employer]. Edda Frances LPN [facility]09-09-2024 History of Present illness Narrative* Tara Khoury MD - 06/18/2024 11:45 AM EDT Images from the original note were not included. . [facility] [place] Note Patient name: Tish Butler PCP: Mariola Magdaleno MD CC: Follow-up asthma COPD HPI: Tish Butler 74 year old female former [id number] smoker quitting in 1979 with PMH significant for obesity, SELENA on CPAP, allergies requiring immunotherapy in the past, HTN, asthma COPD overlap syndrome, chronic hypoxemic respiratory failure on oxygen since 2009, tracheal stenosis from emergent tracheostomy in 2013 (granulation tissue without significant obstruction requiring intervention). Current inhaled therapy consists of Trelegy Ellipta with as needed albuterol. Today she statesshe has been doing well from a respiratory standpoint. She has not had any recent upper respiratoryinfections nor required hospitalization for her obstructive lung disease. Her main symptom is dyspnea on exertion which has been stable. No current cough, sputum production or wheezing. Her pulmonaryfunction test today show improvement in her airflow obstruction since changing her inhaled therapy to Trelegy Ellipta. DME: [employer] 2 L DATA: SERVICE DATE: 06/18/2024 SERVICE TIME: 11:22 AM Oral Exhaled Nitric Oxide measurement: 9.0 (ppb) PFT: Pulmonary function test show possible restriction and small airways obstruction Flow-volume loop not indicative of tracheal stenosis PAST MEDICAL HISTORY No date: Allergies No date: Atrial fibrillation ([facility]) No date: B12 deficiency No date: Chronic low back pain No date: Chronic respiratory failure with hypoxia ([facility]) No date: CKD (chronic kidney disease) No date: COPD (chronic obstructive pulmonary disease) ([facility]) No date: Cor pulmonale ([facility]) No date: Depression No date: Diabetes mellitus ([facility]) No date: Fibromyalgia No date: GERD (gastroesophageal reflux disease) No date: H/O fibromyositis No date: HTN (hypertension) No date: Mixed hyperlipidemia No date: Morbid obesity ([facility]) No date: SELENA (obstructive sleep apnea) No date: Osteoarthritis of multiple joints No date: Rheumatic fever No date: RLS (restless legs syndrome) No date: Thoracic outlet syndrome No date: Tracheal stenosis following tracheostomy ([facility]) No date: Vitamin D deficiency ALLERGIES Allergen Reactions Demerol [Meperidine] Itching Grass Pollen Shortness of Breath House Dust Unknown Mold Unknown Penicillins Unknown Tree And Shrub Poll* Unknown Vicodin [Hydrocodon* Unknown esomeprazole (NEXIUM) 40 mg capsule Take 40 mg by mouth once daily. montelukast (SINGULAIR) 10 mg tablet Take 1 tablet by mouth daily at bedtime. foothfkzztq-derycrpuv-qyzufmrn (TRELEGY ELLIPTA) 200-62.5-25 mcg inhalation powder Inhale 1 Puff asinstructed once daily. azelastine 0.1% nasal spray USE 1 SPRAY(S) IN EACH NOSTRIL TWICE DAILY OXYGEN, HOME THERAPY, 2 L/min by Nasal Cannula route continuous. fluticasone (FLONASE) 50 mcg/actuation nasal spray Use 1 [place] in each nostril once daily. duloxetine HCl (DULOXETINE ORAL) Take 40 mg by mouth once daily. albuterol (PROVENTIL) 2.5 mg /3 mL (0.083 %) nebulizer solution Use 3 mL via nebulizer every 4 hours as needed. baclofen (LIORESAL) 10 mg tablet Take 10 mg by mouth three times daily. lisinopril (ZESTRIL, PRINIVIL) 5 mg tablet Take 5 mg by mouth once daily. loratadine 10 mg cap Take 10 mg by mouth once daily. insulin aspart U-100 (NOVOLOG) 100 unit/mL Inject subcutaneously. insulin glargine (LANTUS) 100 unit/mL injection Inject 34 Units subcutaneously daily at bedtime. ipratropium-albuterol (DUONEB) 0.5 mg-3 mg(2.5 mg base)/3 mL nebu Inhale 3 mL as instructed every 6hours as needed. potassium chloride ER (K-DUR, KLOR-CON) 20 mEq tablet Take by mouth once daily. atorvastatin (LIPITOR) 40 mg tablet Take by mouth once daily. furosemide (LASIX) 20 mg tablet Take 20 mg by mouth. metoprolol succinate ER (TOPROL XL) 50 mg 24 hr tablet Take 50 mg by mouth once daily. aspirin, enteric coated (ASPIRIN, ENTERIC COATED) 81 mg EC tablet Take 81 mg by mouth once daily. Social History Tobacco Use Smoking status: Former Current packs/day: 0.00 Average packs/day: 1 pack/day for 25.0 years (25.0 ttl pk-yrs) Types: Cigarettes Start date: 02/07/1955 Quit date: 02/08/1980 Years since quittin.3 Smokeless tobacco: Never Vaping Use Vaping status: Never Used Substance Use Topics Alcohol use: Not Currently Drug use: Never PMH, Social history, family history and surgical history reviewed and updated in EMR REVIEW OF SYSTEMS: CONSTITUTIONAL: No fevers, chills, nightsweats, unintended weight loss HEENT: Denies nasal congestion/sinus symptoms, problematic allergy problems. Some sneezing CARDIOVASCULAR: No chest pain, dyspnea, palpitations, edema. PULM: See HPI NEURO: No new balance problems, peripheral weakness/paresthesias or numbness of concern. Rolling walker INTEGUMENTARY: No new skin changes PHYSICAL EXAMINATION: BP 126/78 Pulse 89 Resp 14 Ht 5' 3.75 (1.62m) Wt 227 lb (103.0kg) SpO2 98% BMI 39.28 kg/(m^2). General Appearance: Obese female, NAD. Skin: Skin color, texture, turgor normal, no suspicious rashes or lesions. Head: Normocephalic, no masses, lesions, tenderness or abnormalities. Eyes: Sclera, conjunctiva normal. Oropharynx: No oral lesions or thrush. Neck: Status post tracheostomy with well-healed scar, no masses or adenopathy. Lungs: Not labored, normal to percussion, no wheezes or crackles. Heart: Regular rate and rhythm, no murmurs. Extremities: No edema or clubbing. Assessment/Plan: 1. Asthma COPD overlap -Symptoms controlled and improvement in pulmonary function testing -Will continue Trelegy Ellipta. Refilled prescription 2. Chronic hypoxemic respiratory failure -Patient is compliant with and benefits from supplemental oxygen 3. History of tracheostomy -No significant stenosis 4. Class II obesity -BMI 39 -Weight loss advised 5. Former cigarette smoker -Former smoker with asthma COPD overlap -Does not qualify for lung cancer screening based on duration of her smoking cessation Tara Khoury MD [facility] documented in this encounterUniversity [facility]als [facility]09-09-2024 NoteHNO ID: [id number] Author: TARA KHOURY MD Service: ? Author Type: Physician Type: Progress Notes Filed: 06/18/2024 12:13 Note Text: . 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 Current inhaled therapy consists of Trelegy Ellipta with as needed albuterol. Today she states she has been doing well from a respiratory standpoint. She has not had any recent upper respiratory infections nor required hospitalization for her obstructive lung disease. Her main symptom is dyspnea on exertion which has been stable. No current cough, sputum production or wheezing. Her pulmonary function test today show improvement in her airflow obstruction since changing her inhaled therapy to Trelegy Ellipta. DME: [employer] 2 L DATA: SERVICE DATE: 06/18/2024 SERVICE TIME: 11:22 AM Oral Exhaled Nitric Oxide measurement: 9.0 (ppb) PFT: Pulmonary function test show possible restriction and small airways obstruction Flow-volume loop not indicative of tracheal stenosis PAST MEDICAL HISTORY No date: Allergies No date: Atrial fibrillation ([facility]) No date: B12 deficiency No date: Chronic low back pain No date: Chronic respiratory failure with hypoxia ([facility]) No date: CKD (chronic kidney disease) No date: COPD (chronic obstructive pulmonary disease) ([facility]) No date: Cor pulmonale ([facility]) No date: Depression No date: Diabetes mellitus ([facility]) No date: Fibromyalgia No date: GERD (gastroesophageal reflux disease) No date: H/O fibromyositis No date: HTN (hypertension) No date: Mixed hyperlipidemia No date: Morbid obesity ([facility]) No date: SELENA (obstructive sleep apnea) No date: Osteoarthritis of multiple joints No date: Rheumatic fever No date: RLS (restless legs syndrome) No date: Thoracic outlet syndrome No date: Tracheal stenosis following tracheostomy ([facility]) No date: Vitamin D deficiency ALLERGIES Allergen Reactions Demerol [Meperidine] Itching Grass Pollen Shortness of Breath House Dust Unknown Mold Unknown Penicillins Unknown Tree And Shrub Poll* Unknown Vicodin [Hydrocodon* Unknown esomeprazole (NEXIUM) 40 mg capsule Take 40 mg by mouth once daily. montelukast (SINGULAIR) 10 mg tablet Take 1 tablet by mouth daily at bedtime. vfjqeqmzzmb-rrfugmecb-jwassnzg (TRELEGY ELLIPTA) 200-62.5-25 mcg inhalation powder Inhale 1 Puff as instructed once daily. azelastine 0.1% nasal spray USE 1 SPRAY(S) IN EACH NOSTRIL TWICE DAILY OXYGEN, HOME THERAPY, 2 L/min by Nasal Cannula route continuous. fluticasone (FLONASE) 50 mcg/actuation nasal spray Use 1 [place] in each nostril once daily. duloxetine HCl (DULOXETINE ORAL) Take 40 mg by mouth once daily. albuterol (PROVENTIL) 2.5 mg /3 mL (0.083 %) nebulizer solution Use 3 mL via nebulizer every 4 hours as needed. baclofen (LIORESAL) 10 mg tablet Take 10 mg by mouth three times daily. lisinopril (ZESTRIL, PRINIVIL) 5 mg tablet Take 5 mg by mouth once daily. loratadine 10 mg cap Take 10 mg by mouth once daily. insulin aspart U-100 (NOVOLOG) 100 unit/mL Inject subcutaneously. insulin glargine (LANTUS) 100 unit/mL injection Inject 34 Units subcutaneously daily at bedtime. ipratropium-albuterol (DUONEB) 0.5 mg-3 mg(2.5 mg base)/3 mL nebu Inhale 3 mL as instructed every 6 hours as needed. potassium chloride ER (K-DUR, KLOR-CON) 20 mEq tablet Take by mouth once daily. atorvastatin (LIPITOR) 40 mg tablet Take by mouth once daily. furosemide (LASIX) 20 mg tablet Take 20 mg by mouth. metoprolol succinate ER (TOPROL XL) 50 mg 24 hr tablet Take 50 mg by mouth once daily. aspirin, enteric coated (ASPIRIN, ENTERIC COATED) 81 mg EC tablet Take 81 mg by mouth once daily. Social History Tobacco Use Smoking status: Former Current packs/day: 0.00 Average packs/day: 1 pack/day for 25.0 years (25.0 ttl pk-yrs) Types: Cigarettes Start date: 02/07/1956 Quit date: 02/08/1980 Years since quittin.3 Smokeless tobacco: Never Vaping Use Vaping status: Never Used Substance Use Topics Alcohol use: Not Currently Drug use: Never PMH, Social history, family history and surgical history reviewed and updated in EMR REVIEW OF SYSTEMS: CONSTITUTIONAL: No fevers, chills, nightsweats, unintended weight loss HEENT: Denies nasal congestion/sinus symptoms, problematic allergy problems. Some sneezing CARDIOVASCULAR: No chest pain, dyspnea, palpitations, edema. PULM: See HPI NEURO: No new balance problems, peripheral weakness/paresthesias or numbness of concer (more content not included)...[facility]09-09-2024 Note HNO ID: [id number] Author: DANIEL RUBIO RPFT Service: ? Author Type: Respiratory Therapist Type: Procedures Filed: 06/18/2024 11:22 Note Text: RESPIRATORY THERAPY ORAL EXHALED NITRIC OXIDE SERVICE DATE: 06/18/2024 SERVICE TIME: 11:22 AM Oral Exhaled Nitric Oxide measurement: 9.0 (ppb) Normal: Adult <25 ppb, pediatric (<12 years) <20 ppb High Normal / Increased: Adult 25-50 ppb, pediatric (<12 years) 20-35 ppb Moderately raised exhaled Nitric Oxide may indicate underlying inflammation, but note that: Cold and influenza can raise exhaled Nitric Oxide and some patients have higher baseline exhaled Nitric Oxide levels than others. High: Adult >50 ppb, pediatric (<12 years) >35 ppb Indicative of ongoing eosinophilic inflammation. Symptomatic patient likely to respond to steroids. Possible causes (if already on steroids): Poor compliance, recent allergen exposure, steroid dose inadequate, and steroid resistance. Note that not all patients with high exhaled nitric oxide levels display symptoms. Oral Exhaled Nitric Oxide measurement (Previous Encounters) Test Date Oral Exhaled Nitric Oxide (ppb) 06/18/2024 9.0 NAME: BROWN Bentley PATIENT NAME: Tish Soloenrike DATE: June 18, 2024 TIME: 11:22 [facility]09-09-2024 Procedure note* Daniel Rubio RPFT - 06/18/2024 11:21 AM EDTAssociated Order(s): NITRIC OXIDE, EXHALED RESPIRATORY THERAPY ORAL EXHALED NITRIC OXIDE SERVICE DATE: 06/18/2024 SERVICE TIME: 11:22 AM Oral Exhaled Nitric Oxide measurement: 9.0 (ppb) Normal: Adult <25 ppb, pediatric (<12 years) <20 ppb High Normal / Increased: Adult 25-50 ppb, pediatric (<12 years) 20-35 ppb Moderately raised exhaled Nitric Oxide may indicate underlying inflammation, but note that: Cold and influenza can raise exhaled Nitric Oxide and some patients have higher baseline exhaled Nitric Oxide levels than others. High: Adult >50 ppb, pediatric (<12 years) >35 ppb Indicative of ongoing eosinophilic inflammation. Symptomatic patient likely to respond to steroids. Possible causes (if already on steroids): Poor compliance, recent allergen exposure, steroid dose inadequate, and steroid resistance. Note that not all patients with high exhaled nitric oxide levels display symptoms. Oral Exhaled Nitric Oxide measurement (Previous Encounters) Test Date Oral Exhaled Nitric Oxide (ppb) 06/18/2024 9.0 NAME: BROWN Bentley PATIENT NAME: Tish Butler DATE: June 18, 2024 TIME: 11:22 AM [facility]09-09-2024 Nurse Note* Edda Frances LPN - 06/18/2024 11:21 AM EDT Intake information documented in the prior visit with BROWN Bentley today. [facility]09-09-2024 Nurse Note* Edda Frances LPN - 06/18/2024 11:21 AM EDT Intake information documented in the prior visit with BROWN Bentley today. documented in this encounterUniversity Hospitals [facility]09-09-2024 Procedure note* Daniel Rubio RPFT - 06/18/2024 11:21 AM EDTAssociated Order(s): NITRIC OXIDE, EXHALED RESPIRATORY THERAPY ORAL EXHALED NITRIC OXIDE SERVICE DATE: 06/18/2024 SERVICE TIME: 11:22 AM Oral Exhaled Nitric Oxide measurement: 9.0 (ppb) Normal: Adult <25 ppb, pediatric (<12 years) <20 ppb High Normal / Increased: Adult 25-50 ppb, pediatric (<12 years) 20-35 ppb Moderately raised exhaled Nitric Oxide may indicate underlying inflammation, but note that: Cold and influenza can raise exhaled Nitric Oxide and some patients have higher baseline exhaled Nitric Oxide levels than others. High: Adult >50 ppb, pediatric (<12 years) >35 ppb Indicative of ongoing eosinophilic inflammation. Symptomatic patient likely to respond to steroids. Possible causes (if already on steroids): Poor compliance, recent allergen exposure, steroid dose inadequate, and steroid resistance. Note that not all patients with high exhaled nitric oxide levels display symptoms. Oral Exhaled Nitric Oxide measurement (Previous Encounters) Test Date Oral Exhaled Nitric Oxide (ppb) 06/18/2024 9.0 NAME: BROWN Bentley PATIENT NAME: Tish Butler DATE: June 18, 2024 TIME: 11:22 AM documented in this encounterUniversity Hospitals [facility]09-09-2024 NoteHNO ID: [id number] Author: DANIEL RUBIO RPFT Service: ? Author Type: Respiratory Therapist Type: Progress Notes Filed: 06/18/2024 11:22 Note Text: PULM FUNCTION: Provider: Tara Khoury MD Assisting Tech: Daniel Rubio RPFT Spirometry: 1 [facility] of Present illness Narrative* Daniel Rubio RPFT - 06/18/2024 11:10 AM EDT PULM FUNCTION: Provider: Tara Khoury MD Assisting Tech: Daniel Rubio RPFT Spirometry: 1 Exhaled Nitric Oxide: 1 documented in this encounterUniversity Hospitals [facility]03-01-2024 History of Present illness Narrative* Tara Khoury MD - 12/09/2023 10:30 AM EST . Res[facility] [place] Note Patient name: Tish Butler PCP: Mariola Magdaleno MD CC: follow-up HPI: Tish Butler 73 year old female former 25 pack year smoker, quitting in 1979 with PMH significant for obesity, SELENA on CPAP, allergies s/p IT, HTN, asthma COPD overlap, chronic hypoxemic respiratory failure, tracheal stenosis following emergent tracheostomy in 2013. Current therapy with Trelegy Ellipta and as needed albuterol. From a respiratory standpoint she states she has been doing well. Her main symptom is dyspnea on exertion. She denies wheezing or chest pain. She does have intermittent cough mainly in the morning seems to be associated with postnasal drip. She has had no need for her albuterol inhaler. She has not been ill with any upper respiratory infections nor required ho spitalization. She is compliant with and benefits from use of her supplemental oxygen. DME: [employer] 2L DATA: COPD Assessment Test I never cough 0 1 2 3 4 5 I cough all the time; Score 2 I have no phlegm 0 1 2 3 4 5 My chest is completely full of phlegm; Score 2 My chest does not feel tight at all 0 1 2 3 4 5 My chest chest feels very tight; Score 1 When I walk up a hill or one flight of stairs I am not breathless 0 1 2 3 4 5 When I walk up a hillor one flight or stairs I am very breathless; Score 2 I am not limited doing any activities at home 0 1 2 3 4 5 I am very limited doing activities at home; Score 3 I am confident leaving my home despite my lung condition 0 1 2 3 4 5 I am not at all confident leaving my home because of my lung condition; Score 1 I sleep soundly 0 1 2 3 4 5 don't sleep soundly because of my lungs; Score 2 I have lots of energy 0 1 2 3 4 5 I have no energy at all; Score 2 Total Score: 15 Imaging / Diagnostic Studies: DATE OF EXAM: May 24 2023 2:17PM [facility] - CT CHEST WO IVCON / PROCEDURE REASON: Pneumonia of both lungs due to infectious organism, unspecified part of lung EXAMINATION: CHEST CT WITHOUT CONTRAST CLINICAL HISTORY: Pneumonia of both lungs due to infectious organism. Follow-up Comparison: CT 03/24/2023 RESULT: Limitations: None. Lines, tubes, and devices: None. Lung parenchyma and airways: Interval clearing of areas of right lung consolidation. Left lung baseatelectasis/scar with stable left hemidiaphragm elevation. No acute consolidation. Numerous scattered 2 to 3 mm nodules bilaterally, not appreciably changed. No concerning pulmonary mass. Central airw ays are patent. Pleural space: No pleural effusion. No pleural thickening. Lower neck, lymph nodes, and mediastinum: The imaged thyroid gland is normal. No lymphadenopathy inthe supraclavicular, axillary, mediastinal, or hilar regions. Heart, pericardium, and thoracic vessels: The thoracic aorta and main pulmonary artery are normal in caliber. The cardiac chambers are normal in size. Coronary artery atherosclerotic calcifications are noted, although the study is not optimized for coronary assessment. No pericardial effusion or thickening. Bones and soft tissues: No destructive bone lesion. Advanced degenerative disc disease in the upperlumbar spine. Chest wall is unremarkable. Upper abdomen: No acute abnormality in the imaged upper abdomen. IMPRESSION: Interval resolution of right lung infiltrates. No CT evidence of acute abnormality. I personally reviewed the images and agree with the above assessment PAST MEDICAL HISTORY Diagnosis Date Allergies Atrial fibrillation (HCC) B12 deficiency Chronic low back pain Chronic respiratory failure with hypoxia ([facility]) CKD (chronic kidney disease) COPD (chronic obstructive pulmonary disease) ([facility]) Cor pulmonale (HCC) Depression Diabetes mellitus (HCC) Fibromyalgia GERD (gastroesophageal reflux disease) H/O fibromyositis HTN (hypertension) Mixed hyperlipidemia Morbid obesity ([facility]) SELENA (obstructive sleep apnea) Osteoarthritis of multiple joints Rheumatic fever RLS (restless legs syndrome) Thoracic outlet syndrome Tracheal stenosis following tracheostomy ([facility]) Vitamin D deficiency ALLERGIES Allergen Reactions Demerol [Meperidine] Itching Grass Pollen Shortness of Breath House Dust Unknown Mold Unknown Penicillins Unknown Tree And Shrub Poll* Unknown Vicodin [Hydrocodon* Unknown traMADol (ULTRAM) 50 mg tablet azelastine 0.1% nasal spray USE 1 SPRAY(S) IN EACH NOSTRIL TWICE DAILY montelukast (SINGULAIR) 10 mg tablet TAKE 1 TABLET BY MOUTH DAILY AT BEDTIME OXYGEN, HOME THERAPY, 2 L/min by Nasal Cannula route continuous. fluticasone (FLONASE) 50 mcg/actuation nasal spray Use 1 [place] in each nostril once daily. duloxetine HCl (DULOXETINE ORAL) Take 40 mg by mouth once daily. esomeprazole (NEXIUM) 20 mg capsule Take 20 mg by mouth DAILY (6 AM). albuterol (PROVENTIL) 2.5 mg /3 mL (0.083 %) nebulizer solution Use 3 mL via nebulizer every 4 hours as needed. baclofen (LIORESAL) 10 mg tablet Take 10 mg by mouth three times daily. lisinopril (ZESTRIL, PRINIVIL) 5 mg tablet Take 5 mg by mouth once daily. loratadine 10 mg cap Take 10 mg by mouth once daily. rOPINIRole (REQUIP) 0.5 mg tablet Take 0.5 mg by mouth twice daily. insulin aspart U-100 (NOVOLOG) 100 unit/mL Inject subcutaneously. insulin glargine (LANTUS) 100 unit/mL injection Inject 34 Units subcutaneously daily at bedtime. ipratropium-albuterol (DUONEB) 0.5 mg-3 mg(2.5 mg base)/3 mL nebu Inhale 3 mL as instructed every 6hours as needed. potassium chloride ER (K-DUR, KLOR-CON) 20 mEq tablet Take by mouth once daily. atorvastatin (LIPITOR) 40 mg tablet Take by mouth once daily. furosemide (LASIX) 20 mg tablet Take 20 mg by mouth. metoprolol succinate ER (TOPROL XL) 50 mg 24 hr tablet Take 50 mg by mouth once daily. aspirin, enteric coated (ASPIRIN, ENTERIC COATED) 81 mg EC tablet Take 81 mg by mouth once daily. hziqkwcjrbo-smmsmtxsr-rmopjwzk (TRELEGY ELLIPTA) 200-62.5-25 mcg inhalation powder Inhale 1 Puff asinstructed once daily. predniSONE (DELTASONE) 10 mg tablet cyanocobalamin (VITAMIN B-12) 1,000 mcg tab Take by mouth. ergocalciferol 50,000 unit capsule (VITAMIN D2, DRISDOL) Take by mouth. (Patient not taking: Reported on 09/19/2023) pantoprazole DR (PROTONIX) 20 mg tablet Take 20 mg by mouth once daily. acetaminophen (TYLENOL) 500 mg tablet Take by mouth. primidone (MYSOLINE) 50 mg tablet Social History Tobacco Use Smoking status: Former Packs/day: 1.00 Years: 25.00 Additional pack years: 0.00 Total pack years: 25.00 Types: Cigarettes Quit date: 02/08/1980 Years since quittin.8 Smokeless tobacco: Never Vaping Use Vaping Use: Never used Substance Use Topics Alcohol use: Not Currently Drug use: Never FAMILY HISTORY Problem Relation Age of Onset Emphysema Mother Colon Cancer Mother Emphysema Father Heart Attack Father Alcohol abuse Father Breast Cancer Sister COPD Brother PAST SURGICAL HISTORY Procedure Laterality Date D&C, DIAG AND/OR THERAPEUTIC HERNIA REPAIR HX umbilical hernia HYSTERECTOMY HX REMV CATARACT EXTRACAP,INSERT LENS Bilateral 10/10/2022September one eye, October other eye. Pt unsure of which was first. SURGERY ADD 1998 left thumb surgery TONSILLECTOMY & ADENOIDECTOMY <AGE 11 TOTAL KNEE REPLACEMENT Bilateral TRACHEOSTOMY HX PMH, Social history, family history and surgical history reviewed and updated in EMR REVIEW OF SYSTEMS: CONSTITUTIONAL: No fevers, chills, nightsweats, unintended weight loss HEENT: Positive nasal congestion/sinus symptoms with rhinorrhea. No nosebleeds CARDIOVASCULAR: No chest pain, palpitations, orthopnea, PND, edema. PULM: See HPI GI: No dysphagia/odynophagia, problematic reflux NEURO: No new balance problems, peripheral weakness/paresthesias or numbness of concern. INTEGUMENTARY: No new skin changes or rashes PHYSICAL EXAMINATION: BP 122/82 Pulse 74 Resp 20 Wt 232 lb (105.2kg) SpO2 95[2 L]% General Appearance: Obese female, NAD. Skin: Skin color, turgor normal, no suspicious rashes or lesions. Dry skin Head: Normocephalic, no masses, lesions, tenderness or abnormalities. Eyes: Sclera, conjunctiva normal, mild arcus senilis. Oropharynx: Adequate dentition, no oral lesions or thrush. Neck: No JVD, no masses, no adenopathy. Lungs: Not labored, normal to percussion, no wheezes or crackles. Heart: Regular rate and rhythm, no murmurs or gallops. Extremities: No edema or clubbing. Assessment/Plan: 1. Asthma COPD overlap syndrome -She will continue with Trelegy Ellipta and as needed albuterol -Sent in prescription to her new mail order service -PFT and exhaled nitric oxide level at next visit 2. Chronic hypoxemic respiratory failure -Patient is compliant with and benefits from supplemental oxygen 3. Obesity, class II -BMI 38 -Weight loss advised as obesity pretends poor control of asthma 4. Former cigarette smoker -Former [id number] smoker having quit in 1979 -Continued abstinence -Does not qualify for lung cancer screening based on duration of smoking cessation Tara Khoury MD [facility] [place] documented in this encounterUniversity Hospitals [facility]12-14-2023 Miscellaneous Notes* Telephone Encounter - Rachel Brambila MSW - 09/22/2023 12:13 PM EST Sw left message for patient with SW direct number. Sw received message that patient most likely looking for inhaler assistance after the 10/10/23. Danielle noted in message that patient can call Sw at any time to review program guidelines for [employer]-Trelegy inhaler. * Telephone Encounter - Rachel Brambila MSW - 09/19/2023 3:38 PM EST Sw left message for patient regarding trelegy inhaler and [employer] PAP. Danielle notes that she will reach outto patient again on Tuesday, 09/21 to discuss program guidelines. documented in this encounterUniversity Hospitals [facility]12-11-2023 History of Present illness Narrative* Amy Yu PA-C - 09/19/2023 1:00 PM EST Images from the original note were not included. Patient: Tish Butler PCP: Mariola Magdaleno MD CC: follow up HPI: Tish Butler 73 year old female former [id number] smoker having quit 1979 with PMH significant for morbid obesity, SELENA on CPAP, DM, CKD, asthma COPD overlap, allergies requiring immunotherapy in the past, HTN, chronic hypoxemic respiratory failure, history of tracheal stenosis. Past medical history is notable for emergent tracheostomy in 2013 for respiratory failure. She had tracheal stenosis, evaluated by thoracic surgery showing granulation tissue but no appreciable stenosis. Current maintenance therapy with Advair. Trialed a month of Trelegy and she noticed improvement in symptoms, however, it was expensive and she has 2 Advair inhalers at home. Daily cough productive of yello w phlegm. No hemoptysis. No wheezing. Exertional dyspnea with minimal effort. Currently wearing 2 Lsupplemental oxygen continuously. DME: [employer]. PAST MEDICAL HISTORY Diagnosis Date Allergies Atrial fibrillation (HCC) B12 deficiency Chronic low back pain Chronic respiratory failure with hypoxia (HCC) CKD (chronic kidney disease) COPD (chronic obstructive pulmonary disease) (HCC) Cor pulmonale (HCC) Depression Diabetes mellitus (HCC) Fibromyalgia GERD (gastroesophageal reflux disease) H/O fibromyositis HTN (hypertension) Mixed hyperlipidemia Morbid obesity (HCC) SELENA (obstructive sleep apnea) Osteoarthritis of multiple joints Rheumatic fever RLS (restless legs syndrome) Thoracic outlet syndrome Tracheal stenosis following tracheostomy (HCC) Vitamin D deficiency Allergies: Demerol [Meperidine] Itching Grass Pollen Shortness of Breath House Dust Unknown Mold Unknown Penicillins Unknown Tree And Shrub Poll* Unknown Vicodin [Hydrocodon* Unknown montelukast (SINGULAIR) 10 mg tablet TAKE 1 TABLET BY MOUTH DAILY AT BEDTIME OXYGEN, HOME THERAPY, 2 L/min by Nasal Cannula route continuous. predniSONE (DELTASONE) 10 mg tablet fluticasone (FLONASE) 50 mcg/actuation nasal spray Use 1 [place] in each nostril once daily. azelastine 0.1% nasal spray USE 1 SPRAY(S) IN EACH NOSTRIL TWICE DAILY rzwvmowuhkf-thsprxhys-dmoedyom (TRELEGY ELLIPTA) 200-62.5-25 mcg inhalation powder Inhale 1 Puff asinstructed once daily. (Patient not taking: Reported on 04/01/2023) duloxetine HCl (DULOXETINE ORAL) Take 40 mg by mouth once daily. esomeprazole (NEXIUM) 20 mg capsule Take 20 mg by mouth DAILY (6 AM). albuterol (PROVENTIL) 2.5 mg /3 mL (0.083 %) nebulizer solution Use 3 mL via nebulizer every 4 hours as needed. baclofen (LIORESAL) 10 mg tablet Take 10 mg by mouth three times daily. cyanocobalamin (VITAMIN B-12) 1,000 mcg tab Take by mouth. ergocalciferol 50,000 unit capsule (VITAMIN D2, DRISDOL) Take by mouth. lisinopril (ZESTRIL, PRINIVIL) 5 mg tablet Take 5 mg by mouth once daily. loratadine 10 mg cap Take 10 mg by mouth once daily. pantoprazole DR (PROTONIX) 20 mg tablet Take 20 mg by mouth once daily. rOPINIRole (REQUIP) 0.5 mg tablet Take 0.5 mg by mouth twice daily. acetaminophen (TYLENOL) 500 mg tablet Take by mouth. insulin aspart U-100 (NOVOLOG) 100 unit/mL Inject subcutaneously. insulin glargine (LANTUS) 100 unit/mL injection Insulin Glargine Active 50 UNIT SC EVERY EVENING April 02, 2022 11:01am ipratropium-albuterol (DUONEB) 0.5 mg-3 mg(2.5 mg base)/3 mL nebu Inhale 3 mL as instructed every 6hours as needed. potassium chloride ER (K-DUR, KLOR-CON) 20 mEq tablet Take by mouth once daily. atorvastatin (LIPITOR) 40 mg tablet Take by mouth once daily. furosemide (LASIX) 20 mg tablet Take 20 mg by mouth. metoprolol succinate ER (TOPROL XL) 50 mg 24 hr tablet Take 50 mg by mouth once daily. primidone (MYSOLINE) 50 mg tablet aspirin, enteric coated (ASPIRIN, ENTERIC COATED) 81 mg EC tablet Take 81 mg by mouth once daily. Social History Tobacco Use Smoking status: Former Packs/day: 1.00 Years: 25.00 Additional pack years: 0.00 Total pack years: 25.00 Types: Cigarettes Quit date: 02/08/1980 Years since quittin.6 Smokeless tobacco: Never Vaping Use Vaping Use: Never used Substance Use Topics Alcohol use: Not Currently Drug use: Never Family History Problem Relation Age of Onset Emphysema Mother Colon Cancer Mother Emphysema Father Heart Attack Father Alcohol abuse Father Breast Cancer Sister COPD Brother PAST SURGICAL HISTORY Procedure Laterality Date D&C, DIAG AND/OR THERAPEUTIC HERNIA REPAIR HX umbilical hernia HYSTERECTOMY HX REMV CATARACT EXTRACAP,INSERT LENS Bilateral 10/10/2022September one eye, October other eye. Pt unsure of which was first. SURGERY ADD 1998 left thumb surgery TONSILLECTOMY & ADENOIDECTOMY <AGE 11 TOTAL KNEE REPLACEMENT Bilateral TRACHEOSTOMY HX I reviewed the past medical history, family history, social history and surgical history with changes noted above and updated in EMR. IMMUNIZATIONS Prevnar - 03/18/2023 Pneumovax - 10/10/2014 Influenza - 06/2023 COVID-19 - most recent 08/2022 ROS: General: No fevers, chills or night sweats. No unintended weight loss. Eyes, Ears, nose, throat: Post nasal drip, rhinorrhea. Immunotherapy per [facility]. No headaches.No epistaxis. Cardiac: No angina, orthopnea, edema, or chest pain. Resp: See HPI. GI: No heartburn, dysphagia. Musculoskeletal: Chronic back pain. Neuro: No headache, focal weakness, tremor. Skin: No new skin changes or rash. Otherwise negative. PHYSICAL EXAMINATION: BP (P) 118/74 Pulse (P) 76 Resp (P) 17 Wt (P) 103.9 kg (229 lb) SpO2 (P) 99% BMI (P) 38.11 kg/m O2: 2L NC Gen: No acute distress. Cooperative with examination. HEENT: Normocephalic. Sclera, conjunctiva clear. Oral hygeine and dentition good. No thrush. Resp: No stridor, accessory respiratory muscle use, supra-sternal or intercostal retractions. No wheezes, crackles. CV: Regular rythm. Heart tones normal. Radial pulses normal. MSK: No kyphoscoliosis. Ext: Warm and well perfused. No clubbing, cyanosis, edema. Skin: No rash, ecchymoses. Neuro: Mental status normal. Affect normal. No tremor. DATA: PFT, 05/14/2022 IMPRESSION: Spirometry shows no obstruction.The reduced FVC suggests restriction. Recommend lung volumes if clinically indicated. The increase in FEF 25-75 post-bronchodilator reflects an improvement in the small airway obstruction. Electronically Signed On 05-14-2022 17:35:10 EDT by Tara Khoury M.D. CT chest, 05/24/2023 IMPRESSION: Interval resolution of right lung infiltrates. No CT evidence of acute abnormality. Comparison: CT 03/24/2023 RESULT: Limitations: None. Lines, tubes, and devices: None. Lung parenchyma and airways: Interval clearing of areas of right lung consolidation. Left lung base atelectasis/scar with stable left hemidiaphragm elevation. No acute consolidation. Numerous scattered 2 to 3 mm nodules bilaterally, not appreciably changed. No concerning pulmonary mass. Central airways are patent. Pleural space: No pleural effusion. No pleural thickening. Lower neck, lymph nodes, and mediastinum: The imaged thyroid gland is normal. No lymphadenopathy in the supraclavicular, axillary, mediastinal, or hilar regions. Heart, pericardium, and thoracic vessels: The thoracic aorta and main pulmonary artery are normal in caliber. The cardiac chambers are normal in size. Coronary artery atherosclerotic calcifications are noted, although the study is not optimized for coronary assessment. No pericardial effusion or thickening. Bones and soft tissues: No destructive bone lesion. Advanced degenerative disc disease in the upper lumbar spine. Chest wall is unremarkable. Upper abdomen: No acute abnormality in the imaged upper abdomen. ASSESSMENT/PLAN: 1. Asthma-COPD overlap syndrome - ICD9: 493.20, ICD10: J44.89 (primary diagnosis) Symptomatically did well on Trelegy, however, she would like to complete the Advair she has at home. Will contact for prescription assistance. Albuterol HFA inhaler, 2 inhalations 10-15 minutes prior to activities associated with shortness ofbreath, and as needed for rescue relief of shortness of breath or wheezing, up to 4 times daily. Continue Singulair. - FLUTICASONE FUR. 200 MCG-UMECLID 62.5 MCG-VILANT 25 MCG INHALAT.POWDER 2. Morbid obesity (HCC) - ICD9: 278.01, ICD10: E66.01 Weight loss advised. 3. Former cigarette smoker - ICD9: V15.82, ICD10: Z87.891 Former [id number] smoker with mild COPD Patient does not qualify for low-dose chest CT for cancer screening based on the duration of her smoking cessation 4. History of tracheostomy - ICD9: V44.0, ICD10: Z98.890 5. Seasonal allergies - ICD9: 477.9, ICD10: J30.2 Continue Singulair, Flonase and Astelin nasal spray. Immunotherapy per [facility]. - AZELASTINE 137 MCG (0.1 %) NASAL SPRAY AEROSOL 6. Chronic hypoxemic respiratory failure (HCC) - ICD9: 518.83, 799.02, ICD10: J96.11 Patient is compliant and benefits from supplemental oxygen. Portions of this documentation were copied and pasted from previous office visit notes in order to provide a cohesive continuity of the history. The note has been reviewed and edited and updated as necessary. Amy Yu PA-C documented in this encounterUniversity Hospitals [facility]08-23-2023 History of Present illness Narrative* Amy Yu PA-C - 06/01/2023 3:00 PM EDT Images from the original note were not included. Patient: Tish Butler PCP: Mariola Magdaleno MD CC: follow up HPI: Tish Butler 73 year old female former [id number] smoker having quit 1979 with PMH significant for morbid obesity, SELENA on CPAP, DM, CKD, asthma COPD overlap, allergies requiring immunotherapy in the past, HTN, chronic hypoxemic respiratory failure, history of tracheal stenosis. Past medical history is notable for emergent tracheostomy in 2013 for respiratory failure. She had tracheal stenosis, evaluated by thoracic surgery showing granulation tissue but no appreciable stenosis. At her initial visit, pulmonary function test showed mild restriction and small airways obstruction, chest imaging showed elevation of left hemidiaphragm with associated atelectasis. Patient recently admitted to [facility] in March for pneumonia. Treated with Levaquin and Prednisone taper. CT chest demonstrates resolution. Today, patient reports she trialed a month of Trelegy and symptoms were improved and did not require nebulizer while on triple therapy. However, she would like to finish the Advair she has on hand prior to switching to Trelegy. Daily cough productive of yellow/white sputum. No hemoptysis. No wheezing. Exertional dyspnea with walking from parking lot to office. Does not navigate stairs. No lower extremity edema. No fevers, chills or night sweats. No unintended weight loss. Currently wearing 2L supplemental oxygen continuously. DME: [employer]. PAST MEDICAL HISTORY Diagnosis Date Allergies Atrial fibrillation (HCC) B12 deficiency Chronic low back pain Chronic respiratory failure with hypoxia (HCC) CKD (chronic kidney disease) COPD (chronic obstructive pulmonary disease) (HCC) Cor pulmonale (HCC) Depression Diabetes mellitus (HCC) Fibromyalgia GERD (gastroesophageal reflux disease) H/O fibromyositis HTN (hypertension) Mixed hyperlipidemia Morbid obesity (HCC) SELENA (obstructive sleep apnea) Osteoarthritis of multiple joints Rheumatic fever RLS (restless legs syndrome) Thoracic outlet syndrome Tracheal stenosis following tracheostomy (HCC) Vitamin D deficiency Allergies: Demerol [Meperidine] Itching Grass Pollen Shortness of Breath House Dust Unknown Mold Unknown Penicillins Unknown Tree And Shrub Poll* Unknown Vicodin [Hydrocodon* Unknown predniSONE (DELTASONE) 10 mg tablet fluticasone (FLONASE) 50 mcg/actuation nasal spray Use 1 [place] in each nostril once daily. montelukast (SINGULAIR) 10 mg tablet Take 1 tablet by mouth daily at bedtime. azelastine 0.1% nasal spray USE 1 SPRAY(S) IN EACH NOSTRIL TWICE DAILY buvkhyealsb-wsgtlbltr-bpvdvgeu (TRELEGY ELLIPTA) 200-62.5-25 mcg inhalation powder Inhale 1 Puff asinstructed once daily. (Patient not taking: Reported on 04/01/2023) duloxetine HCl (DULOXETINE ORAL) Take 40 mg by mouth once daily. esomeprazole (NEXIUM) 20 mg capsule Take 20 mg by mouth DAILY (6 AM). albuterol (PROVENTIL) 2.5 mg /3 mL (0.083 %) nebulizer solution Use 3 mL via nebulizer every 4 hours as needed. baclofen (LIORESAL) 10 mg tablet Take by mouth. cyanocobalamin (VITAMIN B-12) 1,000 mcg tab Take by mouth. ergocalciferol 50,000 unit capsule (VITAMIN D2, DRISDOL) Take by mouth. lisinopril (ZESTRIL, PRINIVIL) 5 mg tablet Take by mouth. loratadine 10 mg cap Take [address] mouth[address]op[address] (PROTONIX) 20 mg tablet Take by mouth. rOPINIRole (REQUIP) 0.5 mg tablet Take by mouth. acetaminophen (TYLENOL) 500 mg tablet Take by mouth. insulin aspart U-100 (NOVOLOG) 100 unit/mL Inject subcutaneously. insulin glargine (LANTUS) 100 unit/mL injection Insulin Glargine Active 50 UNIT SC EVERY EVENING April 02, 2022 11:01am ipratropium-albuterol (DUONEB) 0.5 mg-3 mg(2.5 mg base)/3 mL nebu Inhale 3 mL as instructed every 6hours as needed. potassium chloride ER (K-DUR, KLOR-CON) 20 mEq tablet Take by mouth. atorvastatin (LIPITOR) 40 mg tablet Take by mouth. furosemide (LASIX) 20 mg tablet Take 20 mg by mouth. metoprolol succinate ER (TOPROL XL) 50 mg 24 hr tablet Take by mouth. primidone (MYSOLINE) 50 mg tablet aspirin, enteric coated (ASPIRIN, ENTERIC COATED) 81 mg EC tablet Take 81 mg by mouth once daily. Social History Tobacco Use Smoking status: Former Packs/day: 1.00 Years: 25.00 Additional pack years: 0.00 Total pack years: 25.00 Types: Cigarettes Quit date: 02/08/1980 Years since quittin.3 Smokeless tobacco: Never Vaping Use Vaping Use: Never used Substance Use Topics Alcohol use: Never Drug use: Never Family History Problem Relation Age of Onset Emphysema Mother Colon Cancer Mother Emphysema Father Heart Attack Father Alcohol abuse Father Breast Cancer Sister COPD Brother PAST SURGICAL HISTORY Procedure Laterality Date D&C, DIAG AND/OR THERAPEUTIC HERNIA REPAIR HX umbilical hernia HYSTERECTOMY HX REMV CATARACT EXTRACAP,INSERT LENS Bilateral 10/10/2022September one eye, October other eye. Pt unsure of which was first. SURGERY ADD 1998 left thumb surgery TONSILLECTOMY & ADENOIDECTOMY <AGE 11 TOTAL KNEE REPLACEMENT Bilateral TRACHEOSTOMY HX I reviewed the past medical history, family history, social history and surgical history with changes noted above and updated in EMR. IMMUNIZATIONS Prevnar - 03/18/2023 Pneumovax - 10/10/2014 Influenza - 08/10/2022 COVID-19 - 12/15/2020, 08/10/2022 ROS: General: No fevers, chills or night sweats. No unintended weight loss. Appetite good. Eyes, Ears, nose, throat: Post nasal drip, rhinorrhea. Immunotherapy per [facility]. Cardiac: No angina, orthopnea. Resp: See HPI. GI: No heartburn, dysphagia. Musculoskeletal: Chronic back pain. Neuro: No headache, focal weakness, tremor. Skin: No rash. Otherwise negative. PHYSICAL EXAMINATION: BP 122/84 (BP Site: Right Arm, BP Position: Sitting, BP Cuff Size: Large Adult) Pulse 80 Resp 16 Ht 165.1 cm (5' 5) Wt 103.3 kg (227 lb 12.8 oz) SpO2 95% BMI 37.91 kg/m O2: 2L NC Gen: No acute distress. Cooperative with examination. HEENT: Normocephalic. Sclera, conjunctiva clear. Oral hygeine and dentition good. No thrush. Resp: No stridor, accessory respiratory muscle use, supra-sternal or intercostal retractions. No wheezes, crackles. CV: Regular rythm. Heart tones normal. Radial pulses normal. Abd: Non distended. MSK: No kyphoscoliosis. Ext: Warm and well perfused. No clubbing, cyanosis, edema. Skin: No rash, ecchymoses. Neuro: Mental status normal. Affect normal. No tremor. DATA: PFT, 05/14/2022 IMPRESSION: Spirometry shows no obstruction.The reduced FVC suggests restriction. Recommend lung volumes if clinically indicated. The increase in FEF 25-75 post-bronchodilator reflects an improvement in the small airway obstruction. Electronically Signed On 05-14-2022 17:35:10 EDT by Tara Khoury M.D. CT chest, 05/24/2023 IMPRESSION: Interval resolution of right lung infiltrates. No CT evidence of acute abnormality. Comparison: CT 03/24/2023 RESULT: Limitations: None. Lines, tubes, and devices: None. Lung parenchyma and airways: Interval clearing of areas of right lung consolidation. Left lung base atelectasis/scar with stable left hemidiaphragm elevation. No acute consolidation. Numerous scattered 2 to 3 mm nodules bilaterally, not appreciably changed. No concerning pulmonary mass. Central airways are patent. Pleural space: No pleural effusion. No pleural thickening. Lower neck, lymph nodes, and mediastinum: The imaged thyroid gland is normal. No lymphadenopathy in the supraclavicular, axillary, mediastinal, or hilar regions. Heart, pericardium, and thoracic vessels: The thoracic aorta and main pulmonary artery are normal in caliber. The cardiac chambers are normal in size. Coronary artery atherosclerotic calcifications are noted, although the study is not optimized for coronary assessment. No pericardial effusion or thickening. Bones and soft tissues: No destructive bone lesion. Advanced degenerative disc disease in the upper lumbar spine. Chest wall is unremarkable. Upper abdomen: No acute abnormality in the imaged upper abdomen. CXR, 03/24/2023 [facility] CTA chest, 03/24/2023 [facility] ASSESSMENT/PLAN: 1. Pneumonia of both lungs due to infectious organism, unspecified part of lung - ICD9: 483.8, ICD10: J18.9 (primary diagnosis) Symptomatically doing well and resolution on imaging. 2. Asthma-COPD overlap syndrome (HCC) - ICD9: 493.20, ICD10: J44.9 Complete Advair on hand and then switch to triple therapy Trelegy. Albuterol HFA inhaler, 2 inhalations 10-15 minutes prior to activities associated with shortness ofbreath, and as needed for rescue relief of shortness of breath or wheezing, up to 4 times daily. Continue Singulair. 3. Morbid obesity (HCC) - ICD9: 278.01, ICD10: E66.01 Weight loss advised. 4. Former cigarette smoker Former [id number]-hsuj smoker with mild COPD Patient does not qualify for low-dose chest CT for cancer screening based on the duration of her smoking cessation 5. History of tracheostomy - ICD9: V44.0, ICD10: Z98.890 6. Chronic hypoxemic respiratory failure (HCC) - ICD9: 518.83, 799.02, ICD10: J96.11 Continue 2L supplemental oxygen. Patient is compliant and benefits from supplemental oxygen. Portions of this documentation were copied and pasted from previous office visit notes in order to provide a cohesive continuity of the history. The note has been reviewed and edited and updated as necessary. Amy Yu PA-C documented in this encounterUniversity Hospitals [facility]ly[facility]06-23-2023 History of Present illness Narrative* Amy Yu PA-C - 04/01/2023 1:30 PM EDT Images from the original note were not included. Patient: Tish Butler PCP: Mariola Magdaleno MD CC: ED follow-up HPI: Tish Butler 72 year old female former [id number] smoker having quit 1979 with PMH significant for morbid obesity, SELENA on CPAP, DM, CKD, asthma COPD overlap, allergies requiring immunotherapy in the past, HTN, chronic hypoxemic respiratory failure, history of tracheal stenosis. Past medical history is notable for emergent tracheostomy in 2013 for respiratory failure. She had tracheal stenosis, evaluated by thoracic surgery showing granulation tissue but no appreciable stenosis. At her initial visit, pulmonary function test showed mild restriction and small airways obstruction, chest imaging showed elevation of left hemidiaphragm with associated atelectasis. At last office visit 03/18, I switched her inhaled therapy to Trelegy from Advair with as needed albuterol and nightly Singulair. She presented to [place] ED on 03/24 secondary to SOB and increased cough. CXR demonstratedincreased markings at the left lung base with blunting of the left costophrenic angle. Chest CTA obtained secondary to elevated D dimer and showed findings that could be consistent with a focal inflammatory disease in the superior segment of the right lower lobe and right upper lobe. Subsegmental atelectasis in the left lower lobe. No evidence of pulmonary embolism. Patient treated with Levaquin and Prednisone taper and discharged home. Today, patient states she is feeling better. She is still on Prednisone and has completed the Levaquin. She has not switched to the Trelegy because she has multiple Advair inhalers on hand. Daily cough productive of white, milky foam. Previously dark yellow/green prior to antibiotics. No hemoptysis. No wheezing. No dyspnea at rest. Exertional dyspnea with climbing stairs or carrying groceries/laundry. States SOB has improved since being in the hospital. No lower extremity edema. Recently seen by [facility] for allergy testing. They would like to starther on immunotherapy, however, she states it did not really make a difference previously. Currentlywearing 2L supplemental continuously. Wearing CPAP with all sleep. DME: [employer]. PAST MEDICAL HISTORY Diagnosis Date Allergies Atrial fibrillation (HCC) B12 deficiency Chronic low back pain Chronic respiratory failure with hypoxia (HCC) CKD (chronic kidney disease) COPD (chronic obstructive pulmonary disease) (HCC) Cor pulmonale (HCC) Depression Diabetes mellitus (HCC) Fibromyalgia GERD (gastroesophageal reflux disease) H/O fibromyositis HTN (hypertension) Mixed hyperlipidemia Morbid obesity (HCC) SELENA (obstructive sleep apnea) Osteoarthritis of multiple joints Rheumatic fever RLS (restless legs syndrome) Thoracic outlet syndrome Tracheal stenosis following tracheostomy (HCC) Vitamin D deficiency Allergies: Demerol [Meperidine] Itching Grass Pollen Shortness of Breath House Dust Unknown Mold Unknown Penicillins Unknown Tree And Shrub Poll* Unknown Vicodin [Hydrocodon* Unknown montelukast (SINGULAIR) 10 mg tablet Take 1 tablet by mouth daily at bedtime. azelastine 0.1% nasal spray USE 1 SPRAY(S) IN EACH NOSTRIL TWICE DAILY idnwfiimvkn-qqhdczpsj-xlfzgcwe (TRELEGY ELLIPTA) 200-62.5-25 mcg inhalation powder Inhale 1 Puff asinstructed once daily. duloxetine HCl (DULOXETINE ORAL) Take 40 mg by mouth once daily. esomeprazole (NEXIUM) 20 mg capsule Take 20 mg by mouth DAILY (6 AM). albuterol (PROVENTIL) 2.5 mg /3 mL (0.083 %) nebulizer solution Use 3 mL via nebulizer every 4 hours as needed. baclofen (LIORESAL) 10 mg tablet Take by mouth. cyanocobalamin (VITAMIN B-12) 1,000 mcg tab Take by mouth. ergocalciferol 50,000 unit capsule (VITAMIN D2, DRISDOL) Take by mouth. fluticasone (FLONASE) 50 mcg/actuation nasal spray Fluticasone Propionate Active 2 SPRAY INTRANASALDAILY March 20, 2022 12:00am lisinopril (ZESTRIL, PRINIVIL) 5 mg tablet Take by mouth. loratadine 10 mg cap Take [address] (PROTONIX) 20 mg tablet Take by mouth. rOPINIRole (REQUIP) 0.5 mg tablet Take by mouth. acetaminophen (TYLENOL) 500 mg tablet Take by mouth. insulin aspart U-100 (NOVOLOG) 100 unit/mL Inject subcutaneously. insulin glargine (LANTUS) 100 unit/mL injection Insulin Glargine Active 50 UNIT SC EVERY EVENING April 02, 2022 11:01am ipratropium-albuterol (DUONEB) 0.5 mg-3 mg(2.5 mg base)/3 mL nebu Inhale 3 mL as instructed every 6hours as needed. potassium chloride ER (K-DUR, KLOR-CON) 20 mEq tablet Take by mouth. atorvastatin (LIPITOR) 40 mg tablet Take by mouth. furosemide (LASIX) 20 mg tablet Take 20 mg by mouth. metoprolol succinate ER (TOPROL XL) 50 mg 24 hr tablet Take by mouth. primidone (MYSOLINE) 50 mg tablet aspirin, enteric coated (ASPIRIN, ENTERIC COATED) 81 mg EC tablet Take 81 mg by mouth once daily. Social History Tobacco Use Smoking status: Former Packs/day: 1.00 Years: 25.00 Pack years: 25.00 Types: Cigarettes Quit date: 02/08/1980 Years since quittin.1 Smokeless tobacco: Never Vaping Use Vaping Use: Never used Substance Use Topics Alcohol use: Never Drug use: Never Family History Problem Relation Age of Onset Emphysema Mother Colon Cancer Mother Emphysema Father Heart Attack Father Alcohol abuse Father Breast Cancer Sister COPD Brother PAST SURGICAL HISTORY Procedure Laterality Date D&C, DIAG AND/OR THERAPEUTIC HERNIA REPAIR HX umbilical hernia HYSTERECTOMY HX REMV CATARACT EXTRACAP,INSERT LENS Bilateral 10/10/2022September one eye, October other eye. Pt unsure of which was first. SURGERY ADD 1998 left thumb surgery TONSILLECTOMY & ADENOIDECTOMY <AGE 11 TOTAL KNEE REPLACEMENT Bilateral TRACHEOSTOMY HX I reviewed the past medical history, family history, social history and surgical history with changes noted above and updated in EMR. IMMUNIZATIONS Prevnar - xx Pneumovax 23 - 10/10/2014 Influenza - 08/10/2022 COVID-19 - 12/15/2020, 08/10/2022 ROS: General: No fevers, chills or night sweats. No unintended weight loss. Appetite good. Eyes, Ears, nose, throat: Post nasal drip, rhinorrhea. No purulent nasal discharge, epistaxis. No hoarseness. Vision stable. Cardiac: No angina, orthopnea. Resp: See HPI. GI: No heartburn, dysphagia. Musculoskeletal: Chronic back pain. Neuro: No headache, focal weakness, tremor. Skin: No rash. Otherwise negative. PHYSICAL EXAMINATION: BP 118/78 Pulse (!) 59 Resp 17 Wt 103.4 kg (228 lb) SpO2 97% BMI 39.44 kg/m O2: 2L pulse dosed Gen: No acute distress. Cooperative with examination. HEENT: Normocephalic. Sclera, conjunctiva clear. Oral hygeine and dentition good. No thrush. Resp: No stridor, accessory respiratory muscle use, supra-sternal or intercostal retractions. No wheezes, crackles. CV: Regular rythm. Heart tones normal. Radial pulses normal. Abd: Non distended. MSK: No kyphoscoliosis. Ext: Warm and well perfused. No clubbing, cyanosis, edema. Skin: No rash, ecchymoses. Neuro: Mental status normal. Affect normal. No tremor. DATA: PFT, 05/14/2022 IMPRESSION: Spirometry shows no obstruction.The reduced FVC suggests restriction. Recommend lung volumes if clinically indicated. The increase in FEF 25-75 post-bronchodilator reflects an improvement in the small airway obstruction. Electronically Signed On 05-14-2022 17:35:10 EDT by Tara Khoury M.D. CXR, 03/24/2023 [facility] CTA chest, 03/24/2023 [facility] ASSESSMENT/PLAN: 1. Pneumonia of both lungs due to infectious organism, unspecified part of lung - ICD9: 483.8, ICD10: J18.9 (primary diagnosis) Patient completed Levaquin and is still on prednisone for AECOPD. Symptomatically improved. CT chest ordered to check for resolution. - CT CHEST WO IVCON 2. Asthma-COPD overlap syndrome (HCC) - ICD9: 493.20, ICD10: J44.9 Patient to switch to triple therapy with Trelegy. Albuterol HFA inhaler, 2 inhalations 10-15 minutes prior to activities associated with shortness ofbreath, and as needed for rescue relief of shortness of breath or wheezing, up to 4 times daily. Continue Singulair. May need to consider daily Azithromycin. 3. Post-nasal drip - ICD9: 784.91, ICD10: R09.82 Refilled flonase. - FLUTICASONE PROPIONATE 50 MCG/ACTUATION NASAL SPRAY,SUSPENSION 4. Seasonal allergies - ICD9: 477.9, ICD10: J30.2 See #2 and #3. Will check IgE and eosinophils. - IGE BLD - EOSINOPHIL ABS COUNT Portions of this documentation were copied and pasted from previous office visit notes in order to provide a cohesive continuity of the history. The note has been reviewed and edited and updated as necessary. Amy Yu PA-C documented in this encounterUniversity Hospitals [facility]06-15-2023 Miscellaneous Notes* Telephone Encounter - Edda Frances LPN - 03/24/2023 1:12 PM EDT Noted, thank you! Edda Frances LPN * Telephone Encounter - Lucina Pinzon RN - 03/24/2023 12:40 PM EDT Tish called. She was asking to speak with Dr. Yu regarding her blood pressure being low today at 75/45. I asked Tish if she had called her PCP, Dr. Magdaleno and Tish advised no, I can never get through to her office. I asked if she takes blood pressure medication and she advised yes, I told her not to take it today, but she said she took it this morning. I told her not to take it tomorrow. Advised that she needed to increase her fluid intake and use care when changing positions from laying to sitting to standing or sitting to standing. Again, I advised that she needed to contacther PCP, Tish said that Dr. Magdaleno's office was closed today. Called Dr. Mariola Magdaleno's office at [phone] and spoke with Madhuri. Reviewed the above message with her and asked their office to please reach out to Tish. Lucina Pinzon RN documented in this encounterUniversity Hospitals Ely[facility] Center12-09-2022 History of Present illness Narrative* Tara Khoury MD - 09/17/2022 2:45 PM EST Images from the original note were not included. . [facility] Note Patient name: Tish Butler PCP: Mariola Magdaleno MD CC: Asthma COPD HPI: Tish Butler 72 year old female former [id number] smoker having quit 1979 with PMH significant for morbid obesity, SELENA on CPAP, DM, CKD, asthma COPD overlap, allergies requiring immunotherapy in the past, HTN, chronic hypoxemic respiratory failure, history of tracheal stenosis. Past medical history is notable for emergent tracheostomy in 2013 for respiratory failure. She had tracheal stenosis, evaluated by thoracic surgery showing granulation tissue but no appreciable stenosis. At her initial visit, pulmonary function test showed mild restriction and small airways obstruction, chest imaging showed elevation of left hemidiaphragm with associated atelectasis. She was started on Advair 250/50 with as needed albuterol and weight loss was advised. Recent viral gastroenteritis COVIDnegative. Require albuterol with activity. No difficulty with the Advair, no oral effects or thrush. Has noted slight improvement in her dyspnea with the Advair. PAST MEDICAL HISTORY Diagnosis Date Allergies Atrial fibrillation (HCC) B12 deficiency Chronic low back pain Chronic respiratory failure with hypoxia (HCC) CKD (chronic kidney disease) COPD (chronic obstructive pulmonary disease) (HCC) Cor pulmonale (HCC) Depression Diabetes mellitus (HCC) Fibromyalgia GERD (gastroesophageal reflux disease) H/O fibromyositis HTN (hypertension) Mixed hyperlipidemia Morbid obesity (HCC) SELENA (obstructive sleep apnea) Osteoarthritis of multiple joints Rheumatic fever RLS (restless legs syndrome) Thoracic outlet syndrome Tracheal stenosis following tracheostomy (HCC) Vitamin D deficiency ALLERGIES Allergen Reactions Demerol [Meperidine] Itching Grass Pollen Shortness of Breath House Dust Unknown Mold Unknown Penicillins Unknown Tree And Shrub Poll* Unknown Vicodin [Hydrocodon* Unknown duloxetine HCl (DULOXETINE ORAL) Take 40 mg by mouth once daily. esomeprazole (NEXIUM) 20 mg capsule Take 20 mg by mouth DAILY (6 AM). fluticasone-salmeterol (ADVAIR DISKUS) 250-50 mcg/dose inhaler Inhale 1 Puff as instructed twice daily. RINSE AND GARGLE MOUTH WITH WATER AFTER EACH USE. albuterol (PROVENTIL) 2.5 mg /3 mL (0.083 %) nebulizer solution Use 3 mL via nebulizer every 4 hours as needed. baclofen (LIORESAL) 10 mg tablet Take by mouth. cyanocobalamin (VITAMIN B-12) 1,000 mcg tab Take by mouth. ergocalciferol 50,000 unit capsule (VITAMIN D2, DRISDOL) Take by mouth. fluticasone (FLONASE) 50 mcg/actuation nasal spray Fluticasone Propionate Active 2 SPRAY INTRANASALDAILY March 20, 2022 12:00am lisinopril (ZESTRIL, PRINIVIL) 5 mg tablet Take by mouth. loratadine 10 mg cap Take [address] (PROTONIX) 20 mg tablet Take by mouth. rOPINIRole (REQUIP) 0.5 mg tablet Take by mouth. insulin aspart U-100 (NOVOLOG) 100 unit/mL Inject subcutaneously. insulin glargine (LANTUS) 100 unit/mL injection Insulin Glargine Active 50 UNIT SC EVERY EVENING April 02, 2022 11:01am ipratropium-albuterol (DUONEB) 0.5 mg-3 mg(2.5 mg base)/3 mL nebu Inhale 3 mL as instructed every 6hours as needed. potassium chloride ER (K-DUR, KLOR-CON) 20 mEq tablet Take by mouth. atorvastatin (LIPITOR) 40 mg tablet Take by mouth. furosemide (LASIX) 20 mg tablet Take 20 mg by mouth. metoprolol succinate ER (TOPROL XL) 50 mg 24 hr tablet Take by mouth. primidone (MYSOLINE) 50 mg tablet aspirin, enteric coated (ASPIRIN, ENTERIC COATED) 81 mg EC tablet Take 81 mg by mouth once daily. montelukast (SINGULAIR) 10 mg tablet Take 1 tablet by mouth daily at bedtime. acetaminophen (TYLENOL) 500 mg tablet Take by mouth. oxyCODONE-acetaminophen (PERCOCET) 7.5-325 mg tablet Take by mouth. sertraline (ZOLOFT) 100 mg tablet gabapentin (NEURONTIN) 600 mg tablet Take 600 mg by mouth three times daily. Social History Tobacco Use Smoking status: Former Packs/day: 1.00 Years: 25.00 Pack years: 25.00 Types: Cigarettes Quit date: 02/08/1980 Years since quittin.6 Smokeless tobacco: Never Substance Use Topics Alcohol use: Never Drug use: Never PMH, Social history, family history and surgical history reviewed and updated in EMR REVIEW OF SYSTEMS: CONSTITUTIONAL: No fevers, chills, nightsweats, unintended weight loss HEENT: Denies current nasal congestion/sinus symptoms, allergy problems. CARDIOVASCULAR: No chest pain, palpitations, orthopnea, PND. Edema PULM: See HPI GI: No dysphagia/odynophagia, problematic reflux INTEGUMENTARY: No new skin changes or rashes PHYSICAL EXAMINATION: Wt 250 lb (113.4kg) BP 122/78, pulse 84, RR 15, SPO2 94% on oxygen General Appearance: Obese female, NAD Skin: Skin color, texture, turgor normal, no suspicious rashes or lesions. Head: Normocephalic, no masses, lesions, tenderness or abnormalities. Eyes: Sclera, conjunctiva normal Oropharynx: No oral lesions or thrush Lungs: Not labored, dullness to percussion left base, no wheezes or crackles Heart: Regular rate and rhythm, systolic murmur Extremities: Edema, no clubbing Assessment/Plan: 1. Asthma COPD overlap syndrome -Major component of dyspnea related to her obesity and elevated left hemidiaphragm -Continue Advair with as needed albuterol 2. Chronic hypoxemic respiratory failure -Continue supplemental oxygen 3. Former cigarette smoker -Former 40-oise-nplu smoker with mild COPD -Patient does not qualify for low-dose chest CT for cancer screening based on the duration of her smoking cessation 5. Morbid obesity -Class III obesity, BMI 43 -Weight loss advised as obesity portends poor control of asthma Tara Khoury MD [facility] documented in this encounterUniversity Hospitals [facility]08-05-2022 History of Present illness Narrative* Tara Khoury MD - 05/14/2022 1:30 PM EDT Images from the original note were not included. . [facility] Note Patient name: Tish Butler PCP: Mariola Magdaleno Referring Physician: Sonny CC: Establish care for COPD HPI: Tish Butler 72 year old female former 25 pack year smoker (quit in 1979) with PMH significant for morbid obesity, SELENA on CPAP, DM 2, CKD, allergies with immunotherapy in past, HTN and history of emergent tracheostomy in 2013 for respiratory failure, chronic hypoxemic respiratory failure on supplemental oxygen since 2009 who presents to establish care. Has a history of tracheal stenosis, evaluated by thoracic surgery with bronchoscopy showing granulation tissue but no appreciable stenosis. Has longstanding history of recurrent bronchitis. Has significant allergies requiring shots somay have had asthma for years. She was on Advair inhaler in past which helped her symptoms but she s topped using ICS/LABA once her inhaler was changed to a different brand and she felt that it was not as helpful. She mainly has dyspnea and chest tightness. Only wheezes when ill with upper respiratory infection. She claims to have bronchitis at least 4 or 5 times a year requiring antibiotics and steroids. Shortness of breath worsened with changes in weather, exposure to aerosols, when her allergies are acting up, and exposure to certain scents. No recent hospitalizations for her lung disease. DATA: Review of pulmonary function test show combined restriction and small airways obstruction that improves with bronchodilator. Imaging / Diagnostic Studies: Chest x-ray 1 view [facility] 03/20/2022; I have reviewed images which show mild elevation of left hemidiaphragm with associated atelectasis Left heart catheterization 04/23/2022: Left ventriculogram 60% Normal LV wall function and no significant coronary disease PAST MEDICAL HISTORY Diagnosis Date Allergies Atrial fibrillation ([facility]) B12 deficiency Chronic low back pain Chronic respiratory failure with hypoxia ([facility]) CKD (chronic kidney disease) COPD (chronic obstructive pulmonary disease) ([facility]) Cor pulmonale ([facility]) Depression Diabetes mellitus ([facility]) Fibromyalgia GERD (gastroesophageal reflux disease) H/O fibromyositis HTN (hypertension) Mixed hyperlipidemia Morbid obesity ([facility]) SELENA (obstructive sleep apnea) Osteoarthritis of multiple joints Rheumatic fever RLS (restless legs syndrome) Thoracic outlet syndrome Tracheal stenosis following tracheostomy ([facility]) Vitamin D deficiency ALLERGIES Allergen Reactions Demerol [Meperidine] Itching Grass Pollen Shortness of Breath House Dust Unknown Mold Unknown Penicillins Unknown Tree And Shrub Poll* Unknown Vicodin [Hydrocodon* Unknown albuterol (PROVENTIL) 2.5 mg /3 mL (0.083 %) nebulizer solution Use 3 mL via nebulizer every 4 hours as needed. baclofen (LIORESAL) 10 mg tablet Take by mouth. cyanocobalamin (VITAMIN B-12) 1,000 mcg tab Take by mouth. ergocalciferol 50,000 unit capsule (VITAMIN D2, DRISDOL) Take by mouth. fluticasone (FLONASE) 50 mcg/actuation nasal spray Fluticasone Propionate Active 2 SPRAY INTRANASALDAILY March 20, 2022 12:00am lisinopril (ZESTRIL, PRINIVIL) 5 mg tablet Take by mouth. loratadine 10 mg cap Take 10 mg by mouth. montelukast (SINGULAIR) 10 mg tablet Take by mouth. pantoprazole DR (PROTONIX) 20 mg tablet Take by mouth. rOPINIRole (REQUIP) 0.5 mg tablet Take by mouth. acetaminophen (TYLENOL) 500 mg tablet Take by mouth. insulin aspart U-100 (NOVOLOG) 100 unit/mL Inject subcutaneously. insulin glargine (LANTUS) 100 unit/mL injection Insulin Glargine Active 50 UNIT SC EVERY EVENING April 02, 2022 11:01am ipratropium-albuterol (DUONEB) 0.5 mg-3 mg(2.5 mg base)/3 mL nebu Inhale 3 mL as instructed every 6hours as needed. oxyCODONE-acetaminophen (PERCOCET) 7.5-325 mg tablet Take by mouth. potassium chloride ER (K-DUR, KLOR-CON) 20 mEq tablet Take by mouth. atorvastatin (LIPITOR) 40 mg tablet Take by mouth. furosemide (LASIX) 20 mg tablet Take 20 mg by mouth. metoprolol succinate ER (TOPROL XL) 50 mg 24 hr tablet Take by mouth. primidone (MYSOLINE) 50 mg tablet sertraline (ZOLOFT) 100 mg tablet aspirin, enteric coated (ASPIRIN, ENTERIC COATED) 81 mg EC tablet Take 81 mg by mouth once daily. gabapentin (NEURONTIN) 600 mg tablet Take 600 mg by mouth three times daily. fluticasone-salmeterol (ADVAIR DISKUS) 250-50 mcg/dose inhaler Inhale 1 Puff as instructed twice daily. RINSE AND GARGLE MOUTH WITH WATER AFTER EACH USE. Social History Tobacco Use Smoking status: Former Smoker Packs/day: 1.00 Years: 25.00 Pack years: 25.00 Types: Cigarettes Quit date: 02/08/1980 Years since quittin.2 Smokeless tobacco: Never Used Substance Use Topics Alcohol use: Never Drug use: Never Past history of dust exposure working in a [employer]. Pets: Dogs FAMILY HISTORY Problem Relation Age of Onset Emphysema Mother Colon Cancer Mother Emphysema Father Heart Attack Father Alcohol abuse Father Breast Cancer Sister COPD Brother PAST SURGICAL HISTORY Procedure Laterality Date D&C, DIAG AND/OR THERAPEUTIC HERNIA REPAIR HX umbilical hernia HYSTERECTOMY HX SURGERY ADD 1998 left thumb surgery TONSILLECTOMY & ADENOIDECTOMY <AGE 11 TOTAL KNEE REPLACEMENT Bilateral TRACHEOSTOMY HX PMH, Social history, family history and surgical history reviewed and updated in EMR REVIEW OF SYSTEMS: CONSTITUTIONAL: No fevers, chills, nightsweats, unintended weight loss, fatigue HEENT: Denies current headaches, nasal congestion/sinus symptoms, or problems with her allergies atthis time EYES: No diplopia or blurry vision. CARDIOVASCULAR: No chest pain, palpitations, orthopnea, PND. Occasional edema PULM: See HPI GI: No dysphagia/odynophagia, problematic reflux, constipation, diarrhea, changes in stool habits : No urinary complaints, including dysuria, gross hematuria or pyuria. NEURO: No new balance problems, peripheral weakness/paresthesias or numbness of concern. MUSC-SKEL: No new joint pain, swelling, or erythema. PSY: No concerns regarding depression, anxiety INTEGUMENTARY: No new skin changes, rashes, eczema PHYSICAL EXAMINATION: BP 102/57 Pulse 82 Resp 14 Wt 244 lb (110.7kg) SpO2 95[on 2 L o2 per NC]% General Appearance: Morbidly obese female, NAD Skin: Skin color, texture, turgor normal, no suspicious rashes or lesions. Head: Normocephalic, no masses, lesions, tenderness or abnormalities. Eyes: Sclera, conjunctiva normal Oropharynx: No oral lesions or thrush Neck: Tracheostomy scar, no masses or palpable thyroid Lungs: Not labored, normal to percussion, no wheezes or crackles Heart: Regular rate and rhythm, no murmurs or gallops Extremities: No edema or clubbing Musculoskeletal: No joint deformities or effusions Neurologic: Alert and oriented, no focal findings Lymph Nodes: No cervical lymphadenopathy and No supraclavicular lymphadenopathy. Assessment/Plan: 1. COPD -Combined restriction and obstruction with improvement in small airways obstruction with bronchodilator. Asthma COPD overlap syndrome more likely -Advair 250/50 with as needed albuterol 2. Chronic hypoxemic respiratory failure -Continue supplemental oxygen 3. History of tracheostomy -Shape of flow volume loop does not suggest tracheal stenosis 4. Former cigarette smoker -Former 49-cygb-hllq smoker having quit 1979 with COPD -Does not meet criteria for low-dose chest CT for cancer screening based on duration of her smokingcessation 5. Morbid obesity -Class 3 obesity, BMI 42 -Weight loss advised Tara Khoury MD [facility] documented in this encounterUniversity Hospitals [facility]08-05-2022 History of Present illness Narrative* BROWN Bentley - 05/14/2022 12:48 PM EDT PULM FUNCTION SMARTBLOCK: Provider: Tara Khoury MD Assisting Tech: BROWN Bentley Spirometry w/BD: 1 documented in this encounterUniversity Hospitals Ely[facility] Center07-07-2022 History of Present illness Narrative* On a scale of 0 to 10, the patient rates the pain at 7. * Pain Location: Low Back Pain. * Pain Quality: Aching. * Pain Radiation: Radiates down left leg to ankle. * Sensory/ Motor: None. * Timing/Duration: Constant and > 12 weeks duration. * Patient is a 71-year-old female with a past medical history significant for tremors, lumbar spondylosis, chronic pain, myalgia, lumbar stenosis, lumbar neuritis, cervical neuritis, cervical stenosis,myalgia, fibromyalgia and sacroiliitis. She also has a past medical history significant for COPD. She is on continuous oxygen. Patient states they live in [place]. It is becoming a lot for her to drive all the way here. She states that the car ride is excruciating to her. She then also has to come here for any treatments and things. She wonders about releasing herself from our care and finding somebody local to her. She states that she hates to do this and she does not want to leave but she needs to find somebody closer to her home. * Patient underwent recent bilateral sacroiliac joint injection that she states did not help but thenshe states that her right leg is better. She has some back pain that she rates a -04/2010. It is still going down the left leg. She underwent previous L4 5 and L5-S1 facet RFA. This was done on 12/07/2021 and did not get any significant relief. Patient also underwent previous C7-T1 cervical epiduralsteroid injection done on 07/31/2021 and she states that she had 90% relief for 2 months. * She continues on gabapentin 1200 mg 3 times a day as well as baclofen 10 mg up to 3 times. She tolerates these well. They help her. She is still using them. * At this time, her main concern is her left buttock and leg pain but she does not want to have anything else done here because she does not want to have to drive back. She states that it is just too far for her. She is sad to go but she states that the traveling is just too much on her. -[facility] Work Phone: [phone] NotePROCEDURE DETAILS Preoperative Diagnosis: Sacroiliitis, M46.1 Myalgia, unspecified site, M79.10 null, null Postoperative Diagnosis: Sacroiliitis, M46.1 Myalgia, unspecified site, M79.10 null, null Surgeon: Mello Pinedo Resident/Fellow/Other Put In Beat Adjuster: None of these were associated with this case Procedure: 1. BILAT SIJ & R TRAPEZIUS TPI 2. null Anesthesia: No anesthesiologist associated with this case Estimated Blood Loss: 0 Findings: NA Operative Report: Procedure: Intra-articular steroid injection into the left and right sacroiliac joints under fluoroscopic guidance/right trapezius trigger point injection Diagnosis: Sacroiliitis/myalgia Solution used: Kenalog 20 mg and 2 mL of 0.25% bupivacaine per sacroiliac joint/4 mL of lidocaine 1% for the trigger point Total contrast: 2 mL Omnipaque Local: 5 mL lidocaine 1% Anesthesia: Local Complications: None After informed consent was obtained the patient was brought to the OR and placed in prone position. The area in question was prepped and draped in sterile fashion. An AP fluoroscopic view of the sacrum was obtained and after local anesthetic was administered into the skin, a 22-gauge quincke needle was inserted into the skin and advanced into the left sacroiliac joint under intermittent fluoroscopic guidance. Contrast was administered and demonstrated appropriate intra-articular spread. The local anesthetic steroid solution was injected incrementally. The needle was removed. Bleeding was minimal. The procedure was repeated in the same manner on the opposite side. Next the patient's trigger point in the right trapezius muscle was identified. After the region was prepped in sterile fashion a 25-gauge needle was inserted into the skin and advanced into the belly of the muscle. Aspiration was negative. The local anesthetic solution was injected incrementally. The needle was removed. Bleeding was nil. The patient tolerated the procedure well was transferred to the recovery room in good condition. Attestation: Note Completion: Attending AttestationI performed the procedure without a resident Electronic Signatures: Mello Pinedo) (Signed 12-Mar-2022 17:30) Authored: Post-Operative Note, Chart Review, Note Completion Last Updated: 12-Mar-2022 17:30 by Mello Pinedo)[facility]05-11-2022 Chief complaint Narrative - Reported* An interactive audio and video telecommunication system which permits real time communications between the patient (at the originating site) and provider (at the distant site) was utilized to providethis telehealth service. * Verbal consent was requested and obtained from TISH ALICE on this date, 02/17/2022 09:15 AM , for a telehealth visit. * VIRTUAL [phone] * 1 WK F/U [facility] Work Phone: [phone] 601-844105-03-2022 Chief complaint Narrative - Reported* An interactive audio and video telecommunication system which permits real time communications between the patient (at the originating site) and provider (at the distant site) was utilized to providethis telehealth service. * Verbal consent was requested and obtained from TISH ALICE on this date, 02/09/2022 09:15 AM , for a telehealth visit. * PT CO BEING SICK X 1 WK OTC MEDS NOT HELPING COUGHING UP A LOT YELLOW PHLEGM AND HAS MADE HER VERY FATIGUE LOW GRADE FEVER SOB ON EXERTION O2 IS SET AT 3 [facility] Work Phone: [phone] 485-180904-21-2022 History of Present illness Narrative* On a scale of 0 to 10, the patient rates the pain at 7. * Pain Location: Low Back Pain and rt shoulder, lt foot /ankle. * Pain Quality: Burning and Sharp. * Pain Radiation: into bilat hips. * Timing/Duration: Constant and > 12 weeks duration. * Exacerbating Factors: motion, standing, stairs, walking and weightbearing. * Alleviating Factors: None. * Patient Education: * Inj. education completed written and verbally. * Patient is a 71-year-old female with a past medical history significant for tremors, lumbar spondylosis, chronic pain, myalgia, lumbar stenosis, lumbar neuritis, cervical neuritis, cervical stenosis,myalgia, fibromyalgia and sacroiliitis. She also has a past medical history significant for COPD. She is on continuous oxygen. At this time, unfortunate, she is still noticing the same amount of painthat she had last time. * Patient underwent previous L4 5 and L5-S1 facet RFA. This was done on 12/07/2021 and she states at this time she has not had any relief. She mainly has bilateral buttock pain left side greater than right side. She rates it a 7/10. She states that it is in the lower back and buttock. She has a hard time discerning which area of pain bothers her the most. * Patient also underwent previous C7-T1 cervical epidural steroid injection done on 07/31/2021 and she states that she had 90% relief for 2 months. At this time, her neck and arm symptoms are still controlled. She is noticing some right-sided shoulder blade pain along the scapular border. * She continues on gabapentin 1200 mg 3 times a day as well as baclofen 10 mg up to 3 times. She tolerates these well. They help her. She is still using them. She does not require any refills. She willcall when she does. She wonders what else can be done for her bilateral buttock pain and her right scapular border pain. -[facility] Work Phone: [phone] History of Present illness Narrative* On a scale of 0 to 10, the patient rates the pain at 9. * Pain Location: Low Back Pain. * Pain Quality: Burning and Sharp. * Pain Radiation: Radiates down left upper leg. * Sensory/ Motor: Pins and [place] and Once in a while. * Timing/Duration: Constant and > 12 weeks duration. * Patient is a 71-year-old female with a past medical history significant for tremors, lumbar spondylosis, chronic pain, myalgia, lumbar stenosis, lumbar neuritis, cervical neuritis, cervical stenosis,myalgia, fibromyalgia. and sacroiliitis. She also has a past medical history significant for COPD. She is on continuous oxygen. * Patient underwent recent 4 5 and L5-S1 facet RFA. This was done on 12/07/2021 and she states at thistime she has not had any relief. She states 0%. In fact, she feels worse. Prior to that she underwent L5-S1 epidural steroid injection done on 11/20/2021 that she states gave her 100% relief for 4 days and then her pain returned but upon discussing her pain her leg symptoms is still better. Her leg symptoms are still better. It is back pain. She states that she is just miserable. She states that she cannot stand to take a shower. She cannot do anything. * Patient also underwent previous C7-T1 cervical epidural steroid injection done on 07/31/2021 and she states that she had 90% relief for 2 months. At this time, her neck and arm symptoms are still controlled * She continues on gabapentin 1200 mg 3 times a day as well as baclofen 10 mg up to 3 times. She tolerates these well. They help her. She recently got sick. She stopped using her medical marijuana at that time. She states that at this time she is still not using it. [facility] Work Phone: [phone] History of Present illness Narrative* On a scale of 0 to 10, the patient rates the pain at 8. * now and 10/10 with standing, sitting and ADLs. * Pain Location: Low Back Pain and bilat sides. * Pain Quality: Aching and with sitting and gets sharp with standing at times feels like a marcela is being shoved up her back. * Pain Radiation: nto bilat gluteal and down the back of her legs stopping at the ankles, intermittently into rt foot. * Sensory/ Motor: Numbness, Pins and [place] and bilat feet. * Timing/Duration: Constant and > 12 weeks duration. * Exacerbating Factors: motion, sitting, standing, walking and weightbearing. * Alleviating Factors: None. * Patient Education: * Inj. education completed written and verbally. * Patient is a 71-year-old female with a past medical history significant for tremors, lumbar spondylosis, chronic pain, myalgia, lumbar stenosis, lumbar neuritis, cervical neuritis, cervical stenosis,myalgia, fibromyalgia. and sacroiliitis. She also has a past medical history significant for COPD. She is on continuous oxygen. She had an injection back in July but she failed to follow-up afterwards because she became very ill. She is just now starting to feel better. * Patient underwent C7-T1 cervical epidural steroid injection done on 07/31/2021 and she states that she had 90% relief for 2 months. Unfortunate, over the last few weeks she has noticed that her neck and arm symptoms are beginning to return but her lower back and leg symptoms are still much more bothersome. She underwent bilateral L3-S1 facet RFA done on 08/13/20 and had 80% relief of the back painshe continues to have back pain with bilateral leg pain that she rates an 8 10/10. Standing and walking make it worse. For maybe 3 months. She has to use a walker. She also has some left foot pain which she states started after she dropped a book on it while they were moving. It never got better. * She continues on gabapentin 1200 mg 3 times a day as well as baclofen 10 mg up to 3 times a she also uses medical marijuana. She tolerates these all fairly well. They do help her. Unfortunate, not quite enough. -[facility] Work Phone: [phone] Chief complaint Narrative - Reported* An interactive audio and video telecommunication system which permits real time communications between the patient (at the originating site) and provider (at the distant site) was utilized to providethis telehealth service. * Verbal consent was requested and obtained from TISH BUTLER on this date, 10/19/2021 11:45 AM , for a telehealth visit. * F/U WITH COLON AND CT. C/O BODY PAIN/ACHES [facility] Work Phone: [phone] Chief complaint Narrative - Reported* An interactive audio and video telecommunication system which permits real time communications between the patient (at the originating site) and provider (at the distant site) was utilized to providethis telehealth service. * Verbal consent was requested and obtained from TISH BUTLER on this date, 09/15/2021 02:00 PM , for a telehealth visit. * 1 WK COVID F/U. C/O PRODUCTIVE COUGH, FATIGUE, VERY LOW ENERGY [facility] Work Phone: [phone]) 103-817911-30-2021 Chief complaint Narrative - Reported* An interactive audio and video telecommunication system which permits real time communications between the patient (at the originating site) and provider (at the distant site) was utilized to providethis telehealth service. * Verbal consent was requested and obtained from TISH BUTLER on this date, 09/08/2021 10:00 AM , for a telehealth visit. * VIRTUAL VISIT - C/O ILLNESS SINCE TUESDAY - PRODUCTIVE COUGH, SOB, JUNIOR, RUNNY NOSE. NO KNOWN FEVER. OTC ROBITUSSIN AND LOZENGES [place]. [facility] Work Phone: [phone] History of Present illness Narrative* On a scale of 0 to 10, the patient rates the pain at 9. * Pain Location: Low Back Pain. * Pain Quality: Aching and Burning. * Pain Radiation: Radiates down bilateral legs. * Timing/Duration: Intermittent. * Patient is a 71-year-old female with a past medical history significant for tremors, lumbar spondylosis, chronic pain, myalgia, lumbar neuritis, cervical neuritis, cervical stenosis, myalgia, fibromyalgia. and sacroiliitis. She also has a past medical history significant for COPD. She is on continuous oxygen. * She presents today for a delayed follow-up. She has still been busy moving. She states that she is still not done. She can only do small amounts at a time because of all of her pain. She has neck pain with bilateral radiating arm pain as well as lower back pain with bilateral radiating leg pain. She rates the discomfort a 9/10. It is an aching and stabbing type pain. Is worse with any sort of physical activity or moving. She underwent bilateral L3-S1 facet RFA done on 08/13/20 and had 80% relieffor maybe 3 months. * She continues on gabapentin 1200 mg 3 times a day as well as baclofen 10 mg up to 3 times a she also uses medical marijuana. She tolerates these all fairly well. They do help her. Unfortunate, not quite enough. She wonders if there is something else she can do to try to get some relief. 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 Essential tremor acute Chronic respiratory failure with hypoxia, on home O2 therapy chronic COPD (chronic obstructive pulmonary disease) chronic Essential hypertension chron ic Paroxysmal atrial fibrillation July, chronic Moderate major depression no neactive Acute conjunctivitis of left eye noneactive Allergies noneactive Controlled type 2 diabetes mellitus noneactive Nasal sore noneactive GERD (gastroesophageal reflux disease) noneactive [facility] Work Phone: [phone] Evaluation note* Diagnosis Onset Date Resolution Status SELENA (obstructive sleep apnea) acute Essential hypertension chron ic Hyperlipidemia chronic Paroxysmal atrial fibrillation July, chronic 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 acute Chronic respiratory failure with hypoxia, on home O2 therapy chronic COPD (chronic obstructive pulmonary disease) chronic Essential hypertension chron ic Paroxysmal atrial fibrillation July, chronic Moderate major depression no neactive Allergies noneactive Controlled type 2 diabetes mellitus noneactive Screening for breast cancer noneactive [facility] Work Phone: Discharge summary Author Tish Stokes [facility] Note Date/Time January 02, 2025 2:1 9pm [facility] Medical Records Department [address] [place] [address] Discharge Summary 01/02/25 1336 MR#: [id number] Acct: [id number] Name: TISH BUTLER YOLI Rep #:[id number] : 1950 74 From: Tish Stokes DO PCP: Dr. Mariola Magdaleno MD Status:ADM IN [id number] Date of Admission: 01/01/25 Date of Discharge: 01/02/25 Primary Care Physician: Dr. Mariola Magdaleno MD Reason For Visit: INFLUENZA A WITH AE COPD Diagnosis Discharge Diagnosis (1) Influenza A: Status: Acute Code(s): J10.1 - Influenza due to other identified influenza virus with other respiratorymanifestations (2) COPD exacerbation: Status: Chronic Code(s): J44.1 - Chronic obstructive pulmonary disease with (acute) exacerbation (3) Acute bacterial bronchitis: Status: Acute Code(s): J20.8 - Acute bronchitis due to other specified organisms; B96.89 - Other specified bacterial agents as the cause of diseases classified elsewhere (4) Respiratory insufficiency: Status: Acute Code(s): R06.89 - Other abnormalities of breathing (5) Chronic respiratory failure with hypoxia, on home O2 therapy: Status: Chronic Code(s): J96.11 - Chronic respiratory failure with hypoxia; Z99.81 - Dependence on supplemental oxygen (6) Generalized weakness: Status: Acute Code(s): R53.1 - Weakness (7) Myalgia: Status: Acute Code(s): M79.10 - Myalgia, unspecified site (8) Malaise: Status: Acute Code(s): R53.81 - Other malaise (9) Obesity (BMI 30-39.9): Status: Acute Code(s): E66.9 - Obesity, unspecified (10) SELENA (obstructive sleep apnea): Status: Acute Code(s): G47.33 - Obstructive sleep apnea (adult) (pediatric) Medications at Discharge Home Medications fluticasone propionate 50 mcg/actuation nasal spray,suspension 2 spray intranasal DAILY nasal spray 03/20/22 loratadine 10 mg capsule 10 mg PO DAILY blood 03/20/22 aspirin 81 mg tablet,delayed release (Adult Low Dose Aspirin) 81 mg PO DAILY heart health 04/02/22 albuterol sulfate 90 mcg/actuation aerosol inhaler 2 puff inhalation Q6H PRN shortness of breath or wheezing #8.5 grams 04/20/22 albuterol sulfate 2.5 mg/3 mL (0.083 %) solution for nebulization 2.5 mg continuous nebulization Q4H PRN sob 09/16/22 emollient (Vanicream topical) applic topical 02/28/23 sodium chloride-aloe vera nasal gel ([place] Saline nasal gel) 1 applic topical HS PRN nasal gel 02/28/23 fluticasone fur. 200 mcg-umeclid 62.5 mcg-vilant 25 mcg inhalat.powder (Trelegy Ellipta) 1 inh inhalation DAILY breathi 04/11/23 insulin glargine 100 unit/mL subcutaneous cartridge 32 unit subcut QPM 11/08/23 blood sugar diagnostic (Accu-Chek SmartView Test Strips) #300 ea 01/02/24 blood-glucose meter (OneTouch Verio Flex Meter) #1 ea 03/19/24 azelastine 137 mcg (0.1 %) nasal spray 1 spray intranasal BID PRN congestion #30mL 04/04/24 atorvastatin 40 mg tablet (Lipitor) 40 mg PO DAILY #90 tabs 05/02/24 baclofen 10 mg tablet 10 mg PO TID PRN pain 05/02/24 naproxen sodium 220 mg capsule (Aleve) 220 mg PO Q12H PRN pain 05/02/24 duloxetine 40 mg capsule,delayed release 40 mg PO DAILY #90 caps 09/05/24 blood sugar diagnostic (OneTouch Verio test strips) #100 ea 10/23/24 esomeprazole magnesium 40 mg capsule,delayed release 40 mg PO BID #180 caps 10/23/24 insulin glargine 100 unit/mL (3 mL) subcutaneous pen 32 unit (0.32 mL) subcut QPM #15 mL 10/23/24 lisinopril 5 mg tablet 5 mg PO DAILY #90 tabs 10/23/24 metoprolol succinate 50 mg tablet,extended release 24 hr (Toprol XL) 50 mg PO DAILY #90 tabs 10/23/24 montelukast 10 mg tablet 10 mg PO QHS #90 tabs 10/23/24 potassium chloride 20 mEq tablet,extended release(part/cryst) (Klor-Con M) 20 meq PO DAILY #90 TABLETS 10/23/24 furosemide 20 mg tablet 40 mg (2 x 20 mg) PO BID #180 tabs 12/20/24 insulin syringe-needle U-100 0.3 mL 31 gauge x 5/16 (BD Insulin Syringe Ultra- Fine) #50 ea 12/20/24 prednisone 10 mg tablet 10 mg PO DAILY #30 tabs 01/02/25 Hospital Course Operations None Procedures - (Chest x-ray) Summary of Care Provided Minutes Spent on Discharge: 37 Hospital Course: Patient is a 74-year-old female with a history of COPD/asthma overlap syndrome, chronic hypoxemic respiratory failure, tracheal stenosis with previous emergent tracheostomy having granulation tissue requiring intervention and SELENA noncompliant with CPAP who presented to the emergency department at [facility] on 01/01/2025 with chief complaint of shortness of breath. She follows at baseline as an outpatient with Dr. Tara Khoury at [facility] for pulmonary medicine. She wears 2 L of supplemental oxygen at her baseline. Uponpresentation emergency department she complained of cough, generalized bodyaches, weakness and shortness of breath but no increase in oxygen requirements. She noted that she started to feel poorly on Tuesday and got worse which prompted evaluation emergency department. She also reported that her was ill as well. Vital signs on presentation showed temperature of 98.3, heart rate 90, respiratory 24, blood pressure was 112/68, and pulse ox was97% on 2 L nasal cannula. She did desat to 87% on her baseline 2 L nasal cannula and therefore was admitted to the hospital. CBC on presentation was unremarkable. She did have a mild left shift with 74.6% neutrophilia. Her chemistry panel was unremarkable. Initial troponin was slightly high at 19 but delta was 19 and third troponin was 18. BNP was normal. Chest x-ray showed stable left diaphragmatic elevation with chronic pulmonary scarring. Given her desaturation with exertion she was admitted to the medical floor and treated foracute exacerbation of COPD. By the a.m. of 01/02/2025 she was back to her baseline oxygen at rest and exertion. We did an ambulatory pulse ox and on her home oxygen she was 98% at rest and 96% with exertion. Patient states she was not quite back to her baseline but feeling much better. She does have a nebulizer at home and will continue to use this. We encouraged her to use Mucinex, continue her incentive spirometer and Acapella and she was sent home with a prednisone taper. She is able be discharged home in stable condition on 01/02/2025. She is to follow-up with her type bar and segment assembler as previously directed. She was evaluated by therapy services and there was no need for ongoing physicaltherapy at the time of discharge. Palliative care referral was considered and she was given information for this at the time of discharge. Discharge diagnoses: Acute exacerbation of COPD secondary to influenza A infection Exertional hypoxia-resolved Generalized weakness Obesity Essential hypertension Hyperlipidemia DM-2 History of tracheostomy with tracheal stenosis History of tobacco abuse Paroxysmal atrial fibrillation History of cor pulmonale Chronic RBBB History of thoracic outlet syndrome Seasonal allergies RLS Fibromyalgia GERD Osteoarthritis Depression Physical Exam Const alert, oriented x3, no apparent distress, no limitations and well nourished; Negative for average body habitus Constitutional Narrative: Obese, older, white female, sitting up in chair at the bedside talking on the phone, on her baseline oxygen at 2 L, no conversational dyspnea General Appearance: cooperative, comfortable, well kempt and well developed Exam Limitations: no limitations Nutritional Appearance: obese HEENT normocephalic, head/scalp atraumatic, hearing grossly normal bilaterally and moist oral mucous membranes HEENT Narrative: No thrush present, Mallampati 3 Eyes EOMs intact bilaterally and conjunctivae normal Eyes Narrative: No scleral icterus Neck supple Neck Narrative: Trachea midline, neck is short thick Resp normal respiratory effort, no retractions, no use of accessory muscles and No clear to auscultation bilaterally Resp Narrative: Very few scattered end expiratory wheezes, no signs of extremis, no conversational dyspnea, stable on home oxygen Auscultation: wheezes; Negative for rales or rhonchi Cardio regular rate, regular rhythm, S1 normal heart sound, S2 normal heart sound, no murmurs, no rub, no gallops and no clicks Extremity no clubbing, cyanosis or edema Extremity Narrative: Pedal pulses are 2+ Skin skin turgor normal and no jaundice Neuro oriented x3, moves all extremities and no focal motor deficits Speech: speech normal Psych affect normal Psych Narrative: Extremely pleasant, eye contact is good and patient interacts appropriately Weight / BMI Weight Weight: 103.5 kg Body Mass Index (BMI) 39.2 ABG / Lab / Microbiology Data 01/02/25 03:43 01/02/25 03:43 Laboratory: Laboratory Results - last 24 hr 01/01/25 17:50: WBC 6.8, RBC 4.19 L, Hgb 12.6, Hct 38.6, MCV 92.1, MCH 30.1, MCHC 32.6, RDW Std Deviation 45.6 H, RDW Coeff of Gil 13.4, Plt Count 175, MPV 10.3, Immature Gran % (Auto) 0.400, Neut % (Auto) 74.6 H, Lymph % (Auto) 7.2 L, [place] % (Auto) 17.1 H, Eos % (Auto) 0.1, Baso % (Auto) 0.6, Absolute Neuts (auto)5.1, Absolute Lymphs (auto) 0.49 L, Nucleated RBC % 0, Sodium 138, Potassium 3.8, Chloride 103, Carbon Dioxide 22.5, Anion Gap 13, BUN 13, Creatinine 1.05, Estim Creat Clear Calc 54.87, Est GFR (MDRD) Non-Af 55 L, BUN/Creatinine Ratio 12.4, Glucose 92, Hemoglobin A1c 6.2, Calcium 8.7, Troponin T High Sens 19 H, NTpro BNP II 732 01/01/25 18:18: PT 15.1 H, INR 1.2, APTT 30.4, Lactic Acid 1.1 01/01/25 20:23: Troponin T Hi Sens 2 Hr 19 H 01/01/25 21:00: Urine Color Yellow, Urine Clarity Sl. Cloudy, Urine pH 6.0, Ur Specific [place] 1.020, Urine Protein 30 H, Urine Glucose (UA) Normal, Urine Ketones Negative, Urine Occult Blood 10 H, Urine Nitrite Negative, Urine Bilirubin Negative, Urine Urobilinogen Normal, Ur Leukocyte Esterase 25 H, UrineRBC 0 SEEN, Urine WBC 0-5 SEEN, Ur Squamous Epith Cells 0-5 SEEN, Urine BacteriaRARE, Urine Mucus 0 SEEN 01/01/25 22:04: Magnesium 1.8, Troponin T Hi Sens 4Hr 18 H, Vitamin B12 334, TSH0.725 01/01/25 22:44: Serum Folate 9.11 01/01/25 23:40: POC Glucose 155 H 01/02/25 03:43: WBC 5.2, RBC 3.86 L, Hgb 11.9 L, Hct 36.2 L, MCV 93.8, MCH 30.8,MCHC 32.9, RDW Std Deviation 45.9 H, RDW Coeff of Gil 13.5, Plt Count 166, MPV 10.4, Immature Gran % (Auto) 0.400, Neut % (Auto) 92.1 H, Lymph % (Auto) 5.0 L, [place] % (Auto) 2.3, Eos % (Auto) 0.0, Baso % (Auto) 0.2, Absolute Neuts (auto) 4.8, Absolute Lymphs (auto) 0.26 L, Nucleated RBC % 0, Sodium 140, Potassium 4.5, Chloride 109 H, Carbon Dioxide 21.8, Anion Gap 10, BUN 13, Creatinine 0.90,Estim Creat Clear Calc 63.28, Est GFR (MDRD) Non-Af 67, BUN/Creatinine Ratio 14.1, Glucose 200 H, Calcium 8.2, Phosphorus 3.6, Total Bilirubin 0.36, AST 28, ALT 20, Alkaline Phosphatase 78, Total Protein 5.7 L, Albumin 3.5, Globulin 2.2,Albumin/Globulin Ratio 1.6, Triglycerides 39, Cholesterol 132, LDL Cholesterol, Calc 67, VLDL Cholesterol 8, HDL Cholesterol 57, Cholesterol/HDL Ratio 2.31 01/02/25 06:12: POC Glucose 181 H 01/02/25 11:44: POC Glucose 215 H Microbiology: Microbiology 01/01/25 17:53 Mucosa - Nose SARS-CoV-2, Influenza & RSV (PCR) - Final Influenzae A Radiography Diagnostic Testing: Radiology Impression Chest X-Ray 01/01/25 17:55 IMPRESSION: Stable left diaphragmatic elevation. Pulmonary findings are grossly unchanged when compared to prior examination dating back to 03/24/2023. Reading Location: [id number] Instructions Discharge Diet: Low fat / Low cholesterol Discharge Activity: Return to Normal Activity DC O2, CPAP, BIPAP Needs Home O2 Discharge instructions: Yes Type of respiratory needs?: Oxygen Oxygen frequency: Continuous Continuous oxygen liters per minute: 2 DC home with Oxygen: Yes Home O2 MD Review: I have reviewed the oxygen testing, and the patient qualifies for home oxygen equipment and portability. The patient is mobile in the home and the community. Meaningful Use Info Meaningful Use Meaningful Use Diagnoses (Choose all that apply): None applicable Ischemic Stroke Statin Dosing Therapy Reference: STATIN DOSE THERAPY REFERENCE: * Patients > 75 years receive moderate or high dose statin therapy. * Patients 75 years or YOUNGER should receive HIGH intensity statin dose unless contraindicated. You will be required to document reason for non-treatment if statin daily dose does not meet guidelines. HIGH DOSE STATIN THERAPY DAILY Atorvastatin > than or = to 40 mg Rosuvastatin > than or = to 20 mg Amlodipine + Atorvastatin > than or = to 2.5/40 mg Ezetimibe + Simvastatin 10/80 mg Simvastatin 80mg Discharge Plan Admission Admit Date/Time: 01/01/25 21:51 Primary Reason for Your Visit: Shortness of breath Attending Provider: Tish Stokes Primary Care Provider: Mariola Magdaleno Consulting Providers: Sunil Muir Instructions Additional Instructions / Restrictions: 1. Please use nebulizer at least 3 times daily for the next 3 to 5 days 2. Continue incentive spirometry and Acapella after discharge 3. Would recommend Mucinex 1200 mg p.o. twice daily for the next 7 days 4. Please follow-up with your type bar and segment assembler as previously directed Discharge Orders/Prescriptions Prescriptions: New prednisone 10 mg tablet 10 mg PO DAILY Qty: 30 0RF Rx Instructions: 4 tablets x 3 days, 3 tablets x 3 days, 2 tablets x 3 days, 1 tablet x 3 daysand stop Continued aspirin [Adult Low Dose Aspirin] 81 mg tablet,delayed release (DR/EC) 81 mg PO DAILY albuterol sulfate 90 mcg/actuation HFA aerosol inhaler 2 puff inhalation Q6H PRN (Reason: shortness of breath or wheezing) Qty: 8.5 1RF albuterol sulfate 2.5 mg /3 mL (0.083 %) solution for nebulization 2.5 mg continuous nebulization Q4H PRN (Reason: sob) Patient Comments: USE 1 VIAL IN NEBULIZER EVERY 4 HOURS NEEDED Trelegy Ellipta 200-62.5-25 mcg blister with device 1 inh inhalation DAILY emollient [Vanicream] Cream topical [place] Saline Gel 1 applic topical HS PRN (Reason: nasal gel) (DME) Accu-Chek SmartView Test Strip Strip See Rx Instructions .Route Qty: 300 1RF Rx Instructions: use three times daily to monitor blood glucose for type 2 DM naproxen sodium [Aleve] 220 mg capsule 220 mg PO Q12H PRN (Reason: pain) atorvastatin [Lipitor] 40 mg tablet 40 mg PO DAILY Qty: 90 4RF fluticasone propionate 50 mcg/actuation [place],Suspension 2 spray INTRANASAL DAILY loratadine 10 mg Capsule 10 mg PO DAILY insulin glargine 100 unit/mL cartridge 32 unit SUBCUT QPM baclofen 10 mg tablet 10 mg PO TID PRN (Reason: pain) (DME) blood-glucose meter [OneTouch Verio Flex meter] Misc See Rx Instructions .Route Qty: 1 0RF Rx Instructions: As directed azelastine 137 mcg (0.1 %) spray,non-aerosol 1 spray intranasal BID PRN (Reason: congestion) Qty: 30 0RF duloxetine 40 mg capsule,delayed release(DR/EC) 40 mg PO DAILY Qty: 90 0RF (DME) OneTouch Verio test strips Strip See Rx Instructions .Route Qty: 100 3RF Rx Instructions: 3 times daily esomeprazole magnesium 40 mg capsule,delayed release(DR/EC) 40 mg PO BID Qty: 180 1RF lisinopril 5 mg tablet 5 mg PO DAILY Qty: 90 0RF montelukast 10 mg tablet 10 mg PO QHS Qty: 90 1RF potassium chloride [Klor-Con M20] 20 mEq tablet,ER particles/crystals 20 meq PO DAILY Qty: 90 0RF metoprolol succinate [Toprol XL] 50 mg tablet extended release 24 hr 50 mg PO DAILY Qty: 90 3RF insulin glargine 100 unit/mL (3 mL) insulin pen 32 unit subcut QPM Qty: 15 0RF furosemide 20 mg tablet 40 mg PO BID Qty: 180 0RF (DME) insulin syringe-needle U-100 [BD Insulin Syringe Ultra-Fine] 0.3 mL 31 gauge x 5/16 syringe See Rx Instructions .Route Qty: 50 0RF Rx Instructions: As directed Referrals / Follow Up: Mariola Magdaleno MD [Primary Care Provider] - Disposition Disposition (needs filled in before D/C Order can be placed): Home, Self Care Charges/Coding Visit Charges Inpatient E&M: 22839 Disch Hosp >30min 01/02/25 1419 <Electronically signed by Tish Stokes DO> Cosigner Signature (if applicable): CC: Dr. Mariola Magdaleno MD; Dr. Tara Khoury MD; Dr. 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 Essential tremor acute Chronic respiratory failure with hypoxia, on home O2 therapy chronic COPD (chronic obstructive pulmonary disease) chronic Essential hypertension chron ic Paroxysmal atrial fibrillation July, chronic Moderate major depression no neactive Immunization due noneactive Establishing care with new doctor, encounter for noneactive Dysphagia noneactive Controlled type 2 diabetes mellitus noneactive GERD (gastroesophageal reflux disease) noneactive [facility] Work Phone: Evaluation note* Diagnosis Onset Date Resolution Status Chest pain acute Essential hypertension chron ic Hyperlipidemia chronic 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 Essential tremor acute Chronic respiratory failure with hypoxia, on home O2 therapy chronic COPD (chronic obstructive pulmonary disease) chronic Essential hypertension chron ic Paroxysmal atrial fibrillation July, chronic Moderate major depression no neactive Immunization due noneactive Establishing care with new doctor, encounter for noneactive Dysphagia noneactive Controlled type 2 diabetes mellitus noneactive GERD (gastroesophageal reflux disease) noneactive Dysphagia acute Regurgitation and rechewing of food acute [facility] Work Phone: Evaluation note* Diagnosis Chronic obstructive pulmonary disease, unspecified COPD type (HCC) [facility] Diagnosis Chronic obstructive pulmonary disease, unspecified COPD type (HCC)- Primary Chronic hypoxemic respiratory failure (HCC) Chronic respiratory failure History of tracheostomy Tracheostomy status Former cigarette smoker Personal history of tobacco use, presenting hazards to health Morbid obesity (HCC) Morbid obesity documented in this encounter [facility] note* Diagnosis Onset Date Resolution Status Chest pain acute Essential hypertension chron ic Hyperlipidemia chronic 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 Essential tremor acute Chronic respiratory failure with hypoxia, on home O2 therapy chronic COPD (chronic obstructive pulmonary disease) chronic Essential hypertension chron ic Paroxysmal atrial fibrillation July, chronic Moderate major depression no neactive Immunization due noneactive Establishing care with new doctor, encounter for noneactive Dysphagia noneactive Controlled type 2 diabetes mellitus noneactive GERD (gastroesophageal reflux disease) noneactive Dysphagia acute Regurgitation and rechewing of food acute Prepyloric ulcer acute Chronic respiratory failure with hypoxia, on home O2 therapy chronic Encounter for screening for COVID-19 noneactive Acute exacerbation of chroni c obstructive pulmonary disease (COPD) noneactive [facility] Work Phone: Evaluation note* Diagnosis Onset Date Resolution Status Chest pain acute Essential hypertension chron ic Hyperlipidemia chronic 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 Essential tremor acute Chronic respiratory failure with hypoxia, on home O2 therapy chronic COPD (chronic obstructive pulmonary disease) chronic Essential hypertension chron ic Paroxysmal atrial fibrillation July, chronic Moderate major depression no neactive Immunization due noneactive Establishing care with new doctor, encounter for noneactive Dysphagia noneactive Controlled type 2 diabetes mellitus noneactive GERD (gastroesophageal reflux disease) noneactive Dysphagia acute Regurgitation and rechewing of food acute Prepyloric ulcer acute Chronic respiratory failure with hypoxia, on home O2 therapy chronic Encounter for screening for COVID-19 noneactive Acute exacerbation of chroni c obstructive pulmonary disease (COPD) noneactive Prepyloric ulcer acute [facility] Work Phone: Evaluation note* Diagnosis Onset Date Resolution Status Prepyloric ulcer acute Chronic respiratory failure with hypoxia, on home O2 therapy chronic Encounter for screening for COVID-19 noneactive Acute exacerbation of chroni c obstructive pulmonary disease (COPD) noneactive Prepyloric ulcer acute Prepyloric ulcer acute Prepyloric ulcer acute [facility] Work Phone: Evaluation note* Diagnosis Asthma-COPD overlap syndrome (HCC)- Primary Chronic hypoxemic respiratory failure (HCC) Chronic respiratory failure Former cigarette smoker Personal history of tobacco use, presenting hazards to health Morbid obesity (HCC) Morbid obesity [facility] Diagnosis Onset Date Resolution Status Essential tremor acute Chronic respiratory failure with hypoxia, on home O2 therapy chronic COPD (chronic obstructive pulmonary disease) chronic Essential hypertension chron ic Paroxysmal atrial fibrillation July, chronic Moderate major depression no neactive Acute conjunctivitis of left eye noneactive Allergies noneactive Controlled type 2 diabetes mellitus noneactive Nasal sore noneactive GERD (gastroesophageal reflux disease) noneactive Acute exacerbation of chroni c obstructive pulmonary disease (COPD) noneactive [facility] Work Phone: Evaluation note* Diagnosis Pneumonia of both lungs due to infectious organism, unspecified part of lung- Primary Asthma-COPD overlap syndrome (HCC) Post-nasal drip Postnasal drip Seasonal allergies Allergic rhinitis, cause unspecified [facility] Diagnosis Pneumonia of both lungs due to infectious organism, unspecified part of lung- Primary Asthma-COPD overlap syndrome (HCC) Morbid obesity (HCC) Morbid obesity Former cigarette smoker Personal history of tobacco use, presenting hazards to health History of tracheostomy Tracheostomy status Chronic hypoxemic respiratory failure (HCC) Chronic respiratory failure [facility] Diagnosis Asthma-COPD overlap syndrome- Primary Morbid obesity (HCC) Morbid obesity Former cigarette smoker Personal history of tobacco use, presenting hazards to health History of tracheostomy Tracheostomy status Seasonal allergies Allergic rhinitis, cause unspecified Chronic hypoxemic respiratory failure (HCC) Chronic respiratory failure [facility] Diagnosis Asthma-COPD overlap syndrome (HCC)- Primary Chronic hypoxemic respiratory failure (HCC) Chronic respiratory failure Obesity, Class II, BMI 35-39.9 Obesity, unspecified Former cigarette smoker Personal history of tobacco use, presenting hazards to health [facility] Diagnosis Asthma-COPD overlap syndrome (HCC) [facility]* Diagnosis Asthma-COPD overlap syndrome (HCC) documented in this encounter [facility] note* Diagnosis Asthma-COPD overlap syndrome (HCC)- Primary Chronic hypoxemic respiratory failure (HCC) Chronic respiratory failure History of tracheostomy Tracheostomy status Class 2 obesity Former cigarette smoker Personal history of tobacco use, presenting hazards to health documented in this encounter [facility] note* Diagnosis Acute and chronic respiratory failure with hypoxia (HCC)- Primary Acute and chronic respiratory failure [facility]* Diagnosis Asthma-COPD overlap syndrome (HCC)- Primary History of tracheostomy Tracheostomy status Chronic hypoxemic respiratory failure (HCC) Chronic respiratory failure Class 2 obesity [facility] HERE FOR F/U AFTER TEST * C/O HAND A DN FEET NUMBNESS -[facility] Work Phone: History of Present illness Narrative* The patient is being seen for the subsequent annual wellness visit. * Past Medical, Surgical and Family History: reviewed and updated in chart. * Medications and Supplements: Medications and supplements, including calcium and vitamins reviewed and updated in chart. * No, the patient is not using opioids. * Patient Self Assessment of Health Status: fair. * Tobacco use: Non-User * Alcohol use: Non-User * Illicit drug use: Non-User * Current diet: unhealthy diet. * Exercise Frequency: the patient does not exercise. * Depression/Suicide Screening: Patient has a current diagnosis of depression. * Hearing Impairment: none. * Cognitive Impairment: No cognitive impairment observed. * Bathing: performs independently. * Dressing: performs independently. * Walking: performs independently. * Managing Finances: needs assistance. * Shopping: needs assistance. * Managing Medications: performs independently. * Housework / Basic Home Maintenance: needs assistance. * Falls Risk Screening:. TISH has fallen in the last 6 months. Her fall resulted in the following injury: HURT HER LEFT THUMB. * Care Plan High Risk: In addition to the low/moderate risk interventions: Low/Moderate Risk: Regularphysical activity such as walking, water aerobics or dani chi to improve strength, balance, coordination and flexibility. Wear appropriate, sensible shoe wear. Remove fall hazards at home such as loose rugs, obstacles, use non-slip surface in bath or shower. Keep living space well lit. Use assistivedevices such as cane or walker if recommended and at home use handrails on stairs, grab bars for shower or tub, raised toilet seat and seat in the shower or tub. * Home safety risk factors: none. * HERE FOR F/U NO COMPLAINT * WELLNESS EXAM [facility] Work Phone: History of Present illness Narrative* COUGH , CHILLS, SOB, X 1WEEK * NO LOSS OF TASTE OR SMELL * NEBULIZER ROBITUSSIN MUCINEX * FULLY VACCINATED FOR COVID [facility] Work Phone: History of Present illness Narrative* The patient is being seen for the subsequent annual wellness visit. * Past Medical, Surgical and Family History: reviewed and updated in chart. * Medications and Supplements: Medications and supplements, including calcium and vitamins reviewed and updated in chart. * No, the patient is not using opioids. * Patient Self Assessment of Health Status: fair. * Tobacco use: Non-User * Alcohol use: Non-User * Illicit drug use: Non-User * Current diet: unhealthy diet. * Exercise Frequency: the patient does not exercise. * Depression/Suicide Screening: Patient has a current diagnosis of depression. * Hearing Impairment: none. * Cognitive Impairment: No cognitive impairment observed. * Bathing: performs independently. * Dressing: performs independently. * Walking: performs independently. * Managing Finances: needs assistance. * Shopping: needs assistance. * Managing Medications: performs independently. * Housework / Basic Home Maintenance: needs assistance. * Falls Risk Screening:. TISH has fallen in the last 6 months. Her fall resulted in the following injury: HURT HER LEFT THUMB. * Care Plan High Risk: In addition to the low/moderate risk interventions: Low/Moderate Risk: Regularphysical activity such as walking, water aerobics or dani chi to improve strength, balance, coordination and flexibility. Wear appropriate, sensible shoe wear. Remove fall hazards at home such as loose rugs, obstacles, use non-slip surface in bath or shower. Keep living space well lit. Use assistivedevices such as cane or walker if recommended and at home use handrails on stairs, grab bars for shower or tub, raised toilet seat and seat in the shower or tub. * Home safety risk factors: none. * HERE FOR F/U NO COMPLAINT * WELLNESS EXAM [facility] Work Phone: History of Present illness Narrative* HERE FOR F/U AFTER CXR * STILL HAS SOME RESIDUAL COUGH AND CONGESTION * A FEW LOW BS [facility] Work Phone: History of Present illness Narrative* HERE FOR F/U AFTER CXR * STILL HAS SOME RESIDUAL COUGH AND CONGESTION * A FEW LOW BS [facility] Work Phone: History of Present illness Narrative* PT C/O PRODUCTIVE COUGH SINUS CONGESTION MILD SOB * FOR 4 DAYS * SEVERITY: MODERATE * CHARACTERISTIC: ACUTE * EXACERBATION FACTOR: NONE * RELIEVING FACTOR: NONE * ASSOCIATED SYMPTOMS: HAD CHILLS BUT NO FEVER, NO LOSS OF TASTE OR SMELL * PRIOR TX: ROBITUSSIN TYLENOL COUGH DROPS [facility] Work Phone: History of Present illness Narrative* PT C/O PRODUCTIVE COUGH, JOE * FOR 6 WEEKS * SEVERITY: MODERATE * CHARACTERISTIC: ACUTE ON CHRONIC * EXACERBATION FACTOR: EXERTION * RELIEVING FACTOR: REST * ASSOCIATED SYMPTOMS: FATIGUE TIRED * PRIOR TX: Z PAC , PREDNISONE [facility] Work Phone: History of Present illness Narrative* F/U AFTER TESTS * C/O BODY ACHE, HAS BEEN MORE DEPRESSED * NO ABDOMINAL PAIN NO DIARRHEA * RE[PRTS THE BS HAS BEEN GOOD AT HOME [facility] Work Phone: History of Present illness NarrativeHERE FOR F/U [facility]INT[facility] Work [facility] of Present illness NarrativeHERE FOR F/U [facility]INT[facility] illness Narrative* PT C/O COUGH JOE * FOR 1 WEEK * SEVERITY: MODERATE * CHARACTERISTIC: ACUTE * EXACERBATION FACTOR: NONE * RELIEVING FACTOR: NONE * ASSOCIATED SYMPTOMS: HAD FEVER AND CHILLS, NO LOSS OF TASTE OR SMELL, NEEDS MORE O2 * PRIOR TX: MUCINEX NEBULIZTERS ALEX DICKSON * FULLY VACCINATED FOR COVID [facility] Work Phone: History of Present illness Narrative* F/U , FEELS BETTER, STILL HAS SOME COUGH, HAS SOME JOE * C/O INCREASED RESTLESS LEGS [facility] Work Phone: History of Present illness Narrative* HERE FOR F/U COUGH IS BETTER BUT HAS RETURNED * C/O CLOUDY URINE * NO DYSURIA * C/O URGENCY AND FREQUENCY [facility] Work Phone: History of Present illness Narrative* HERE FOR F/U WITH LABS * ER F/U, HAD CP, WORK UP IN ER NEGATIVE, FEELS FINE NOW [facility] Work Phone: Hospital Discharge instructions Additional Instructions Chest pain with a negative work-up. Follow-up with your doctor. Return if any worsening symptoms.[facility] Work Phone: [facility] Work Phone[facility] Work Phone: Hospital Discharge instructions Additional Instructions The CT scan of your head looked normal. Take tylenol as needed.[facility] Work Phone: [facility] Work [facility] Hospital Discharge instructions Additional Instructions Take antibiotics as prescribed. Follow-up outpatient return for any worsening symptomsW[facility] Work Phone: Reason for referral (narrative)* Outpatient Procedure (Routine) - Authorized Specialty Diagnoses / Procedures Referred By Contac t Referred To Contact [facility] Diagnoses Asthma-COPD overlap syndrome (HCC) Procedures NITRIC OXIDE, EXHALED NITRIC OXIDE GAS DETERMINATION Tara Khoury MD [address] [place] [address] [facility] [place] [address] [facility] [address] Referral ID Status Reason Start Date Expiration Date Visits Requested Visits Authorized [id number] Authorized Auto-Generat ed Referral 12/09/2023 01/07/2025 1 1 * Outpatient Procedure (Routine) - Authorized Specialty Diagnoses / Procedures Referred By Contac t Referred To Contact [facility] Diagnoses Asthma-COPD overlap syndrome (HCC) Procedures SPIROMETRY WITH DILATOR IF OBSTRUCTED BRNCDILAT RSPSE SPMTRY PRE&POST-BRNCDILAT ADMN Tara Khoury MD [address] [place] [address] [facility] [place] [address] [place] [address] Referral ID Status Reason Start Date Expiration Date Visits Requested Visits Authorized [id number] Authorized Auto-Generat ed Referral 12/09/2023 01/07/2025 1 1 [facility] (narrative)No reason for referral information availableWUniversity Hospitals St. [facility] Work Phone: Assessments Diagnosis Osteoarthritis of both knees , unspecified osteoarthritis type - Primary Diagnosis Osteoarthritis of both knees , unspecified osteoarthritis type - Primary Diagnosis Osteoarthritis of both knees , unspecified osteoarthritis type Diagnosis Status post total bilateral knee replacement- Primary Diagnosis Status post total bilateral knee replacement- Primary Diagnosis Status post total bilateral knee replacement- Primary Reason for Referral Status Reason Specialty Diagnoses / Procedures Referred By Contact Referred To Contact Authorized Patient Preference Physical Therapy / Rehabilitation Diagnoses Status post total bilateral knee replacement Alexandru Weiner MD [address] [place] [id number] Specialty Diagnoses / Procedures Referred By Contac t Referred To Contact Diagnoses Chronic obstructive pulmonary disease, unspecified COPD type (HCC) Tara Khoury MD [address] [place] [address] Referral ID Status Reason Start Date Expiration Date V isits Requested Visits Authorized [id number] Pending Review 1 1 Specialty Diagnoses / Procedures Referred By Contac t Referred To Contact [facility] Diagnoses Chronic obstructive pulmonary disease, unspecified COPD type (HCC) Procedures SPIROMETRY WITH DILATOR IF OBSTRUCTED BRNCDILAT RSPSE SPMTRY PRE&POST-BRNCDILAT ADMTara Ruby MD [address] [place] [address] [facility] [place] [address] [place] [address] Referral ID Status Reason Start Date Expiration Date V isits Requested Visits Authorized [id number] Closed Auto-Generated Referral Patient Cleared - INN Insurance Found 05/14/2022 06/13/2023 1 1 Specialty Diagnoses / Procedures Referred By Contac t Referred To Contact CT IMAGING Diagnoses Pneumonia of both lungs due to infectious organism, unspecified part of lung Procedures CT CHEST WO IVCON DIAGNOSTIC COMPUTED TOMOGRAPHY THORAX W/O CNTRST Amy Yu [facility] [address] [place] [address] Ct Imaging Referral ID Status Reason Start Date Expiration Date Visits Requested Visits Authorized [id number] Authorized Auto-Generat ed Referral 05/24/2023 04/30/2024 1 1 History of Present Illness * Alexandru Weiner MD - 10/24/2018 5:35 PM EST Dictation on: 10/24/2018 5:35 PM by: ALEXANDRU WEINER [[id number]] Prescription for ultram written patient told not to take anymore than needed as they are addictive in this encounter* Alexandru Weiner MD - 03/21/2019 2:52 PM EDT Tish is seen for followup of her arm bilateral knee replacements. She seems to be doing very well at this point in time. Its been over 6 months now and the wounds are maturing. She has full extension of both knees. Walks well. Flexion is excellent as well as she has no instability. IMPRESSION Doing well. PLAN I think she can continue activities as tolerated and p.r.n. return now. Specifically, I told her tocall should she have any pain redness, warmth, sign of infection or other problems and mentioned that she should get any infection in her body, to treat it quickly to minimize the chance of spreadingto the knee joints. documented in this encounter* Alexandru Weiner MD - 11/21/2018 5:26 PM EST Dictation on: 11/21/2018 5:27 PM by: ALEXANDRU WEINER [[id number]] in this encounter Summary Purpose Family History No Family History Records Found Child Name Dates Details Family history of chronic ob structive pulmonary disease(V17.6, Z82.5) Status:Active Mother Name Dates Details Family history of (7 99.9, R99) Status:Active Family history of chronic ob structive pulmonary disease(V17.6, Z82.5) Status:Active Family history of Primary ma lignant neoplasm of colon(153.9, C18.9) Status:Active Father Name Dates Details Family history of (7 99.9, R99) Status:Active Family history of chronic ob structive pulmonary disease(V17.6, Z82.5) Status:Active Family history of alcoholism (V17.0, Z81.1) Status:Active Family history of emphysema( V17.6, Z82.5) Status:Active Family history of myocardial infarction(V17.3, Z82.49) Status:Active Sister Name Dates Details Family history of Primary ma lignant neoplasm of lung(162.9, C34.90) Status:Active Family history of Primary ma lignant neoplasm of female breast(174.9, C50.919) Status:Active Brother Name Dates Details Family history of (7 99.9, R99) Status:Active Family history of chronic ob structive pulmonary disease(V17.6, Z82.5) Status:Active Child Name Dates Details Family history of chronic ob structive pulmonary disease(V17.6, Z82.5) Status:Active Mother Name Dates Details Family history of (7 99.9, R99) Status:Active Family history of chronic ob structive pulmonary disease(V17.6, Z82.5) Status:Active Family history of Primary ma lignant neoplasm of colon(153.9, C18.9) Status:Active Father Name Dates Details Family history of (7 99.9, R99) Status:Active Family history of chronic ob structive pulmonary disease(V17.6, Z82.5) Status:Active Family history of alcoholism (V17.0, Z81.1) Status:Active Family history of emphysema( V17.6, Z82.5) Status:Active Family history of myocardial infarction(V17.3, Z82.49) Status:Active Sister Name Dates Details Family history of Primary ma lignant neoplasm of lung(162.9, C34.90) Status:Active Family history of Primary ma lignant neoplasm of female breast(174.9, C50.919) Status:Active Brother Name Dates Details Family history of (7 99.9, R99) Status:Active Family history of chronic ob structive pulmonary disease(V17.6, Z82.5) Status:Active Child Name Dates Details Family history of chronic ob structive pulmonary disease(V17.6, Z82.5) Status:Active Mother Name Dates Details Family history of (7 99.9, R99) Status:Active Family history of chronic ob structive pulmonary disease(V17.6, Z82.5) Status:Active Family history of Primary ma lignant neoplasm of colon(153.9, C18.9) Status:Active Father Name Dates Details Family history of (7 99.9, R99) Status:Active Family history of chronic ob structive pulmonary disease(V17.6, Z82.5) Status:Active Family history of alcoholism (V17.0, Z81.1) Status:Active Family history of emphysema( V17.6, Z82.5) Status:Active Family history of myocardial infarction(V17.3, Z82.49) Status:Active Sister Name Dates Details Family history of Primary ma lignant neoplasm of lung(162.9, C34.90) Status:Active Family history of Primary ma lignant neoplasm of female breast(174.9, C50.919) Status:Active Brother Name Dates Details Family history of (7 99.9, R99) Status:Active Family history of chronic ob structive pulmonary disease(V17.6, Z82.5) Status:Active Child Name Dates Details Family history of chronic ob structive pulmonary disease(V17.6, Z82.5) Status:Active Mother Name Dates Details Family history of (7 99.9, R99) Status:Active Family history of chronic ob structive pulmonary disease(V17.6, Z82.5) Status:Active Family history of Primary ma lignant neoplasm of colon(153.9, C18.9) Status:Active Father Name Dates Details Family history of (7 99.9, R99) Status:Active Family history of chronic ob structive pulmonary disease(V17.6, Z82.5) Status:Active Family history of alcoholism (V17.0, Z81.1) Status:Active Family history of emphysema( V17.6, Z82.5) Status:Active Family history of myocardial infarction(V17.3, Z82.49) Status:Active Sister Name Dates Details Family history of Primary ma lignant neoplasm of lung(162.9, C34.90) Status:Active Family history of Primary ma lignant neoplasm of female breast(174.9, C50.919) Status:Active Brother Name Dates Details Family history of (7 99.9, R99) Status:Active Family history of chronic ob structive pulmonary disease(V17.6, Z82.5) Status:Active Child Name Dates Details Family history of chronic ob structive pulmonary disease(V17.6, Z82.5) Status:Active Mother Name Dates Details Family history of (7 99.9, R99) Status:Active Family history of chronic ob structive pulmonary disease(V17.6, Z82.5) Status:Active Family history of Primary ma lignant neoplasm of colon(153.9, C18.9) Status:Active Father Name Dates Details Family history of (7 99.9, R99) Status:Active Family history of chronic ob structive pulmonary disease(V17.6, Z82.5) Status:Active Family history of alcoholism (V17.0, Z81.1) Status:Active Family history of emphysema( V17.6, Z82.5) Status:Active Family history of myocardial infarction(V17.3, Z82.49) Status:Active Sister Name Dates Details Family history of Primary ma lignant neoplasm of lung(162.9, C34.90) Status:Active Family history of Primary ma lignant neoplasm of female breast(174.9, C50.919) Status:Active Brother Name Dates Details Family history of (7 99.9, R99) Status:Active Family history of chronic ob structive pulmonary disease(V17.6, Z82.5) Status:Active Child Name Dates Details Family history of chronic ob structive pulmonary disease(V17.6, Z82.5) Status:Active Mother Name Dates Details Family history of (7 99.9, R99) Status:Active Family history of chronic ob structive pulmonary disease(V17.6, Z82.5) Status:Active Family history of Primary ma lignant neoplasm of colon(153.9, C18.9) Status:Active Father Name Dates Details Family history of (7 99.9, R99) Status:Active Family history of chronic ob structive pulmonary disease(V17.6, Z82.5) Status:Active Family history of alcoholism (V17.0, Z81.1) Status:Active Family history of emphysema( V17.6, Z82.5) Status:Active Family history of myocardial infarction(V17.3, Z82.49) Status:Active Sister Name Dates Details Family history of Primary ma lignant neoplasm of lung(162.9, C34.90) Status:Active Family history of Primary ma lignant neoplasm of female breast(174.9, C50.919) Status:Active Brother Name Dates Details Family history of (7 99.9, R99) Status:Active Family history of chronic ob structive pulmonary disease(V17.6, Z82.5) Status:Active Unknown Family Member Name Dates Details : Mother, Father, Br other Status:Active Family history of chronic ob structive pulmonary disease: Mother, Father, Child, Brother(V17.6, Z82.5) Status:Active Primary malignant neoplasm o f colon: Mother Status:Active Primary malignant neoplasm o f lung: Sister Status:Active Primary malignant neoplasm o f female breast: Sister Status:Active Family history of alcoholism : Father(V17.0, Z81.1) Status:Active Family history of emphysema: Father(V17.6, Z82.5) Status:Active Family history of myocardial infarction: Father(V17.3, Z82.49) Status:Active Unknown Family Member Name Dates Details : Mother, Father, Br other Status:Active Family history of chronic ob structive pulmonary disease: Mother, Father, Child, Brother(V17.6, Z82.5) Status:Active Primary malignant neoplasm o f colon: Mother Status:Active Primary malignant neoplasm o f lung: Sister Status:Active Primary malignant neoplasm o f female breast: Sister Status:Active Family history of alcoholism : Father(V17.0, Z81.1) Status:Active Family history of emphysema: Father(V17.6, Z82.5) Status:Active Family history of myocardial infarction: Father(V17.3, Z82.49) Status:Active Unknown Family Member Name Dates Details : Mother, Father, Br other Status:Active Family history of chronic ob structive pulmonary disease: Mother, Father, Child, Brother(V17.6, Z82.5) Status:Active Primary malignant neoplasm o f colon: Mother Status:Active Primary malignant neoplasm o f lung: Sister Status:Active Primary malignant neoplasm o f female breast: Sister Status:Active Family history of alcoholism : Father(V17.0, Z81.1) Status:Active Family history of emphysema: Father(V17.6, Z82.5) Status:Active Family history of myocardial infarction: Father(V17.3, Z82.49) Status:Active Unknown Family Member Name Dates Details : Mother, Father, Br other Status:Active Family history of chronic ob structive pulmonary disease: Mother, Father, Child, Brother(V17.6, Z82.5) Status:Active Primary malignant neoplasm o f colon: Mother Status:Active Primary malignant neoplasm o f lung: Sister Status:Active Primary malignant neoplasm o f female breast: Sister Status:Active Family history of alcoholism : Father(V17.0, Z81.1) Status:Active Family history of emphysema: Father(V17.6, Z82.5) Status:Active Family history of myocardial infarction: Father(V17.3, Z82.49) Status:Active Unknown Family Member Name Dates Details : Mother, Father, Br other Status:Active Family history of chronic ob structive pulmonary disease: Mother, Father, Child, Brother(V17.6, Z82.5) Status:Active Primary malignant neoplasm o f colon: Mother Status:Active Primary malignant neoplasm o f lung: Sister Status:Active Primary malignant neoplasm o f female breast: Sister Status:Active Family history of alcoholism : Father(V17.0, Z81.1) Status:Active Family history of emphysema: Father(V17.6, Z82.5) Status:Active Family history of myocardial infarction: Father(V17.3, Z82.49) Status:Active Unknown Family Member Name Dates Details : Mother, Father, Br other Status:Active Family history of chronic ob structive pulmonary disease: Mother, Father, Child, Brother(V17.6, Z82.5) Status:Active Primary malignant neoplasm o f colon: Mother Status:Active Primary malignant neoplasm o f lung: Sister Status:Active Primary malignant neoplasm o f female breast: Sister Status:Active Family history of alcoholism : Father(V17.0, Z81.1) Status:Active Family history of emphysema: Father(V17.6, Z82.5) Status:Active Family history of myocardial infarction: Father(V17.3, Z82.49) Status:Active Unknown Family Member Name Dates Details : Mother, Father, Br other Status:Active Family history of chronic ob structive pulmonary disease: Mother, Father, Child, Brother(V17.6, Z82.5) Status:Active Primary malignant neoplasm o f colon: Mother Status:Active Primary malignant neoplasm o f lung: Sister Status:Active Primary malignant neoplasm o f female breast: Sister Status:Active Family history of alcoholism : Father(V17.0, Z81.1) Status:Active Family history of emphysema: Father(V17.6, Z82.5) Status:Active Family history of myocardial infarction: Father(V17.3, Z82.49) Status:Active Unknown Family Member Name Dates Details : Mother, Father, Br other Status:Active Family history of chronic ob structive pulmonary disease: Mother, Father, Child, Brother(V17.6, Z82.5) Status:Active Primary malignant neoplasm o f colon: Mother Status:Active Primary malignant neoplasm o f lung: Sister Status:Active Primary malignant neoplasm o f female breast: Sister Status:Active Family history of alcoholism : Father(V17.0, Z81.1) Status:Active Family history of emphysema: Father(V17.6, Z82.5) Status:Active Family history of myocardial infarction: Father(V17.3, Z82.49) Status:Active Unknown Family Member Name Dates Details : Mother, Father, Br other Status:Active Family history of chronic ob structive pulmonary disease: Mother, Father, Child, Brother(V17.6, Z82.5) Status:Active Primary malignant neoplasm o f colon: Mother Status:Active Primary malignant neoplasm o f lung: Sister Status:Active Primary malignant neoplasm o f female breast: Sister Status:Active Family history of alcoholism : Father(V17.0, Z81.1) Status:Active Family history of emphysema: Father(V17.6, Z82.5) Status:Active Family history of myocardial infarction: Father(V17.3, Z82.49) Status:Active Unknown Family Member Name Dates Details : Mother, Father, Br other Status:Active Family history of chronic ob structive pulmonary disease: Mother, Father, Child, Brother(V17.6, Z82.5) Status:Active Primary malignant neoplasm o f colon: Mother Status:Active Primary malignant neoplasm o f lung: Sister Status:Active Primary malignant neoplasm o f female breast: Sister Status:Active Family history of alcoholism : Father(V17.0, Z81.1) Status:Active Family history of emphysema: Father(V17.6, Z82.5) Status:Active Family history of myocardial infarction: Father(V17.3, Z82.49) Status:Active Unknown Family Member Name Dates Details : Mother, Father, Br other Status:Active Family history of chronic ob structive pulmonary disease: Mother, Father, Child, Brother(V17.6, Z82.5) Status:Active Primary malignant neoplasm o f colon: Mother Status:Active Primary malignant neoplasm o f lung: Sister Status:Active Primary malignant neoplasm o f female breast: Sister Status:Active Family history of alcoholism : Father(V17.0, Z81.1) Status:Active Family history of emphysema: Father(V17.6, Z82.5) Status:Active Family history of myocardial infarction: Father(V17.3, Z82.49) Status:Active Unknown Family Member Name Dates Details : Mother, Father, Br other Status:Active Family history of chronic ob structive pulmonary disease: Mother, Father, Child, Brother(V17.6, Z82.5) Status:Active Primary malignant neoplasm o f colon: Mother Status:Active Primary malignant neoplasm o f lung: Sister Status:Active Primary malignant neoplasm o f female breast: Sister Status:Active Family history of alcoholism : Father(V17.0, Z81.1) Status:Active Family history of emphysema: Father(V17.6, Z82.5) Status:Active Family history of myocardial infarction: Father(V17.3, Z82.49) Status:Active Unknown Family Member Name Dates Details : Mother, Father, Br other Status:Active Family history of chronic ob structive pulmonary disease: Mother, Father, Child, Brother(V17.6, Z82.5) Status:Active Primary malignant neoplasm o f colon: Mother Status:Active Primary malignant neoplasm o f lung: Sister Status:Active Primary malignant neoplasm o f female breast: Sister Status:Active Family history of alcoholism : Father(V17.0, Z81.1) Status:Active Family history of emphysema: Father(V17.6, Z82.5) Status:Active Family history of myocardial infarction: Father(V17.3, Z82.49) Status:Active Unknown Family Member Name Dates Details : Mother, Father, Br other Status:Active Family history of chronic ob structive pulmonary disease: Mother, Father, Child, Brother(V17.6, Z82.5) Status:Active Primary malignant neoplasm o f colon: Mother Status:Active Primary malignant neoplasm o f lung: Sister Status:Active Primary malignant neoplasm o f female breast: Sister Status:Active Family history of alcoholism : Father(V17.0, Z81.1) Status:Active Family history of emphysema: Father(V17.6, Z82.5) Status:Active Family history of myocardial infarction: Father(V17.3, Z82.49) Status:Active Unknown Family Member Name Dates Details : Mother, Father, Br other Status:Active Family history of chronic ob structive pulmonary disease: Mother, Father, Child, Brother(V17.6, Z82.5) Status:Active Primary malignant neoplasm o f colon: Mother Status:Active Primary malignant neoplasm o f lung: Sister Status:Active Primary malignant neoplasm o f female breast: Sister Status:Active Family history of alcoholism : Father(V17.0, Z81.1) Status:Active Family history of emphysema: Father(V17.6, Z82.5) Status:Active Family history of myocardial infarction: Father(V17.3, Z82.49) Status:Active Unknown Family Member Name Dates Details : Mother, Father, Br other Status:Active Family history of chronic ob structive pulmonary disease: Mother, Father, Child, Brother(V17.6, Z82.5) Status:Active Primary malignant neoplasm o f colon: Mother Status:Active Primary malignant neoplasm o f lung: Sister Status:Active Primary malignant neoplasm o f female breast: Sister Status:Active Family history of alcoholism : Father(V17.0, Z81.1) Status:Active Family history of emphysema: Father(V17.6, Z82.5) Status:Active Family history of myocardial infarction: Father(V17.3, Z82.49) Status:Active Unknown Family Member Name Dates Details : Mother, Father, Br other Status:Active Family history of chronic ob structive pulmonary disease: Mother, Father, Child, Brother(V17.6, Z82.5) Status:Active Primary malignant neoplasm o f colon: Mother Status:Active Primary malignant neoplasm o f lung: Sister Status:Active Primary malignant neoplasm o f female breast: Sister Status:Active Family history of alcoholism : Father(V17.0, Z81.1) Status:Active Family history of emphysema: Father(V17.6, Z82.5) Status:Active Family history of myocardial infarction: Father(V17.3, Z82.49) Status:Active Unknown Family Member Name Dates Details : Mother, Father, Br other Status:Active Family history of chronic ob structive pulmonary disease: Mother, Father, Child, Brother(V17.6, Z82.5) Status:Active Primary malignant neoplasm o f colon: Mother Status:Active Primary malignant neoplasm o f lung: Sister Status:Active Primary malignant neoplasm o f female breast: Sister Status:Active Family history of alcoholism : Father(V17.0, Z81.1) Status:Active Family history of emphysema: Father(V17.6, Z82.5) Status:Active Family history of myocardial infarction: Father(V17.3, Z82.49) Status:Active Unknown Family Member Name Dates Details : Mother, Father, Br other Status:Active Family history of chronic ob structive pulmonary disease: Mother, Father, Child, Brother(V17.6, Z82.5) Status:Active Primary malignant neoplasm o f colon: Mother Status:Active Primary malignant neoplasm o f lung: Sister Status:Active Primary malignant neoplasm o f female breast: Sister Status:Active Family history of alcoholism : Father(V17.0, Z81.1) Status:Active Family history of emphysema: Father(V17.6, Z82.5) Status:Active Family history of myocardial infarction: Father(V17.3, Z82.49) Status:Active Unknown Family Member Name Dates Details Family history of myocardial infarction: Father(V17.3, Z82.49) Status:Active Family history of emphysema: Father(V17.6, Z82.5) Status:Active Family history of alcoholism : Father(V17.0, Z81.1) Status:Active Primary malignant neoplasm o f female breast: Sister Status:Active Primary malignant neoplasm o f lung: Sister Status:Active Primary malignant neoplasm o f colon: Mother Status:Active Family history of chronic ob structive pulmonary disease: Mother, Father, Child, Brother(V17.6, Z82.5) Status:Active : Mother, Father, Br other Status:Active Unknown Family Member Name Dates Details : Mother, Father, Br other Status:Active Family history of chronic ob structive pulmonary disease: Mother, Father, Child, Brother(V17.6, Z82.5) Status:Active Primary malignant neoplasm o f colon: Mother Status:Active Primary malignant neoplasm o f lung: Sister Status:Active Primary malignant neoplasm o f female breast: Sister Status:Active Family history of alcoholism : Father(V17.0, Z81.1) Status:Active Family history of emphysema: Father(V17.6, Z82.5) Status:Active Family history of myocardial infarction: Father(V17.3, Z82.49) Status:Active Unknown Family Member Name Dates Details : Mother, Father, Br other Status:Active Family history of chronic ob structive pulmonary disease: Mother, Father, Child, Brother(V17.6, Z82.5) Status:Active Primary malignant neoplasm o f colon: Mother Status:Active Primary malignant neoplasm o f lung: Sister Status:Active Primary malignant neoplasm o f female breast: Sister Status:Active Family history of alcoholism : Father(V17.0, Z81.1) Status:Active Family history of emphysema: Father(V17.6, Z82.5) Status:Active Family history of myocardial infarction: Father(V17.3, Z82.49) Status:Active Unknown Family Member Name Dates Details : Mother, Father, Br other Status:Active Family history of chronic ob structive pulmonary disease: Mother, Father, Child, Brother(V17.6, Z82.5) Status:Active Primary malignant neoplasm o f colon: Mother Status:Active Primary malignant neoplasm o f lung: Sister Status:Active Primary malignant neoplasm o f female breast: Sister Status:Active Family history of alcoholism : Father(V17.0, Z81.1) Status:Active Family history of emphysema: Father(V17.6, Z82.5) Status:Active Family history of myocardial infarction: Father(V17.3, Z82.49) Status:Active Unknown Family Member Name Dates Details : Mother, Father, Br other Status:Active Family history of chronic ob structive pulmonary disease: Mother, Father, Child, Brother(V17.6, Z82.5) Status:Active Primary malignant neoplasm o f colon: Mother Status:Active Primary malignant neoplasm o f lung: Sister Status:Active Primary malignant neoplasm o f female breast: Sister Status:Active Family history of alcoholism : Father(V17.0, Z81.1) Status:Active Family history of emphysema: Father(V17.6, Z82.5) Status:Active Family history of myocardial infarction: Father(V17.3, Z82.49) Status:Active Unknown Family Member Name Dates Details : Mother, Father, Br other Status:Active Family history of chronic ob structive pulmonary disease: Mother, Father, Child, Brother(V17.6, Z82.5) Status:Active Primary malignant neoplasm o f colon: Mother Status:Active Primary malignant neoplasm o f lung: Sister Status:Active Primary malignant neoplasm o f female breast: Sister Status:Active Family history of alcoholism : Father(V17.0, Z81.1) Status:Active Family history of emphysema: Father(V17.6, Z82.5) Status:Active Family history of myocardial infarction: Father(V17.3, Z82.49) Status:Active Unknown Family Member Name Dates Details : Mother, Father, Br other Status:Active Family history of chronic ob structive pulmonary disease: Mother, Father, Child, Brother(V17.6, Z82.5) Status:Active Primary malignant neoplasm o f colon: Mother Status:Active Primary malignant neoplasm o f lung: Sister Status:Active Primary malignant neoplasm o f female breast: Sister Status:Active Family history of alcoholism : Father(V17.0, Z81.1) Status:Active Family history of emphysema: Father(V17.6, Z82.5) Status:Active Family history of myocardial infarction: Father(V17.3, Z82.49) Status:Active Unknown Family Member Name Dates Details : Mother, Father, Br other Status:Active Family history of chronic ob structive pulmonary disease: Mother, Father, Child, Brother(V17.6, Z82.5) Status:Active Primary malignant neoplasm o f colon: Mother Status:Active Primary malignant neoplasm o f lung: Sister Status:Active Primary malignant neoplasm o f female breast: Sister Status:Active Family history of alcoholism : Father(V17.0, Z81.1) Status:Active Family history of emphysema: Father(V17.6, Z82.5) Status:Active Family history of myocardial infarction: Father(V17.3, Z82.49) Status:Active Unknown Family Member Name Dates Details : Mother, Father, Br other Status:Active Family history of chronic ob structive pulmonary disease: Mother, Father, Child, Brother(V17.6, Z82.5) Status:Active Primary malignant neoplasm o f colon: Mother Status:Active Primary malignant neoplasm o f lung: Sister Status:Active Primary malignant neoplasm o f female breast: Sister Status:Active Family history of alcoholism : Father(V17.0, Z81.1) Status:Active Family history of emphysema: Father(V17.6, Z82.5) Status:Active Family history of myocardial infarction: Father(V17.3, Z82.49) Status:Active Unknown Family Member Name Dates Details : Mother, Father, Br other Status:Active Family history of chronic ob structive pulmonary disease: Mother, Father, Child, Brother(V17.6, Z82.5) Status:Active Primary malignant neoplasm o f colon: Mother Status:Active Primary malignant neoplasm o f lung: Sister Status:Active Primary malignant neoplasm o f female breast: Sister Status:Active Family history of alcoholism : Father(V17.0, Z81.1) Status:Active Family history of emphysema: Father(V17.6, Z82.5) Status:Active Family history of myocardial infarction: Father(V17.3, Z82.49) Status:Active Unknown Family Member Name Dates Details : Mother, Father, Br other Status:Active Family history of chronic ob structive pulmonary disease: Mother, Father, Child, Brother(V17.6, Z82.5) Status:Active Primary malignant neoplasm o f colon: Mother Status:Active Primary malignant neoplasm o f lung: Sister Status:Active Primary malignant neoplasm o f female breast: Sister Status:Active Family history of alcoholism : Father(V17.0, Z81.1) Status:Active Family history of emphysema: Father(V17.6, Z82.5) Status:Active Family history of myocardial infarction: Father(V17.3, Z82.49) Status:Active Unknown Family Member Name Dates Details : Mother, Father, Br other Status:Active Family history of chronic ob structive pulmonary disease: Mother, Father, Child, Brother(V17.6, Z82.5) Status:Active Primary malignant neoplasm o f colon: Mother Status:Active Primary malignant neoplasm o f lung: Sister Status:Active Primary malignant neoplasm o f female breast: Sister Status:Active Family history of alcoholism : Father(V17.0, Z81.1) Status:Active Family history of emphysema: Father(V17.6, Z82.5) Status:Active Family history of myocardial infarction: Father(V17.3, Z82.49) Status:Active Unknown Family Member Name Dates Details : Mother, Father, Br other Status:Active Family history of chronic ob structive pulmonary disease: Mother, Father, Child, Brother(V17.6, Z82.5) Status:Active Primary malignant neoplasm o f colon: Mother Status:Active Primary malignant neoplasm o f lung: Sister Status:Active Primary malignant neoplasm o f female breast: Sister Status:Active Family history of alcoholism : Father(V17.0, Z81.1) Status:Active Family history of emphysema: Father(V17.6, Z82.5) Status:Active Family history of myocardial infarction: Father(V17.3, Z82.49) Status:Active Unknown Family Member Name Dates Details : Mother, Father, Br other Status:Active Family history of chronic ob structive pulmonary disease: Mother, Father, Child, Brother(V17.6, Z82.5) Status:Active Primary malignant neoplasm o f colon: Mother Status:Active Primary malignant neoplasm o f lung: Sister Status:Active Primary malignant neoplasm o f female breast: Sister Status:Active Family history of alcoholism : Father(V17.0, Z81.1) Status:Active Family history of emphysema: Father(V17.6, Z82.5) Status:Active Family history of myocardial infarction: Father(V17.3, Z82.49) Status:Active Unknown Family Member Name Dates Details : Mother, Father, Br other Status:Active Family history of chronic ob structive pulmonary disease: Mother, Father, Child, Brother(V17.6, Z82.5) Status:Active Primary malignant neoplasm o f colon: Mother Status:Active Primary malignant neoplasm o f lung: Sister Status:Active Primary malignant neoplasm o f female breast: Sister Status:Active Family history of alcoholism : Father(V17.0, Z81.1) Status:Active Family history of emphysema: Father(V17.6, Z82.5) Status:Active Family history of myocardial infarction: Father(V17.3, Z82.49) Status:Active Unknown Family Member Name Dates Details : Mother, Father, Br other Status:Active Family history of chronic ob structive pulmonary disease: Mother, Father, Child, Brother(V17.6, Z82.5) Status:Active Primary malignant neoplasm o f colon: Mother Status:Active Primary malignant neoplasm o f lung: Sister Status:Active Primary malignant neoplasm o f female breast: Sister Status:Active Family history of alcoholism : Father(V17.0, Z81.1) Status:Active Family history of emphysema: Father(V17.6, Z82.5) Status:Active Family history of myocardial infarction: Father(V17.3, Z82.49) Status:Active Unknown Family Member Name Dates Details : Mother, Father, Br other Status:Active Family history of chronic ob structive pulmonary disease: Mother, Father, Child, Brother(V17.6, Z82.5) Status:Active Primary malignant neoplasm o f colon: Mother Status:Active Primary malignant neoplasm o f lung: Sister Status:Active Primary malignant neoplasm o f female breast: Sister Status:Active Family history of alcoholism : Father(V17.0, Z81.1) Status:Active Family history of emphysema: Father(V17.6, Z82.5) Status:Active Family history of myocardial infarction: Father(V17.3, Z82.49) Status:Active Unknown Family Member Name Dates Details : Mother, Father, Br other Status:Active Family history of chronic ob structive pulmonary disease: Mother, Father, Child, Brother(V17.6, Z82.5) Status:Active Primary malignant neoplasm o f colon: Mother Status:Active Primary malignant neoplasm o f lung: Sister Status:Active Primary malignant neoplasm o f female breast: Sister Status:Active Family history of alcoholism : Father(V17.0, Z81.1) Status:Active Family history of emphysema: Father(V17.6, Z82.5) Status:Active Family history of myocardial infarction: Father(V17.3, Z82.49) Status:Active Unknown Family Member Name Dates Details : Mother, Father, Br other Status:Active Family history of chronic ob structive pulmonary disease: Mother, Father, Child, Brother(V17.6, Z82.5) Status:Active Primary malignant neoplasm o f colon: Mother Status:Active Primary malignant neoplasm o f lung: Sister Status:Active Primary malignant neoplasm o f female breast: Sister Status:Active Family history of alcoholism : Father(V17.0, Z81.1) Status:Active Family history of emphysema: Father(V17.6, Z82.5) Status:Active Family history of myocardial infarction: Father(V17.3, Z82.49) Status:Active Unknown Family Member Name Dates Details : Mother, Father, Br other Status:Active Family history of chronic ob structive pulmonary disease: Mother, Father, Child, Brother(V17.6, Z82.5) Status:Active Primary malignant neoplasm o f colon: Mother Status:Active Primary malignant neoplasm o f lung: Sister Status:Active Primary malignant neoplasm o f female breast: Sister Status:Active Family history of alcoholism : Father(V17.0, Z81.1) Status:Active Family history of emphysema: Father(V17.6, Z82.5) Status:Active Family history of myocardial infarction: Father(V17.3, Z82.49) Status:Active Unknown Family Member Name Dates Details : Mother, Father, Br other Status:Active Family history of chronic ob structive pulmonary disease: Mother, Father, Child, Brother(V17.6, Z82.5) Status:Active Primary malignant neoplasm o f colon: Mother Status:Active Primary malignant neoplasm o f lung: Sister Status:Active Primary malignant neoplasm o f female breast: Sister Status:Active Family history of alcoholism : Father(V17.0, Z81.1) Status:Active Family history of emphysema: Father(V17.6, Z82.5) Status:Active Family history of myocardial infarction: Father(V17.3, Z82.49) Status:Active Unknown Family Member Name Dates Details : Mother, Father, Br other Status:Active Family history of chronic ob structive pulmonary disease: Mother, Father, Child, Brother(V17.6, Z82.5) Status:Active Primary malignant neoplasm o f colon: Mother Status:Active Primary malignant neoplasm o f lung: Sister Status:Active Primary malignant neoplasm o f female breast: Sister Status:Active Family history of alcoholism : Father(V17.0, Z81.1) Status:Active Family history of emphysema: Father(V17.6, Z82.5) Status:Active Family history of myocardial infarction: Father(V17.3, Z82.49) Status:Active Unknown Family Member Name Dates Details : Mother, Father, Br other Status:Active Family history of chronic ob structive pulmonary disease: Mother, Father, Child, Brother(V17.6, Z82.5) Status:Active Primary malignant neoplasm o f colon: Mother Status:Active Primary malignant neoplasm o f lung: Sister Status:Active Primary malignant neoplasm o f female breast: Sister Status:Active Family history of alcoholism : Father(V17.0, Z81.1) Status:Active Family history of emphysema: Father(V17.6, Z82.5) Status:Active Family history of myocardial infarction: Father(V17.3, Z82.49) Status:Active Unknown Family Member Name Dates Details : Mother, Father, Br other Status:Active Family history of chronic ob structive pulmonary disease: Mother, Father, Child, Brother(V17.6, Z82.5) Status:Active Primary malignant neoplasm o f colon: Mother Status:Active Primary malignant neoplasm o f lung: Sister Status:Active Primary malignant neoplasm o f female breast: Sister Status:Active Family history of alcoholism : Father(V17.0, Z81.1) Status:Active Family history of emphysema: Father(V17.6, Z82.5) Status:Active Family history of myocardial infarction: Father(V17.3, Z82.49) Status:Active Relationship Condition Age at Onset Recorded Date/T calin mother Chronic obstructive pulmonary disease Unk nown Malignant neoplasm of colon Unknown father Chronic obstructive pulmonary disease Unk nown Myocardial infarction Unknown Alcoholism Unknown Pulmonary emphysema Unknown sister Malignant neoplasm of breast Unknown Malignant neoplasm Unknown brother Chronic obstructive pulmonary disease Unk nown Unknown Family Member Name Dates Details : Mother, Father, Br other Status:Active Family history of chronic ob structive pulmonary disease: Mother, Father, Child, Brother(V17.6, Z82.5) Status:Active Primary malignant neoplasm o f colon: Mother Status:Active Primary malignant neoplasm o f lung: Sister Status:Active Primary malignant neoplasm o f female breast: Sister Status:Active Family history of alcoholism : Father(V17.0, Z81.1) Status:Active Family history of emphysema: Father(V17.6, Z82.5) Status:Active Family history of myocardial infarction: Father(V17.3, Z82.49) Status:Active Relationship Condition Age at Onset Recorded Date/T calin mother Chronic obstructive pulmonary disease Unk nown Malignant neoplasm of colon Unknown father Chronic obstructive pulmonary disease Unk nown Myocardial infarction Unknown Alcoholism Unknown Pulmonary emphysema Unknown sister Malignant neoplasm of breast Unknown Malignant neoplasm Unknown brother Chronic obstructive pulmonary disease Unk nown aunt Diabetes mellitus Unknown Unknown Family Member Name Dates Details Family history of myocardial infarction: Father(V17.3, Z82.49) Status:Active Family history of emphysema: Father(V17.6, Z82.5) Status:Active Family history of alcoholism : Father(V17.0, Z81.1) Status:Active Primary malignant neoplasm o f female breast: Sister Status:Active Primary malignant neoplasm o f lung: Sister Status:Active Primary malignant neoplasm o f colon: Mother Status:Active Family history of chronic ob structive pulmonary disease: Mother, Father, Child, Brother(V17.6, Z82.5) Status:Active : Mother, Father, Br other Status:Active Unknown Family Member Name Dates Details : Mother, Father, Br other Status:Active Family history of chronic ob structive pulmonary disease: Mother, Father, Child, Brother(V17.6, Z82.5) Status:Active Primary malignant neoplasm o f colon: Mother Status:Active Primary malignant neoplasm o f lung: Sister Status:Active Primary malignant neoplasm o f female breast: Sister Status:Active Family history of alcoholism : Father(V17.0, Z81.1) Status:Active Family history of emphysema: Father(V17.6, Z82.5) Status:Active Family history of myocardial infarction: Father(V17.3, Z82.49) Status:Active Unknown Family Member Name Dates Details : Mother, Father, Br other Status:Active Family history of chronic ob structive pulmonary disease: Mother, Father, Child, Brother(V17.6, Z82.5) Status:Active Primary malignant neoplasm o f colon: Mother Status:Active Primary malignant neoplasm o f lung: Sister Status:Active Primary malignant neoplasm o f female breast: Sister Status:Active Family history of alcoholism : Father(V17.0, Z81.1) Status:Active Family history of emphysema: Father(V17.6, Z82.5) Status:Active Family history of myocardial infarction: Father(V17.3, Z82.49) Status:Active Unknown Family Member Name Dates Details : Mother, Father, Br other Status:Active Family history of chronic ob structive pulmonary disease: Mother, Father, Child, Brother(V17.6, Z82.5) Status:Active Primary malignant neoplasm o f colon: Mother Status:Active Primary malignant neoplasm o f lung: Sister Status:Active Primary malignant neoplasm o f female breast: Sister Status:Active Family history of alcoholism : Father(V17.0, Z81.1) Status:Active Family history of emphysema: Father(V17.6, Z82.5) Status:Active Family history of myocardial infarction: Father(V17.3, Z82.49) Status:Active Unknown Family Member Name Dates Details : Mother, Father, Br other Status:Active Family history of chronic ob structive pulmonary disease: Mother, Father, Child, Brother(V17.6, Z82.5) Status:Active Primary malignant neoplasm o f colon: Mother Status:Active Primary malignant neoplasm o f lung: Sister Status:Active Primary malignant neoplasm o f female breast: Sister Status:Active Family history of alcoholism : Father(V17.0, Z81.1) Status:Active Family history of emphysema: Father(V17.6, Z82.5) Status:Active Family history of myocardial infarction: Father(V17.3, Z82.49) Status:Active Advance Directives No Advanced Directives Records FoundDocuments on File Type Date Recorded 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 Expl anation Advance Directives and Living Will Advance Directive Response Recorded Date/ Time Living Will Yes March 20, 2022 2:05am Power of Fitness Professional Yes March 20 2:05am Advance Directive Response Recorded Date/ Time Name of Medical Power of Fitness Professional vikki butler March 20, 2022 2:05am Living Will Yes March 20, 2022 2:05am Power of Fitness Professional Yes March 20 2:05am Advance Directive Response Recorded Date/ Time Name of Medical Power of Fitness Professional vikki butler March 20, 2022 2:05am Advance Directives on File Yes April 23, 2022 10:26am Name of Medical Power of Fitness Professional Vikki Butler-h usband April 23, 2022 10:26am Advance Directives Yes April 23 10:26am Living Will Yes April 23, 2022 10:26am Power of Fitness Professional Yes April 23 10:26am Advance Directive Response Recorded Date/ Time Name of Medical Power of Fitness Professional vikki butler March 20, 2022 2:05am Advance Directives on File Yes April 23, 2022 10:26am Name of Medical Power of Fitness Professional Vikki Butler-h usband April 23, 2022 10:26am Name of Medical Power of Fitness Professional April 23, 2022 2:03pm Advance Directives Yes April 23 10:26am Living Will Yes April 23, 2022 2:03pm Power of Fitness Professional Yes April 23 2:03pm Advance Directive Response Recorded Date/ Time Name of Medical Power of Fitness Professional vikki butler March 20, 2022 2:05am Advance Directives on File Yes April 23, 2022 10:26am Name of Medical Power of Fitness Professional Vikki Butler-h usband April 23, 2022 10:26am Name of Medical Power of Fitness Professional April 23, 2022 2:03pm Name of Medical Power of Fitness Professional EVELINAcosta Vikki calvert May 17, 2022 2:32pm Advance Directives Yes April 23 10:26am Living Will Yes May 17, 2022 2:32pm Power of Fitness Professional Yes May 17 2:32pm Advance Directive Response Recorded Date/ Time Name of Medical Power of Fitness Professional JOYCE calvert May 17, 2022 1:32pm Advance Directives Yes April 23 9:26am Living Will Yes May 17, 2022 1:32pm Power of Fitness Professional Yes May 17 1:32pm Advance Directive Response Recorded Date/ Time Advance Directives Yes April 23 10:26am Living Will Yes May 17, 2022 2:32pm Power of Fitness Professional Yes May 17 2:32pm Advance Directive Response Recorded Date/ Time Name of Medical Power of Fitness Professional POAcosta March 24, 2023 3:03pm Advance Directives Yes April 23 10:26am Living Will Yes March 24, 2023 3:03pm Power of Fitness Professional Yes March 24 3:03pm Advance Directive Response Recorded Date/ Time Advance Directives Yes April 23 10:26am Living Will Yes March 24, 2023 3:03pm Power of Fitness Professional Yes March 24 3:03pm Advance Directive Response Recorded Date/ Time Living Will No January 01, 2025 5:47pm Do you have a Healthcare Power of Fitness Professional? No January 01, 2025 5:47pm Advance Directives Yes April 23 10:26am Advance Directive Response Recorded Date/ Time Living Will Yes January 01, 2025 10:30pm Do you have a Healthcare Pow er of Fitness Professional? Yes January 01, 2025 10:30pm Name of Medical Power of Fitness Professional Vikki Butler, January 01, 2025 10:30pm Advance Directives Yes April 23 10:26am Chief Complaint FOLLOW UP FROM ECHO, STRESS TEST AND CXR. PT C/O HAND AND FEET GOING NUMB* Patient complains of lower back pain that radiates down her bilateral lower legs to her feet. Patient also complains of neck pain that radiates down her bilateral arms to her hands. Patient states she fell on her left thumb about 3 weeks ago and has had pain in it since. Patient also complains of left foot pain. Patient rates all of her pain a 9/10 today. Patient states her lower back is most bothersome at this time. She states she is really bothered by it when standing long periods like while cooking. Patient states she no longer gets relief from her low back pain when she sits down. * BP screen 130/79 MEDICARE WELLNESS WITH LABS* A telephone visit (audio only) between the patient (at the originating site) and the provider (at the distant site) was utilized to provide this telehealth service. * Verbal consent was requested and obtained from TISH BUTLER on this date, 08/11/2021 03:15 PM , for a telehealth visit. * CO PRODUCTIVE COUGH SINCE TUESDAY SORE THROAT ON/OFF MEDICARE WELLNESS WITH LABS1 WK F/U WITH CXR STILL HAS COUGH AND CONGESTION WITH LOW GLUCOSE1 WK F/U WITH CXR STILL HAS COUGH AND CONGESTION WITH LOW GLUCOSE* FUV for MRI results today having pain in bilat lower back radiating into bilat gluteal and down theback of her legs stopping at the ankles, intermittently into rt foot.rates pain 8/10 now and 10/10 with ADLs. describes the pain as a deep ache with sitting and sharp stabbing and like a marcela being shoved u her back when she is sitting up in bed. Baclofen is not helping her back much with he back but is helping the stinging in her feet. * Screenings Depression, Smoking negative, BMI 40 N/A due to age 3 MO FU WITH LABS; NO CONCERNS TODAY4 MO FU WITH LABS; NO CONCERNS TODAY4 MO FU WITH LABS; NO CONCERNS TODAYPatient following up from Bilat L5-S1 RFA that she had on 12/07/21. Patient reports she's had 0% relief. Patient states she's has pain in her lower back and it's starting to radiate down her left upper leg. Patient rates her pain a 9/10. She feels like nothing is helping. She walked in today using a rollator walker.* FUV Amb to room 3 with a rollator walker reports having pain in her rt shoulder throbbing, bilat lower back sharp burning and Lt foot/ankle sharp rates 7/10. She is sparingly taking the percocet for pain but is in so much pain it is hard to stand and walk. She would like a RF on GPN send to [facility]. * MMA & ORT done score =5 1 WEEK F/U - COUGH HAD RESOLVED UP UNTIL 3 DAYS AGO WHEN COUGH RETURNED. C/O CLOUDY URINE + BLADDERDISCOMFORT FOR THE LAST COUPLE DAYS.4 MONTH F/U LABS AND F/U ER VISIT ([facility]) 03/20/2022. DISCUSS TEST STRIPS* Patient following up from Bilat SIJ injection that she had on 03/12/22. Patient reports 0% relief. P atient states she still has pain in her middle and left lower back and radiating down her leg to her ankle. Patient states she has bilateral back pain just above her lower back as well. Patient ratesthis pain a 7/10. Patient also complains of right shoulder pain. She reports 80% relief but states now it is starting to tighten up again. Patient rates this pain a 4/10. Patient states she has trouble get comfortable because she moves to comfort her lower back and her upper back starts to hurt. * Patient is having a heart cath next Tuesday due to recent chest pain. 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 CARE, [facility] PT, ROS & CONSENT ONLY CP, CORONARY CALCIFICATION, HTN, DM, HLD, OBESITY FALL GASTRO-ESOPHAGEAL REFLUX DISEASE/DYSPHAGIA Dysphagia, unspecified BACK PAIN. 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 Essential tremor Chronic respiratory failure with hypoxia, on home O2 therapy COPD (chronic obstructive pulmonary disease) Essential hypertension Paroxysmal atrial fibrillation Moderate major depression Immunization due Establishing care with new doctor, encounter for Dysphagia Controlled type 2 diabetes mellitus GERD (gastroesophageal reflux disease) Dysphagia Regurgitation and rechewing of food Prepyloric ulcer Chronic respiratory failure with hypoxia, on home O2 therapy Encounter for screening for COVID-19 Acute exacerbation of chronic obstructive pulmonary disease (COPD) Chief Complaint chest pain Amb Documentation Chest pain & Atrial fibrillation E-ORDER REJECTED ITEMS CLERK, EST. CARE, [facility] PT, ROS & CONSENT ONLY CP, CORONARY CALCIFICATION, HTN, DM, HLD, OBESITY FALL GASTRO-ESOPHAGEAL REFLUX DISEASE/DYSPHAGIA Dysphagia, unspecified UPPER SCOPE 05/19 COPD CONCERNS 6 W F/U UPPER SCOPE FALL BACK PAIN. 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 Essential tremor Chronic respiratory failure with hypoxia, on home O2 therapy COPD (chronic obstructive pulmonary disease) Essential hypertension Paroxysmal atrial fibrillation Moderate major depression Immunization due Establishing care with new doctor, encounter for Dysphagia Controlled type 2 diabetes mellitus GERD (gastroesophageal reflux disease) Dysphagia Regurgitation and rechewing of food Prepyloric ulcer Chronic respiratory failure with hypoxia, on home O2 therapy Encounter for screening for COVID-19 Acute exacerbation of chronic obstructive pulmonary disease (COPD) Prepyloric ulcer Chief Complaint UPPER SCOPE 05/19 COPD CONCERNS 6 W F/U UPPER SCOPE FALL BACK PAIN. 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 Essential tremor Chronic respiratory failure with hypoxia, on home O2 therapy COPD (chronic obstructive pulmonary disease) Essential hypertension Paroxysmal atrial fibrillation Moderate major depression Acute conjunctivitis of left eye Allergies Controlled type 2 diabetes mellitus Nasal sore GERD (gastroesophageal reflux disease) Chief Complaint FOLLOW UP/REFILLS EORDERS CONGESTION Reason for Visit Essential tremor Chronic respiratory failure with hypoxia, on home O2 therapy COPD (chronic obstructive pulmonary disease) Essential hypertension Paroxysmal atrial fibrillation Moderate major depression Acute conjunctivitis of left eye Allergies Controlled type 2 diabetes mellitus Nasal sore GERD (gastroesophageal reflux disease) Acute exacerbation of chronic obstructive pulmonary disease (COPD) Chief Complaint FOLLOW UP/REFILLS EORDERS CONGESTION sob Reason for Visit Essential tremor Chronic respiratory failure with hypoxia, on home O2 therapy COPD (chronic obstructive pulmonary disease) Essential hypertension Paroxysmal atrial fibrillation Moderate major depression Acute conjunctivitis of left eye Allergies Controlled type 2 diabetes mellitus Nasal sore GERD (gastroesophageal reflux disease) Acute exacerbation of chronic obstructive pulmonary disease (COPD) Chief Complaint 6 M FU 6 M FU E-ORDER AND PAPER ORDER [address] Reason for Visit SELENA (obstructive sle ep apnea) Essential hypertension Hyperlipidemia Paroxysmal atrial fibrillation 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 Chronic respiratory failure with hypoxia, on home O2 therapy COPD (chronic obstructive pulmonary disease) Essential hypertension Paroxysmal atrial fibrillation Moderate major depression Allergies Controlled type 2 diabetes mellitus Screening for breast cancer Chief Complaint 6 M FU 6 M FU E-ORDER AND PAPER ORDER [address] SCREENING Reason for Visit SELENA (obstructive sle ep apnea) Essential hypertension Hyperlipidemia Paroxysmal atrial fibrillation 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 Chronic respiratory failure with hypoxia, on home O2 therapy COPD (chronic obstructive pulmonary disease) Essential hypertension Paroxysmal atrial fibrillation Moderate major depression Allergies Controlled type 2 diabetes mellitus Screening for breast cancer Chief Complaint Admit Date ACUTE ON CHRONIC HYPOXI RESPIRATORY FAIL URE, January 01, 2025 9:27pm Reason for Visit Admit Date Acute bacterial bronchitis January 01 025 9:27pm Generalized weakness January 01, 2025 9: 27pm Influenza A January 01, 2025 9:2 7pm Malaise January 01, 2025 9:2 7pm Myalgia January 01, 2025 9:2 7pm Obesity (BMI 30-39.9) January 01, 2025 9 :27pm SELENA (obstructive sleep apnea) December 9:27pm Respiratory insufficiency January 01 9:27pm Acute on chronic hypoxic respiratory brigitte lure January 01, 2025 9:27pm Chronic respiratory failure with hypoxia , on home O2 therapy January 01, 2025 9:27pm COPD exacerbation January 01, 2025 9:2 7pm Chief Complaint Admit Date INFLUENZA A WITH AE COPD January 01 9:51pm INFLUENZA A WITH AE COPD January 02 1:36pm Reason for Visit Admit Date Acute bacterial bronchitis January 01 9:51pm Generalized weakness January 01, 2025 9: 51pm Influenza A January 01, 2025 9:5 1pm Malaise January 01, 2025 9:5 1pm Myalgia January 01, 2025 9:5 1pm Obesity (BMI 30-39.9) January 01, 2025 9 :51pm SELENA (obstructive sleep apnea) December 9:51pm Respiratory insufficiency January 01 9:51pm Acute on chronic hypoxic respiratory brigitte lure January 01, 2025 9:51pm Chronic respiratory failure with hypoxia , on home O2 therapy January 01, 2025 9:51pm COPD exacerbation January 01, 2025 9:5 1pm Additional Source Comments Reason for Visit (unrecogniz ed section and content) Reason Comments Follow-up Suture / Staple Removal Reason Comments Follow-up Reason Comments Spirometry Specialty Diagnoses / Procedures Referred By Conttushar t Referred To Contact [facility] Diagnoses Chronic obstructive pulmonary disease, unspecified COPD type (HCC) Procedures SPIROMETRY WITH DILATOR IF OBSTRUCTED BRNCDILAT RSPSE SPMTRY PRE&POST-BRNCDILAT ADMN Tara Khoury MD [address] [place] [address] [address] Referral ID Status Reason Start Date Expiration Date V isits Requested Visits Authorized [id number] Closed Auto-Generated Referral Patient Cleared - INN Insurance Found 05/14/2022 06/13/2023 1 1 Reason Comments COPD Reason Comments Established Patient 3 month follow up Reason Comments Patient Question Low BP Reason Comments Established Patient Steroid follow up Reason Comments COPD Reason Comments Refill Request Reason Comments Established Patient COPD Reason Comments Established Patient 6 month follow up CO PD Specialty Diagnoses / Procedures Referred By Contac t Referred To Contact [facility] Diagnoses Asthma-COPD overlap syndrome (HCC) Procedures SPIROMETRY WITH DILATOR IF OBSTRUCTED BRNCDILAT RSPSE SPMTRY PRE&POST-BRNCDILAT ADMN Tara Khoury MD [address] [place] [address] [place] [phone] Referral ID Status Reason Start Date Expiration Date V isits Requested Visits Authorized [id number] Closed Auto-Generate d Referral 12/09/2023 01/07/2025 1 1 Specialty Diagnoses / Procedures Referred By Contac t Referred To Contact [facility] Diagnoses Asthma-COPD overlap syndrome (HCC) Procedures NITRIC OXIDE, EXHALED NITRIC OXIDE GAS DETERMINATION Tara Khoury MD [address] [place] [address] [address] Referral ID Status Reason Start Date Expiration Date V isits Requested Visits Authorized [id number] Closed Auto-Generate d Referral 12/09/2023 01/07/2025 1 1 Reason Comments Established Patient Asthma-COPD overlap Specialty Diagnoses / Procedures Referred By Contac t Referred To Contact Pulmonary and Critical Care Medicine / PULMONARY MEDICINE Diagnoses Asthma-COPD overlap syndrome (HCC) f/u Procedures OFFICE/OUTPATIENT ESTABLISHED HIGH MDM 40 MIN RI EST COPD Tara Khoury MD [address] [place] [address] Tara Khoury MD [address] [place] [address] Referral ID Status Reason Start Date Expiration Date V isits Requested Visits Authorized [id number] Authorized 06/13/2024 10/09/2024 99 99 Reason Comments Orders Reason Comments Established Patient Asthma COPD Specialty Diagnoses / Procedures Referred By Contac t Referred To Contact Pulmonary and Critical Care Medicine / PULMONARY MEDICINE Diagnoses Encounter for follow-up examination after completed treatment for conditions other than malignant neoplasm 6 month follow up Procedures OFFICE/OUTPATIENT ESTABLISHED HIGH MDM 40 MIN RI EST COPD Mariola Magdaleno MD [address] [place] [address] Phone: tel: fax: Tara Khoury MD [address] [place] [address] Phone: tel: fax: Referral ID Status Reason Start Date Expiration Date Visits Re quested Visits Authorized [id number] Closed 11/29/2024 10/09/2025 1 1 INFORMATION SOURCE (unrecogn ized section and content) DATE CREATED AUTHOR 10/30/2018 [facility] DATE CREATED AUTHOR AUTHOR'S ORGANIZ ATION 07/13/2019 [facility] DATE CREATED AUTHOR AUTHOR'S ORGANIZ ATION 03/31/2022 [facility] DATE CREATED AUTHOR AUTHOR'S ORGANIZ ATION 04/15/2022 [facility] DATE CREATED AUTHOR AUTHOR'S ORGANIZ ATION 01/14/2023 [facility] DATE CREATED AUTHOR AUTHOR'S ORGANIZ ATION 12/18/2024 [facility] DATE CREATED AUTHOR AUTHOR'S ORGANIZ ATION 02/06/2025 [facility] Goals (unrecognized section and content) Goals may be documented in a n alternate sectionGoals may be documented in an alternate sectionGoals may be documented in an alternate sectionGoals may be documented in an alternate sectionGoals may be documented in an alternate sectionGoals may be documented in an alternate sectionGoals may be documented in an alternate sectionGoals may be documented in an alternate sectionGoals may be documented in an alternate sectionGoals may be documented in an alternate sectionGoals may be documented in an alternate sectionGoals may be documented in an alternate section Source Comments (unrecognize d section and content) In the event this informatio n is protected by the Federal Confidentiality of Alcohol and Drug Abuse Patient Records regulations: The Federal rules restrict any use of the information to criminally investigate or prosecute any alcohol or drug abuse patient.[facility] Center[facility] the event this information is protected by the Federal Confidentiality of Alcohol and Drug Abuse Patient Records regulations: The Federal rules restrict any use of the information to criminally investigate or prosecute any alcohol or drug abuse patient.[facility] Center[facility] the event this information is protected by the Federal Confidentiality of Alcohol and Drug Abuse Patient Records regulations: The Federal rules restrict any use of the information to criminally investigate or prosecute any alcohol or drug abuse patient.[facility] CenterIn the event this information is protected by the Federal Confidentiality of Alcohol and Drug Abuse Patient Records regulations: The Federal rules restrict any use of the information to criminally investigate or prosecute any alcohol or drug abuse patient.[facility] CenterIn the event this information is protected by the Federal Confidentiality of Alcohol and Drug Abuse Patient Records regulations: The Federal rules restrict any use of the information to criminally investigate or prosecute any alcohol or drug abuse patient.[facility] Center[facility] the event this information is protected by the Federal Confidentiality of Alcohol and Drug Abuse Patient Records regulations: The Federal rules restrict any use of the information to criminally investigate or prosecute any alcohol or drug abuse patient.[facility] CenterIn the event this information is protected by the Federal Confidentiality of Alcohol and Drug Abuse Patient Records regulations: The Federal rules restrict any use of the information to criminally investigate or prosecute any alcohol or drug abuse patient.[facility] CenterIn the event this information is protected by the Federal Confidentiality of Alcohol and Drug Abuse Patient Records regulations: The Federal rules restrict any use of the information to criminally investigate or prosecute any alcohol or drug abuse patient.[facility] CenterIn the event this information is protected by the Federal Confidentiality of Alcohol and Drug Abuse Patient Records regulations: The Federal rules restrict any use of the information to criminally investigate or prosecute any alcohol or drug abuse patient.[facility] CenterIn the event this information is protected by the Federal Confidentiality of Alcohol and Drug Abuse Patient Records regulations: The Federal rules restrict any use of the information to criminally investigate or prosecute any alcohol or drug abuse patient.[facility] CenterIn the event this information is protected by the Federal Confidentiality of Alcohol and Drug Abuse Patient Records regulations: The Federal rules restrict any use of the information to criminally investigate or prosecute any alcohol or drug abuse patient.[facility] CenterIn the event this information is protected by the Federal Confidentiality of Alcohol and Drug Abuse Patient Records regulations: The Federal rules restrict any use of the information to criminally investigate or prosecute any alcohol or drug abuse patient.[facility] CenterIn the event this information is protected by the Federal Confidentiality of Alcohol and Drug Abuse Patient Records regulations: The Federal rules restrict any use of the information to criminally investigate or prosecute any alcohol or drug abuse patient.[facility] CenterIn the event this information is protected by the Federal Confidentiality of Alcohol and Drug Abuse Patient Records regulations: The Federal rules restrict any use of the information to criminally investigate or prosecute any alcohol or drug abuse patient.[facility] CenterIn the event this information is protected by the Federal Confidentiality of Alcohol and Drug Abuse Patient Records regulations: The Federal rules restrict any use of the information to criminally investigate or prosecute any alcohol or drug abuse patient.[facility] CenterIn the event this information is protected by the Federal Confidentiality of Alcohol and Drug Abuse Patient Records regulations: The Federal rules restrict any use of the information to criminally investigate or prosecute any alcohol or drug abuse patient.[facility] Care Teams (unrecognized sec tion and content) Team Status: Active Member Role Status Dates Dr. Mariola Magdaleno MD Primary Care Provider Active Team Status: Inactive Member Role Status Dates Dr. Mariola Magdaleno MD Primary Care Provider Active Start: January 01, 2025 End: January 02, 2025 Dr. Brent Rico DO Emergency Provider Active Start: January 01, 2025 End: January 02, 2025 Dr. Sunil Muir DO Admit Provider Active Start: January 01, 2025 End: January 02, 2025 Dr. Sunil Muir DO Other Provider Active Start: January 01, 2025 End: January 02, 2025 Dr. Tish Stokes DO Attending Provider Active S tart: January 01, 2025 End: January 02, 2025 Team Status: Active Member Role Status Dates Dr. Mariola Magdaleno MD Primary Care Provider Active Start: January 02, 2025 Dr. Brent Rico DO Emergency Provider Active Start: January 02, 2025 Dr. Sunil Muir DO Admit Provider Active Start: January 02, 2025 Dr. Sunil Muir DO Other Provider Active Start: January 02, 2025 Dr. Tish Stoeks DO Attending Provider Active S tart: January 02, 2025 Dr. Tish Stokes DO Other Provider Active Start : January 02, 2025 Gill Box Tender Relationship Specialty Start Date End Date Pao Magdaleno MD [address] [place], [place] [id number] PCP - General Internal Medicine 05/14/22 Gill Box Tender Relationship Specialty Start Date End Date Pao Magdaleno MD [address] [place], [place] [id number] PCP - General Internal Medicine 05/14/22 Gill Box Tender Relationship Specialty Start Date End Date Mariola Magdaleno MD PCP - General Internal Medicine 05/14/22 Team Status: Active Member Role Status Dates Dr. Gregg Miller MD Family Provider Active Dr. Mariola Magdaleno MD Primary Care Provider Active Team Status: Inactive Member Role Status Dates Dr. Gregg Miller MD Referring Provider Active Shakira Christianson REJECTED ITEMS CLERK, REJECTED ITEMS CLERK-C Attending Provider Active Dr. Mariola Magdaleno MD Primary Care Provider Active Team Status: Inactive Member Role Status Dates Dr. Mariola Magdaleno MD Primary Care Provider, Referri ng Provider Active Dr. Kermit Hicks DO Attending Provider Active Team Status: Inactive Member Role Status Dates Dr. Mariola Magdaleno MD Primary Care Pro vider, Attending Provider, Referring Provider Active Team Status: Active Member Role Status Dates Dr. Mariola Magdaleno MD Primary Care Provider Active Shakira Christianson REJECTED ITEMS CLERK, REJECTED ITEMS CLERK-C Attending Provider Active Team Status: Inactive Member Role Status Dates Dr. Mariola Magdaleno MD Primary Care Provider Active Dr. Estela Marie MD Attending Provider, Referring Pr ovider Active Team Status: Inactive Member Role Status Dates Dr. Mariola Magdaleno MD Primary Care Provider Active Dr. Marquez Yu MD Emergency Provider Active Gill Box Tender Relationship Specialty Start Date End Date Mariola Magdaleno MD PCP - General Internal Medicine 05/14/22 Gill Box Tender Relationship Specialty Start Date End Date Mariola Magdaleno MD PCP - General Internal Medicine 05/14/22 Gill Box Tender Relationship Specialty Start Date End Date Mariola Magdaleno MD PCP - General Internal Medicine 05/14/22 Gill Box Tender Relationship Specialty Start Date End Date Mariola Magdaleno MD PCP - General Internal Medicine 05/14/22 Gill Box Tender Relationship Specialty Start Date End Date Mariola Magdaleno MD PCP - General Internal Medicine 05/14/22 Gill Box Tender Relationship Specialty Start Date End Date Mariola Magdaleno MD PCP - General Internal Medicine 05/14/22 Gill Box Tender Relationship Specialty Start Date End Date Mariola Magdaleno MD PCP - General Internal Medicine 05/14/22 Team Status: Inactive Member Role Status Dates Dr. Mariola Magdaleno MD Primary Care Provider, Referri ng Provider Active Shakira Christianson REJECTED ITEMS CLERK, REJECTED ITEMS CLERK-C Attending Provider Active Team Status: Inactive Member Role Status Dates Dr. Mariola Magdaleno MD Primary Care Provider, Other P rovider Active Dr. Estela Marie MD Attending Provider, Referring Pr ovider Active Gill Box Tender Relationship Specialty Start Date End Date Mariola Magdaleno MD PCP - General Internal Medicine 05/14/22 Gill Box Tender Relationship Specialty Start Date End Date Mariola Magdaleno MD PCP - General Internal Medicine 05/14/22 Team Status: Active Member Role Status Dates Dr. Mariola Magdaleno MD Primary Care Provider Active Start: January 01, 2025 Dr. Brent Rico DO Emergency Provider Active Start: January 01, 2025 Dr. Sunil Muir DO Admit Provider Active Start: January 01, 2025 Dr. Sunil Muir DO Attending Provider Active Start: January 01, 2025 FOR RECORDS PERTAINING TO PATIENTS WHO ARE OR HAVE BEEN ENROLLED IN A CHEMICAL DEPENDENCY/SUBSTANCEABUSE PROGRAM, SOME INFORMATION MAY BE OMITTED. This clinical summary was aggregated from multiple sources. Caution should be exercised in using it in the provision of clinical care. This summary normalizes information from multiple sources, and as a consequence, information in this document may materially change the coding, format and clinical context of patient data. In addition, data may be omitted in some cases. CLINICAL DECISIONS SHOULD BE BASED ON THE PRIMARY CLINICAL RECORDS. [facility] [employer] [facility]. provides no warranty or guarantee of the accuracy or completeness of information in this document.
== END | disposition home or self-care (01) ==
PROVIDERS: PCP Nurse Practitioner Family; Visit Provider Nurse Practitioner Family
DX: K62.5 Hemorrhage of anus and rectum (principal); E11.9 Type 2 diabetes mellitus without complications; E78.5 Hyperlipidemia, unspecified
CPT/HCPCS: 82274; 87493

== ENCOUNTER → 2025-04-08 | Outpatient (CLI) | payer MEDICARE, SELFPAY | END | disposition home or self-care (01) | LOC: LABSPEC 12:08 | PROVIDERS: PCP Nurse Practitioner Family; Visit Provider Surgery | DX: A04.72 Enterocolitis due to Clostridium difficile, not specified as recurrent (principal) | CPT/HCPCS: 87493 ==

== ENCOUNTER 2025-04-17 08:23 | Day surgery (SDC) | payer MEDICARE, SELFPAY ==
--- NOTE | 2025-04-16 19:15 | PAT.ANESEVAL ---
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 When Was Last Pacemaker Check QUESTION #4 FULL TEXT: You/Your Family Experience fever (hyperthermia) with Anesthesia Last Oral Intake Last Oral intake: Last Oral Intake NPO since Meds taken in AM with sips of water? Meds patient instructed to take am of surgery PONV PONV - cutting supervisor: PONV - cutting supervisor Female Yes 04/16/25 14:14 HX of Motion Sickness No 04/16/25 14:14 HX of N/V After Surgery No 04/16/25 14:14 Non-Smoker No 04/16/25 14:14 Duration of Surgery greater No 04/16/25 14:14 than 60 minutes Number of Risk Factors 1 04/16/25 14:14 PONV Score Low Risk 04/16/25 14:14 Height & Weight Height & Weight: Anesthesia: Height & Weight Height 5 ft 4 in 03/27/25 13:41 Respiratory Assessment Respiratory Assessment - cutting supervisor: Respiratory Tract Infection Hx - cutting supervisor Hx Respiratory Tract Infection No 04/16/25 14:14 STOP Sleep Apnea STOP Sleep Apnea - cutting supervisor: STOP Sleep Apnea - cutting supervisor Hx Hypertension Yes: per pt, controlled on 04/16/25 14:14 meds Hx Sleep Apnea Yes 04/16/25 14:14 CPAP Yes: with 2L bled in 04/16/25 14:14 BIPAP No 04/16/25 14:14 Do you snore loudly (louder than talking or can be heard Do you often feel tired/ fatigued/ sleepy during daytime? Has anyone observed you stop breathing during sleep? STOP Results Positive 04/16/25 14:14 QUESTION #5 FULL TEXT : Do you snore loudly (louder than talking or can be heard through closed doors)? 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 Specify any problems Hx of Preganancy in last 3 No 04/16/25 14:14 Months Nurse Filling Out Transfusion VCHRISTIN 04/16/25 14:14 & Questions: Date: 04/16/25 04/16/25 14:14 Time: 14:17 04/16/25 14:14 Patient unable to answer at this time (ie. confused, unrespo /Reproduction History /Reproductive History - cutting supervisor: /Reproductive Hx- cutting supervisor Hx Now No 04/16/25 14:14 Gestational Age (in weeks): EDC: Hx Hx Para Hx Section SAB No 04/16/25 14:14 [facility] Medical History (Updated 04/16/25 @ 14:14 by Hermila Carey) MRSA infection Post-menopausal Anxiety Insulin dependent diabetes mellitus Diabetes Fatty liver Anemia Back pain Injury of head and neck Syncope Sleep apnea On home oxygen therapy Wears glasses History of steroid therapy CPAP (continuous positive airway pressure) dependence Walker as ambulation aid Arthritis High cholesterol Easy bruising History of diverticulitis Gastric reflux Former smoker Chronic cough Leg cramps History of edema History of atrial fibrillation History of echocardiogram History of stress test Cardiology follow-up encounter Thoracic outlet syndrome TMJ (dislocation of temporomandibular joint) Kidney failure 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 Obesity Chronic respiratory failure with hypoxia, on home O2 therapy History of rheumatic fever Hyperlipidemia SELENA (obstructive sleep apnea) Osteoarthritis Paroxysmal atrial fibrillation (07/2020) Restless legs syndrome (RLS) H/O fibromyositis Fibromyalgia Essential tremor Depression Chronic low back pain Essential hypertension Class 2 obesity with body mass index (BMI) of 39.0 to 39.9 in adult Type 2 diabetes mellitus with diabetic polyneuropathy Vitamin D deficiency Vitamin B 12 deficiency Cor pulmonale Atrial fibrillation Irregular heart beat COPD (chronic obstructive pulmonary disease) Home Medications ?Medication ?Instructions ?Recorded ?Last Taken ?Type fluticasone propionate 50 2 spray intranasal DAILY nasal 03/20/22 05/19/22 History mcg/actuation nasal spray spray,suspension loratadine 10 mg capsule 10 mg PO DAILY blood 03/20/22 Unknown History aspirin 81 mg tablet,delayed 81 mg PO DAILY heart health 04/02/22 04/12/25 History release (Adult Low Dose Aspirin) albuterol sulfate 90 mcg/actuation 2 puff inhalation Q6H PRN 04/20/22 Unknown Rx aerosol inhaler shortness of breath or wheezing #8.5 grams albuterol sulfate 2.5 mg/3 mL 2.5 mg continuous nebulization Q4H 09/16/22 Unknown History (0.083 %) solution for nebulization PRN sob emollient (Vanicream topical) 1 applic topical PRN RASH 02/28/23 Unknown History fluticasone fur. 200 mcg-umeclid 1 inh inhalation DAILY breathi 04/11/23 Unknown History 62.5 mcg-vilant 25 mcg inhalat.powder (Trelegy Ellipta) blood sugar diagnostic (Accu-Chek #300 ea 01/02/24 Unknown Rx SmartView Test Strips) blood-glucose meter (OneTouch #1 ea 03/19/24 Unknown Rx Verio Flex Meter) azelastine 137 mcg (0.1 %) nasal 1 spray intranasal BID PRN 04/04/24 Unknown Rx spray congestion #30 mL atorvastatin 40 mg tablet (Lipitor) 40 mg PO DAILY #90 tabs 05/02/24 Unknown Rx baclofen 10 mg tablet 10 mg PO TID PRN pain 05/02/24 Unknown History naproxen sodium 220 mg capsule 220 mg PO Q12H PRN pain 05/02/24 Unknown History (Aleve) blood sugar diagnostic (OneTouch #100 ea 10/23/24 Unknown Rx Verio test strips) insulin glargine 100 unit/mL (3 32 unit (0.32 mL) subcut QPM #15 mL 10/23/24 Unknown Rx mL) subcutaneous pen montelukast 10 mg tablet 10 mg PO QHS #90 tabs 10/23/24 Unknown Rx potassium chloride 20 mEq 20 meq PO DAILY #90 TABLETS 10/23/24 Unknown Rx tablet,extended release(part/cryst) (Klor-Con M) insulin syringe-needle U-100 0.3 #50 ea 12/20/24 Unknown Rx mL 31 gauge x 5/16 (BD Insulin Syringe Ultra-Fine) lisinopril 5 mg tablet 5 mg PO DAILY #30 tabs 01/27/25 Unknown Rx furosemide 40 mg tablet 40 mg PO BID #180 tabs 02/04/25 Unknown Rx esomeprazole magnesium 40 mg 40 mg PO BID #60 caps 02/25/25 Unknown Rx capsule,delayed release metoprolol succinate 50 mg 50 mg PO DAILY #90 tabs 03/01/25 Unknown Rx tablet,extended release 24 hr (Toprol XL) Hydrocortisone 2.5%/lidocaine 5% #30 ea 03/27/25 Unknown Rx suppository (cmpd) duloxetine 40 mg capsule,delayed 80 mg PO DAILY 04/16/25 Unknown History release insulin aspart U-100 100 unit/mL 4 unit subcut TID PRN DIABETES 04/16/25 Unknown History (3 mL) subcutaneous pen (Novolog FlexPen U-100 Insulin aspart) tramadol 50 mg tablet 50 mg PO TID PRN pain 04/16/25 Unknown History Allergy/AdvReac Type Severity Reaction Status Date / Time cat dander Allergy Severe Inflammation Verified 04/16/25 13:57 of lung house dust Allergy Nasal Verified 04/16/25 13:57 congestion and watery eyes meperidine (From Demerol) Allergy Itching Verified 04/16/25 13:57 mold Allergy nasal Verified 04/16/25 13:57 congestion and watery eyes Penicillins (PCN) Allergy Hives Verified 04/16/25 13:57 tree and shrub pollen Allergy Other Verified 04/16/25 13:57 Family History Mother COPD (chronic obstructive pulmonary disease) Colon cancer Father COPD (chronic obstructive pulmonary disease) Myocardial infarction Alcoholism Emphysema lung Sister Breast cancer Cancer Lung cancer Brother COPD (chronic obstructive pulmonary disease) Aunt Diabetes Surgical History (Updated 04/16/25 @ 14:14 by Hemrila Carey) History of esophagogastroduodenoscopy (EGD) Hx of cataract surgery History of bilateral cataract extraction H/O esophagogastroduodenoscopy History of cardiac catheterization History of thumb surgery History of tracheostomy (~2013) History of radiofrequency ablation (RFA) of nerve of cervical spine History of knee replacement History of colonoscopy (~01/2022) History of dilatation and curettage History of tonsillectomy History of umbilical hernia repair H/O: hysterectomy Social History household members: spouse current occupational status: retired 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 Normal sinus rhythm. Incomplete right bundle branch block. Stress test pertinent findings: 02/03/2021. EF of 65%. No evidence of stress-induced ischemia. No prior infarction. Echo (EF%) pertinent findings: 02/03/2021. Left ventricular systolic function is normal. No aortic stenosis. Heart catheterization pertinent findings: 04/23/2022. Normal coronary arteries. Consult pertinent findings: 05/02/2024. Sammy SMITH-C. 1. Paroxysmal A-fib?chronic-normal sinus rhythm today. 30-day event monitor in October 2022 was normal sinus rhythm. No document A-fib since 2019. No anticoagulation due to maintaining sinus rhythm. Continue aspirin and metoprolol. 2. 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 3. Hypertension?chronic?controlled 4. Chest pain?acute-patient acknowledges occasional chest pain. Most recent cardiac cath showed normal coronary arteries. Continue to monitor. Recommendation Anesthesia Recommendation Anesthesia recommendation: OPTIMIZED for anesthesia
[2025-04-17] VITALS (9 sets, daily range): BP systolic 93–148; BP diastolic 54–80; PULSE 62–102; RESP 16–20; TEMP 36.1–36.7; O2SAT 97–100; BMI 35.9
--- NOTE | 2025-04-17 08:36 | PCM.HP.BLA ---
History and Physical Date of Admission: 04/17/25 Date of Service: 03/27/25 MR#: [id number] Acct: [id number] Name: MENA JENKINS Rep #: [id number] : 1950 Provider: Dr. Marcela Norman MD Age/Sex: 74/F Location: [facility] Status: Signed Intake Vital Signs 01/02/2510:50 03/27/2513:41 Height 5 ft 4 in 5 ft 4 in Weight: 210 lb BMI 36.0 BP 92/60 Blood Pressure Location Rt brachial Position Sitting Respiration 19 H Pulse 73 Pulse Source Monitor Pulse Oximetry (%) 96 Oxygen Delivery Method nasal canula Oxygen Flow Rate (L/min) 2 Intake Visit Reasons: ABD PAIN & RECTAL BLEEDING Chief Complaint: abdominal pain/rectal bleeding/+occult stool Is patient in pain?: Yes (chronic c/o) Allergies cat dander Allergy (Severe, Verified 03/27/25 13:42) Inflammation of lunghouse dust Allergy (Verified 03/27/25 13:42) Nasal congestion and watery eyesmeperidine (From Demerol) Allergy (Verified 03/27/25 13:42) Itchingmold Allergy (Verified 03/27/25 13:42) nasal congestion and watery eyesPenicillins (PCN) Allergy (Verified 03/27/25 13:42) Hivestree and shrub pollen Allergy (Verified 03/27/25 13:42) Other Medications ?Medication ?Instructions ?Recorded ?Confirmed ?Type fluticasone propionate 50 2 spray intranasal DAILY nasal 03/20/22 03/27/25 History mcg/actuation nasal spray spray,suspension loratadine 10 mg capsule 10 mg PO DAILY blood 03/20/22 03/27/25 History aspirin 81 mg tablet,delayed 81 mg PO DAILY heart health 04/02/22 03/27/25 History release (Adult Low Dose Aspirin) albuterol sulfate 90 mcg/actuation 2 puff inhalation Q6H PRN 04/20/22 03/27/25 Rx aerosol inhaler shortness of breath or wheezing #8.5 grams albuterol sulfate 2.5 mg/3 mL 2.5 mg continuous nebulization Q4H 09/16/22 03/27/25 History (0.083 %) solution for nebulization PRN sob emollient (Vanicream topical) applic topical 02/28/23 03/27/25 History sodium chloride-aloe vera nasal 1 applic topical HS PRN nasal gel 02/28/23 03/27/25 History gel ([place] Saline nasal gel) fluticasone fur. 200 mcg-umeclid 1 inh inhalation DAILY breathi 04/11/23 03/27/25 History 62.5 mcg-vilant 25 mcg inhalat.powder (Trelegy Ellipta) blood sugar diagnostic (Accu-Chek #300 ea 01/02/24 07/06/24 Rx SmartView Test Strips) blood-glucose meter (OneTouch #1 ea 03/19/24 07/06/24 Rx Verio Flex Meter) azelastine 137 mcg (0.1 %) nasal 1 spray intranasal BID PRN 04/04/24 03/27/25 Rx spray congestion #30 mL atorvastatin 40 mg tablet (Lipitor) 40 mg PO DAILY #90 tabs 05/02/24 03/27/25 Rx baclofen 10 mg tablet 10 mg PO TID PRN pain 05/02/24 03/27/25 History naproxen sodium 220 mg capsule 220 mg PO Q12H PRN pain 05/02/24 03/27/25 History (Aleve) duloxetine 40 mg capsule,delayed 40 mg PO DAILY #90 caps 09/05/24 03/27/25 Rx release blood sugar diagnostic (OneTouch #100 ea 10/23/24 Rx Verio test strips) insulin glargine 100 unit/mL (3 32 unit (0.32 mL) subcut QPM #15 mL 10/23/24 03/27/25 Rx mL) subcutaneous pen montelukast 10 mg tablet 10 mg PO QHS #90 tabs 10/23/24 03/27/25 Rx potassium chloride 20 mEq 20 meq PO DAILY #90 TABLETS 10/23/24 03/27/25 Rx tablet,extended release(part/cryst) (Klor-Con M) insulin syringe-needle U-100 0.3 #50 ea 12/20/24 Rx mL 31 gauge x 5/16 (BD Insulin Syringe Ultra-Fine) lisinopril 5 mg tablet 5 mg PO DAILY #30 tabs 01/27/25 03/27/25 Rx furosemide 40 mg tablet 40 mg PO BID #180 tabs 02/04/25 03/27/25 Rx esomeprazole magnesium 40 mg 40 mg PO BID #60 caps 02/25/25 03/27/25 Rx capsule,delayed release metoprolol succinate 50 mg 50 mg PO DAILY #90 tabs 03/01/25 03/27/25 Rx tablet,extended release 24 hr (Toprol XL) Hydrocortisone 2.5%/lidocaine 5% #30 ea 03/27/25 03/27/25 Rx suppository (cmpd) vancomycin 250 mg capsule 250 mg PO Q6H 03/27/25 03/27/25 History Have you fallen in the past year?: No PFSH Medical History Wears glasses History of steroid therapy CPAP (continuous positive airway pressure) dependence Walker as ambulation aid Arthritis High cholesterol Easy bruising History of diverticulitis Gastric reflux Former smoker Chronic cough Leg cramps History of edema History of atrial fibrillation History of echocardiogram History of stress test Cardiology follow-up encounter Thoracic outlet syndrome TMJ (dislocation of temporomandibular joint) Kidney failure 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 Obesity Chronic respiratory failure with hypoxia, on home O2 therapy History of rheumatic fever Hyperlipidemia SELENA (obstructive sleep apnea) Osteoarthritis Paroxysmal atrial fibrillation (07/2020) Restless legs syndrome (RLS) H/O fibromyositis Fibromyalgia Essential tremor Depression Chronic low back pain Essential hypertension Class 2 obesity with body mass index (BMI) of 39.0 to 39.9 in adult Type 2 diabetes mellitus with diabetic polyneuropathy Vitamin D deficiency Vitamin B 12 deficiency Cor pulmonale Atrial fibrillation Irregular heart beat COPD (chronic obstructive pulmonary disease) Surgical History Hx of cataract surgery History of bilateral cataract extraction H/O esophagogastroduodenoscopy History of cardiac catheterization History of thumb surgery History of tracheostomy (~2013) History of radiofrequency ablation (RFA) of nerve of cervical spine History of knee replacement History of colonoscopy (~01/2022) History of dilatation and curettage History of tonsillectomy History of umbilical hernia repair H/O: hysterectomy Family History Mother COPD (chronic obstructive pulmonary disease) Colon cancerFather COPD (chronic obstructive pulmonary disease) Myocardial infarction Alcoholism Emphysema lungSister Breast cancer Cancer Lung cancerBrother COPD (chronic obstructive pulmonary disease)Aunt Diabetes Social History household members: spouse current occupational status: retired 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 Patient states for about the last 2 months she noticed tissue coming out of her anus when she is on the toilet typically all the time patient does have some blood per rectum as well. Again this been happening for about 2 months. Patient was recently diagnosed with C. difficile after her hospitalization patient currently completing her dose of vancomycin. Patient does take Nexium denies any GERD symptoms. Patient states that she does have to strain on the toilet which causes the possible prolapse as she can even urinate without straining. ROS General General: Yes weight change and fatigue; No appetite, colon cancer, breast cancer or weakness Additional Details: 30# planned, drinking a wt loss tea. HEENT HEENT: Yes eye surgery; No difficulty swallowing, eye injury, swollen glands or hoarseness Endo Endocrine: Yes diabetes mellitus; No thyroid disease, thyroid cancer, Hair loss, heat intolerance or cold intolerance Skin Skin: No rash or changing moles Musc Musculoskeletal: Yes back problems and arthritis; No rheumatoid arthritis, gout or joint pain Cardio Cardiovascular: Yes atrial fibrillation and high blood pressure; No murmur, pacemaker, heart disease, heart attack, heart stent, palpitations, shortness of breath with exertion or chest pain Psych Psychiatric: No depression, anxiety or hearing voices Resp Respiratory: Yes shortness of breath, Yes sleep apnea, Yes cough, Yes COPD, Yes asthma, No emphysema and No wheezing Gastro Gastrointestinal: Yes abdominal pain, No nausea or vomiting, Yes diarrhea, Yes constipation, Yes blood in stool, Yes acid reflux, Yes hemorrhoids, Yes ulcers, No gallbladder problem and No black,tarry stools Mark Hematologic: No blood thinners, No blood disorders, No bleeding, Yes anemia and No blood clots Neuro Neurologic: No system reviewed and no additional complaints, except as documented, No as per HPI, No abnormal gait, No abnormal hearing, No abnormal movements, No abnormal speech, No behavioral changes, No burning sensations, No confusion, No convulsions, No disequilibrium, No dizziness, No localized weakness, No frequent falls, No headache(s), No lack of coordination, No loss of vision, No memory loss, No numbness, No other visual disturbances, No radicular pain, No restless legs, No sensory deficit, No syncope, No tingling, No tremor(s), No weakness and No other Exam Const General: cooperative, healthy appearing, comfortable and no acute distress [facility] Head: normocephalic and atraumatic Neck Neck: supple Resp Effort & Inspection: normal respiratory effort Cardio Rate: regular rate GI Inspection: non-distended Palpation: soft and nontender Other: Questionable prolapse with Valsalva, very tender at the rectum, no gross blood or masses on ANA Skin General: no rashes or lesions noted Neuro General: CN's II-XI intact bilaterally Extrem General: normal to inspection Psych Mental Status: mental status grossly normal Attitude: cooperative Assessment and Plan Assessment and Plan (1) C. difficile colitis: Status: Acute (2) Occult blood positive stool: Status: Acute (3) Upper abdominal pain: Status: Acute (4) Rectal pain: Status: Acute (5) Straining during urination: Status: Acute Orders: Orders CDIFF (PCR) 03/27/25 A04.72 - Enterocolitis due to Clostridium difficile, not specified as recurrent Medications: New Hydrocortisone 2.5%/lidocaine 5% suppository (cmpd) Insert rectally twice daily 30 ea 1RF Plan Discussed with patient does appear that she does have some partial prolapse on Valsalva on exam. Will try hydrocortisone/lidocaine suppositories due to the rectal pain and see if that improves. Patient states that she has to strain to even urinate. Will plan to refer patient to urology for this. Will have patient complete her C. difficile vancomycin and recheck stool prior to EGD and colonoscopy. I have discussed the above with the patient. I have offered the patient esophagogastroduodenoscopy and colonoscopy for evaluation. I have explained the risks/benefits of the procedure and described the procedure. I have discussed the risks with the patient, including but not limited to: infection, bleeding, perforation of the GI tract requiring emergency surgery, inability to complete the procedure, injury to any internal organs, complications of anesthesia, etc. - the patient understands and agrees to proceed. I have answered all the patient's questions to the patient's satisfaction and the patient has no further questions. The patient has been given instructions for the colon cleansing preparation. 1 day of clears, MiraLAX Dulcolax prep. Marcela Norman M.D. Pager: [phone] [facility] [address] [place] [address], [address] [place] [address] Office: [phone] Coding Level of Care Code Off vis,new,level 4 Diagnoses C. difficile colitis A04.72 Occult blood positive stool R19.5 Upper abdominal pain R10.10 Rectal pain K62.89 Straining during urination R39.16 Clinical Quality Measures Falls Risk Screening/Assistive Devices Have you fallen in the past year?: No 03/29/25 0836 <Electronically signed by Marcela Norman MD> Date Marcela Norman MD
[2025-04-17] MEDS: Lactated Ringers 1,000 ML 15 ML IV (08:55)
--- NOTE | 2025-04-17 09:12 | PCM.PRE.AN2 ---
ASA Classification* ASA Classification ASA Classification: 3 Assessment & Plan Anesthesia* Anesthesia Assessment Anesthesia Assessment: Discussed sedation and/or anesthesia options, risks, benefits, and alternatives with patient/parents/legal guardian/POA. Questions invited. The patient/parents/legal guardian/POA seems to understand and agrees to proceed with anesthesia plan. Reviewed the physical assessment, medical history, allergy history and patient home medications list prior to surgery/procedure/anesthetic and documented any changes. Performed airway and anesthesia risk assessments. Anesthesia Type Anesthesia Type: MAC History Source History Obtained from:: Patient and Chart Anesthesia Focused Assessment* Temperature: 98.1 F Pulse Rate: 102 Blood Pressure: 148/80 Respiratory Rate: 20 Pulse Ox: 97 Oxygen Delivery Method: Nasal Cannula (2 l/min at baseline) Oxygen Flow Rate (L/min): 2 Airway Assessment Mouth opens: >3 cm Mallampati Score: II Teeth Condition: Caps/Crowns Neck Range of motion (ROM): Full ROM Labs Anesthesia Preop lab: CBC WBC 9.3 K/mm3 (4.4-11.0) 03/15/25 11:36 03/15/25 RBC 4.42 M/mm3 (4.2-5.4) 03/15/25 11:36 03/15/25 Hgb 13.2 g/dL (12.0-15.0) 03/15/25 11:36 03/15/25 Hct 39.9 % (37-47) 03/15/25 11:36 03/15/25 Plt Count 339 K/mm3 (150-450) 03/15/25 11:36 03/15/25 CHEMISTRY Potassium 4.3 mmol/L (3.3-5.1) 03/15/25 11:36 03/15/25 Sodium 139 mmol/L (133-145) 03/15/25 11:36 03/15/25 Magnesium 1.8 mg/dL (1.5-2.2) 01/01/25 22:04 01/01/25 Phosphorus 3.6 mg/dL (2.7-4.5) 01/02/25 03:43 01/02/25 BUN 19 mg/dL (4-19) 03/15/25 11:36 03/15/25 Creatinine 1.41 mg/dL (0.70-1.20) H 03/15/25 11:36 03/15/25 Glucose 120 mg/dL (70-99) H 03/15/25 11:36 03/15/25 POC Glucose 215 mg/dL (74-106) H 01/02/25 11:44 01/02/25 TSH 0.725 uIU/mL (0.300-4.200) 01/01/25 22:04 01/01/25 COAG PT 15.1 SECONDS (11.7-14.9) H 01/01/25 18:18 01/01/25 Pre-Assessment Diagnosis/Proposed Procedure Planned Operative Procedure(s): COLONOSCOPY/EGD Anesthesia History 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 When Was Last Pacemaker Check QUESTION #4 FULL TEXT: You/Your Family Experience fever (hyperthermia) with Anesthesia Last Oral Intake Last Oral intake: Last Oral Intake NPO since 07:30 04/17/25 08:52 Meds taken in AM with sips of Yes 04/17/25 08:52 water? Meds patient instructed to trelegy, metoprolol 04/17/25 08:52 take am of surgery PONV PONV - outside plant technician: PONV - outside plant technician Female Yes 04/16/25 14:14 HX of Motion Sickness No 04/16/25 14:14 HX of N/V After Surgery No 04/16/25 14:14 Non-Smoker No 04/16/25 14:14 Duration of Surgery greater No 04/16/25 14:14 than 60 minutes Number of Risk Factors 1 04/16/25 14:14 PONV Score Low Risk 04/16/25 14:14 Height & Weight Height & Weight: Anesthesia: Height & Weight Height 5 ft 4 in 04/17/25 08:52 Weight: 95 kg 04/17/25 08:52 Body Mass Index (BMI) 35.9 04/17/25 08:52 Respiratory Assessment Respiratory Assessment - outside plant technician: Respiratory Tract Infection Hx - outside plant technician Hx Respiratory Tract Infection No 04/16/25 14:14 STOP Sleep Apnea STOP Sleep Apnea - outside plant technician: STOP Sleep Apnea - outside plant technician Hx Hypertension Yes: per pt, controlled on 04/16/25 14:14 meds Hx Sleep Apnea Yes 04/16/25 14:14 CPAP Yes: with 2L bled in 04/16/25 14:14 BIPAP No 04/16/25 14:14 Do you snore loudly (louder than talking or can be heard Do you often feel tired/ fatigued/ sleepy during daytime? Has anyone observed you stop breathing during sleep? STOP Results Positive 04/16/25 14:14 QUESTION #5 FULL TEXT : Do you snore loudly (louder than talking or can be heard through closed doors)? Tobacco Use History Tobacco Use History - outside plant technician: Tobacco Use History - outside plant technician Tobacco Use Smoking Status Former smoker 04/16/25 14:14 Hx Tobacco Use No 04/16/25 14:14 Years Smoking Packs Smoked per Day Smoking Cessation Date was Yes - quit smoking within 15 04/16/25 14:14 within the last 15 years years Hx Smoking Cessation Date 02/08/80 04/16/25 14:14 Hx Smoking Cessation Counseling Hematologic Medial History Hematologic Hx - outside plant technician: Hematologic Medical Hx - chef de froid Hx of Blood Transfusion No 04/16/25 14:14 Hx of Transfusion in last 3 No 04/16/25 14:14 Months Date of Last Transfusion (if within last 3 months) Ever experience any problems No 04/16/25 14:14 with transfusion(s)? Specify any problems Hx of Preganancy in last 3 No 04/16/25 14:14 Months Nurse Filling Out Transfusion VCHRISTIN 04/16/25 14:14 & Questions: Date: 04/16/25 04/16/25 14:14 Time: 14:17 04/16/25 14:14 Patient unable to answer at this time (ie. confused, unrespo /Reproduction History /Reproductive History - outside plant technician: /Reproductive Hx- outside plant technician Hx Now No 04/16/25 14:14 Gestational Age (in weeks): EDC: Hx Hx Para Hx Section SAB No 04/16/25 14:14 Active Medications Active Medications: Current Medications Generic Name Dose Route Start Last Admin Trade Name Freq PRN Reason Stop Dose Admin Lactated Ringer's 1,000 mls @ 15 mls/hr 04/17/25 08:45 04/17/25 08:55 IV 15 mls/hr .Q48H RICO Administration PFSH Medical History MRSA infection Post-menopausal Anxiety Insulin dependent diabetes mellitus Diabetes Fatty liver Anemia Back pain Injury of head and neck Syncope Sleep apnea On home oxygen therapy Wears glasses History of steroid therapy CPAP (continuous positive airway pressure) dependence Walker as ambulation aid Arthritis High cholesterol Easy bruising History of diverticulitis Gastric reflux Former smoker Chronic cough Leg cramps History of edema History of atrial fibrillation History of echocardiogram History of stress test Cardiology follow-up encounter Thoracic outlet syndrome TMJ (dislocation of temporomandibular joint) Kidney failure 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 Obesity Chronic respiratory failure with hypoxia, on home O2 therapy History of rheumatic fever Hyperlipidemia SELENA (obstructive sleep apnea) Osteoarthritis Paroxysmal atrial fibrillation (07/2020) Restless legs syndrome (RLS) H/O fibromyositis Fibromyalgia Essential tremor Depression Chronic low back pain Essential hypertension Class 2 obesity with body mass index (BMI) of 39.0 to 39.9 in adult Type 2 diabetes mellitus with diabetic polyneuropathy Vitamin D deficiency Vitamin B 12 deficiency Cor pulmonale Atrial fibrillation Irregular heart beat COPD (chronic obstructive pulmonary disease) Home Medications ?Medication ?Instructions ?Recorded ?Last Taken ?Type fluticasone propionate 50 2 spray intranasal DAILY nasal 03/20/22 05/19/22 History mcg/actuation nasal spray spray,suspension loratadine 10 mg capsule 10 mg PO DAILY blood 03/20/22 Unknown History aspirin 81 mg tablet,delayed 81 mg PO DAILY heart health 04/02/22 04/12/25 History release (Adult Low Dose Aspirin) albuterol sulfate 90 mcg/actuation 2 puff inhalation Q6H PRN 04/20/22 Unknown Rx aerosol inhaler shortness of breath or wheezing #8.5 grams albuterol sulfate 2.5 mg/3 mL 2.5 mg continuous nebulization Q4H 09/16/22 Unknown History (0.083 %) solution for nebulization PRN sob emollient (Vanicream topical) 1 applic topical PRN RASH 02/28/23 Unknown History fluticasone fur. 200 mcg-umeclid 1 inh inhalation DAILY breathi 04/11/23 04/17/25 07:30 History 62.5 mcg-vilant 25 mcg inhalat.powder (Trelegy Ellipta) blood sugar diagnostic (Accu-Chek #300 ea 01/02/24 Unknown Rx SmartView Test Strips) blood-glucose meter (OneTouch #1 ea 03/19/24 Unknown Rx Verio Flex Meter) azelastine 137 mcg (0.1 %) nasal 1 spray intranasal BID PRN 04/04/24 Unknown Rx spray congestion #30 mL atorvastatin 40 mg tablet (Lipitor) 40 mg PO DAILY #90 tabs 05/02/24 Unknown Rx baclofen 10 mg tablet 10 mg PO TID PRN pain 05/02/24 Unknown History naproxen sodium 220 mg capsule 220 mg PO Q12H PRN pain 05/02/24 Unknown History (Aleve) blood sugar diagnostic (OneTouch #100 ea 10/23/24 Unknown Rx Verio test strips) insulin glargine 100 unit/mL (3 32 unit (0.32 mL) subcut QPM #15 mL 10/23/24 Unknown Rx mL) subcutaneous pen montelukast 10 mg tablet 10 mg PO QHS #90 tabs 10/23/24 Unknown Rx potassium chloride 20 mEq 20 meq PO DAILY #90 TABLETS 10/23/24 Unknown Rx tablet,extended release(part/cryst) (Klor-Con M) insulin syringe-needle U-100 0.3 #50 ea 12/20/24 Unknown Rx mL 31 gauge x 5/16 (BD Insulin Syringe Ultra-Fine) lisinopril 5 mg tablet 5 mg PO DAILY #30 tabs 01/27/25 Unknown Rx furosemide 40 mg tablet 40 mg PO BID #180 tabs 02/04/25 Unknown Rx esomeprazole magnesium 40 mg 40 mg PO BID #60 caps 02/25/25 Unknown Rx capsule,delayed release metoprolol succinate 50 mg 50 mg PO DAILY #90 tabs 03/01/25 04/17/25 07:30 Rx tablet,extended release 24 hr (Toprol XL) Hydrocortisone 2.5%/lidocaine 5% #30 ea 03/27/25 Unknown Rx suppository (cmpd) duloxetine 40 mg capsule,delayed 80 mg PO DAILY 04/16/25 Unknown History release insulin aspart U-100 100 unit/mL 4 unit subcut TID PRN DIABETES 04/16/25 Unknown History (3 mL) subcutaneous pen (Novolog FlexPen U-100 Insulin aspart) tramadol 50 mg tablet 50 mg PO TID PRN pain 04/16/25 Unknown History Allergy/AdvReac Type Severity Reaction Status Date / Time cat dander Allergy Severe Inflammation Verified 04/17/25 08:50 of lung house dust Allergy Nasal Verified 04/17/25 08:50 congestion and watery eyes meperidine (From Demerol) Allergy Itching Verified 04/17/25 08:50 mold Allergy nasal Verified 04/17/25 08:50 congestion and watery eyes Penicillins (PCN) Allergy Hives Verified 04/17/25 08:50 tree and shrub pollen Allergy Other Verified 04/17/25 08:50 Family History Mother COPD (chronic obstructive pulmonary disease) Colon cancer Father COPD (chronic obstructive pulmonary disease) Myocardial infarction Alcoholism Emphysema lung Sister Breast cancer Cancer Lung cancer Brother COPD (chronic obstructive pulmonary disease) Aunt Diabetes Surgical History History of esophagogastroduodenoscopy (EGD) Hx of cataract surgery History of bilateral cataract extraction H/O esophagogastroduodenoscopy History of cardiac catheterization History of thumb surgery History of tracheostomy (~2013) History of radiofrequency ablation (RFA) of nerve of cervical spine History of knee replacement History of colonoscopy (~01/2022) History of dilatation and curettage History of tonsillectomy History of umbilical hernia repair H/O: hysterectomy Social History household members: spouse current occupational status: retired 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
--- NOTE | 2025-04-17 09:30 | COLBX_PTH ---
PATIENT: MENA JENKINS LOC: EN U#:[id number] AGE/SX: 74/F ROOM: RE04/17/[address]: Dr. Marcela Norman MD : 1950 BED: DIS: 04/17/2025 SPEC #: [id number] RECD: 04/17/25 11:26 STATUS: CLIFFORD ROGERIO #: [id number] JUNO: 04/17/25 09:[address]: Marcela Norman DEPT: SURGICAL PATHOLOGY RECD BY: Abhay Jordan ENTERED: 04/17/25 13:49 SP TYPE: COLON BX OTHR DR: Lotus Vicente NP-C ELISEO Gaston Tissues: A - Gastric mucous membrane B - Cecum, NOS C - Ascending colon D - Rectum, NOS Procedures: Immunohistochemical Stains Surgery Specimen Level IV HEADER OPERATION: Colonoscopy with polypectomy and biopsy, EGD with biopsy PRE-OP DIAGNOSIS: C. diff colitis, occult blood positive stool, upper abdominal pain, rectal pain, straining during urination TISSUE SUBMITTED: A- Antrum biopsy, B- Cecum polyp, C- Ascending colon polyp, D- Rectal biopsy abnormal mucosa MICROSCOPIC DIAGNOSIS A. Antrum, biopsy: Mild chronic inactive gastritis. Immunohistochemistry for H. pylori is negative. B. Cecum, colon, polyp, biopsy: Tubular adenoma. C. Ascending colon, polyp, biopsy: Tubular adenoma. D. Rectum, colon, abnormal mucosa, biopsy: Focal active colitis. Negative for signs of chronicity. MICROSCOPIC DESCRIPTION Slides are reviewed. All matched controls reacted appropriately. These tests were developed and their performance characteristics determined by [facility]. They may not have been cleared or approved by the U.S. Food and Drug Administration. The FDA has determined that such clearance or approval is not necessary. The above immunohistochemical/dualISH markers are viewed by the Pathologist. GROSS DESCRIPTION A. Received in fixative is one container labeled with the patient's name and designated Antrum biopsy. The specimen consists of one irregular fragment of light jasmine soft tissue that measures 0.8 cm. The specimen is totally submitted in one cassette. B. Received in fixative is one container labeled with the patient's name and designated Cecum polyp. The specimen consists of two irregular fragments of light jasmine soft tissue, each measuring 0.4 cm. The specimen is totally submitted in one cassette. C. Received in fixative is one container labeled with the patient's name and designated Ascending colon polyp. The specimen consists of one irregular fragment of light jasmine soft tissue that measures 0.4 cm. The specimen is totally submitted in one cassette. D. Received in fixative is one container labeled with the patient's name and designated Rectal biopsy abnormal mucosa. The specimen consists of one irregular fragment of light jasmine soft tissue that measures 0.5 cm. The specimen is totally submitted in one cassette. GERMAIN/ 04/17/2025 CPT:05676t3,78550
--- NOTE | 2025-04-17 10:48 | OP.EGD_ITS ---
Patient Name: Tish Herring Procedure Date: 04/17/2025 10:02 AM Date of : 1950 Age: 74 Procedure: Upper GI endoscopy Indications: Heartburn Providers: Marcela Norman MD Referring MD: Jenny Gaston Medicines: Monitored Anesthesia Care Patient Profile: This is a 74 year old female. Complications: No immediate complications. Procedure: Pre-Anesthesia Assessment: - Prior to the procedure, a History and Physical was performed, and patient medications and allergies were reviewed. The patient's tolerance of previous anesthesia was also reviewed. The risks and benefits of the procedure and the sedation options and risks were discussed with the patient. All questions were answered, and informed consent was obtained. Prior Anticoagulants: The patient has taken no anticoagulant or antiplatelet agents. ASA Grade Assessment: Per anesthesia. After reviewing the risks and benefits, the patient was deemed in satisfactory condition to undergo the procedure. After obtaining informed consent, the endoscope was passed under direct vision. Throughout the procedure, the patient's blood pressure, pulse, and oxygen saturations were monitored continuously. The colonoscope was introduced through the mouth, and advanced to the second part of duodenum. The upper GI endoscopy was accomplished without difficulty. The patient tolerated the procedure well. Scope In: 10:09:02 AM Scope Out: 10:12:49 AM Total Procedure Duration Time 0 hours 3 minutes 47 seconds Findings: The Z-line was regular and was found 40 cm from the incisors. The examined duodenum was normal. Mildly erythematous mucosa without bleeding was found in the gastric antrum. Biopsies were taken with a cold forceps for histology. Biopsies were taken with a cold forceps for Helicobacter pylori cultures. The cardia and gastric fundus were normal on retroflexion. Impression: - Z-line regular, 40 cm from the incisors. - Normal examined duodenum. - Erythematous mucosa in the antrum. Biopsied. Recommendation: - Await pathology results. - Discharge patient to home. - Resume previous diet. - Continue present medications. Procedure Code(s): --- Professional --- 87767, Esophagogastroduodenoscopy, flexible, transoral; with biopsy, single or multiple Diagnosis Code(s): --- Professional --- K31.89, Other diseases of stomach and duodenum R12, Heartburn CPT copyright 2021 [employer]. All rights reserved. The codes documented in this report are preliminary and upon animation artist review may be revised to meet current compliance requirements. MD Marcela Aldana MD 04/17/2025 10:47:40 AM This report has been signed electronically. Number of Addenda: 0 Note Initiated On: 04/17/2025 10:02 AM
--- NOTE | 2025-04-17 10:48 | OP.CCLET_ITS ---
04/17/2025 Jenny Gaston Re : Upper GI endoscopy procedure for Tish Herring Dear Jules This procedure was performed on Thursday, April 17, 2025. My impressions and recommendations are as follows: Impressions : - Z-line regular, 40 cm from the incisors. - Normal examined duodenum. - Erythematous mucosa in the antrum. Biopsied. Recommendations : - Await pathology results. - Discharge patient to home. - Resume previous diet. - Continue present medications. My findings are described in the full procedure note, which is enclosed. If I can be of further assistance, please feel free to contact me at Doctor phone number(s): , Work: . Sincerely, MD Marcela Aldana MD 04/17/2025 10:47:40 AM This report has been signed electronically.
--- NOTE | 2025-04-17 10:53 | PCM.POST.ANE ---
Anesthesia: Postop Eval I Current Vital Signs Temperature: 97 F Pulse Rate: 62 Blood Pressure: 93/66 Respiratory Rate: 16 Pulse Ox: 100 Oxygen Delivery Method: Nasal Cannula Oxygen Flow Rate (L/min): 2 Assessment Airway patent: Yes Spontaneous unlabored respirations: Yes Mental status: Awake and Calm nausea: No Vomiting: No Anesthesia Complication: No Fluid Hydration Crystalloid volume administer (ml): 600 Total IV fluid infused: 600 Progress Note Anesthesia document: Postop Eval 1 completed: Yes
--- NOTE | 2025-04-17 10:56 | OP.COLON_ITS ---
Patient Name: Tish Herring Procedure Date: 04/17/2025 10:13 AM Date of : 1950 Age: 74 Procedure: Colonoscopy Indications: Rectal bleeding, rectal prolapse Providers: Marcela Norman MD Referring MD: Jenny Gaston Medicines: Monitored Anesthesia Care Patient Profile: This is a 74 year old female. This is a 74 year old female. Last Colonoscopy: January 2022. Complications: No immediate complications. Procedure: Pre-Anesthesia Assessment: - Prior to the procedure, a History and Physical was performed, and patient medications and allergies were reviewed. The patient's tolerance of previous anesthesia was also reviewed. The risks and benefits of the procedure and the sedation options and risks were discussed with the patient. All questions were answered, and informed consent was obtained. Prior Anticoagulants: The patient has taken no anticoagulant or antiplatelet agents. ASA Grade Assessment: Per anesthesia. After reviewing the risks and benefits, the patient was deemed in satisfactory condition to undergo the procedure. After I obtained informed consent, the scope was passed under direct vision. Throughout the procedure, the patient's blood pressure, pulse, and oxygen saturations were monitored continuously. The colonoscope was introduced through the anus and advanced to the cecum, identified by the appendiceal orifice, ileocecal valve and palpation. The colonoscopy was performed without difficulty. The patient tolerated the procedure well. The quality of the bowel preparation was good. Scope In: 10:14:40 AM Scope Withdrawal Time 0 hours 19 minutes 3 seconds Scope Out: 10:41:53 AM Total Procedure Duration Time 0 hours 27 minutes 13 seconds Findings: The perianal and digital rectal examinations were normal. Two semi-pedunculated polyps were found in the ascending colon and cecum. The polyps were less than 5 mm in size. These polyps were removed with a hot snare. Resection and retrieval were complete. Scattered small-mouthed diverticula were found in the sigmoid colon. A localized area of moderately erythematous mucosa was found in the rectum. Biopsies were taken with a cold forceps for histology. Likely site of rectal prolapse which is currently reduced. The exam was otherwise without abnormality on direct and retroflexion views. Impression: - Two less than 5 mm polyps in the ascending colon and in the cecum, removed with a hot snare. Resected and retrieved. - Diverticulosis in the sigmoid colon. - Erythematous mucosa in the rectum. Biopsied. - The examination was otherwise normal on direct and retroflexion views. Recommendation: - Discharge patient to home. - Resume previous diet. - Continue present medications. - Await pathology results. - Repeat colonoscopy in 5 years for surveillance based on pathology results. - depending on overall health at time of possible repeat Procedure Code(s): --- Professional --- 30958, Colonoscopy, flexible; with removal of tumor(s), polyp(s), or other lesion(s) by snare technique 05365, 59, Colonoscopy, flexible; with biopsy, single or multiple Diagnosis Code(s): --- Professional --- D12.2, Benign neoplasm of ascending colon D12.0, Benign neoplasm of cecum K62.89, Other specified diseases of anus and rectum K62.5, Hemorrhage of anus and rectum K57.30, Diverticulosis of large intestine without perforation or abscess without bleeding CPT copyright 2021 [employer]. All rights reserved. The codes documented in this report are preliminary and upon admitting counselor review may be revised to meet current compliance requirements. MD Marcela Aldana MD 04/17/2025 10:55:52 AM This report has been signed electronically. Number of Addenda: 0 Note Initiated On: 04/17/2025 10:13 AM
--- NOTE | 2025-04-17 10:56 | OP.CCLET_ITS ---
04/17/2025 Jenny Gaston Re : Colonoscopy procedure for Tish Herring Dear Jules This procedure was performed on Thursday, April 17, 2025. My impressions and recommendations are as follows: Impressions : - Two less than 5 mm polyps in the ascending colon and in the cecum, removed with a hot snare. Resected and retrieved. - Diverticulosis in the sigmoid colon. - Erythematous mucosa in the rectum. Biopsied. - The examination was otherwise normal on direct and retroflexion views. Recommendations : - Discharge patient to home. - Resume previous diet. - Continue present medications. - Await pathology results. - Repeat colonoscopy in 5 years for surveillance based on pathology results. - depending on overall health at time of possible repeat My findings are described in the full procedure note, which is enclosed. If I can be of further assistance, please feel free to contact me at Doctor phone number(s): , Work: . Sincerely, MD Marcela Aldana MD 04/17/2025 10:55:52 AM This report has been signed electronically.
--- NOTE | 2025-04-17 11:34 | PCM.POSTANE2 ---
Anesthesia Postop Eval I Sum Postop Eval Completion status Anesthesia document: Postop Eval 1 completed: Yes Anesthesia Postop Eval I Summary Anesthesia Postop Eval I Summary: Anesthesia Postop Eval I: Assessment Summary Airway patent Yes 04/17/25 10:54 [email or web address] Spontaneous unlabored Yes 04/17/25 10:54 [email or web address] respirations Mental status Awake,Calm 04/17/25 10:54 [email or web address] nausea No 04/17/25 10:54 [email or web address] Vomiting No 04/17/25 10:54 [email or web address] Anesthesia Postop Eval I: Fluid Summary Crystalloid volume administer 600 04/17/25 10:54 [email or web address] (ml) Colloids volume administered ( ml) Blood Product volume administered (ml) Total IV fluid infused 600 04/17/25 10:54 [email or web address] Anesthesia Postop Eval I: Summary Notes Anesthesia Complication No 04/17/25 10:54 [email or web address] Anesthesia Complication Comment: Post-operative progress note Anesthesia: Postop Eval II Evaluation Mental status: Awake and Calm Pain Level: 1 nausea: No Vomiting: No Complications Anesthesia Complication: No
== END 2025-04-17 11:43 | disposition home or self-care (01) ==
LOC: EN 08:23 → AC 08:24
PROVIDERS: PCP Nurse Practitioner Family; Referring Provider Nurse Practitioner Family; Visit Provider Surgery
PROC: 0DJD8ZZ Inspection of Lower Intestinal Tract, Via Natural or Artificial Opening Endoscopic (ICD-10-PCS; CPT 45378; principal; 2025-04-17 09:25)
DX: K29.50 Unspecified chronic gastritis without bleeding (principal); J44.9 Chronic obstructive pulmonary disease, unspecified; I48.91 Unspecified atrial fibrillation; E11.42 Type 2 diabetes mellitus with diabetic polyneuropathy; E78.00 Pure hypercholesterolemia, unspecified; I10 Essential (primary) hypertension; K57.30 Diverticulosis of large intestine without perforation or abscess without bleeding; M79.7 Fibromyalgia; Z87.891 Personal history of nicotine dependence; Z79.899 Other long term (current) drug therapy; K21.9 Gastro-esophageal reflux disease without esophagitis; R39.16 Straining to void; D12.0 Benign neoplasm of cecum; D12.2 Benign neoplasm of ascending colon; K52.9 Noninfective gastroenteritis and colitis, unspecified
CPT/HCPCS: 45385; 45380; 43239; 82962; 88305; 88342; J2405